=== PATIENT | female | born 1945 | race Caucasian/White ===

== ENCOUNTER → 2018-08-29 13:06 | Outpatient (CLI) | payer OTHER, SELFPAY ==
[2018-08-29 13:18] VITALS: BP 120/71; PULSE 105; RESP 16; TEMP 37; O2SAT 97; BMI 35.3
[2018-08-29 14:01] VITALS: BP 119/64; PULSE 100; RESP 16; TEMP 37.2; O2SAT 96
[2018-08-29 14:39] VITALS: BP 120/64; PULSE 97; RESP 16; TEMP 37.1; O2SAT 98
== END ==
PROVIDERS: Family Provider Family Medicine; PCP Family Medicine; Referring Provider Internal Medicine Hematology & Oncology; Visit Provider Internal Medicine Hematology & Oncology
DX: C92.00 Acute myeloblastic leukemia, not having achieved remission (principal)
CPT/HCPCS: 36430; 86900; 86965; J7040; P9035; A4216

== ENCOUNTER → 2018-09-02 08:45 | Outpatient (CLI) | payer OTHER, SELFPAY ==
[2018-09-02 08:55] VITALS: BP 137/69; PULSE 91; RESP 16; TEMP 36.7; O2SAT 98; BMI 35.3
[2018-09-02 09:47] VITALS: BP 118/65; PULSE 91; RESP 18; TEMP 36.4; O2SAT 98
[2018-09-02 10:21] VITALS: BP 115/65; PULSE 94; RESP 18; TEMP 36.8
[2018-09-02 10:50] VITALS: BP 124/61; PULSE 94; RESP 16; TEMP 37.1
[2018-09-02] MEDS: DiphenhydrAMINE 50 MG/ML Syringe IV (11:05)
--- NOTE | 2018-09-02 11:29 | NURSING ---
HIVES IMPROVED POST BENADRYL, PLATELETS RESTARTED, WILL MONITOR FOR FURTHER SYMPTOMS
[2018-09-02 12:02] VITALS: BP 124/71; PULSE 91; RESP 18; TEMP 36.6; O2SAT 100
== END ==
PROVIDERS: Family Provider Family Medicine; PCP Family Medicine; Referring Provider Internal Medicine Hematology & Oncology; Visit Provider Internal Medicine Hematology & Oncology
DX: C92.00 Acute myeloblastic leukemia, not having achieved remission (principal)
CPT/HCPCS: 36430; 86644; 86900; 86965; J7040; J7050; P9035; A4216

== ENCOUNTER → 2018-09-05 08:42 | Outpatient (CLI) | payer OTHER, SELFPAY ==
[2018-09-05] VITALS (9 sets, daily range): BP systolic 91–124; BP diastolic 50–70; PULSE 82–92; RESP 16–18; TEMP 36.8–37.2; O2SAT 95–99; BMI 35.0
[2018-09-05] MEDS: Acetaminophen 325 MG Tablet 650 MG PO (09:06)
[2018-09-05] MEDS: DiphenhydrAMINE 50 MG/ML Syringe IV (09:06)
--- OUTSIDE RECORDS SUMMARY | 2018-09-05 09:42 | XMS RPT_ITS ---
:1945 Author Organization OHIP Care Team Providers Name Role Phone Stephane Knapp Attending Unavailable Masci, Stephane Referring Unavailable Kornhaus, Yariel Primary Care Unavailable Masci, Stephane Attending Unavailable Masci, Stephane Referring Unavailable Kornhaus, Yariel Primary Care Unavailable Masci, Stephane Attending Unavailable Masci, Stephane Referring Unavailable Kornhaus, Yariel Primary Care Unavailable MASCI STEPHANE PIERRE Attending Unavailable JACKLYN MCCARTY, DR. VALDEZ Primary Care Unavailable DOROTHY SEPULVEDA JR Attending Unavailable NATALYACHRISTINA SAGEIPTMagnolia Admitting Unavailable MOE EDEN Attending Unavailable MASCI, STEPHANE Eubanks Attending Unavailable MOE EDEN Referring Unavailable MASCI, STEPHANE Eubanks Referring Unavailable MASCI, STEPHANE Eubanks Referring Unavailable MASCI, STEPHANE Eubanks Referring Unavailable MASCI, STEPHANE Eubanks Referring Unavailable MASCI, STEPHANE Eubanks Referring Unavailable MASCI, STEPHANE Eubanks Referring Unavailable MASCI, STEPHANE Eubanks Referring Unavailable MASCI, STEPHANE Eubanks Referring Unavailable MASCI, STEPHANE Eubanks Referring Unavailable MASCI, STEPHANE Eubanks Referring Unavailable MASCI, STEPHANE Eubanks Referring Unavailable DOROTHY SEPULVEDA Attending Unavailable IMCA Referring Unavailable IMCA Primary Care Unavailable SOWMYA PEREZ Admitting Unavailable NEMUNASOWMYA STEEL Attending Unavailable JOSÉ MIGUEL VILLASENOR MD Referring Unavailable NEMSHANA SOWMYA Primary Care Unavailable JOSÉ MIGUEL VILLASENOR MD Consulting Unavailable PROVIDER, UNKNOWN Consulting Unavailable PROVIDER, UNKNOWN Consulting Unavailable PROVIDER, UNKNOWN Consulting Unavailable JOSÉ MIGUEL VILLASENOR MD Admitting Unavailable JOSÉ MIGUEL VILLASENOR MD Attending Unavailable JOSÉ MIGUEL VILLASENOR MD Primary Care Unavailable JOSÉ MIGUEL VILLASENOR MD Consulting Unavailable PROVIDER, UNKNOWN Consulting Unavailable PROVIDER, UNKNOWN Consulting Unavailable PROVIDER, UNKNOWN Consulting Unavailable PROBLEMS PROBLEMS DATE TYPE CONDITION / CODE ATTENDING STATUS SOURCE 09/01/2018 Unknown 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, 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 / C92.00(ICD-10) 08/28/2018 Active Retention of BENNETT EDWARDS, Active [place] urine, unspecified [facility] Other / R33.9(ICD-10) [facility] Repository 08/28/2018 Admitting Unknown / DOROTHY SEPULVEDA Active [facility] diagnosis [facility]Unknown[facility] Repository 08/19/2018 Active Other pancytopenia SEKER, Active [place] / D61.818(ICD-10) [facility] Repository 08/18/2018 Active Other specified SEKERES, Active [place] diseases of anus [facility] and rectum / [facility] K62.89(ICD-10) Repository 08/16/2018 Active Immunodeficiency, SEKERES, Active [place] unspecified / [facility] D84.9(ICD-10) [facility] Repository 08/14/2018 Active Acute leukemia of [facility], Active [place] unspecified cell [facility] type not having [facility] achieved remission Repository / C95.00(ICD-10) PROCEDURES PROCEDURES No Procedure Records FoundRESULTS RESULTS [place] CBC Collected: 09/04/2018 Status: F Source: [place] 8:55 AM [facility] MAIN CAMPUS REPOSITORY TYPE CODE TESTS RESULT OUT OF REFERENCE UNITS RANGE LAB WWBC 3.70-11.00 k/uL [place] WBC 7.73 LAB WRBC Low 3.90-5.20 m/uL [place] RBC 2.50 LAB WHGB Low 11.5-15.5 g/dL [place] 8.0 Hemoglobin LAB WHCT Low 36.0-46.0 % [place] 24.3 Hematocrit LAB WMCV 80.0-100.0 fL [place] MCV 97.2 LAB WMCH 26.0-34.0 pg [place] MCH 32.0 LAB WMCHC 30.5-36.0 g/dL [place] MCHC 32.9 LAB WRDW High 11.5-15.0 % [place] RDW 18.5 LAB WPLT Low Alert 150-400 k/uL [place] 9 Platelet Cnt LAB WMPV Low 9.0-12.7 fL [place] MPV 8.7 Result Comment: Test performed at: [facility], [address] [place] [address]. LAB ABSNUC <0.01 k/uL Absolute Rechecked, nRBC called to and read back by: Result Comment: JOSHUA BY Lopez MARIA 0922 TYPE AND SCREEN Collected: 09/04/2018 Status: P Source: [place] 8:51 AM [facility] REPOSITORY Order Comment: PRETRANSFUSION HGB = 8.0 HCT = PERFORMED AT CCFWPRETRANSFUSION PLT = 9 PERFORMED AT CCFWCMV NEG?* NCMV NEG? NGive When? 09/05 @0900Irradiated? NLeukodepleted? YReason for Type AND Screen/Red Cells: ANEMIA TYPE CODE TESTS RESULT OUT OF RANGE REFERENCE UNITS LAB B10.0800 Normal BLOOD O TYPE GEL NEGATIVE LAB B100.4000 Normal Antibody NEGATIVE Screen Performed By: #### B101.7450 #### [facility] [address] [place], [address] [place] ABS GR + CBC Collected: 09/01/2018 Status: F Source: [place] 9:06 AM [facility] [place] REPOSITORY TYPE CODE TESTS RESULT OUT OF REFERENCE UNITS RANGE LAB WWBC 3.70-11.00 k/uL [place] 6.74 WBC Result Comment: No clot detected. LAB WRBC Low 3.90-5.20 m/uL [place] RBC 2.85 LAB WHGB Low 11.5-15.5 g/dL [place] 9.0 Hemoglobin LAB WHCT Low 36.0-46.0 % [place] Hematocrit 26.9 LAB WMCV 80.0-100.0 fL [place] MCV 94.9 LAB WMCH 26.0-34.0 pg [place] MCH 31.6 LAB WMCHC 30.5-36.0 g/dL [place] MCHC 33.5 LAB WRDW High 11.5-15.0 % [place] RDW 18.0 LAB WPLT Low 150-400 k/uL [place] 11 Platelet Cnt Result Comment: CALLED TO JOSHUA,LEONARDO,[id number],BYJOSE MIGUEL LAB WMPV 9.0-12.7 fL [place] MPV 11.6 Result Comment: Test performed at: [facility], [address] [place] [address] Rd[address] [place] [address]. LAB ABGRAN Low 1.45-7.50 k/uL Absol Gran Count 0.19 Performed By: #### WAGCBC #### [facility] [address], [place] [address] ABO RH BLOOD TYPE, Collected: 09/01/2018 Status: F Source: [place] PATIENT 8:57 AM [facility] REPOSITORY Order Comment: PRETRANSFUSION PLT = 11 PERFORMED AT [facility] NEG? NGive When? 09/02Irradiated? N TYPE CODE TESTS RESULT OUT OF RANGE REFERENCE UNITS LAB B10.0800 Normal O BLOOD TYPE NEGATIVE GEL Performed By: #### B10.0010 #### [facility] [address] [place], [place], [id number] PPHR Collected: 09/01/2018 Status: F Source: [place] 8:57 AM [facility] REPOSITORY TYPE CODE TESTS RESULT OUT OF REFERENCE UNITS RANGE LAB U100.0700 [id number] TRANSFUSED PRODUCT: Platelets Apheresis PPHR LR SD COUNT: 2 Performed By: #### U100.0700 #### Non-[facility] - refer to report for specific site [place] CBC Collected: 08/28/2018 Status: F Source: [place] 12:34 PM CLINIC MAIN CAMPUS REPOSITORY TYPE CODE TESTS RESULT OUT OF REFERENCE UNITS RANGE LAB WWBC 3.70-11.00 k/uL [place] 6.44 WBC Result Comment: Result rechecked. LAB WRBC Low 3.90-5.20 m/uL [place] RBC 3.11 LAB WHGB Low 11.5-15.5 g/dL [place] 9.8 Hemoglobin LAB WHCT Low 36.0-46.0 % [place] Hematocrit 29.7 LAB WMCV 80.0-100.0 fL [place] MCV 95.5 LAB WMCH 26.0-34.0 pg [place] MCH 31.5 LAB WMCHC 30.5-36.0 g/dL [place] MCHC 33.0 LAB WRDW High 11.5-15.0 % [place] RDW 17.9 LAB WPLT Low 150-400 k/uL [place] 14 Platelet Cnt Result Comment: Rechecked, called to and read back by: MADELAINE AUUGST,[id number],GUI LAB WMPV 9.0-12.7 fL [place] MPV 11.6 Result Comment: Test performed at: [facility], [address] [place] [address] Rd[address] [place] [address]. LAB ABSNUC <0.01 k/uL Absolute nRBC PRELIM WBC 6.57 Performed By: #### WCBC #### [facility] [address] [place], [place] [address] ABO RH BLOOD TYPE, Collected: 08/28/2018 Status: F Source: [place] PATIENT 12:30 PM [facility] REPOSITORY Order Comment: PRETRANSFUSION PLT = 14 PERFORMED AT [facility] NEG? NGive When? 08/29 1300Irradiated? N TYPE CODE TESTS RESULT OUT OF RANGE REFERENCE UNITS LAB B10.0800 Normal O BLOOD TYPE NEGATIVE GEL Performed By: #### B10.0010 #### [facility] [address] [place], [address] PPHR Collected: 08/28/2018 Status: F Source: [place] 12:30 PM [facility] REPOSITORY TYPE CODE TESTS RESULT OUT OF REFERENCE UNITS RANGE LAB U100.0700 [id number] TRANSFUSED PRODUCT: Platelets Apheresis PPHR LR SD COUNT: 1 Performed By: #### U100.0700 #### Non-[facility] - refer to report for specific site PROGRESS Observed: 08/28/2018 Status: COMPLETED Source: [place] 11:41 AM CLINIC OTHER CAMPUS REPOSITORY HNO ID: [id number]: Dorothy Sepulveda Jr.Service: (none)Author Type: PhysicianType: Progress NotesFiled: 08/28/2018 11:42 AMNote Text:NEW PATIENT HISTORY AND PHYSICAL EXAMPATIENT INFO: Tari Black 73 year oldREFERRING PROVIDER:Data UnavailablePCP: Yariel Villasenor MDLeandro Black is a 73 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 Undergoing treatment.Ended up in retention. Catheter placed. Had subsequently been cathingafter. Voiding well now. pvr 8cc today.Review of SystemsConstitutional: Negative.Respiratory: Negative.Cardiovascular: Negative.Gastrointestinal: Negative.Genitourinary: Negative.Skin: Negative.Neurological: Negative.Psychiatric/Behavioral: Negative.LAB:CreatinineDate Value Ref Range Gryoyr6008/19/2018 0.75 0.58 - 0.96 mg/dL Final No results found for: PSAGlucose, Urine (mg/dL)Date Value08/19/2018 Negative Bilirubin, Urine (no units)Date Value08/19/2018 Negative Ketones, Urine (no units)Date Value08/19/2018 Negative Specific [place], Ur (no units)Date Value08/19/2018 1.014 Hemoglobin/Blood,Ur ( )Date Value08/19/2018 1+ pH, Urine (no units)Date Value08/19/2018 7.0 Protein, Urine (mg/dL)Date Value08/19/2018 Negative Nitrites (no units)Date Value08/19/2018 Negative WBC, Urine (/HPF)Date Value08/19/2018 0-5 MEDICATIONS:ondansetron (ZOFRAN) 8 mg tablet Take 1 tablet by mouth every 8 hours asneeded for Nausea/Vomiting.acyclovir (ZOVIRAX) 400 mg tablet Take 1 tablet by mouth twice daily.tamsulosin ER (FLOMAX) 0.4 mg cap Take 1 capsule by mouth once daily.Catheter (SELF-CATHETER, FEMALE) 14 Fr misc Insert 1 Each into the urethraas needed (5x daily as needed for urinary retention).levoFLOXacin (LEVAQUIN) 500 mg tablet Take 1 tablet by mouth once daily.Take until directed to stop.HISTORIESPAST MEDICAL HISTORYDiagnosis Date- Arthritis- HypertensionFAMILY HISTORYProblem Relation Age of Onset- Diabetes Mother- Heart Father- Breast Cancer SisterSOCIAL HISTORYSocial HistorySubstance Use Topics- Smoking status: Never Smoker- Smokeless tobacco: Never Used- Alcohol use Not on filePHYSICAL EXAMINATIONHt 162.6 cm (5' 4) Wt 94.3 kg (208 lb) BMI 35.70 kg/m?General appearance: Well appearing, alert, in no acute distress andwell-hydrated, well nourishedSkin: Skin color, texture, turgor normal, no suspicious rashes or lesionsRespiratory:+ effortCardiovascular: Not examinedGI: Normal abdominal exam, Abdomen soft, non-tender. No masses,organomegalyMusculoskeletal: normal ROMNeuro: No gross neurologic defecitsGenitourinary: not examinedASSESSMENT:(R33.9) Urinary retention (primary encounter diagnosis)PLAN:Stop cathingStop flomaxFu prCipriano Sepulveda Jr, MD CNOV Observed: 08/28/2018 Status: COMPLETED Source: [place] 11:00 AM CLINIC OTHER CAMPUS REPOSITORY Office Visit (AKURFL) TARI BLACK ([id number]) 1945 [facility] Time Provider Pyzrwctsyh08/11/18 11:00 AM DOROTHY SEPULVEDA JR AKURFL During your visit today, we recorded the following information about you: Weight Height 94.3 kg 1.626 mMmariano Sepulveda Jr, MD 08/28/2018 11:42 AM SignedNEW PATIENT HISTORY AND PHYSICAL EXAMPATIENT INFO: Tari Black 73 year oldREFERRING PROVIDER:Data UnavailablePCP: Yariel Villasenor MDHPLeandro Black is a 73 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 Undergoing treatment.Ended up in retention. Catheter placed. Had subsequently been cathing after.Voiding well now. pvr 8cc today.Review of SystemsConstitutional: Negative.Respiratory: Negative.Cardiovascular: Negative.Gastrointestinal: Negative.Genitourinary: Negative.Skin: Negative.Neurological: Negative.Psychiatric/Behavioral: Negative.LAB:CreatinineDate Value Ref Range Dnfovb6208/19/2018 0.75 0.58 - 0.96 mg/dL Final No results found for: PSAGlucose, Urine (mg/dL)Date Value08/19/2018 Negative Bilirubin, Urine (no units)Date Value08/19/2018 Negative Ketones, Urine (no units)Date Value08/19/2018 Negative Specific [place], Ur (no units)Date Value08/19/2018 1.014 Hemoglobin/Blood,Ur ( )Date Value08/19/2018 1+ pH, Urine (no units)Date Value08/19/2018 7.0 Protein, Urine (mg/dL)Date Value08/19/2018 Negative Nitrites (no units)Date Value08/19/2018 Negative WBC, Urine (/HPF)Date Value08/19/2018 0-5 MEDICATIONS:ondansetron (ZOFRAN) 8 mg tablet Take 1 tablet by mouth every 8 hours as neededfor Nausea/Vomiting.acyclovir (ZOVIRAX) 400 mg tablet Take 1 tablet by mouth twice daily.tamsulosin ER (FLOMAX) 0.4 mg cap Take 1 capsule by mouth once daily.Catheter (SELF-CATHETER, FEMALE) 14 Fr misc Insert 1 Each into the urethra asneeded (5x daily as needed for urinary retention).levoFLOXacin (LEVAQUIN) 500 mg tablet Take 1 tablet by mouth once daily. Takeuntil directed to stop.HISTORIESPAST MEDICAL HISTORYDiagnosis Date- Arthritis- HypertensionFAMILY HISTORYProblem Relation Age of Onset- Diabetes Mother- Heart Father- Breast Cancer SisterSOCIAL HISTORYSocial HistorySubstance Use Topics- Smoking status: Never Smoker- Smokeless tobacco: Never Used- Alcohol use Not on filePHYSICAL EXAMINATIONHt 162.6 cm (5' 4) Wt 94.3 kg (208 lb) BMI 35.70 kg/m?General appearance: Well appearing, alert, in no acute distress andwell-hydrated, well nourishedSkin: Skin color, texture, turgor normal, no suspicious rashes or lesionsRespiratory:+ effortCardiovascular: Not examinedGI: Normal abdominal exam, Abdomen soft, non-tender. No masses, organomegalyMusculoskeletal: normal ROMNeuro: No gross neurologic defecitsGenitourinary: not examinedASSESSMENT:(R33.9) Urinary retention (primary encounter diagnosis)PLAN:Stop cathingStop flomaxFu prnMmariano Sepulveda Jr, MDReferring Provider: SELF [200]Allergies As of Date: 08/28/2018(No Known Allergies)Date Reviewed: 08/28/2018Reviewed by: Dorothy Sepulveda Jr. - Fully AssessedReason for Visit: New Patient [172] Urinary Retention [228]Primary Visit Diagnosis:Urinary retention [R33.9]Order(s):UA DIP, URINE (POC) [[id number]] Order #: [id number] #:[id number] as of 08/28/2018 Sig: ONDANSETRON HCL 8 MG TABLET Take 1 tablet by mouth every * ACYCLOVIR 400 MG TABLET Take 1 tablet by mouth twice * TAMSULOSIN 0.4 MG CAPSULE Take 1 capsule by mouth once * CATHETER 14 FR Insert 1 Each into the urethr* LEVOFLOXACIN 500 MG TABLET Take 1 tablet by mouth once d*Problem List As Of Date 08/28/2018 Noted Resolved Pancytopenia (HCC) [D61.818] INVALID FOR* Priority: B More... HTN (hypertension) [I10] INVALID FOR* Priority: F More... Immunodeficiency (HCC) [D84.9] INVALID FOR* Priority: D More... Hospital discharge follow-up [Z09] More... Headache [R51] 08/20/2018 Priority: B More... Nausea [R11.0] 08/20/2018 Priority: C More... Electrolyte imbalance risk [Z91.89] Priority: F More... More... More... Rectal pain [K62.89] Priority: E More... Urinary retention [R33.9] Priority: H More... Acute leukemia (HCC) [C95.00] INVALID FOR* Priority: A More... Constipation [K59.00] INVALID FOR*08/20/2018 Priority: I More...Disposition: Return if symptoms worsen or fail to improve.Follow-up and Disposition History RecordedEncounter Number: [id number] Status:Closed by DOROTHY SEPULVEDA MD on 08/28/18 [place] MANUAL DIFF Collected: 08/25/2018 Status: F Source: [facility] 1:16 PM [facility] [place] ORDERABLE. REPOSITORY TYPE CODE TESTS RESULT OUT OF REFERENCE UNITS RANGE LAB WLYM % [place] 23 Lymp% LAB WBLAST High 0 % [place] 77 Blast LAB WRBCM [place] RBC Morph Slight Result Comment: Polychromasia Anisocytosis 1+ Ovalocytes LAB WPLTE [place] Platelet estimate Platelet Est decreased Performed By: #### WMANDF, WAGCBC #### [facility] [address] [place] [id number] [place] ABS GR + CBC Collected: 08/25/2018 Status: F Source: [place] 1:16 PM [facility] REPOSITORY TYPE CODE TESTS RESULT OUT OF REFERENCE UNITS RANGE LAB WWBC 3.70-11.00 k/uL [place] WBC 10.58 LAB WRBC Low 3.90-5.20 m/uL [place] RBC 3.25 LAB WHGB Low 11.5-15.5 g/dL [place] 10.2 Hemoglobin LAB WHCT Low 36.0-46.0 % [place] 31.0 Hematocrit LAB WMCV 80.0-100.0 fL [place] MCV 95.4 LAB WMCH 26.0-34.0 pg [place] MCH 31.4 LAB WMCHC 30.5-36.0 g/dL [place] MCHC 32.9 LAB WRDW High 11.5-15.0 % [place] RDW 17.4 LAB WPLT Low 150-400 k/uL [place] 19 Platelet Cnt Result Comment: Called to and read back by: Joshua Knapp's Office 08/25/18 1350 Neto Correct time called 1450 LAB WMPV 9.0-12.7 fL [place] MPV 10.5 Result Comment: Test performed at: [facility] [place], [address] [place] [address]. LAB ABGRAN Low 1.45-7.50 k/uL Absol Gran 0.00 Count LAB ABSNUC <0.01 k/uL Absolute PRELIM nRBC WBC 10.99 Performed By: #### WMANDF, WAGCBC #### [facility] [address] [place], [place] [address] CNCO Observed: 08/25/2018 Status: COMPLETED Source: [place] 12:00 AM [facility] REPOSITORY Letter TextOctober 2017[address] [place] [address]Lrha Ms. Black,The nurses and staff of F019befgdwc unit at [facility] hope this letterfinds you feeling well and progressing in your recovery. It was an honor forus to provide your nursing care. We know that placing our Patients First andmaintaining a culture of continuous improvement, each and every day, areessential to the success of our organization.We want to hear from you. If you have any comments, questions or concernsabout your hospital stay, please feel free to contact me, Camilla [phone] or e-mail [email or web address].Additionally, you will receive a survey in the mail asking you to rate thecare you received while in the hospital. Please take the time to completeand send back the survey. I personally review all the results and wouldappreciate your feedback. Please consider completing this survey for eachindividual visit.Thank you in advance for your participation and thank you for [facility].Sincerely,Camilla Brady WqhyauiO068 Leukemia Unit CNPN Observed: 08/25/2018 Status: COMPLETED Source: [place] 12:00 AM [facility] REPOSITORY Telephone (FISH) TARI BLACK ([id number]) 1945 [facility] Time Provider Cdqyfalupc78/8/18 STEPHANE KNAPP During your visit today, we recorded the following information about you:Emma Campoverde LPN, PAINTER APPRENTICE 08/25/2018 2:53 PM SignedPatient?s identity has been confirmed by name and birthdate: YesCall received from April Richey at 2:50 PM to report an urgent value forPlatelets with a result of 19. Dr. Knapp was notified of the result at 3:00PM.Osmar Yan DO 08/25/2018 3:01 PM SignedNo transfusion indicated. We will be rechecking CBC for possible transfusion onThursday.Sofya Bray Psr 08/25/2018 5:01 PM SignedLeft detailed message on secured voicemail as indicated below.Allergies As of Date: 08/25/2018(No Known Allergies)Date Reviewed: 08/20/2018Reviewed by: Lesli Hook - Fully AssessedReason for Visit: urgent results [Other]Prescriptions as of 08/25/2018 Sig: PROMETHAZINE 25 MG TABLET Take 1 tablet by mouth every * ACYCLOVIR 400 MG TABLET Take 1 tablet by mouth twice * TAMSULOSIN 0.4 MG CAPSULE Take 1 capsule by mouth once * CATHETER 14 FR Insert 1 Each into the urethr* LEVOFLOXACIN 500 MG TABLET Take 1 tablet by mouth once d* ONDANSETRON HCL 4 MG TABLET Take 1 tablet by mouth every *Problem List As Of Date 08/25/2018 Noted Resolved Pancytopenia (HCC) [D61.818] INVALID FOR* Priority: B More... HTN (hypertension) [I10] INVALID FOR* Priority: F More... Immunodeficiency (HCC) [D84.9] INVALID FOR* Priority: D More... Hospital discharge follow-up [Z09] More... Headache [R51] 08/20/2018 Priority: B More... Nausea [R11.0] 08/20/2018 Priority: C More... Electrolyte imbalance risk [Z91.89] Priority: F More... More... More... Rectal pain [K62.89] Priority: E More... Urinary retention [R33.9] Priority: H More... Acute leukemia (HCC) [C95.00] INVALID FOR* Priority: A More... Constipation [K59.00] INVALID FOR*08/20/2018 Priority: I More... Status:Closed by EMMA CAMPOVERDE on 08/25/18 PROGRESS Observed: 08/22/2018 Status: COMPLETED Source: [place] 3:23 PM [facility] REPOSITORY HNO ID: [id number]: Samra (True) Guevara: (none)Author Type: Social WorkerType: Progress NotesFiled: 08/22/2018 3:24 PMNote Text:Social Work Problem Referral NoteINFORMATION/REFERRAL : Tari Black 73 year old female was referred byphysician - Dr. Knapp to [facility] Social Work for the followingreason(s): financial assistance - meals, parking, etc.PERSONS INTERVIEWED: family - Name: Darron and physician - Dr. SchaefferNTERVENTION: Phone Contact, Team Meeting and Information AND ReferralService Co-ordinationAffect/Mood: The patient is noted as patient not presentIDENTIFIED PROBLEMS/NEEDS: FinancialIntervention/Referral to be provided:Arrangements made for continuity ofcareIMPRESSION/PLAN: TRUE spoke with patient's family member Darron and obtainedhousehold income information. TRUE spoke with patient's doctor regardingfinancial needs for [employer]. TRUE provided completed application to pharmacyto submit to [email or web address] APPOINTMENT: YESENIA Choi Observed: 08/22/2018 Status: COMPLETED Source: [place] 12:00 AM [facility] REPOSITORY Social Work (FISH) TARI BLACK ([id number]) 1945 FDate Time Provider Xuoxkxqjmj26/5/18 SAMRA BERKOWITZ (TRUE) HEMAWS During your visit today, we recorded the following information about you:YESENIA Christopher 08/22/2018 3:24 PM SignedSocial Work Problem Referral NoteINFORMATION/REFERRAL : Tari Black 73 year old female [facility] the following reason(s):financial assistance - meals, parking, etc.PERSONS INTERVIEWED: family - Name: Darron and physician - Dr. SchaefferNTERVENTION: Phone Contact, Team Meeting and Information AND Referral ServiceCo-ordinationAffect/Mood: The patient is noted as patient not presentIDENTIFIED PROBLEMS/NEEDS: FinancialIntervention/Referral to be provided:Arrangements made for continuity of careIMPRESSION/PLAN: TRUE spoke with patient's family member Darron and obtainedhousehold income information. TRUE spoke with patient's doctor regardingfinancial needs for [employer]. TRUE provided completed application to pharmacy tosubmit to [email or web address] APPOINTMENT: Nora Choi As of Date: 08/22/2018(No Known Allergies)Date Reviewed: 08/20/2018Reviewed by: Lesli Hook - Fully AssessedReason for Visit: Social Work Services [507]Prescriptions as of 08/22/2018 Sig: PROMETHAZINE 25 MG TABLET Take 1 tablet by mouth every * ACYCLOVIR 400 MG TABLET Take 1 tablet by mouth twice * TAMSULOSIN 0.4 MG CAPSULE Take 1 capsule by mouth once * CATHETER 14 FR Insert 1 Each into the urethr* OXYCODONE 5 MG TABLET Take 1 tablet by mouth every * LEVOFLOXACIN 500 MG TABLET Take 1 tablet by mouth once d* ONDANSETRON HCL 4 MG TABLET Take 1 tablet by mouth every *Problem List As Of Date 08/22/2018 Noted Resolved Pancytopenia (HCC) [D61.818] INVALID FOR* Priority: B More... HTN (hypertension) [I10] INVALID FOR* Priority: F More... Immunodeficiency (HCC) [D84.9] INVALID FOR* Priority: D More... Hospital discharge follow-up [Z09] More... Headache [R51] 08/20/2018 Priority: B More... Nausea [R11.0] 08/20/2018 Priority: C More... Electrolyte imbalance risk [Z91.89] Priority: F More... More... More... Rectal pain [K62.89] Priority: E More... Urinary retention [R33.9] Priority: H More... Acute leukemia (HCC) [C95.00] INVALID FOR* Priority: A More... Constipation [K59.00] INVALID FOR*08/20/2018 Priority: I More... Status:Closed by SAMRA BERKOWITZ on 08/22/18 [place] CBC Collected: 08/20/2018 Status: F Source: [place] 4:20 PM [facility] REPOSITORY TYPE CODE TESTS RESULT OUT OF REFERENCE UNITS RANGE LAB WWBC 3.70-11.00 k/uL [place] WBC 9.47 LAB WRBC Low 3.90-5.20 m/uL [place] RBC 3.19 LAB WHGB Low 11.5-15.5 g/dL [place] 10.0 Hemoglobin LAB WHCT Low 36.0-46.0 % [place] 30.2 Hematocrit LAB WMCV 80.0-100.0 fL [place] MCV 94.7 LAB WMCH 26.0-34.0 pg [place] MCH 31.3 LAB WMCHC 30.5-36.0 g/dL [place] MCHC 33.1 LAB WRDW High 11.5-15.0 % [place] RDW 17.4 LAB WPLT Low 150-400 k/uL [place] 24 Platelet Cnt Result Comment: Result checked and verified LAB WMPV 9.0-12.7 fL [place] MPV 11.4 Result Comment: Test performed at: [facility], [address] [place] [address]. PROGRESS Observed: 08/20/2018 Status: COMPLETED Source: [place] 3:22 PM [facility] REPOSITORY HNO ID: [id number]: Stephane Zuleta: (none)Author Type: PhysicianType: Progress NotesFiled: 08/21/2018 1:04 PMNote Text:Patient referred following [facility] discharge for [facility] for [facility].HPI: Patient is a 73-year-old female with a past medical historysignificant for hypertension who was seen by her PCP for increasingfatigue and headache. CBC evidently revealed pancytopenia with 68% blastson peripheral smear. Patient was admitted directly to main campus.Per recent hospital discharge Principal Problem: Acute leukemia (HCC) Overview: Tari Black is a 73 year old female with PMH of HTN andarthritis being admitted due to concern for acute leukemia after going to her PCP for upset stomach, headaches, and fatigue (CBC showing pancytopenia). - 68% peripheral blasts on CBC, 08/16. - 08/15 peripheral flow: AML - CXR No acute findings, EKG NSR - mIVF, allopurinol, TLS labs daily - BMBx 08/15 -->path in process. - Discussion of treatment options, 08/17 --> Vidaza locally.Appointment scheduled for 08/[address] [place] [address] 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 - CT A/P: no e/o perianal abscess. - Start sitz baths PRN - Continue PRN Oxy IR - Continue topical Lidocaine PRN - Continue bowel regimen -->improving, 08/18.? HTN (hypertension) Overview: - Hold home Lisinopril w/ soft BPs, c/o intermittentdizziness? Electrolyte imbalance risk Overview: - Replete K, Mg per protocol - Reg diet? Urinary retention Overview: Urinary retention noted on 08/15, possibly r/t constipationvs rectal pain - Strict I AND O' s - Continue bowel regimen -Discontinue angel catheter 08/18 - Bladder Scan on 08/19 with >900 cc urine retained; Straight Cath;Urology consulted, appreciate assistance - Urine culture; UA ordered - Flomax started (daily) 08/19? Hospital discharge follow-up Overview: - Appointment scheduled in [place] with Dr. Knapp for 08/20. - Follow up with Urology requested; Patient will get phone call toverify date and time; F/u with PCP int med (Dr Avalos) at [facility] on Saturday at 3PM - Home care consult for straight cath (Supplies per CM)BONE MARROW ASPIRATE, TOUCH PREPARATION, CLOT SECTION, CORE BIOPSY ANDPERIPHERAL BLOOD (A-C):- ?ACUTE MYELOID LEUKEMIA, SEE COMMENT.COMMENT: Further subclassification requires correlation with clinicalpresentation and with pending molecular and cytogenetic studies. 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 She's had nofever. However she said she did feel rather poorly today. No shakingchills. Appetite is doing fair. Her hospitalization was complicated byurinary retention. This is been symptomatic for several weeks prior to herpresentation. She's had to straight catheter this morning. She is using afresh dural catheter each time she does. No dysuria or gross hematuria.She's not had any unusual bleeding but is bruising rather easily.PHYSICAL EXAM:Vitals: Blood pressure 136/77, pulse 88, temperature 37.2 ?C (98.9 ?F),temperature source Oral, height 165.1 cm (5' 5), weight 98.9 kg (218 lb).Fatigued-appearing and in no acute distress.EYES: Sclerae are anicteric bilaterally.NECK: Supple.LYMPHATIC: There is no palpable cervical, supraclavicular adenopathy.RESPIRATORY: Inspiratory breath sounds are of normal intensity in allfields. No rales, wheezes or rhonchi.CARDIOVASCULAR: Rhythm is regular. Normal intensity S1/S2. There is nogallop or murmur.ABDOMEN: The abdomen is nondistended. No organomegaly. No tenderness.Extremities: No swelling or edema.SKIN: No jaundice or rash. No petechiae. 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 She did not want to undergo induction chemotherapywhich I think was a very good decision on her part. We discussed the roleof Vidaza and management of AML especially in elderly patients and Ipointed out some of the trials guiding our decisions. She is a goodcandidate for treatment. She has good social support although she will becommuting quite a distance fairly often to undergo therapy andassess/received transfusional support. She understands that hertransfusion need will likely increase in frequency especially during thefirst several months of treatment. She also understands that the goal oftherapy is likely prolongation without cure. She also understands thetreatment would be indefinitely as long she is tolerating it well and itis leading to clinical benefit, i.e. reduction in transfusion requirementfor prevention of progression leukemia.-I discussed the rationale, logistics, potential risks (including ),benefits and alternatives, as well as the personnel involved in theadministration of azacitadine. I answered her questions in detail and sheverbalized understanding and agreed with the recommended therapy. Pleasesee the electronic consent document for details of doses and schedule.Plan:-CBC/possible transfusion twice weekly.-Begin Vidaza next week.-Bone marrow biopsy after 4-6 months of therapy.-Referral to gynecology for assessment urinary retention.Total muqa-hq-siwy time was >60 minutes with greater than 45 minutes spentdiscussing the issues outlined above and/or coordinating care.Stephane Knapp DO CNOVSP Observed: 08/20/2018 Status: COMPLETED Source: [place] 3:00 PM [facility] REPOSITORY Visit (SP) Office (FISH) TARI BLACK ([id number]) [address] [facility] Provider Fclytaqxnw78/3/18 3:00 PM STEPHANE KNAPP During your visit today, we recorded the following information about you: Temperature Pulse Blood pressure Weight 98.9 degrees 88/minute 136/77 98.9 kg Height 1.651 Roman Knapp DO 08/21/2018 1:04 PM SignedPatient referred following hospital discharge for [facility].HPI: Patient is a 73-year-old female with a past medical history significantfor hypertension who was seen by her PCP for increasing fatigue and headache.CBC evidently revealed pancytopenia with 68% blasts on peripheral smear.Patient was [facility].Per recent hospital discharge Principal Problem: Acute leukemia (HCC) Overview: Tari Black is a 73 year old female with PMH of HTN and arthritisbeing admitted due to concern for acute leukemia after going to her PCP for upset stomach, headaches, and fatigue (CBC showing pancytopenia). - 68% peripheral blasts on CBC, 08/16. - 08/15 peripheral flow: AML - CXR No acute findings, EKG NSR - mIVF, allopurinol, TLS labs daily - BMBx 08/15 -->path in process. - Discussion of treatment options, 08/17 --> Vidaza locally. Appointment scheduled for 08/[address] [place] [address] 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 - CT A/P: no e/o perianal abscess. - Start sitz baths PRN - Continue PRN Oxy IR - Continue topical Lidocaine PRN - Continue bowel regimen -->improving, 08/18.? HTN (hypertension) Overview: - Hold home Lisinopril w/ soft BPs, c/o intermittent dizziness? Electrolyte imbalance risk Overview: - Replete K, Mg per protocol - Reg diet? Urinary retention Overview: Urinary retention noted on 08/15, possibly r/t constipation vsrectal pain - Strict I AND O' s - Continue bowel regimen -Discontinue angel catheter 08/18 - Bladder Scan on 08/19 with >900 cc urine retained; Straight Cath; Urology consulted, appreciate assistance - Urine culture; UA ordered - Flomax started (daily) 08/19? Hospital discharge follow-up Overview: - Appointment scheduled in [place] with Dr. Knapp for 08/20. - Follow up with Urology requested; Patient will get phone call to verify date and time; F/u with PCP int med (Dr Avalos) at [facility] on Saturday at 3PM - Home care consult for straight cath (Supplies per CM)BONE MARROW ASPIRATE, TOUCH PREPARATION, CLOT SECTION, CORE BIOPSY ANDPERIPHERAL BLOOD (A-C):- ?ACUTE MYELOID LEUKEMIA, SEE COMMENT.COMMENT: Further subclassification requires correlation with clinicalpresentation and with pending molecular and cytogenetic studies. 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 She's had no fever.However she said she did feel rather poorly today. No shaking chills. Appetiteis doing fair. Her hospitalization was complicated by urinary retention. Thisis been symptomatic for several weeks prior to her presentation. She's had tostraight catheter this morning. She is using a fresh dural catheter each timeshe does. No dysuria or gross hematuria. She's not had any unusual bleeding butis bruising rather easily.PHYSICAL EXAM:Vitals: Blood pressure 136/77, pulse 88, temperature 37.2 ?C (98.9 ?F),temperature source Oral, height 165.1 cm (5' 5), weight 98.9 kg (218 lb).Fatigued-appearing and in no acute distress.EYES: Sclerae are anicteric bilaterally.NECK: Supple.LYMPHATIC: There is no palpable cervical, supraclavicular adenopathy.RESPIRATORY: Inspiratory breath sounds are of normal intensity in all delgado.No rales, wheezes or rhonchi.CARDIOVASCULAR: Rhythm is regular. Normal intensity S1/S2. There is no gallopor murmur.ABDOMEN: The abdomen is nondistended. No organomegaly. No tenderness.Extremities: No swelling or edema.SKIN: No jaundice or rash. No petechiae. 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 She did not want to undergo induction chemotherapy which Ithink was a very good decision on her part. We discussed the role of Vidaza andmanagement of AML especially in elderly patients and I pointed out some of thetrials guiding our decisions. She is a good candidate for treatment. She hasgood social support although she will be commuting quite a distance fairlyoften to undergo therapy and assess/received transfusional support. Sheunderstands that her transfusion need will likely increase in frequencyespecially during the first several months of treatment. She also understandsthat the goal of therapy is likely prolongation without cure. She alsounderstands the treatment would be indefinitely as long she is tolerating itwell and it is leading to clinical benefit, i.e. reduction in transfusionrequirement for prevention of progression leukemia.-I discussed the rationale, logistics, potential risks (including ),benefits and alternatives, as well as the personnel involved in theadministration of azacitadine. I answered her questions in detail and sheverbalized understanding and agreed with the recommended therapy. Please seethe electronic consent document for details of doses and schedule.Plan:-CBC/possible transfusion twice weekly.-Begin Vidaza next week.-Bone marrow biopsy after 4-6 months of therapy.- Referral to gynecology for assessment urinary retention.Total nzck-wj-pjen time was >60 minutes with greater than 45 minutes spentdiscussing the issues outlined above and/or coordinating care.[facility] Provider: MOE EDEN [[id number]]Allergies As of Date: 08/20/2018(No Known Allergies)Date Reviewed: 08/20/2018Reviewed by: Lesli Hook - Fully AssessedReason for Visit: New Patient Evaluation [154]Primary Visit Diagnosis: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 FOR NAUSEADisp: 30 tabletRfl: 5 [place] CBC [SQWCBC] Order #: [id number] FUTUREFollow-up and Disposition History RecordedPrescriptions as of 08/20/2018 Sig: ACYCLOVIR 400 MG TABLET Take 1 tablet by mouth twice * TAMSULOSIN 0.4 MG CAPSULE Take 1 capsule by mouth once * CATHETER 14 FR Insert 1 Each into the urethr* OXYCODONE 5 MG TABLET Take 1 tablet by mouth every * LEVOFLOXACIN 500 MG TABLET Take 1 tablet by mouth once d* ONDANSETRON HCL 4 MG TABLET Take 1 tablet by mouth every * PROMETHAZINE 25 MG TABLET Take 1 tablet by mouth every *Problem List As Of Date 08/20/2018 Noted Resolved Pancytopenia (HCC) [D61.818] INVALID FOR* Priority: B More... HTN (hypertension) [I10] INVALID FOR* Priority: F More... Immunodeficiency (HCC) [D84.9] INVALID FOR* Priority: D More... Hospital discharge follow-up [Z09] More... Headache [R51] 08/20/2018 Priority: B More... Nausea [R11.0] 08/20/2018 Priority: C More... Electrolyte imbalance risk [Z91.89] Priority: F More... More... More... Rectal pain [K62.89] Priority: E More... Urinary retention [R33.9] Priority: H More... Acute leukemia (HCC) [C95.00] INVALID FOR* Priority: A More... Constipation [K59.00] INVALID FOR*08/20/2018 Priority: I More...Encounter Status:Closed by STEPHANE KNAPP DO on 08/21/18 CNDS Observed: 08/19/2018 Status: COMPLETED Source: [place] 7:03 PM [facility] REPOSITORY HNO ID: [id number]: Moe Mcdanielervice: Hematology/OncologyAuthor Type: PhysicianType: Discharge SummariesFiled: 09/02/2018 11:12 AMNote Text: DISCHARGE SUMMARYPATIENT NAME: Tari Black ADMISSION DATE: 08/14/2018MRN: [id number] DISCHARGE DATE: 08/19/2018ATTENDING PHYSICIAN: Dr Eden Code Status: Not on fileHighest Readmission Risk Score: 20 The 30 day readmissions risk score is derived from an internallyvalidated risk model which evaluates patient level characteristics,utilization history, medication orders and lab results up until the day ofdischarge. Patients with a score of 40 or above are considered highestrisk for readmission. Specific patient level drivers will be listed at thebottom of the summary.REASON FOR HOSPITALIZATION: Acute LeukemiaDIAGNOSIS: AMLOPERATIONS DURING HOSPITALIZATION: NonePROCEDURES DURING HOSPITALIZATION:[id number] brainHOSPITAL COURSE:Principal Problem: Acute leukemia (HCC) Overview: Tari Black is a 73 year old female with PMH of HTN andarthritis being admitted due to concern for acute leukemia after going to her PCP for upset stomach, headaches, and fatigue (CBC showing pancytopenia). - 68% peripheral blasts on CBC, 08/16. - 08/15 peripheral flow: AML - CXR No acute findings, EKG NSR - mIVF, allopurinol, TLS labs daily - BMBx 08/15 -->path in process. - Discussion of treatment options, 08/17 --> Vidaza locally.Appointment scheduled for 08/[address] [place] [address] 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 - CT A/P: no e/o perianal abscess. - Start sitz baths PRN - Continue PRN Oxy IR - Continue topical Lidocaine PRN - Continue bowel regimen -->improving, 08/18. HTN (hypertension) Overview: - Hold home Lisinopril w/ soft BPs, c/o intermittentdizziness Electrolyte imbalance risk Overview: - Replete K, Mg per protocol - Reg diet Urinary retention Overview: Urinary retention noted on 08/15, possibly r/t constipationvs rectal pain - Strict I AND O' s - Continue bowel regimen -Discontinue angel catheter 08/18 - Bladder Scan on 08/19 with >900 cc urine retained; Straight Cath;Urology consulted, appreciate assistance - Urine culture; UA ordered - Flomax started (daily) 08/19 Hospital discharge follow-up Overview: - Appointment scheduled in [place] with Dr. Knapp for 08/20. - Follow up with Urology requested; Patient will get phone call toverify date and time; F/u with PCP int med (Dr Avalos) at [facility] on Saturday at 3PM - Home care consult for straight cath (Supplies per CM)Resolved Problems: Headache Overview: - Resolved. - CT brain 08/14- Negative for acute findings - PRN oxy Nausea Overview: ?secondary to acute leukemia - Zofran PRN available - resolved Constipation Overview: -likely exacerbated by opioid use -Senna BID, Colace BID, Miralax daily -continue Lactulose PRN -resolvedCONSULTING TEAMS DURING HOSPITALIZATION: ColorectalPATIENT CONDITION AT DISCHARGE: StableDISCHARGE DISPOSITION: Home with Home Health CareINFORMATION PROVIDED TO PATIENT: Discharge instructionsDIET: Resume pre-hospital dietACTIVITY: Resume pre-hospital activityWOUND/SURGICAL SITE CARE: NoneALLERGIESNo Known AllergiesDISCHARGE MEDICATION:Discharge Medication List as of 08/19/2018 5:31 PMSTART taking these medicationsacyclovir (ZOVIRAX) 400 mg tabletTake 1 tablet by mouth twice daily.Normal, Disp-60 tablet, R-0tamsulosin ER (FLOMAX) 0.4 mg capTake 1 capsule by mouth once daily.Normal, Disp-14 capsule, R-0, Long-termCatheter (SELF-CATHETER, FEMALE) 14 Fr miscInsert 1 Each into the urethra as needed (5x daily as needed for urinaryretention).Print RX, Disp-200 Each, R-0oxyCODONE IR (ROXICODONE) 5 mg immediate release tabletTake 1 tablet by mouth every 6 hours as needed for Pain for up to 5 days.Print RX, Disp-10 tablet, R-0Dx: 1. Rectal painCONTINUE these medications which have CHANGEDlevoFLOXacin (LEVAQUIN) 500 mg tabletTake 1 tablet by mouth once daily. Take until directed to stop.Normal, Disp-30 tablet, R-0ondansetron (ZOFRAN) 4 mg tabletTake 1 tablet by mouth every 6 hours as needed. FOR NAUSEANormal, Disp-30 tablet, R-0FUTURE APPOINTMENTS:See schedule for follow up appointmentsThe patient's risk for 30-day readmission is determined using thefollowing contributing factors:Pt variables contributing to increased readmission risk: 12 Most Recent BUN Result 10.4 First Resulted Calcium During Admission 1 Insurance - Self Pay 1 Discharge Disposition - Home 1 History of AnemiaSIGNATURE: Harini Cassidy APRN.CNP PAGER/CONTACT #: [phone]: August 20, 2018TIME: 8:32 AMpotential risks of hospital discharge and parameters to return reviewedwith patient in detail. URINALYSIS Collected: 08/19/2018 Status: F Source: [place] 6:35 PM [facility] REPOSITORY TYPE CODE TESTS RESULT OUT OF RANGE REFERENCE UNITS LAB UCOL Yellow Color Yellow LAB [facility] Abnormal Clear Clarity Cloudy Alert LAB UGLUC Negative mg/dL Glucose, Urine Negative LAB UBIL Negative Bilirubin, Urine Negative LAB UKET Negative Ketones, Urine Negative LAB USPG 1.005-1.030 Specific 1.014 [place], Ur LAB UHGB Abnormal Negative 1+ Alert Hemoglobin/Blood, Ur LAB UPH 4.5-8.0 pH 7.0 LAB UPROT Negative mg/dL Protein, Urine Negative LAB UUROB Abnormal Normal Urobilinogen Alert Elevated LAB UNITR Negative Nitrites Negative LAB ULKEST Negative Leukest Negative LAB UCOM Comments SEE COMMENT Result Comment: Microscopic Examination Performed LAB UWBC 0-5 /HPF WBC 0-5 LAB URBC 0-3 /HPF RBC 0-3 LAB UCAST Abnormal Alert 0 /LPF SEE Cast COMMENT Result Comment: 1-3 Hyaline Cast LAB UEPI /HPF Epithelial Cells SEE COMMENT Result Comment: Few Squamous Epithelial Cells LAB UMCOM Urine Bradford SEE COMMENT Comment Result Comment: Result rechecked. Performed By: #### UA #### [facility] [address] [place], [place] [id number] Observed: 08/19/2018 Status: F Source: [place] URINE CULTURE 6:35 PM [facility] REPOSITORY Sp. Request/Comment: - Specimen received in preservativeCulture Result - No growth (<1,000 CFU/ml) Performed By: #### URCUL ####[facility] [address] [place], [place] [id number] PLAN OF CARE Observed: 08/19/2018 Status: COMPLETED Source: [place] 3:47 PM [facility] REPOSITORY HNO ID: [id number]: Cristina Kurtz (Meat Process Worker)Service: (none)Author Type: (none)Type: Plan of CareFiled: 08/19/2018 3:51 PMNote Text:PHARMACY BEDSIDE DELIVERY SERVICEPatient Name: Tari BlackMRN: [id number] marked outpatient medications were Filled at: [facility] anddelivered to the patient's bedside to patientMedication ListSTART taking these medicationsacyclovir 400 mg tabletCommonly known as: ZOVIRAXTake 1 tablet by mouth twice daily.DeliveredCatheter 14 Fr MiscCommonly known as: SELF-CATHETER, FEMALEInsert 1 Each into the urethra as needed (5x daily as needed for urinaryretention).levoFLOXacin 500 mg tabletCommonly known as: LevaQUINTake 1 tablet by mouth once daily. Take until directed to stop.Didn't receive rx for this medicationondansetron 4 mg tabletCommonly known as: ZOFRANTake 1 tablet by mouth every 6 hours as needed. FOR NAUSEADidn't receive rx for this medicationoxyCODONE IR 5 mg immediate release tabletCommonly known as: ROXICODONETake 1 tablet by mouth every 6 hours as needed for Pain for up to 5 days.Deliveredtamsulosin ER 0.4 mg CapCommonly known as: FLOMAXTake 1 capsule by mouth once daily.DeliveredApril Garland (Meat Process Worker)PAGER: [phone] 2017 3:47 PM PLAN OF CARE Observed: 08/19/2018 Status: COMPLETED Source: [place] 3:23 PM [facility] REPOSIT[facility] HNO ID: [id number]: Jez (Iglesia) JoealService: UrologyAuthor Type: ResidentType: Plan of CareFiled: 08/19/2018 3:26 PMNote Text:Notified by primary team that they would like to discharge patient todayand have her be seen as outpatient for urinary retention. She wascounseled on ISC v indwelling angel by primary and patient desires toperform ISC.- will arrange o/p urology follow up (requested on [employer])- please have her call urology appt scheduling [phone], if she hasnot heard back about appointment request- send urine culture to r/o UTI as source of retention- minimize anticholinergics, narcotics- aggressive bowel regimen to treat constipationMartín Berumen, [id number] NURSING PROG Observed: 08/19/2018 Status: COMPLETED Source: [place] 2:28 PM [facility] [place] REPOSITORY HNO ID: [id number]: Aggie (Rn) LORNA Madridervice: (none)Author Type: Registered NurseType: Nursing Progress NoteFiled: 08/19/2018 7:12 PMNote Text: Nursing Progress NotePatient Name: Tari BlackMRN: [id number] Location: [place] [id number] Fzhyv Note:6731-3391: Pt resting in bed on assessment. Pt up to bathroom to urinate.Abdomen more distended today than yesterday. Pt voiding frequently butdoes not feel as though she is emptying bladder. Bladder scan completed,>914cc. YOUTH DEVELOPMENT PROFESSIONALHarini notified and orders for straight cath being placed.1030: Fluids D/C'd. Straight cath with 825cc output. Pt stated she feltmuch better and pressure was gone.1245: At bedside for atbx. Discussed with family learning how to straightcath pt, gave material for them to review.1400: Working with Tumbler Dyeing Machine Operator, Harini Wilburn NP for pt D/[id number]: Reviewed D/c papers with pt and family. Answered questions andreviewed medications. Bedside pharm delivered medications. Gave verbalinstructions while demonstrating to pt family how to straight cath pt forurine retention. Family asked questions and verbalized understanding. Homehealth appt scheduled for tomorrow. UA/UC collected and sent to [id number]: Pt discharge home.This note was completed by: Aggie Madrid RN SOCIAL WORK Observed: 08/19/2018 Status: COMPLETED Source: [place] 2:05 PM [facility] REPOSITORY HNO ID: [id number]: Ruba Daleervice: Social WorkAuthor Type: Social WorkerType: Social WorkFiled: 08/19/2018 2:09 PMNote Text:SOCIAL WORK FOLLOW UP NOTE:CANCER CENTERDate of service:08/19/2018Tari Black is being seen for a follow up social work visit.Today's visit includes: daughtersTOPICS ADDRESSED: Coping/support. SW met with patient daughters toprovide support and education regarding caregiver role at home. Daughtershad numerous questions. SW suggested they speak with rn and nursingassistants. SW to remain available as needed.PLAN: Continue follow up as needed and Provide emotional support topatient/familyF/U APPOINTMENT: YESENIA Long CASE MANAGEM Observed: 08/19/2018 Status: COMPLETED Source: [place] 1:59 PM [facility] REPOSITORY HNO ID: [id number]: Shavon (Rn) Jennifer, LORNAervice: Case ManagementAuthor Type: Registered NurseType: Care Mgt Progress NoteFiled: 08/19/2018 3:50 PMNote Text:CARE MANAGEMENT DISCHARGE NOTESERVICE DATE: 08/19/2018SERVICE TIME: 1:59 PM LOS: 5 daysFREEDOM OF CHOICE GIVEN:Yes CM spoke to Tari chen FOCFinancial Disclosure ProvidedThe patient and/or family has been given the Provider List: YesPreference: [facility], [facility] [place], [facility], [facility] CenterCase manager managed backup services met with patient at bedside. Explained role of RN CaseManager and discharge planning.Pt family at bedside. Pt was open to [facility] at discharge for more self-cathteaching, and clinical RN José Miguel to help do teaching prior to discharge. Ptwill discharge to home address, CM to start referral.CM contacted [facility] for self-cath supplies. CM faxed over script andH AND P and face sheet to Oriana Rdz at [facility] on phone, stated they can help with supplies, and CM told clinicalRN to send a few days supply home with pt, as takes a few days forHastings to send to patient home.ADDENDUM: 3:49pm HHC at discharge will be [facility] and [facility] CM to send discharge summary via [employer]. CM updatedCNP, clinical RN and gave pt information sheet for reference.Family to transport.SIGNATURE: Shavon Rodriguez RN PATIENT NAME: Tari Washington: August 19, 2018 : 1:59 PM PAGER/CONTACT #: [phone] PLAN OF CARE Observed: 08/19/2018 Status: COMPLETED Source: [place] 1:54 PM [facility] REPOSITORY HNO ID: [id number]: Cristina Kurtz ([employer])Service: (none)Author Type: (none)Type: Plan of CareFiled: 08/19/2018 1:54 PMNote Text:Pharmacy Discharge Medication Service:This patient has elected to [facility] their discharge prescriptions [facility]oughthe [facility]. Theprescriptions are currently being processed. A follow-up note will beentered once the prescriptions have been filled and delivered to thepatient. Please contact me with any questions or updates to the patient'sdischarge medications.Cristina Kurtz ([employer])DCT Contact Info: [phone] PLAN OF CARE Observed: 08/19/2018 Status: COMPLETED Source: [place] 1:53 PM [facility] REPOSITORY HNO ID: [id number]: Cristina Kurtz ([employer])Service: (none)Author Type: (none)Type: Plan of CareFiled: 08/19/2018 1:53 PMNote Text:SQUEEGEE OPERATOR BEDSIDE DELIVERY SURVEY1. Patient to use [facility] Bedside Delivery - YES2. If fax, patient would like us to fax prescriptions to Pharmacy ofchoice a. Pharmacy: b. Location: c. Phone:3. Insurance card on file - N/A4. Credit card for payment - N/A PROGRESS Observed: 08/19/2018 Status: COMPLETED Source: [place] 7:26 AM [facility] REPOSITORY HNO ID: [id number]: Harini Navarrete) AscencioniService: Hematology/OncologyAuthor Type: Nurse PractitionerType: Progress NotesFiled: 08/19/2018 1:52 PMNote Text:ONCOLOGY LEUKEMIA PROGRESS NOTESERVICE DATE: 08/19/2018SERVICE TIME: 0830SubjectiveINTERIM HISTORY- Afebrile; VSS- Persistent urinary retention- Urology consulted- Nurse teaching straight Cath; Will f/u with urology outpatient- Anticipating discharge todayREVIEW OF SYSTEMSGENERAL: No fever or chills.HEENT: No headache, nose bleed, mouth pain or sore throat.RESPIRATORY: No cough or shortness of breath.CARDIOVASCULAR: No chest pain, palpitations or leg swelling.GI: Eating, drinking and taking pills adequately; no difficulty swallowingGU: + urinary retentionMUSCULOSKELTAL: No pain.SKIN: No rash or itching.VENOUS ACCESS: Peripheral. No concerns.ObjectivePHYSICAL EXAMVITALS: Temp (24hrs), Av.8 ?C (98.2 ?F), Min:36.5 ?C (97.7 ?F),Max:36.9 ?C (98.4 ?F) BP 126/59 Pulse 83 Temp 36.9 ?C (98.5 ?F) (Oral) Resp 18 Ht167.5 cm (5' 5.95) Wt 101.5 kg (223 lb 11.2 oz) SpO2 97% BMI36.17 kg/m?INTAKE AND OUTPUTIntake/Output Summary (Last 24 hours) at 08/19/18 1352Last data filed at 08/19/18 1300 Gross per 24 hourIntake 1690 mlOutput 3277 mlNet -1587 mlGeneral: Alert, NADHEENT: Anicteric sclera. No oral lesions or erythema.Heart/CV: RRR, No murmurs/rubs/gallops.Lungs/Resp/Chest: ?Lungs CTAB, no wheezing, rhonchi, or crackles.Abd: ?Soft, non tender, non distended. Bowel sounds present.Extremities: no LE edema, no cyanosis.Skin: No rashes appreciated.Neuro/Psych: ?Follows commands appropriately. Affect appropriate forsetting and situation.Line Site: PIV site without erythema, tenderness or drainage.MEDICATIONSCurrent hospital medications:tamsulosin ER 0.4 mg cap(s) (FLOMAX) 0.4 mg ORAL DAILYbacitracin-polymyxin B 500-10,000 unit/gram (POLYSPORIN) TOPICAL TIDpolyethylene glycol 3350 17 g packet (MIRALAX, GLYCOLAX) 17 g ORAL DAILYPRNmelatonin 3 mg tab(s) 3 mg ORAL AT BEDTIMElidocaine 2 % (XYLOCAINE) MUCOUS MEMBRANE TID PRNdocusate sodium 100 mg cap(s) (COLACE) 100 mg ORAL BIDsenna 8.6 mg tab(s) (SENOKOT) 8.6 mg ORAL BIDpiperacillin-tazobactam 3.375 g in dextrose (iso-osmotic) 50 mL (ZOSYN)3.375 g INTRAVENOUS q 6 HoxyCODONE IR 5-10 mg tab(s) (ROXICODONE) 5-10 mg ORAL q 4 H PRNiv contrast (radiology procedure) INTRAVENOUS DIRECTED PRNallopurinol 300 mg tab(s) (ZYLOPRIM) 300 mg ORAL DAILYacyclovir 400 mg tab(s) (ZOVIRAX) 400 mg ORAL BIDpotassium chloride iv piggyback 20 mEq/100 mL 20 mEq INTRAVENOUS PRNpotassium chloride ER 40-60 mEq tab(s) (K-DUR, KLOR-CON) 40-60 mEq ORALDAILY PRNmagnesium sulfate in sterile water 4 g iv piggyback 4 g INTRAVENOUS PRNsalt and soda 10 mL oral liquid 10 mL ORAL QIDnystatin 5 mL CUP (MYCOSTATIN) 5 mL ORAL UONlhrlkyfljcWOSDW-bdsvre-ofslekrnd 10 mL oral liquid (BMX 1:1:1) 10 mL ORALq 4 H PRN0.9% NaCl 3-5 mL 3-5 mL INTRAVENOUS q 12 Hacetaminophen 650 mg tab(s) (TYLENOL) 650 mg ORAL q 4 H PRNdiphenhydrAMINE 25 mg (BENADRYL) 25 mg ORAL q 6 H PRNondansetron (PF) 8 mg injection (ZOFRAN) 8 mg INTRAVENOUS q 8 H PRNlactulose 20 g CUP (DUPHALAC, CONSTULOSE) 20 g ORAL BIDLABORATORY DATARecent Labs 08/18/1802WBC 7.23 7.25 8.47RBC 2.95* 2.51* 2.62*HB 9.2* 7.9* 8.4*HCT 26.7* 23.0* 24.2*PLT 23* 22* 23*MCV 90.5 91.6 92.4MCH 31.2 31.5 32.1MCHC 34.5 34.3 34.7RDWCV 17.6* 17.4* 17.5*MPV 10.2 11.2 11.6NEUTP 2.0 1.8 3.5ABSNEUT 0.14* 0.13* 0.30*ABLAST 59.0* 71.4* 63.2*LYMPHP 35.0 26.8 33.3MONOP 4.0 0.0 0.0EODINP 0.0 0.0 0.0BASOP 0.0 0.0 0.0ABSMONO 0.29 0.00 0.00ABSEOSIN 0.00 0.00 0.00ABSBASO 0.00 0.00 0.00Recent Labs 08/18/1802NA 140 134* 134*K 4.1 4.1 4.4CHLOR 103 101 99CO2 26 24 24CREAT 0.75 0.74 0.81BUN 12 10 15GLUC 134* 162* 132*P 3.0 2.4* 3.0TPROT 6.4 6.1* 6.3ALB 3.5* 3.2* 3.4*CA 10.0 9.5 9.6ALKPHOS 67 63 62TBILI 1.0 1.1 1.5*AST 19 20 22ALT 20 18 15URICACID 1.8* 1.8* 2.6PTSEC 10.9 10.9 11.2INR 1.0 1.0 1.1APTT 24.7 26.2 25.9DATA:Diagnostic tests reviewed for today's visit:Most recent labs and imaging results.Assessment/PlanActive Hospital Problems Diagnosis Date Noted- 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 Appointmentscheduled for 08/[address] [place] [address] 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- No visible signs of hemorrhoids, fissure or abnormality- CORS consulted, appreciate assistance.- CT A/P: no e/o perianal abscess.- Start sitz baths PRN- Continue PRN Oxy IR- Continue topical Lidocaine PRN- Continue bowel regimen-->improving, 08/18.- HTN (hypertension) 08/14/2018 Priority: F Overview Note: - Hold home Lisinopril w/ soft BPs, c/o intermittent dizziness- Electrolyte imbalance risk Priority: F Overview Note: - Replete K, Mg per protocol- Reg diet- Urinary retention Priority: H Overview Note: Urinary retention noted on 08/15, possibly r/t constipation vs rectalpain- Strict I AND O' s- Continue bowel regimen-Discontinue angel catheter 08/18- Bladder Scan on 08/19 with >900 cc urine retained; Straight Cath; Urologyconsulted, appreciate assistance- Urine culture; UA ordered- Flomax started (daily) 08/19- Constipation 08/17/2018 Priority: I Overview Note: -likely exacerbated by opioid use-Senna BID, Colace BID, Miralax daily-continue Lactulose PRN-resolved- Hospital discharge follow-up Overview Note: - Appointment scheduled in [place] with Dr. Knapp for 08/20.- Follow up with Urology requested; Patient will get phone call to verifydate and time; F/u with PCP int med (Dr Avalos) at [facility] on Saturday at 3PM- Home care consult for straight cath (Supplies per CM)Medication and Non-Pharmacologic VTE Prophylaxis/Wiewyjozsuuqdp14/27/18 1515 vte pharmacologic prophylaxis contraindicated (fl,oh)08/14/18 1515 vte non-pharmacologic prophylaxis contraindicated (fl,oh)08/14/18 1515 activity - mobilize patient (mi,oh)SIGNATURE: Harini Cassidy APRN.CNP PATIENT NAME: Tari BlackDATE: August 19, 2018 : 7:26 AM PAGER/CONTACT #: [phone]/MEDICAL ONCOLOGY STAFF:TEACHING PHYSICIAN NOTE OF PERSONAL INVOLVEMENT IN CAREI have reviewed the progress note obtained and documented by the MARISSA and Ipersonally participated in the murphy components. I have discussed the caseand management of the patient's care with the MARISSA. The following commentsrevise or confirm relevant murphy components of the MARISSA.IMPRESSION/PLAN:Counts fairly stable.ADAME, consult urologyNo txf needs.Patient [place] decided [place]igned: Moe Marieager Number: [id number] and Time of Service: [phone] by responsible provider. FIBRINOGEN Collected: 08/19/2018 Status: F Source: [place] 5:32 AM [facility] REPOSITORY TYPE CODE TESTS RESULT OUT OF REFERENCE UNITS RANGE LAB FIBCT High 200-400 mg/dL Fibrinogen 424 Performed By: #### FIBCT, PT, PTT, LD6, CMP, PHOS, URIC, CBCDIF #### [facility] [address] [place], [place] [address] PROTIME Collected: 08/19/2018 Status: F Source: [place] 5:32 AM [facility] REPOSITORY TYPE CODE TESTS RESULT OUT OF RANGE REFERENCE UNITS LAB PSEC 9.7-13.0 sec PT 10.9 Sec LAB INR 0.9-1.3 PT 1.0 INR Result Comment: Vitamin K Antagonist (VKA) Therapeutic Range: INR 2 to 3 (Target INR of 2.5) Note: For patients treated with VKA drugs, such as warfarin, the [place] [employer] 2012 Guideline recommends a therapeutic INR range of 2 to 3 (target INR of 2.5). This recommendation includes high-risk patients with antiphospholipid syndrome with previous arterial or venous thromboembolism, current-generation mechanical or bioprosthetic aortic heart valve replacement. Note: Patients with mechanical aortic valve replacement and additional risk factors for thromboembolic events (atrial fibrillation, previous thromboembolism, LV dysfunction, hypercoagulable conditions) or an older generation mechanical AVR (i.e., ball in-Cage) or any mechanical MVR should have a INR therapeutic range of 2.5 to 3.5 (target INR of 3). Jhon GH, et al. Chest 2012, 141:7S-47S Diallo PAZ, et al. [facility] 2017, 70: 252-289 Performed By: #### FIBCT, PT, PTT, LD6, CMP, PHOS, URIC, CBCDIF #### [facility] [address] [place] [id number] APTT Collected: 08/19/2018 Status: F Source: [place] 5:32 AM [facility] REPOSITORY TYPE CODE TESTS RESULT OUT OF RANGE REFERENCE UNITS LAB APTT 23.0-32.4 sec APTT 24.7 Result Comment: Unfractionated Heparin Therapeutic Ranges: Standard Heparin Nomogram: 53 to 78 seconds (anti-Xa level of 0.3 to 0.7 U/ml) Low Dose/ACS Nomogram: 49 to 67 seconds (anti-Xa level of 0.2 to 0.5 U/ml) Stroke Treatment Nomogram: 49 to 67 seconds (anti-Xa level of 0.2 to 0.5 U/ml) Note: The APTT therapeutic range has been determined for the current lot of laboratory APTT reagent in use throughout the [facility]. Performed By: #### FIBCT, PT, PTT, LD6, CMP, PHOS, URIC, CBCDIF #### [facility] [address] [place], [place] [address] LD Collected: 08/19/2018 Status: F Source: [facility] 5:32 AM [facility] REPOSITORY TYPE CODE TESTS RESULT OUT OF RANGE REFERENCE UNITS LAB LD High 135-214 U/L LD 282 Performed By: #### FIBCT, PT, PTT, LD6, CMP, PHOS, URIC, CBCDIF #### [facility] [address] [place], [place] [address] COMP METABOLIC PANEL Collected: 08/19/2018 Status: F Source: [place] 5:32 AM [facility] REPOSITORY TYPE CODE TESTS RESULT OUT OF REFERENCE UNITS RANGE LAB TP 6.3-8.0 g/dL Protein, Total 6.4 LAB ALB Low 3.9-4.9 g/dL Albumin 3.5 LAB CA 8.5-10.2 mg/dL Calcium, Total 10.0 LAB TBIL 0.2-1.3 mg/dL Bilirubin, 1.0 Total LAB ALKP 34-123 U/L Alkaline 67 Phosphatase LAB AST 13-35 U/L AST 19 LAB GLU High 74-99 mg/dL Glucose 134 Result Comment: The [place] Diabetes Association (ADA) provides guidance for cutoff values for fasting glucose and r andom glucose. The ADA defines fasting as no caloric intake for at least 8 hours. Fasting plasma glucose results between 100 to 125 mg/dL indicate increased risk for diabetes (prediabetes). Fasting plasma glucose results greater than or equal to 126 mg/dL meet the criteria for diagnosis of diabetes. In the absence of unequivocal hyperglycemia, results should be confirmed by repeat testing. In a patient with classic symptoms of hyperglycemia or hyperglycemic crisis, random plasma glucose results greater than or equal to 200 mg/dL meet the criteria for diagnosis of diabetes. Reference: Standards of Medical Care in Diabetes 2016, [place] [employer] Association. Diabetes Care. 2016.39(Suppl 1). LAB BUN 7-21 mg/dL BUN 12 LAB CRET 0.58-0.96 mg/dL Creatinine 0.75 LAB NA 136-144 mmol/L Sodium 140 LAB K 3.7-5.1 mmol/L Potassium 4.1 LAB CL 97-105 mmol/L Chloride 103 LAB CO2 22-30 mmol/L CO2 26 LAB AGAP 9-18 mmol/L Anion Gap 11 LAB ALT 7-38 U/L ALT 20 LAB GFRAA eGFR- >60 Amer. LAB GFRNAA . eGFR-All Other >60 Races Result Comment: eGFR (Estimated GFR) Units of measure: mL/min/1.73 meters squared eGFR is derived from the reexpressed MDRD Study equation using the following parameters: serum creatinine, age, gender and race. The creatinine assay has been calibrated to be traceable to IDMS. An eGFR <60 mL/min/1.73m2 for >3 months is consistent with chronic kidney disease. Refer to KDOQI guidelines for clinical interpretation. In patients with unstable renal function, e.g. those with acute kidney injury, the eGFR may not accurately reflect actual GFR. Performed By: #### FIBCT, PT, PTT, LD6, CMP, PHOS, URIC, CBCDIF #### [facility] [address] [place] [address] PHOSPHORUS Collected: 08/19/2018 Status: F Source: [place] 5:32 AM [facility] REPOSITORY TYPE CODE TESTS RESULT OUT OF REFERENCE UNITS RANGE LAB PHOS 2.7-4.8 mg/dL Phosphorus 3.0 Performed By: #### FIBCT, PT, PTT, LD6, CMP, PHOS, URIC, CBCDIF #### [facility] [address] [place], [place] [id number] URIC ACID Collected: 08/19/2018 Status: F Source: [place] 5:32 AM [facility] REPOSITORY TYPE CODE TESTS RESULT OUT OF RANGE REFERENCE UNITS LAB URIC Low 2.5-6.6 mg/dL Uric 1.8 Acid Performed By: #### FIBCT, PT, PTT, LD6, CMP, PHOS, URIC, CBCDIF #### [facility] [address] [place] [address] CBC AND DIFFERENTIAL Collected: 08/19/2018 Status: F Source: [place] 5:[address] [place] [address] REPOSITORY TYPE CODE TESTS RESULT OUT OF REFERENCE UNITS RANGE LAB WBC 3.70-11.00 k/uL WBC 7.23 LAB RBC Low 3.90-5.20 m/uL RBC 2.95 LAB HGB Low 11.5-15.5 g/dL Hemoglobin 9.2 LAB HCT Low 36.0-46.0 % Hematocrit 26.7 LAB MCV 80.0-100.0 fL MCV 90.5 LAB MCH 26.0-34.0 pG MCH 31.2 LAB MCHC 30.5-36.0 g/dL MCHC 34.5 LAB RDWCV High 11.5-15.0 % RDW-CV 17.6 LAB PLTCT Low 150-400 k/uL Platelet 23 Count Result Comment: Result checked and verified No clot detected. LAB MPV 9.0-12.7 fL MPV 10.2 LAB ANEUT % Neut% 2.0 LAB AANEUT Low 1.45-7.50 k/uL Abs Neut 0.14 LAB ALYMP % Lymph% 35.0 LAB AALYMP 1.00-4.00 k/uL Abs Lymph 2.53 LAB AMONO % [place]% 4.0 LAB AAMONO <0.87 k/uL Abs [place] 0.29 LAB AEOS % Eosin% 0.0 LAB AAEOS <0.46 k/uL Abs Eosin 0.00 LAB ABASO % Baso% 0.0 LAB AABASO <0.11 k/uL Abs Baso 0.00 LAB ABIMMG k/uL ANC(includeSEG+BAND 0.14 ) LAB ABLAST High 0 % Blast% 59.0 LAB ANIIMI Anisocytosis Present LAB OVAIMI Ovalocytes Few LAB POLIMI Polychromasia Slight LAB PLTEST Platelet Estimate Platelet estimate decreased LAB DTYP DTYPE Manual Diff Performed By: #### FIBCT, PT, PTT, LD6, CMP, PHOS, URIC, CBCDIF #### [facility] [address] [place] [address] NURSING PROG Observed: 08/18/2018 Status: COMPLETED Source: [place] 5:28 PM [facility] REPOSITORY HNO ID: [id number]: Aggie (Rn) Julius, RNService: (none)Author Type: Registered NurseType: Nursing Progress NoteFiled: 08/18/2018 5:32 PMNote Text: Nursing Progress NotePatient Name: Tari BlackMRN: [id number] Location: [place] [id number] Jsizo Note:0916: Pt resting in bed on assessment. VSS. Afebrile. Complaint of slightheadache, declined pain meds. Pt stated no rectal pain. Denied nausea,SOB, dizziness.1352: 1 unit of RBC's up and transfusing. VSS. Owhavxea3951: RBC's completed. VSS. Afebrile.1730: Angel removed, pt tolerated wellThis note was completed by: Aggie Madrid, RN NUTRITION Observed: 08/18/2018 Status: COMPLETED Source: [place] 4:46 PM [facility] REPOSITORY HNO ID: [id number]: Mechelle Ho) EscuroService: Nutrition TherapyAuthor Type: Registered DietitianType: NutritionFiled: 08/18/2018 4:49 PMNote Text:NUTRITION THERAPY PROGRESS NOTESERVICE DATE: 08/18/2018SERVICE TIME: 1100RECOMMENDED DIAGNOSIS: NO MALNUTRITION IDENTIFIED per Registered Dietitianon 08/15NUTRITION CARE PLANIntervention:Continue Regular dietContinue oral supplements : Boost Glucose Control and Ensure EnlivesupplementsMonitor oral intakesMonitor and Evaluation:Goal: Meet >75% of estimated needsMonitor fluid/electrolyte balanceMonitor labs, I/Os, vital signs, weightDischarge Nutrition Recommendations:Diet: RegularSupplements: patient's preferenceInterval History:possible d/c tomorrowNutritional Intake: Nutritional Intake Prior to Admission:>75% estimated energy needs over the past 4 day(s)Current Diet Order DIET REGULARPeripheral 08/17/18 0920 Assessment Left Forearm 22 Gauge (Active) Indwelling Urinary Catheter 08/15/18 1600 Angel 16 Fr (Active)Height: 167.5 cm (5' 5.95) (verified by Piper RN)Admission Weight: 97.1 kg (214 lb 1.1 oz) (verified by Piper RN)Current Weight: 101.7 kg (224 lb 4.8 oz)Body mass index is 36.26 kg/m?. class 2 obesityRecent Labs GLUC 162*BUN 10CREAT 0.74NA 134*K 4.1CHLOR 101CO2 24ALB 3.2*P 2.4*HB 7.9*HCT 23.0*WBC 7.25ALLERGIESNo Known AllergiesCurrent Facility-Administered Medications:bacitracin-polymyxin B 500-10,000 unit/gram (POLYSPORIN) TOPICAL TIDpolyethylene glycol 3350 17 g packet (MIRALAX, GLYCOLAX) 17 g ORAL DAILYPRNmelatonin 3 mg tab(s) 3 mg ORAL AT BEDTIMElidocaine 2 % (XYLOCAINE) MUCOUS MEMBRANE TID PRNdocusate sodium 100 mg cap(s) (COLACE) 100 mg ORAL BIDsenna 8.6 mg tab(s) (SENOKOT) 8.6 mg ORAL BIDpiperacillin-tazobactam 3.375 g in dextrose (iso-osmotic) 50 mL (ZOSYN)3.375 g INTRAVENOUS q 6 HoxyCODONE IR 5-10 mg tab(s) (ROXICODONE) 5-10 mg ORAL q 4 H PRNiv contrast (radiology procedure) INTRAVENOUS DIRECTED PRNallopurinol 300 mg tab(s) (ZYLOPRIM) 300 mg ORAL DAILYacyclovir 400 mg tab(s) (ZOVIRAX) 400 mg ORAL BIDpotassium chloride iv piggyback 20 mEq/100 mL 20 mEq INTRAVENOUS PRNOrpotassium chloride ER 40-60 mEq tab(s) (K-DUR, KLOR-CON) 40-60 mEq ORALDAILY PRNmagnesium sulfate in sterile water 4 g iv piggyback 4 g INTRAVENOUS PRNsalt and soda 10 mL oral liquid 10 mL ORAL QIDnystatin 5 mL CUP (MYCOSTATIN) 5 mL ORAL BQVgbhydjpxnsEPRMK-mznvbo-rsockkvwr 10 mL oral liquid (BMX 1:1:1) 10 mL ORALq 4 H PRN0.9% NaCl 3-5 mL 3-5 mL INTRAVENOUS q 12 Hacetaminophen 650 mg tab(s) (TYLENOL) 650 mg ORAL q 4 H PRNdiphenhydrAMINE 25 mg (BENADRYL) 25 mg ORAL q 6 H PRNNaCl 0.9% iv infusion 100 mL/hr INTRAVENOUS CONTINUOUSondansetron (PF) 8 mg injection (ZOFRAN) 8 mg INTRAVENOUS q 8 H PRNlactulose 20 g CUP (DUPHALAC, CONSTULOSE) 20 g ORAL BIDDate 08/17/18 1500 - 08/18/18 0659 08/18/18 0700 - 08/19/18 0659Shift 9649-1285 7646-0806 24 Hour Total 5233-2904 9759-8145 4389-9794 24Hour TotalINTAKE PO 480 1125 1125 PO 480 885 885 Supplements (mL) 240 240 IV 950 1040 2340 50 50 NS 0.9% 664 530 0077 Zosyn IV 50 50 150 50 50 Blood Products 301 301 PRBC Intake (mL) 300 300 Packed Red Blood Cells Number of Units 1 1 Shift Total 950 1040 2820 1476 1476OUTPUT Urine 800 1800 2950 2375 2375 Void (ml) 1150 1150 Tube Output ( Indwelling Urinary Catheter 08/15/18 1600 Angel 16Fr) 668 973 5351 2375 2375 # of BMs Number of BMs 1 x 1 x Shift Total 800 1800 2950 2375 2375Weight (kg) 100.7 100.7 100.7 101.7 101.7 101.7 101.7Vitamin and Mineral Labs in the past year:No results for input(s):CHROMIUM, COPPER, MANGANESE, SELENIUM, VITAMINA, VITB1, VITB2, VITB6, B12,METHYLMAL, VITD25, VITAMINE, VITAK, ZINC, TIBC, FE, KAL in the last 8784hours.MNT Billing Type: Re-assess/15 min 3 unitsSIGNATURE: Mechelle Paredes, MS RD LD [facility] PATIENT NAME: Tari BlackDATE: August 18, 2018 : 4:47 PM PAGER: [phone] SOCIAL WORK Observed: 08/18/2018 Status: COMPLETED Source: [place] 1:28 PM [facility] REPOSITORY HNO ID: [id number]: Ruba Daleervice: Social WorkAuthor Type: Social WorkerType: Social WorkFiled: 08/18/2018 1:30 PMNote Text:SOCIAL WORK FOLLOW UP NOTE:CANCER CENTERDate of service: 08/18/2018Tari Black is being seen for a follow up social work visit.Today's visit includes: patient and numerous family members.TOPICS ADDRESSED: Coping/support. SW completed follow up and patientindicated that she may discharge on following day and [facility] No other questions or concerns at this time.PLAN: Continue follow up as needed and Provide emotional support topatient/familyF/U APPOINTMENT: YESENIA Long PROGRESS Observed: 08/18/2018 Status: COMPLETED Source: [place] 8:21 AM [facility] REPOSITORY HNO ID: [id number]: Isabella Navarrete) MohrService: Hematology/OncologyAuthor Type: Nurse PractitionerType: Progress NotesFiled: 08/18/2018 4:32 PMNote Text:ONCOLOGY LEUKEMIA PROGRESS NOTESERVICE DATE: 08/18/2018SERVICE TIME: 8:21 AMSubjectiveINTERIM HISTORY- Feeling well, rectal pain improving- Tentatively planning for discharge tomorrow, leaning towards receivingtreatment in [place].REVIEW OF SYSTEMSGENERAL: No fever or chills.HEENT: No headache, nose bleed, mouth pain or sore throat.RESPIRATORY: No cough or shortness of breath.CARDIOVASCULAR: No chest pain, palpitations or leg swelling.GI: Eating, drinking and taking pills adequately; no difficultyswallowing, N/V/D/C.MUSCULOSKELTAL: No pain.SKIN: No rash or itching.VENOUS ACCESS: Peripheral. No concerns.ObjectivePHYSICAL EXAMVITALS: Temp (24hrs), Av.1 ?C (98.8 ?F), Min:36.5 ?C (97.7 ?F),Max:37.3 ?C (99.2 ?F) BP 130/65 Pulse 78 Temp 36.5 ?C (97.7 ?F) (Oral) Resp 18 Ht167.5 cm (5' 5.95) Wt 101.7 kg (224 lb 4.8 oz) SpO2 96% BMI36.26 kg/m?INTAKE AND OUTPUTIntake/Output Summary (Last 24 hours) at 08/18/18 0821Last data filed at 08/18/18 0810 Gross per 24 hourIntake 2820 mlOutput 3350 mlNet -530 mlGeneral: Alert, NADHEENT: Anicteric sclera. No oral lesions or erythema.Heart/CV: RRR, No murmurs/rubs/gallops.Lungs/Resp/Chest: ?Lungs CTAB, no wheezing, rhonchi, or crackles.Abd: ?Soft, non tender, non distended. Bowel sounds present.Extremities: no LE edema, no cyanosis.Skin: No rashes appreciated.Neuro/Psych: ?Follows commands appropriately. Affect appropriate forsetting and situation.Line Site: PIV site without erythema, tenderness or drainage.MEDICATIONSCurrent hospital medications:bacitracin-polymyxin B 500-10,000 unit/gram (POLYSPORIN) TOPICAL TIDpolyethylene glycol 3350 17 g packet (MIRALAX, GLYCOLAX) 17 g ORAL DAILYPRNmelatonin 3 mg tab(s) 3 mg ORAL AT BEDTIMElidocaine 2 % (XYLOCAINE) MUCOUS MEMBRANE TID PRNdocusate sodium 100 mg cap(s) (COLACE) 100 mg ORAL BIDsenna 8.6 mg tab(s) (SENOKOT) 8.6 mg ORAL BIDpiperacillin-tazobactam 3.375 g in dextrose (iso-osmotic) 50 mL (ZOSYN)3.375 g INTRAVENOUS q 6 HoxyCODONE IR 5-10 mg tab(s) (ROXICODONE) 5-10 mg ORAL q 4 H PRNiv contrast (radiology procedure) INTRAVENOUS DIRECTED PRNallopurinol 300 mg tab(s) (ZYLOPRIM) 300 mg ORAL DAILYacyclovir 400 mg tab(s) (ZOVIRAX) 400 mg ORAL BIDpotassium chloride iv piggyback 20 mEq/100 mL 20 mEq INTRAVENOUS PRNpotassium chloride ER 40-60 mEq tab(s) (K-DUR, KLOR-CON) 40-60 mEq ORALDAILY PRNmagnesium sulfate in sterile water 4 g iv piggyback 4 g INTRAVENOUS PRNsalt and soda 10 mL oral liquid 10 mL ORAL QIDnystatin 5 mL CUP (MYCOSTATIN) 5 mL ORAL BSGwadvvbapngVLUTO-vuebji-axhdfzqlz 10 mL oral liquid (BMX 1:1:1) 10 mL ORALq 4 H PRN0.9% NaCl 3-5 mL 3-5 mL INTRAVENOUS q 12 Hacetaminophen 650 mg tab(s) (TYLENOL) 650 mg ORAL q 4 H PRNdiphenhydrAMINE 25 mg (BENADRYL) 25 mg ORAL q 6 H PRNNaCl 0.9% iv infusion 100 mL/hr INTRAVENOUS CONTINUOUSondansetron (PF) 8 mg injection (ZOFRAN) 8 mg INTRAVENOUS q 8 H PRNlactulose 20 g CUP (DUPHALAC, CONSTULOSE) 20 g ORAL BIDLABORATORY DATARecent Labs 08/17/1805WBC 7.25 8.47 7.27RBC 2.51* 2.62* 2.53*HB 7.9* 8.4* 7.9*HCT 23.0* 24.2* 23.2*PLT 22* 23* 23*MCV 91.6 92.4 91.7MCH 31.5 32.1 31.2MCHC 34.3 34.7 34.1RDWCV 17.4* 17.5* 18.9*MPV 11.2 11.6 11.2NEUTP 1.8 3.5 7.0ABSNEUT 0.13* 0.30* 0.51*ABLAST 71.4* 63.2* 68.7*LYMPHP 26.8 33.3 24.3MONOP 0.0 0.0 0.0EODINP 0.0 0.0 0.0BASOP 0.0 0.0 0.0ABSMONO 0.00 0.00 0.00ABSEOSIN 0.00 0.00 0.00ABSBASO 0.00 0.00 0.00Recent Labs 08/17/1805NA 134* 134* 137K 4.1 4.4 4.2CHLOR 101 99 101CO2 24 24 25CREAT 0.74 0.81 0.73BUN 10 15 12GLUC 162* 132* 124*P 2.4* 3.0 2.7TPROT 6.1* 6.3 6.6ALB 3.2* 3.4* 3.6*CA 9.5 9.6 10.0ALKPHOS 63 62 64TBILI 1.1 1.5* 1.4*AST 20 22 14ALT 18 15 11URICACID 1.8* 2.6 3.4PTSEC 10.9 11.2 10.7INR 1.0 1.1 1.0APTT 26.2 25.9 25.4CULTURESIMAGINGPROCEDURESDATA:Diagnostic tests reviewed for today's visit:Most recent labs and imaging results.Assessment/PlanActive Hospital Problems Diagnosis Date Noted- 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/2018 Priority: A Overview Note: Tari Black is a 73 year old female with PMH of HTN and arthritis beingadmitted due to concern for acute leukemia after going to her PCP forupset stomach, headaches, and fatigue (CBC showing pancytopenia).- 68% peripheral blasts on CBC, 08/16.- 08/15 peripheral flow: AML- CXR No acute findings, EKG NSR- mIVF, allopurinol, TLS labs daily- BMBx 08/15 -->path in process.- Discussion of treatment options today, 08/17 --> Vidaza vs induction vstrial. Pt AND family contemplating, but leaning towards Vidaza locally.Appointment scheduled for 08/[address] [place] [address] 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- No visible signs of hemorrhoids, fissure or abnormality- CORS consulted, appreciate assistance.- CT A/P: no e/o perianal abscess.- Start sitz baths PRN- Continue PRN Oxy IR- Continue topical Lidocaine PRN- Continue bowel regimen-->improving, 08/18.- HTN (hypertension) 08/14/2018 Priority: F Overview Note: - Hold home Lisinopril w/ soft BPs, c/o intermittent dizziness- Electrolyte imbalance risk Priority: F Overview Note: - Replete K, Mg per protocol- Reg diet- continue mIVF NS @ 100cc/hr- Urinary retention Priority: H Overview Note: Urinary retention noted on 08/15, possibly r/t constipation vs rectalpain- Strict I AND O' s- Continue bowel regimen-Discontinue angel catheter.- Constipation 08/17/2018 Priority: I Overview Note: -likely exacerbated by opioid use-last BM 08/13-Senna BID, Colace BID, Miralax daily-continue Lactulose PRN- Hospital discharge follow-up Overview Note: - Pending diagnosis, treatment plan- Following Dr Hoang- PT/OT: eval AND treat- Appointment scheduled in [place] with Dr. Knapp for 08/20.Medication and Non-Pharmacologic VTE Prophylaxis/Ixfywuhjaqvoxq54/27/18 1515 vte pharmacologic prophylaxis contraindicated (fl,oh)08/14/18 1515 vte non-pharmacologic prophylaxis contraindicated (fl,oh)08/14/18 151 activity - mobilize patient (mi,oh)VTE Prophylaxis: Contraindicated due to thrombocytopenia.SIGNATURE: Isabella Govea APRN.CNP PATIENT NAME: Tari SanchezTE: August 18, 2018 : 8:21 AM PAGER/CONTACT #: [phone]/MEDICAL ONCOLOGY STAFF:TEACHING PHYSICIAN NOTE OF PERSONAL INVOLVEMENT IN CAREI have reviewed the progress note obtained and documented by the MARISSA and Ipersonally participated in the murphy components. I have discussed the caseand management of the patient's care with the MARISSA. The following commentsrevise or confirm relevant murphy components of the MARISSA.IMPRESSION/PLAN:Await BM Bx/asp results. Periphery with 70% blasts.Txf pRBC for anemia.Afebrile on zosyn.Signed: Moe Marieager Number: [id number] and Time of Service: Date: 14-52-76Xnksjdvmfybnq by responsible provider. APTT Collected: 08/18/2018 Status: F Source: [place] 2:14 AM [facility] REPOSITORY TYPE CODE TESTS RESULT OUT OF RANGE REFERENCE UNITS LAB APTT 23.0-32.4 sec APTT 26.2 Result Comment: Unfractionated Heparin Therapeutic Ranges: Standard Heparin Nomogram: 53 to 78 seconds (anti-Xa level of 0.3 to 0.7 U/ml) Low Dose/ACS Nomogram: 49 to 67 seconds (anti-Xa level of 0.2 to 0.5 U/ml) Stroke Treatment Nomogram: 49 to 67 seconds (anti-Xa level of 0.2 to 0.5 U/ml) Note: The APTT therapeutic range has been determined for the current lot of laboratory APTT reagent in use throughout the [facility]. Sample checked for a clot. Performed By: #### PTT, FIBCT, PT, LD6, CMP, PHOS, URIC, CBCDIF #### [facility] [address] [place], [place] [address] FIBRINOGEN Collected: 08/18/2018 Status: F Source: [place] 2:14 AM [facility] REPOSITORY TYPE CODE TESTS RESULT OUT OF REFERENCE UNITS RANGE LAB FIBCT High 200-400 mg/dL Fibrinogen 462 Result Comment: Result rechecked. Sample checked for a clot. Performed By: #### PTT, FIBCT, PT, LD6, CMP, PHOS, URIC, CBCDIF #### [facility] [employer] [facility] [address] [place], [place] [address] PROTIME Collected: 08/18/2018 Status: F Source: [place] 2:14 AM [facility] REPOSITORY TYPE CODE TESTS RESULT OUT OF RANGE REFERENCE UNITS LAB PSEC 9.7-13.0 sec PT 10.9 Sec Result Comment: Sample checked for a clot. LAB INR 0.9-1.3 PT INR 1.0 Result Comment: Vitamin K Antagonist (VKA) Therapeutic Range: INR 2 to 3 (Target INR of 2.5) Note: For patients treated with VKA drugs, such as warfarin, the [place] [employer] 2012 Guideline recommends a therapeutic INR range of 2 to 3 (target INR of 2.5). This recommendation includes high-risk patients with antiphospholipid syndrome with previous arterial or venous thromboembolism, current-generation mechanical or bioprosthetic aortic heart valve replacement. Note: Patients with mechanical aortic valve replacement and additional risk factors for thromboembolic events (atrial fibrillation, previous thromboembolism, LV dysfunction, hypercoagulable conditions) or an older generation mechanical AVR (i.e., ball in-Cage) or any mechanical MVR should have a INR therapeutic range of 2.5 to 3.5 (target INR of 3). Jhon GH, et al. Chest 2012, 141:7S-47S Diallo RA, et al. [facility] 2017, 70: 252-289 Sample checked for a clot. Performed By: #### PTT, FIBCT, PT, LD6, CMP, PHOS, URIC, CBCDIF #### [facility] [address] [place], [place] [address] LD Collected: 08/18/2018 Status: F Source: [facility] 2:14 AM [facility] REPOSITORY TYPE CODE TESTS RESULT OUT OF RANGE REFERENCE UNITS LAB LD High 135-214 U/L LD 303 Performed By: #### PTT, FIBCT, PT, LD6, CMP, PHOS, URIC, CBCDIF #### [facility] [address] [place], [place] [address] COMP METABOLIC PANEL Collected: 08/18/2018 Status: F Source: [place] 2:14 AM [facility] REPOSITORY TYPE CODE TESTS RESULT OUT OF REFERENCE UNITS RANGE LAB TP Low 6.3-8.0 g/dL Protein, Total 6.1 LAB ALB Low 3.9-4.9 g/dL Albumin 3.2 LAB CA 8.5-10.2 mg/dL Calcium, Total 9.5 LAB TBIL 0.2-1.3 mg/dL Bilirubin, 1.1 Total LAB ALKP 34-123 U/L Alkaline 63 Phosphatase LAB AST 13-35 U/L AST 20 LAB GLU High 74-99 mg/dL Glucose 162 Result Comment: The [place] [employer] (ADA) provides guidance for cutoff values for fasting glucose and r andom glucose. The ADA defines fasting as no caloric intake for at least 8 hours. Fasting plasma glucose results between 100 to 125 mg/dL indicate increased risk for diabetes (prediabetes). Fasting plasma glucose results greater than or equal to 126 mg/dL meet the criteria for diagnosis of diabetes. In the absence of unequivocal hyperglycemia, results should be confirmed by repeat testing. In a patient with classic symptoms of hyperglycemia or hyperglycemic crisis, random plasma glucose results greater than or equal to 200 mg/dL meet the criteria for diagnosis of diabetes. Reference: Standards of Medical Care in Diabetes 2016, [place] [employer] Association. Diabetes Care. 2016.39(Suppl 1). LAB BUN 7-21 mg/dL BUN 10 LAB CRET 0.58-0.96 mg/dL Creatinine 0.74 LAB NA Low 136-144 mmol/L Sodium 134 LAB K 3.7-5.1 mmol/L Potassium 4.1 LAB CL 97-105 mmol/L Chloride 101 LAB CO2 22-30 mmol/L CO2 24 LAB AGAP 9-18 mmol/L Anion Gap 9 LAB ALT 7-38 U/L ALT 18 LAB GFRAA eGFR- Amer. >60 LAB GFRNAA . eGFR-All Other Races >60 Result Comment: eGFR (Estimated GFR) Units of measure: mL/min/1.73 meters squared eGFR is derived from the reexpressed MDRD Study equation using the following parameters: serum creatinine, age, gender and race. The creatinine assay has been calibrated to be traceable to IDKY. An eGFR <60 mL/min/1.73m2 for >3 months is consistent with chronic kidney disease. Refer to KDOQI guidelines for clinical interpretation. In patients with unstable renal function, e.g. those with acute kidney injury, the eGFR may not accurately reflect actual GFR. Performed By: #### PTT, FIBCT, PT, LD6, CMP, PHOS, URIC, CBCDIF #### [facility] [address] [place] [address] PHOSPHORUS Collected: 08/18/2018 Status: F Source: [place] 2:14 AM [facility] REPOSITORY TYPE CODE TESTS RESULT OUT OF REFERENCE UNITS RANGE LAB PHOS Low 2.7-4.8 mg/dL Phosphorus 2.4 Performed By: #### PTT, FIBCT, PT, LD6, CMP, PHOS, URIC, CBCDIF #### [place] [address] URIC ACID Collected: 08/18/2018 Status: F Source: [place] 2:14 AM [facility] REPOSITORY TYPE CODE TESTS RESULT OUT OF RANGE REFERENCE UNITS LAB URIC Low 2.5-6.6 mg/dL Uric 1.8 Acid Performed By: #### PTT, FIBCT, PT, LD6, CMP, PHOS, URIC, CBCDIF #### [place] [address] CBC AND DIFFERENTIAL Collected: 08/18/2018 Status: F Source: [place] 2:14 AM [facility] REPOSITORY TYPE CODE TESTS RESULT OUT OF REFERENCE UNITS RANGE LAB WBC 3.70-11.00 k/uL WBC 7.25 LAB RBC Low 3.90-5.20 m/uL RBC 2.51 LAB HGB Low 11.5-15.5 g/dL Hemoglobin 7.9 LAB HCT Low 36.0-46.0 % Hematocrit 23.0 LAB MCV 80.0-100.0 fL MCV 91.6 LAB MCH 26.0-34.0 pG MCH 31.5 LAB MCHC 30.5-36.0 g/dL MCHC 34.3 LAB RDWCV High 11.5-15.0 % RDW-CV 17.4 LAB PLTCT Low 150-400 k/uL Platelet 22 Count Result Comment: Result checked and verified No clot detected. LAB MPV 9.0-12.7 fL MPV 11.2 LAB ANEUT % Neut% 1.8 LAB AANEUT Low 1.45-7.50 k/uL Abs Neut 0.13 LAB ALYMP % Lymph% 26.8 LAB AALYMP 1.00-4.00 k/uL Abs Lymph 1.94 LAB AMONO % [place]% 0.0 LAB AAMONO <0.87 k/uL Abs [place] 0.00 LAB AEOS % Eosin% 0.0 LAB AAEOS <0.46 k/uL Abs Eosin 0.00 LAB ABASO % Baso% 0.0 LAB AABASO <0.11 k/uL Abs Baso 0.00 LAB NRBC High 0 /100 WBC NRBCs 1 LAB ABLAST High 0 % Blast% 71.4 LAB ANIIMI Anisocytosis Present LAB POLIMI Polychromasia Slight LAB PLTEST Platelet Estimate Platelet estimate decreased LAB DTYP DTYPE Manual Diff Performed By: #### PTT, FIBCT, PT, LD6, CMP, PHOS, URIC, CBCDIF #### [facility] [address] [place] [address] TYPE AND SCREEN Collected: 08/18/2018 Status: F Source: [place] 2:13 AM [facility] REPOSITORY TYPE CODE TESTS RESULT OUT OF REFERENCE UNITS RANGE LAB %ABR ABO/RH(D) O NEGATIVE LAB % Antibody NEG Screen Performed By: #### TSCR #### [facility] [address] [place] [address] NURSING PROG Observed: 08/17/2018 Status: COMPLETED Source: [place] 11:07 AM [facility] REPOSITORY HNO ID: [id number]: Melanie (Rn) LORNA Zamarripaervice: (none)Author Type: Registered NurseType: Nursing Progress NoteFiled: 08/17/2018 2:54 PMNote Text: Nursing Progress NotePatient Name: Tari BlackMRN: [id number] Location: [place] [id number] [place] Note:0745: Pt off the floor to radiology for CXR.0822: Pt resting in bed at this time. Assessment completed per flowsheet -pt c/o 4/10 rectal pain, 10mg of oxycodone administered. Pt also c/odizziness - VSS, Jeannie Villatoro NP aware. Pt accidentally pulled IV out inradiology - will place new IV for IVF. Will continue to monitor. POCreviewed - pt verbalized understanding. Will continue to monitor.0920: New 22G placed in L FA - NS infusing per JAN.1100: Small blood clot noted in angel catheter tubing, no other s/s activebleeding noted. Jeannie Villatoro NP notified. No new orders at this time.1205: Pt assisted with sitz bath and states relief. Keisha care/cathetercare completed. Will continue to monitor.This note was completed by: Melanie Zamarripa RN XR CHEST 2V FRONTAL/LAT Observed: 08/17/2018 Status: F Source: [place] 8:01 AM [facility] REPOSITORY * * *Final Report* * *DATE OF EXAM: Aug 17 2018 8:01AM SARAH [id number] - XR CHEST 2V FRONTAL/LAT / REASON: Fever of unknown origin * * * * Physician Interpretation * * * * EXAMINATION: CHEST RADIOGRAPH (2 VIEW FRONTAL and LATERAL)CLINICAL HISTORY: Fever of unknown origin,MQ: [id number]_5Comparison: 08/14/2018RESULT:Lines, tubes, and devices: None.Lungs and pleura: Apical regions are incompletely included. Evaluation for tiny pneumothoraces would be difficult. There has been development of tiny pleural effusions. Minimal atelectatic changes have developed at the bases. Superimposed minimal inflammatory changes cannot be excluded.Cardiomediastinal silhouette: Heart normal. Thoracic aorta is mildly tortuous.Other: .IMPRESSION:As aboveTranscriptionist: YOSEF Transcribe Date/Time: Aug 17 2018 1:12PDictated by : DINORAH MANCIA MDThis examination was interpreted and the report reviewed and electronically signed by: DINORAH MANCIA MD on Aug 17 2018 1:13PM [id number] Observed: 08/17/2018 Status: COMPLETED Source: [place] 7:10 AM [facility] REPOSITORY HNO ID: [id number]: Horace DohertyAmberrvice: Hematology/OncologyAuthor Type: PhysicianType: Progress NotesFiled: 08/18/2018 5:47 AMNote Text:ONCOLOGY LEUKEMIA PROGRESS NOTESERVICE DATE: 08/17/2018SERVICE TIME: 7:11 AMSubjectiveINTERIM HISTORYFebrile, Tmax 38 @2218, other VSSBCs in process, started on ZosynAwaiting BMBx resultsDiscussion w/ pt, family re: treatment optionsConstipation persists, continue bowel regimenREVIEW OF SYSTEMSGENERAL: ?+ fever, no chills. Intermittent dizziness.HEENT: + intermittent?headaches; No?nose bleed, mouth pain or sore throat.RESPIRATORY: No cough or shortness of breath.CARDIOVASCULAR: No chest pain, palpitations or leg swelling.GI: Eating, drinking and taking pills adequately; no difficultyswallowing, abdominal discomfort, blood in stools, black stools ordiarrhea; + rectal pain -improving.: No discomfort with voiding or gross blood in urine.MUSCULOSKELTAL: No pain.SKIN: No rash or itching.VENOUS?ACCESS: Peripheral. No concerns.ObjectivePHYSICAL EXAMVITALS: Temp (24hrs), Av.2 ?C (99 ?F), Min:36.6 ?C (97.9 ?F), Max:38?C (100.4 ?F) BP 127/84 Pulse 94 Temp 37.2 ?C (99 ?F) (Oral) Resp 18 Ht167.5 cm (5' 5.95) Wt 100.7 kg (222 lb 0.1 oz) SpO2 96% BMI35.89 kg/m?INTAKE AND OUTPUTIntake/Output Summary (Last 24 hours) at 08/17/18 1602Last data filed at 08/17/18 1400 Gross per 24 hourIntake 3070 mlOutput 675 mlNet 2395 mlGENERAL: ?No acute distress; alert and oriented x 3.HEENT: No mucositis.LUNGS: Clear to auscultation; no wheezing, rhonchi or rales.HEART: Regular rhythm; normal rate; no murmur.ABDOMEN: Bowel sounds present; soft, non-tender and not distended. Noexternal hemorrhoids or obvious abscess.EXTREMITIES: No edema.SKIN: No rash.VENOUS ACCESS: No erythema, tenderness or drainage.MEDICATIONSCurrent hospital medications:bacitracin-polymyxin B 500-10,000 unit/gram (POLYSPORIN) TOPICAL TIDlidocaine 2 % (XYLOCAINE) MUCOUS MEMBRANE TID PRNdocusate sodium 100 mg cap(s) (COLACE) 100 mg ORAL BIDsenna 8.6 mg tab(s) (SENOKOT) 8.6 mg ORAL BIDpiperacillin-tazobactam 3.375 g in dextrose (iso-osmotic) 50 mL (ZOSYN)3.375 g INTRAVENOUS q 6 HoxyCODONE IR 5-10 mg tab(s) (ROXICODONE) 5-10 mg ORAL q 4 H PRNiv contrast (radiology procedure) INTRAVENOUS DIRECTED PRNallopurinol 300 mg tab(s) (ZYLOPRIM) 300 mg ORAL DAILYacyclovir 400 mg tab(s) (ZOVIRAX) 400 mg ORAL BIDpotassium chloride iv piggyback 20 mEq/100 mL 20 mEq INTRAVENOUS PRNpotassium chloride ER 40-60 mEq tab(s) (K-DUR, KLOR-CON) 40-60 mEq ORALDAILY PRNmagnesium sulfate in sterile water 4 g iv piggyback 4 g INTRAVENOUS PRNsalt and soda 10 mL oral liquid 10 mL ORAL QIDnystatin 5 mL CUP (MYCOSTATIN) 5 mL ORAL QVPsfzppqlejwBCXGS-kzvngb-crtzjiotl 10 mL oral liquid (BMX 1:1:1) 10 mL ORALq 4 H PRN0.9% NaCl 3-5 mL 3-5 mL INTRAVENOUS q 12 Hacetaminophen 650 mg tab(s) (TYLENOL) 650 mg ORAL q 4 H PRNdiphenhydrAMINE 25 mg (BENADRYL) 25 mg ORAL q 6 H PRNNaCl 0.9% iv infusion 100 mL/hr INTRAVENOUS CONTINUOUSondansetron (PF) 8 mg injection (ZOFRAN) 8 mg INTRAVENOUS q 8 H PRNlactulose 20 g CUP (DUPHALAC, CONSTULOSE) 20 g ORAL BIDLABORATORY DATARecent Labs 08/16/1805WBC 8.47 7.27 7.23RBC 2.62* 2.53* 2.40*HB 8.4* 7.9* 7.5*HCT 24.2* 23.2* 22.0*PLT 23* 23* 22*MCV 92.4 91.7 91.7MCH 32.1 31.2 31.3MCHC 34.7 34.1 34.1RDWCV 17.5* 18.9* 18.6*MPV 11.6 11.2 10.8NEUTP 3.5 7.0 1.8ABSNEUT 0.30* 0.51* 0.13*ABLAST 63.2* 68.7* 68.4*LYMPHP 33.3 24.3 29.8MONOP 0.0 0.0 0.0EODINP 0.0 0.0 0.0BASOP 0.0 0.0 0.0ABSMONO 0.00 0.00 0.00ABSEOSIN 0.00 0.00 0.00ABSBASO 0.00 0.00 0.00Recent Labs 08/16/1805NA 134* 137 136K 4.4 4.2 4.1CHLOR 99 101 102CO2 24 25 22CREAT 0.81 0.73 0.78BUN 15 12 13GLUC 132* 124* 130*P 3.0 2.7 2.5*TPROT 6.3 6.6 6.6ALB 3.4* 3.6* 3.5*CA 9.6 10.0 9.6ALKPHOS 62 64 62TBILI 1.5* 1.4* 1.4*AST 22 14 16ALT 15 11 12URICACID 2.6 3.4 3.4PTSEC 11.2 10.7 10.9INR 1.1 1.0 1.0APTT 25.9 25.4 24.0DATA:Diagnostic tests reviewed for today's visit:Most recent labs and imaging results.Assessment/PlanActive Hospital Problems Diagnosis Date Noted- 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/2018 Priority: A Overview Note: Tari Black is a 73 year old female with PMH of HTN and arthritis beingadmitted due to concern for acute leukemia after going to her PCP forupset stomach, headaches, and fatigue (CBC showing pancytopenia).- 68% peripheral blasts on CBC, 08/16.- 08/15 peripheral flow: AML- CXR No acute findings, EKG NSR- mIVF, allopurinol, TLS labs daily- BMBx 08/15 -->path in process.- Discussion of treatment options today, 08/17 --> Vidaza vs induction vstrial. Pt AND family contemplating.- Line placement, echo -->pending treatment decision.- Pancytopenia (HCC) 08/14/2018 Priority: B Overview Note: Secondary to acute leukemia- Transfuse LR + IR blood products for Hgb <8; Plt <10 or active bleeding- No transfusion needs today, 08/17.- Headache Priority: B Overview Note: - CT brain 08/14- Negative for acute findings- PRN oxy- Nausea Priority: C Overview Note: ?secondary to acute leukemia- Zofran PRN available- Immunodeficiency (HCC) 08/14/2018 Priority: D Overview Note: secondary to acute leukemia- ppx acyclovir- Rectal pain Priority: E Overview Note: Pt reports 3-day 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- No visible signs of hemorrhoids, fissure or abnormality- CORS consulted, appreciate assistance.- CT A/P: no e/o perianal abscess.- Start sitz baths PRN- Continue PRN Oxy IR- Continue topical Lidocaine PRN- Continue bowel regimen-->improving, 08/17.- HTN (hypertension) 08/14/2018 Priority: F Overview Note: - Hold home Lisinopril w/ soft BPs, c/o intermittent dizziness- Electrolyte imbalance risk Priority: F Overview Note: - Replete K, Mg per protocol- Reg diet- continue mIVF NS @ 100cc/hr- Urinary retention Priority: H Overview Note: Urinary retention noted on 08/15, possibly r/t constipation vs rectalpain- Continue angel xgd- Strict I AND O' s- Continue bowel regimen- Constipation 08/17/2018 Priority: I Overview Note: -likely exacerbated by opioid use-last BM 08/13-Senna BID, Colace BID, Miralax daily-continue Lactulose PRN- Hospital discharge follow-up Overview Note: - Pending diagnosis, treatment plan- Following Dr Hoang- PT/OT: eval AND treatMedication and Non-Pharmacologic VTE Prophylaxis/Ckoxiuriidslar62/27/181514 vte pharmacologic prophylaxis contraindicated (fl,oh)08/14/18 151 vte non-pharmacologic prophylaxis contraindicated (fl,oh)08/14/18 151 activity - mobilize patient (fl,oh)VTE Prophylaxis: Contraindicated severe thrombocytopeniaSIGNATURE: Sandy Villatoro APRN.MARINE SURVEYOR PATIENT NAME: Tari Washington: August 17, 2018 : 7:10 AM PAGER/CONTACT #: [phone]/MEDICAL ONCOLOGY STAFF:TEACHING PHYSICIAN NOTE OF PERSONAL INVOLVEMENT IN CARE?I have reviewed the progress note obtained and documented by the licensedindependent practitioner and I personally participated in the keycomponents. I have discussed the case and management of the patient's carewith the licensed independent practitioner. The following comments reviseor confirm relevant murphy components of the licensed independentpractitioner's note.?IMPRESSION/PLAN: AML by flow cytometry. Awaiting thre final results ofBMBx. The [facility] conducts standard qualityassurance validation for all diagnosed patients new to the cancerinstitute and this will also be performed during this admission.?Discussed therapeutic options including 7+3 (with or without HCT),hypomethylating agents versus clinical trial ([employer] study). For clinicaltrial eligibility, BMBx results required Rectal pain, CT negative, rectalsurgery following. She is immunocompromised and will need transfusionsupport.?Horace Hoang MD PhD MPHAssociate StaffHematologic Oncology and Blood DisordersPager [phone] of service: 08/17/2018 FIBRINOGEN Collected: 08/17/2018 Status: F Source: [place] 5:02 AM [facility] REPOSITORY TYPE CODE TESTS RESULT OUT OF REFERENCE UNITS RANGE LAB FIBCT High 200-400 mg/dL Fibrinogen 434 Performed By: #### FIBCT, PT, PTT, LD6, CMP, PHOS, URIC, CBCDIF #### [facility] [address] [place], [place] [address] PROTIME Collected: 08/17/2018 Status: F Source: [place] 5:02 AM [facility] REPOSITORY TYPE CODE TESTS RESULT OUT OF RANGE REFERENCE UNITS LAB PSEC 9.7-13.0 sec PT 11.2 Sec LAB INR 0.9-1.3 PT 1.1 INR Result Comment: Vitamin K Antagonist (VKA) Therapeutic Range: INR 2 to 3 (Target INR of 2.5) Note: For patients treated with VKA drugs, such as warfarin, the [place] [employer] 2012 Guideline recommends a therapeutic INR range of 2 to 3 (target INR of 2.5). This recommendation includes high-risk patients with antiphospholipid syndrome with previous arterial or venous thromboembolism, current-generation mechanical or bioprosthetic aortic heart valve replacement. Note: Patients with mechanical aortic valve replacement and additional risk factors for thromboembolic events (atrial fibrillation, previous thromboembolism, LV dysfunction, hypercoagulable conditions) or an older generation mechanical AVR (i.e., ball in-Cage) or any mechanical MVR should have a INR therapeutic range of 2.5 to 3.5 (target INR of 3). Magdalenott GH, et al. Chest 2012, 141:7S-47S Diallo RA, et al. [facility] 2017, 70: 252-289 Performed By: #### FIBCT, PT, PTT, LD6, CMP, PHOS, URIC, CBCDIF #### [facility] [address], [place] [address] APTT Collected: 08/17/2018 Status: F Source: [place] 5:02 [facility] REPOSITORY TYPE CODE TESTS RESULT OUT OF RANGE REFERENCE UNITS LAB APTT 23.0-32.4 sec APTT 25.9 Result Comment: Unfractionated Heparin Therapeutic Ranges: Standard Heparin Nomogram: 53 to 78 seconds (anti-Xa level of 0.3 to 0.7 U/ml) Low Dose/ACS Nomogram: 49 to 67 seconds (anti-Xa level of 0.2 to 0.5 U/ml) Stroke Treatment Nomogram: 49 to 67 seconds (anti-Xa level of 0.2 to 0.5 U/ml) Note: The APTT therapeutic range has been determined for the current lot of laboratory APTT reagent in use throughout the [facility]. Performed By: #### FIBCT, PT, PTT, LD6, CMP, PHOS, URIC, CBCDIF #### [facility] [address] [place], [place] [address] LD Collected: 08/17/2018 Status: F Source: [facility] 5:02 AM [facility] REPOSITORY TYPE CODE TESTS RESULT OUT OF RANGE REFERENCE UNITS LAB LD High 135-214 U/L LD 293 Performed By: #### FIBCT, PT, PTT, LD6, CMP, PHOS, URIC, CBCDIF #### [facility] [address] [place], [place] [address] COMP METABOLIC PANEL Collected: 08/17/2018 Status: F Source: [place] 5:02 AM [facility] REPOSITORY TYPE CODE TESTS RESULT OUT OF REFERENCE UNITS RANGE LAB TP 6.3-8.0 g/dL Protein, Total 6.3 LAB ALB Low 3.9-4.9 g/dL Albumin 3.4 LAB CA 8.5-10.2 mg/dL Calcium, Total 9.6 LAB TBIL High 0.2-1.3 mg/dL Bilirubin, 1.5 Total LAB ALKP 34-123 U/L Alkaline 62 Phosphatase LAB AST 13-35 U/L AST 22 LAB GLU High 74-99 mg/dL Glucose 132 Result Comment: The [place] Diabetes Association (ADA) provides guidance for cutoff values for fasting glucose and r andom glucose. The ADA defines fasting as no caloric intake for at least 8 hours. Fasting plasma glucose results between 100 to 125 mg/dL indicate increased risk for diabetes (prediabetes). Fasting plasma glucose results greater than or equal to 126 mg/dL meet the criteria for diagnosis of diabetes. In the absence of unequivocal hyperglycemia, results should be confirmed by repeat testing. In a patient with classic symptoms of hyperglycemia or hyperglycemic crisis, random plasma glucose results greater than or equal to 200 mg/dL meet the criteria for diagnosis of diabetes. Reference: Standards of Medical Care in Diabetes 2016, [place] [employer] Association. Diabetes Care. 2016.39(Suppl 1). LAB BUN 7-21 mg/dL BUN 15 LAB CRET 0.58-0.96 mg/dL Creatinine 0.81 LAB NA Low 136-144 mmol/L Sodium 134 LAB K 3.7-5.1 mmol/L Potassium 4.4 LAB CL 97-105 mmol/L Chloride 99 LAB CO2 22-30 mmol/L CO2 24 LAB AGAP 9-18 mmol/L Anion Gap 11 LAB ALT 7-38 U/L ALT 15 LAB GFRAA eGFR- Amer. >60 LAB GFRNAA . eGFR-All Other Races >60 Result Comment: eGFR (Estimated GFR) Units of measure: mL/min/1.73 meters squared eGFR is derived from the reexpressed MDRD Study equation using the following parameters: serum creatinine, age, gender and race. The creatinine assay has been calibrated to be traceable to IDMS. An eGFR <60 mL/min/1.73m2 for >3 months is consistent with chronic kidney disease. Refer to KDOQI guidelines for clinical interpretation. In patients with unstable renal function, e.g. those with acute kidney injury, the eGFR may not accurately reflect actual GFR. Performed By: #### FIBCT, PT, PTT, LD6, CMP, PHOS, URIC, CBCDIF #### [facility] [address] [place] [address] PHOSPHORUS Collected: 08/17/2018 Status: F Source: [place] 5:02 AM [facility] REPOSITORY TYPE CODE TESTS RESULT OUT OF REFERENCE UNITS RANGE LAB PHOS 2.7-4.8 mg/dL Phosphorus 3.0 Performed By: #### FIBCT, PT, PTT, LD6, CMP, PHOS, URIC, CBCDIF #### [facility] [address] [place] [address] URIC ACID Collected: 08/17/2018 Status: F Source: [place] 5:02 AM [facility] REPOSITORY TYPE CODE TESTS RESULT OUT OF RANGE REFERENCE UNITS LAB URIC 2.5-6.6 mg/dL Uric 2.6 Acid Performed By: #### FIBCT, PT, PTT, LD6, CMP, PHOS, URIC, CBCDIF #### [facility] [address] [place], [place] [address] CBC AND DIFFERENTIAL Collected: 08/17/2018 Status: F Source: [place] 5:02 AM [facility] REPOSITORY TYPE CODE TESTS RESULT OUT OF REFERENCE UNITS RANGE LAB WBC 3.70-11.00 k/uL WBC 8.47 LAB RBC Low 3.90-5.20 m/uL RBC 2.62 LAB HGB Low 11.5-15.5 g/dL Hemoglobin 8.4 LAB HCT Low 36.0-46.0 % Hematocrit 24.2 LAB MCV 80.0-100.0 fL MCV 92.4 LAB MCH 26.0-34.0 pG MCH 32.1 LAB MCHC 30.5-36.0 g/dL MCHC 34.7 LAB RDWCV High 11.5-15.0 % RDW-CV 17.5 LAB PLTCT Low 150-400 k/uL Platelet 23 Count Result Comment: Result checked and verified No clot detected. LAB MPV 9.0-12.7 fL MPV 11.6 LAB ANEUT % Neut% 3.5 LAB AANEUT Low 1.45-7.50 k/uL Abs Neut 0.30 LAB ALYMP % Lymph% 33.3 LAB AALYMP 1.00-4.00 k/uL Abs Lymph 2.82 LAB AMONO % [place]% 0.0 LAB AAMONO <0.87 k/uL Abs [place] 0.00 LAB AEOS % Eosin% 0.0 LAB AAEOS <0.46 k/uL Abs Eosin 0.00 LAB ABASO % Baso% 0.0 LAB AABASO <0.11 k/uL Abs Baso 0.00 LAB ABLAST High 0 % Blast% 63.2 LAB ANIIMI Anisocytosis Present LAB OVAIMI Ovalocytes Few LAB POLIMI Polychromasia Slight LAB PLTEST Platelet Estimate Platelet estimate decreased LAB DTYP DTYPE Manual Diff Performed By: #### FIBCT, PT, PTT, LD6, CMP, PHOS, URIC, CBCDIF #### [facility] [address] [place], [place] [address] UA W/CULT IF INDICATED Collected: 08/17/2018 Status: F Source: [place] 4:52 AM [facility] REPOSITORY TYPE CODE TESTS RESULT OUT OF RANGE REFERENCE UNITS LAB UCOL Yellow Color Yellow LAB UCLA Clear Clarity Clear LAB UGLUC Negative mg/dL Glucose, Urine Negative LAB UBIL Negative Bilirubin, Urine Negative LAB UKET Negative Ketones, Urine Negative LAB USPG 1.005-1.030 Specific 1.012 [place], Ur LAB UHGB Abnormal Negative 1+ Alert Hemoglobin/Blood, Ur LAB UPH 4.5-8.0 pH 6.0 LAB UPROT Negative mg/dL Protein, Urine Negative LAB UUROB Normal Urobilinogen Normal LAB UNITR Negative Nitrites Negative LAB ULKEST Negative Leukest Negative LAB UCOM Comments SEE COMMENT Result Comment: Microscopic Examination Performed LAB UMCOM Urine Bradford SEE COMMENT Comment Result Comment: N/A LAB UWBC 0-5 /HPF WBC 0-5 LAB URBC Abnormal Alert 0-3 /HPF RBC 3-5 Performed By: #### UACII #### [facility] [address] [place], [place] [id number] NURSING PROG Observed: 08/16/2018 Status: COMPLETED Source: [place] 11:13 PM [facility] REPOSITORY HNO ID: [id number]: Kristal (Rn) Mark, LORNAervice: (none)Author Type: Registered NurseType: Nursing Progress NoteFiled: 08/16/2018 11:14 PMNote Text: Nursing Progress NotePatient Name: Tari BlackMRN: [id number] Location: [place] [address]/Z809-12 Sjjum Note:2215: Pt febrile 100.4, all other VSS. Due for WINTERS, retail sales vitamin consultant notified.Tylenol given.2230: BC x2 drawn AND sent. Zosyn started. X-ray paged for chest x-ray.This note was completed by: Kristal Flores RN Observed: 08/16/2018 Status: F Source: [place] BLOOD CULTURE 10:43 PM [facility] REPOSITORY Culture Result - No growth 5 days Performed By: #### BLCUL ####[facility] [address] [place], [place] [phone] Observed: 08/16/2018 Status: F Source: [place] BLOOD CULTURE 10:43 PM [facility] REPOSITORY Culture Result - No growth 5 days Performed By: #### BLCUL ####[facility] [address] [place], [place] [phone] NURSING PROG Observed: 08/16/2018 Status: COMPLETED Source: [place] 12:27 PM [facility] REPOSITORY HNO ID: [id number]: Melanie Prieto) Marilou, RNService: (none)Author Type: Registered NurseType: Nursing Progress NoteFiled: 08/16/2018 12:32 PMNote Text: Nursing Progress NotePatient Name: Tari BlackMRN: [id number] Location: [place] [address]/J893-22 Nlfnt Note:0730: Pt resting in bed at this time. Assessment completed per flowsheet -pt c/o 8/10 rectal pain. 10mg of oxycodone administered per JAN. Pt deniesHA, SOB, dizziness, N/V, diarrhea. Pt states last BM was on Saturday -will admin scheduled lactulose. POC reviewed with pt - will transfuse 1uPRBCs today. Pt verbalized understanding. Will continue to monitor.0930: PRBC transfusion started. AM lisinopril held d/t c/o dizziness, BP104/52. Jeannie Villatoro NP notified.1205: 5mg of oxy administered for c/o 4/10 rectal pain.1217: PRBC transfusion complete. VSS, no s/s transfusion reaction.This note was completed by: Melanie Zamarripa, MADELAINE CONSULT PROG Observed: 08/16/2018 Status: COMPLETED Source: [place] 8:50 AM [facility] REPOSITORY HNO ID: [id number]: Cristian (Iglesia) BeckService: ColorectalAuthor Type: ResidentType: Consult Progress NoteFiled: 08/16/2018 9:09 AMNote Text:.GENERAL SURGERYPROGRESS NOTEService Date: August 16, 2018Patient Name: Tari BlackMRN: [id number] Day: 3OR DATE:* No surgery found No surgery found *Assessment and Plan: Tari Black is a 73 year old female, who was admittedon 08/14/2018 for Pancytopenia (HCC). CORS was consulted for rectal pain.NO CT evidence of perianal abscess or other acute process. Pt continues tohave rectal pain.Plan:- no surgical intervention at this point- will perform repeat rectal exam with staff today- management per primary teamWill discuss plan with Dr. Hilliard.Cristian Black MD, PhDGeneral Surgery, PGY-1Pager: [phone]; Date: 08/16/2018Time: 8:51 AMPatient Active Hospital Problem List: Pancytopenia (HCC) (08/14/2018) Headache () Nausea () Immunodeficiency (HCC) (08/14/2018) HTN (hypertension) (08/14/2018) Electrolyte imbalance risk () Anemia () Thrombocytopenia (HCC) () Rectal pain () Hospital discharge follow-up () Urinary retention ()Subjective:Interval Events: No acute events overnight. Pain: controlled. Continues tohave rectal pain.Physical Exam:BP 106/51 Pulse 90 Temp 37.3 ?C (99.1 ?F) (Oral) Resp 18 Ht167.5 cm (5' 5.95) Wt 96.9 kg (213 lb 9.6 oz) SpO2 93% BMI 34.53kg/m?GENERAL/NEURO: Awake, Alert, NADHEENT: Normocephalic, AtraumaticCHEST: Unlabored breathing on RA, hemodynamically stableABDOMEN: Soft, Non-tender, Non-DistendedEXTREMITIES: warm, well perfused, no jaundiceLabs:CBC, Coags, BMP, Mg, PhosRecent Labs 08/16/18005WBC 7.27 7.23 7.82HB 7.9* 7.5* 7.4*HCT 23.2* 22.0* 21.5*PLT 23* 22* 25*INR 1.0 1.0 1.0APTT 25.4 24.0 23.8NA 137 136 136K 4.2 4.1 4.3CHLOR 101 102 102CO2 25 22 24BUN 12 13 14CREAT 0.73 0.78 0.73GLUC 124* 130* 106*CA 10.0 9.6 9.6P 2.7 2.5* 2.3*Liver Function, Amylase, AND LipaseRecent Labs 508 08/15/18125TPROT 6.6 6.6 6.8ALB 3.6* 3.5* 3.9ALT 11 12 13AST 14 16 15ALKPHOS 64 62 67TBILI 1.4* 1.4* 1.2Intake and Output:Date 08/15/18 07 - 08/16/18 0659 08/16/18 07 - 08/17/18 0659Shift 8147-7196 8397-6091 7441-6265 24 Hour Total 8707-0950 0297-91596218-7261 24 Hour TotalINTAKE PO 320 320 PO 320 320 Supplements (mL) 0 0 IV 623 493 0444 NS 0.9% 941 639 5297 Blood Products 1 1 Packed Red Blood Cells Number of Units 1 1 Other Amount Wasted PRBC 0 mL 0 mL Shift Total 1311 990 2301OUTPUT Urine 900 1340 2425 4665 Void (ml) 200 200 Straight cath (ml) 700 700 Tube Output ( Indwelling Urinary Catheter 08/15/18 1600 Angel 16Fr) 1340 2425 3765 # of BMs Number of BMs 0 x 0 x 0 x Shift Total 900 1340 2425 4665Weight (kg) 96.5 96.5 96.5 96.5 96.9 96.9 96.9 96.9Current Medications:Current hospital medications:oxyCODONE IR 5-10 mg tab(s) (ROXICODONE) 5-10 mg ORAL q 4 H PRNiv contrast (radiology procedure) INTRAVENOUS DIRECTED PRNenteric contrast (radiology procedure) ORAL DIRECTED PRNlisinopril 20 mg tab(s) (ZESTRIL, PRINIVIL) 20 mg ORAL DAILYallopurinol 300 mg tab(s) (ZYLOPRIM) 300 mg ORAL DAILYacyclovir 400 mg tab(s) (ZOVIRAX) 400 mg ORAL BIDpotassium chloride iv piggyback 20 mEq/100 mL 20 mEq INTRAVENOUS PRNpotassium chloride ER 40-60 mEq tab(s) (K-DUR, KLOR-CON) 40-60 mEq ORALDAILY PRNmagnesium sulfate in sterile water 4 g iv piggyback 4 g INTRAVENOUS PRNsalt and soda 10 mL oral liquid 10 mL ORAL QIDnystatin 5 mL CUP (MYCOSTATIN) 5 mL ORAL ZLAoyeqhgudarMJRDK-jswkxe-saodjierk 10 mL oral liquid (BMX 1:1:1) 10 mL ORALq 4 H PRN0.9% NaCl 3-5 mL 3-5 mL INTRAVENOUS q 12 Hacetaminophen 650 mg tab(s) (TYLENOL) 650 mg ORAL q 4 H PRNdiphenhydrAMINE 25 mg (BENADRYL) 25 mg ORAL q 6 H PRNNaCl 0.9% iv infusion 100 mL/hr INTRAVENOUS CONTINUOUSondansetron (PF) 8 mg injection (ZOFRAN) 8 mg INTRAVENOUS q 8 H PRNlactulose 20 g CUP (DUPHALAC, CONSTULOSE) 20 g ORAL BIDPrior to Admission Medications:No prescriptions on file. PROGRESS Observed: 08/16/2018 Status: COMPLETED Source: [place] 7:59 AM [facility] REPOSITORY HNO ID: [id number]: Sandy ([facility]) ScullyService: Hematology/OncologyAuthor Type: Nurse PractitionerType: Progress NotesFiled: 08/16/2018 3:37 PMNote Text:ONCOLOGY LEUKEMIA PROGRESS NOTESERVICE DATE: 08/16/2018SERVICE TIME: 7:59 AMSubjectiveINTERIM HISTORYAfebrile, VSSPeripheral flow consistent w/ AMLAwaiting BMBx resultsRectal pain persistsCT A/P: no e/o perianal abscessContinue PRN Oxy, Lido, sitz bathsCORS followingREVIEW OF SYSTEMSGENERAL: No fever or chills. Intermittent dizziness.HEENT: + intermittent headaches; No nose bleed, mouth pain or sore throat.RESPIRATORY: No cough or shortness of breath.CARDIOVASCULAR: No chest pain, palpitations or leg swelling.GI: Eating, drinking and taking pills adequately; no difficultyswallowing, abdominal discomfort, blood in stools, black stools ordiarrhea; + rectal pain -persistent.: No discomfort with voiding or gross blood in urine.MUSCULOSKELTAL: No pain.SKIN: No rash or itching.VENOUS ACCESS: Peripheral. No concerns.ObjectivePHYSICAL EXAMVITALS: Temp (24hrs), Av ?C (98.6 ?F), Min:36.6 ?C (97.9 ?F), Max:37.5?C (99.5 ?F) BP 136/50 Pulse 95 Temp 37.6 ?C (99.6 ?F) (Oral) Resp 18 Ht167.5 cm (5' 5.95) Wt 96.9 kg (213 lb 9.6 oz) SpO2 96% BMI 34.53kg/m?INTAKE AND OUTPUTIntake/Output Summary (Last 24 hours) at 08/16/18 1537Last data filed at 08/16/18 1100 Gross per 24 hourIntake 1548 mlOutput 4240 mlNet -2692 mlGENERAL: No acute distress; alert and oriented x 3.HEENT: No mucositis.LUNGS: Clear to auscultation; no wheezing, rhonchi or rales.HEART: Regular rhythm; normal rate; no murmur.ABDOMEN: Bowel sounds present; soft, non-tender and not distended. Noexternal hemorrhoids or obvious abscess.EXTREMITIES: No edema.SKIN: No rash.VENOUS ACCESS: No erythema, tenderness or drainage.MEDICATIONSCurrent hospital medications:lidocaine 2 % (XYLOCAINE) MUCOUS MEMBRANE TID PRNoxyCODONE IR 5-10 mg tab(s) (ROXICODONE) 5-10 mg ORAL q 4 H PRNiv contrast (radiology procedure) INTRAVENOUS DIRECTED PRNenteric contrast (radiology procedure) ORAL DIRECTED PRNallopurinol 300 mg tab(s) (ZYLOPRIM) 300 mg ORAL DAILYacyclovir 400 mg tab(s) (ZOVIRAX) 400 mg ORAL BIDpotassium chloride iv piggyback 20 mEq/100 mL 20 mEq INTRAVENOUS PRNpotassium chloride ER 40-60 mEq tab(s) (K-DUR, KLOR-CON) 40-60 mEq ORALDAILY PRNmagnesium sulfate in sterile water 4 g iv piggyback 4 g INTRAVENOUS PRNsalt and soda 10 mL oral liquid 10 mL ORAL QIDnystatin 5 mL CUP (MYCOSTATIN) 5 mL ORAL ORFdobdqotcgtBMWXJ-dhjvdr-htrbvqznq 10 mL oral liquid (BMX 1:1:1) 10 mL ORALq 4 H PRN0.9% NaCl 3-5 mL 3-5 mL INTRAVENOUS q 12 Hacetaminophen 650 mg tab(s) (TYLENOL) 650 mg ORAL q 4 H PRNdiphenhydrAMINE 25 mg (BENADRYL) 25 mg ORAL q 6 H PRNNaCl 0.9% iv infusion 100 mL/hr INTRAVENOUS CONTINUOUSondansetron (PF) 8 mg injection (ZOFRAN) 8 mg INTRAVENOUS q 8 H PRNlactulose 20 g CUP (DUPHALAC, CONSTULOSE) 20 g ORAL BIDLABORATORY DATARecent Labs 08/16/1800WBC 7.27 7.23 7.82RBC 2.53* 2.40* 2.26*HB 7.9* 7.5* 7.4*HCT 23.2* 22.0* 21.5*PLT 23* 22* 25*MCV 91.7 91.7 95.1MCH 31.2 31.3 32.7MCHC 34.1 34.1 34.4RDWCV 18.9* 18.6* 17.9*MPV 11.2 10.8 10.8NEUTP 7.0 1.8 0.9ABSNEUT 0.51* 0.13* 0.07*ABLAST 68.7* 68.4* 69.8*LYMPHP 24.3 29.8 29.3MONOP 0.0 0.0 0.0EODINP 0.0 0.0 0.0BASOP 0.0 0.0 0.0ABSMONO 0.00 0.00 0.00ABSEOSIN 0.00 0.00 0.00ABSBASO 0.00 0.00 0.00Recent Labs 08/16/1800NA 137 136 136 138K 4.2 4.1 4.3 4.3CHLOR 101 102 102 102CO2 25 22 24 25CREAT 0.73 0.78 0.73 0.72BUN 12 13 14 14GLUC 124* 130* 106* 129*P 2.7 2.5* 2.3* 2.5*TPROT 6.6 6.6 6.8 6.9ALB 3.6* 3.5* 3.9 3.8*CA 10.0 9.6 9.6 10.0ALKPHOS 64 62 67 64TBILI 1.4* 1.4* 1.2 1.3AST 14 16 15 19ALT 11 12 13 14URICACID 3.4 3.4 -- 4.0PTSEC 10.7 10.9 10.8 --INR 1.0 1.0 1.0 --APTT 25.4 24.0 23.8 25.1DATA:Diagnostic tests reviewed for today's visit:Most recent labs and imaging results.Assessment/PlanActive Hospital Problems Diagnosis Date Noted- 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/2018 Priority: A Overview Note: Tari Black is a 73 year old female with PMH of HTN and arthritis beingadmitted due to concern for acute leukemia after going to her PCP forupset stomach, headaches, and fatigue (CBC showing pancytopenia).- 68% peripheral blasts on CBC, 08/16.- 08/15 peripheral flow: AML- CXR No acute findings, EKG NSR- mIVF, allopurinol, TLS labs daily- BMBx 08/15 -->path in process.-Treatment discussion, line placement, echo -->once Dx finalized.- Pancytopenia (HCC) 08/14/2018 Priority: B Overview Note: Secondary to acute leukemia- Transfuse LR + IR blood products for Hgb <8; Plt <10 or active bleeding- Transfuse RBCs today, 08/16.- Headache Priority: B Overview Note: - CT brain 08/14- Negative for acute findings- PRN oxy- Nausea Priority: C Overview Note: ?secondary to acute leukemia- Zofran PRN available- Immunodeficiency (HCC) 08/14/2018 Priority: D Overview Note: secondary to acute leukemia- ppx acyclovir- Rectal pain Priority: E Overview Note: Pt 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 3-day 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- No visible signs of hemorrhoids, fissure or abnormality- CORS consulted, appreciate assistance.- CT A/P: no e/o perianal abscess.- Start sitz baths PRN- Continue PRN Oxy IR- Start topical Lidocaine PRN- Continue bowel regimen- HTN (hypertension) 08/14/2018 Priority: F Overview Note: - Hold home Lisinopril w/ soft BPs, c/o intermittent dizziness- Electrolyte imbalance risk Priority: F Overview Note: - Replete K, Mg per protocol- Reg diet- continue mIVF NS @ 100cc/hr- Urinary retention Priority: H Overview Note: Urinary retention noted on 08/15, possibly r/t constipation vs rectalpain- Continue angel xgd- Strict I AND O' s- Continue bowel regimen- Hospital discharge follow-up Overview Note: - Pending diagnosis, treatment plan- Following Dr Hoang- PT/OT: eval AND treatMedication and Non-Pharmacologic VTE Prophylaxis/Ntpvigrafwohcj70/27/181514 vte pharmacologic prophylaxis contraindicated (fl,oh)08/14/181514 vte non-pharmacologic prophylaxis contraindicated (fl,oh)08/14/181514 activity - mobilize patient (fl,oh)VTE Prophylaxis: Contraindicated thrombocytopeniaSIGNATURE: Sandy Villatoro APRN.MARINE SURVEYOR PATIENT NAME: Tari SanchezTE: August 16, 2018 : 7:59 AM PAGER/CONTACT #: [id number]/MEDICAL ONCOLOGY STAFF:TEACHING PHYSICIAN NOTE OF PERSONAL INVOLVEMENT IN CARE?I have reviewed the progress note obtained and documented by the licensedindependent practitioner and I personally participated in the keycomponents. I have discussed the case and management of the patient's carewith the licensed independent practitioner. 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 Patient admitted for inductionchemotherapy.??The [facility] conducts standardquality assurance validation for all diagnosed patients new to the cancerinstitute and this will also be performed during this admission.Awaiting BM biopsy final result. Rectal pain, CT negative, rectal surgeryfollowing. She is immunocompromised and will need transfusion support.?Kathy England StaffPager:[phone] 2017 1:14 PM PROTIME Collected: 08/16/2018 Status: F Source: [place] 5:08 AM [facility] REPOSITORY TYPE CODE TESTS RESULT OUT OF RANGE REFERENCE UNITS LAB PSEC 9.7-13.0 sec PT 10.7 Sec LAB INR 0.9-1.3 PT 1.0 INR Result Comment: Vitamin K Antagonist (VKA) Therapeutic Range: INR 2 to 3 (Target INR of 2.5) Note: For patients treated with VKA drugs, such as warfarin, the [place] [employer] 2012 Guideline recommends a therapeutic INR range of 2 to 3 (target INR of 2.5). This recommendation includes high-risk patients with antiphospholipid syndrome with previous arterial or venous thromboembolism, current-generation mechanical or bioprosthetic aortic heart valve replacement. Note: Patients with mechanical aortic valve replacement and additional risk factors for thromboembolic events (atrial fibrillation, previous thromboembolism, LV dysfunction, hypercoagulable conditions) or an older generation mechanical AVR (i.e., ball in-Cage) or any mechanical MVR should have a INR therapeutic range of 2.5 to 3.5 (target INR of 3). Jhon GH, et al. Chest 2012, 141:7S-47S Diallo PAZ et al. [facility] 2017, 70: 252-289 Performed By: #### PT, PTT, CMP, PHOS, URIC, CBCDIF #### [facility] [address] [place], [place] [address] APTT Collected: 08/16/2018 Status: F Source: [place] 5:08 AM [facility] REPOSITORY TYPE CODE TESTS RESULT OUT OF RANGE REFERENCE UNITS LAB APTT 23.0-32.4 sec APTT 25.4 Result Comment: Unfractionated Heparin Therapeutic Ranges: Standard Heparin Nomogram: 53 to 78 seconds (anti-Xa level of 0.3 to 0.7 U/ml) Low Dose/ACS Nomogram: 49 to 67 seconds (anti-Xa level of 0.2 to 0.5 U/ml) Stroke Treatment Nomogram: 49 to 67 seconds (anti-Xa level of 0.2 to 0.5 U/ml) Note: The APTT therapeutic range has been determined for the current lot of laboratory APTT reagent in use throughout the [facility]. Performed By: #### PT, PTT, CMP, PHOS, URIC, CBCDIF #### [facility] [address] [place], [place] [address] COMP METABOLIC PANEL Collected: 08/16/2018 Status: F Source: [place] 5:08 [facility] REPOSITORY TYPE CODE TESTS RESULT OUT OF REFERENCE UNITS RANGE LAB TP 6.3-8.0 g/dL Protein, Total 6.6 LAB ALB Low 3.9-4.9 g/dL Albumin 3.6 LAB CA 8.5-10.2 mg/dL Calcium, Total 10.0 LAB TBIL High 0.2-1.3 mg/dL Bilirubin, 1.4 Total LAB ALKP 34-123 U/L Alkaline 64 Phosphatase LAB AST 13-35 U/L AST 14 LAB GLU High 74-99 mg/dL Glucose 124 Result Comment: The [place] Diabetes Association (ADA) provides guidance for cutoff values for fasting glucose and r andom glucose. The ADA defines fasting as no caloric intake for at least 8 hours. Fasting plasma glucose results between 100 to 125 mg/dL indicate increased risk for diabetes (prediabetes). Fasting plasma glucose results greater than or equal to 126 mg/dL meet the criteria for diagnosis of diabetes. In the absence of unequivocal hyperglycemia, results should be confirmed by repeat testing. In a patient with classic symptoms of hyperglycemia or hyperglycemic crisis, random plasma glucose results greater than or equal to 200 mg/dL meet the criteria for diagnosis of diabetes. Reference: Standards of Medical Care in Diabetes 2016, [place] Diabetes Association. Diabetes Care. 2016.39(Suppl 1). LAB BUN 7-21 mg/dL BUN 12 LAB CRET 0.58-0.96 mg/dL Creatinine 0.73 LAB NA 136-144 mmol/L Sodium 137 LAB K 3.7-5.1 mmol/L Potassium 4.2 LAB CL 97-105 mmol/L Chloride 101 LAB CO2 22-30 mmol/L CO2 25 LAB AGAP 9-18 mmol/L Anion Gap 11 LAB ALT 7-38 U/L ALT 11 LAB GFRAA eGFR- >60 Amer. LAB GFRNAA . eGFR-All Other >60 Races Result Comment: eGFR (Estimated GFR) Units of measure: mL/min/1.73 meters squared eGFR is derived from the reexpressed MDRD Study equation using the following parameters: serum creatinine, age, gender and race. The creatinine assay has been calibrated to be traceable to IDMS. An eGFR <60 mL/min/1.73m2 for >3 months is consistent with chronic kidney disease. Refer to KDOQI guidelines for clinical interpretation. In patients with unstable renal function, e.g. those with acute kidney injury, the eGFR may not accurately reflect actual GFR. Performed By: #### PT, PTT, CMP, PHOS, URIC, CBCDIF #### [facility] [address] [place], [place] [address] PHOSPHORUS Collected: 08/16/2018 Status: F Source: [place] 5:08 AM [facility] REPOSITORY TYPE CODE TESTS RESULT OUT OF REFERENCE UNITS RANGE LAB PHOS 2.7-4.8 mg/dL Phosphorus 2.7 Performed By: #### PT, PTT, CMP, PHOS, URIC, CBCDIF #### [facility] [address] [place], [place] [address] URIC ACID Collected: 08/16/2018 Status: F Source: [place] 5:08 AM [facility] REPOSITORY TYPE CODE TESTS RESULT OUT OF RANGE REFERENCE UNITS LAB URIC 2.5-6.6 mg/dL Uric 3.4 Acid Performed By: #### PT, PTT, CMP, PHOS, URIC, CBCDIF #### [place] [address] CBC AND DIFFERENTIAL Collected: 08/16/2018 Status: F Source: [place] 5:08 AM [facility] REPOSITORY TYPE CODE TESTS RESULT OUT OF REFERENCE UNITS RANGE LAB WBC 3.70-11.00 k/uL WBC 7.27 LAB RBC Low 3.90-5.20 m/uL RBC 2.53 LAB HGB Low 11.5-15.5 g/dL Hemoglobin 7.9 LAB HCT Low 36.0-46.0 % Hematocrit 23.2 LAB MCV 80.0-100.0 fL MCV 91.7 LAB MCH 26.0-34.0 pG MCH 31.2 LAB MCHC 30.5-36.0 g/dL MCHC 34.1 LAB RDWCV High 11.5-15.0 % RDW-CV 18.9 LAB PLTCT Low 150-400 k/uL Platelet 23 Count Result Comment: Result checked and verified No clot detected. LAB MPV 9.0-12.7 fL MPV 11.2 LAB ANEUT % Neut% 7.0 LAB AANEUT Low 1.45-7.50 k/uL Abs Neut 0.51 LAB ALYMP % Lymph% 24.3 LAB AALYMP 1.00-4.00 k/uL Abs Lymph 1.77 LAB AMONO % [place]% 0.0 LAB AAMONO <0.87 k/uL Abs [place] 0.00 LAB AEOS % Eosin% 0.0 LAB AAEOS <0.46 k/uL Abs Eosin 0.00 LAB ABASO % Baso% 0.0 LAB AABASO <0.11 k/uL Abs Baso 0.00 LAB ABLAST High 0 % Blast% 68.7 LAB ANIIMI Anisocytosis Present LAB OVAIMI Ovalocytes Few LAB PLTEST Platelet Estimate Platelet estimate decreased LAB DTYP DTYPE Manual Diff Performed By: #### PT, PTT, CMP, PHOS, URIC, CBCDIF #### [facility] [address], [place] [address] NURSING PROG Observed: 08/16/2018 Status: COMPLETED Source: [place] 2:52 AM [facility] REPOSITORY O ID: [id number]: Kristal (Rn) LORNA Floreservice: (none)Author Type: Registered NurseType: Nursing Progress NoteFiled: 08/16/2018 6:48 AMNote Text: Nursing Progress NotePatient Name: Tari BalckMRN: [id number] Location: [place] [id number] Feavt Note:0230: Lysis labs resulted Hgb 7.5 AND Phos 2.5. scallop cutter machine notified. No ordersreceived.This note was completed by: Kristal Flores RN FIBRINOGEN Collected: 08/16/2018 Status: F Source: [place] 12:20 AM [facility] REPOSITORY TYPE CODE TESTS RESULT OUT OF REFERENCE UNITS RANGE LAB FIBCT High 200-400 mg/dL Fibrinogen 424 Performed By: #### FIBCT, PT, PTT, LD6, CMP, PHOS, URIC, CBCDIF #### [facility] [address] [place], [place] [address] PROTIME Collected: 08/16/2018 Status: F Source: [place] 12:20 AM [facility] REPOSITORY TYPE CODE TESTS RESULT OUT OF RANGE REFERENCE UNITS LAB PSEC 9.7-13.0 sec PT 10.9 Sec LAB INR 0.9-1.3 PT 1.0 INR Result Comment: Vitamin K Antagonist (VKA) Therapeutic Range: INR 2 to 3 (Target INR of 2.5) Note: For patients treated with VKA drugs, such as warfarin, the [place] [employer] 2012 Guideline recommends a therapeutic INR range of 2 to 3 (target INR of 2.5). This recommendation includes high-risk patients with antiphospholipid syndrome with previous arterial or venous thromboembolism, current-generation mechanical or bioprosthetic aortic heart valve replacement. Note: Patients with mechanical aortic valve replacement and additional risk factors for thromboembolic events (atrial fibrillation, previous thromboembolism, LV dysfunction, hypercoagulable conditions) or an older generation mechanical AVR (i.e., ball in-Cage) or any mechanical MVR should have a INR therapeutic range of 2.5 to 3.5 (target INR of 3). Jhon GH, et al. Chest 2012, 141:7S-47S Diallo RA, et al. [facility] 2017, 70: 252-289 Performed By: #### FIBCT, PT, PTT, LD6, CMP, PHOS, URIC, CBCDIF #### [facility] [address] [place], [place] [address] APTT Collected: 08/16/2018 Status: F Source: [place] 12:20 AM [facility] REPOSITORY TYPE CODE TESTS RESULT OUT OF RANGE REFERENCE UNITS LAB APTT 23.0-32.4 sec APTT 24.0 Result Comment: Unfractionated Heparin Therapeutic Ranges: Standard Heparin Nomogram: 53 to 78 seconds (anti-Xa level of 0.3 to 0.7 U/ml) Low Dose/ACS Nomogram: 49 to 67 seconds (anti-Xa level of 0.2 to 0.5 U/ml) Stroke Treatment Nomogram: 49 to 67 seconds (anti-Xa level of 0.2 to 0.5 U/ml) Note: The APTT therapeutic range has been determined for the current lot of laboratory APTT reagent in use throughout the [facility]. Performed By: #### FIBCT, PT, PTT, LD6, CMP, PHOS, URIC, CBCDIF #### [facility] [address] [place], [place] [address] LD Collected: 08/16/2018 Status: F Source: [facility] 12:20 AM [facility] REPOSITORY TYPE CODE TESTS RESULT OUT OF RANGE REFERENCE UNITS LAB LD High 135-214 U/L LD 268 Performed By: #### FIBCT, PT, PTT, LD6, CMP, PHOS, URIC, CBCDIF #### [facility] [address] [place], [place] [address] COMP METABOLIC PANEL Collected: 08/16/2018 Status: F Source: [place] 12:20 AM [facility] REPOSITORY TYPE CODE TESTS RESULT OUT OF REFERENCE UNITS RANGE LAB TP 6.3-8.0 g/dL Protein, Total 6.6 LAB ALB Low 3.9-4.9 g/dL Albumin 3.5 LAB CA 8.5-10.2 mg/dL Calcium, Total 9.6 LAB TBIL High 0.2-1.3 mg/dL Bilirubin, 1.4 Total LAB ALKP 34-123 U/L Alkaline 62 Phosphatase LAB AST 13-35 U/L AST 16 LAB GLU High 74-99 mg/dL Glucose 130 Result Comment: The [place] Diabetes Association (ADA) provides guidance for cutoff values for fasting glucose and r andom glucose. The ADA defines fasting as no caloric intake for at least 8 hours. Fasting plasma glucose results between 100 to 125 mg/dL indicate increased risk for diabetes (prediabetes). Fasting plasma glucose results greater than or equal to 126 mg/dL meet the criteria for diagnosis of diabetes. In the absence of unequivocal hyperglycemia, results should be confirmed by repeat testing. In a patient with classic symptoms of hyperglycemia or hyperglycemic crisis, random plasma glucose results greater than or equal to 200 mg/dL meet the criteria for diagnosis of diabetes. Reference: Standards of Medical Care in Diabetes 2016, [place] [employer]. Diabetes Care. 2016.39(Suppl 1). LAB BUN 7-21 mg/dL BUN 13 LAB CRET 0.58-0.96 mg/dL Creatinine 0.78 LAB NA 136-144 mmol/L Sodium 136 LAB K 3.7-5.1 mmol/L Potassium 4.1 LAB CL 97-105 mmol/L Chloride 102 LAB CO2 22-30 mmol/L CO2 22 LAB AGAP 9-18 mmol/L Anion Gap 12 LAB ALT 7-38 U/L ALT 12 LAB GFRAA eGFR- >60 Amer. LAB GFRNAA . eGFR-All Other >60 Races Result Comment: eGFR (Estimated GFR) Units of measure: mL/min/1.73 meters squared eGFR is derived from the reexpressed MDRD Study equation using the following parameters: serum creatinine, age, gender and race. The creatinine assay has been calibrated to be traceable to IDMS. An eGFR <60 mL/min/1.73m2 for >3 months is consistent with chronic kidney disease. Refer to KDOQI guidelines for clinical interpretation. In patients with unstable renal function, e.g. those with acute kidney injury, the eGFR may not accurately reflect actual GFR. Performed By: #### FIBCT, PT, PTT, LD6, CMP, PHOS, URIC, CBCDIF #### [place] [address] PHOSPHORUS Collected: 08/16/2018 Status: F Source: [place] 12:20 AM [facility] REPOSITORY TYPE CODE TESTS RESULT OUT OF REFERENCE UNITS RANGE LAB PHOS Low 2.7-4.8 mg/dL Phosphorus 2.5 Performed By: #### FIBCT, PT, PTT, LD6, CMP, PHOS, URIC, CBCDIF #### [place] [address] URIC ACID Collected: 08/16/2018 Status: F Source: [place] 12:20 AM [facility] REPOSITORY TYPE CODE TESTS RESULT OUT OF RANGE REFERENCE UNITS LAB URIC 2.5-6.6 mg/dL Uric 3.4 Acid Performed By: #### FIBCT, PT, PTT, LD6, CMP, PHOS, URIC, CBCDIF #### [place] [address] CBC AND DIFFERENTIAL Collected: 08/16/2018 Status: F Source: [place] 12:20 AM [facility] REPOSITORY TYPE CODE TESTS RESULT OUT OF REFERENCE UNITS RANGE LAB WBC 3.70-11.00 k/uL WBC 7.23 LAB RBC Low 3.90-5.20 m/uL RBC 2.40 LAB HGB Low 11.5-15.5 g/dL Hemoglobin 7.5 LAB HCT Low 36.0-46.0 % Hematocrit 22.0 LAB MCV 80.0-100.0 fL MCV 91.7 LAB MCH 26.0-34.0 pG MCH 31.3 LAB MCHC 30.5-36.0 g/dL MCHC 34.1 LAB RDWCV High 11.5-15.0 % RDW-CV 18.6 LAB PLTCT Low 150-400 k/uL Platelet 22 Count Result Comment: Result checked and verified No clot detected. LAB MPV 9.0-12.7 fL MPV 10.8 LAB ANEUT % Neut% 1.8 LAB AANEUT Low 1.45-7.50 k/uL Abs Neut 0.13 LAB ALYMP % Lymph% 29.8 LAB AALYMP 1.00-4.00 k/uL Abs Lymph 2.15 LAB AMONO % [place]% 0.0 LAB AAMONO <0.87 k/uL Abs [place] 0.00 LAB AEOS % Eosin% 0.0 LAB AAEOS <0.46 k/uL Abs Eosin 0.00 LAB ABASO % Baso% 0.0 LAB AABASO <0.11 k/uL Abs Baso 0.00 LAB NRBC High 0 /100 WBC NRBCs 2 LAB ABLAST High 0 % Blast% 68.4 LAB ANIIMI Anisocytosis Present LAB AUEIMI Saroj Rods Present LAB OVAIMI Ovalocytes Few LAB PLTEST Platelet Estimate Platelet estimate decreased LAB DTYP DTYPE Manual Diff Performed By: #### FIBCT, PT, PTT, LD6, CMP, PHOS, URIC, CBCDIF #### [facility] [address] [place], [place] [address] PROGRESS Observed: 08/15/2018 Status: COMPLETED Source: [place] 9:21 PM [facility] REPOSITORY HNO ID: [id number]: Aggie Huertas CTS (Ct)ervice: RadiologyAuthor Type: Clinical TechnicianType: Progress NotesFiled: 08/15/2018 9:21 PMNote Text: Radiology Service Progress NotePATIENT NAME: Tari BlackN: [id number] OF SERVICE: August 15, 2018TIME: 9:21 PMPATIENT IDENTITY VERIFICATION COMPLETED USING TWO (2) METHODS: Patientconfirmed name verbally and ID band matches..PATIENT GENDER DATA: Female. status: : NoBreastfeeding status: NO.PATIENT RELEVANT IMPLANT DATA REVIEWED: Not ApplicableRADIOLOGY DEPARTMENT: CT; Exam(s) Completed: Abdomen/PelvisPERIPHERAL IV DATA: Inpatient: see [facility] documentationSIGNED BY: Aggie Huertas CTSept2017 9:[address] ABD/PEL W IVCON Observed: 08/15/2018 Status: F Source: [place] 9:20 PM [facility] REPOSITORY * * *Final Report* * *DATE OF EXAM: Aug 15 2018 9:20PM [facility] 0530 - CT ABD/PEL W IVCON / REASON: Infection, abdomen-pelvis * * * * Physician Interpretation * * * * EXAMINATION: CT ABDOMEN AND PELVIS WITH IV CONTRASTCLINICAL HISTORY: Patient presented with abdominal pain and headache, concern for acute leukemia due to pancytopenia. Patient complains of perianal pain, rule out perianal abscess.TECHNIQUE: CT of the abdomen and pelvis was performed using standard technique, scanning from just above the dome of the diaphragm to the symphysis pubis.MQ: CTAP_3Contrast:IV: 150 ml of Omnipaque 300Oral: 900 ml of 50ML Omnipaque 240 W 850ML WaterCT Radiation dose: Integrated Dose-length product (DLP) for this visit = 997 mGy*cm.CT Dose Reduction Employed: Automated exposure control (AEC)COMPARISON: None.RESULT:Liver: No mass. 1.3 cm hepatic dome and 0.9 cm segment VIII partly calcified hepatic lesions.Biliary: No bile duct dilation. Gallbladder is unremarkable.Spleen: No mass. No splenomegaly.Pancreas: No mass or duct dilation.Adrenals: No mass.Kidneys: Mild right renal atrophy with cortical thinning. Multiple hypoattenuating lesions in the left kidney, probable cysts, for example a 1.4 cm left inferior pole cyst (2:68) with punctate wall calcification.GI tract: No dilation or wall thickening. Diffuse colonic diverticulosis without signs of diverticulitis.Lymph nodes: No abdominal or pelvic lymphadenopathy.Mesentery/Peritoneum: No ascites or mass.Retroperitoneum: No mass.Vasculature: The celiac axis and SMA are patent. The portal vein and branches, splenic vein, SMV, and hepatic veins are patent. Arterial atherosclerotic disease without aneurysm.Pelvis: No mass, ascites or fluid collection. Angel catheter within partially decompressed bladder.. No CT evidence of perianal abscess.Bones/Soft Tissues: Large rectus diastases. Scoliosis with advanced degenerative changes.Lower thorax: Bibasilar atelectasis.IMPRESSION:NO CT EVIDENCE OF PERIANAL ABSCESS OR OTHER ACUTE PROCESS IN THE ABDOMEN AND PELVIS. Casting House Laborer: YOSEF Transcribe Date/Time: Aug 15 2018 9:50PDictated by : Ritchie TSE examination was interpreted and the report reviewed and electronically signed by: NIC SARAVIA MD on Aug 16 2018 8:26AM [id number] NURSING PROG Observed: 08/15/2018 Status: COMPLETED Source: [place] 4:36 PM [facility] REPOSITORY O ID: [id number]: Hillary (Madelaine) LORNA Solitarioervice: (none)Author Type: Registered NurseType: Nursing Progress NoteFiled: 08/15/2018 6:11 PMNote Text: Nursing Progress NotePatient Name: Tari BlackMRN: [id number] Location: [place] [id number] Measw Note:1545- pt. Complaining of feeling full. Pt. Has not been able to void sincestraight cath at 1030am. Bladder scan done- 712m. YOUTH DEVELOPMENT PROFESSIONAL Harini notified.Angel placed by MADELAINE Branch. 640 ml out. Vss. Afebrile. Denies pain. Nonausea. Assessment done per flowsheet. Supportive family at bedside.1700- oral contrast started. Verbal education provided to pt and familyregarding procedure.1810- Oral contrast finished. CT notified.This note was completed by: Hillary Solitario RN CONSULT PROG Observed: 08/15/2018 Status: COMPLETED Source: [place] 4:05 PM [facility] REPOSITORY HNO ID: [id number]: Brigitte Hernandez: ColorectalAuthor Type: PhysicianType: Consult Progress NoteFiled: 08/16/2018 3:09 PMNote Text:[facility] INITIAL CONSULTSERVICE DATE: 08/15/2018SERVICE TIME: 16:00REASON FOR CONSULT: Perianal pain in setting of ? Acute leukemiaREQUESTING PHYSICIAN: Dr Bettencourt CARE PHYSICIAN: Yariel Villasenor, BEAUubjectiveHISTORY OF PRESENT ILLNESS: Ms. Black is a 73 year old female who presentsfor abdominal discomfort, fatigue and easy bruising; CBC showedpancytopenia (Hb and platelet) ? Leukemic process. Now for hematologicalworkup.PMH Obesity; HTN (on Lisinopril), Arthritis; No previous abdo surgeyDenied any NANDV; however she had perianal pain for the last 3 days; nofever/chills/rigors; no discharge; passing flatus but no BM for 3 days; noPR bleeding; Never had a colonoscopyCurrently having difficulty urinating; feeling bloated; no abdo painFUNCTIONAL STATUS: Participate in moderate recreational activities, suchas golf, bowling, dancing, doubles tennis, or throwing a baseball orfootball (6.00 METs)No past medical history on file.No past surgical history on file.No family history on file.Social HistorySubstance Use Topics- Smoking status: Not on file- Smokeless tobacco: Not on file- Alcohol use Not on fileNo prescriptions prior to admission.Current hospital medications:oxyCODONE IR 5-10 mg tab(s) (ROXICODONE) 5-10 mg ORAL q 4 H PRNiv contrast (radiology procedure) INTRAVENOUS DIRECTED PRNenteric contrast (radiology procedure) ORAL DIRECTED PRNlisinopril 20 mg tab(s) (ZESTRIL, PRINIVIL) 20 mg ORAL DAILYallopurinol 300 mg tab(s) (ZYLOPRIM) 300 mg ORAL DAILYacyclovir 400 mg tab(s) (ZOVIRAX) 400 mg ORAL BIDpotassium chloride iv piggyback 20 mEq/100 mL 20 mEq INTRAVENOUS PRNpotassium chloride ER 40-60 mEq tab(s) (K-DUR, KLOR-CON) 40-60 mEq ORALDAILY PRNmagnesium sulfate in sterile water 4 g iv piggyback 4 g INTRAVENOUS PRNsalt and soda 10 mL oral liquid 10 mL ORAL QIDnystatin 5 mL CUP (MYCOSTATIN) 5 mL ORAL DJFcbgophcetuNLNDW-usikxk-ujjfbumom 10 mL oral liquid (BMX 1:1:1) 10 mL ORALq 4 H PRN0.9% NaCl 3-5 mL 3-5 mL INTRAVENOUS q 12 Hacetaminophen 650 mg tab(s) (TYLENOL) 650 mg ORAL q 4 H PRNdiphenhydrAMINE 25 mg (BENADRYL) 25 mg ORAL q 6 H PRNNaCl 0.9% iv infusion 125 mL/hr INTRAVENOUS CONTINUOUSondansetron (PF) 8 mg injection (ZOFRAN) 8 mg INTRAVENOUS q 8 H PRNlactulose 20 g CUP (DUPHALAC, CONSTULOSE) 20 g ORAL BIDALLERGIESNo Known AllergiesObjectivePHYSICAL EXAM:BP 123/53 Pulse 97 Temp (Src) 98.1 (Oral) Resp 16 Ht 5'5.945[verified by Piper RN[ (1.68m) Wt 212 lb 11.9 oz (96.5kg) SbT251% BMI 34.40 kg/(m2).Physical Exam PerformedAbdo: soft and non tenderDiscussed with YOUTH DEVELOPMENT PROFESSIONAL: not neutropenic, can perform DREPerianal exam with Talent Manager (nurse on duty): slight swelling posteriorlywith tenderness; no sign of fissure when effacing perianal skin; scarringin left posterior lateral position ? Previous external drainage site;tender posteriorly in distal rectum and anal canal posteriorly; no obviouscollection.DATA:Diagnostic tests reviewed for today's visit:Most recent labsImpression/Recommendations1. Hematological changes: ;low Hb and platelet- awaiting BMT result2. Perianal pain? Perianal abscess but not clinically evident- warrant CT for evaluation given abdo bloating and low Hb; ? Abscess ?Other underlying GI malignancyWill d/w staff (Dr Hilliard)SIGNATURE: JOURDAN FONSECA MD PATIENT NAME: Tari BlackDATE: August 15, 2018 : 4:05 PM PAGER/CONTACT #: [phone] Staff:I saw, interviewed and examined the patient.agree with the note above.Anal pain for 4 days [since Saturday] in context of hematological dz.No systemic features of infection nor local signs of infection or sepsis.CTscan negative for occult source of sepsisHowever tender to gentle pressure on posterior perianal area.Suspect anal fissure.Suggest/recommend:Warm sitz bathLidocaine gel every 4 hoursDiltiazem 2% cream [compound drug, made in pharmacy]: apply pea size onthe anal orifice Common AE: itchiness and headache.Discussed with pt and family at robbie side.No surgical intervention.Please call with any questions or concernsBrigitte Hilliard MD PROCEDURE Observed: 08/15/2018 Status: COMPLETED Source: [place] 1:44 PM [facility] REPOSITORY O ID: [id number]: Xuan Lomax (Fel)Service: Hematology/OncologyAuthor Type: FellowType: ProceduresFiled: 08/15/2018 1:47 PMNote Text:BEDSIDE PROCEDURE NOTEPROCEDURE DATE: August 15, 2018PROCEDURE START TIME: 10:30 [facility] PROCEDURALIST: INDRA PattonISTANT(S): 1INFORMED CONSENT: Informed Consent obtained and on the chartUNIVERSAL PROTOCOL / SAFETY CHECKLISTSign in Communication: CompletedTime Out: Team Confirms the Correct Patient, Correct Procedure, CorrectSite and Site Marking, Correct Position (if applicable), Prep and Dry Time(if applicable). Time: 10:30 amAffirmation of Time Out: YESSign Out Discussion: CompletedPROCEDURE: BONE MARROW BIOPSYAspiration Type: UnilateralSite: Left Posterior Superior Iliac CrestPatient Position: Right lateral decubitisSite Prep: Povidone iodine, allowed to dry for 30 secondsLocal Anesthesia: 0 mls of 2% Buffered Lidocaine and 10 mls of 1%LidocaineProcedure:P-Commerce biopsy system was used.,Using aseptic technique, bone marrowaspiration was performed.,A touch prep was taken.,Core biopsy wasobtained in 2 pieces of 2.0 cm and 0.5 cm.,The core biopsy wasconfirmed.,Pressure dressing applied to Bone Marrow site(s). Hemostasismaintained.,Post-procedure care was reviewed and explained to thepatient.,Patient instructed to call with any complaints of redness,swelling, increased or unresolved pain, bleeding, chills, bruising, and/orfever.,Patient verbalized understanding.Complications: NonePatient tolerated procedure well.Specimens:Routine analysisDifferentialCytogeneticsFlow cytometryFLT3 mutational statusFISH for BCR-ABL and MLLDNA extractionNGSEstimated Blood Loss: 10 mlSIGNATURE: Xuan Lomax MD PATIENT NAME: Tari BlackDATE: August 15, 2018 : 1:44 PM PAGER/CONTACT #: [phone] SOCIAL WORK Observed: 08/15/2018 Status: COMPLETED Source: [place] 1:36 PM [facility] REPOSITORY O ID: [id number]: Ruba Daleervice: Social WorkAuthor Type: Social WorkerType: Social WorkFiled: 08/15/2018 2:06 PMNote Text:PSYCHOSOCIAL ASSESSMENTDate of Service: August 15, 2018Tari Black is a 73 year old female being seen for initial social workassessment.Diagnosis: Acute Leukemia [facility] Oncologist: [facility]: Curative intentToday's visit includes: self/patientFamily History of Cancer: Not discussed*SUPPORT NETWORK:Marital status: ( in jail).Parent(s): deceasedChild/Children: Yes.family day care worker arrangements needed: NoMount [facility] Provider: Not discussedCommunity Services: NoFaith Identified: YesReligion/Spirituality: [facility] these practices or beliefs that may affect or influence treatment? No*EMPLOYMENT/FINANCIAL/HEALTH INSURANCE:Employment: RetiredIncome source: Supported financially by familyInsurance: [facility] PolicyPrescription coverage: NoCOBRAIs the patient appropriate for referral to [facility] COBRAAssistance program? NoFinancial Distress: Patient uncertain at this time.: No*LIVING ARRANGEMENTS:Type: House- independent ranchResides with: 2 adult daughters*FUNCTIONAL STATUS:Cognitive limitations: nonePhysical limitations: noneLanguage barrier: NoHearing Impaired: NoSpeech Impaired: NoVisual Impairments: NoLiteracy Issues: Yes, will need medical details explained.Special considerations/accommodations needed: NoMENTAL HEALTH HISTORY: NoHistory of combat/trauma: NoSubstance Use and Treatment History: deniedHistory of Abuse: NoIssues with:? Sleep:No? Eating:No? Exercising: No? Stress Management: No*ADVANCE DIRECTIVES/LEGAL DOCUMENTS:Living Will: No and declined at this timeHealth Care Durable Power of Soccer Player: No and declined at this timeScanned into EPIC: NoGuardianship: No Scanned into EPIC:No*COPING STATUS:Coping Strengths: supportive relationships with immediate family, withfriends, with extended family, with neighbors and with churchspiritualitysuccessful managing past criseshopefulnessself advocatestrong problem-solving skillsability to planable to follow direction consistently over timeable to communicate effectivelyCurrent affect/mood: anxiousHistory of Loss: Yes, in prisonAdjustment to diagnosis: responding appropriately*BARRIERS/CARE CHALLENGES:Geographically isolatedAre barriers/care challenges identified likely to have an impact on thepatient's quality of life during treatment? No*CLINICAL IMPRESSION:SW met with patient to complete assessment. Patient denied any history ofdepression or anxiety. Patient reported that she has 2 adult daughtersthat live with her. One daughter has use of a cell phone. Patient is oldorder Hinduism however one of the less strict categories. Patient reportedthat her is currently in jail however did not elaborateregarding circumstances. SW [facility] familymembers. Patient will need further education regarding diagnosis andtreatment plan. SW to remain available as needed. Patient revealedfeeling overwhelmed. SW provided active listening and support.INTERVENTIONS/REFERRALS TO BE PROVIDED:Communicate pertinent medical/psychosocial information to Cancer CenterteamProvide emotional support to patient/familyReferral to community resourceAssist with financial support applicationsResources and Referrals:? Internal: NA? External: N/APLAN: Follow up appointment with SW in: YESENIA Long CASE MGT INIT Observed: 08/15/2018 Status: COMPLETED Source: [place] 1:15 PM [facility] REPOSITORY HNO ID: [id number]: Shavon LewRn) LORNA Rodriguezervice: Case ManagementAuthor Type: Registered NurseType: Patricia Mgt Initial AssessmentFiled: 08/15/2018 1:18 PMNote Text:CARE MANAGEMENT: ASSESSMENT AND DISCHARGE PLANSERVICE DATE: 08/15/2018SERVICE TIME: 1:15 PMPRIH[facility] PHYSICIAN:Yariel Villasenor, [facility] SOUTHhone: [phone] STATUS: InpatientNeeds Prior to Discharge: To Be DeterminedMEDICAL:Patient/Generation Engineer Stated Goals:To return home to life as it wasHealth Insurance: [employer] POLICYSee aboveHealth Issues Impacting Discharge Plan: NoneLast Admission Date: noneIs this Within the Past 30 days? NoAdvance Directive:Current Advance Directive: Living WillIn Chart: NoCare Industrial Relations Representative Attempted to Assist with AD Completion: NoUnable to Assist Due To:: Other: See Comment (Pt has at home)Health Literacy:1. How often do you need to have someone help you when you readinstructions, pamphlets, or other written material from your doctor orpharmacy? Sometimes - 32. How confident are you filling out medical forms by yourself? Quite abit - 2If Patient scores > 3 on either question, the following interventions wereput into place:Sit with Patient and Gave Patient the opportunity to ask questionsFUNCTIONAL AND COGNITIVE/BEHAVIORALPRIOR TO ADMISSION:Baseline Mental Status: Alert, Person, Place , Time and SituationFunctional Status: IndependentDoes Patient Currently Receive Any Community Services or Home Care? NoneEquipment Prior to Admission: NoneHas the Patient Been in a Mcfp Facility in the Past 30 days? NoSOCIAL:Living Arrangement: HomeLives With: 2 daughters and a son in law and grandchildrenFinancial Resources: N/APrimary Contact: Extended Emergency Contact InformationPrimary Emergency Contact: Natalie Black Ibrpzmof: SonSecondary Emergency Contact: Ion Dinero Vtabhmht: SonSupportive: YesOther Important Patient Contacts: NoneCaregiver Assessment:Caregiver is ready, willing and able to meet the patient's needs asrecommended by the inter-professional team? No Caregiver NeededPatient's transition needs and plan for meeting these needs: Family willbe able to transportDoes the patient have an acute stroke diagnosis, or has the patient had astroke during this admission? NoMedication Adherence:I am convinced of the importance of my prescription medication: Agreecompletely - 0I worry that my prescription medication will do more harm than good to meDisagree completely - 0I feel financially burdened by my [id number] expenses for myprescription medication: Disagree completely - 0Patient is categorized as low risk < 2Are you interested in bedside delivery of your medications? NoFood Concerns:In the Last Month, Have You had Trouble Getting Food? No trouble gettingfoodDuring the Last Month, Have You Worried Whether Your Food Would Run OutBefore You Had Enough Money to Buy More? NoIs the Patient Psychosocially Complex? NoASSESSMENT AND PLAN:Medical Needs: TBDPsychosocial Needs: NoneFREEDOM OF CHOICE EXPLAINED:N/APOTENTIAL TRANSITION PLANSHomeTo Be DeterminedCase manager managed backup services met with patient at bedside. Explained role of RN CaseManager and discharge planning.Pt stated indep with ADL's/IADL's and able to communicate needs. Indepprior to admission, here for blood work being off, had a BMBX today,awaiting results.Care management team is following patient for skilled needs and dischargeplanning. 24 hours notice is required if any new needs are anticipated inorder to ensure a safe discharge.NO WEEKEND DISCHARGE ANTICIPATED. You may page weekend caseworker intake @[phone] any immediate discharge planning needs. Primary team to continue tomanage and evaluate patient?s care. Tumbler Dyeing Machine Operator will reassess on Saturdayfor ongoing coordination of discharge plan.SIGNATURE: Shavon Rodriguez RN PATIENT NAME: Tari SanchezTE: August 15, 2018 : 1:15 PM PAGER/CONTACT #: [phone] FIBRINOGEN Collected: 08/15/2018 Status: F Source: [place] 12:25 PM [facility] REPOSITORY TYPE CODE TESTS RESULT OUT OF REFERENCE UNITS RANGE LAB FIBCT High 200-400 mg/dL Fibrinogen 450 Performed By: #### FIBCT, PT, PTT, CMP, PHOS, CBCDIF #### [facility] [address] [place], [place] [address] PROTIME Collected: 08/15/2018 Status: F Source: [place] 12:25 PM [facility] REPOSITORY TYPE CODE TESTS RESULT OUT OF RANGE REFERENCE UNITS LAB PSEC 9.7-13.0 sec PT 10.8 Sec LAB INR 0.9-1.3 PT 1.0 INR Result Comment: Vitamin K Antagonist (VKA) Therapeutic Range: INR 2 to 3 (Target INR of 2.5) Note: For patients treated with VKA drugs, such as warfarin, the [place] [employer] 2012 Guideline recommends a therapeutic INR range of 2 to 3 (target INR of 2.5). This recommendation includes high-risk patients with antiphospholipid syndrome with previous arterial or venous thromboembolism, current-generation mechanical or bioprosthetic aortic heart valve replacement. Note: Patients with mechanical aortic valve replacement and additional risk factors for thromboembolic events (atrial fibrillation, previous thromboembolism, LV dysfunction, hypercoagulable conditions) or an older generation mechanical AVR (i.e., ball in-Cage) or any mechanical MVR should have a INR therapeutic range of 2.5 to 3.5 (target INR of 3). Jhon MICHEL, et al. Chest 2012, 141:7S-47S Diallo PAZ, et al. [facility] 2017, 70: 252-289 Performed By: #### FIBCT, PT, PTT, CMP, PHOS, CBCDIF #### [facility] [address], [place] [address] APTT Collected: 08/15/2018 Status: F Source: [place] 12:25 PM [facility] REPOSITORY TYPE CODE TESTS RESULT OUT OF RANGE REFERENCE UNITS LAB APTT 23.0-32.4 sec APTT 23.8 Result Comment: Unfractionated Heparin Therapeutic Ranges: Standard Heparin Nomogram: 53 to 78 seconds (anti-Xa level of 0.3 to 0.7 U/ml) Low Dose/ACS Nomogram: 49 to 67 seconds (anti-Xa level of 0.2 to 0.5 U/ml) Stroke Treatment Nomogram: 49 to 67 seconds (anti-Xa level of 0.2 to 0.5 U/ml) Note: The APTT therapeutic range has been determined for the current lot of laboratory APTT reagent in use throughout the [facility]. Performed By: #### FIBCT, PT, PTT, CMP, PHOS, CBCDIF #### [facility] [address] [place], [place] [address] COMP METABOLIC PANEL Collected: 08/15/2018 Status: F Source: [place] 12:25 PM [facility] REPOSITORY TYPE CODE TESTS RESULT OUT OF REFERENCE UNITS RANGE LAB TP 6.3-8.0 g/dL Protein, Total 6.8 LAB ALB 3.9-4.9 g/dL Albumin 3.9 LAB CA 8.5-10.2 mg/dL Calcium, Total 9.6 LAB TBIL 0.2-1.3 mg/dL Bilirubin, 1.2 Total LAB ALKP 34-123 U/L Alkaline 67 Phosphatase LAB AST 13-35 U/L AST 15 LAB GLU High 74-99 mg/dL Glucose 106 Result Comment: The [place] Diabetes Association (ADA) provides guidance for cutoff values for fasting glucose and r andom glucose. The ADA defines fasting as no caloric intake for at least 8 hours. Fasting plasma glucose results between 100 to 125 mg/dL indicate increased risk for diabetes (prediabetes). Fasting plasma glucose results greater than or equal to 126 mg/dL meet the criteria for diagnosis of diabetes. In the absence of unequivocal hyperglycemia, results should be confirmed by repeat testing. In a patient with classic symptoms of hyperglycemia or hyperglycemic crisis, random plasma glucose results greater than or equal to 200 mg/dL meet the criteria for diagnosis of diabetes. Reference: Standards of Medical Care in Diabetes 2016, [place] Diabetes Association. Diabetes Care. 2016.39(Suppl 1). LAB BUN 7-21 mg/dL BUN 14 LAB CRET 0.58-0.96 mg/dL Creatinine 0.73 LAB NA 136-144 mmol/L Sodium 136 LAB K 3.7-5.1 mmol/L Potassium 4.3 LAB CL 97-105 mmol/L Chloride 102 LAB CO2 22-30 mmol/L CO2 24 LAB AGAP 9-18 mmol/L Anion Gap 10 LAB ALT 7-38 U/L ALT 13 LAB GFRAA eGFR- >60 Amer. LAB GFRNAA . eGFR-All Other >60 Races Result Comment: eGFR (Estimated GFR) Units of measure: mL/min/1.73 meters squared eGFR is derived from the reexpressed MDRD Study equation using the following parameters: serum creatinine, age, gender and race. The creatinine assay has been calibrated to be traceable to IDMS. An eGFR <60 mL/min/1.73m2 for >3 months is consistent with chronic kidney disease. Refer to KDOQI guidelines for clinical interpretation. In patients with unstable renal function, e.g. those with acute kidney injury, the eGFR may not accurately reflect actual GFR. Performed By: #### FIBCT, PT, PTT, CMP, PHOS, CBCDIF #### [facility] [address] [place], [place] [address] PHOSPHORUS Collected: 08/15/2018 Status: F Source: [place] 12:25 PM [facility] REPOSITORY TYPE CODE TESTS RESULT OUT OF REFERENCE UNITS RANGE LAB PHOS Low 2.7-4.8 mg/dL Phosphorus 2.3 Performed By: #### FIBCT, PT, PTT, CMP, PHOS, CBCDIF #### [facility] [address] [place], [place] [address] CBC AND DIFFERENTIAL Collected: 08/15/2018 Status: F Source: [place] 12:25 PM [facility] REPOSITORY TYPE CODE TESTS RESULT OUT OF REFERENCE UNITS RANGE LAB WBC 3.70-11.00 k/uL WBC 7.82 LAB RBC Low 3.90-5.20 m/uL RBC 2.26 LAB HGB Low 11.5-15.5 g/dL Hemoglobin 7.4 LAB HCT Low 36.0-46.0 % Hematocrit 21.5 LAB MCV 80.0-100.0 fL MCV 95.1 LAB MCH 26.0-34.0 pG MCH 32.7 LAB MCHC 30.5-36.0 g/dL MCHC 34.4 LAB RDWCV High 11.5-15.0 % RDW-CV 17.9 LAB PLTCT Low 150-400 k/uL Platelet 25 Count Result Comment: Result checked and verified No clot detected. LAB MPV 9.0-12.7 fL MPV 10.8 LAB ANEUT % Neut% 0.9 LAB AANEUT Low 1.45-7.50 k/uL Abs Neut 0.07 LAB ALYMP % Lymph% 29.3 LAB AALYMP 1.00-4.00 k/uL Abs Lymph 2.29 LAB AMONO % [place]% 0.0 LAB AAMONO <0.87 k/uL Abs [place] 0.00 LAB AEOS % Eosin% 0.0 LAB AAEOS <0.46 k/uL Abs Eosin 0.00 LAB ABASO % Baso% 0.0 LAB AABASO <0.11 k/uL Abs Baso 0.00 LAB ABLAST High 0 % Blast% 69.8 LAB ANIIMI Anisocytosis Present LAB AUEIMI Saroj Rods Present LAB OVAIMI Ovalocytes Few LAB PLTEST Platelet Estimate Platelet estimate decreased LAB DTYP DTYPE Manual Diff Performed By: #### FIBCT, PT, PTT, CMP, PHOS, CBCDIF #### [facility] [address], [place] [address] FLT3 GENE MUTATIONS Collected: 08/15/2018 Status: F Source: [place] 11:05 [facility] REPOSITORY TYPE CODE TESTS RESULT OUT OF REFERENCE UNITS RANGE LAB FLTRES Duplicate Result request Result Comment: Account Credited SEE RESULT FOR HNMNGS. DMCKNIGHT 08 15 2018 Performed By: #### FLT3 #### [address] [place], [place] [address] FLOW CYTO HOLD Collected: 08/15/2018 Status: F Source: [place] SAMPLE 11:05 [facility] REPOSITORY TYPE CODE TESTS RESULT OUT OF REFERENCE UNITS RANGE LAB FLOBELAD A bone marrow sample was Flow Cyto received for potential Hold Sample flow cytometry studies. Following morphologic review of the bone marrow, flow cytometric studies will be ordered by the hematopathologist if testing is indicated. Please see the corresponding bone marrow surgical pathology report. Result Comment: [id number] Performed By: #### FLOHLD #### [address] [place], [place] [address] FISH FOR PML/ROBERT Collected: 08/15/2018 Status: F Source: [place] 11:05 [facility] REPOSITORY TYPE CODE TESTS RESULT OUT OF REFERENCE UNITS RANGE LAB APLRES APL Result (NOTE) Result Comment: FISH results will follow in [facility] surgical pathology case #[id number] when complete. Performed By: #### APLFSH #### [address] [place], [place] [address] FISH FOR BCR/ABL1 Collected: 08/15/2018 Status: F Source: [place] 11:05 [facility] REPOSITORY TYPE CODE TESTS RESULT OUT OF REFERENCE UNITS RANGE LAB BCRRES BCR Result (NOTE) Result Comment: FISH results will follow in [facility] surgical pathology case #[id number] when complete. Performed By: #### BCRFSH #### [facility] [address] [place], [place] [address] BCR-ABL QUALITATIVE Collected: 08/15/2018 Status: F Source: [place] 11:05 AM [facility] REPOSITORY TYPE CODE TESTS RESULT OUT OF REFERENCE UNITS RANGE LAB BCRQLR BCR-ABL Qualitative (NOTE) Result Comment: Please refer to [facility] Surgical Pathology report, Performed By: #### BCRQL, NUCBUF #### [facility] [address] [place], [place] [address] DNA EXTRACTION (BUFFY) Collected: 08/15/2018 Status: F Source: [place] 11:05 [facility] REPOSITORY TYPE CODE TESTS RESULT OUT OF REFERENCE UNITS RANGE LAB NUCBC DNA Extration BC (NOTE) Result Comment: This specimen was received and successfully processed for future DNA purification should molecular testing be needed. Specimens will be available for 3 years from the date of collection. To order testing on this specimen for [facility] patients, please place an [facility] order for DNA and RNA Extractions for Clinical Testing ([id number]). To order testing for patients outside of the [facility] system, please request DNA and RNA Extraction for Clinical Testing, order code [id number]. If additional paperwork is required for testing, please send completed forms via secure email to . Performed By: #### BCRQL, NUCBUF #### [facility] [address] [place], [place] [address] ALL B CELL MRD Collected: 08/15/2018 Status: F Source: [place] 11:05 [facility] REPOSITORY TYPE CODE TESTS RESULT OUT OF REFERENCE UNITS RANGE LAB BMRDR ALL View B Cell MRD results in Scanned Documents link when available. Performed By: #### BMRD #### [facility] [address] [place], [place] [address] SURGICAL PATHOLOGY Observed: 08/15/2018 Status: C Source: [place] 11:05 AM [facility] REPOSITORY ADDITIONAL PROCEDURES PRESENTSpecimen [facility]: [id number] Physician: HORACE HOANG MDFINHILARIA DIAGNOSISBONE MARROW ASPIRATE, TOUCH PREPARATION, CLOT SECTION, CORE BIOPSY ANDPERIPHERAL BLOOD (A-C):- ACUTE MYELOID LEUKEMIA, SEE COMMENT.COMMENT: Further subclassification requires correlation with clinicalpresentation and with pending molecular and cytogenetic studies. 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 Normocytic anemia with anisocytosis;thrombocytopenia and neutropenia.BONE MARROW ASPIRATE Normal % (0-2) 39 % Blasts (1-5) 3 % Promyelo (32-72) 25 % Myelos/Metas/Bands/Segs (1-6) 0 % Eosinophils (0-1) 0 % Basophils (0-4) 2 % Monocytes (13-37) 25 % Erythroid precursors (7-23) 5 % Lymphocytes (0-2) 0 % Plasma cells Myeloid/Erythro (1.5-4): 2.8 Cells counted: 500 Iron stain result: Storage iron present; no ring sideroblasts. Specimen Quality: Spicular, cellular, adequate for evaluation. Megakaryocytes: Dysmegakaryopoiesis, with occasional small forms andforms with multiple nuclei. Erythropoiesis: Maturation, with dyserythropoiesis. Granulopoiesis: Full maturation. Other: Blasts are increased, with morphology as described in peripheralblood, except that Saroj rods are not as well characterized.BONE MARROW BIOPSY:Adequacy: Adequate.Cellularity: Increased (greater than 95%).ME ratio: Increased.Hematopoiesis: Increased mononuclear cells compatible with blasts, withdiminished maturing trilineage hematopoiesis.Megakaryocytes: Present.Megakaryocyte morphology: Some small forms and forms with multipleseparated nuclei are present.Lymphoid infiltrate: None.Bone trabeculae: Normal.CLOT SECTION:Marrow particles: Many.Morphology: Similar to biopsy.Cytochemistry stains performed on the aspirate smear (myeloperoxidase,nonspecific esterase) show that a significant population of blasts ispositive for myeloperoxidase. Blasts are largely negative for non-specificesterase, and non-specific esterase positive cells represent less than 10%of cellularity..ANCILLARY TESTS:Flow cytometry: Performed on peripheral blood.Cytogenetics: Pending.FISH: PML/RARAMolecular: Buffy coat stored.DB/db 08/18/2018 Joseph James M.D.(Electronic Signature) SPECIMEN SUBMITTEDA: BONE MARROW, ASPIRATE LPIC B: BONE MARROW, BIOPSY LPIC C: BONE MARROW, CLOT LPIC ADDITIONAL PROCEDURE(S)CYTOGENETICS Date Ordered: 08/15/2018 Date Reported: PENDINGFISH for BCR/ABL1 Date Ordered: 08/15/2018 Date Reported: 08/18/2018 Procedure Results and InterpretationFISH for t(9;22) BCR/ABL1 RearrangementSample Type: Bone MarrowNumber of nuclei scored: 200 RESULT:Anomaly Result Reference Range BCR/ABL1 0% (0-2%)INTERPRETATION:A BCR/ABL1 rearrangement was not detected. Quantitative RT-PCR studies aresuggested for routine monitoring of minimal residual disease. Clinicalcorrelation is suggested.METHODOLOGY:The dual color, dual fusion BCR (22q11.2) and ABL1 (9q34) probe ([employer], [place], [place]) was used in this interphase FISH assay todetect the presence of the Ray chromosome. This test should not beused for the detection of minimal residual disease.Pathologist Interpretation: Dorothy Kraft M.D., PhD.ANALYTE SPECIFIC REAGENT (ASR) DISCLAIMERThis test was developed and its performance characteristics determined by[facility] Laboratory MedicineUniversity [facility] Centertitmore[facility] ([facility]). It has not been cleared or approved by the FDA.RT-PLMI is regulated under CLIA as qualified to perform high-complexitytesting. This test is used for clinical purposes. It should not be regardedas investigational or for research.MC/kg 08/18/2018Procedure Pathologist: Dorothy Kraft M.D., Ph.D.Electronic SignatureBCR-ABL QUALITATIVE MULTIPLEX RT-PCR Date Ordered: 08/15/2018 Date Reported: 08/23/2018 Procedure Results and InterpretationBCR/ABL1 RT-PCR, QUALITATIVESpecimen type: Bone marrowResult: BCR/ABL1 fusion transcripts are NOT DETECTEDInterpretation: RT-PCR studies are negative for BCR/ABL1 fusiontranscripts. For more sensitive residual disease detection in patientswith a history of BCR/ABL1 positive chronic myeloid leukemia or acutelymphoblastic leukemia, please order BCR/ABL1 p210 RT-PCR, Quantiative orBCR/ABL1 p190 RT-PCR, Quantitative. Methodology: RNA was purified from this sample, and cDNA prepared byreverse professor of philosophy. Multiplex RT-PCR studies were performed usingfluorescently labeled primers for BCR/ABL1 fusion transcripts [id number] (e13a2, e14a2, e13a3, e14a3), p190 (e1a2, e1a3), p230 (e19a2) and p3t3mhwtrbxp. As an amplification control, primers for wild-type BCR are alsoincluded. PCR products are analyzed by capillary electrophoresis. Thelimit of detection of this assay is approximately 1% BCR/ABL1 normalizedcopy numbers (BCRABL1/ABL1). This test was developed and its performance characteristics determined by[facility] Laboratory Medicine [place]([facility]). It has not been cleared or approved by the FDA. [facility] isregulated under CLIA as qualified to perform high-complexity testing. Thistest is used for clinical purposes. It should not be regarded asinvestigational or for research.As Reviewed by: Danny Stubbs 08/21/2018Procedure Pathologist: Dorothy De Oliveira M.D..Electronic SignatureHN FLT3 ITD Mutation Analysis Date Ordered: 08/15/2018 Date Reported: 08/18/2018 Procedure Results and InterpretationSample Type: Bone MarrowResultFLT3 internal tandem duplication (ITD) mutation: NOT DETECTEDComment: FLT3/ITD is found in ~20-30% of adult patients and in ~5-12% of infantsand children with acute myeloid leukemia (AML). FLT3/ITD are most oftenassociated with a normal karyotype, t(15;17), and t(6;9). FLT3/ITD isassociated with leukocytosis and a poor prognosis in both children andadults. In cytogenetically normal AML, FLT3/ITD has been associated with apoor prognosis. FLT3 mutation status has been reported to change betweendiagnosis and relapse; this may relate to the instability of [id number].Method:DNA is isolated from the specimen provided. Regions of the FLT3 tyrosinekinase receptor gene are subjected to the polymerase chain reaction (PCR)using fluorescently labeled forward PCR primers. PCR products are analyzedby capillary gel electrophoresis for in-frame length mutations (ITDmutations). This assay can detect ITD mutant alleles which represent~5-10 % of the total alleles. The ITD ratio is calculated as the areaunder the curve of the ITD signal to the area under the curve of the wildtype signal. Limitations: Due to the diversity of potential ITD mutations, standardizedcalibration material is not available and calculated ITD peak ratios maytherefore not be directly comparable across laboratories. As PCRefficiency varies with the size of the insertion mutation, calculated peakratios may not necessarily correlate with percentage of mutant alleles. ITDratio information should be interpreted with caution, in conjunction withother cytogenetic and molecular findings to assess prognosis within myeloidneoplasms. As Reviewed by: Danny [place] 08/18/2018References:1. Lolita MP, Sonido P, Juliocesar E, et al. Mutational landscape of AMLwith normal cytogenetics: biological and clinical implications. BloodRev.2013;27:13-22.2. Mistry AARON, G?wilder M, Devendra ME, et al. Prognostic relevance ofintegrated genetic profiling in acute myeloid leukemia. N Engl J Med. 2011Mar 22;366 (12):1079-89.3. Matheus Charles, Carl E, Radha Marroquin,. et al. Diagnosis and management of AMLin adults: 2017 ELN recommendations from an international expert panel. Blood 129, 966622 (2017).This test was developed and its performance characteristics determined by[facility] It has not been cleared or approved by the FDA.[facility] is regulated under CLIA as qualified to perform high-complexitytesting. This test is used for clinical purposes. It should not be regardedas investigational or for research.Procedure Pathologist: Dorothy De Oliveira M.D..Electronic SignatureFISH FOR PML/ROBERT Date Ordered: 08/15/2018 Date Reported: 08/18/2018 Procedure Results and InterpretationFISH for t(15;17) PML/Robert TranslocationSample Type: Bone MarrowNumber of nuclei scored: 200RESULT: Anomaly Result Reference Range (Bone marrow)PML/ROBERT 0% (0-3%)INTERPRETATION:Interphase fluorescence in situ hybridization studies are negative for aPML/ROBERT rearrangement. METHODOLOGY: The dual color dual fusion PML (15q22) and ROBERT (17q21) probes([employer], [place], [place]) were used in this interphase FISH assayto detect the presence of the t(15;17) chromosome translocation. Thisresult does not exclude and should not be used for detection of minimalresidual disease.Pathologist Interpretation: Dorothy Kraft M.D., PhD.ANALYTE SPECIFIC REAGENT (ASR) DISCLAIMERThis test was developed and its performance characteristics determined by[facility] MedicineIn[facility] ([facility]). It has not been cleared or approved by the FDA.[facility] is regulated under CLIA as qualified to perform high-complexitytesting. This test is used for clinical purposes. It should not be regardedas investigational or for research.MC/kg 08/18/2018Procedure Pathologist: Dorothy Kraft M.D., Ph.D.Electronic Signature CLINICAL DATAACUTE LEUKEMIAGROSS DESCRIPTIONA. Received are air-dried bone marrow aspirate smears. Submitted for lightmicroscopy.B. Received in zinc formalin are three segments of cylindrical tissueaggregating to 2.7 x 0.2 x 0.2 cm, delarosa-red and of a firm consistency.Totally submitted in formalin in one cassette after decalcification.C. Received in zinc formalin are multiple segments of red, hemorrhagicmaterial aggregating to 3.0 x 2.2 x 0.6 cm. Totally submitted in onecassette.Gross examination performed at [facility], [address] [place] [address] 08/16/2018 12:53:58 AMPatient ID #: [id number] of Report: 08/19/2018Date of Procedure: 08/15/2018Date of Receipt: 08/15/2018Submitted by: HORACE HOANG MDLocation: [id number] interpretation performed at [facility], [address] [place] [address]. CHROMOSOME BM Collected: 08/15/2018 Status: F Source: [place] 11:05 AM [facility] REPOSITORY TYPE CODE TESTS RESULT OUT OF REFERENCE UNITS RANGE LAB CRBM Chromosome Analysis (NOTE) Result Comment: Performing Pathologist: Dr. 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 No normal cells were found. 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 The presence of an abnormal clone is consistent with a neoplastic process. Deletions involving the long arm of chromosome 7 have been associated with myelodysplastic syndromes and acute myeloid leukemia. As the sole abnormality in myelodysplastic syndromes, a 7q deletion is associated with an intermediate prognostic subgroup with a cytogenetic score of 2 in the IPSS-R for myelodysplastic syndromes. In acute myeloid leukemia, a 7q deletion would qualify for classification as acute myeloid leukemia with myelodysplasia-related changes in the current WHO classification. Pathologist Interpretation: Shant Ledesma MD Performed by [facility], [address] [place] [address] Toll free: Performed By: #### CHRBMH #### [facility] [address] [place], [place] [address] HEM NEPL NGS PNL Collected: 08/15/2018 Status: F Source: [place] BM 11:05 AM [facility] REPOSITORY TYPE CODE TESTS RESULT OUT OF REFERENCE UNITS RANGE LAB HNMNG Hem (NOTE) Jonah NGS Pnl BM Result Comment: Please see linked document for full results. Performed By: #### HNMNGS #### [place] [address] [place], [place] [address] B-ALL FUS DET PANEL Collected: 08/15/2018 Status: F Source: [place] 11:05 AM [facility] REPOSITORY TYPE CODE TESTS RESULT OUT OF REFERENCE UNITS RANGE LAB ALLFUS Cancelled BALLFP, by clinician Interp Result Comment: Per performing lab. AR Account Credited Performed By: #### BALLFP #### [place] [id number] [place] [id number] NURSING PROG Observed: 08/15/2018 Status: COMPLETED Source: [place] 10:53 AM [facility] REPOSITORY HNO ID: [id number]: Sharon (Rn) LORNA Wardervice: (none)Author Type: Registered NurseType: Nursing Progress NoteFiled: 08/15/2018 10:54 AMNote Text: Nursing Progress NotePatient Name: Tari BlackMRN: [id number] Location: [place] [id number] Rysto Note:1030: pt c/o distention, urgency to void and discomfort. Prior to BMBx,this RN along with RN Sarina goodwined pt. Pt's output was 700cc. Willcontinue to monitor.This note was completed by: Sharon Ward RN NUTRITION Observed: 08/15/2018 Status: COMPLETED Source: [place] 9:25 AM [facility] [place] REPOSITORY HNO ID: [id number]: Mechelle Ho) EscuroService: Nutrition TherapyAuthor Type: Registered DietitianType: NutritionFiled: 08/15/2018 12:46 PMNote Text:NUTRITION THERAPY INITIAL ASSESSMENTSERVICE DATE: 08/15/2018SERVICE TIME: 929RECOMMENDED MALNUTRITION DIAGNOSIS: NO MALNUTRITION IDENTIFIEDNUTRITION CARE PLAN:Problem, Etiology and Signs/Symptoms:Suboptimal oral intake related to illness as evidenced by reports ofinsufficient oral intake over the past 3 weeks.Intervention:Continue Regular dietProvide Ensure Enlive x 1 daily .Check acceptance.Monitor oral intakesMonitor and Evaluation:Goal: Meet >75% of estimated needsMonitor fluid/electrolyte balanceMonitor labs, I/Os, vital signs, weightDischarge Nutrition Recommendations:Diet: RegularSupplements: patient's preferencePer HPI: Patient is a 73 year old female admitted with concern for acuteleukemia. PMH: HTNCurrent Diet Order DIET REGULARLines and Drains:Peripheral 08/14/18 1630 Right Antecubital 22 Gauge (Active)Nutritional Intake Prior to Admission:<75% estimated energy needs over the past 3 week(s). Seen at bedside andreports decline in appetite over the past 3 weeks, eating smallerportions. Intermittent nausea but no vomiting. Current oral intake isfair--receptive to trial Ensure Enlive x 1 daily.GI symptoms: nauseaNutrition Abdominal Exam: and not assessedANTHROPOMETRICSHeight: 167.5 cm (5' 5.95) (verified by Piper HERNANDEZ)Admission Weight: 97.1 kg (214 lb 1.1 oz) (verified by Piper HERNANDEZ)Current Weight: 96.5 kg (212 lb 11.9 oz)Body mass index is 34.4 kg/m?. class 2 obesityWeight has decreased by 3 kg over 3 weeks representing 3 % weight changepotentially clinically significant but does not meet criteria to support amalnutrition diagnosisLast Wt08/15/18 : 96.5 kg (212 lb 11.9 oz)Dosing Weight: 96.5 kgIdeal weight: 59 kgResting Metabolic Rate: 1480Estimated kilocalorie needs: 9876-7687 kilocalories determined by 15-20kcal/kg dosing wt/dEstimated protein needs: 90 grams determined by 1.5 g/kg Dosing weightEstimated fluid needs: 4867-4455 milliliters based on 1 mL per kcalNUTRITION FOCUSED PHYSICAL EXAM:Subcutaneous Fat LossOrbital No fat lossTriceps No fat lossMid-axillary at the iliac crest No fat lossMuscle Loss Locations:Temporalis No muscle lossPectoralis No muscle lossDeltoids No muscle lossInterosseous No muscle lossLatissimus dorsi, trapezius No muscle lossQuadriceps No muscle lossGastrocnemius No muscle lossPotential micronutrient deficiency revealed in: No deficiency identifiedEdema: Yes Lower extremities Mild 1+Ascites: NoAssessment of Functional Status: Functional capacity is unrelated tonutrition statusTemperature Max in 24 hours: Temp (24hrs), Av ?C (98.6 ?F), Min:36.8?C (98.2 ?F), Max:37.2 ?C (99 ?F) BP 124/56 Pulse 95 Temp 36.8 ?C (98.2 ?F) (Oral) Resp 16 Ht167.5 cm (5' 5.95) Wt 96.5 kg (212 lb 11.9 oz) SpO2 96% BMI34.40 kg/m?Recent Labs GLUC 129*BUN 14CREAT 0.72NA 138K 4.3CHLOR 102CO2 25ALB 3.8*P 2.5*HB 7.2*HCT 20.8*WBC 7.11Potential Signs of Inflammation: chronic conditionALLERGIESNo Known AllergiesCurrent Facility-Administered Medications:oxyCODONE IR 5-10 mg tab(s) (ROXICODONE) 5-10 mg ORAL q 4 H PRNlisinopril 20 mg tab(s) (ZESTRIL, PRINIVIL) 20 mg ORAL DAILYallopurinol 300 mg tab(s) (ZYLOPRIM) 300 mg ORAL DAILYacyclovir 400 mg tab(s) (ZOVIRAX) 400 mg ORAL BIDpotassium chloride iv piggyback 20 mEq/100 mL 20 mEq INTRAVENOUS PRNOrpotassium chloride ER 40-60 mEq tab(s) (K-DUR, KLOR-CON) 40-60 mEq ORALDAILY PRNmagnesium sulfate in sterile water 4 g iv piggyback 4 g INTRAVENOUS PRNsalt and soda 10 mL oral liquid 10 mL ORAL QIDnystatin 5 mL CUP (MYCOSTATIN) 5 mL ORAL AGAfhfyfytihjBYUWT-wwbhbw-kjsjgydta 10 mL oral liquid (BMX 1:1:1) 10 mL ORALq 4 H PRN0.9% NaCl 3-5 mL 3-5 mL INTRAVENOUS q 12 Hacetaminophen 650 mg tab(s) (TYLENOL) 650 mg ORAL q 4 H PRNdiphenhydrAMINE 25 mg (BENADRYL) 25 mg ORAL q 6 H PRNNaCl 0.9% iv infusion 125 mL/hr INTRAVENOUS CONTINUOUSondansetron (PF) 8 mg injection (ZOFRAN) 8 mg INTRAVENOUS q 8 H PRNlactulose 20 g CUP (DUPHALAC, CONSTULOSE) 20 g ORAL BIDDate 08/14/18 0700 - 08/15/18 0659 08/15/18 07 - 08/16/18 0659ift 1859-5426 4446-1767 8805-7940 24 Hour Total 4600-6557 4692-28440286-6179 24 Hour TotalINTAKE PO 120 120 PO 120 120 Supplements (mL) 0 0 IV 1000 1000 990 990 NS 0.9% 1000 1000 990 990 Blood Products 1 1 Packed Red Blood Cells Number of Units 1 1 Other Amount Wasted PRBC 0 mL 0 mL Shift Total 1000 1000 1111 1111OUTPUT Urine 975 975 900 900 Void (ml) 975 975 200 200 Straight cath (ml) 700 700 Emesis 0 0 Emesis (ml) 0 0 # of BMs Number of BMs 0 x 0 x 0 x 0 x Shift Total 975 975 900 900Weight (kg) 97.1 97.1 97.1 97.1 96.5 96.5 96.5 96.5Vitamin and Mineral Labs in the past year:No results for input(s):CHROMIUM, COPPER, MANGANESE, SELENIUM, VITAMINA, VITB1, VITB2, VITB6, B12,METHYLMAL, VITD25, VITAMINE, VITAK, ZINC, TIBC, FE, KAL in the last 8784hours.MNT Billing Type: Initial Assess/15 min 4 unitsSIGNATURE: Mechelle Paredes, MS RD LD CNSC FAND PATIENT NAME: Tari SacnhezTE: August 15, 2018 : 9:25 AM PAGER: [phone] PROGRESS Observed: 08/15/2018 Status: COMPLETED Source: [place] 7:44 AM [facility] [place] REPOSITORY HNO ID: [id number]: Horace Reinarvice: Hematology/OncologyAuthor Type: PhysicianType: Progress NotesFiled: 08/15/2018 2:08 PMNote Text:ONCOLOGY LEUKEMIA PROGRESS NOTESERVICE DATE: 08/15/2018SERVICE TIME: 1000SubjectiveINTERIM HISTORY- Afebrile; VSS- BMBX todayREVIEW OF SYSTEMSGENERAL: No fever or chills.HEENT: + intermittent headaches; No nose bleed, mouth pain or sore throat.RESPIRATORY: No cough or shortness of breath.CARDIOVASCULAR: No chest pain, palpitations or leg swelling.GI: Eating, drinking and taking pills adequately; no difficultyswallowing, abdominal discomfort, blood in stools, black stools ordiarrhea; + rectal painGU: No discomfort with voiding or gross blood in urine.MUSCULOSKELTAL: No pain.SKIN: No rash or itching.VENOUS ACCESS: Peripheral. No concerns.ObjectivePHYSICAL EXAMVITALS: Temp (24hrs), Av.1 ?C (98.7 ?F), Min:36.8 ?C (98.3 ?F),Max:37.2 ?C (99 ?F) BP 100/52 Pulse 91 Temp 37.3 ?C (99.2 ?F) (Oral) Resp 16 Ht167.5 cm (5' 5.95) Wt 96.5 kg (212 lb 11.9 oz) SpO2 97% BMI34.40 kg/m?INTAKE AND OUTPUTIntake/Output Summary (Last 24 hours) at 08/15/18 1329Last data filed at 08/15/18 1136 Gross per 24 hourIntake 2111 mlOutput 1875 mlNet 236 mlGENERAL: No acute distress; alert and oriented x 3.HEENT: No mucositis.LUNGS: Clear to auscultation; no wheezing, rhonchi or rales.HEART: Regular rhythm; normal rate; no murmur.ABDOMEN: Bowel sounds present; soft, non-tender and not distended.EXTREMITIES: No edema.SKIN: No rash.VENOUS ACCESS: No erythema, tenderness or drainage.MEDICATIONSCurrent hospital medications:oxyCODONE IR 5-10 mg tab(s) (ROXICODONE) 5-10 mg ORAL q 4 H PRNlisinopril 20 mg tab(s) (ZESTRIL, PRINIVIL) 20 mg ORAL DAILYallopurinol 300 mg tab(s) (ZYLOPRIM) 300 mg ORAL DAILYacyclovir 400 mg tab(s) (ZOVIRAX) 400 mg ORAL BIDpotassium chloride iv piggyback 20 mEq/100 mL 20 mEq INTRAVENOUS PRNpotassium chloride ER 40-60 mEq tab(s) (K-DUR, KLOR-CON) 40-60 mEq ORALDAILY PRNmagnesium sulfate in sterile water 4 g iv piggyback 4 g INTRAVENOUS PRNsalt and soda 10 mL oral liquid 10 mL ORAL QIDnystatin 5 mL CUP (MYCOSTATIN) 5 mL ORAL KZEaejgvfobywENLNF-gmgkdf-zdebibdoj 10 mL oral liquid (BMX 1:1:1) 10 mL ORALq 4 H PRN0.9% NaCl 3-5 mL 3-5 mL INTRAVENOUS q 12 Hacetaminophen 650 mg tab(s) (TYLENOL) 650 mg ORAL q 4 H PRNdiphenhydrAMINE 25 mg (BENADRYL) 25 mg ORAL q 6 H PRNNaCl 0.9% iv infusion 125 mL/hr INTRAVENOUS CONTINUOUSondansetron (PF) 8 mg injection (ZOFRAN) 8 mg INTRAVENOUS q 8 H PRNlactulose 20 g CUP (DUPHALAC, CONSTULOSE) 20 g ORAL BIDLABORATORY DATARecent Labs 08/14/1821WBC 7.11 7.04 7.62RBC 2.22* 2.28* 2.44*HB 7.2* 7.5* 7.7*HCT 20.8* 21.6* 22.9*PLT 22* 25* 25*MCV 93.7 94.7 93.9MCH 32.4 32.9 31.6MCHC 34.6 34.7 33.6RDWCV 17.9* 17.8* 18.0*MPV 11.1 10.7 11.5NEUTP 3.5 3.0 3.0ABSNEUT 0.25* 0.21* 0.23*ABLAST 67.3* 58.0* 67.0*LYMPHP 29.2 39.0 30.0MONOP 0.0 0.0 0.0EODINP 0.0 0.0 0.0BASOP 0.0 0.0 0.0ABSMONO 0.00 0.00 0.00ABSEOSIN 0.00 0.00 0.00ABSBASO 0.00 0.00 0.00Recent Labs 08/15/1804NA -- 138 134* 135*K -- 4.3 4.5 5.5*CHLOR -- 102 100 101CO2 -- 25 23 24CREAT -- 0.72 0.79 0.76BUN -- 14 16 16GLUC -- 129* 192* 120*P -- 2.5* 2.1* 2.8TPROT -- 6.9 6.8 7.2ALB -- 3.8* 3.9 4.2CA -- 10.0 9.8 10.4*ALKPHOS -- 64 65 61TBILI -- 1.3 1.3 1.5*AST -- 19 17 51*ALT -- 14 14 17URICACID -- 4.0 4.6 4.9PTSEC 10.8 -- -- 10.8INR 1.0 -- -- 1.0APTT 23.8 25.1 23.9 22.0*CULTURESIMAGINGPROCEDURESDATA:Diagnostic tests reviewed for today's visit:Most recent labs and imaging results.Assessment/PlanActive Hospital Problems Diagnosis Date Noted- Pancytopenia (HCC) 08/14/2018 Priority: A Overview Note: Tari Black is a 73 year old female with PMH of HTN and arthritis beingadmitted due to concern for acute leukemia after going to her PCP forupset stomach, headaches, and fatigue (CBC showing pancytopenia).- CXR No acute findings, EKG NSR- mIVF, allopurinol, TLS labs q 8 hours- Plan for bone marrow biopsy today 08/15 (10 AM)- Transfuse LR + IR blood products for Hgb <8; Plt <10- Transfuse RBCs today 08/15/2018- Headache Priority: B Overview Note: - CT brain 08/14- Negative for acute findings- PRN oxy- Nausea Priority: C Overview Note: - Zofran PRN- Immunodeficiency (HCC) 08/14/2018 Priority: D Overview Note: - ppx acyclovir- HTN (hypertension) 08/14/2018 Priority: E Overview Note: - Continue home lisinopril- Electrolyte imbalance risk Priority: F Overview Note: - Replete electrolytes per protocol- mIVF NS @ 100cc/hr- Anemia Priority: G Overview Note: Secondary to suspected acute leukemia- Transfuse LR + IR blood products for Hgb < 8- Transfuse RBCs today 08/15/2018- Thrombocytopenia (HCC) Priority: H Overview Note: Secondary to suspected acute leukemia- Transfuse LR + IR blood products for PLT <10- Rectal pain Priority: I Overview Note: Rectal pain x 3 days per patient- No visible signs of hemorrhoids or skin breakdown- Colorectal Surg consulted; Appreciate recs- PRN oxy- Hospital discharge follow-up Overview Note: - Following Dr DohertyeMedication and Non-Pharmacologic VTE Prophylaxis/Kuwdtoxqwobluq07/27/18 1515 vte pharmacologic prophylaxis contraindicated (fl,oh)08/14/18 1515 vte non-pharmacologic prophylaxis contraindicated (fl,oh)08/14/18 1515 activity - mobilize patient (fl,oh)SIGNATURE: Harini Cassidy APRN.CNP PATIENT NAME: Tari BlackDATE: August 15, 2018 : 7:44 AM PAGER/CONTACT #: [phone]/MEDICAL ONCOLOGY STAFF:TEACHING PHYSICIAN NOTE OF PERSONAL INVOLVEMENT IN CAREI have reviewed the progress note obtained and documented by the licensedindependent practitioner and I personally participated in the keycomponents. I have discussed the case and management of the patient's carewith the licensed independent practitioner. The following comments reviseor confirm relevant murphy components of the licensed independentpractitioner's note.IMPRESSION/PLAN: Suspected acute leukemia. Patient admitted for inductionchemotherapy. The [facility] conducts standardquality assurance validation for all diagnosed patients new to the cancerinstitute and this will also be performed during this admission. Had BMBxtoday. Flow cytometry results awaited. Supportive care and transfusionsupport.?Horace Hoang MD PhD MPHAssociate StaffHematologic Oncology and Blood DisordersPager [phone] of service: 08/15/2018 FIBRINOGEN Collected: 08/15/2018 Status: F Source: [place] 4:27 AM [facility] REPOSITORY TYPE CODE TESTS RESULT OUT OF REFERENCE UNITS RANGE LAB FIBCT High 200-400 mg/dL Fibrinogen 450 Performed By: #### FIBCT, PTT, LD6, CMP, PHOS, URIC, CBCDIF #### [facility] [address] [place], [place] [address] APTT Collected: 08/15/2018 Status: F Source: [place] 4:27 AM [facility] REPOSITORY TYPE CODE TESTS RESULT OUT OF RANGE REFERENCE UNITS LAB APTT 23.0-32.4 sec APTT 25.1 Result Comment: Unfractionated Heparin Therapeutic Ranges: Standard Heparin Nomogram: 53 to 78 seconds (anti-Xa level of 0.3 to 0.7 U/ml) Low Dose/ACS Nomogram: 49 to 67 seconds (anti-Xa level of 0.2 to 0.5 U/ml) Stroke Treatment Nomogram: 49 to 67 seconds (anti-Xa level of 0.2 to 0.5 U/ml) Note: The APTT therapeutic range has been determined for the current lot of laboratory APTT reagent in use throughout the [facility]. Performed By: #### FIBCT, PTT, LD6, CMP, PHOS, URIC, CBCDIF #### [facility] [address] [place], [place] [address] LD Collected: 08/15/2018 Status: F Source: [facility] 4:27 AM [facility] REPOSITORY TYPE CODE TESTS RESULT OUT OF RANGE REFERENCE UNITS LAB LD High 135-214 U/L LD 263 Performed By: #### FIBCT, PTT, LD6, CMP, PHOS, URIC, CBCDIF #### [facility] [address] [place], [place] [address] COMP METABOLIC PANEL Collected: 08/15/2018 Status: F Source: [place] 4:27 AM [facility] [place] REPOSITORY TYPE CODE TESTS RESULT OUT OF REFERENCE UNITS RANGE LAB TP 6.3-8.0 g/dL Protein, Total 6.9 LAB ALB Low 3.9-4.9 g/dL Albumin 3.8 LAB CA 8.5-10.2 mg/dL Calcium, Total 10.0 LAB TBIL 0.2-1.3 mg/dL Bilirubin, 1.3 Total LAB ALKP 34-123 U/L Alkaline 64 Phosphatase LAB AST 13-35 U/L AST 19 LAB GLU High 74-99 mg/dL Glucose 129 Result Comment: The [place] Diabetes Association (ADA) provides guidance for cutoff values for fasting glucose and r andom glucose. The ADA defines fasting as no caloric intake for at least 8 hours. Fasting plasma glucose results between 100 to 125 mg/dL indicate increased risk for diabetes (prediabetes). Fasting plasma glucose results greater than or equal to 126 mg/dL meet the criteria for diagnosis of diabetes. In the absence of unequivocal hyperglycemia, results should be confirmed by repeat testing. In a patient with classic symptoms of hyperglycemia or hyperglycemic crisis, random plasma glucose results greater than or equal to 200 mg/dL meet the criteria for diagnosis of diabetes. Reference: Standards of Medical Care in Diabetes 2016, [place] [employer] Association. Diabetes Care. 2016.39(Suppl 1). LAB BUN 7-21 mg/dL BUN 14 LAB CRET 0.58-0.96 mg/dL Creatinine 0.72 LAB NA 136-144 mmol/L Sodium 138 LAB K 3.7-5.1 mmol/L Potassium 4.3 LAB CL 97-105 mmol/L Chloride 102 LAB CO2 22-30 mmol/L CO2 25 LAB AGAP 9-18 mmol/L Anion Gap 11 LAB ALT 7-38 U/L ALT 14 LAB GFRAA eGFR- >60 Amer. LAB GFRNAA . eGFR-All Other >60 Races Result Comment: eGFR (Estimated GFR) Units of measure: mL/min/1.73 meters squared eGFR is derived from the reexpressed MDRD Study equation using the following parameters: serum creatinine, age, gender and race. The creatinine assay has been calibrated to be traceable to IDMS. An eGFR <60 mL/min/1.73m2 for >3 months is consistent with chronic kidney disease. Refer to KDOQI guidelines for clinical interpretation. In patients with unstable renal function, e.g. those with acute kidney injury, the eGFR may not accurately reflect actual GFR. Performed By: #### FIBCT, PTT, LD6, CMP, PHOS, URIC, CBCDIF #### [facility] [address] [place], [place] [address] PHOSPHORUS Collected: 08/15/2018 Status: F Source: [place] 4:27 AM [facility] REPOSITORY TYPE CODE TESTS RESULT OUT OF REFERENCE UNITS RANGE LAB PHOS Low 2.7-4.8 mg/dL Phosphorus 2.5 Performed By: #### FIBCT, PTT, LD6, CMP, PHOS, URIC, CBCDIF #### [facility] [address] [place], [place] [address] URIC ACID Collected: 08/15/2018 Status: F Source: [place] 4:27 [facility] REPOSITORY TYPE CODE TESTS RESULT OUT OF RANGE REFERENCE UNITS LAB URIC 2.5-6.6 mg/dL Uric 4.0 Acid Performed By: #### FIBCT, PTT, LD6, CMP, PHOS, URIC, CBCDIF #### [facility] [address] [place], [place] [address] CBC AND DIFFERENTIAL Collected: 08/15/2018 Status: F Source: [place] 4:27 AM [facility] REPOSITORY TYPE CODE TESTS RESULT OUT OF REFERENCE UNITS RANGE LAB WBC 3.70-11.00 k/uL WBC 7.11 LAB RBC Low 3.90-5.20 m/uL RBC 2.22 LAB HGB Low 11.5-15.5 g/dL Hemoglobin 7.2 LAB HCT Low 36.0-46.0 % Hematocrit 20.8 LAB MCV 80.0-100.0 fL MCV 93.7 LAB MCH 26.0-34.0 pG MCH 32.4 LAB MCHC 30.5-36.0 g/dL MCHC 34.6 LAB RDWCV High 11.5-15.0 % RDW-CV 17.9 LAB PLTCT Low 150-400 k/uL Platelet 22 Count Result Comment: Result checked and verified No clot detected. LAB MPV 9.0-12.7 fL MPV 11.1 LAB ANEUT % Neut% 3.5 LAB AANEUT Low 1.45-7.50 k/uL Abs Neut 0.25 LAB ALYMP % Lymph% 29.2 LAB AALYMP 1.00-4.00 k/uL Abs Lymph 2.08 LAB AMONO % [place]% 0.0 LAB AAMONO <0.87 k/uL Abs [place] 0.00 LAB AEOS % Eosin% 0.0 LAB AAEOS <0.46 k/uL Abs Eosin 0.00 LAB ABASO % Baso% 0.0 LAB AABASO <0.11 k/uL Abs Baso 0.00 LAB ABLAST High 0 % Blast% 67.3 LAB ANIIMI Anisocytosis Present LAB AUEIMI Saroj Rods Present LAB OVAIMI Ovalocytes Few LAB PLTEST Platelet Estimate Platelet estimate decreased LAB DTYP DTYPE Manual Diff Performed By: #### FIBCT, PTT, LD6, CMP, PHOS, URIC, CBCDIF #### [facility] [address] [place] [address] SURGICAL PATHOLOGY Observed: 08/15/2018 Status: F Source: [place] 12:00 AM [facility] [place] REPOSITORY PROCEDURE REPORTSpecimen originated from [facility]pecimen #: [id number] Physician: HARINI CASSIDY CNPSPECIMEN SUBMITTEDA: PERIPHERAL BLOOD PROCEDURE(S)FLOW CYTOMETRY - ACUTE LEUKEMIA IMMUNOPHENOTYPING Date Ordered: 08/15/2018 Date Reported: 08/15/2018 Procedure Results and InterpretationSpecimen type: Peripheral bloodCBC (08/14/2018): WBC = 7.62 k/uL; Hgb = 7.7 g/dL; Plt = 29 k/uLDifferential (%): Neutrophil: 3; Lymphocyte: 30; Monocyte: 0; Eosinophil:0; Basophil: 0; Blast: 67 Morphology comments: Normocytic anemia with anisocytosis and ovalocytes. Thrombocytopenia. Neutropenia with increased circulating blasts. Blastsare intermediate in size with round to irregular nuclear borders, finechromatin, scant to moderate cytoplasm, and identifiable nucleoli. Auerrods are identified. Results: % total eventsLymphocyte gate: 22Granulocytic gate: 3Monocytic gate: 0Blast gate: 73Viability: 100%Marker Normal Cell Result (Blast) Type CD2 T/NK cells NegativeCD3 T-cells NegativeCD4 T-cell subset NegativeCD5 T-cells NegativeCD7 T/NK-cells NegativeCD8 T-cell subset WnmoivcvKO72 B-cell subset TxdkradaYN73r Myeloid PuexkyxvEJ02 Myeloid CfnnflutNU78 Monocyte JwadfndfRF63 Myeloid DkbpswdzTL26 T/NK cell WpphdfeyXQ09 B-cell EtjbvxoiUU66 B-cell SidvqtxxQL96 B-cell DotwtsemEV10 Myeloid DukxceteFK22 Blast HaacmnweDT79 Activation KjbiligiHY15 Winters-leukocyte BydcfqixYB42 Myeloid Positive (dim)CD65 Myeloid SikilkgkMH401 Blast PositiveHLADR Class II MHC Positive (dim)Interpretation:Flow cytometric analysis of the peripheral blood reveals that 73% of totalevents have the CD45 and side-scatter properties of blasts. 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 Correlation with the clinical and marrow morphologic findings issuggested.ANALYTE SPECIFIC REAGENT (ASR) DISCLAIMERThis test was developed and its performance characteristics determined by[facility] ([facility]). It has not been cleared or approved by the FDA.RT-PLMI is regulated under CLIA as qualified to perform high-complexitytesting. This test is used for clinical purposes. It should not be regardedas investigational or for research.Procedure Pathologist: Joseph James M.D.Electronic SignatureCLINICAL DATANone provided. GROSS DESCRIPTIONRECEIVED A 2 ML EDTA TUBE OF PERIPHERAL BLOOD LABELED TARI BLACK. ENTIRELYSUBMITTED FOR FLOW CYTOMETRY. of Report: Date of Procedure: 08/15/2018Date of Receipt: 08/15/2018Submitted: HARINI CASSIDY, CNPDiagnostic interpretation performed at [facility], [address] [place], [place] [id number]. FIBRINOGEN Collected: 08/14/2018 Status: F Source: [place] 9:30 PM [facility] REPOSITORY TYPE CODE TESTS RESULT OUT OF REFERENCE UNITS RANGE LAB FIBCT High 200-400 mg/dL Fibrinogen 438 Performed By: #### FIBCT, PTT, CMP, PHOS, URIC, CBCDIF #### [place] [address] APTT Collected: 08/14/2018 Status: F Source: [place] 9:30 [facility] REPOSITORY TYPE CODE TESTS RESULT OUT OF RANGE REFERENCE UNITS LAB APTT 23.0-32.4 sec APTT 23.9 Result Comment: Unfractionated Heparin Therapeutic Ranges: Standard Heparin Nomogram: 53 to 78 seconds (anti-Xa level of 0.3 to 0.7 U/ml) Low Dose/ACS Nomogram: 49 to 67 seconds (anti-Xa level of 0.2 to 0.5 U/ml) Stroke Treatment Nomogram: 49 to 67 seconds (anti-Xa level of 0.2 to 0.5 U/ml) Note: The APTT therapeutic range has been determined for the current lot of laboratory APTT reagent in use throughout the [facility]. Performed By: #### FIBCT, PTT, CMP, PHOS, URIC, CBCDIF #### [place] [address] COMP METABOLIC PANEL Collected: 08/14/2018 Status: F Source: [place] 9:30 [facility] REPOSITORY TYPE CODE TESTS RESULT OUT OF REFERENCE UNITS RANGE LAB TP 6.3-8.0 g/dL Protein, Total 6.8 LAB ALB 3.9-4.9 g/dL Albumin 3.9 LAB CA 8.5-10.2 mg/dL Calcium, Total 9.8 LAB TBIL 0.2-1.3 mg/dL Bilirubin, 1.3 Total LAB ALKP 34-123 U/L Alkaline 65 Phosphatase LAB AST 13-35 U/L AST 17 LAB GLU High 74-99 mg/dL Glucose 192 Result Comment: The [place] Diabetes Association (ADA) provides guidance for cutoff values for fasting glucose and r andom glucose. The ADA defines fasting as no caloric intake for at least 8 hours. Fasting plasma glucose results between 100 to 125 mg/dL indicate increased risk for diabetes (prediabetes). Fasting plasma glucose results greater than or equal to 126 mg/dL meet the criteria for diagnosis of diabetes. In the absence of unequivocal hyperglycemia, results should be confirmed by repeat testing. In a patient with classic symptoms of hyperglycemia or hyperglycemic crisis, random plasma glucose results greater than or equal to 200 mg/dL meet the criteria for diagnosis of diabetes. Reference: Standards of Medical Care in Diabetes 2016, [place] Diabetes Association. Diabetes Care. 2016.39(Suppl 1). LAB BUN 7-21 mg/dL BUN 16 LAB CRET 0.58-0.96 mg/dL Creatinine 0.79 LAB NA Low 136-144 mmol/L Sodium 134 LAB K 3.7-5.1 mmol/L Potassium 4.5 LAB CL 97-105 mmol/L Chloride 100 LAB CO2 22-30 mmol/L CO2 23 LAB AGAP 9-18 mmol/L Anion Gap 11 LAB ALT 7-38 U/L ALT 14 LAB GFRAA eGFR- Amer. >60 LAB GFRNAA . eGFR-All Other Races >60 Result Comment: eGFR (Estimated GFR) Units of measure: mL/min/1.73 meters squared eGFR is derived from the reexpressed MDRD Study equation using the following parameters: serum creatinine, age, gender and race. The creatinine assay has been calibrated to be traceable to IDMS. An eGFR <60 mL/min/1.73m2 for >3 months is consistent with chronic kidney disease. Refer to KDOQI guidelines for clinical interpretation. In patients with unstable renal function, e.g. those with acute kidney injury, the eGFR may not accurately reflect actual GFR. Performed By: #### FIBCT, PTT, CMP, PHOS, URIC, CBCDIF #### [facility] [address] [place], [place] [id number] PHOSPHORUS Collected: 08/14/2018 Status: F Source: [place] 9:30 PM [facility] REPOSITORY TYPE CODE TESTS RESULT OUT OF REFERENCE UNITS RANGE LAB PHOS Low 2.7-4.8 mg/dL Phosphorus 2.1 Performed By: #### FIBCT, PTT, CMP, PHOS, URIC, CBCDIF #### [facility] [address] [place], [place] [address] URIC ACID Collected: 08/14/2018 Status: F Source: [place] 9:30 PM [facility] REPOSITORY TYPE CODE TESTS RESULT OUT OF RANGE REFERENCE UNITS LAB URIC 2.5-6.6 mg/dL Uric 4.6 Acid Performed By: #### FIBCT, PTT, CMP, PHOS, URIC, CBCDIF #### [address] [address] CBC AND DIFFERENTIAL Collected: 08/14/2018 Status: F Source: [place] 9:30 PM [facility] REPOSITORY TYPE CODE TESTS RESULT OUT OF REFERENCE UNITS RANGE LAB WBC 3.70-11.00 k/uL WBC 7.04 LAB RBC Low 3.90-5.20 m/uL RBC 2.28 LAB HGB Low 11.5-15.5 g/dL Hemoglobin 7.5 LAB HCT Low 36.0-46.0 % Hematocrit 21.6 LAB MCV 80.0-100.0 fL MCV 94.7 LAB MCH 26.0-34.0 pG MCH 32.9 LAB MCHC 30.5-36.0 g/dL MCHC 34.7 LAB RDWCV High 11.5-15.0 % RDW-CV 17.8 LAB PLTCT Low 150-400 k/uL Platelet 25 Count Result Comment: Result checked and verified Less than optimal volume of specimen received and tested. No clot detected. LAB MPV 9.0-12.7 fL MPV 10.7 LAB ANEUT % Neut% 3.0 LAB AANEUT Low 1.45-7.50 k/uL Abs Neut 0.21 LAB ALYMP % Lymph% 39.0 LAB AALYMP 1.00-4.00 k/uL Abs Lymph 2.75 LAB AMONO % [place]% 0.0 LAB AAMONO <0.87 k/uL Abs [place] 0.00 LAB AEOS % Eosin% 0.0 LAB AAEOS <0.46 k/uL Abs Eosin 0.00 LAB ABASO % Baso% 0.0 LAB AABASO <0.11 k/uL Abs Baso 0.00 LAB ABIMMG k/uL ANC(includeSEG+BA 0.21 ND) LAB ABLAST High 0 % Blast% 58.0 LAB ANIIMI Anisocytosis Present LAB OVAIMI Ovalocytes Few LAB PLTEST Platelet Estimate Platelet estimate decreased LAB DTYP DTYPE Manual Diff Performed By: #### FIBCT, PTT, CMP, PHOS, URIC, CBCDIF #### [facility] [address] [place], [place] [address] XR CHEST 2V FRONTAL/LAT Observed: 08/14/2018 Status: F Source: [place] 8:33 PM [facility] REPOSITORY * * *Final Report* * *DATE OF EXAM: Aug 14 2018 8:33PM [facility] 5291 - XR CHEST 2V FRONTAL/LAT / REASON: Leukemia * * * * Physician Interpretation * * * * EXAMINATION: CHEST RADIOGRAPH (2 VIEW FRONTAL and LATERAL)CLINICAL HISTORY: Leukemia,MQ: [id number]: NoneRESULT:Lines, tubes, and devices: None.Lungs and pleura: Lungs are hypoinflated with no consolidation or mass lesion. Prominence of the lung markings in the perihilar and basilar regions is likely secondary to crowded vessels, given the low lung volume. This could limit the evaluation for subtle interstitial or bronchial abnormalities, especially in the medial aspect of the bases. No pleural effusion or pneumothorax.Cardiomediastinal silhouette: Heart within normal. Thoracic aorta is mildly tortuous.Other: .IMPRESSION:As aboveTranscriptionist: PSCB Transcribe Date/Time: Aug 14 2018 10:28PDictated by : DINORAH MANCIA MDThifelix examination was interpreted and the report reviewed and electronically signed by: DINORAH MANCIA MD on Aug 14 2018 10:29PM [id number] CONFIRM BLOOD TYPE Collected: 08/14/2018 Status: F Source: [place] 6:00 PM [facility] REPOSITORY TYPE CODE TESTS RESULT OUT OF REFERENCE UNITS RANGE LAB %ABR O ABO/RH(D) NEGATIVE Performed By: #### CONABO #### [facility] [address] [place], [place] [address] NURSING PROG Observed: 08/14/2018 Status: COMPLETED Source: [place] 5:04 PM [facility] REPOSITORY HNO ID: [id number]: Piper (Rn) Jakob, RNService: (none)Author Type: Registered NurseType: Nursing Progress NoteFiled: 08/14/2018 6:53 PMNote Text: Nursing Progress NotePatient Name: Tari BlackMRN: [id number] Location: [place] [id number] [place] Note:1500: pt arrived on unit via wheelchair, stable condition, supportivefamily at bedside. Assessments complete per flow sheets.VSS, height andweight verified with GISELLE Spivey. Pt oriented to room and unit. Fallsrisk assessment and plan complete, pt compliant. Pt c/o 5/10 dullheadache behind the eyes. YOUTH DEVELOPMENT PROFESSIONAL Kyara cartagena at bedside.1630: 22g in R AC placed, labs drawn and sent, NS @ 100ml/hr initiated.1745: hgb resulted 7.7, on-call MD notified. Con ABO drawn and sent.This note was completed by: Piper Robert RN CT BRAIN WO IVCON Observed: 08/14/2018 Status: F Source: [place] 5:04 PM [facility] REPOSITORY * * *Final Report* * *DATE OF EXAM: Aug 14 2018 5:04PM [facility] 0504 - CT BRAIN WO IVCON / REASON: Headache, acute, normal neuro exam * * * * Physician Interpretation * * * * EXAMINATION: CT BRAIN WO IVCONCLINICAL HISTORY: Headache, acute, normal neuro examTECHNIQUE: Serial axial images without IV contrast were obtained from the vertex to the foramen magnum.MQ: [id number] Dose-Length Product (DLP): 706 mGy*cmCT Dose Reduction Employed: No dose reduction techniques were requiredCOMPARISON: None.RESULT:Post-operative change: None.Acute change: No evidence of an acute infarct or other acute parenchymal process.Hemorrhage: No evidence of acute intracranial hemorrhage.Mass Lesion / Mass Effect: As seen on axial image 18 of series 2, there is increased soft tissue signal involving periventricular white matter at the lateral, ventral margin of the left lateral ventricle. This process measures 1.5 x 0.7 cm in AP and transverse diameter. 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 Confirmation with MRI is recommended to exclude infiltrative process.Chronic change: Scattered patchy foci of low attenuation are present within supratentorial white matter which is a nonspecific finding but likely represents mild microvascular ischemia.Parenchyma: There is mild prominence of cerebellar folia. The brain parenchyma is otherwise within normal limits for age.Ventricles: The ventricles are within normal limits of size and configuration for age.Paranasal sinuses and skull base: The visualized paranasal sinuses are grossly clear. 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 However, nonurgent MRI confirmation is recommended to exclude infiltrative process.[employer] Laborer: YOSEF Transcribe Date/Time: Aug 14 2018 5:06PDictated by : ANT MURPHY MDThis examination was interpreted and the report reviewed and electronically signed by: ANT MURPHY MD on Aug 14 2018 5:10PM [id number] ECG COMPLETE W Observed: 08/14/2018 Status: F Source: [place] INTERPRETATION 4:38 PM [facility] REPOSITORY NAME : SERENA BLACKID : [id number] : 1945 Gender : FemaleRace : CaucasianORD : [id number] Procedure Date : Aug 14 2018 16:38:06Edit Date : Aug 15 2018 11:55:22 Diagnosis:NORMAL SINUS RHYTHMNORMAL ECGConfirmed by TAHMINA LOGAN M.D. ([id number]) on 08/15/2018 11:55:17 AM Ventricular Rate : 97 BPMAtrial Rate : 97 BPMP-R Interval : 184 msQRS Duration : 84 msQ-T Interval : 330 msQTC Calculation(Bezet) : 419 msP [place] : 25 degreesR [place] : 1 degreesT [place] : 6 degrees Test Reason : ALL Location : 17 : [id number] Overread By : DOREEN Mccloud,MOUINEdited By : DOREEN Mccloud,MOUINReferred By : ,Acquired by : MEGGAN KHAN PROGRESS Observed: 08/14/2018 Status: COMPLETED Source: [place] 4:37 PM [facility] REPOSITORY HNO ID: [id number]: Yoandy (Rt) FrenchyService: RadiologyAuthor Type: TechnicianType: Progress NotesFiled: 08/14/2018 4:58 PMNote Text: Radiology Service Progress NotePATIENT NAME: Tari BlackMRN: [id number] OF SERVICE: August 14, 2018TIME: 4:37 PMPATIENT IDENTITY VERIFICATION COMPLETED USING TWO (2) METHODS: Patientconfirmed name verbally and ID band matches..PATIENT GENDER DATA: Female. status: : NoBreastfeeding status: NO.PATIENT RELEVANT IMPLANT DATA REVIEWED: YesRADIOLOGY DEPARTMENT: CT; Exam(s) Completed: BrainPERIPHERAL IV DATA: Not applicableSIGNED BY: CRYSTAL Ordonez2017 4:37 PM LD Collected: 08/14/2018 Status: F Source: [facility] 4:30 PM [facility] REPOSITORY TYPE CODE TESTS RESULT OUT OF RANGE REFERENCE UNITS LAB LD High 135-214 U/L LD 674 Result Comment: Results may be falsely increased due to interference by hemolysis. Suggest reorder as clinically indicated. Performed By: #### LD6, PTT, FIBCT, CMP, PHOS, URIC, HIV12C, HREMOP, CBCDIF, STFREV #### [facility] [address] [place] [id number] APTT Collected: 08/14/2018 Status: F Source: [place] 4:30 PM [facility] REPOSITORY TYPE CODE TESTS RESULT OUT OF RANGE REFERENCE UNITS LAB APTT Low 23.0-32.4 sec APTT 22.0 Result Comment: Unfractionated Heparin Therapeutic Ranges: Standard Heparin Nomogram: 53 to 78 seconds (anti-Xa level of 0.3 to 0.7 U/ml) Low Dose/ACS Nomogram: 49 to 67 seconds (anti-Xa level of 0.2 to 0.5 U/ml) Stroke Treatment Nomogram: 49 to 67 seconds (anti-Xa level of 0.2 to 0.5 U/ml) Note: The APTT therapeutic range has been determined for the current lot of laboratory APTT reagent in use throughout the [facility]. Performed By: #### LD6, PTT, FIBCT, CMP, PHOS, URIC, HIV12C, HREMOP, CBCDIF, STFREV #### [facility] [employer] [facility] [address] [place], [place] [address] FIBRINOGEN Collected: 08/14/2018 Status: F Source: [place] 4:30 PM [facility] REPOSITORY TYPE CODE TESTS RESULT OUT OF REFERENCE UNITS RANGE LAB FIBCT High 200-400 mg/dL Fibrinogen 428 Performed By: #### LD6, PTT, FIBCT, CMP, PHOS, URIC, HIV12C, HREMOP, CBCDIF, STFREV #### [facility] [address] [place], [place] [address] COMP METABOLIC PANEL Collected: 08/14/2018 Status: F Source: [place] 4:30 PM [facility] REPOSITORY TYPE CODE TESTS RESULT OUT OF REFERENCE UNITS RANGE LAB TP 6.3-8.0 g/dL Protein, Total 7.2 LAB ALB 3.9-4.9 g/dL Albumin 4.2 LAB CA High 8.5-10.2 mg/dL Calcium, Total 10.4 LAB TBIL High 0.2-1.3 mg/dL Bilirubin, 1.5 Total LAB ALKP 34-123 U/L Alkaline 61 Phosphatase Result Comment: Results may be falsely decreased due to interference by hemolysis. Suggest reorder as clinically indicated. LAB AST High 13-35 U/L AST 51 Result Comment: Results may be falsely increased due to interference by hemolysis. Suggest reorder as clinically indicated. LAB GLU High 74-99 mg/dL Glucose 120 Result Comment: The [place] Diabetes Association (ADA) provides guidance for cutoff values for fasting glucose and r andom glucose. The ADA defines fasting as no caloric intake for at least 8 hours. Fasting plasma glucose results between 100 to 125 mg/dL indicate increased risk for diabetes (prediabetes). Fasting plasma glucose results greater than or equal to 126 mg/dL meet the criteria for diagnosis of diabetes. In the absence of unequivocal hyperglycemia, results should be confirmed by repeat testing. In a patient with classic symptoms of hyperglycemia or hyperglycemic crisis, random plasma glucose results greater than or equal to 200 mg/dL meet the criteria for diagnosis of diabetes. Reference: Standards of Medical Care in Diabetes 2016, [place] [employer] Association. Diabetes Care. 2016.39(Suppl 1). LAB BUN 7-21 mg/dL BUN 16 LAB CRET 0.58-0.96 mg/dL Creatinine 0.76 LAB NA Low 136-144 mmol/L Sodium 135 LAB K High 3.7-5.1 mmol/L Potassium 5.5 Result Comment: Results may be falsely increased due to interference by hemolysis. Suggest reorder as clinically indicated. LAB CL 97-105 mmol/L Chloride 101 LAB CO2 22-30 mmol/L CO2 24 LAB AGAP 9-18 mmol/L Anion Gap 10 LAB ALT 7-38 U/L ALT 17 Result Comment: Results may be falsely increased due to interference by hemolysis. Suggest reorder as clinically indicated. LAB GFRAA eGFR- Amer. >60 LAB GFRNAA . eGFR-All Other Races >60 Result Comment: eGFR (Estimated GFR) Units of measure: mL/min/1.73 meters squared eGFR is derived from the reexpressed MDRD Study equation using the following parameters: serum creatinine, age, gender and race. The creatinine assay has been calibrated to be traceable to IDMS. An eGFR <60 mL/min/1.73m2 for >3 months is consistent with chronic kidney disease. Refer to KDOQI guidelines for clinical interpretation. In patients with unstable renal function, e.g. those with acute kidney injury, the eGFR may not accurately reflect actual GFR. Performed By: #### LD6, PTT, FIBCT, CMP, PHOS, URIC, HIV12C, HREMOP, CBCDIF, STFREV #### [facility] [address] [place], [place] [address] PHOSPHORUS Collected: 08/14/2018 Status: F Source: [place] 4:30 PM [facility] REPOSITORY TYPE CODE TESTS RESULT OUT OF REFERENCE UNITS RANGE LAB PHOS 2.7-4.8 mg/dL Phosphorus 2.8 Result Comment: Results may be falsely increased due to interference by hemolysis. Suggest reorder as clinically indicated. Performed By: #### LD6, PTT, FIBCT, CMP, PHOS, URIC, HIV12C, HREMOP, CBCDIF, STFREV #### [place] [address] URIC ACID Collected: 08/14/2018 Status: F Source: [place] 4:30 PM [facility] REPOSITORY TYPE CODE TESTS RESULT OUT OF RANGE REFERENCE UNITS LAB URIC 2.5-6.6 mg/dL Uric 4.9 Acid Performed By: #### LD6, PTT, FIBCT, CMP, PHOS, URIC, HIV12C, HREMOP, CBCDIF, STFREV #### [place] [address] HIV 12 COMBO (AG/AB) Collected: 08/14/2018 Status: F Source: [place] 4:30 [facility] REPOSITORY TYPE CODE TESTS RESULT OUT OF REFERENCE UNITS RANGE LAB HVAGAB Non Reactive HIV Non 12 Ag/Ab Reactive Result Comment: (NOTE) HIV Information: [place] Rev. Code 3701.243(E): This information has been disclosed to you from confidential records protected from disclosure by state law. You shall make no further disclosure of this information without the specific, written, and informed release of the individual to whom it pertains, or as otherwise permitted by state law. A general authorization for the release of medical or other information is not sufficient for the purpose of the release of HIV test results or diagnoses. Performed By: #### LD6, PTT, FIBCT, CMP, PHOS, URIC, HIV12C, HREMOP, CBCDIF, STFREV #### [place] [address] HEPATITIS REMOTE PANEL Collected: 08/14/2018 Status: F Source: [place] 4:30 [facility] REPOSITORY TYPE CODE TESTS RESULT OUT OF REFERENCE UNITS RANGE LAB AHBCOT Negative Hep B Core Negative Ab,Total LAB AHCV Negative Hepatitis C Negative Ab IA LAB HBSAGR Negative HBsAg Negative LAB AHBSAG Negative HepB Negative Surface Ab,Qual Result Comment: NEGATIVE Performed By: #### LD6, PTT, FIBCT, CMP, PHOS, URIC, HIV12C, HREMOP, CBCDIF, STFREV #### [facility] [address] [place], [place] [address] CBC AND DIFFERENTIAL Collected: 08/14/2018 Status: F Source: [place] 4:30 PM [facility] REPOSITORY TYPE CODE TESTS RESULT OUT OF REFERENCE UNITS RANGE LAB WBC 3.70-11.00 k/uL WBC 7.62 LAB RBC Low 3.90-5.20 m/uL RBC 2.44 LAB HGB Low 11.5-15.5 g/dL Hemoglobin 7.7 LAB HCT Low 36.0-46.0 % Hematocrit 22.9 LAB MCV 80.0-100.0 fL MCV 93.9 LAB MCH 26.0-34.0 pG MCH 31.6 LAB MCHC 30.5-36.0 g/dL MCHC 33.6 LAB RDWCV High 11.5-15.0 % RDW-CV 18.0 LAB PLTCT Low 150-400 k/uL Platelet 25 Count Result Comment: Result checked and verified No clot detected. LAB MPV 9.0-12.7 fL MPV 11.5 LAB ANEUT % Neut% 3.0 Result Comment: See Staff Review LAB AANEUT Low 1.45-7.50 k/uL Abs Neut 0.23 LAB ALYMP % Lymph% 30.0 LAB AALYMP 1.00-4.00 k/uL Abs Lymph 2.29 LAB AMONO % [place]% 0.0 LAB AAMONO <0.87 k/uL Abs [place] 0.00 LAB AEOS % Eosin% 0.0 LAB AAEOS <0.46 k/uL Abs Eosin 0.00 LAB ABASO % Baso% 0.0 LAB AABASO <0.11 k/uL Abs Baso 0.00 LAB ABIMMG k/uL ANC(includeSEG+BA 0.23 ND) LAB ABLAST High 0 % Blast% 67.0 LAB ANIIMI Anisocytosis Present LAB OVAIMI Ovalocytes Few LAB PLTEST Platelet Estimate Platelet estimate decreased LAB DTYP DTYPE Manual Diff Performed By: #### LD6, PTT, FIBCT, CMP, PHOS, URIC, HIV12C, HREMOP, CBCDIF, STFREV #### [facility] [facility] [address] [place], [place] [address] STAFF REVIEW Collected: 08/14/2018 Status: F Source: [place] LAB USE ONLY 4:30 PM [facility] REPOSITORY TYPE CODE TESTS RESULT OUT OF REFERENCE UNITS RANGE LAB SREVW Staff SEE Review COMMENT Result Comment: Blasts with Saroj rods, consistent with acute myeloid leukemia LAB SRPATH Pathologist Reviewed by Joseph James M.D. ([id number]) Performed By: #### LD6, PTT, FIBCT, CMP, PHOS, URIC, HIV12C, HREMOP, CBCDIF, STFREV #### [facility] [address] [place], [place] [address] PROTIME Collected: 08/14/2018 Status: F Source: [place] 4:30 PM [facility] REPOSITORY TYPE CODE TESTS RESULT OUT OF RANGE REFERENCE UNITS LAB PSEC 9.7-13.0 sec PT 10.8 Sec LAB INR 0.9-1.3 PT 1.0 INR Result Comment: Vitamin K Antagonist (VKA) Therapeutic Range: INR 2 to 3 (Target INR of 2.5) Note: For patients treated with VKA drugs, such as warfarin, the [place] [employer] 2012 Guideline recommends a therapeutic INR range of 2 to 3 (target INR of 2.5). This recommendation includes high-risk patients with antiphospholipid syndrome with previous arterial or venous thromboembolism, current-generation mechanical or bioprosthetic aortic heart valve replacement. Note: Patients with mechanical aortic valve replacement and additional risk factors for thromboembolic events (atrial fibrillation, previous thromboembolism, LV dysfunction, hypercoagulable conditions) or an older generation mechanical AVR (i.e., ball in-Cage) or any mechanical MVR should have a INR therapeutic range of 2.5 to 3.5 (target INR of 3). Jhon GH, et al. Chest 2012, 141:7S-47S Diallo RA et al. [facility] 2017, 70: 252-289 Performed By: #### PT #### [facility] [address] [place], [place] [address] TYPE AND SCREEN Collected: 08/14/2018 Status: F Source: [place] 4:30 PM [facility] REPOSITORY TYPE CODE TESTS RESULT OUT OF REFERENCE UNITS RANGE LAB %ABR ABO/RH(D) O NEGATIVE LAB % Antibody NEG Screen Performed By: #### TSCR #### [facility] [address] [place], [place] [address] HISTORY PHYSICAL Observed: 08/14/2018 Status: COMPLETED Source: [place] 2:45 PM [facility] REPOSITORY HNO ID: [id number]: Horace DohertyAmberrvice: Hematology/OncologyAuthor Type: PhysicianType: HANDPFiled: 08/15/2018 2:04 PMNote Text:HISTORY AND PHYSICAL EXAMINATIONSERVICE DATE: 08/14/2018SERVICE TIME: 1446PRIMARY CARE PHYSICIAN: Srinivas Rodriguez COMPLAINT: PancytopeniaHPI: This is a 73 year old female who presents with PMH HTN (onLisinopril), Arthritis, takes a daily aspirin (held on admission), beingadmitted due to concern for acute leukemia. She presented to her PCP afterexperiencing persistent upset stomach, headaches, fatigue, and easybruising. Her CBC showed pancytopenia and [facility] furtherwork[facility].FUNCTIONAL STATUS: IndependentNo past medical history on file.No past surgical history on file.No family history on file.Social HistorySubstance Use Topics- Smoking status: Not on file- Smokeless tobacco: Not on file- Alcohol use Not on fileNo prescriptions prior to admission.ALLERGIESNo Known AllergiesCOMPLETE REVIEW OF SYSTEMS:GENERAL: No weight loss, fevers; + fatigueHEENT: + headaches, No changes in hearing or vision, no nose bleeds orother nasal problemsNECK: Negative for lumps, goiter, pain and significant neck swellingRESPIRATORY: Negative for cough, hemoptysis, wheezing, COPD, dyspnea orshortness of breathCARDIOVASCULAR: Negative for chest pain, leg swelling, hypertension, CHFor palpitationsGI:+ Nausea; No diarrheaGU: No history of dysuria, frequency or incontinenceMUSCULOSKELETAL: Negative for joint pain or swelling, back pain or musclepainSKIN: Negative for lesions, rash, and itchingObjectivePHYSICAL EXAM:Physical Exam Performed:GENERAL: Alert, no distress, cooperativeSKIN: Skin color, texture, turgor normal. No rashes or lesions.HEAD/SINUSES: No significant findingsEYES: PERRLA, EOMIEARS: External ears normal, canals clearNOSE: Nares normal. Septum midline.OROPHARYNX: Lips, mucosa, and tongue normal. Teeth and gums normal.Oropharynx normal.NECK: No jugulovenous distentionBACK: Back symmetric, Normal curvatureLUNGS: Lungs clear to auscultation, Good diaphragmatic excursionCARDIAC: Normal S1 and E1PUZWVUV: Abdomen soft, non-tender, BS normal, No masses or organomegalyEXTREMITIES: Extremities normal, no deformities, edema, clubbing or skindiscoloration. Good capillary refill., No ulcersNEURO: Gait normal. Reflexes normal and symmetric.PULSES: 2+ radial, 2+ carotidBP 148/78 Pulse 100 Temp (Src) 98.3 (Oral) Resp 16 Ht 5'5.945[verified by Piper HERNANDEZ[ (1.68m) Wt 214 lb 1.1 oz (97.1kg) VyI409% BMI 34.61 kg/(m2).DATA:Diagnostic tests reviewed for today's visit:Most recent labs and imaging results.Assessment/PlanActive Hospital Problems Diagnosis- Pancytopenia (HCC) Tari Black is a 73 year old female with PMH of HTN and arthritis beingadmitted due to concern for acute leukemia after going to her PCP forupset stomach, headaches, and fatigue (CBC showing pancytopenia).- CXR, EKG ordered- mIVF, allopurinol, TLS labs q 8 hours- Plan for bone marrow biopsy tomorrow 08/15- Transfuse LR + IR blood products for Hgb <8; Plt <10- CBC ordered on admission- Headache - CT brain 08/14- PRN ultram- Nausea - Zofran PRN- Immunodeficiency (HCC) - ppx acyclovir- HTN (hypertension) - Continue home lisinopril- Electrolyte imbalance risk - Replete electrolytes per protocol- mIVF NS @ 100cc/hr- Hospital discharge follow-up - Following Dr DohertyeMedication and Non-Pharmacologic VTE Prophylaxis/AnticoagulantsSIGNATURE: Harini Cassidy APRN.MARINE SURVEYOR PATIENT NAME: Tari BlackDATE: August 14, 2018 : 2:45 PM PAGER/CONTACT #: [phone]/MEDICAL ONCOLOGY STAFF:TEACHING PHYSICIAN NOTE OF PERSONAL INVOLVEMENT IN CAREI have reviewed the progress note obtained and documented by the licensedindependent practitioner and I personally participated in the keycomponents. I have discussed the case and management of the patient's carewith the licensed independent practitioner. The following comments reviseor confirm relevant murphy components of the licensed independentpractitioner's note.IMPRESSION/PLAN: Suspected acute leukemia. Patient admitted for inductionchemotherapy. The [facility] conducts standardquality assurance validation for all diagnosed patients new to the [facility] and this will also be performed during this admission. Schedulefor BMBx and send blood for flow cytometry. SUpportive care andtransfusion support.?Horace Hoang MD PhD MPHAssociate StaffHematologic Oncology and Blood DisordersPager [phone] of service: 08/14/2018? FE Collected: 08/12/2018 Status: F Source: [facility] 3:42 PM [facility] REPOSITORY TYPE CODE TESTS RESULT OUT OF RANGE REFERENCE UNITS LAB FE(LOINC) 37-170 mcg/dL Iron 58 Performed By: #### FE, TSH, CMP, GFR, LIPID, ESR, DIFF, MORPH, CBC, CRP, CBCPR #### [address] [address] TSH Collected: 08/12/2018 Status: F Source: [facility] 3:42 PM [facility] REPOSITORY TYPE CODE TESTS RESULT OUT OF RANGE REFERENCE UNITS LAB TSH(LOINC) 0.360-3.740 mcIU/mL TSH 1.050 Result Comment: Please note as of 06/01/17 new pediatric reference intervals were added for this test. Performed By: #### FE, TSH, CMP, GFR, LIPID, ESR, DIFF, MORPH, CBC, CRP, CBCPR #### [address] [address] CMP Collected: 08/12/2018 Status: F Source: [facility] 3:42 PM [facility] REPOSITORY TYPE CODE TESTS RESULT OUT OF REFERENCE UNITS RANGE LAB GLU(LOINC) 82-115 mg/dL Glucose Level 109 LAB NA(LOINC) 136-145 mEq/L Sodium Level 142 LAB K(LOINC) 3.5-5.0 mEq/L Potassium Level 4.4 LAB CL(LOINC) 98-110 mEq/L Chloride 107 LAB CO2(LOINC) 22-32 mEq/L CO2 27 LAB EBAL(LOINC 4.0-15.0 mEq/L ) Electrolyte 8.0 Balance LAB BUN(LOINC) High 8.0-22.0 mg/dL BUN 25.0 LAB CRE(LOINC) 0.50-1.20 mg/dL Creatinine Lvl 0.76 (s) LAB BC(LOINC) High 10.0-22.0 ratio BUN/Creatinine 32.9 Ratio LAB CA(LOINC) 8.4-10.1 mg/dL Calcium Lvl 10.1 LAB PROT(LOINC 6.0-8.5 G/dL ) Total Protein 6.9 LAB ALB(LOINC) 3.2-4.8 G/dL Albumin Level 3.6 LAB GLB(LOINC) 1.5-3.8 G/dL Globulin 3.3 LAB AG(LOINC) 0.9-1.6 ratio A/G Ratio 1.1 LAB BILT(LOINC 0.2-1.2 mg/dL ) Bili Total 1.2 LAB AP(LOINC) 38-126 U/L Alk Phos 75 LAB AST(LOINC) 8-34 U/L AST/SGOT 22 LAB ALT(LOINC) 10-49 U/L ALT/SGPT 27 Performed By: #### FE, TSH, CMP, GFR, LIPID, ESR, DIFF, MORPH, CBC, CRP, CBCPR #### [place] [address] .GFR Collected: 08/12/2018 Status: F Source: [facility] 3:42 PM [facility] REPOSITORY TYPE CODE TESTS RESULT OUT OF REFERENCE UNITS RANGE LAB GFRAA(LOINC ml/min/1.73 ) GFR >60 sqm Result Comment: GFR Population mean for , Non- Americans Ages 20-29 = 116 mL/min/1.73 sq.m. Ages 30-39 = 107 mL/min/1.73 sq.m. Ages 40-49 = 99 mL/min/1.73 sq.m. Ages 50-59 = 93 mL/min/1.73 sq.m. Ages 60-69 = 85 mL/min/1.73 sq.m. Ages 70+ = 75 mL/min/1.73 sq.m. Chronic Kidney Disease: Less than 60 mL/min/1.73 square meters End Stage Renal Disease: Less than 15 mL/min/1.73 square meters LAB GFRNO(LOINC) ml/min/1.73sqm GFR Non- >60 Result Comment: GFR Population mean for , Non- Americans Ages 20-29 = 116 mL/min/1.73 sq.m. Ages 30-39 = 107 mL/min/1.73 sq.m. Ages 40-49 = 99 mL/min/1.73 sq.m. Ages 50-59 = 93 mL/min/1.73 sq.m. Ages 60-69 = 85 mL/min/1.73 sq.m. Ages 70+ = 75 mL/min/1.73 sq.m. Chronic Kidney Disease: Less than 60 mL/min/1.73 square meters End Stage Renal Disease: Less than 15 mL/min/1.73 square meters Performed By: #### FE, TSH, CMP, GFR, LIPID, ESR, DIFF, MORPH, CBC, CRP, CBCPR #### [place] [address] LIPID Collected: 08/12/2018 Status: F Source: [facility] 3:42 PM [facility] REPOSITORY TYPE CODE TESTS RESULT OUT OF REFERENCE UNITS RANGE LAB CHOL(LOINC 50-199 mg/dL ) Cholesterol 196 Result Comment: Cholesterol Reference Interval: Less than 200 Desirable 200-239 Borderline high risk 240 and above High risk LAB TRIG(LOINC) High 3-149 mg/dL Triglycerides 296 Result Comment: Triglyceride Reference Interval: Less than 150 Normal 150-199 Borderline high risk 200-499 High risk 500 or higher Very high risk LAB HD(LOINC) Low 40-59 mg/dL HDL Cholesterol 33 Result Comment: HDL Reference Interval: Less than 40 Low - high risk 60 or above Optimal/lowers risk LAB LDL(LOINC) 0-129 mg/dL LDL Cholesterol 104 Result Comment: LDL is a calculated result and requires a 12-hr fast. LDL Reference Interval: Less than 100 Optimal 100-129 Near or above optimal 130-159 Borderline high risk 160-189 High risk 190 and above Very high risk Performed By: #### FE, TSH, CMP, GFR, LIPID, ESR, DIFF, MORPH, CBC, CRP, CBCPR #### [place] [address] ESR Collected: 08/12/2018 Status: F Source: [facility] 3:42 PM [facility] REPOSITORY TYPE CODE TESTS RESULT OUT OF REFERENCE UNITS RANGE LAB ESR(LOINC) High 0-30 mm/hr Erythrocyte Sed 89 Rate Performed By: #### FE, TSH, CMP, GFR, LIPID, ESR, DIFF, MORPH, CBC, CRP, CBCPR #### [address] [address] .MANUAL DIFF Collected: 08/12/2018 Status: C Source: [facility] 3:42 [facility] REPOSITORY TYPE CODE TESTS RESULT OUT OF RANGE REFERENCE UNITS LAB LIMIT(LOIN C) Cells Counted 100 LAB NEUM(LOINC Low 50.0-75.0 % ) Neutrophil %, 2.0 Manual LAB LYMM(LOINC 20.0-40.0 % ) Lymphocyte %, 22.0 Manual LAB MONM(LOINC Low 2.0-13.0 % ) Monocyte %, 0.0 Manual LAB EOM(LOINC) 0.0-6.0 % Eosinophil %, 0.0 Manual LAB BASM(LOINC 0.0-2.5 % ) Basophil %, 0.0 Manual LAB OCT(LOINC) % Other Cell 0.0 Types LAB ANEUM(LOIN Abnormal 2.25-8.10 10 3/mcL C) Neutrophil, 0.13 Alert Abs Manual LAB ABLYMM(BARRIE 0.90-4.32 10 3/mcL NC) Lymphocyte, 1.52 Abs Manual LAB AMONM(LOIN Low 0.09-1.40 10 3/mcL C) Monocyte, Abs 0.00 Manual LAB AEOSM(LOIN 0.00-0.65 10 3/mcL C) Eosinophil, 0.00 Abs Manual LAB ABASM(LOIN 0.00-0.27 10 3/mcL C) Basophil, Abs 0.00 Manual LAB BLAST(LOIN Abnormal % C) Blast 76.0 Alert Performed By: #### FE, TSH, CMP, GFR, LIPID, ESR, DIFF, MORPH, CBC, CRP, CBCPR #### [address] [address] .MORPH Collected: 08/12/2018 Status: C Source: [facility] 3:42 PM [facility] REPOSITORY TYPE CODE TESTS RESULT OUT OF REFERENCE UNITS RANGE LAB PLTE(LOINC ) Platelet Grt Estimate Decreased LAB DCOMM(LOIN C) Differential See Below Comment Result Comment: Pathologist to review smear. other cells to be identified by pathologist LAB ANIS(LOINC) Anisocytosis Slight LAB POIK(LOINC) Poik Slight LAB SCHIS(LOINC) Schistocyte Few LAB SPHR(LOINC) Spherocyte Few Performed By: #### FE, TSH, CMP, GFR, LIPID, ESR, DIFF, MORPH, CBC, CRP, CBCPR #### [place] [address] CBC Collected: 08/12/2018 Status: F Source: [facility] 3:42 [facility] REPOSITORY TYPE CODE TESTS RESULT OUT OF REFERENCE UNITS RANGE LAB WBC(LOINC) 4.50-10.80 10 3/mcL WBC 6.90 LAB RBCCT(LOINC Low 4.10-5.30 10 6/mcL ) RBC 2.50 LAB HGB(LOINC) Low 12.0-16.0 G/dL Hgb 8.1 LAB HCT(LOINC) Low 34.0-46.0 % Hct 23.1 LAB MCV(LOINC) 80.0-99.0 fL MCV 92.6 LAB MCH(LOINC) 27.0-33.0 pg MCH 32.4 LAB MCHC(LOINC) 32.0-36.0 G/dL MCHC 35.0 LAB RDW(LOINC) High 11.5-15.5 % RDW 17.3 LAB PLT(LOINC) Low 150-450 10 3/mcL Platelet 29 LAB MPV(LOINC) 6.6-10.5 fL MPV 8.6 Performed By: #### FE, TSH, CMP, GFR, LIPID, ESR, DIFF, MORPH, CBC, CRP, CBCPR #### [address] [id number] CRP Collected: 08/12/2018 Status: F Source: [facility] 3:42 PM [facility] REPOSITORY TYPE CODE TESTS RESULT OUT OF REFERENCE UNITS RANGE LAB CRP(LOINC) High <=0.80 mg/dL 2.18 C-Reactive Protein Performed By: #### FE, TSH, CMP, GFR, LIPID, ESR, DIFF, MORPH, CBC, CRP, CBCPR #### [place] [id number] [place] [id number] .CBC PATH REVIEW Collected: 08/12/2018 Status: F Source: [facility] 3:42 PM [facility] REPOSITORY TYPE CODE TESTS RESULT OUT OF REFERENCE UNITS RANGE LAB CBCPR(LOIN C) CBC ACUTE Path Review LEUKEMIA WITH 75% BLASTS. RECOMMEND HEMATOLOGY CONSULT WITH BONE MARROW EVALUATION. Result Comment: Electronically signed by: RACHEL BLAKE MD 08.13.2018 10:05 EDT Performed By: #### FE, TSH, CMP, GFR, LIPID, ESR, DIFF, MORPH, CBC, CRP, CBCPR #### [address] [address] EMERGENCY REPORT Observed: 10/29/2017 Status: F Source: [facility] 9:02 AM [facility] EMERGENCY ROOM REPORT NAME NUMBER SEX AGE ADMIT DISC TYPE MED.RECORD# WAYNE EL A [id number] F 72 10/28/17 10/28/17 E.R. [id number] ROOM:ER-C DATE OF :1945 PHYSICIAN NO.:[id number] PHYSICIAN NAME:E-Sign: Sowmya Perez D.O. PHYSICIAN:JACKLYN Farrell [facility] PHYSICIAN: JACKLYN Farrell CHIEF COMPLAINT: Abdominal pain. HISTORY OF PRESENT ILLNESS: The patient states that she has had pain to her abdomen which started last week. It seems to have gotten worse since Saturday. It is fairly constant, though, with some intermittent severity. It seems to be worse when she urinates, and a little worse when she is up and ambulatory. No documented fever. Minimal nausea, but no vomiting. No problems with bowel movements. Ibuprofen does seem to help with the pain. He has not had any recent injury or trauma. She states that she has not had anything like this previously other than a urinary tract infection which seems somewhat similar. PAST MEDICAL HISTORY: Significant for hypertension. No other chronic medical problems. PAST SURGICAL HISTORY: None. MEDICATIONS: Per med rec list. ALLERGIES: No known drug allergies. SOCIAL HISTORY: She is Hinduism. She lives at home. She does not smoke or drink alcohol. She is accompanied here with family members. REVIEW OF SYSTEMS: No chest pain. No heart or lung disease. No pain or swelling to the extremities. No rashes. No underlying bowel disease or bleeding disorder. PHYSICAL EXAMINATION: This is a 72-year-old, pleasant, white female who is mildly obese. Patient does not appear toxic. Skin is pink, warm and dry. HEENT: All within normal limits. NECK: Supple without adenopathy. LUNGS: Clear. No crackles or wheezes. CARDIAC: Regular rhythm without ectopy or murmur. ABDOMEN: Mildly obese, but soft. She seems to have some low abdomen/suprapubic tenderness. It seems to be diffuse to the pelvic area, no focal areas, perhaps a little more so on the right. No masses. Bowel sounds are present but diminished. No back or flank tenderness. EXTREMITIES: She moves extremities appropriately without any focal weakness. Good peripheral pulses and capillary refill. No clubbing cyanosis or edema. NEUROLOGIC: Normal and nonfocal. VITAL SIGNS: Blood pressure 185/98, pulse 108, respirations 18, temperature 99.3. O2 saturation 97%. DIAGNOSTIC DATA: A number of lab studies were obtained, and we proceeded to get abdominal and pelvis CT. Labs return showing a CBC with a normal white count of 5600, mild left shift, 81% neutrophils, normal H&H. Lipase was normal. CRP was elevated at 5.6. CMP: Glucose 141, otherwise, all within normal limits. Urinalysis showed positive nitrite, 26-50 WBCs and positive bacteria. Abdomen and pelvis CT read by the radiologist showed thickening of the bladder wall without any other acute abnormalities. EMERGENCY ROOM REPORT WAYNE Eubanks [address] [place] [address] EMERGENCY ROOM REPORT NAME NUMBER SEX AGE ADMIT DISC TYPE MED.RECORD# WAYNE Eubanks [id number] F 72 10/28/17 10/28/17 E.R. [id number] ROOM:ER-C DATE OF :1945 PHYSICIAN NO.:[id number] PHYSICIAN NAME:E-Sign: Sowmya Perez D.O. PHYSICIAN:JACKLYN Farrell FAMILY PHYSICIAN: JACKLYN Farrell EMERGENCY DEPARTMENT COURSE AND TREATMENT/PLAN/DISPOSITION: IV normal saline was placed. She was initially given 200 mL bolus and 15 mg of Toradol which actually helped markedly with her pain. The patient was given a dose of Rocephin IV. We did get a culture of her urine. She will be discharged with a prescription for Bactrim for the next week. I did give a small number of oral Toradol for pain at home if needed. She is to follow up with her family physician in 2-3 days if no better. Return if symptoms worsen. DIAGNOSIS: Acute urinary tract infection. D: Jabier Palafox MD TD: 09:50 JOB #: [id number] Electronically signed by: Not Currently Signed Transcribed by: tonny 10/29/2017 07:59 EMERGENCY ROOM REPORT WAYNE Eubanks 2 CT ABDOMEN/PELVIS W Observed: 10/28/2017 Status: F Source: [facility] 9:15 AM [place] [address] Patient: TARI BLACK. Phone#: : 1945 Age: 72 Gender: F Pt. Type: ER Account: [id number] Location: 052 Ordering: JABIER PALAFOX Exam Date: 10/28/2017/8:57 Family Phys: JOSÉ MIGUEL VILLASENOR Charge Code: [id number] Physician: [place] Order #: [id number] DLP Dose#: PROCEDURE: CT ABDOMEN/PELVIS WITH CONTRAST COMPARISON: None. INDICATIONS: Abdominal pain TECHNIQUE: After obtaining the patient's consent, CT images were created with non-ionic intravenous contrast material. All CT scans at this facility use dose modulation, iterative reconstruction, and/or weight based dosing when appropriate to reduce radiation dose to as low as reasonably achievable. IV CONTRAST: Omnipaque 350,80ml TOTAL DOSE: 34.20 CTDIvol(mGy) FINDINGS: LIVER: Normal. No enlargement, atrophy, abnormal density, or significant focal lesion. BILIARY: Normal. No visible dilatation or calcification. PANCREAS: Normal. No lesion, fluid collection, ductal dilatation, or atrophy. SPLEEN: Normal. No enlargement or focal lesion. KIDNEYS: Normal. No mass, obstruction, or calcification. ADRENALS: Normal. No mass or enlargement. AORTA/VASCULAR: Normal. No aneurysm or dissection. RETROPERITONEUM: Normal. No mass or adenopathy. BOWEL/MESENTERY: Normal. No visible mass, obstruction, or bowel wall thickening. ABDOMINAL WALL: Normal. No mass or hernia. Continued Report - Page 2 of 2 Patient: TARI BLACK Phone#: : 1945 Age: 72 Gender: F Pt. Type: ER Account: [id number] Location: [facility] Ordering: JABIER PALAFOX Exam Date: 10/28/2017/8:57 Family Phys: JOSÉ MIGUEL VILLASENOR Charge Code: [id number] Physician: [place] Order #: [id number] DLP Dose#: URINARY BLADDER: Normal. No visible focal wall thickening, lesion, or calculus. PELVIC NODES: Normal. No adenopathy. PELVIC ORGANS: Normal. No visible mass. Pelvic organs appropriate for patient age. BONES: Degenerative changes of the lower thoracic spine are present. LUNG BASES: Normal. No visible pulmonary or pleural disease. OTHER: Negative. CONCLUSION: 1. Mild thickening of the bladder wall. 2. No acute abdominal or pelvic abnormality is identified. Dictated by: Mary Albert MD on 10/28/2017 at 9:34 Approved by: Mary Albert MD on 10/28/2017 at 9:34 CMP WITH EGFR Collected: 10/28/2017 Status: F Source: [facility] 8:15 AM [facility] REPOSITORY TYPE CODE TESTS RESULT OUT OF RANGE REFERENCE UNITS LAB CMP with eGFR(LOINC) CMP with eGFR Result Comment: COMPREHENSIVE METABOLIC PANEL LAB SODIUM(LOINC) 136 - 145 mmol/l SODIUM 140 LAB POTASSIUM(LOINC) 3.5 - 5.1 mmol/L POTASSIUM 4.0 LAB CHLORIDE(LOINC) 98 - 107 mmol/L CHLORIDE 105 LAB CO2(LOINC) 21.0 - mmol/L CO2 31.0 27.7 LAB GLUCOSE(LOINC) High 74 - 106 mg/dl GLUCOSE 141 LAB BUN(LOINC) 6 - 20 mg/dl BUN 11 LAB CREATININE(LOINC) 0.6 - 1.2 mg/dl CREATININE 0.7 LAB AST/SGOT(LOINC) 13 - 39 U/L AST/SGOT 19 LAB ALK PHOS(LOINC) 38 - 126 U/L ALK PHOS 77 LAB CALCIUM(LOINC) 8.6 - mg/dl CALCIUM 10.2 10.2 LAB TOTAL 6.4 - 8.3 g/dl PROTEIN(LOINC) TOTAL PROTEIN 6.5 LAB ALBUMIN(LOINC) 3.4 - 4.8 g/dL ALBUMIN 3.9 LAB GLOBULIN(LOINC) 1.5 - 3.8 G/DL GLOBULIN 2.6 LAB A/G RATIO(LOINC) 0.9 - 1.6 A/G RATIO 1.5 LAB TOTAL BILI(LOINC) 0.0 - 1.5 mg/dl TOTAL BILI 1.4 LAB B/C RATIO(LOINC) 0 - 30 ratio B/C RATIO 16 LAB ALT/SGPT(LOINC) 8 - 35 U/L ALT/SGPT 24 LAB ANION GAP(LOINC) 10 - 20 mmol/L ANION GAP 11 LAB AGE(LOINC) years AGE 72 LAB eGFR(LOINC) 60 - 999 ML/MINUTE eGFR >60 LAB eGFR(AA)(LOINC) 60 - 999 ML/MINUTE eGFR(AA) >60 Result Comment: ACCORDING TO THE NATIONAL KIDNEY DISEASE EDUCATION PROGRAM(NKDE), A NORMAL eGFR IS A VALUE GREATER THAN OR EQUAL TO 60 ML/MIN/1.73 SQ METERS. CHRONIC KIDNEY DISEASE: <60mL/MIN/1.73 SQ METERS KIDNEY FAILURE: <15mL/MIN/1.73 SQ METERS THIS TEST SHOULD ONLY BE USED FOR PATIENTS 18 YEARS OF AGE AND OLDER. Performed By: #### [id number] #### [place] [address] C-REACTIVE PROTEIN Collected: 10/28/2017 Status: F Source: [facility] 8:15 [facility] REPOSITORY TYPE CODE TESTS RESULT OUT OF RANGE REFERENCE UNITS LAB CRP(LOINC) High 0.00 - 1.00 mg/dl CRP 5.60 Performed By: #### [id number] #### [place] [address] LIPASE Collected: 10/28/2017 Status: F Source: [facility] 8:15 [facility] REPOSITORY TYPE CODE TESTS RESULT OUT OF REFERENCE UNITS RANGE LAB LIPASE(LOIN Low 18.0 - 51.0 U/L C) LIPASE 12.0 Performed By: #### [id number] #### [place] [address] URINALYSIS Collected: 10/28/2017 Status: F Source: [facility] 7:50 [facility] REPOSITORY TYPE CODE TESTS RESULT OUT OF REFERENCE UNITS RANGE LAB URINALYSIS (LOINC) URINALYSIS Result Comment: URINALYSIS LAB Specimen Type(LOINC) Specimen Type UNSPECIFIED LAB Color(LOINC) NORMAL: Color p.yel YELLOW LAB Clarity(LOINC) NORMAL: Clarity sl.cloud CLEAR LAB ph(LOINC) NORMAL: ph 8 5.0-8.0 LAB Protein(LOINC) Abnormal NORMAL: Protein 30 NEGATIVE LAB Glucose(LOINC) NORMAL: Glucose NORM NORMAL LAB Ketone(LOINC) NORMAL: Ketone NEG NEGATIVE LAB Bilirubin(LOINC) NORMAL: Bilirubin NEG NEGATIVE LAB Blood(LOINC) Abnormal NORMAL: Blood 50 NEGATIVE LAB Urobilinog(LOINC NORMAL: ) Urobilinog NORM NORMAL LAB Sp NORMAL: [place](LOINC) Sp [place] 1.010 1.010-1.030 LAB Nitrite(LOINC) NORMAL: Nitrite POS NEGATIVE LAB Leukocytes(LOINC Abnormal NORMAL: ) Leukocytes 500 NEGATIVE LAB Microscopic(LOIN C) Microscopic SEE BELOW Result Comment: MICROSCOPIC LAB Wbc(LOINC) 0-5/hpf Wbc 26-50 LAB Rbc(LOINC) Abnormal 0-3/hpf Rbc 0-5 LAB Casts(LOINC) Casts NONE LAB Crystals(LOINC) Crystals NONE LAB Amorphous(LOINC) Amorphous NONE LAB Bacteria(LOINC) Bacteria 1+ LAB Epi Cells(LOINC) Epi Cells NONE LAB Mucous(LOINC) Mucous NONE LAB Yeast(LOINC) Yeast NONE Performed By: #### [id number] #### [facility],[address] [place] [address] CBC Collected: 10/28/2017 Status: F Source: [facility] 7:50 [facility] REPOSITORY TYPE CODE TESTS RESULT OUT OF RANGE REFERENCE UNITS LAB CBC(LOINC) CBC Result Comment: CBC-COMPLETE BLOOD COUNT LAB WBC(LOINC) 4.5 - 10.8 x 10EE3/UL WBC 5.6 LAB RBC(LOINC) 4.10 - x 10EE6/UL RBC 5.30 4.54 LAB HEMOGLOBIN(LOINC) 12.0 - g/dl HEMOGLOBIN 16.0 12.3 LAB HEMATOCRIT(LOINC) 34.0 - % HEMATOCRIT 46.0 36.7 LAB MCV(LOINC) 80 - 99 fl MCV 81 LAB MCH(LOINC) 27 - 33 pg MCH 27 LAB MCHC(LOINC) 32 - 36 X10 3 MCHC 34 LAB RDW/CV(LOINC) 12.0 - % RDW/CV 15.6 15.5 LAB PLATELET(LOINC) Low 150 - 450 x10EE3/UL PLATELET 128 LAB MPV(LOINC) 6.6 - 10.5 fl MPV 8.9 Result Comment: AUTOMATED DIFFERENTIAL LAB NEUT %(LOINC) High 46.0 - 76.0 % NEUT % 81.4 LAB LYMPH %(LOINC) Low 20.0 - 45.0 % LYMPH % 10.5 LAB MONOS %(LOINC) 0.0 - 10.0 % MONOS % 7.8 LAB EO %(LOINC) 0.0 - 7.0 % EO % 0.1 LAB BASO %(LOINC) 0.0 - 2.0 % BASO % 0.2 LAB Lymph #(LOINC) Low 0.80 - 2.80 x10EE3/U Lymph # L 0.60 LAB Neut #(LOINC) 1.50 - 7.10 x10EE3/U Neut # L 4.50 LAB [place] #(LOINC) 0.20 - 1.00 x10EE3/U [place] # L 0.40 LAB EO #(LOINC) 0.00 - 0.50 x10EE3/U EO # L 0.00 LAB Baso #(LOINC) 0.00 - 0.10 x10EE3/U Baso # L 0.00 LAB MANUAL DIFF(LOINC) MANUAL DIFF N/A LAB MORPHOLOGY(LOINC ) MORPHOLOGY N/A Result Comment: {CD] Performed By: #### [id number] #### [facility],[address] [place] [address] Observed: 10/28/2017 Status: F Source: [facility] CULTURE URINE 7:50 AM [facility] REPOSITORY CULTURE URINE _URINE CULTURE_ M I C R O B I O L O G Y R E P O R T FINAL Antimicrobial Susceptibility and Organism Identification Report Specimen Number : [id number] Requested : 10/28/17 Specimen Source : URINE Collected : 10/28/17 07:50 [place] of Isolation : Emergency Room Received : 10/28/17 07:50 Requesting Physician : IBRAHIMA VERNON Patient/Specimen Tests and Comments Specimen Comments FINAL REPORT: URINE COLONY COUNT: > THAN 100,000 CFU/CC GRAM NEGATIVE RODS Organisms Identified --------* 01 Escherichia coli 10/30/17 Comments >100,000 cfu Tech : Source : URINE ID # : [id number] FINAL Report Date : / / : Collected : 10/28/17 07:50 Continued on Next Page M I C R O B I O L O G Y R E P O R T FINAL Antimicrobial Susceptibility and Organism Identification Report Isolate 01 Escherichia coli Escherichia coliDRUG BRADFORD Sys. Urine --- ----- -----Ampicillin <=8 S SAztreonam <=8 S SCeftriaxone <=8 S SCeftazidime <=1 S SCephalothin <=8 SCiprofloxacin <=1 S SCefuroxime <=4 S SErtapenem <=1 S SNitrofurantoin <=32 SGentamicin <=4 S SImipenem <=1 S SLevofloxacin <=2 S SMeropenem <=1 S SPip/Tazo <=16 S SPiperacillin <=16 S STrimeth/Sulfa <=2/38 S STetracycline <=4 S STobramycin <=4 S S+, ++, +++, or S = Susceptible N/R = Not Reported Abel = Beta Lactamase Positive I = Intermediate CC = Cost Code TFG = Thymidine-dependent Strain R = Resistant BRADFORD = mcg/ml (mg/L) Blank = Data not available, or drug not advisable or testedFor Blood and CSF Isolates, a Beta-Lactamase test is recommended for Enterococus species.IB appears in place of S, I (S), +, ++, or +++ with species known to possess inducible B-lactamases; potentially they may becomeresistant to all B-lactam drugs. Monitoring of patients during/after therapy is recommended. Avoid other/combined B-lactam drugs.(a) Use maximum doses of drug with an aminoglycoside for P. aeruginosa in patients with granulocytopenia or serious infections.(b) Breakpoints based on parenteral dose. For cefuroxime Axetil (PO) use <8=S, 8-16=I, >16=R.(c) For non- enterococcal streptococci, Micrococcus species, and Listeria species, refer to the Ampicillin interpretation. * Interpretations based on approx. adult attainable systemic/urine levels, except drugs with <3 dilutions, which print NCCLS. Doses are guidelines; consider weight and renal/hepatic function. Urine interpretation for lower UTI only. Interpretations based on NCCLS M7-A2. Ticar/K Clav'ate for gram positives based on company marker's breakpoints. Tech : Source : URINE ID # : [id number] FINAL Report Date : / / : Collected : 10/28/17 07:50 10/30/17.KERRIEO. 10/29/17.KERRIEO. 10/30/17.TOBIN.COMPLETE Performed By: #### [id number] ####[facility],[address] [place] [address] ALLERGIES ALLERGIES DATE TYPE / CODE NAME / CODE REACTION SEVERITY SOURCE 08/29/2018 Drug No Known Unknown [place] Allergy/723483020(S Allergies/F[address] [facility] [place] [facility]) [address](RXNORM) Hospital Repository Drug NO KNOWN [place] Class/051606850(SNO ALLERGIES Clinic Other MED CT) [facility] Repository NG/241928512(SNOMED NO KNOWN [facility]) ALLERGIES [facility] Repository Miscellaneous No Known Drug Moderate [facility] All[facility]/213175145(S Allergies ([facility]) Modifier) Hospital (Qualifier Repository Value) ENCOUNTERS ENCOUNTERS ADMIT/DISCHARGE ACCOUNT NUMBER ADMITTING ENCOUNTER LOCATION SOURCE CLASS 09/05/2018 [id number] [facility] ding:MEDOUTP Repository 09/04/2018/09/04/20 [id number] Ambulatory [address] [facility] Repository 09/02/2018 [id number] [facility] ding:MEDOUTP Repository 09/01/2018/09/01/20 [id number] Ambulatory [address] [facility] Repository 08/29/2018/09/01/20 [id number] Ambulatory [address] [facility] Repository 08/29/2018 [id number] [facility] ding:MEDOUTP Repository 08/28/2018/08/29/20 [id number] Ambulatory [address] [facility] Repository 08/28/2018/08/28/20 [id number] Ambulatory [address] [facility] Repository 08/28/2018/08/28/20 [id number] Ambulatory [place] [address] Clinic Other [facility] Repository 08/28/2018/08/28/20 [id number] Ambulatory [place] [address] System MEDICAL Repository CENTERBuildi ng:AKUF 08/27/2018/08/28/20 [id number] Ambulatory [address] [facility] Repository 08/26/2018/08/27/20 [id number] Ambulatory [address] [facility] Repository 08/25/2018 [id number] JACKLYN, Ambulatory [facility] Repository 08/25/2018/08/27/20 [id number] Ambulatory [address] Repository 08/25/2018/08/25/20 [id number] Ambulatory [address] Repository 08/25/2018/08/25/20 [id number] Ambulatory [address] Repository 08/20/2018/08/22/20 [id number] Ambulatory [address] Repository 08/20/2018/08/22/20 [id number] Ambulatory [address] Repository 08/20/2018/08/28/20 [id number] Ambulatory RBuilding:WH Janet [facility] Repository 08/14/2018/08/19/20 [id number] NATALYA, Inpatient [place] [address] SUDIPTO Encounter [facility] Repository 10/28/2017/10/28/20 [id number] NEMUNAITIS, Emergency [address] [place] [address] Room: ERBed: [facility] PAYERS PAYERS ENCOUNTER GUARANTOR PAYER SUBSCRIBER SOURCE 09/05/2018 TARI Raimundo [id number] Primary TARI A YODERDOB: [place] TR Insurance:[facility] [id number] [address] [address]Xwq: GROUPPolicy Number: Repository [id number] (HP) Date: TWP [address] [address]YO: 09/05/2018 Secondary NOT GIVENUNK [place] Insurance:SELF PAY [facility] Number: Effective Repository Date:2018-09-04 09/02/2018 TARI A [id number] Primary TARI A YODERDOB: [place] TR Insurance:[facility] [id number] [address] [address]Ump: GROUPPolicy Number: Repository [id number] (HP) Date: TWP [address] [address]RL: 09/02/2018 Secondary NOT GIVENUNK [place] Insurance:SELF PAY [facility] Number: Effective Repository Date:2018-09-01 08/29/2018 TARI A [id number] Primary TARI A YODERDOB: [place] TR Insurance:[facility] [id number] [place] [address]Gsl: GROUPPolicy Number: Repository .Effective (HP) Date: [address] [place] [address]YW: 08/29/2018 Secondary NOT GIVENUNK [place] Insurance:SELF PAY [facility] Number: Effective Repository Date:2018-08-28 08/28/2018 TARI YODERDOB: Primary TARI YODERDOB: [facility] Insurance:[facility] [id number] [address] [place] [address] POLICYPolicy Number: [id number]: [address]Effective Date: (HP) 08/25/2018 TARI A YODERDOB: Primary TARI A YODERDOB: Mike Schumacher Insurance:[employer] [id number] [facility] PACKAGEPolicy Number: [address], Effective Date: [address] [place] [id number]: [place] [phone] (HP) 08/20/2018 TARI YODERDOB: Primary TARI YODERDOB: [facility] Insurance:SELF [id number] [facility] PAYPolicy Number: [address] [place] [address], Effective [address] [place] [address] [place] [address]Bii: Date:2018-08-19 - [place] [address]Qgg: [id number] Name: (HP)Tel: (000) (HP) (WP) [phone] (WP) 10/28/2017 TARI A YODERDOB: Primary KUNAL ND YODERDOB: Mike Aliceemma [id number] Insurance:[facility] [id number] [facility] [address], Number: [address] [place] [address], [place]ository [place] [phone]: Date: [place] [phone] ()
== END ==
PROVIDERS: Family Provider Family Medicine; PCP Family Medicine; Referring Provider Internal Medicine Hematology & Oncology; Visit Provider Internal Medicine Hematology & Oncology
DX: C92.00 Acute myeloblastic leukemia, not having achieved remission (principal)
CPT/HCPCS: 36430; 86644; 86850; 86900; 86920; 86922; 86965; J7040; P9016; P9035; A4216

== ENCOUNTER → 2018-09-09 08:26 | Outpatient (CLI) | payer OTHER, SELFPAY ==
[2018-09-09 08:39] VITALS: BP 127/71; PULSE 87; RESP 16; TEMP 36.6; O2SAT 99; BMI 34.9
[2018-09-09] MEDS: Acetaminophen 325 MG Tablet 650 MG PO (08:44)
[2018-09-09] MEDS: DiphenhydrAMINE 50 MG/ML Syringe IV (08:44)
[2018-09-09 09:34] VITALS: BP 111/63; PULSE 85; RESP 18; TEMP 36.8; O2SAT 99
--- OUTSIDE RECORDS SUMMARY | 2018-09-09 10:09 | XMS RPT_ITS ---
:1945 Author Organization OHIP Care Team Providers Name Role Phone Stephane Knapp Attending Unavailable Stephane Knapp Referring Unavailable KornhausYariel Primary Care Unavailable Stephane Knapp Attending Unavailable MascStephane khan Referring Unavailable KornhYariel thompson Primary Care Unavailable Stephane Knapp Attending Unavailable Stephane Knapp Referring Unavailable KorYariel monteiro Primary Care Unavailable Stephane Knapp Attending Unavailable Mascerin, Stephane Referring Unavailable KornhausYariel Primary Care Unavailable STEPHANE KNAPP DO Attending Unavailable JACKLYN MCCARTY, DR. VALDEZ Primary Care Unavailable SOWMYA PEREZ Admitting Unavailable SOWMYA PEREZ Attending Unavailable JOSÉ MIGUEL VILLASENOR MD Referring Unavailable SOWMYA PEREZ Primary Care Unavailable JOSÉ MIGUEL VILLASENOR MD Consulting Unavailable PROVIDER, UNKNOWN Consulting Unavailable PROVIDER, UNKNOWN Consulting Unavailable PROVIDER, UNKNOWN Consulting Unavailable JOSÉ MIGUEL VILLASENOR MD Admitting Unavailable JOSÉ MIGUEL VILLASENOR MD Attending Unavailable JOSÉ MIGUEL VILLASENOR MD Primary Care Unavailable JOSÉ MIGUEL VILLASENOR MD Consulting Unavailable PROVIDER, UNKNOWN Consulting Unavailable PROVIDER, UNKNOWN Consulting Unavailable PROVIDER, UNKNOWN Consulting Unavailable HORACE HOANG Admitting Unavailable MOE EDEN Attending Unavailable MASCI, STEPHANE Eubanks Attending Unavailable MOE EDEN Referring Unavailable MASCI, STEPHANE A Referring Unavailable MASCI, STEPHANE A Referring Unavailable MASCI, STEPHANE A Referring Unavailable MASCI, STEPHANE A Referring Unavailable MASCI, STEPHANE A Referring Unavailable MASCI, STEPHANE A Referring Unavailable MASCI, STEPHANE A Referring Unavailable MASCI, TSEPHANE A Referring Unavailable MASCI, STEPHANE A Referring Unavailable MASCI, STEPHANE A Referring Unavailable MASCI, STEPHANE A Referring Unavailable MASCI, STEPHANE A Referring Unavailable GANGELDOROTHY Attending Unavailable IMCA Referring Unavailable IMCA Primary Care Unavailable BENNETT , DOROTHY GENE Attending Unavailable PROBLEMS PROBLEMS DATE TYPE CONDITION / CODE ATTENDING STATUS SOURCE 09/01/2018 Unknown 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, 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89(ICD-10) Repository 08/16/2018 Active Immunodeficiency, [place], Active [place] unspecified / [facility] D84.9(ICD-10) [place] Repository 08/14/2018 Active Acute leukemia of [facility], Active [place]son unspecified cell [facility] type not having [place] achieved remission Repository / C95.00(ICD-10) PROCEDURES PROCEDURES No Procedure Records FoundRESULTS RESULTS PROGRESS Observed: 09/08/2018 Status: COMPLETED Source: [place] 4:08 PM [facility] REPOSITORY HNO ID: [id number]: Samra (True) Guevara: (none)Author Type: Social WorkerType: Progress NotesFiled: 09/08/2018 4:09 PMNote Text:Social Work Problem Referral NoteINFORMATION/REFERRAL : Tari Black 73 year old female was referred byfamily - Name: [facility] for thefollowing reason(s): FMLAPERSONS INTERVIEWED: family - Name: AmmonaINTERVENTION: Information AND Referral Service Co-ordinationAffect/Mood: The patient is noted as patient not presentIDENTIFIED PROBLEMS/NEEDS: FMLA for daughter to care for patientIntervention/Referral to be provided:No further intervention requiredIMPRESSION/PLAN: SW met with patient's daughter to complete FMLA for herto help care for patient. SW completed and provided to doctor darwin/sign. SW then faxed to number provided by daughter and sent copy toscanning.F/U APPOINTMENT: YESENIA Choi ABO RH BLOOD TYPE, Collected: 09/08/2018 Status: P Source: [place] PATIENT 8:30 AM [facility] REPOSITORY Order Comment: PRETRANSFUSION HGB = 9.8 HCT = PERFORMED AT CCFWPRETRANSFUSION PLT = 2 PERFORMED AT CCWCMV NEG? NGive When? 09/09/18 08:30AMIrradiated? NComments: 09/09/18 TYPE CODE TESTS RESULT OUT OF RANGE REFERENCE UNITS LAB B10.0800 Normal O BLOOD TYPE NEGATIVE GEL Performed By: #### B10.0010 #### [facility] [address] [place], [place], [address] PPHR Collected: 09/08/2018 Status: F Source: [place] 8:30 AM [facility] REPOSITORY TYPE CODE TESTS RESULT OUT OF REFERENCE UNITS RANGE LAB U100.0700 [id number] TRANSFUSED PRODUCT: Platelets Apheresis PPHR LR SD COUNT: 1 Performed By: #### U100.0700 #### [facility] - refer to report for specific site [place] ABS GR + CBC Collected: 09/08/2018 Status: F Source: [place] 8:30 AM [facility] REPOSITORY TYPE CODE TESTS RESULT OUT OF REFERENCE UNITS RANGE LAB WWBC High 3.70-11.00 k/uL [place] 11.78 WBC Result Comment: Result rechecked. Sample checked for a clot. LAB WRBC Low 3.90-5.20 m/uL [place] RBC 3.02 LAB WHGB Low 11.5-15.5 g/dL [place] Hemoglobin 9.8 LAB WHCT Low 36.0-46.0 % [place] Hematocrit 29.5 LAB WMCV 80.0-100.0 fL [place] MCV 97.7 LAB WMCH 26.0-34.0 pg [place] MCH 32.5 LAB WMCHC 30.5-36.0 g/dL [place] MCHC 33.2 LAB WRDW High 11.5-15.0 % [place] RDW 19.0 LAB WPLT Low Alert 150-400 k/uL [place] Platelet Cnt <2 Result Comment: Rechecked, called to and read back by: LEONARDO TREVIZO,[id number],BYJOSE MIGUEL LAB WMPV 9.0-12.7 fL [place] Unable to assay. MPV Analytical difficulty. Result Comment: Test performed at: [facility], [address] [place] [address] Rd[address] [place] [address]. LAB ABGRAN Low 1.45-7.50 k/uL Absol Gran 0.00 Count LAB ABSNUC <0.01 k/uL Absolute PRELIM nRBC WBC 12.25 Performed By: #### JAMES, WMRAINEF #### [facility] [address] [place], [place] [address] [place] MANUAL DIFF Collected: 09/08/2018 Status: F Source: [facility] 8:30 AM [facility] ORDERABLE. REPOSITORY TYPE CODE TESTS RESULT OUT OF REFERENCE UNITS RANGE LAB WLYM % [place] 10 [place]ymp% LAB WMON % [place] 1 [place]% LAB WBLAST High 0 % [place] 89 Blast LAB WNRBC High 0 /100 WBC [place] 1 nRBC LAB WRBCM [place] 1+ RBC Morph Result Comment: Ovalocytes Anisocytosis Slight Polychromasia LAB WPLTE [place] Platelet estimate Platelet Est decreased Performed By: #### JAMES, WMANDF #### [facility] [address] [place], [place] [address] CNSW Observed: 09/08/2018 Status: COMPLETED Source: [place] 12:00 AM [facility] REPOSITORY Social Work (HEMAWS) TARI BLACK ([id number]) 1945 FDate Time Provider Qlkpyqrycz66/22/18 SAMRA BERKOWITZ (TRUE) NANNETTEBROWN During your visit today, we recorded the following information about you:YESENIA Christopher 09/08/2018 4:09 PM SignedSocial Work Problem Referral NoteINFORMATION/REFERRAL : Tari Black 73 year old female was referred by family -Name: Sharon, daughter to [facility] Social Work for the following reason(s): FMLAPERSONS INTERVIEWED: family - Name: AlmaINTERVENTION: Information AND Referral Service Co-ordinationAffect/Mood: The patient is noted as patient not presentIDENTIFIED PROBLEMS/NEEDS: FMLA for daughter to care for patientIntervention/Referral to be provided:No further intervention requiredIMPRESSION/PLAN: TRUE met with patient's daughter to complete FMLA for her tohelp care for patient. TRUE completed and provided to doctor to review/sign. TRUEthen faxed to number provided by daughter and sent copy to scanning.F/U APPOINTMENT: Nora Choi As of Date: 09/08/2018(No Known Allergies)Date Reviewed: 08/28/2018Reviewed by: Rox Helton - Fully AssessedReason for Visit: Social Work Services [507] Cmt: FMLAPrescriptions as of 09/08/2018 Sig: ONDANSETRON HCL 8 MG TABLET Take 1 tablet by mouth every * ACYCLOVIR 400 MG TABLET Take 1 tablet by mouth twice * TAMSULOSIN 0.4 MG CAPSULE Take 1 capsule by mouth once * CATHETER 14 FR Insert 1 Each into the urethr* LEVOFLOXACIN 500 MG TABLET Take 1 tablet by mouth once d*Problem List As Of Date 09/08/2018 Noted Resolved Pancytopenia (HCC) [D61.818] INVALID FOR* [...] Constipation [K59.00] INVALID FOR*08/20/2018 Priority: I More... Hx of transfusion [Z92.89] INVALID FOR* More... Status:Closed by SAMRA BERKOWITZ on 09/08/18 [place] CBC Collected: 09/04/2018 Status: F Source: [place] 8:55 AM [facility] REPOSITORY TYPE CODE TESTS RESULT OUT OF REFERENCE UNITS RANGE LAB WWBC 3.70-11.00 k/uL [place] WBC 7.73 LAB WRBC Low 3.90-5.20 m/uL [place] RBC 2.50 LAB WHGB Low 11.5-15.5 g/dL [place] 8.0 Hemoglobin LAB WHCT Low 36.0-46.0 % [place] 24.3 Hematocrit LAB WMCV 80.0-100.0 fL [place] MCV 97.2 LAB WMCH 26.0-34.0 pg [place] MCH 32.0 LAB WMCHC 30.5-36.0 g/dL [place] MCHC 32.9 LAB WRDW High 11.5-15.0 % [place] RDW 18.5 LAB WPLT Low Alert 150-400 k/uL [place] 9 Platelet Cnt LAB WMPV Low 9.0-12.7 fL [place] MPV 8.7 Result Comment: Test performed at: [facility] [place], [address] [place] [address]. LAB ABSNUC <0.01 k/uL Absolute Rechecked, nRBC called to and read back by: Result Comment: JOSHUA BY Lopez MRAIA 0922 TYPE AND SCREEN Collected: 09/04/2018 Status: F Source: [place] 8:51 AM [facility] REPOSITORY Order Comment: PRETRANSFUSION HGB = 8.0 HCT = PERFORMED AT CCFWPRETRANSFUSION PLT = 9 [facility] NEG?* NCMV NEG? NGive When? 09/05 @0900Irradiated? NLeukodepleted? YReason for Type AND Screen/Red Cells: ANEMIA TYPE CODE TESTS RESULT OUT OF RANGE REFERENCE UNITS LAB B10.0800 Normal BLOOD O TYPE GEL NEGATIVE LAB B100.4000 Normal Antibody NEGATIVE Screen Performed By: #### B101.7450 #### [facility] [address] [place], [address] PPHR Collected: 09/04/2018 Status: F Source: [place] 8:51 AM [facility] REPOSITORY TYPE CODE TESTS RESULT OUT OF REFERENCE UNITS RANGE LAB U100.0700 [id number] TRANSFUSED PRODUCT: Platelets Apheresis PPHR LR SD COUNT: 1 Performed By: #### U100.0700 #### [facility] - refer to report for specific site RC Collected: 09/04/2018 Status: F Source: [place] 8:51 AM [facility] REPOSITORY TYPE CODE TESTS RESULT OUT OF REFERENCE UNITS RANGE LAB U100.0000 [id number] TRANSFUSED PRODUCT: T AND S with Crossmatch, Red Cells COUNT: 2 Performed By: #### U100.0000 #### [facility] - refer to report for specific site [place] ABS GR + CBC Collected: 09/01/2018 Status: F Source: [place] 9:06 AM [facility] REPOSITORY TYPE CODE TESTS RESULT OUT OF REFERENCE UNITS RANGE LAB WWBC 3.70-11.00 k/uL [place] 6.74 WBC Result Comment: No clot detected. LAB WRBC Low 3.90-5.20 m/uL [place] RBC 2.85 LAB WHGB Low 11.5-15.5 g/dL [place] 9.0 Hemoglobin LAB WHCT Low 36.0-46.0 % [place] Hematocrit 26.9 LAB WMCV 80.0-100.0 fL [place] MCV 94.9 LAB WMCH 26.0-34.0 pg [place] MCH 31.6 LAB WMCHC 30.5-36.0 g/dL [place] MCHC 33.5 LAB WRDW High 11.5-15.0 % [place] RDW 18.0 LAB WPLT Low 150-400 k/uL [place] 11 Platelet Cnt Result Comment: CALLED TO JOSHUA,LEONARDO,[id number],BYJOSE MIGUEL LAB WMPV 9.0-12.7 fL [place] MPV 11.6 Result Comment: Test performed at: [facility], [address] [place] [address]. LAB ABGRAN Low 1.45-7.50 k/uL Absol Gran Count 0.19 Performed By: #### WAGCBC #### [facility] [address], [place] [address] ABO RH BLOOD TYPE, Collected: 09/01/2018 Status: F Source: [place] PATIENT 8:57 AM [facility] REPOSITORY Order Comment: PRETRANSFUSION PLT = 11 PERFORMED AT [facility] NEG? NGive When? 10Irradiated? N TYPE CODE TESTS RESULT OUT OF RANGE REFERENCE UNITS LAB B10.0800 Normal O BLOOD TYPE NEGATIVE GEL Performed By: #### B10.0010 #### [facility] [address] [place], [address] PPHR Collected: 09/01/2018 Status: F Source: [place] 8:57 AM [facility] REPOSITORY TYPE CODE TESTS RESULT OUT OF REFERENCE UNITS RANGE LAB U100.0700 [id number] TRANSFUSED PRODUCT: Platelets Apheresis PPHR LR SD COUNT: 2 Performed By: #### U100.0700 #### [facility] - refer to report for specific site [place] CBC Collected: 08/28/2018 Status: F Source: [place] 12:34 PM [facility] REPOSITORY TYPE CODE TESTS RESULT OUT OF REFERENCE UNITS RANGE LAB WWBC 3.70-11.00 k/uL [place] 6.44 WBC Result Comment: Result rechecked. LAB WRBC Low 3.90-5.20 m/uL [place] RBC 3.11 LAB WHGB Low 11.5-15.5 g/dL [place] 9.8 Hemoglobin LAB WHCT Low 36.0-46.0 % [place] Hematocrit 29.7 LAB WMCV 80.0-100.0 fL [place] MCV 95.5 LAB WMCH 26.0-34.0 pg [place] MCH 31.5 LAB WMCHC 30.5-36.0 g/dL [place] MCHC 33.0 LAB WRDW High 11.5-15.0 % [place] RDW 17.9 LAB WPLT Low 150-400 k/uL [place] 14 Platelet Cnt Result Comment: Rechecked, called to and read back by: MADELAINE AUGUST,[id number],GUI LAB WMPV 9.0-12.7 fL [place] MPV 11.6 Result Comment: Test performed at: [facility], [address] [place] [address] Rd[address] [place] [address]. LAB ABSNUC <0.01 k/uL Absolute nRBC PRELIM WBC 6.57 Performed By: #### WCBC #### [facility] [address] [place], [place] [id number] ABO RH BLOOD TYPE, Collected: 08/28/2018 Status: F Source: [place] PATIENT 12:30 PM [facility] REPOSITORY Order Comment: PRETRANSFUSION PLT = 14 PERFORMED AT [facility] NEG? NGive When? 08/29 1300Irradiated? N TYPE CODE TESTS RESULT OUT OF RANGE REFERENCE UNITS LAB B10.0800 Normal O BLOOD TYPE NEGATIVE GEL Performed By: #### B10.0010 #### [facility] [address] [place], [address] PPHR Collected: 08/28/2018 Status: F Source: [place] 12:30 PM [facility] REPOSITORY TYPE CODE TESTS RESULT OUT OF REFERENCE UNITS RANGE LAB U100.0700 [id number] TRANSFUSED PRODUCT: Platelets Apheresis PPHR LR SD COUNT: 1 Performed By: #### U100.0700 #### [facility] - refer to report for specific site PROGRESS Observed: 08/28/2018 Status: COMPLETED Source: [place] 11:41 AM CLINIC OTHER CAMPUS REPOSITORY HNO ID: [id number]: Dorothy Sepulveda Jr.Service: (none)Author Type: PhysicianType: Progress [...] Negative.Skin: Negative.Neurological: Negative.Psychiatric/Behavioral: Negative.LAB:CreatinineDate Value Ref Range Nfvhfe1908/19/2018 0.75 0.58 - 0.96 mg/dL Final No results found for: PSAGlucose, Urine (mg/dL)Date Value08/19/2018 Negative Bilirubin, Urine (no units)Date Value08/19/2018 Negative Ketones, Urine (no units)Date Value08/19/2018 Negative Specific [place], Ur (no units)Date Value08/19/2018 1.014 Hemoglobin/Blood,Ur ( [...] encounter diagnosis)PLAN:Stop cathingStop flomaxFu prnMmariano Sepulveda Jr, MD CNOV Observed: 08/28/2018 Status: COMPLETED Source: [place] 11:00 AM [facility]IN[facility] OTHER CAMPUS REPOSITORY Office Visit (AKURFL) TARI BLACK ([id number]) 1945 [facility] Time Provider Cjsfuxhlxv25/11/18 11:00 AM DOROTHY SEPULVEDA JR AKURFL During [...] Negative.Skin: Negative.Neurological: Negative.Psychiatric/Behavioral: Negative.LAB:CreatinineDate Value Ref Range Dvimhw1108/19/2018 0.75 0.58 - 0.96 mg/dL Final No results found for: PSAGlucose, Urine (mg/dL)Date Value08/19/2018 Negative Bilirubin, Urine (no units)Date Value08/19/2018 Negative Ketones, Urine (no units)Date Value08/19/2018 Negative Specific [place], Ur (no units)Date Value08/19/2018 1.014 Hemoglobin/Blood,Ur ( [...] Visit Diagnosis:Urinary retention [R33.9]Order(s):UA DIP, URINE (POC) [[id number]] Order #: [id number] #:[id number] as of 08/28/2018 Sig: ONDANSETRON HCL 8 [...] to improve.Follow-up and Disposition History RecordedEncounter Number: [id number] Status:Closed by DOROTHY SEPULVEDA MD on 08/28/18 [place] MANUAL DIFF Collected: 08/25/2018 Status: F Source: [facility] 1:16 PM [facility] [place] ORDERABLE. REPOSITORY TYPE CODE TESTS RESULT OUT OF REFERENCE UNITS RANGE LAB WLYM % [place] 23 Lymp% LAB WBLAST High 0 % [place] 77 Blast LAB WRBCM [place] RBC Morph Slight Result Comment: Polychromasia Anisocytosis 1+ Ovalocytes LAB WPLTE [place] Platelet estimate Platelet Est decreased Performed By: #### WMANDF, WAGCBC #### [facility] [address] [place] [id number] [place] ABS GR + CBC Collected: 08/25/2018 Status: F Source: [place] 1:16 PM [facility] REPOSITORY TYPE CODE TESTS RESULT OUT OF REFERENCE UNITS RANGE LAB WWBC 3.70-11.00 k/uL [place] WBC 10.58 LAB WRBC Low 3.90-5.20 m/uL [place] RBC 3.25 LAB WHGB Low 11.5-15.5 g/dL [place] 10.2 Hemoglobin LAB WHCT Low 36.0-46.0 % [place] 31.0 Hematocrit LAB WMCV 80.0-100.0 fL [place] MCV 95.4 LAB WMCH 26.0-34.0 pg [place] MCH 31.4 LAB WMCHC 30.5-36.0 g/dL [place] MCHC 32.9 LAB WRDW High 11.5-15.0 % [place] RDW 17.4 LAB WPLT Low 150-400 k/uL [place] 19 Platelet Cnt Result Comment: Called to and read back by: Joshua Knapp's Office 08/25/18 Lis Duque Correct time called 1450 LAB WMPV 9.0-12.7 fL [place] MPV 10.5 Result Comment: Test performed at: [facility] [place], [address] [place] [address]. LAB ABGRAN Low 1.45-7.50 k/uL Absol Gran 0.00 Count LAB ABSNUC <0.01 k/uL Absolute PRELIM nRBC WBC 10.99 Performed By: #### WMANDF, WAGCBC #### [facility] [address] [place], [place] [address] CNCO Observed: 08/25/2018 Status: COMPLETED Source: [place] 12:00 AM [facility] REPOSITORY Letter TextOctober 2017[address] [place] [id number] Ms. [place],The nurses and staff of R518yapeowf unit at [facility] hope this letterfinds you feeling well [...] please feel free to contact me, Camilla [phone] or e-mail [email or web address].Additionally, you will receive a survey in the mail asking you to rate thecare you received while in the hospital. Please take the time to completeand send back the survey. I personally review all the results and wouldappreciate your feedback. Please consider completing this survey for eachindividual visit.Thank you in advance for your participation and thank you for [facility].Sincerely,Camilla Brady [id number] Leukemia Unit CNPN Observed: 08/25/2018 Status: COMPLETED Source: [place] 12:00 AM [facility] REPOSITORY Telephone (FISH) TARI BLACK ([id number]) 1945 FDate Time Provider Hwrticganr23/8/18 STEPHANE KNAPP During your visit today, we recorded the following information about you:Emma Campoverde LPN, DECONTAMINATION TECHNICIAN 08/25/2018 2:53 PM SignedPatient?s identity has been confirmed by name and birthdate: YesCall received from April Rcihey at 2:50 PM to report an urgent [...] 08/25/18 PROGRESS Observed: 08/22/2018 Status: COMPLETED Source: [place] 3:23 PM [facility] REPOSITORY HNO ID: [id number]: Samra (True) Guevara: (none)Author Type: Social WorkerType: Progress NotesFiled: 08/22/2018 3:24 PMNote Text:Social Work Problem Referral NoteINFORMATION/REFERRAL : Tari Black 73 year old female was referred byphysician - Dr. Knapp to [facility] Social Work for the followingreason(s): financial [...] provided completed application to pharmacyto submit to [employer] ([employer]).F/U APPOINTMENT: YESENIA Choi CNSW Observed: 08/22/2018 Status: COMPLETED Source: [place] 12:00 AM [facility] REPOSITORY Social Work (FISH) TARI BLACK ([id number]) 1945 FDate Time Provider Ghfmhtelrn65/5/18 SAMRA BERKOWITZ (TRUE) HEMAWS During your visit [...] provided completed application to pharmacy tosubmit to [employer] ([employer]).F/U APPOINTMENT: Nora Choi As of Date: 08/22/2018(No [...] [place] CBC Collected: 08/20/2018 Status: F Source: [place] 4:20 PM [facility] REPOSITORY TYPE CODE TESTS RESULT OUT OF REFERENCE UNITS RANGE LAB WWBC 3.70-11.00 k/uL [place] WBC 9.47 LAB WRBC Low 3.90-5.20 m/uL [place] RBC 3.19 LAB WHGB Low 11.5-15.5 g/dL [place] 10.0 Hemoglobin LAB WHCT Low 36.0-46.0 % [place] 30.2 Hematocrit LAB WMCV 80.0-100.0 fL [place] MCV 94.7 LAB WMCH 26.0-34.0 pg [place] MCH 31.3 LAB WMCHC 30.5-36.0 g/dL [place] MCHC 33.1 LAB WRDW High 11.5-15.0 % [place] RDW 17.4 LAB WPLT Low 150-400 k/uL [place] 24 Platelet Cnt Result Comment: Result checked and verified LAB WMPV 9.0-12.7 fL [place] MPV 11.4 Result Comment: Test performed at: [facility], [address] [place] [address]. PROGRESS Observed: 08/20/2018 Status: COMPLETED Source: [place] 3:22 PM [facility] REPOSITORY HNO ID: [id number]: Stephane Zuleta: (none)Author Type: PhysicianType: Progress NotesFiled: 08/21/2018 1:04 PMNote Text:Patient referred [facility].HPI: Patient is a 73-year-old female [...] --> [place] locally.Appointment scheduled for 08/[address] [place] [address] 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 Knapp for 08/20. - Follow up with Urology requested; Patient will get phone call toverify date and time; F/u with PCP int med (Dr Avalos) at [facility] on Saturday at 3PM - [...] Few ecchymoses from recentvenipuncture on the forearms.NEUROLOGIC: final finisher forging dies II-XII are grossly intact.ASSESSMENT/PLAN:(C95.00) Acute leukemia not [...] therapy.-Referral to gynecology for assessment urinary retention.Total nzkq-ch-zqzw time was >60 minutes with greater than 45 minutes spentdiscussing the issues outlined above and/or coordinating care.Stephane Kn[place] DO CNOVSP Observed: 08/20/2018 Status: COMPLETED Source: [place] 3:00 PM [facility] REPOSITORY Visit (SP) Office (FISH) [facility] BL[facility] ([id number]) 1945 [facility] Rqyxugwjrw92/3/18 3:00 PM STEPHANE KNAPP During your visit today, we recorded the following information about you: Temperature Pulse Blood pressure Weight 98.9 degrees 88/minute 136/77 98.9 kg Height 1.651 Roman Knapp DO 08/21/2018 1:04 PM SignedPatient referred following hospital discharge for [facility].HPI: Patient is a 73-year-old female with a past medical history significantfor hypertension who was seen by her PCP for increasing fatigue and headache.CBC evidently revealed pancytopenia with 68% blasts on peripheral smear.Patient was [facility].Per recent hospital discharge Principal Problem: Acute leukemia [...] [place] locally. Appointment scheduled for 08/[address] [place] [address] 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 Knapp for 08/20. - Follow up with Urology requested; Patient will get phone call to verify date and time; F/u with PCP int med (Dr Avalos) at [facility] on Saturday at 3PM - [...] Few ecchymoses from recentvenipuncture on the forearms.NEUROLOGIC: final finisher forging dies II-XII are grossly intact.ASSESSMENT/PLAN:(C95.00) Acute leukemia not [...] Referral to gynecology for assessment urinary retention.Total hvde-xn-rscm time was >60 minutes with greater than 45 minutes spentdiscussing the issues outlined above and/or coordinating care.[facility] Provider: MOE DEEN [[id number]]Allergies As of Date: 08/20/2018(No Known Allergies)Date Reviewed: 08/20/2018Reviewed by: Lesli Hook - Fully AssessedReason for Visit: New Patient Evaluation [154]Primary Visit Diagnosis: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 FOR NAUSEADisp: 30 tabletRfl: 5 [place] CBC [SQWCBC] Order #: [id number] FUTUREFollow-up and Disposition History RecordedPrescriptions as of [...] 08/21/18 CNDS Observed: 08/19/2018 Status: COMPLETED Source: [place] 7:03 PM [facility] REPOSITORY HNO ID: [id number]: Moe Mcdanielervice: Hematology/OncologyAuthor Type: PhysicianType: Discharge SummariesFiled: 09/02/2018 11:12 AMNote Text: DISCHARGE SUMMARYPATIENT NAME: Tari Black ADMISSION DATE: 08/14/2018MRN: [id number] DISCHARGE DATE: 08/19/2018ATTENDING PHYSICIAN: Dr Eden Code [...] --> [place] locally.Appointment scheduled for 08/[address] [place] [address] 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 Knapp for 08/20. - Follow up with Urology requested; Patient will get phone call toverify date and time; F/u with PCP int med (Dr Avalos) at [facility] on Saturday at 3PM - [...] of AnemiaSIGNATURE: Harini Cassidy APRN.CNP PAGER/CONTACT #: [phone]: August 20, 2018TIME: 8:32 AMpotential risks of hospital discharge and parameters to return reviewedwith patient in detail. URINALYSIS Collected: 08/19/2018 Status: F Source: [place] 6:35 PM [facility] REPOSITORY TYPE CODE TESTS RESULT OUT OF RANGE REFERENCE UNITS LAB UCOL Yellow Color Yellow LAB [facility] Abnormal Clear Clarity Cloudy Alert LAB UGLUC Negative mg/dL Glucose, Urine Negative LAB UBIL Negative Bilirubin, Urine Negative LAB UKET Negative Ketones, Urine Negative LAB USPG 1.005-1.030 Specific 1.014 [place], Ur LAB UHGB Abnormal Negative 1+ Alert [...] Result rechecked. Performed By: #### UA #### [facility] [address] [place], [place] [id number] Observed: 08/19/2018 Status: F Source: [place] URINE CULTURE 6:35 PM [facility] REPOSITORY Sp. Request/Comment: - Specimen received in preservativeCulture Result - No growth (<1,000 CFU/ml) Performed By: #### URCUL ####[facility] [address] [place], [place] [phone] PLAN OF CARE Observed: 08/19/2018 Status: COMPLETED Source: [place] 3:47 PM [facility] REPOSITORY HNO ID: [id number]: Cristina Kurtz (Business Law Instructor)Service: (none)Author Type: (none)Type: Plan of CareFiled: 08/19/2018 3:51 PMNote Text:PHARMACY BEDSIDE DELIVERY SERVICEPatient Name: Tari BlackN: [id number] marked outpatient medications were Filled at: [facility] anddelivered to the patient's bedside to [...] FLOMAXTake 1 capsule by mouth once daily.DeliveredApril Lacona (Business Law Instructor)PAGER: [phone] 2017 3:47 PM PLAN OF CARE Observed: 08/19/2018 Status: COMPLETED Source: [place] 3:23 PM [facility] [place] REPOSITORY HNO ID: [id number]: Jez (Iglesia) HemalService: UrologyAuthor Type: ResidentType: Plan of CareFiled: 08/19/2018 3:26 PMNote Text:Notified by primary team that they would like to discharge patient todayand have her be seen as outpatient for urinary retention. She wascounseled on ISC v indwelling angel by primary and patient desires toperform ISC.- will arrange o/p urology follow up (requested on [facility])- please have her call urology appt scheduling [phone], if she hasnot heard back about appointment request- send urine culture to r/o UTI as source of retention- minimize anticholinergics, narcotics- aggressive bowel regimen to treat constipationMartín Berumen [id number] NURSING PROG Observed: 08/19/2018 Status: COMPLETED Source: [place] 2:28 PM [facility] REPOSITORY HNO ID: [id number]: Aggie (Rn) LORNA Madridervice: (none)Author Type: Registered NurseType: Nursing Progress NoteFiled: 08/19/2018 7:12 PMNote Text: Nursing Progress NotePatient Name: Tari BlackMRN: [id number] Location: [place] [address]/[id number] Noelw Note:5924-4586: Pt resting in bed on assessment. Pt up to bathroom to urinate.Abdomen more distended today than yesterday. Pt voiding frequently butdoes not feel as though she is emptying bladder. Bladder scan completed,>914cc. FARMWORKER, Harini notified and orders for straight cath being placed.1030: Fluids D/C'd. Straight cath with 825cc output. Pt stated she feltmuch better and pressure was gone.1245: At bedside for atbx. Discussed with family learning how to straightcath pt, gave material for them to review.1400: Working with [employer], Harini Wilburn NP for pt D/T9901-3403: Reviewed D/c papers with pt and family. Answered questions andreviewed medications. Bedside pharm delivered medications. Gave verbalinstructions while demonstrating to pt family how to straight cath pt forurine retention. Family asked questions and verbalized understanding. Homehealth appt scheduled for tomorrow. UA/UC collected and sent to [id number]: Pt discharge home.This note was completed by: Aggie Madrid RN SOCIAL WORK Observed: 08/19/2018 Status: COMPLETED Source: [place] 2:05 PM [facility] REPOSITORY HNO ID: [id number]: Ruba CovarrubiasxService: Social WorkAuthor Type: Social WorkerType: Social WorkFiled: 08/19/2018 2:09 PMNote Text:SOCIAL WORK FOLLOW UP NOTE:CANCER CENTERDate of service:10/2/Avni Black is being seen for a follow [...] CASE MANAGEM Observed: 08/19/2018 Status: COMPLETED Source: [place] 1:59 PM [facility] REPOSITORY HNO ID: [id number]: Shavon (Rn) LORNA Rodriguezervice: Case ManagementAuthor Type: Registered NurseType: Care Mgt Progress NoteFiled: 08/19/2018 3:50 PMNote Text:CARE MANAGEMENT DISCHARGE NOTESERVICE DATE: 08/19/2018SERVICE TIME: 1:59 PM LOS: 5 daysFREEDOM OF CHOICE GIVEN:Yes CM spoke to Tari chen FOCFinancial Disclosure ProvidedThe patient and/or family has been given the Provider List: YesPreference: [facility], [facility], [facility]Case farm operations manager met with patient at bedside. Explained role of RN CaseManager and discharge planning.Pt family at bedside. Pt was open to [facility] at discharge for more self-cathteaching, and clinical RN José Miguel to help do teaching prior to discharge. Ptwill discharge to home address, CM to start referral.CM contacted [facility] for self-cath supplies. CM faxed over script andH AND P and face sheet [facility], stated they can help with supplies, and CM told clinicalRN to send a few days supply home with pt, as takes a few days forHastings to send to patient home.ADDENDUM: 3:49pm HHC at discharge will be [facility] and [facility] 08/20. CM to send discharge summary via allWater Science Technologiesrifundfindr. CM updatedCNP, clinical RN and gave pt information sheet for reference.Family to transport.SIGNATURE: Shavon Rodriguez RN PATIENT NAME: Tari [place]: August 19, 2018 : 1:59 PM PAGER/CONTACT #: [phone] PLAN OF CARE Observed: 08/19/2018 Status: COMPLETED Source: [place] 1:54 PM [facility] REPOSITORY HNO ID: [id number]: Cristina Kurtz (The Highway Girl)Service: (none)Author Type: (none)Type: Plan of CareFiled: 08/19/2018 1:54 PMNote Text:Pharmacy Discharge Medication Service:This patient has elected to [facility] their discharge prescriptions throughthe [facility]. Theprescriptions are currently being processed. A follow-up note will beentered once the prescriptions have been filled and delivered to thepatient. Please contact me with any questions or updates to the patient'sdischarge medications.Cristina Kurtz (The Highway Girl)DCT Contact Info: [phone] PLAN OF CARE Observed: 08/19/2018 Status: COMPLETED Source: [place] 1:53 PM [facility] REPOSITORY HNO ID: [id number]: Cristina Kurtz (The Highway Girl)Service: (none)Author Type: (none)Type: Plan of CareFiled: 08/19/2018 1:53 PMNote Text:HOUSING LIAISON BEDSIDE DELIVERY SURVEY1. Patient to use [facility] Bedside Delivery - YES2. If fax, patient would like us to fax prescriptions to Pharmacy ofchoice a. Pharmacy: b. Location: c. Phone:3. Insurance card on file - N/A4. Credit card for payment - N/A PROGRESS Observed: 08/19/2018 Status: COMPLETED Source: [place] 7:26 AM [facility] REPOSITORY HNO ID: [id number]: Harini (Track Repairer) Sheronvice: Hematology/OncologyAuthor Type: Nurse PractitionerType: Progress NotesFiled: 08/19/2018 [...] 5 mL CUP (MYCOSTATIN) 5 mL ORAL BPUnhlunmrculBRHAK-vqhncx-lzwgpwunn 10 mL oral liquid (BMX 1:1:1) 10 [...] --> [place] locally. Appointmentscheduled for 08/[address] [place] [address] 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 Knapp for 08/20.- Follow up with Urology requested; Patient will get phone call to verifydate and time; F/u with PCP int med (Dr Avalos) at [facility] on Saturday at 3PM- Home care consult for straight cath (Supplies per CM)Medication and Non-Pharmacologic VTE Prophylaxis/Zwdslbqwrrvmjg76/27/18 1515 vte pharmacologic prophylaxis contraindicated (fl,oh)08/14/18 1515 vte non-pharmacologic prophylaxis contraindicated (ms,oh)08/14/18 1515 activity - mobilize patient (ms,ia)SIGNATURE: Harini Cassidy APRN.CNP PATIENT NAME: Tari SanchezTE: August 19, 2018 : 7:26 AM PAGER/CONTACT #: [phone]/MEDICAL ONCOLOGY STAFF:TEACHING PHYSICIAN NOTE OF PERSONAL INVOLVEMENT [...] [place]A in [place]Signed: Moe Marieager Number: [id number] and Time of Service: 08-19-1336Vuuhsjtulgztf by responsible provider. FIBRINOGEN Collected: 08/19/2018 Status: F Source: [place] 5:32 AM [facility] REPOSITORY TYPE CODE TESTS RESULT OUT OF REFERENCE UNITS RANGE LAB FIBCT High 200-400 mg/dL Fibrinogen 424 Performed By: #### FIBCT, PT, PTT, LD6, CMP, PHOS, URIC, CBCDIF #### [facility] [address] [place], [place] [address] PROTIME Collected: 08/19/2018 Status: F Source: [place] 5:32 AM [facility] REPOSITORY TYPE CODE TESTS RESULT OUT OF RANGE REFERENCE UNITS LAB PSEC 9.7-13.0 sec PT 10.9 Sec LAB INR 0.9-1.3 PT 1.0 INR Result Comment: Vitamin K Antagonist (VKA) Therapeutic Range: INR 2 to 3 (Target INR of 2.5) Note: For patients treated with VKA drugs, such as warfarin, the [place] [employer]icians 2012 Guideline recommends [...] Chest 2012, 141:7S-47S Diallo PAZ et al. [facility] 2017, 70: 252-289 Performed By: #### FIBCT, PT, PTT, LD6, CMP, PHOS, URIC, CBCDIF #### [facility] [address] [place] [id number] APTT Collected: 08/19/2018 Status: F Source: [place] 5:32 AM [facility] REPOSITORY TYPE CODE TESTS RESULT [...] laboratory APTT reagent in use throughout the [facility]. Performed By: #### FIBCT, PT, PTT, LD6, CMP, PHOS, URIC, CBCDIF #### [facility] [address], [place] [address] LD Collected: 08/19/2018 Status: F Source: [facility] 5:32 AM [facility] REPOSITORY TYPE CODE TESTS RESULT OUT OF RANGE REFERENCE UNITS LAB LD High 135-214 U/L LD 282 Performed By: #### FIBCT, PT, PTT, LD6, CMP, PHOS, URIC, CBCDIF #### [facility] [address] [place], [place] [address] COMP METABOLIC PANEL Collected: 08/19/2018 Status: F Source: [place] 5:32 AM [facility] [place] REPOSITORY TYPE CODE TESTS RESULT OUT OF REFERENCE UNITS RANGE LAB TP 6.3-8.0 g/dL Protein, Total 6.4 LAB ALB Low 3.9-4.9 g/dL Albumin 3.5 LAB CA 8.5-10.2 mg/dL Calcium, Total 10.0 LAB TBIL 0.2-1.3 mg/dL Bilirubin, 1.0 Total LAB ALKP 34-123 U/L Alkaline 67 Phosphatase LAB AST 13-35 U/L AST 19 LAB GLU High 74-99 mg/dL Glucose 134 Result Comment: The [place] Diabetes Association (ADA) provides guidance for cutoff [...] Standards of Medical Care in Diabetes 2016, [place] [employer]. Diabetes Care. 2016.39(Suppl 1). LAB [...] has been calibrated to be traceable to [employer] An eGFR <60 mL/min/1.73m2 for >3 months is consistent with chronic kidney disease. Refer to KDOQI guidelines for clinical interpretation. In patients with unstable renal function, e.g. those with acute kidney injury, the eGFR may not accurately reflect actual GFR. Performed By: #### FIBCT, PT, PTT, LD6, CMP, PHOS, URIC, CBCDIF #### [facility] [address] [place] [address] PHOSPHORUS Collected: 08/19/2018 Status: F Source: [place] 5:32 AM [facility] REPOSITORY TYPE CODE TESTS RESULT OUT OF REFERENCE UNITS RANGE LAB PHOS 2.7-4.8 mg/dL Phosphorus 3.0 Performed By: #### FIBCT, PT, PTT, LD6, CMP, PHOS, URIC, CBCDIF #### [place] [address] URIC ACID Collected: 08/19/2018 Status: F Source: [place] 5:32 AM [facility] REPOSITORY TYPE CODE TESTS RESULT OUT OF RANGE REFERENCE UNITS LAB URIC Low 2.5-6.6 mg/dL Uric 1.8 Acid Performed By: #### FIBCT, PT, PTT, LD6, CMP, PHOS, URIC, CBCDIF #### [place] [address] CBC AND DIFFERENTIAL Collected: 08/19/2018 Status: F Source: [place] 5:[address] [place] [address] REPOSITORY TYPE CODE TESTS RESULT OUT OF [...] k/uL Abs Lymph 2.53 LAB AMONO % [place]% 4.0 LAB AAMONO <0.87 k/uL Abs [place] 0.29 LAB AEOS % Eosin% 0.0 LAB [...] PTT, LD6, CMP, PHOS, URIC, CBCDIF #### [facility] [address] [place] [address] NURSING PROG Observed: 08/18/2018 Status: COMPLETED Source: [place] 5:28 PM [facility] REPOSITORY HNO ID: [id number]: Aggie (Rn) Julius, LORNAervice: (none)Author Type: Registered NurseType: Nursing Progress NoteFiled: 08/18/2018 5:32 PMNote Text: Nursing Progress NotePatient Name: Tari BlackMRN: [id number] Location: [place] [id number] Yhszo Note:0916: Pt resting in bed on assessment. VSS. Afebrile. Complaint of slightheadache, declined pain meds. Pt stated no rectal pain. Denied nausea,SOB, dizziness.1352: 1 unit of RBC's up and transfusing. VSS. Bxnrlxmy8211: RBC's completed. VSS. Afebrile.1730: Angel removed, pt tolerated wellThis note was completed by: Aggie Madrid RN NUTRITION Observed: 08/18/2018 Status: COMPLETED Source: [place] 4:46 PM [facility] REPOSITORY HNO ID: [id number]: Mechelle Ho) EscuroService: Nutrition TherapyAuthor Type: Registered [...] is 36.26 kg/m?. class 2 obesityRecent Labs 4GLUC 162*BUN 10CREAT 0.74NA 134*K 4.1CHLOR 101CO2 24ALB [...] 5 mL CUP (MYCOSTATIN) 5 mL ORAL ENFgeepufurzfRXHSB-nbodgh-tuyaaqdjh 10 mL oral liquid (BMX 1:1:1) 10 [...] 08/18/18 0659 08/18/18 0700 - 08/19/18 0659Shift 4541-7837 8965-1979 24 Hour Total 2845-8817 3193-1816 4911-0062 24Hour TotalINTAKE PO 480 1125 1125 PO 480 885 885 Supplements (mL) 240 240 IV 950 1040 2340 50 50 NS 0.9% 543 385 5312 Zosyn IV 50 50 150 50 50 Blood Products 301 301 PRBC Intake (mL) 300 300 Packed Red Blood Cells Number of Units 1 1 Shift Total 950 1040 2820 1476 1476OUTPUT Urine 800 1800 2950 2375 2375 Void (ml) 1150 1150 Tube Output ( Indwelling Urinary Catheter 08/15/18 1600 Angel 16Fr) 933 181 8320 2375 2375 # of BMs Number of [...] 3 unitsSIGNATURE: Mechelle Paredes, MS RD LD [facility] PATIENT NAME: Tari BlackDATE: August 18, 2018 : 4:47 PM PAGER: [phone] SOCIAL WORK Observed: 08/18/2018 Status: COMPLETED Source: [place] 1:28 PM [facility] REPOSITORY HNO ID: [id number]: Ruba CovarrubiasxService: Social WorkAuthor Type: Social WorkerType: Social WorkFiled: 08/18/2018 1:30 PMNote Text:SOCIAL WORK FOLLOW UP NOTE:CANCER CENTERDate of service: 08/18/2018Tari Black is being seen for a follow up social work visit.Today's visit includes: patient and numerous family members.TOPICS ADDRESSED: Coping/support. SW completed follow up and patientindicated that she may discharge on following day and [facility]. No other questions or concerns at this time.PLAN: Continue follow up as needed and Provide emotional support topatient/familyF/U APPOINTMENT: YESENIA Long PROGRESS Observed: 08/18/2018 Status: COMPLETED Source: [place] 8:21 AM [facility] REPOSITORY HNO ID: [id number]: Isabella Navarrete) MohrService: Hematology/OncologyAuthor Type: Nurse PractitionerType: Progress NotesFiled: 08/18/2018 4:32 PMNote Text:ONCOLOGY LEUKEMIA PROGRESS NOTESERVICE DATE: 08/18/2018SERVICE TIME: 8:21 AMSubjectiveINTERIM HISTORY- Feeling well, rectal pain improving- Tentatively planning for discharge tomorrow, leaning towards receivingtreatment in [place].REVIEW OF SYSTEMSGENERAL: No fever or chills.HEENT: No [...] 5 mL CUP (MYCOSTATIN) 5 mL ORAL KDBgdknglgcagHZWTZ-snfntt-thelugbme 10 mL oral liquid (BMX 1:1:1) 10 [...] towards [place] locally.Appointment scheduled for 08/[address] [place] [address] 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 Knapp for 08/20.Medication and Non-Pharmacologic VTE Prophylaxis/Kdjgvuhhhzzqry51/27/18 1515 vte pharmacologic prophylaxis contraindicated (fl,oh)08/14/18 1515 vte non-pharmacologic prophylaxis contraindicated (fl,oh)08/14/18 151 activity - mobilize patient (fl,oh)VTE Prophylaxis: Contraindicated due to thrombocytopenia.SIGNATURE: Isabella Govea APRN.CNP PATIENT NAME: Tari BlackDATE: August 18, 2018 : 8:21 AM PAGER/CONTACT #: [phone]/MEDICAL ONCOLOGY STAFF:TEACHING PHYSICIAN NOTE OF PERSONAL INVOLVEMENT [...] for anemia.Afebrile on zosyn.Signed: Moe Marieager Number: [phone] and Time of Service: Date: 15-81-73Topynkmwokywc by responsible provider. APTT Collected: 08/18/2018 Status: F Source: [place] 2:14 AM [facility] REPOSITORY TYPE CODE TESTS RESULT [...] laboratory APTT reagent in use throughout the [facility]. Sample checked for a clot. Performed By: #### PTT, FIBCT, PT, LD6, CMP, PHOS, URIC, CBCDIF #### [facility] [address] [place] [id number] FIBRINOGEN Collected: 08/18/2018 Status: F Source: [place] 2:14 AM [facility] [place] REPOSITORY TYPE CODE TESTS RESULT OUT OF REFERENCE UNITS RANGE LAB FIBCT High 200-400 mg/dL Fibrinogen 462 Result Comment: Result rechecked. Sample checked for a clot. Performed By: #### PTT, FIBCT, PT, LD6, CMP, PHOS, URIC, CBCDIF #### [facility] [address], [place] [address] PROTIME Collected: 08/18/2018 Status: F Source: [place] 2:14 AM [facility] REPOSITORY TYPE CODE TESTS RESULT OUT OF RANGE REFERENCE UNITS LAB PSEC 9.7-13.0 sec PT 10.9 Sec Result Comment: Sample checked for a clot. LAB INR 0.9-1.3 PT INR 1.0 Result Comment: Vitamin K Antagonist (VKA) Therapeutic Range: INR 2 to 3 (Target INR of 2.5) Note: For patients treated with VKA drugs, such as warfarin, the [place] [employer] Physicians 2012 Guideline recommends [...] Chest 2012, 141:7S-47S Diallo RA, et al. [facility] 2017, 70: 252-289 Sample checked for a clot. Performed By: #### PTT, FIBCT, PT, LD6, CMP, PHOS, URIC, CBCDIF #### [facility] [address], [place] [address] LD Collected: 08/18/2018 Status: F Source: [facility] 2:14 AM [facility] REPOSITORY TYPE CODE TESTS RESULT OUT OF RANGE REFERENCE UNITS LAB LD High 135-214 U/L LD 303 Performed By: #### PTT, FIBCT, PT, LD6, CMP, PHOS, URIC, CBCDIF #### [facility] [address] [place], [place] [address] COMP METABOLIC PANEL Collected: 08/18/2018 Status: F Source: [place] 2:14 AM [facility] REPOSITORY TYPE CODE TESTS [...] 74-99 mg/dL Glucose 162 Result Comment: The [place] Diabetes Association (ADA) provides guidance for cutoff [...] Standards of Medical Care in Diabetes 2016, [place] [employer]. Diabetes Care. 2016.39(Suppl 1). LAB [...] PT, LD6, CMP, PHOS, URIC, CBCDIF #### [facility] [address] [place] [address] PHOSPHORUS Collected: 08/18/2018 Status: F Source: [place] 2:14 AM [facility] REPOSITORY TYPE CODE TESTS RESULT OUT OF REFERENCE UNITS RANGE LAB PHOS Low 2.7-4.8 mg/dL Phosphorus 2.4 Performed By: #### PTT, FIBCT, PT, LD6, CMP, PHOS, URIC, CBCDIF #### [place] [address] URIC ACID Collected: 08/18/2018 Status: F Source: [place] 2:14 AM [facility] REPOSITORY TYPE CODE TESTS RESULT OUT OF RANGE REFERENCE UNITS LAB URIC Low 2.5-6.6 mg/dL Uric 1.8 Acid Performed By: #### PTT, FIBCT, PT, LD6, CMP, PHOS, URIC, CBCDIF #### [place] [address] CBC AND DIFFERENTIAL Collected: 08/18/2018 Status: F Source: [place] 2:14 AM [facility] REPOSITORY TYPE CODE TESTS RESULT [...] k/uL Abs Lymph 1.94 LAB AMONO % [place]% 0.0 LAB AAMONO <0.87 k/uL Abs [place] 0.00 LAB AEOS % Eosin% 0.0 LAB [...] PT, LD6, CMP, PHOS, URIC, CBCDIF #### [place] [address] [place] [address] TYPE AND SCREEN Collected: 08/18/2018 Status: F Source: [place] 2:13 AM [facility] REPOSITORY TYPE CODE TESTS RESULT OUT OF REFERENCE UNITS RANGE LAB %ABR ABO/RH(D) O NEGATIVE LAB % Antibody NEG Screen Performed By: #### TSCR #### [facility] [address] [place] [address] NURSING PROG Observed: 08/17/2018 Status: COMPLETED Source: [place] 11:07 AM [facility] REPOSITORY HNO ID: [id number]: Melanie (Rn) LORNA Zamarripaervice: (none)Author Type: Registered NurseType: Nursing Progress NoteFiled: 08/17/2018 2:54 PMNote Text: Nursing Progress NotePatient Name: Tari BlackMRN: [id number] Location: [place] [id number] Poiep Note:0745: Pt off the floor to radiology [...] 2V FRONTAL/LAT Observed: 08/17/2018 Status: F Source: [place] 8:01 AM [facility] REPOSITORY * * *Final Report* [...] Thoracic aorta is mildly tortuous.Other: .IMPRESSION:As aboveTranscriptionist: SILVIAB Transcribe Date/Time: Aug 17 2018 1:12PDictated by : DINORAH LABABEDE, MDThis examination was interpreted and the report reviewed and electronically signed by: DINORAH MANCIA MD on Aug 17 2018 1:13PM [id number] PROGRESS Observed: 08/17/2018 Status: COMPLETED Source: [place] 7:10 AM [facility] REPOSITORY HNO ID: [id number]: Horace DohertyeService: Hematology/OncologyAuthor Type: PhysicianType: Progress NotesFiled: 08/18/2018 5:47 [...] 5 mL CUP (MYCOSTATIN) 5 mL ORAL DKIbqbbvaxfukXMMTI-bxtvlt-vkcetckfa 10 mL oral liquid (BMX 1:1:1) 10 [...] Pt reports 3-day course of rectal pain NEUROPHYSIOLOGICAL TECHNICIAN- No visible signs of hemorrhoids, fissure or [...] PT/OT: eval AND treatMedication and Non-Pharmacologic VTE Prophylaxis/Uuncmjsozxogle70/27/18 151 vte pharmacologic prophylaxis contraindicated (ms,oh)08/14/18 151 vte non-pharmacologic prophylaxis contraindicated (fl,oh)08/14/181514 activity - mobilize patient (ms,oh)VTE Prophylaxis: Contraindicated severe thrombocytopeniaSIGNATURE: Sandy Villatoro APRN.REGIONAL SALES LEADER PATIENT NAME: Tari Washington: August 17, 2018 : 7:10 AM PAGER/CONTACT #: [phone]/MEDICAL ONCOLOGY STAFF:TEACHING PHYSICIAN NOTE OF PERSONAL INVOLVEMENT [...] cytometry. Awaiting thre final results ofBMBx. The [facility] conducts standard qualityassurance validation for all diagnosed patients new to the cancerinstitute and this will also be performed during this admission.?Discussed therapeutic options including 7+3 (with or without HCT),hypomethylating agents versus clinical trial ([facility] study). For clinicaltrial eligibility, BMBx results required Rectal pain, CT negative, rectalsurgery following. She is immunocompromised and will need transfusionsupport.?Horace Hoang MD PhD MPHAssociate StaffHematologic Oncology and Blood DisordersPager [phone] of service: 08/17/2018 FIBRINOGEN Collected: 08/17/2018 Status: F Source: [place] 5:02 AM [facility] REPOSITORY TYPE CODE TESTS RESULT OUT OF REFERENCE UNITS RANGE LAB FIBCT High 200-400 mg/dL Fibrinogen 434 Performed By: #### FIBCT, PT, PTT, LD6, CMP, PHOS, URIC, CBCDIF #### [facility] [address], [place] [address] PROTIME Collected: 08/17/2018 Status: F Source: [place] 5:02 AM [facility] REPOSITORY TYPE CODE TESTS RESULT OUT OF RANGE REFERENCE UNITS LAB PSEC 9.7-13.0 sec PT 11.2 Sec LAB INR 0.9-1.3 PT 1.1 INR Result Comment: Vitamin K Antagonist (VKA) Therapeutic Range: INR 2 to 3 (Target INR of 2.5) Note: For patients treated with VKA drugs, such as warfarin, the [place] [employer] 2012 Guideline recommends [...] Chest 2012, 141:7S-47S Diallo RA, et al. [facility] 2017, 70: 252-289 Performed By: #### FIBCT, PT, PTT, LD6, CMP, PHOS, URIC, CBCDIF #### [facility] [address] [place], [place] [address] APTT Collected: 08/17/2018 Status: F Source: [place] 5:02 [facility] REPOSITORY TYPE CODE TESTS RESULT OUT OF [...] laboratory APTT reagent in use throughout the [facility]. Performed By: #### FIBCT, PT, PTT, LD6, CMP, PHOS, URIC, CBCDIF #### [facility] [address] [address] [place], [place] [address] LD Collected: 08/17/2018 Status: F Source: [facility] 5:02 AM [facility] REPOSITORY TYPE CODE TESTS RESULT OUT OF RANGE REFERENCE UNITS LAB LD High 135-214 U/L LD 293 Performed By: #### FIBCT, PT, PTT, LD6, CMP, PHOS, URIC, CBCDIF #### [facility] [address] [place], [place] [address] COMP METABOLIC PANEL Collected: 08/17/2018 Status: F Source: [place] 5:02 AM [facility] REPOSITORY TYPE CODE TESTS RESULT [...] 74-99 mg/dL Glucose 132 Result Comment: The [place] Diabetes Association (ADA) provides guidance for cutoff [...] Standards of Medical Care in Diabetes 2016, [place] [employer]. Diabetes Care. 2016.39(Suppl 1). LAB [...] PTT, LD6, CMP, PHOS, URIC, CBCDIF #### [facility] [place] [address] [place] [address] PHOSPHORUS Collected: 08/17/2018 Status: F Source: [place] 5:02 AM [facility] REPOSITORY TYPE CODE TESTS RESULT OUT OF REFERENCE UNITS RANGE LAB PHOS 2.7-4.8 mg/dL Phosphorus 3.0 Performed By: #### FIBCT, PT, PTT, LD6, CMP, PHOS, URIC, CBCDIF #### [facility] [address] [address] [place] [address] URIC ACID Collected: 08/17/2018 Status: F Source: [place] 5:02 AM [facility] REPOSITORY TYPE CODE TESTS RESULT OUT OF RANGE REFERENCE UNITS LAB URIC 2.5-6.6 mg/dL Uric 2.6 Acid Performed By: #### FIBCT, PT, PTT, LD6, CMP, PHOS, URIC, CBCDIF #### [facility] [place] [address] [place] [address] CBC AND DIFFERENTIAL Collected: 08/17/2018 Status: F Source: [place] 5:02 AM [facility] REPOSITORY TYPE CODE TESTS RESULT [...] k/uL Abs Lymph 2.82 LAB AMONO % [place]% 0.0 LAB AAMONO <0.87 k/uL Abs [place] 0.00 LAB AEOS % Eosin% 0.0 LAB [...] PTT, LD6, CMP, PHOS, URIC, CBCDIF #### [facility] [address] [place], [place] [address] UA W/CULT IF INDICATED Collected: 08/17/2018 Status: F Source: [place] 4:52 AM [facility] REPOSITORY TYPE CODE TESTS RESULT OUT OF RANGE REFERENCE UNITS LAB UCOL Yellow Color Yellow LAB [facility] Clear Clarity Clear LAB UGLUC Negative mg/dL Glucose, Urine Negative LAB UBIL Negative Bilirubin, Urine Negative LAB UKET Negative Ketones, Urine Negative LAB USPG 1.005-1.030 Specific 1.012 [place], Ur LAB UHGB Abnormal Negative 1+ Alert [...] RBC 3-5 Performed By: #### UACII #### [facility] [address], [place] [id number] NURSING PROG Observed: 08/16/2018 Status: COMPLETED Source: [place] 11:13 PM [facility] REPOSITORY HNO ID: [id number]: Kristal (Rn) Mark, LORNAervice: (none)Author Type: Registered NurseType: Nursing Progress NoteFiled: 08/16/2018 11:14 PMNote Text: Nursing Progress NotePatient Name: Tari BlackMRN: [id number] [place] [facility]I493-04 Onkxx Note:2215: Pt febrile 100.4, all other VSS. Due for WINTERS, quality control assessor notified.Tylenol given.2230: BC x2 drawn AND sent. Zosyn started. X-ray paged for chest x-ray.This note was completed by: Kristal Flores RN Observed: 08/16/2018 Status: F Source: [place] BLOOD CULTURE 10:43 PM [facility] REPOSITORY Culture Result - No growth 5 days Performed By: #### BLCUL ####[facility] [address] [place], [place] [phone] Observed: 08/16/2018 Status: F Source: [place] BLOOD CULTURE 10:43 PM [facility] REPOSITORY Culture Result - No growth 5 days Performed By: #### BLCUL ####[facility] [address] [place], [place] [phone] NURSING PROG Observed: 08/16/2018 Status: COMPLETED Source: [place] 12:27 PM [facility] REPOSITORY HNO ID: [id number]: Melanie (Rn) Marilou, RNService: (none)Author Type: Registered NurseType: Nursing Progress NoteFiled: 08/16/2018 12:32 PMNote Text: Nursing Progress NotePatient Name: Tari BlackMRN: [id number] Location: [place] [address]/[id number] Ogtdi Note:0730: Pt resting in bed at this time. Assessment completed per flowsheet -pt c/o 8/10 rectal pain. 10mg of oxycodone administered per MAR. Pt deniesHA, SOB, dizziness, N/V, diarrhea. Pt states last BM was on Saturday -will admin scheduled lactulose. POC reviewed with pt - will transfuse 1uPRBCs today. Pt verbalized understanding. Will continue to monitor.0930: PRBC transfusion started. AM lisinopril held d/t c/o dizziness, BP104/52. MAlexandr Villatoro NP notified.1205: 5mg of oxy administered for c/o 4/10 rectal pain.1217: PRBC transfusion complete. VSS, no s/s transfusion reaction.This note was completed by: Melanie Zamarripa, MADELAINE CONSULT PROG Observed: 08/16/2018 Status: COMPLETED Source: [place] 8:50 AM [facility] REPOSITORY HNO ID: [id number]: Cristian (Igleisa) BeckService: ColorectalAuthor Type: ResidentType: Consult Progress NoteFiled: 08/16/2018 9:09 AMNote Text:.GENERAL SURGERYPROGRESS NOTEService Date: August 16, 2018Patient Name: Tari BlackMRN: [id number] Day: 3OR DATE:* No surgery found No [...] Dr. Hilliard.Cristian Black MD, PhDGeneral Surgery, PGY-1Pager: [phone]; Date: 08/16/2018Time: 8:51 AMPatient Active Hospital Problem [...] 2.5* 2.3*Liver Function, Amylase, AND LipaseRecent Labs 08/16/1800TPROT 6.6 6.6 6.8ALB 3.6* 3.5* 3.9ALT 11 12 13AST 14 16 15ALKPHOS 64 62 67TBILI 1.4* 1.4* 1.2Intake and Output:Date 08/15/18 07 - 08/16/18 0659 08/16/18 07 - 08/17/18 0659Shift 7464-7087 6059-7983 3114-8593 24 Hour Total 3707-5333 5955-94102789-8468 24 Hour TotalINTAKE PO 320 320 PO 320 320 Supplements (mL) 0 0 IV 131 476 7001 NS 0.9% 569 700 2647 Blood Products 1 1 Packed Red Blood [...] 5 mL CUP (MYCOSTATIN) 5 mL ORAL JCQzwjyyqtcojEHRQG-uorswf-paphgeylj 10 mL oral liquid (BMX 1:1:1) 10 [...] file. PROGRESS Observed: 08/16/2018 Status: COMPLETED Source: [place] 7:59 AM [facility] REPOSITORY HNO ID: [id number]: Sandy ([facility]) ScullyService: Hematology/OncologyAuthor Type: Nurse PractitionerType: Progress NotesFiled: [...] 5 mL CUP (MYCOSTATIN) 5 mL ORAL XVPdzyykjrhiaPJKCF-xdnaka-rphygchox 10 mL oral liquid (BMX 1:1:1) 10 [...] Pt reports 3-day course of rectal pain NEUROPHYSIOLOGICAL TECHNICIAN- No visible signs of hemorrhoids, fissure or [...] PT/OT: eval AND treatMedication and Non-Pharmacologic VTE Prophylaxis/Hgzocvyddncxew31/27/181514 vte pharmacologic prophylaxis contraindicated (fl,oh)08/14/181514 vte non-pharmacologic prophylaxis contraindicated (fl,oh)08/14/181514 activity - mobilize patient (fl,oh)VTE Prophylaxis: Contraindicated thrombocytopeniaSIGNATURE: Sandy Villatoro APRN.REGIONAL SALES LEADER PATIENT NAME: Tari SanchezTE: August 16, 2018 : 7:59 AM PAGER/CONTACT #: [phone]/MEDICAL ONCOLOGY STAFF:TEACHING PHYSICIAN NOTE OF PERSONAL INVOLVEMENT IN CARE?I have reviewed the progress note obtained and documented by the licensedindependent practitioner and I personally participated in the keycomponents. I have discussed the case and management of the patient's carewith the licensed independent practitioner. 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 Patient admitted for inductionchemotherapy.??The [facility] conducts standardquality assurance validation for all diagnosed patients new to the cancerinstitute and this will also be performed during this admission.Awaiting BM biopsy final result. Rectal pain, CT negative, rectal surgeryfollowing. She is immunocompromised and will need transfusion support.?Kathy England StaffPager:[phone] 2017 1:14 PM PROTIME Collected: 08/16/2018 Status: F Source: [place] 5:08 AM [facility] REPOSITORY TYPE CODE TESTS RESULT OUT OF RANGE REFERENCE UNITS LAB PSEC 9.7-13.0 sec PT 10.7 Sec LAB INR 0.9-1.3 PT 1.0 INR Result Comment: Vitamin K Antagonist (VKA) Therapeutic Range: INR 2 to 3 (Target INR of 2.5) Note: For patients treated with VKA drugs, such as warfarin, the [place] [employer]icians 2012 Guideline recommends [...] Chest 2012, 141:7S-47S Diallo PAZ et al. [facility] 2017, 70: 252-289 Performed By: #### PT, PTT, CMP, PHOS, URIC, CBCDIF #### [facility] [place] [address] [place], [place] [address] APTT Collected: 08/16/2018 Status: F Source: [place] 5:08 AM [facility] REPOSITORY TYPE CODE TESTS RESULT [...] laboratory APTT reagent in use throughout the [facility]. Performed By: #### PT, PTT, CMP, PHOS, URIC, CBCDIF #### [facility] [place] [address] [place], [place] [address] COMP METABOLIC PANEL Collected: 08/16/2018 Status: F Source: [place] 5:08 AM [facility] REPOSITORY TYPE CODE [...] 74-99 mg/dL Glucose 124 Result Comment: The [place] [employer] (ADA) provides guidance for cutoff [...] Standards of Medical Care in Diabetes 2016, [place] [employer]. Diabetes Care. 2016.39(Suppl 1). LAB [...] PT, PTT, CMP, PHOS, URIC, CBCDIF #### [facility] [address] [place] [id number] PHOSPHORUS Collected: 08/16/2018 Status: F Source: [place] 5:08 AM [facility] REPOSITORY TYPE CODE TESTS RESULT OUT OF REFERENCE UNITS RANGE LAB PHOS 2.7-4.8 mg/dL Phosphorus 2.7 Performed By: #### PT, PTT, CMP, PHOS, URIC, CBCDIF #### [facility] [address] [place] [address] URIC ACID Collected: 08/16/2018 Status: F Source: [place] 5:08 AM [facility] REPOSITORY TYPE CODE TESTS RESULT OUT OF RANGE REFERENCE UNITS LAB URIC 2.5-6.6 mg/dL Uric 3.4 Acid Performed By: #### PT, PTT, CMP, PHOS, URIC, CBCDIF #### [place] [address] CBC AND DIFFERENTIAL Collected: 08/16/2018 Status: F Source: [place] 5:08 AM [facility] REPOSITORY TYPE CODE TESTS RESULT [...] k/uL Abs Lymph 1.77 LAB AMONO % [place]% 0.0 LAB AAMONO <0.87 k/uL Abs [place] 0.00 LAB AEOS % Eosin% 0.0 LAB AAEOS <0.46 k/uL Abs Eosin 0.00 LAB ABASO % Baso% 0.0 LAB AABASO <0.11 k/uL Abs Baso 0.00 LAB ABLAST High 0 % Blast% 68.7 LAB ANIIMI Anisocytosis Present LAB OVAIMI Ovalocytes Few LAB PLTEST Platelet Estimate Platelet estimate decreased LAB DTYP DTYPE Manual Diff Performed By: #### PT, PTT, CMP, PHOS, URIC, CBCDIF #### [facility] [address] [address], [place] [address] NURSING PROG Observed: 08/16/2018 Status: COMPLETED Source: [place] 2:52 AM [facility] REPOSITORY HNO ID: [id number]: Kristal (Rn) Mark, LORNAervice: (none)Author Type: Registered NurseType: Nursing Progress NoteFiled: 08/16/2018 6:48 AMNote Text: Nursing Progress NotePatient Name: Tari BlackMRN: [id number] Location: [place] [id number] Fhpwv Note:0230: Lysis labs resulted Hgb 7.5 AND Phos 2.5. square dance caller notified. No ordersreceived.This note was completed by: Kristal Flores RN FIBRINOGEN Collected: 08/16/2018 Status: F Source: [place] 12:20 AM [facility] REPOSITORY TYPE CODE TESTS RESULT OUT OF REFERENCE UNITS RANGE LAB FIBCT High 200-400 mg/dL Fibrinogen 424 Performed By: #### FIBCT, PT, PTT, LD6, CMP, PHOS, URIC, CBCDIF #### [facility] [address] [place], [place] [address] PROTIME Collected: 08/16/2018 Status: F Source: [place] 12:20 AM [facility] REPOSITORY TYPE CODE TESTS RESULT OUT OF RANGE REFERENCE UNITS LAB PSEC 9.7-13.0 sec PT 10.9 Sec LAB INR 0.9-1.3 PT 1.0 INR Result Comment: Vitamin K Antagonist (VKA) Therapeutic Range: INR 2 to 3 (Target INR of 2.5) Note: For patients treated with VKA drugs, such as warfarin, the [place] [employer]icians 2012 Guideline recommends [...] Chest 2012, 141:7S-47S Diallo RA, et al. [facility] 2017, 70: 252-289 Performed By: #### FIBCT, PT, PTT, LD6, CMP, PHOS, URIC, CBCDIF #### [facility] [address] [place], [place] [address] APTT Collected: 08/16/2018 Status: F Source: [place] 12:20 AM [facility] REPOSITORY TYPE CODE TESTS RESULT [...] laboratory APTT reagent in use throughout the [facility]. Performed By: #### FIBCT, PT, PTT, LD6, CMP, PHOS, URIC, CBCDIF #### [facility] [address], [place] [address] LD Collected: 08/16/2018 Status: F Source: [facility] 12:20 AM [facility] REPOSITORY TYPE CODE TESTS RESULT OUT OF RANGE REFERENCE UNITS LAB LD High 135-214 U/L LD 268 Performed By: #### FIBCT, PT, PTT, LD6, CMP, PHOS, URIC, CBCDIF #### [facility] [address] [place], [place] [address] COMP METABOLIC PANEL Collected: 08/16/2018 Status: F Source: [place] 12:20 AM [facility] REPOSITORY TYPE CODE TESTS RESULT [...] 74-99 mg/dL Glucose 130 Result Comment: The [place] Diabetes Association (ADA) provides guidance for cutoff [...] Standards of Medical Care in Diabetes 2016, [place] [employer]. Diabetes Care. 2016.39(Suppl 1). LAB [...] PTT, LD6, CMP, PHOS, URIC, CBCDIF #### [place] [address] PHOSPHORUS Collected: 08/16/2018 Status: F Source: [place] 12:20 AM [facility] REPOSITORY TYPE CODE TESTS RESULT OUT OF REFERENCE UNITS RANGE LAB PHOS Low 2.7-4.8 mg/dL Phosphorus 2.5 Performed By: #### FIBCT, PT, PTT, LD6, CMP, PHOS, URIC, CBCDIF #### [facility] [address] [place] [address] URIC ACID Collected: 08/16/2018 Status: F Source: [place] 12:20 AM [facility] REPOSITORY TYPE CODE TESTS RESULT OUT OF RANGE REFERENCE UNITS LAB URIC 2.5-6.6 mg/dL Uric 3.4 Acid Performed By: #### FIBCT, PT, PTT, LD6, CMP, PHOS, URIC, CBCDIF #### [place] [address] CBC AND DIFFERENTIAL Collected: 08/16/2018 Status: F Source: [place] 12:20 AM [facility] REPOSITORY TYPE CODE TESTS RESULT [...] k/uL Abs Lymph 2.15 LAB AMONO % [place]% 0.0 LAB AAMONO <0.87 k/uL Abs [place] 0.00 LAB AEOS % Eosin% 0.0 LAB [...] PTT, LD6, CMP, PHOS, URIC, CBCDIF #### [facility] [address] [place], [place] [address] PROGRESS Observed: 08/15/2018 Status: COMPLETED Source: [place] 9:21 PM [facility] REPOSITORY HNO ID: [id number]: Aggie Huertas CTS (Ct)ervice: RadiologyAuthor Type: Clinical TechnicianType: Progress NotesFiled: 08/15/2018 9:21 PMNote Text: Radiology Service Progress NotePATIENT NAME: Tari BlackN: [id number] OF SERVICE: August 15, 2018TIME: 9:21 PMPATIENT IDENTITY VERIFICATION COMPLETED USING TWO (2) METHODS: Patientconfirmed name verbally and ID band matches..PATIENT GENDER DATA: Female. status: : NoBreastfeeding status: NO.PATIENT RELEVANT IMPLANT DATA REVIEWED: Not ApplicableRADIOLOGY DEPARTMENT: CT; Exam(s) Completed: Abdomen/PelvisPERIPHERAL IV DATA: Inpatient: [facility] documentationSIGNED BY: Aggie Huertas, CTSept2017 9:[address] ABD/PEL W IVCON Observed: 08/15/2018 Status: F Source: [place] 9:20 PM [facility] REPOSITORY * * *Final Report* * *DATE OF EXAM: Aug 15 2018 9:20PM [facility] 0530 - CT ABD/PEL W IVCON / [...] ACUTE PROCESS IN THE ABDOMEN AND PELVIS. Cut Off Tender Glass: YOSEF Transcribe Date/Time: Aug 15 2018 9:50PDictated by : Ritchie TSE examination was interpreted and the report reviewed and electronically signed by: NIC SARAVIA MD on Aug 16 2018 8:26AM [id number] NURSING PROG Observed: 08/15/2018 Status: COMPLETED Source: [place] 4:36 PM [facility] REPOSITORY HNO ID: [id number]: Hillary (Madelaine) LORNA Solitarioervice: (none)Author Type: Registered NurseType: Nursing Progress NoteFiled: 08/15/2018 6:11 PMNote Text: Nursing Progress NotePatient Name: Tari BlackMRN: [id number] Location: [place] [id number] Bipuw Note:1545- pt. Complaining of feeling full. Pt. Has not been able to void sincestraight cath at 1030am. Bladder scan done- 712m. FARMWORKER Harini notified.Angel placed by MADELAINE Branch. 640 ml out. Vss. Afebrile. Denies pain. Nonausea. Assessment done per flowsheet. Supportive family at bedside.1700- oral contrast started. Verbal education provided to pt and familyregarding procedure.1810- Oral contrast finished. CT notified.This note was completed by: Hillary Solitario RN CONSULT PROG Observed: 08/15/2018 Status: COMPLETED Source: [place] 4:05 PM [facility] REPOSITORY HNO ID: [id number]: Brigitte Hernandez: ColorectalAuthor Type: PhysicianType: Consult Progress [...] 5 mL CUP (MYCOSTATIN) 5 mL ORAL HMNezjavmghyqJSTPS-vnbymb-danenapod 10 mL oral liquid (BMX 1:1:1) 10 [...] Ht 5'5.945[verified by Piper HERNANDEZ[ (1.68m) Wt 212 lb 11.9 oz (96.5kg) EnQ663% BMI 34.40 kg/(m2).Physical Exam PerformedAbdo: soft and non tenderDiscussed with FARMWORKER: not neutropenic, can perform DREPerianal exam with Top Polisher (nurse on duty): slight swelling posteriorlywith tenderness; [...] 15, 2018 : 4:05 PM PAGER/CONTACT #: [phone] Staff:I saw, interviewed and examined the patient.agree [...] MD PROCEDURE Observed: 08/15/2018 Status: COMPLETED Source: [place] 1:44 PM [facility] REPOSITORY HNO ID: [id number]: Xuan Lomax (Fel)Service: Hematology/OncologyAuthor Type: FellowType: ProceduresFiled: 08/15/2018 1:47 PMNote Text:BEDSIDE PROCEDURE NOTEPROCEDURE DATE: August 15, 2018PROCEDURE START TIME: 10:30 [facility] PROCEDURALIST: INDRA PattonISTANT(S): 1INFORMED CONSENT: Informed Consent [...] 2% Buffered Lidocaine and 10 mls of 1%LidocaineProcedure:Grows Up biopsy system was used.,Using aseptic technique, bone [...] 15, 2018 : 1:44 PM PAGER/CONTACT #: [phone] SOCIAL WORK Observed: 08/15/2018 Status: COMPLETED Source: [place] 1:36 PM [facility] REPOSITORY HNO ID: [id number]: Ruba CovarrubiasxService: Social WorkAuthor Type: Social WorkerType: Social WorkFiled: 08/15/2018 2:06 PMNote Text:PSYCHOSOCIAL ASSESSMENTDate of Service: August 15, 2018Tari Black is a 73 year old female being seen for initial social workassessment.Diagnosis: Acute Leukemia [facility] Oncologist: Dr. [facility] Oncologist: Du of Care: Curative intentToday's visit includes: self/patientFamily History of Cancer: Not discussed*SUPPORT NETWORK:Marital status: ( in [place]).Parent(s): deceasedChild/Children: Yes.certified caregiver arrangements needed: NoMetropolitan State Hospitale [facility] Provider: Not discussedCommunity Services: NoFaith Identified: YesReligion/Spirituality: [facility] these practices or beliefs that may affect or influence treatment? No*EMPLOYMENT/FINANCIAL/HEALTH INSURANCE:Employment: RetiredIncome source: Supported financially by familyInsurance: [facility] PolicyPrescription coverage: NoCOBRAIs the patient appropriate for referral to [facility] COBRAAssistance program? NoFinancial Distress: Patient uncertain at this time.State Line: No*LIVING ARRANGEMENTS:Type: House- independent ranchResides with: 2 [...] at this timeHealth Care Durable Power of Medical Billing Coordinator: No and declined at this timeScanned into [...] of a cell phone. Patient is oldorder Gnosticist however one of the less strict categories. Patient reportedthat her [place] however did not elaborateregarding circumstances. SW made [facility] familymembers. 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 NoAdvance Directive:Current Advance Directive: Living WillIn Chart: NoCare Manager Food Beverage Attempted to Assist with AD Completion: NoUnable [...] Admission: NoneHas the Patient Been in a Residential Facility in the Past 30 days? NoSOCIAL:Living Arrangement: HomeLives With: 2 daughters and a son in law and grandchildrenFinancial Resources: N/APrimary Contact: Extended Emergency Contact InformationPrimary Emergency Contact: Natalie Black Wispjafb: SonSecondary Emergency Contact: Ion Dinero Pciifcgt: SonSupportive: YesOther Important Patient Contacts: NoneCaregiver Assessment:Caregiver [...] - 0I feel financially burdened by my ees-gs-xdpadz expenses for myprescription medication: Disagree completely - [...] OF CHOICE EXPLAINED:N/APOTENTIAL TRANSITION PLANSHomeTo Be DeterminedCase farm operations manager met with patient at bedside. Explained role [...] WEEKEND DISCHARGE ANTICIPATED. You may page weekend sample case porter [phone] any immediate discharge planning needs. Primary team to continue tomanage and evaluate patient?s care. Fifth Hand will reassess on Saturdayfor ongoing coordination of discharge plan.SIGNATURE: Shavon Rodriguez RN PATIENT NAME: Tari SanchezTE: August 15, 2018 : 1:15 PM PAGER/CONTACT #: [phone] FIBRINOGEN Collected: 08/15/2018 Status: F Source: [place] 12:25 PM [facility] REPOSITORY TYPE CODE TESTS RESULT OUT OF REFERENCE UNITS RANGE LAB FIBCT High 200-400 mg/dL Fibrinogen 450 Performed By: #### FIBCT, PT, PTT, CMP, PHOS, CBCDIF #### [facility] [address] [place], [place] [address] PROTIME Collected: 08/15/2018 Status: F Source: [place] 12:25 PM [facility] REPOSITORY TYPE CODE TESTS RESULT OUT OF RANGE REFERENCE UNITS LAB PSEC 9.7-13.0 sec PT 10.8 Sec LAB INR 0.9-1.3 PT 1.0 INR Result Comment: Vitamin K Antagonist (VKA) Therapeutic Range: INR 2 to 3 (Target INR of 2.5) Note: For patients treated with VKA drugs, such as warfarin, the [place] [employer] 2012 Guideline recommends [...] MICHEL, et al. Chest 2012, 141:7S-47S Diallo PAZ et al. [facility] 2017, 70: 252-289 Performed By: #### FIBCT, PT, PTT, CMP, PHOS, CBCDIF #### [facility] [address], [place] [address] APTT Collected: 08/15/2018 Status: F Source: [place] 12:25 PM [facility] REPOSITORY TYPE CODE TESTS RESULT OUT OF [...] laboratory APTT reagent in use throughout the [facility]. Performed By: #### FIBCT, PT, PTT, CMP, PHOS, CBCDIF #### [facility] [address] [place], [place] [address] COMP METABOLIC PANEL Collected: 08/15/2018 Status: F Source: [place] 12:25 PM [facility] REPOSITORY TYPE CODE TESTS RESULT OUT OF REFERENCE UNITS RANGE LAB TP 6.3-8.0 g/dL Protein, Total 6.8 LAB ALB 3.9-4.9 g/dL Albumin 3.9 LAB CA 8.5-10.2 mg/dL Calcium, Total 9.6 LAB TBIL 0.2-1.3 mg/dL Bilirubin, 1.2 Total LAB ALKP 34-123 U/L Alkaline 67 Phosphatase LAB AST 13-35 U/L AST 15 LAB GLU High 74-99 mg/dL Glucose 106 Result Comment: The [place] [employer] Association (ADA) provides guidance for cutoff [...] Standards of Medical Care in Diabetes 2016, [place] [employer]. Diabetes Care. 2016.39(Suppl 1). LAB [...] FIBCT, PT, PTT, CMP, PHOS, CBCDIF #### [facility] [address] [place], [place] [address] PHOSPHORUS Collected: 08/15/2018 Status: F Source: [place] 12:25 PM [facility] REPOSITORY TYPE CODE TESTS RESULT OUT OF REFERENCE UNITS RANGE LAB PHOS Low 2.7-4.8 mg/dL Phosphorus 2.3 Performed By: #### FIBCT, PT, PTT, CMP, PHOS, CBCDIF #### [facility] [address] [place], [place] [address] CBC AND DIFFERENTIAL Collected: 08/15/2018 Status: F Source: [place] 12:25 PM [facility] REPOSITORY TYPE CODE TESTS RESULT [...] k/uL Abs Lymph 2.29 LAB AMONO % [place]% 0.0 LAB AAMONO <0.87 k/uL Abs [place] 0.00 LAB AEOS % Eosin% 0.0 LAB [...] FIBCT, PT, PTT, CMP, PHOS, CBCDIF #### [facility] [address], [place] [address] FLT3 GENE MUTATIONS Collected: 08/15/2018 Status: F Source: [place] 11:05 [facility] REPOSITORY TYPE CODE TESTS RESULT OUT OF REFERENCE UNITS RANGE LAB FLTRES Duplicate Result request Result Comment: Account Credited SEE RESULT FOR HNMNGS. DMCKNIGHT 08 15 2018 Performed By: #### FLT3 #### [facility] [address] [place], [place] [address] FLOW CYTO HOLD Collected: 08/15/2018 Status: F Source: [place] SAMPLE 11:05 [facility] REPOSITORY TYPE CODE TESTS RESULT OUT OF REFERENCE UNITS RANGE LAB FLOHLD A bone marrow sample was Flow Cyto received for potential Hold Sample flow cytometry studies. Following morphologic review of the bone marrow, flow cytometric studies will be ordered by the hematopathologist if testing is indicated. Please see the corresponding bone marrow surgical pathology report. Result Comment: [id number] Performed By: #### FLOHLD #### [facility] [address] [place], [place] [address] FISH FOR PML/ROBERT Collected: 08/15/2018 Status: F Source: [place] 11:05 [facility] REPOSITORY TYPE CODE TESTS RESULT OUT OF REFERENCE UNITS RANGE LAB APLRES APL Result (NOTE) Result Comment: FISH results will follow in [facility] surgical pathology case #[id number] when complete. Performed By: #### APLFSH #### [place] [address] [place], [place] [address] FISH FOR BCR/ABL1 Collected: 08/15/2018 Status: F Source: [place] 11:05 [facility] REPOSITORY TYPE CODE TESTS RESULT OUT OF REFERENCE UNITS RANGE LAB BCRRES BCR Result (NOTE) Result Comment: FISH results will follow in [facility] surgical pathology case #[id number] when complete. Performed By: #### BCRFSH #### [facility] [address] [place], [place] [address] BCR-ABL QUALITATIVE Collected: 08/15/2018 Status: F Source: [place] 11:05 [facility] REPOSITORY TYPE CODE TESTS RESULT OUT OF REFERENCE UNITS RANGE LAB BCRQLR BCR-ABL Qualitative (NOTE) Result Comment: Please refer to [facility] Surgical Pathology report, Performed By: #### BCRQL, NUCBUF #### [facility] [address] [place], [place] [address] DNA EXTRACTION (BUFFY) Collected: 08/15/2018 Status: F Source: [place] 11:05 [facility] REPOSITORY TYPE CODE TESTS RESULT OUT OF REFERENCE UNITS RANGE LAB NUCBC DNA Extration BC (NOTE) Result Comment: This specimen was received and successfully processed for future DNA purification should molecular testing be needed. Specimens will be available for 3 years from the date of collection. To order testing on this specimen for [facility] patients, please place an [facility] order for DNA and RNA Extractions for Clinical Testing (SQNUCADD). To order testing for patients outside of the [facility] system, please request DNA and RNA Extraction for Clinical Testing, order code [id number]. If additional paperwork is required for testing, please send completed forms via secure email to . Performed By: #### BCRQL, NUCBUF #### [facility] [address] [place], [place] [address] ALL B CELL MRD Collected: 08/15/2018 Status: F Source: [place] 11:05 [facility] REPOSITORY TYPE CODE TESTS RESULT OUT OF REFERENCE UNITS RANGE LAB BMRDR ALL View B Cell MRD results in Scanned Documents link when available. Performed By: #### BMRD #### [facility] [address] [place], [place] [address] SURGICAL PATHOLOGY Observed: 08/15/2018 Status: C Source: [place] 11:05 [facility] REPOSITORY ADDITIONAL PROCEDURES PRESENTSpecimen originated from [facility] #: [id number] Physician: HORACE HOANG MDFINHILARIA DIAGNOSISBONE MARROW ASPIRATE, [...] fusion BCR (22q11.2) and ABL1 (9q34) probe ([employer], [place], [place]) was used in this interphase FISH assay todetect the presence of the Totz chromosome. This test should not beused for the detection of minimal residual disease.Pathologist Interpretation: Dorothy Kraft M.D., PhD.ANALYTE SPECIFIC REAGENT (ASR) DISCLAIMERThis test was developed and its performance characteristics determined by[facility] Pathology and Laboratory MedicineMedstar Good Samaritan Hospitaltitfort worth ([facility]). It has not been cleared or approved by the FDA.-[facility] is regulated under CLIA as qualified to [...] from this sample, and cDNA prepared byreverse food service clerk. Multiplex RT-PCR studies were performed usingfluorescently labeled primers for BCR/ABL1 fusion transcripts ribfbolzrh274 (e13a2, e14a2, e13a3, e14a3), p190 (e1a2, e1a3), p230 (e19a2) and m9h8zvzduhuv. As an amplification control, primers for wild-type BCR are alsoincluded. PCR products are analyzed by capillary electrophoresis. Thelimit of detection of this assay is approximately 1% BCR/ABL1 normalizedcopy numbers (BCRABL1/ABL1). This test was developed and its performance characteristics determined by[facility] Path[facility] and Laboratory Medicine [place]([facility]). It has not been cleared or approved by the FDA. [facility] isregulated under CLIA as qualified to perform [...] this may relate to the instability of EES6cfxzdrvzc.Method:DNA is isolated from the specimen provided. Regions [...] normal cytogenetics: biological and clinical implications. BloodRev.2013;27:13-22.2. Fede WALKER, G?wilder M, Devendra ME, et al. Prognostic relevance ofintegrated genetic profiling in acute myeloid leukemia. N Engl J Med. 2011Mar 22;366 (12):1079-89.3. Melvin H, Carl E, Radha Marroquin,. et al. Diagnosis and management of AMLin adults: 2017 ELN recommendations from an international expert panel. Blood 129, 723458 (2017).This test was developed and its performance characteristics determined by[facility] Pathology and Laboratory MedicineInstitfort worth (-[facility]). It has not been cleared or approved [...] PML (15q22) and ROBERT (17q21) probes([employer], [place], [place]) were used in this interphase FISH assayto detect the presence of the t(15;17) chromosome translocation. Thisresult does not exclude and should not be used for detection of minimalresidual disease.Pathologist Interpretation: Dorothy Kraft M.D., PhD.ANALYTE SPECIFIC REAGENT (ASR) DISCLAIMERThis test was developed and its performance characteristics determined by[facility] Pathology and Laboratory MedicineInstitfort worth (-[facility]). It has not been cleared or approved by the FDA.RT-[facility]MI is regulated under CLIA as qualified to perform high-complexitytesting. This test is used for clinical purposes. It should not be regardedas investigational or for research.NANCY/maninder 08/18/2018Procedure Pathologist: Dorothy Cruise, M.D., Ph.D.Electronic Signature CLINICAL DATAACUTE LEUKEMIAGROSS DESCRIPTIONA. [...] Totally submitted in onecassette.Gross examination performed at [facility], [address] [place] [address] 08/16/2018 12:53:58 AMPatient ID #: [id number] of Report: 08/19/2018Date of Procedure: 08/15/2018Date of Receipt: 08/15/2018Submitted by: HORACE HOANG MDLocation: [id number] interpretation performed at [place] [address]. CHROMOSOME BM Collected: 08/15/2018 Status: F Source: [place] 11:05 AM [facility] REPOSITORY TYPE CODE TESTS RESULT OUT OF REFERENCE UNITS RANGE LAB CRBM Chromosome Analysis (NOTE) Result Comment: Performing Pathologist: Dr. Shant Ledesma MD Interpretation: Lab Analysis No: [id number] Doctor/Pathologist: Natalya/Erika Surgical Pathology No: [id number] Clinical diagnosis: Pancytopenia Specimen Type: Bone Marrow [...] Pathologist Interpretation: Shant Ledesma MD Performed by [facility]ology and Laboratory Medicine [place] [facility], [address] [place] [address] Toll free: Performed By: #### CHRBMH #### [place] [address] [place] [id number] HEM NEPL NGS PNL Collected: 08/15/2018 Status: F Source: [place] BM 11:05 AM [facility] REPOSITORY TYPE CODE TESTS RESULT OUT OF REFERENCE UNITS RANGE LAB HNMNG Hem (NOTE) Jonah NGS Pnl BM Result Comment: Please see linked document for full results. Performed By: #### HNMNGS #### [place] [address] [place] [id number] B-ALL FUS DET PANEL Collected: 08/15/2018 Status: F Source: [place] 11:05 AM [facility] REPOSITORY TYPE CODE TESTS RESULT OUT OF REFERENCE UNITS RANGE LAB ALLFUS Cancelled BALLFP, by clinician Interp Result Comment: Per performing lab. AR Account Credited Performed By: #### BALLFP #### [place] [address] [place] [id number] NURSING PROG Observed: 08/15/2018 Status: COMPLETED Source: [place] 10:53 AM [facility] REPOSITORY HNO ID: [id number]: Sharon (Rn) LORNA Wardervice: (none)Author Type: Registered NurseType: Nursing Progress NoteFiled: 08/15/2018 10:54 AMNote Text: Nursing Progress NotePatient Name: Tari BlackMRN: [id number] Location: [place] [id number] Mrazm Note:1030: pt c/o distention, urgency to void and discomfort. Prior to BMBx,this RN along with RN Sarina abad cathed pt. Pt's output was 700cc. Willcontinue to monitor.This note was completed by: Sharon Ward RN NUTRITION Observed: 08/15/2018 Status: COMPLETED Source: [place] 9:25 AM [facility] REPOSITORY HNO ID: [id number]: Mechelle Ho) EscuroService: Nutrition TherapyAuthor Type: Registered DietitianType: NutritionFiled: 08/15/2018 12:46 PMNote Text:NUTRITION THERAPY INITIAL ASSESSMENTSERVICE DATE: 08/15/2018SERVICE TIME: 09RECOMMENDED MALNUTRITION DIAGNOSIS: NO MALNUTRITION IDENTIFIEDNUTRITION CARE PLAN:Problem, [...] 59 kgResting Metabolic Rate: 1480Estimated kilocalorie needs: 6989-7926 kilocalories determined by 15-20kcal/kg dosing wt/dEstimated protein needs: 90 grams determined by 1.5 g/kg Dosing weightEstimated fluid needs: 9385-5603 milliliters based on 1 mL per kcalNUTRITION [...] 5 mL CUP (MYCOSTATIN) 5 mL ORAL OXEahruyyydpiGXDQA-hnezdm-tbfzdjjni 10 mL oral liquid (BMX 1:1:1) 10 [...] BIDDate 08/14/18 0700 - 08/15/18 0659 08/15/18 0700 - 08/16/18 0[address] [phone] 3531-9106 0108-5674 24 Hour Total 0020-2273 [id number] 24 Hour TotalINTAKE PO 120 120 PO [...] RD LD CNSC FAND PATIENT NAME: Tari BlackDATE: August 15, 2018 : 9:25 AM PAGER: [phone] PROGRESS Observed: 08/15/2018 Status: COMPLETED Source: [place] 7:44 AM [facility] REPOSITORY HNO ID: [id number]: Horace Reinarvice: Hematology/OncologyAuthor Type: PhysicianType: Progress NotesFiled: [...] 5 mL CUP (MYCOSTATIN) 5 mL ORAL SUKnukhgwtmkaOVSYC-bhuajs-qbphiqonx 10 mL oral liquid (BMX 1:1:1) 10 [...] - Following Dr DohertyeMedication and Non-Pharmacologic VTE Prophylaxis/Eomzijvdgpftin61/27/18 1515 vte pharmacologic prophylaxis contraindicated (fl,oh)08/14/18 1515 vte non-pharmacologic prophylaxis contraindicated (fl,oh)08/14/18 1515 activity - mobilize patient (fl,oh)SIGNATURE: Harini Cassidy APRN.CNP PATIENT NAME: Tari BlackDATE: August 15, 2018 : 7:44 AM PAGER/CONTACT #: [phone]/MEDICAL ONCOLOGY STAFF:TEACHING PHYSICIAN NOTE OF PERSONAL INVOLVEMENT [...] acute leukemia. Patient admitted for inductionchemotherapy. The [facility] [place] conducts standardquality assurance validation for all diagnosed patients new to the cancerinstitute and this will also be performed during this admission. Had BMBxtoday. Flow cytometry results awaited. Supportive care and transfusionsupport.?Horace Hoang MD PhD MPHAssociate StaffHematologic Oncology and Blood DisordersPager [phone] of service: 08/15/2018 FIBRINOGEN Collected: 08/15/2018 Status: F Source: [place] 4:27 AM [facility] REPOSITORY TYPE CODE TESTS RESULT OUT OF REFERENCE UNITS RANGE LAB FIBCT High 200-400 mg/dL Fibrinogen 450 Performed By: #### FIBCT, PTT, LD6, CMP, PHOS, URIC, CBCDIF #### [facility] [address] [place], [place] [address] APTT Collected: 08/15/2018 Status: F Source: [place] 4:27 AM [facility] REPOSITORY TYPE CODE TESTS RESULT [...] laboratory APTT reagent in use throughout the [facility]. Performed By: #### FIBCT, PTT, LD6, CMP, PHOS, URIC, CBCDIF #### [facility] [address] [place], [place] [address] LD Collected: 08/15/2018 Status: F Source: [facility] 4:27 AM [facility] REPOSITORY TYPE CODE TESTS RESULT OUT OF RANGE REFERENCE UNITS LAB LD High 135-214 U/L LD 263 Performed By: #### FIBCT, PTT, LD6, CMP, PHOS, URIC, CBCDIF #### [facility] [address] [place], [place] [address] COMP METABOLIC PANEL Collected: 08/15/2018 Status: F Source: [place] 4:27 AM [facility] REPOSITORY TYPE CODE TESTS [...] 74-99 mg/dL Glucose 129 Result Comment: The [place] Diabetes Association (ADA) provides guidance for cutoff [...] Standards of Medical Care in Diabetes 2016, [place] [employer]. Diabetes Care. 2016.39(Suppl 1). LAB [...] PTT, LD6, CMP, PHOS, URIC, CBCDIF #### [facility] [address] [place], [place] [address] PHOSPHORUS Collected: 08/15/2018 Status: F Source: [place] 4:27 AM [facility] REPOSITORY TYPE CODE TESTS RESULT OUT OF REFERENCE UNITS RANGE LAB PHOS Low 2.7-4.8 mg/dL Phosphorus 2.5 Performed By: #### FIBCT, PTT, LD6, CMP, PHOS, URIC, CBCDIF #### [facility] [address] [place], [place] [address] URIC ACID Collected: 08/15/2018 Status: F Source: [place] 4:27 AM [facility] REPOSITORY TYPE CODE TESTS RESULT OUT OF RANGE REFERENCE UNITS LAB URIC 2.5-6.6 mg/dL Uric 4.0 Acid Performed By: #### FIBCT, PTT, LD6, CMP, PHOS, URIC, CBCDIF #### [facility] [address] [place], [place] [address] CBC AND DIFFERENTIAL Collected: 08/15/2018 Status: F Source: [place] 4:27 AM [facility] REPOSITORY TYPE CODE TESTS RESULT [...] k/uL Abs Lymph 2.08 LAB AMONO % [place]% 0.0 LAB AAMONO <0.87 k/uL Abs [place] 0.00 LAB AEOS % Eosin% 0.0 LAB [...] PTT, LD6, CMP, PHOS, URIC, CBCDIF #### [facility] [address] [place] [id number] SURGICAL PATHOLOGY Observed: 08/15/2018 Status: F Source: [place] 12:00 AM [facility] REPOSITORY PROCEDURE REPORTSpecimen originated from [facility] #: [id number] Physician: HARINI CASSIDY, DECLANSPECIMEN SUBMITTEDA: PERIPHERAL BLOOD PROCEDURE(S)FLOW CYTOMETRY - ACUTE [...] NegativeCD5 T-cells NegativeCD7 T/NK-cells NegativeCD8 T-cell subset YtdhbbvoLO84 B-cell subset GzfuerdeKI86o Myeloid RfzkobtlLF19 Myeloid CrszmabfNT95 Monocyte IkvhpmjfAO85 Myeloid JgnsrbieKK12 T/NK cell CcmtmjpsGD75 B-cell FoqdfggcRL52 B-cell JaqroauaDO72 B-cell EwgeomxvQK64 Myeloid UooxkwgtIH88 Blast RkmlblyfAD78 Activation ZfxizkbbMG35 Winters-leukocyte ShbbtudjOY65 Myeloid Positive (dim)CD65 Myeloid YkmmlkskLY057 Blast PositiveHLADR Class II MHC Positive (dim)Interpretation:Flow [...] was developed and its performance characteristics determined by[facility] MedicineInstitute ([facility]). It has not been cleared or [...] 08/15/2018Submitted: HARINI CASSIDY, CNPDiagnostic interpretation performed at [facility], [address] [place], [place] [address]. FIBRINOGEN Collected: 08/14/2018 Status: F Source: [place] 9:30 PM [facility] REPOSITORY TYPE CODE TESTS RESULT OUT OF REFERENCE UNITS RANGE LAB FIBCT High 200-400 mg/dL Fibrinogen 438 Performed By: #### FIBCT, PTT, CMP, PHOS, URIC, CBCDIF #### [place] [address] APTT Collected: 08/14/2018 Status: F Source: [place] 9:30 [facility] REPOSITORY TYPE CODE TESTS RESULT OUT [...] laboratory APTT reagent in use throughout the [facility]. Performed By: #### FIBCT, PTT, CMP, PHOS, URIC, CBCDIF #### [place] [address] COMP METABOLIC PANEL Collected: 08/14/2018 Status: F Source: [place] 9:30 [facility] REPOSITORY TYPE CODE TESTS RESULT OUT OF REFERENCE UNITS RANGE LAB TP 6.3-8.0 g/dL Protein, Total 6.8 LAB ALB 3.9-4.9 g/dL Albumin 3.9 LAB CA 8.5-10.2 mg/dL Calcium, Total 9.8 LAB TBIL 0.2-1.3 mg/dL Bilirubin, 1.3 Total LAB ALKP 34-123 U/L Alkaline 65 Phosphatase LAB AST 13-35 U/L AST 17 LAB GLU High 74-99 mg/dL Glucose 192 Result Comment: The [place] Diabetes Association (ADA) provides guidance for cutoff [...] Standards of Medical Care in Diabetes 2016, [place] [employer]. Diabetes Care. 2016.39(Suppl 1). LAB [...] FIBCT, PTT, CMP, PHOS, URIC, CBCDIF #### [facility] [address] [place], [place] [id number] PHOSPHORUS Collected: 08/14/2018 Status: F Source: [place] 9:30 PM [facility] REPOSITORY TYPE CODE TESTS RESULT OUT OF REFERENCE UNITS RANGE LAB PHOS Low 2.7-4.8 mg/dL Phosphorus 2.1 Performed By: #### FIBCT, PTT, CMP, PHOS, URIC, CBCDIF #### [facility] [address] [place], [place] [address] URIC ACID Collected: 08/14/2018 Status: F Source: [place] 9:30 PM [facility] REPOSITORY TYPE CODE TESTS RESULT OUT OF RANGE REFERENCE UNITS LAB URIC 2.5-6.6 mg/dL Uric 4.6 Acid Performed By: #### FIBCT, PTT, CMP, PHOS, URIC, CBCDIF #### [address] [address] CBC AND DIFFERENTIAL Collected: 08/14/2018 Status: F Source: [place] 9:30 PM [facility] REPOSITORY TYPE CODE TESTS RESULT [...] k/uL Abs Lymph 2.75 LAB AMONO % [place]% 0.0 LAB AAMONO <0.87 k/uL Abs [place] 0.00 LAB AEOS % Eosin% 0.0 LAB [...] FIBCT, PTT, CMP, PHOS, URIC, CBCDIF #### [facility] [address] [place], [place] [address] XR CHEST 2V FRONTAL/LAT Observed: 08/14/2018 Status: F Source: [place] 8:33 PM [facility] REPOSITORY * * *Final [...] MANCIA MD on Aug 14 2018 10:29PM [id number] CONFIRM BLOOD TYPE Collected: 08/14/2018 Status: F Source: [place] 6:00 PM [facility] REPOSITORY TYPE CODE TESTS RESULT OUT OF REFERENCE UNITS RANGE LAB %ABR O ABO/RH(D) NEGATIVE Performed By: #### CONABO #### [facility] [address] [place], [place] [address] NURSING PROG Observed: 08/14/2018 Status: COMPLETED Source: [place] 5:04 PM [facility] REPOSITORY HNO ID: [id number]: Piper (Rn) LORNA Robertervice: (none)Author Type: Registered NurseType: Nursing Progress NoteFiled: 08/14/2018 6:53 PMNote Text: Nursing Progress NotePatient Name: Tari BlackMRN: [id number] Location: [place] [id number] Kwfdx Note:1500: pt arrived on unit via wheelchair, stable condition, supportivefamily at bedside. Assessments complete per flow sheets.VSS, height andweight verified with GISELLE Spivey. Pt oriented to room and unit. Fallsrisk assessment and plan complete, pt compliant. Pt c/o 5/10 dullheadache behind the eyes. FARMWORKER Kyara cartagena at bedside.1630: 22g in R AC placed, labs drawn and sent, NS @ 100ml/hr initiated.1745: hgb resulted 7.7, on-call MD notified. Con ABO drawn and sent.This note was completed by: Piper Robert RN CT BRAIN WO IVCON Observed: 08/14/2018 Status: F Source: [place] 5:04 PM [facility] REPOSITORY * * *Final Report* * *DATE OF EXAM: Aug 14 2018 5:04PM [facility] 0504 - CT BRAIN WO IVCON / [...] MRI confirmation is recommended to exclude infiltrative process.Cut Off Tender Glass: YOSEF Transcribe Date/Time: Aug 14 2018 5:06PDictated by : ANT MURPHY MDThis examination was interpreted and the report reviewed and electronically signed by: ANT MURPHY MD on Aug 14 2018 5:10PM [id number] ECG COMPLETE W Observed: 08/14/2018 Status: F Source: [place] INTERPRETATION 4:38 PM [facility] REPOSITORY NAME : SERENA BLACKID : [id number] : 1945 Gender : FemaleRace : CaucasianORD : [id number] Procedure Date : Aug 14 2018 16:38:06Edit Date : Aug 15 2018 11:55:22 Diagnosis:NORMAL SINUS RHYTHMNORMAL ECGConfirmed by TAHMINA LOGAN M.D. ([id number]) on 08/15/2018 11:55:17 AM Ventricular Rate : 97 BPMAtrial Rate : 97 BPMP-R Interval : 184 msQRS Duration : 84 msQ-T Interval : 330 msQTC Calculation(Bezet) : 419 msP [place] : 25 degreesR [place] : 1 degreesT [place] : 6 degrees Test Reason : ALL Location : 17 : [id number] Overread By : DOREEN Mccloud,MOUINEdited By : DOREEN Mccloud,MOUINReferred By : ,Acquired by : MEGGAN KHAN PROGRESS Observed: 08/14/2018 Status: COMPLETED Source: [place] 4:37 PM [facility] REPOSITORY HNO ID: [id number]: Yoandy () FrenchyService: RadiologyAuthor Type: TechnicianType: Progress NotesFiled: 08/14/2018 4:58 PMNote Text: Radiology Service Progress NotePATIENT NAME: Tari BlackMRN: [id number] OF SERVICE: August 14, 2018TIME: 4:37 PMPATIENT IDENTITY VERIFICATION COMPLETED USING TWO (2) METHODS: Patientconfirmed name verbally and ID band matches..PATIENT GENDER DATA: Female. status: : NoBreastfeeding status: NO.PATIENT RELEVANT IMPLANT DATA REVIEWED: YesRADIOLOGY DEPARTMENT: CT; Exam(s) Completed: BrainPERIPHERAL IV DATA: Not applicableSIGNED BY: CRYSTAL Ordonez2017 4:37 PM LD Collected: 08/14/2018 Status: F Source: [facility] 4:30 PM [facility] REPOSITORY TYPE CODE TESTS RESULT OUT OF RANGE REFERENCE UNITS LAB LD High 135-214 U/L LD 674 Result Comment: Results may be falsely increased due to interference by hemolysis. Suggest reorder as clinically indicated. Performed By: #### LD6, PTT, FIBCT, CMP, PHOS, URIC, HIV12C, HREMOP, CBCDIF, STFREV #### [facility] [address] [id number] APTT Collected: 08/14/2018 Status: F Source: [place] 4:30 PM [facility] REPOSITORY TYPE CODE TESTS RESULT [...] laboratory APTT reagent in use throughout the [facility]. Performed By: #### LD6, PTT, FIBCT, CMP, PHOS, URIC, HIV12C, HREMOP, CBCDIF, STFREV #### [facility] [address] [place], [place] [address] FIBRINOGEN Collected: 08/14/2018 Status: F Source: [place] 4:30 PM [facility] REPOSITORY TYPE CODE TESTS RESULT OUT OF REFERENCE UNITS RANGE LAB FIBCT High 200-400 mg/dL Fibrinogen 428 Performed By: #### LD6, PTT, FIBCT, CMP, PHOS, URIC, HIV12C, HREMOP, CBCDIF, STFREV #### [facility] [address] [place], [place] [address] COMP METABOLIC PANEL Collected: 08/14/2018 Status: F Source: [place] 4:30 PM [facility] REPOSITORY TYPE CODE TESTS RESULT [...] 74-99 mg/dL Glucose 120 Result Comment: The [place] Diabetes Association (ADA) provides guidance for cutoff [...] Standards of Medical Care in Diabetes 2016, [place] [employer] Association. Diabetes Care. 2016.39(Suppl 1). LAB [...] PHOS, URIC, HIV12C, HREMOP, CBCDIF, STFREV #### [facility] [address] [place], [place] [address] PHOSPHORUS Collected: 08/14/2018 Status: F Source: [place] 4:30 PM [facility] REPOSITORY TYPE CODE TESTS RESULT OUT OF REFERENCE UNITS RANGE LAB PHOS 2.7-4.8 mg/dL Phosphorus 2.8 Result Comment: Results may be falsely increased due to interference by hemolysis. Suggest reorder as clinically indicated. Performed By: #### LD6, PTT, FIBCT, CMP, PHOS, URIC, HIV12C, HREMOP, CBCDIF, STFREV #### [place] [address] URIC ACID Collected: 08/14/2018 Status: F Source: [place] 4:30 [facility] REPOSITORY TYPE CODE TESTS RESULT OUT OF RANGE REFERENCE UNITS LAB URIC 2.5-6.6 mg/dL Uric 4.9 Acid Performed By: #### LD6, PTT, FIBCT, CMP, PHOS, URIC, HIV12C, HREMOP, CBCDIF, STFREV #### [place] [address] HIV 12 COMBO (AG/AB) Collected: 08/14/2018 Status: F Source: [place] 4:[address] [place] [address] REPOSITORY TYPE CODE TESTS RESULT OUT OF REFERENCE UNITS RANGE LAB HVAGAB Non Reactive HIV Non 12 Ag/Ab Reactive Result Comment: (NOTE) HIV Information: [place] Rev. Code 3701.243(E): This information has been [...] PHOS, URIC, HIV12C, HREMOP, CBCDIF, STFREV #### [place] [address] HEPATITIS REMOTE PANEL Collected: 08/14/2018 Status: F Source: [place] 4:30 [facility] REPOSITORY TYPE CODE TESTS RESULT OUT OF REFERENCE UNITS RANGE LAB AHBCOT Negative Hep B Core Negative Ab,Total LAB AHCV Negative Hepatitis C Negative Ab IA LAB HBSAGR Negative HBsAg Negative LAB AHBSAG Negative HepB Negative Surface Ab,Qual Result Comment: NEGATIVE Performed By: #### LD6, PTT, FIBCT, CMP, PHOS, URIC, HIV12C, HREMOP, CBCDIF, STFREV #### [facility] [address] [place], [place] [address] CBC AND DIFFERENTIAL Collected: 08/14/2018 Status: F Source: [place] 4:30 PM [facility] REPOSITORY TYPE CODE TESTS [...] k/uL Abs Lymph 2.29 LAB AMONO % [place]% 0.0 LAB AAMONO <0.87 k/uL Abs [place] 0.00 LAB AEOS % Eosin% 0.0 LAB [...] PHOS, URIC, HIV12C, HREMOP, CBCDIF, STFREV #### [facility] [address] [place], [place] [address] STAFF REVIEW Collected: 08/14/2018 Status: F Source: [place] LAB USE ONLY 4:30 PM [facility] REPOSITORY TYPE CODE TESTS RESULT OUT OF REFERENCE UNITS RANGE LAB SREVW Staff SEE Review COMMENT Result Comment: Blasts with Saroj rods, consistent with acute myeloid leukemia LAB SRPATH Pathologist Reviewed by Joseph James M.D. ([id number]) Performed By: #### LD6, PTT, FIBCT, CMP, PHOS, URIC, HIV12C, HREMOP, CBCDIF, STFREV #### [facility] [address] [place], [place] [address] PROTIME Collected: 08/14/2018 Status: F Source: [place] 4:30 PM [facility] REPOSITORY TYPE CODE TESTS RESULT OUT OF RANGE REFERENCE UNITS LAB PSEC 9.7-13.0 sec PT 10.8 Sec LAB INR 0.9-1.3 PT 1.0 INR Result Comment: Vitamin K Antagonist (VKA) Therapeutic Range: INR 2 to 3 (Target INR of 2.5) Note: For patients treated with VKA drugs, such as warfarin, the [place] [employer] Physicians 2012 Guideline recommends [...] Chest 2012, 141:7S-47S Diallo RA, et al. [facility] 2017, 70: 252-289 Performed By: #### PT #### [facility] [address], [place] [address] TYPE AND SCREEN Collected: 08/14/2018 Status: F Source: [place] 4:30 PM [facility] REPOSITORY TYPE CODE TESTS RESULT OUT OF REFERENCE UNITS RANGE LAB %ABR ABO/RH(D) O NEGATIVE LAB % Antibody NEG Screen Performed By: #### TSCR #### [facility] [address] [place], [place] [address] HISTORY PHYSICAL Observed: 08/14/2018 Status: COMPLETED Source: [place] 2:45 PM [facility] REPOSITORY HNO ID: [id number]: Horace DohertyAmberrvice: Hematology/OncologyAuthor Type: PhysicianType: HANDPFiled: 08/15/2018 2:04 PMNote Text:HISTORY AND PHYSICAL EXAMINATIONSERVICE DATE: 08/14/2018SERVICE TIME: 1446PRIMA CARE PHYSICIAN: Srinivas Rodriguez COMPLAINT: PancytopeniaHPI: This [...] auscultation, Good diaphragmatic excursionCARDIAC: Normal S1 and R8JPDRYGA: Abdomen soft, non-tender, BS normal, No masses or organomegalyEXTREMITIES: Extremities normal, no deformities, edema, clubbing or skindiscoloration. Good capillary refill., No ulcersNEURO: Gait normal. Reflexes normal and symmetric.PULSES: 2+ radial, 2+ carotidBP 148/78 Pulse 100 Temp (Src) 98.3 (Oral) Resp 16 Ht 5'5.945[verified by Piper HERNANDEZ[ (1.68m) Wt 214 lb 1.1 oz (97.1kg) SzV493% BMI 34.61 kg/(m2).DATA:Diagnostic tests reviewed for today's [...] DohertyeMedication and Non-Pharmacologic VTE Prophylaxis/AnticoagulantsSIGNATURE: Harini Cassidy APRN.REGIONAL SALES LEADER PATIENT NAME: Tari BlackDATE: August 14, 2018 : 2:45 PM PAGER/CONTACT #: [phone]/MEDICAL ONCOLOGY STAFF:TEACHING PHYSICIAN NOTE OF PERSONAL INVOLVEMENT [...] acute leukemia. Patient admitted for inductionchemotherapy. The [facility] conducts standardquality assurance validation for all diagnosed patients new to the [facility] and this will also be performed during this admission. Schedulefor BMBx and send blood for flow cytometry. SUpportive care andtransfusion support.?Horace Hoang MD PhD MPHAssociate StaffHematologic Oncology and Blood DisordersPager [phone] of service: 08/14/2018? FE Collected: 08/12/2018 Status: F Source: [facility] 3:42 PM [facility] REPOSITORY TYPE CODE TESTS RESULT OUT OF RANGE REFERENCE UNITS LAB FE(LOINC) 37-170 mcg/dL Iron 58 Performed By: #### FE, TSH, CMP, GFR, LIPID, ESR, DIFF, MORPH, CBC, CRP, CBCPR #### [place] [address] TSH Collected: 08/12/2018 Status: F Source: [facility] 3:42 PM [facility] REPOSITORY TYPE CODE TESTS RESULT OUT OF RANGE REFERENCE UNITS LAB TSH(LOINC) 0.360-3.740 mcIU/mL TSH 1.050 Result Comment: Please note as of 06/01/17 new pediatric reference intervals were added for this test. Performed By: #### FE, TSH, CMP, GFR, LIPID, ESR, DIFF, MORPH, CBC, CRP, CBCPR #### [address] [address] CMP Collected: 08/12/2018 Status: F Source: [facility] 3:42 PM [facility] REPOSITORY TYPE CODE TESTS RESULT OUT OF [...] ESR, DIFF, MORPH, CBC, CRP, CBCPR #### [place] [address] .GFR Collected: 08/12/2018 Status: F Source: [facility] 3:42 PM [facility] REPOSITORY TYPE CODE TESTS [...] ESR, DIFF, MORPH, CBC, CRP, CBCPR #### [place] [address] LIPID Collected: 08/12/2018 Status: F Source: [facility] 3:42 PM [facility] REPOSITORY TYPE CODE TESTS [...] ESR, DIFF, MORPH, CBC, CRP, CBCPR #### [address] [address] ESR Collected: 08/12/2018 Status: F Source: [facility] 3:42 PM [facility] REPOSITORY TYPE CODE TESTS RESULT OUT OF REFERENCE UNITS RANGE LAB ESR(LOINC) High 0-30 mm/hr Erythrocyte Sed 89 Rate Performed By: #### FE, TSH, CMP, GFR, LIPID, ESR, DIFF, MORPH, CBC, CRP, CBCPR #### [address] [address] .MANUAL DIFF Collected: 08/12/2018 Status: C Source: [facility] 3:42 PM [facility] REPOSITORY TYPE CODE TESTS RESULT OUT OF [...] ESR, DIFF, MORPH, CBC, CRP, CBCPR #### [address] [address] .MORPH Collected: 08/12/2018 Status: C Source: [facility] 3:42 PM [facility] REPOSITORY TYPE CODE TESTS RESULT OUT OF [...] ESR, DIFF, MORPH, CBC, CRP, CBCPR #### [place] [address] CBC Collected: 08/12/2018 Status: F Source: [facility] 3:42 [facility] REPOSITORY TYPE CODE TESTS RESULT OUT OF [...] ESR, DIFF, MORPH, CBC, CRP, CBCPR #### [place] [address] CRP Collected: 08/12/2018 Status: F Source: [facility] 3:42 PM [facility] REPOSITORY TYPE CODE TESTS RESULT OUT OF REFERENCE UNITS RANGE LAB CRP(LOINC) High <=0.80 mg/dL 2.18 C-Reactive Protein Performed By: #### FE, TSH, CMP, GFR, LIPID, ESR, DIFF, MORPH, CBC, CRP, CBCPR #### [address] [address] .CBC PATH REVIEW Collected: 08/12/2018 Status: F Source: [facility] 3:42 PM [facility] REPOSITORY TYPE CODE TESTS RESULT OUT OF REFERENCE UNITS RANGE LAB CBCPR(LOIN C) CBC ACUTE Path Review LEUKEMIA WITH 75% BLASTS. RECOMMEND HEMATOLOGY CONSULT WITH BONE MARROW EVALUATION. Result Comment: Electronically signed by: RACHEL BLAKE MD 08.13.2018 10:05 EDT Performed By: #### FE, TSH, CMP, GFR, LIPID, ESR, DIFF, MORPH, CBC, CRP, CBCPR #### [address] [address] EMERGENCY REPORT Observed: 10/29/2017 Status: F Source: [facility] 9:02 AM [facility] EMERGENCY ROOM REPORT NAME NUMBER SEX AGE ADMIT DISC TYPE MED.RECORD# WAYNE LE A [id number] F 72 10/28/17 10/28/17 E.R. [id number] ROOM:ER-C DATE OF :1945 PHYSICIAN NO.:[id number] PHYSICIAN NAME:E-Sign: Sowmya Perez D.O. PHYSICIAN:JACKLYN Farrell FAMILY PHYSICIAN: JACKLYN Farrell CHIEF COMPLAINT: Abdominal pain. [...] known drug allergies. SOCIAL HISTORY: She is Gnosticist. She lives at home. She does not [...] acute abnormalities. EMERGENCY ROOM REPORT WAYNE Eubanks [address] [place] [address] EMERGENCY ROOM REPORT NAME NUMBER SEX AGE ADMIT DISC TYPE MED.RECORD# WAYNE Eubanks [id number] F 72 10/28/17 10/28/17 E.R. [id number] ROOM:ER-C DATE OF :1945 PHYSICIAN NO.:[id number] PHYSICIAN NAME:E-Sign: Sowmya Perez D.O. PHYSICIAN:JACKLYN Farrell [...] Jabier Palafox MD TD: 09:50 JOB #: [id number] Electronically signed by: Not Currently Signed Transcribed by: tonny 10/29/2017 07:59 EMERGENCY ROOM REPORT WAYNE Eubanks 2 CT ABDOMEN/PELVIS W Observed: 10/28/2017 Status: F Source: [facility] 9:15 AM [place] [address] Patient: TARI BLACK Phone#: : 1945 Age: 72 Gender: F Pt. Type: ER Account: [id number] Location: 2 Ordering: JABIER PALAFOX Exam Date: 10/28/2017/8:57 Family Phys: JOSÉ MIGUEL VILLASENOR Charge Code: 897691 Physician: [facility] Order #: [id number] DLP Dose#: PROCEDURE: CT ABDOMEN/PELVIS WITH CONTRAST [...] 72 Gender: F Pt. Type: ER Account: [id number] Location: 05 Ordering: JABIER PALAFOX Exam Date: 10/28/2017/8:57 Family Phys: JOSÉ MIGUEL VILLASENOR Charge Code: 003115 Physician: [facility] Order #: [id number] DLP Dose#: URINARY BLADDER: Normal. No visible [...] Status: F Source: [facility] 8:15 AM [facility] REPOSITORY TYPE CODE TESTS RESULT OUT [...] OF AGE AND OLDER. Performed By: #### [id number] #### [place] [address] C-REACTIVE PROTEIN Collected: 10/28/2017 Status: F Source: [facility] 8:15 [facility] REPOSITORY TYPE CODE TESTS RESULT OUT OF RANGE REFERENCE UNITS LAB CRP(LOINC) High 0.00 - 1.00 mg/dl CRP 5.60 Performed By: #### [id number] #### [place] [address] LIPASE Collected: 10/28/2017 Status: F Source: [facility] 8:15 [facility] REPOSITORY TYPE CODE TESTS RESULT OUT OF REFERENCE UNITS RANGE LAB LIPASE(LOIN Low 18.0 - 51.0 U/L C) LIPASE 12.0 Performed By: #### [id number] #### [place] [address] URINALYSIS Collected: 10/28/2017 Status: F Source: [facility] 7:50 [facility] REPOSITORY TYPE CODE TESTS RESULT OUT [...] ) Urobilinog NORM NORMAL LAB Sp NORMAL: [place](LOINC) Sp [place] 1.010 1.010-1.030 LAB Nitrite(LOINC) NORMAL: Nitrite POS [...] LAB Yeast(LOINC) Yeast NONE Performed By: #### [id number] #### [facility],[address] [place] [address] CBC Collected: 10/28/2017 Status: F Source: [facility] 7:50 [facility] REPOSITORY TYPE CODE TESTS RESULT OUT [...] 7.10 x10EE3/U Neut # L 4.50 LAB [place] #(LOINC) 0.20 - 1.00 x10EE3/U [place] # L 0.40 LAB EO #(LOINC) 0.00 - 0.50 x10EE3/U EO # L 0.00 LAB Baso #(LOINC) 0.00 - 0.10 x10EE3/U Baso # L 0.00 LAB MANUAL DIFF(LOINC) MANUAL DIFF N/A LAB MORPHOLOGY(LOINC ) MORPHOLOGY N/A Result Comment: {CD] Performed By: #### [id number] #### [facility],[address] [place] [address] Observed: 10/28/2017 Status: F Source: [facility] CULTURE URINE 7:50 AM [facility] REPOSITORY CULTURE URINE _URINE CULTURE_ M I C R O B I O L O G Y R E P O R T FINAL Antimicrobial Susceptibility and Organism Identification Report Specimen Number : [id number] Requested : 10/28/17 Specimen Source : URINE Collected : 10/28/17 07:50 [place] of Isolation : Emergency Room Received : 10/28/17 07:50 Requesting Physician : IBRAHIMA VERNON Patient/Specimen Tests and Comments Specimen Comments FINAL REPORT: URINE COLONY COUNT: > THAN 100,000 CFU/CC GRAM NEGATIVE RODS Organisms Identified --------* 01 Escherichia coli 12/13/17 Comments >100,000 cfu Tech : Source : URINE ID # : [id number] FINAL Report Date : / / : [...] Ticar/K Clav'ate for gram positives based on paper reclaiming machine operator's breakpoints. Tech : Source : URINE ID # : [id number] FINAL Report Date : / / : Collected : 10/28/17 07:50 10/30/17.KERRIEO. 10/29/17.KERRIEO. 10/30/17.TOBIN.COMPLETE Performed By: #### [id number] ####[facility],[address] [address] ALLERGIES ALLERGIES DATE TYPE / CODE NAME / CODE REACTION SEVERITY SOURCE 08/29/2018 Drug No Known Unknown [place] Allergy/261953669(S Allergies/F[address] [facility]) [address](RXNORM) Hospital Repository NG/281328789(SNOMED NO KNOWN [facility] CT) ALLERGIES Health [facility] Repository Drug NO KNOWN [place] Class/140089759(SNO ALLERGIES Clinic Main MED CT) [place] Repository Miscellaneous No Known Drug Moderate [facility] Allergy/349115696(S Allergies (Severity [facility]) Modifier) Hospital (Qualifier Repository Value) ENCOUNTERS ENCOUNTERS ADMIT/DISCHARGE ACCOUNT NUMBER ADMITTING ENCOUNTER LOCATION SOURCE CLASS 09/09/2018 [id number] [facility] ding:MEDOUTP Repository 09/08/2018/09/08/20 [id number] Ambulatory [address] Main [place] Repository 09/05/2018 [id number] [facility] ding:MEDOUTP Repository 09/04/2018/09/04/20 [id number] Ambulatory [address] Main [place] Repository 09/02/2018 [id number] [facility] ding:MEDOUTP Repository 09/01/2018/09/01/20 [id number] Ambulatory [address] Main [place] Repository 08/29/2018/09/01/20 [id number] Ambulatory [address] Main [place] Repository 08/29/2018 [id number] [facility] ding:MEDOUTP Repository 08/28/2018/08/29/20 [id number] Ambulatory [address] Main [place] Repository 08/28/2018/08/28/20 [id number] Ambulatory [address] Main [place] Repository 08/28/2018/08/28/20 [id number] Ambulatory [address] Other [place] Repository 08/28/2018/08/28/20 [id number] Ambulatory [place] [facility] MEDICAL Repository CENTERBuildi ng:AKUF 08/27/2018/08/28/20 [id number] Ambulatory [place] Main [place] Repository 08/26/2018/08/27/20 [id number] Ambulatory [place] 18 [facility] Main [place] Repository 08/25/2018 [id number] ESTHERAUS, Ambulatory Mike VALDEZ MD [facility] Repository 08/25/2018/08/27/20 [id number] Ambulatory [address] Main [place] Repository 08/25/2018/08/25/20 [id number] Ambulatory [address] Main [place] Repository 08/25/2018/08/25/20 [id number] Ambulatory [address] Main [place] Repository 08/20/2018/08/22/20 [id number] Ambulatory [address] Main [place] Repository 08/20/2018/08/22/20 [id number] Ambulatory [address] Main [place] Repository 08/20/2018/08/28/20 [id number] Ambulatory RBuilding: Janet 18 [facility] Repository 08/14/2018/08/19/20 [id number] NATALYA, Inpatient [place] [address] SUDIPTO Encounter [facility] Main [place] Repository 10/28/2017/10/28/20 [id number] NEMUNAITIS, Emergency Buildin Mike Schumacher [address] [place] [address] Room: ERBed: [facility] Repository PAYERS PAYERS ENCOUNTER GUARANTOR PAYER SUBSCRIBER SOURCE 09/09/2018 TARI [id number] Primary TARI A YODERDOB: [place] TR Insurance:[facility] [id number] [address]Jwf: GROUPPolicy Number: Repository [id number] (HP) Date: [address] [address]OQ: 09/09/2018 Secondary NOT GIVENUNK [place] Insurance:SELF PAY [facility] Number: Effective Repository Date:2018-09-08 09/05/2018 TARI Raimundo [id number] Primary TARI A YODERDOB: [place] TR Insurance:[facility] [id number] [address]Gaq: GROUPPolicy Number: Repository [id number] (HP) Date: [address] [place] [address]EZ: 09/05/2018 Secondary NOT GIVENUNK [place] Insurance:SELF PAY [facility] Number: Effective Repository Date:2018-09-04 09/02/2018 TARI [id number] Primary TARI A YODERDOB: [place] TR Insurance:[facility] [id number] [address]Dcv: GROUPPolicy Number: Repository [id number] (HP) Date: [address] [address]NY: 09/02/2018 Secondary NOT GIVENUNK [place] Insurance:SELF PAY [facility] Number: Effective Repository Date:2018-09-01 08/29/2018 TARI A [id number] Primary TARI A YODERDOB: [place] TR Insurance:[facility] [id number] [place] [address]Nwf: GROUPPolicy Number: Repository .Effective (HP) Date: [address] [address]RW: 08/29/2018 Secondary NOT GIVENUNK [place] Insurance:SELF PAY [facility] Number: Effective Repository Date:2018-08-28 08/28/2018 TARI YODERDOB: Primary TARI YODERDOB: [facility] [id number] Insurance:[facility] [id number] Repository [address] [place], [place] [address]Polic Number: [id number]: [id number] Date: (HP) 08/25/2018 TARI A YODERDOB: Primary TARI A YODERDOB: Mike Schumacher [id number] Insurance:[facility] [id number] [place] [address] PACKAGEPolicy Number: 9 [facility] [address] [place] [address], Effective Date: [address] [place] [address] [phone]: [place] [phone] () 08/20/2018 TARI FALCONB: Primary TARI YODERDOB: [facility] Insurance:SELF [id number] [facility] PAYPolicy Number: 9 TR Repository [address] [place] [address], Effective [address] [place] [address]Lln: Date:2018-08-19 [place] [address]Baj: [id number] Name: (HP)Tel: (000) (HP) () [phone] () 10/28/2017 TARI SEGURA: Primary KUNAL RODGERS YODERDOB: Mike Aliceemma [id number] Insurance:[facility] [id number] [facility] ONEPolicy [address], Number: [address] [place] [address], Repository [place] [phone]: Date: [place] [phone] ()
[2018-09-09 10:39] VITALS: BP 107/57; PULSE 77; RESP 16; TEMP 36.5
[2018-09-09 10:59] VITALS: BP 109/62; PULSE 87; RESP 16; TEMP 37.1; O2SAT 99
[2018-09-09 11:20] VITALS: BP 110/57; PULSE 77; RESP 18; TEMP 36.6; O2SAT 94
== END ==
PROVIDERS: Family Provider Family Medicine; PCP Family Medicine; Referring Provider Internal Medicine Hematology & Oncology; Visit Provider Internal Medicine Hematology & Oncology
DX: C92.00 Acute myeloblastic leukemia, not having achieved remission (principal)
CPT/HCPCS: 36430; 86900; 86965; J7040; P9035; A4216

== ENCOUNTER → 2018-09-12 08:27 | Outpatient (CLI) | payer OTHER, SELFPAY ==
[2018-09-12] MEDS: DiphenhydrAMINE 50 MG/ML Syringe IV (09:01)
[2018-09-12] MEDS: Acetaminophen 325 MG Tablet 650 MG PO (09:01)
[2018-09-12 09:07] VITALS: BP 123/59; PULSE 90; RESP 26; TEMP 36.4; O2SAT 99; BMI 52.7
[2018-09-12 09:29] VITALS: BP 117/72; PULSE 87; RESP 14; TEMP 36.4; O2SAT 100
[2018-09-12 10:10] VITALS: BP 125/62; PULSE 83; RESP 16; TEMP 36.4; O2SAT 100
[2018-09-12 10:56] VITALS: BP 114/66; PULSE 82; RESP 16; TEMP 36.5
[2018-09-12 11:03] VITALS: BP 114/66; PULSE 82; RESP 16; TEMP 36.5
== END ==
PROVIDERS: Family Provider Family Medicine; PCP Family Medicine; Referring Provider Internal Medicine Hematology & Oncology; Visit Provider Internal Medicine Hematology & Oncology
DX: C92.00 Acute myeloblastic leukemia, not having achieved remission (principal)
CPT/HCPCS: 36430; 86900; 86965; J7040; P9035; A4216

== ENCOUNTER → 2018-09-16 08:27 | Outpatient (CLI) | payer OTHER, SELFPAY ==
[2018-09-16] MEDS: DiphenhydrAMINE 50 MG/ML Syringe IV (08:53)
[2018-09-16] MEDS: Acetaminophen 325 MG Tablet 650 MG PO (08:54)
[2018-09-16 09:02] VITALS: BP 154/75; PULSE 95; RESP 16; TEMP 36.6; O2SAT 98; BMI 37.8
[2018-09-16 09:41] VITALS: BP 124/68; PULSE 89; RESP 16; TEMP 36.6
[2018-09-16 10:09] VITALS: BP 115/55; PULSE 88; RESP 16; TEMP 36.6
[2018-09-16 10:37] VITALS: BP 107/67; PULSE 90; RESP 16; TEMP 36.5; O2SAT 98
[2018-09-16 11:04] VITALS: BP 114/68; PULSE 90; RESP 16; TEMP 36.7
== END ==
PROVIDERS: Family Provider Family Medicine; PCP Family Medicine; Referring Provider Internal Medicine Hematology & Oncology; Visit Provider Internal Medicine Hematology & Oncology
DX: C95.00 Acute leukemia of unspecified cell type not having achieved remission (principal)
CPT/HCPCS: 36430; 86644; 86900; 86965; J7040; P9035; A4216

== ENCOUNTER → 2018-09-19 11:49 | Outpatient (CLI) | payer OTHER, SELFPAY ==
[2018-09-19 12:24] VITALS: BP 116/67; PULSE 95; RESP 16; TEMP 36.6; O2SAT 97; BMI 35.3
[2018-09-19] MEDS: Acetaminophen 325 MG Tablet 650 MG PO (12:52)
[2018-09-19] MEDS: DiphenhydrAMINE 50 MG/ML Syringe IV (12:53)
[2018-09-19 13:08] VITALS: BP 110/67; PULSE 93; RESP 15; TEMP 36.5; O2SAT 98
[2018-09-19 14:04] VITALS: BP 111/63; PULSE 86; RESP 16; TEMP 36.1
[2018-09-19 14:39] VITALS: BP 121/68; PULSE 89; RESP 16; TEMP 36.4
[2018-09-19 14:40] VITALS: BP 106/66; PULSE 87; RESP 16; TEMP 36.2
== END ==
PROVIDERS: Family Provider Family Medicine; PCP Family Medicine; Referring Provider Internal Medicine Hematology & Oncology; Visit Provider Internal Medicine Hematology & Oncology
DX: C95.00 Acute leukemia of unspecified cell type not having achieved remission (principal)
CPT/HCPCS: 36430; 86644; 86900; 86965; J7040; P9035; A4216

== ENCOUNTER → 2018-09-23 08:27 | Outpatient (CLI) | payer OTHER, SELFPAY ==
[2018-09-23] VITALS (8 sets, daily range): BP systolic 104–135; BP diastolic 56–74; PULSE 89–95; RESP 15–18; TEMP 36.2–36.8; O2SAT 96–100; BMI 35.3
[2018-09-23] MEDS: Acetaminophen 325 MG Tablet 650 MG PO (09:02)
[2018-09-23] MEDS: DiphenhydrAMINE 50 MG/ML Syringe IV (09:02)
== END ==
PROVIDERS: Family Provider Family Medicine; PCP Family Medicine; Referring Provider Internal Medicine Hematology & Oncology; Visit Provider Internal Medicine Hematology & Oncology
DX: C92.00 Acute myeloblastic leukemia, not having achieved remission (principal)
CPT/HCPCS: 36430; 86644; 86850; 86900; 86920; 86922; 86965; J7040; P9016; P9035; A4216

== ENCOUNTER → 2018-09-26 10:59 | Outpatient (CLI) | payer OTHER, SELFPAY ==
[2018-09-26 11:10] VITALS: BP 145/71; PULSE 85; RESP 16; TEMP 36.5; O2SAT 99; BMI 35.2
[2018-09-26] MEDS: Acetaminophen 325 MG Tablet 650 MG PO (11:19)
[2018-09-26] MEDS: DiphenhydrAMINE 50 MG/ML Syringe IV (11:19)
[2018-09-26 12:34] VITALS: BP 111/58; PULSE 87; RESP 18; TEMP 36.4; O2SAT 100
[2018-09-26 12:49] VITALS: BP 115/70; PULSE 87; RESP 18; TEMP 36.3; O2SAT 99
[2018-09-26 13:06] VITALS: BP 113/54; PULSE 91; TEMP 36.6
[2018-09-26 13:23] VITALS: BP 111/52; PULSE 87; RESP 18; TEMP 36.4; O2SAT 100
== END ==
PROVIDERS: Family Provider Family Medicine; PCP Family Medicine; Referring Provider Internal Medicine Hematology & Oncology; Visit Provider Internal Medicine Hematology & Oncology
DX: D61.818 Other pancytopenia (principal)
CPT/HCPCS: 36430; 86644; 86900; 86965; J7040; P9035; A4216

== ENCOUNTER → 2018-09-30 10:34 | Outpatient (CLI) | payer OTHER, SELFPAY ==
[2018-09-30 10:35] VITALS: BP 141/70; PULSE 103; RESP 16; TEMP 37.2; O2SAT 100; BMI 44.6
[2018-09-30] MEDS: DiphenhydrAMINE 50 MG/ML Syringe IV (10:58)
[2018-09-30] MEDS: Acetaminophen 325 MG Tablet 650 MG PO (10:58)
[2018-09-30 11:13] VITALS: BP 141/70; PULSE 103; RESP 16; TEMP 37.1; O2SAT 100
[2018-09-30 11:28] VITALS: BP 127/66; PULSE 96; RESP 16; TEMP 37.2
[2018-09-30 11:47] VITALS: BP 117/65; PULSE 98; TEMP 37.2
[2018-09-30 12:20] VITALS: BP 105/53; PULSE 100; TEMP 36.9
[2018-09-30 12:59] VITALS: BP 109/54; PULSE 98; RESP 16; TEMP 36.7
== END ==
PROVIDERS: Family Provider Family Medicine; PCP Family Medicine; Referring Provider Internal Medicine Hematology & Oncology; Visit Provider Internal Medicine Hematology & Oncology
DX: C92.00 Acute myeloblastic leukemia, not having achieved remission (principal)
CPT/HCPCS: 36430; 86644; 86900; 86965; J7040; P9035; A4216

== ENCOUNTER → 2018-10-03 08:52 | Outpatient (CLI) | payer OTHER, SELFPAY ==
[2018-10-03] VITALS (11 sets, daily range): BP systolic 107–133; BP diastolic 54–73; PULSE 92–124; RESP 16–20; TEMP 36.6–38.2; O2SAT 91–99; BMI 35.3
[2018-10-03] MEDS: Acetaminophen 325 MG Tablet 650 MG PO (09:22)
[2018-10-03] MEDS: DiphenhydrAMINE 50 MG/ML Syringe IV (09:22)
[2018-10-03] MEDS: Hydrocortisone Sod Succinate 100 MG/2 ML Vial IV (11:34)
[2018-10-03] MEDS: DiphenhydrAMINE 50 MG/ML Syringe 25 MG IV (11:35)
--- NOTE | 2018-10-03 11:53 | NURSING ---
2 unit of platelets, finished at 1140. Rn responded to pt call to light, pt stated she felt feverish and couldn't stop shaking. Pt vitals were bp 133/56, p 123, T 99.9 (temporal), resp 18, O2 [address] Knapp was notified regarding pt condition and gave VORB 25mg Benadryl IV x1 and 100mg Solu-cortef IV x1 wait 15min and proceed with blood products as ordered.
== END ==
PROVIDERS: Family Provider Family Medicine; PCP Family Medicine; Referring Provider Internal Medicine Hematology & Oncology; Visit Provider Internal Medicine Hematology & Oncology
DX: C95.00 Acute leukemia of unspecified cell type not having achieved remission (principal)
CPT/HCPCS: 36430; 86850; 86900; 86920; 86922; 86965; J7040; P9016; P9035; A4216; J1940

== ENCOUNTER → 2018-10-06 10:11 | Outpatient (CLI) | payer OTHER, SELFPAY ==
[2018-10-03 09:02] VITALS: BMI 35.3
[2018-10-06 10:37] LABS: Basophil# 0.01 X10^3/uL; Eosinophil# 0.02 X10^3/uL; Hemoglobin 9.3 g/dl (12.0-15.0); Lymphocyte # 8.64 X10^3/ul (4.0); Mean Corp Hgb Conc 32.1 g/gl (32-36); Mean Corpuscular Hgb 30.3 pg (27.0-32.0); Mean Corpuscular Volume 94.5 fL (81-99); Monocyte# 0.58 X10^3/uL; Neutrophil # 0.44 X10^3/uL (2.7-7.7); Platelet Count 6 K/mm3 (150-450); RBC Distribution Width CV 19.1 % (11.6-14.6); RBC Distribution Width SD 61.3 fl (35.1-43.9); Red Blood Count 3.07 M/mm3 (4.2-5.4)
[2018-10-06 10:38] LABS: Differential Indicated SCAN CRITERIA MET; POSITIVE COUNT YES; POSITIVE DIFFERENTIAL YES; POSITIVE MORPHOLOGY YES
[2018-10-06 11:13] LABS: Scan Smear per Review Criteria MANUAL DIFF
[2018-10-06 11:20] LABS: Blast 45 % (0-0); Eosinophil 1 % (0-5); Lymphocyte 43 % (19-41); Monocyte 11 % (0-10); Total Cells Counted 100 (MANUAL DIFF)
[2018-10-06 11:21] LABS: Platelet Estimate MKD DEC (ADEQ)
[2018-10-06 11:22] LABS: Hypochromasia 1+
[2018-10-06 11:24] LABS: Absolute Nucleated RBC Count 0.09 10^3/uL (0-5); Corrected WBC 9.7 K/mm3 (4.4-11.0); NRBC Flagged by Analyzer 0.9 % (0-5)
[2018-10-06 11:26] LABS: Absolute Lymphocyte Count 4.17 X10^3/ul (0.83-4.51)
[2018-10-07 10:17] LABS: Pathologist Review Reviewed
== END ==
PROVIDERS: Referring Provider Internal Medicine Hematology & Oncology; Visit Provider Internal Medicine Hematology & Oncology
DX: C95.00 Acute leukemia of unspecified cell type not having achieved remission (principal)
CPT/HCPCS: 85025

== ENCOUNTER → 2018-10-07 12:50 | Outpatient (CLI) | payer OTHER, SELFPAY ==
[2018-10-03 09:02] VITALS: BMI 35.3
[2018-10-07 13:00] VITALS: BP 133/72; PULSE 99; RESP 16; TEMP 36.2; O2SAT 99; BMI 35.6
[2018-10-07] MEDS: DiphenhydrAMINE 50 MG/ML Syringe IV (13:12)
[2018-10-07] MEDS: Acetaminophen 325 MG Tablet 650 MG PO (13:12)
[2018-10-07 13:51] VITALS: BP 129/70; PULSE 95; RESP 16; TEMP 36.5; O2SAT 98
[2018-10-07 14:15] VITALS: BP 125/74; PULSE 93; RESP 16; TEMP 36.3; O2SAT 98
[2018-10-07 14:43] VITALS: BP 132/69; PULSE 94; RESP 16; TEMP 36.6
[2018-10-07 15:11] VITALS: BP 120/64; PULSE 90; RESP 16; TEMP 37.1
== END ==
PROVIDERS: Family Provider Family Medicine; PCP Family Medicine; Referring Provider Internal Medicine Hematology & Oncology; Visit Provider Internal Medicine Hematology & Oncology
DX: C92.00 Acute myeloblastic leukemia, not having achieved remission (principal)
CPT/HCPCS: 36430; 86900; 86965; J7040; P9035; A4216

== ENCOUNTER 2018-10-11 18:09 | Inpatient (IN) | payer OTHER, SELFPAY ==
[2018-10-11 18:10] VITALS: BP 141/70; PULSE 108; RESP 16; TEMP 37.7; O2SAT 93; BMI 35.6
--- NOTE | 2018-10-11 18:37 | EKG12_ITS ---
Test Reason : FEVER Blood Pressure : / mmHG Vent. Rate : 105 BPM Atrial Rate : 105 BPM P-R Int : 156 ms QRS Dur : 084 ms QT Int : 322 ms P-R-T Axes : 004 000 -04 degrees QTc Int : 425 ms Sinus tachycardia Otherwise normal ECG Confirmed by CANDACE BURK, SETH ([id number]), order editor LISSETTE NEVAREZ ([id number]) on 10/13/2018 2:18:57 PM Referred By: SARAI Confirmed By:SETH MARIA MD
--- NOTE | 2018-10-11 18:38 | CT_ITS ---
STUDY: CT ABDOMEN AND PELVIS WITHOUT CONTRAST REASON FOR EXAM: Female, 73 years old. Fever. History of leukemia. RADIATION DOSAGE (If Supplied By Facility): CTDIvol = ( 19.08 ) mGy, DLP = ( 934.49 ) mGycm TECHNIQUE: Transaxial images were obtained from the dome of the diaphragm to the symphysis pubis without oral contrast, and without intravenous contrast. Sagittal and coronal images were reconstructed. Individualized dose optimization techniques were used for this CT. COMPARISON: PA and lateral chest October 11, 2018 FINDINGS: Partially rounded groundglass and dense consolidation of the left lower lobe negative for pleural effusion. Small multifocal roundish infiltrate of the posterior right lower lobe. The visualized portions of the heart are within normal limits. Benign globular calcification and the superficial layer of the right liver dome. Elongated right liver lobe, probably Hai's lobe. Normal gallbladder and extrahepatic biliary system. Splenomegaly with a coronal length of 14 cm. Normal pancreas. Normal bilateral adrenal glands. Normal right kidney. Nonobstructing cortical calcification, 1 mm, in the lower pole of the left kidney subcentimeter exophytic cyst in the lower pole of the left kidney. Otherwise unremarkable left kidney without hydronephrosis or stones. Nondistended stomach. Nondistended small bowel. Nondistended colon. Minimal diverticulosis without evidence of acute diverticulitis. The appendix is visualized and appears normal. There is diffuse atherosclerotic calcification of the abdominal aorta, without a demonstrated aneurysm. Normal inferior vena cava. Normal retroperitoneum. Normal urinary bladder. Negative for pelvic mass or free fluid of the pelvis. Subcutaneous stranding of the abdominal wall on both sides consistent with injection sites. Patient has extreme thinning of the rectus muscles bilaterally with a general dysraphism and protrusion of the abdominal cavity without herniation. There are diffuse degenerative changes of the visualized lumbar spine with demineralized osseous structures. CT/Abdomen/Pelvis without Cont IMPRESSION: Large consolidation of the left lower lobe. Smaller infiltrate of the medial right lower lobe. Negative for pleural effusion. No acute abdominal findings. Elongated right liver lobe typical of a Hai's lobe. Mild splenomegaly. Normal gallbladder and pancreas. Normal size of the kidneys bilaterally without hydronephrosis or ureteral stones. One nonobstructing cortical calcification of the left kidney. Renal cysts. Negative for evidence of bowel obstruction, perforation or inflammatory bowel changes. Diverticulosis without evidence of acute diverticulitis. Negative for pelvic mass or free fluid of the pelvis. Electronically Signed: Beena Skaggs MD at 20:48 EST , Service support ,
--- NOTE | 2018-10-11 18:38 | ED.VISSUMM ---
- ER Visit Summary Date of Service: 10/11/18 Chief Complaint: Fever in a neutropenic patient History of Present Illness: The patient is a 73 F who presents for 1 day of fever. Patient is currently receiving chemotherapy for acute leukemia and is neutropenic. Patient developed a fever this morning and has felt unwell since. She feels generally fatigued and weak, with a headache and abdominal pain. She vomited yesterday but no vomiting or nausea today. She has been having difficulty urinating today, which is a chronic issue for her sometimes requiring self-catheterization. She last voided spontaneously 2 hours ago. Patient denies cough, congestion, chest pain, sore throat, shortness of breath, rash, dysuria. She denies any other medical problems. Physical Examination: Vital signs: Temperature of 100, hemodynamically stable, no hypoxia on room air General: well nourished, well developed, in no distress Skin: warm, dry, no rash, no pallor HEENT: normocephalic and atraumatic; PERRL, EOMI, moist mucous membranes, no oropharyngeal lesions appreciated, neck is supple and nontender, no lymphadenopathy Cardiovascular: Tachycardic rate and rhythm without murmurs, no peripheral edema, 2+ pulses all distal extremities Respiratory: No increased work of breathing, lungs are clear to auscultation bilaterally, no rales, rhonchi or wheezing Abdominal: Abdomen is soft, mildly distended, tender in the epigastrium with normoactive bowel sounds, no guarding or rebound, diffuse contusions in various states of healing from subcutaneous injections MSK: Moves all extremities, no deformities, normal strength Neuro: Awake and alert, oriented ?4. No facial droop, sensation and motor function intact and symmetric Test Results: Abnormal Lab Results 10/11/18 10/11/18 10/11/18 18:50 18:50 18:50 WBC Not Reportable Corrected WBC 10.6 RBC 2.51 L Hgb 7.6 L Hct 23.3 L MCV 92.8 MCH 30.3 MCHC 32.6 RDW 19.3 H RDW Differential 61.3 H Plt Count 7 L* MPV TNP Neut % (Auto) Not Reportable Absolute Neuts (auto) 0.1 L Absolute Lymphs (auto) 3.18 Total Counted 100 Neutrophils % (Manual) 1 L Lymphocytes % (Manual) 30 Blast Cells % 69 H* Nucleated RBC % 1.1 Diff Path Review May foll Platelet Estimate MKD DEC Polychromasia RARE Basophilic Stippling RARE Anisocytosis 2+ Absolute Retic 0.11 PT 15.4 H INR 1.2 APTT 48.0 H Sodium 134 L Potassium 3.9 Chloride 102 Carbon Dioxide 28.0 Anion Gap 4 L BUN 9 Creatinine 0.73 Estim Creat Clear Calc 41.97 Est GFR (MDRD) Af Amer 100 Est GFR (MDRD) Non-Af 83 BUN/Creatinine Ratio 12.3 Glucose 119 H Lactic Acid Calcium 9.5 Total Bilirubin 1.60 H AST 32 ALT 22 Alkaline Phosphatase 126 H Total Protein 6.8 Albumin 2.8 L Globulin 4.0 Albumin/Globulin Ratio 0.7 L Urine Color Urine Clarity Urine pH Ur Specific [place] Urine Protein Urine Glucose (UA) Urine Ketones Urine Occult Blood Urine Nitrite Urine Bilirubin Urine Urobilinogen Ur Leukocyte Esterase Urine RBC Urine WBC Ur Squamous Epith Cells Amorphous Sediment Urine Bacteria Urine Mucus 10/11/18 10/11/18 18:50 19:30 WBC Corrected WBC RBC Hgb Hct MCV MCH MCHC RDW RDW Differential Plt Count MPV Neut % (Auto) Absolute Neuts (auto) Absolute Lymphs (auto) Total Counted Neutrophils % (Manual) Lymphocytes % (Manual) Blast Cells % Nucleated RBC % Diff Path Review Platelet Estimate Polychromasia Basophilic Stippling Anisocytosis Absolute Retic PT INR APTT Sodium Potassium Chloride Carbon Dioxide Anion Gap BUN Creatinine Estim Creat Clear Calc Est GFR (MDRD) Af Amer Est GFR (MDRD) Non-Af BUN/Creatinine Ratio Glucose Lactic Acid 0.8 Calcium Total Bilirubin AST ALT Alkaline Phosphatase Total Protein Albumin Globulin Albumin/Globulin Ratio Urine Color Yellow Urine Clarity Sl. Cloudy Urine pH 8.0 Ur Specific [place] 1.010 Urine Protein 30 H Urine Glucose (UA) Normal Urine Ketones Negative Urine Occult Blood Negative Urine Nitrite Negative Urine Bilirubin Negative Urine Urobilinogen 1 H Ur Leukocyte Esterase Negative Urine RBC 0 SEEN Urine WBC 0 SEEN Ur Squamous Epith Cells 0-5 SEEN Amorphous Sediment 1+ PHOS Urine Bacteria 0 SEEN Urine Mucus 0 SEEN Clinical Impression(s) from Imaging Studies Abdomen/Pelvis CT 10/11/18 18:38 IMPRESSION: Large consolidation of the left lower lobe. Smaller infiltrate of the medial right lower lobe. Negative for pleural effusion. No acute abdominal findings. Elongated right liver lobe typical of a Hai's lobe. Mild splenomegaly. Normal gallbladder and pancreas. Normal size of the kidneys bilaterally without hydronephrosis or ureteral stones. One nonobstructing cortical calcification of the left kidney. Renal cysts. Negative for evidence of bowel obstruction, perforation or inflammatory bowel changes. Diverticulosis without evidence of acute diverticulitis. Negative for pelvic mass or free fluid of the pelvis. Electronically Signed: Beena Skaggs MD at 20:48 EST , Service support , Chest X-Ray 10/11/18 19:45 IMPRESSION: Focal density in the posterior left base primarily on the lateral view. This is consistent with atelectasis infiltrate or mass. CT of the chest with contrast is recommended. Electronically Signed: Ramos Mccoy MD at 21:03 EST , Service support , Medications Given Discontinued Medications Acetaminophen (Tylenol) 650 mg PO X1 ONE Stop: 10/11/18 21:48 Last Admin: 10/11/18 22:03 Dose: 650 mg Sodium Chloride () 500 mls @ 999 mls/hr IV .Q31M JOHANNY Stop: 10/11/18 19:15 Last Admin: 10/11/18 19:26 Dose: 999 mls/hr Meropenem 1 gm/ Sodium (Chloride) 120 mls @ 200 mls/hr IV X1 ONE Stop: 10/11/18 19:11 Last Admin: 10/11/18 19:26 Dose: 200 mls/hr Vancomycin HCl 1,500 mg/ (Sodium Chloride) 530 mls @ 250 mls/hr IV X1 ONE Stop: 10/11/18 21:07 Last Admin: 10/11/18 20:29 Dose: 250 mls/hr Emergency Department Course and Treatment: Neutropenic fever workup was performed. Patient was started empirically on vancomycin and meropenem. Labs showed leukopenia with blast predominance, platelets of 7 and hemoglobin of 7.6. Lactate was within normal limits. EKG showed a sinus tachycardia without ischemic changes. Chest x-ray was concerning for a left basilar infiltrate. CT the abdomen and pelvis was performed because of patient's complaint of abdominal pain. It also showed the left lower lobe infiltrate. Patient was given Tylenol for a headache. Her headache is mild and does not seem meningitic. Patient was discussed with Dr. Knapp regarding the low platelet count, and he states that patient receives platelet transfusions regularly because of chronic thrombocytopenia. She does not need an emergent platelet transfusion in the emergency department, but but can receive 1 on the floor either tonight or after he evaluates her tomorrow. Patient was discussed with Dr. Leggett and admitted for neutropenic fever with concern for a left lower lobe pneumonia. Treatment Plan: [] Disposition: [] Impression: Neutropenic fever, left lower lobe pneumonia, thrombocytopenia, neutropenia, anemia This note was generated with [email or web address] dictation software. It may contain incorrect words, spelling, and punctuation that were not noted in review of the chart prior to signing ED Disposition - Plan for ED Patient: Disposition: Acute Care [facility] Chief Complaint: Fever
[2018-10-11 19:15] LABS: International Normalized Ratio 1.2; Prothrombin Time (Protime)PT. 15.4 SECONDS (11.7-14.9)
[2018-10-11 19:26] LABS: Corrected WBC 10.6 K/mm3 (4.4-11.0); Hematocrit 23.3 % (37-47); Hemoglobin 7.6 g/dl (12.0-15.0); Mean Corp Hgb Conc 32.6 g/gl (32-36); Mean Corpuscular Hgb 30.3 pg (27.0-32.0); Mean Corpuscular Volume 92.8 fL (81-99); POSITIVE COUNT YES; POSITIVE DIFFERENTIAL YES; POSITIVE MORPHOLOGY YES; RBC Distribution Width CV 19.3 % (11.6-14.6); RBC Distribution Width SD 61.3 fl (35.1-43.9); Red Blood Count 2.51 M/mm3 (4.2-5.4)
[2018-10-11 19:29] LABS: Platelet Count 7 K/mm3 (150-450)
--- NOTE | 2018-10-11 19:33 | ED.RN ---
DR. MOON AWARE PT PLATELET COUNT IS 7.
[2018-10-11 19:40] LABS: ALB/GLOB Ratio 0.7 RATIO (0.9-2.4); AST(SGOT) 32 U/L (15-37); Alanine Aminotransfer ALT/SGPT 22 U/L (13-56); Albumin, Serum 2.8 g/dL (3.2-5.0); Alkaline Phosphatase 126 U/L (45-117); Anion Gap 4 (5-15); BUN 9 mg/dL (7-18); BUN/Creat Ratio 12.3 RATIO (10-20); Calcium,Total 9.5 mg/dL (8.5-10.1); Chloride 102 mmol/L (98-107); Creatinine, Serum 0.73 mg/dL (0.55-1.02); EST Glomerular Filtration Rate 83 mL/min (>60); Est Glom Filt Rate - Afr Amer 100 mL/min (>60); Estimated Creatinine Clearance 41.97 ml/min; Glucose 119 mg/dL (74-106); Potassium 3.9 mmol/L (3.5-5.1); Protein, Total 6.8 g/dL (6.4-8.2); Sodium Level 134 mmol/L (136-145)
[2018-10-11 19:44] LABS: Bacteria 0 SEEN /hpf (None Seen); Mucous, Urine 0 SEEN /hpf (<or=2+); Red Blood Cells-Urine 0 SEEN /hpf (0-5); White Blood Cells 0 SEEN /hpf (0-5)
--- NOTE | 2018-10-11 19:45 | RAD_ITS ---
STUDY: X-RAY CHEST REASON FOR EXAM: Female, 73 years old. Fever TECHNIQUE: Frontal and lateral views of the chest. COMPARISON: None. FINDINGS: Hyperexpansion of the lungs. Lateral view shows prominent opacification in the posterior left lung base also seen on CT of the abdomen and pelvis and consistent with focal infiltrate or mass. CT of the chest with contrast is recommended. No gross effusions. Normal size heart. Normal mediastinum and william. Normal visualized pulmonary arteries. Normal visualized aortic arch and descending thoracic aorta. There are diffuse degenerative changes of the visualized thoracic spine. There is exaggerated kyphosis. Normal visualized ribs, clavicles, and shoulders. There is no demonstrated abnormality of the visualized soft tissue structures of the upper abdomen. RAD/Chest PA and Lateral IMPRESSION: Focal density in the posterior left base primarily on the lateral view. This is consistent with atelectasis infiltrate or mass. CT of the chest with contrast is recommended. Electronically Signed: Ramos Mccoy MD at 21:03 EST , Service support ,
[2018-10-11 19:46] LABS: Color, Urine Yellow (Yellow); Glucose, Dipstick Normal (Normal); Ketone-Dipstick Negative (Negative); Leukocyte Esterase-Dipstick Negative /ul (Negative); Nitrite-Dipstick Negative (Negative); Occult Blood-Urine Negative /ul (Negative); Protein-Dipstick 30 mg/dl (Negative); Urine Bilirubin Dipstick Negative (Negative); Urine Clarity Sl. Cloudy (Clear); Urine Urobilinogen 1 mg/dl (Normal)
[2018-10-11 19:47] LABS: Differential Indicated MANUAL DIFF; Lactic Acid 0.8 mmol/L (0.4-2.0)
[2018-10-11 19:52] LABS: Squamous Epithelial Cells - UA 0-5 SEEN /hpf (5-10)
[2018-10-11 19:53] LABS: Amorphous Sediment 1+ PHOS
[2018-10-11 20:05] LABS: Lymphocyte 30 % (19-41); Neutrophil-Segmented 1 % (47-70)
[2018-10-11 20:06] LABS: Absolute Nucleated RBC Count 0.11 10^3/uL (0-5); Anisocytosis 2+; Basophilic Stippling RARE; NRBC Flagged by Analyzer 1.1 % (0-5); Platelet Estimate MKD DEC (ADEQ); Polychromasia RARE
[2018-10-11 20:08] LABS: Absolute Lymphocyte Count 3.18 X10^3/ul (0.83-4.51); Absolute Neutrophil Count 0.1 X10^3/uL (2.0-7.7); Lymphocyte # 3.18 X10^3/ul (4.0); Neutrophil # 0.11 X10^3/uL (2.7-7.7)
[2018-10-11 20:11] LABS: Blast 69 % (0-0); Total Cells Counted 100 (MANUAL DIFF)
--- NOTE | 2018-10-11 20:11 | ED.RN ---
lab called with critical lab results. Blast cell count 69%. Dr. Diane made aware. no new orders at this time
[2018-10-11 20:36] VITALS: RESP 18; TEMP 37.5
--- NOTE | 2018-10-11 21:43 | PCM.HP.STD ---
Problem List (1) Neutropenic fever Status: Acute (2) Sepsis Status: Acute Qualifiers: Sepsis type: sepsis due to unspecified organism Qualified Code(s): A41.9 - Sepsis, unspecified organism (3) Pancytopenia Status: Acute (4) AML (acute myeloblastic leukemia) Status: Chronic Qualifiers: Leukemia Active/Remission status: without remission Qualified Code(s): C92.00 - Acute myeloblastic leukemia, not having achieved remission (5) HTN (hypertension) Status: Chronic Qualifiers: Hypertension type: essential hypertension Qualified Code(s): I10 - Essential (primary) hypertension (6) Obesity Status: Chronic Qualifiers: Obesity type: due to excess calories Obesity classification: adult class 2 (BMI 35 - 39.9) Serious obesity comorbidity presence: with serious comorbidity Body mass index: BMI 35.0-35.9 Qualified Code(s): E66.01 - Morbid (severe) obesity due to excess calories; Z68.35 - Body mass index (BMI) 35.0-35.9, adult History of Present Illness Date of Admission: 10/11/18 Chief Complaint: Malaise, N/V, upper abd discomfort, fever The patient is a 73 y/o F w/ PMHx: HTN off regimen since initiation of chemotherapy secondary to hypotension, Obesity, Urinary Retention with intermittent self-catheterization need, recent Dx AML on chemotherapy (Vidaza) currently completed her 2nd round the week prior to current presentation with planned continued cycles with expected response in ~ 4-6 months to assist with blast reduction, Chronic Pancytopenia requiring plts transfusions often 2-3x/week who presents to the [facility] ED on 10/11/18 with history of generalize malaise, fatigue, poor oral intake, generalized abdominal discomfort primarily BL UQ, L>R in addition to headache without light or sound sensitivity since last chemotherapy (Saturday past) in addition to onset fever on day of ED presentation. She also noted nausea and emesis over the last 24 hours. She denied any recent cough or dyspnea even with exertion. Patient recommended to present to the [facility] ED for evaluation per Dr. Knapp. In the ED work-up included included T 100, heart rate 108, BP 141/70, respiratory rate 16, 93% room air, CBC with non-reportable WBC, hemoglobin 7.6, platelets 7, blast 69%, coags PT 15.4, INR 1.2, PTT 48, CMP with sodium 134, glucose 119, lactic acid 0.8, total bilirubin 1.6, AST/ALT 32/22, alk phos 126, urinalysis with no obvious infection, chest x-ray with focal density in the posterior left base primarily on the lateral view consistent with atelectasis infiltrate or mass, CT A/P with large consolidation of the left lower lobe, smaller infiltrate of the right middle lobe, no pleural effusion, no acute abdominal findings, elongated right liver lobe typical of Hai's lobe, mild spinal megaly, normal gallbladder and pancreas, normal size of the kidneys bilaterally without hydronephrosis or ureteral stones, one nonobstructing cortical calcification of the left kidney, renal cyst, diverticulosis without evidence of diverticulitis, no evidence of pelvic mass or free fluid, urine culture and blood culture x2 obtained per ED. In the ED patient administered vancomycin, meropenem, normal saline, Tylenol p.o. x1. 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 Paternal History Items: - - Father with history of RI at age 43. Sibling History Items: - - Sister with a history of lung cancer. Review of Systems Constitutional: Reports: Anorexia, Fever, Malaise, Weakness, Fatigue. Denies: Chills, Weight Change HEENT: Reports: Head Aches. Denies: Sinus Congestion, Sinus Drainage Cardiovascular: Denies: Chest Pain, Palpitations Respiratory: Denies: Cough, Shortness of breath at rest, Sputum production Gastrointestinal: Reports: Abdominal Pain, Nausea, Vomiting Genitourinary: Reports: Retention. Denies: Dysuria Musculoskeletal: Reports: Back Pain, Joint Pain. Denies: Joint Tenderness Skin: Denies: Rash, Wounds Neurological: Denies: Numbness, Tingling, Focal weakness Psychiatric: Denies: Anxiety, Depression, Homicidal Ideations, Suicidal Ideations Hematologic/ Lymphatic: Reports: Anemia, Easy Bruising, Easy Bleeding VTE Information - Inpt Only VTE Present on Admission: No VTE Mechan Device Prophylaxis: SCD's VTE Pharm Prophylaxis ordered?: No Reason prophylaxis not ordered:: Medical Contraindication Patient Problems: Active and Suspected Problems Neutropenic fever (Acute) Sepsis (Acute) Pancytopenia (Acute) Subjective: Seated upright in the ED bed, fatigued appearance. Objective: Physical Examination: General: awake, alert, oriented x 3 and cooperative, seated upright in the ED bed in no apparent distress. Skin: normal color, turgor, no icterus, cyanosis. HEENT: AT/NC, EOMI, PERRLA, dry MM, no carotid bruits or JVD noted. Lungs: Diminished BS BL bases, L>R, moderate effort, no rales, ronchi or wheezing. Heart: Tachycardic with regular rhythm; no gallop, rub audible. Abdomen: soft, obese, NTTP, ND, normal BS, no HSM; however difficult to assess w/ her habitus. Extremities: no cyanosis, clubbing, mild BL ankle nonpitting edema. Neurological: patient awake, alert, oriented x 3; cognitive function intact; pupils equally reactive to light and accomodation; cranial nerves II-XII grossly normal, moving all 4 extremities, no focal deficits, strength moderately globally decreased. Psychiatric: affect appears mildly flat, fatigued, no acute evidence of depressive or anxiety feelings. - Physical Exam Vital Signs Temp Pulse Resp BP Pulse Ox 99.5 F H 108 H 18 141/70 H 93 10/11/18 20:36 10/11/18 18:10 10/11/18 20:36 10/11/18 18:10 10/11/18 18:10 Oxygen Delivery Method Room Air Weight: 208 lb Body Mass Index (BMI) 35.6 Laboratory Tests Past 24 Hrs 10/11/18 10/11/18 10/11/18 18:50 18:50 18:50 WBC Not Reportable Corrected WBC 10.6 RBC 2.51 L Hgb 7.6 L Hct 23.3 L MCV 92.8 MCH 30.3 MCHC 32.6 RDW 19.3 H RDW Differential 61.3 H Plt Count 7 L* MPV TNP Neut % (Auto) Not Reportable Absolute Neuts (auto) 0.1 L Absolute Lymphs (auto) 3.18 Total Counted 100 Neutrophils % (Manual) 1 L Lymphocytes % (Manual) 30 Blast Cells % 69 H* Nucleated RBC % 1.1 Diff Path Review May foll Platelet Estimate MKD DEC Polychromasia RARE Basophilic Stippling RARE Anisocytosis 2+ Absolute Retic 0.11 PT 15.4 H INR 1.2 APTT 48.0 H Sodium 134 L Potassium 3.9 Chloride 102 Carbon Dioxide 28.0 Anion Gap 4 L BUN 9 Creatinine 0.73 Estim Creat Clear Calc 41.97 Est GFR (MDRD) Af Amer 100 Est GFR (MDRD) Non-Af 83 BUN/Creatinine Ratio 12.3 Glucose 119 H Lactic Acid Calcium 9.5 Total Bilirubin 1.60 H AST 32 ALT 22 Alkaline Phosphatase 126 H Total Protein 6.8 Albumin 2.8 L Globulin 4.0 Albumin/Globulin Ratio 0.7 L Urine Color Urine Clarity Urine pH Ur Specific [place] Urine Protein Urine Glucose (UA) Urine Ketones Urine Occult Blood Urine Nitrite Urine Bilirubin Urine Urobilinogen Ur Leukocyte Esterase Urine RBC Urine WBC Ur Squamous Epith Cells Amorphous Sediment Urine Bacteria Urine Mucus 10/11/18 10/11/18 18:50 19:30 WBC Corrected WBC RBC Hgb Hct MCV MCH MCHC RDW RDW Differential Plt Count MPV Neut % (Auto) Absolute Neuts (auto) Absolute Lymphs (auto) Total Counted Neutrophils % (Manual) Lymphocytes % (Manual) Blast Cells % Nucleated RBC % Diff Path Review Platelet Estimate Polychromasia Basophilic Stippling Anisocytosis Absolute Retic PT INR APTT Sodium Potassium Chloride Carbon Dioxide Anion Gap BUN Creatinine Estim Creat Clear Calc Est GFR (MDRD) Af Amer Est GFR (MDRD) Non-Af BUN/Creatinine Ratio Glucose Lactic Acid 0.8 Calcium Total Bilirubin AST ALT Alkaline Phosphatase Total Protein Albumin Globulin Albumin/Globulin Ratio Urine Color Yellow Urine Clarity Sl. Cloudy Urine pH 8.0 Ur Specific [place] 1.010 Urine Protein 30 H Urine Glucose (UA) Normal Urine Ketones Negative Urine Occult Blood Negative Urine Nitrite Negative Urine Bilirubin Negative Urine Urobilinogen 1 H Ur Leukocyte Esterase Negative Urine RBC 0 SEEN Urine WBC 0 SEEN Ur Squamous Epith Cells 0-5 SEEN Amorphous Sediment 1+ PHOS Urine Bacteria 0 SEEN Urine Mucus 0 SEEN Assessment/Plan All Active Problems Neutropenic fever (Acute) Sepsis (Acute) Pancytopenia (Acute) The patient is a 73 y/o F w/ PMHx: HTN off regimen since initiation of chemotherapy secondary to hypotension, Obesity, Urinary Retention with intermittent self-catheterization need, recent Dx AML on chemotherapy (Vidaza) currently completed her 2nd round the week prior to current presentation with planned continued cycles with expected response in ~ 4-6 months to assist with blast reduction, Chronic Pancytopenia requiring plts transfusions often 2-3x/week who presents to the [facility] ED on 10/11/18 with history of generalize malaise, fatigue, poor oral intake, generalized abdominal discomfort primarily BL UQ, L>R in addition to headache without light or sound sensitivity since last chemotherapy (Saturday past) in addition to onset fever on day of ED presentation. (1) Acute Sepsis secondary to Neutropenic fever secondary to HCAP LLL, RML: Febrile, tachycardic, pancytopenic as noted w/ source. LA normal. ED work-up included included T 100, heart rate 108, BP 141/70, respiratory rate 16, 93% room air, CBC with non-reportable WBC, hemoglobin 7.6, platelets 7, blast 69%, coags PT 15.4, INR 1.2, PTT 48, CMP with sodium 134, glucose 119, lactic acid 0.8, total bilirubin 1.6, AST/ALT 32/22, alk phos 126, urinalysis with no obvious infection, chest x-ray with focal density in the posterior left base primarily on the lateral view consistent with atelectasis infiltrate or mass, CT A/P with large consolidation of the left lower lobe, smaller infiltrate of the right middle lobe, no pleural effusion, no acute abdominal findings, elongated right liver lobe typical of Hai's lobe, mild spinal megaly, normal gallbladder and pancreas, normal size of the kidneys bilaterally without hydronephrosis or ureteral stones, one nonobstructing cortical calcification of the left kidney, renal cyst, diverticulosis without evidence of diverticulitis, no evidence of pelvic mass or free fluid, urine culture and blood culture x2 obtained per ED. Oncology aware, consult pending. Will admit to [facility], maintain on Neutropenic precautions, obtain mag and phos level given recent chemotherapy treatments, maintain I&Os, treat with IV meropenem and vancomycin pending cultures, obtain sputum cx although suspect will not be able to give, obtain urine antigens, maintain on ATC duoneb and PRN albuterol, encourage IS, HOB. PRN tylenol, anti-emetics, pain regimen. (2) Acute on chronic pancytopenia: Admission CBC with non-reportable WBC, hemoglobin 7.6, platelets 7, blast 69%, baseline Plts 5-10, requires transfusion 2-3x per week, baseline Hgb 9, discussion with Dr. Knapp with plan to administer 1 u PRBC and 1 pack Plts, noting no need to irradiate products but will need IV Benadryl prior second to pruritus. (3) AML: Patient following w/ Dr. nKapp/Dr. Jimenez, patient on chemotherapy (Vidaza) currently completed her 2nd round the week prior to current presentation with planned continued cycles with expected response in ~ 4-6 months to assist with blast reduction. Mag and Phos pending as noted. Treatment neutropenia as noted #1 and pancytopenia as noted #2. Oncology consulted, aware, pending. Given patient poor oral intake with recent chemotherapy as discussed with patient and family will request nutrition consultation. (4) Urinary Retention, Intermittent: Noted history of urinary retention with intermittent self-catheterization needs, will perform bladder scans and continue home PRN regimen catheterization. UA not marked appearing. (5) Hypertension: No longer on regimen as noted improvement when diagnosed w/ AML, PRN hydralazine. (6) Obesity: Weight loss and lifestyle changes encouraged. (7) DVT Prophylaxis: SCDs, defer chemoprophylaxis given acute on chronic pancytopenia. (8) CODE status: Discussed CODE status at length including difference between FULL code, DNR-CCA and DNR-CC status. Following discussions about the differences in these status, requested DNR-CCA, no intubation status. Daughter x 2 and Son-in-law present she notes are her health care decision makers in the event she is unable. Advanced Care Planning Face to Face Time: 17 minutes. Code Visit Inpatient E&M: 77785 Init Hosp L3 Procedures: 51986 Advncd Care Plan 30 Min
[2018-10-11] MEDS: Acetaminophen 325 MG Tablet 650 MG PO (22:03)
[2018-10-11 22:04] VITALS: BP 123/64; PULSE 100; PULSE 99; RESP 18; O2SAT 89
--- NOTE | 2018-10-11 22:28 | HP.PCM_ITS ---
Problem List (1) Neutropenic fever Status: Acute (2) Sepsis Status: Acute Qualifiers: Sepsis type: sepsis due to unspecified organism Qualified Code(s): A41.9 - Sepsis, unspecified organism (3) Pancytopenia Status: Acute (4) AML (acute myeloblastic leukemia) Status: Chronic Qualifiers: Leukemia Active/Remission status: without remission Qualified Code(s): C92.00 - Acute myeloblastic leukemia, not having achieved remission (5) HTN (hypertension) Status: Chronic Qualifiers: Hypertension type: essential hypertension Qualified Code(s): I10 - Essential (primary) hypertension (6) Obesity Status: Chronic Qualifiers: Obesity type: due to excess calories Obesity classification: adult class 2 (BMI 35 - 39.9) Serious obesity comorbidity presence: with serious comorbidity Body mass index: BMI 35.0-35.9 Qualified Code(s): E66.01 - Morbid (severe) obesity due to excess calories; Z68.35 - Body mass index (BMI) 35.0-35.9, adult History of Present Illness Date of Admission: 10/11/18 Chief Complaint: Malaise, N/V, upper abd discomfort, fever The patient is a 73 y/o F w/ PMHx: HTN off regimen since initiation of chemotherapy secondary to hypotension, Obesity, Urinary Retention with intermittent self-catheterization need, recent Dx AML on chemotherapy (Vidaza) currently completed her 2nd round the week prior to current presentation with planned continued cycles with expected response in ~ 4-6 months to assist with blast reduction, Chronic Pancytopenia requiring plts transfusions often 2- 3x/week who presents to the [facility] ED on 10/11/18 with history of generalize malaise, fatigue, poor oral intake, generalized abdominal discomfort primarily BL UQ, L>R in addition to headache without light or sound sensitivity since last chemotherapy (Saturday past) in addition to onset fever on day of ED presentation. She also noted nausea and emesis over the last 24 hours. She denied any recent cough or dyspnea even with exertion. Patient recommended to present to the [facility] ED for evaluation per Dr. Knapp. In the ED work-up included included T 100, heart rate 108, BP 141/70, respiratory rate 16, 93% room air, CBC with non- reportable WBC, hemoglobin 7.6, platelets 7, blast 69%, coags PT 15.4, INR 1.2, PTT 48, CMP with sodium 134, glucose 119, lactic acid 0.8, total bilirubin 1.6, AST/ALT 32/22, alk phos 126, urinalysis with no obvious infection, chest x-ray with focal density in the posterior left base primarily on the lateral view consistent with atelectasis infiltrate or mass, CT A/P with large consolidation of the left lower lobe, smaller infiltrate of the right middle lobe, no pleural effusion, no acute abdominal findings, elongated right liver lobe typical of Hai's lobe, mild spinal megaly, normal gallbladder and pancreas, normal size of the kidneys bilaterally without hydronephrosis or ureteral stones, one nonobstructing cortical calcification of the left kidney, renal cyst, diverticulosis without evidence of diverticulitis, no evidence of pelvic mass or free fluid, urine culture and blood culture x2 obtained per ED. In the ED patient administered vancomycin, meropenem, normal saline, Tylenol p.o. x1. 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 Paternal History Items: - - Father with history of KS at age 43. Sibling History Items: - - Sister with a history of lung cancer. Review of Systems Constitutional: Reports: Anorexia, Fever, Malaise, Weakness, Fatigue. Denies: Chills, Weight Change HEENT: Reports: Head Aches. Denies: Sinus Congestion, Sinus Drainage Cardiovascular: Denies: Chest Pain, Palpitations Respiratory: Denies: Cough, Shortness of breath at rest, Sputum production Gastrointestinal: Reports: Abdominal Pain, Nausea, Vomiting Genitourinary: Reports: Retention. Denies: Dysuria Musculoskeletal: Reports: Back Pain, Joint Pain. Denies: Joint Tenderness Skin: Denies: Rash, Wounds Neurological: Denies: Numbness, Tingling, Focal weakness Psychiatric: Denies: Anxiety, Depression, Homicidal Ideations, Suicidal Ideations Hematologic/ Lymphatic: Reports: Anemia, Easy Bruising, Easy Bleeding VTE Information - Inpt Only VTE Present on Admission: No VTE Mechan Device Prophylaxis: SCD's VTE Pharm Prophylaxis ordered?: No Reason prophylaxis not ordered:: Medical Contraindication Patient Problems: Active and Suspected Problems Neutropenic fever (Acute) Sepsis (Acute) Pancytopenia (Acute) Subjective: Seated upright in the ED bed, fatigued appearance. Objective: Physical Examination: General: awake, alert, oriented x 3 and cooperative, seated upright in the ED bed in no apparent distress. Skin: normal color, turgor, no icterus, cyanosis. HEENT: AT/NC, EOMI, PERRLA, dry MM, no carotid bruits or JVD noted. Lungs: Diminished BS BL bases, L>R, moderate effort, no rales, ronchi or wheezing. Heart: Tachycardic with regular rhythm; no gallop, rub audible. Abdomen: soft, obese, NTTP, ND, normal BS, no HSM; however difficult to assess w/ her habitus. Extremities: no cyanosis, clubbing, mild BL ankle nonpitting edema. Neurological: patient awake, alert, oriented x 3; cognitive function intact; pupils equally reactive to light and accomodation; cranial nerves II-XII grossly normal, moving all 4 extremities, no focal deficits, strength moderately globally decreased. Psychiatric: affect appears mildly flat, fatigued, no acute evidence of depressive or anxiety feelings. - Physical Exam Vital Signs Temp Pulse Resp BP Pulse Ox 99.5 F H 108 H 18 141/70 H 93 10/11/18 20:36 10/11/18 18:10 10/11/18 20:36 10/11/18 18:10 10/11/18 18:10 Oxygen Delivery Method Room Air Weight: 208 lb Body Mass Index (BMI) 35.6 Laboratory Tests Past 24 Hrs 10/11/18 10/11/18 10/11/18 18:50 18:50 18:50 WBC Not Reportable Corrected WBC 10.6 RBC 2.51 L Hgb 7.6 L Hct 23.3 L MCV 92.8 MCH 30.3 MCHC 32.6 RDW 19.3 H RDW Differential 61.3 H Plt Count 7 L* MPV TNP Neut % (Auto) Not Reportable Absolute Neuts (auto) 0.1 L Absolute Lymphs (auto) 3.18 Total Counted 100 Neutrophils % (Manual) 1 L Lymphocytes % (Manual) 30 Blast Cells % 69 H* Nucleated RBC % 1.1 Diff Path Review May foll Platelet Estimate MKD DEC Polychromasia RARE Basophilic Stippling RARE Anisocytosis 2+ Absolute Retic 0.11 PT 15.4 H INR 1.2 APTT 48.0 H Sodium 134 L Potassium 3.9 Chloride 102 Carbon Dioxide 28.0 Anion Gap 4 L BUN 9 Creatinine 0.73 Estim Creat Clear Calc 41.97 Est GFR (MDRD) Af Amer 100 Est GFR (MDRD) Non-Af 83 BUN/Creatinine Ratio 12.3 Glucose 119 H Lactic Acid Calcium 9.5 Total Bilirubin 1.60 H AST 32 ALT 22 Alkaline Phosphatase 126 H Total Protein 6.8 Albumin 2.8 L Globulin 4.0 Albumin/Globulin Ratio 0.7 L Urine Color Urine Clarity Urine pH Ur Specific [place] Urine Protein Urine Glucose (UA) Urine Ketones Urine Occult Blood Urine Nitrite Urine Bilirubin Urine Urobilinogen Ur Leukocyte Esterase Urine RBC Urine WBC Ur Squamous Epith Cells Amorphous Sediment Urine Bacteria Urine Mucus 10/11/18 10/11/18 18:50 19:30 WBC Corrected WBC RBC Hgb Hct MCV MCH MCHC RDW RDW Differential Plt Count MPV Neut % (Auto) Absolute Neuts (auto) Absolute Lymphs (auto) Total Counted Neutrophils % (Manual) Lymphocytes % (Manual) Blast Cells % Nucleated RBC % Diff Path Review Platelet Estimate Polychromasia Basophilic Stippling Anisocytosis Absolute Retic PT INR APTT Sodium Potassium Chloride Carbon Dioxide Anion Gap BUN Creatinine Estim Creat Clear Calc Est GFR (MDRD) Af Amer Est GFR (MDRD) Non-Af BUN/Creatinine Ratio Glucose Lactic Acid 0.8 Calcium Total Bilirubin AST ALT Alkaline Phosphatase Total Protein Albumin Globulin Albumin/Globulin Ratio Urine Color Yellow Urine Clarity Sl. Cloudy Urine pH 8.0 Ur Specific [place] 1.010 Urine Protein 30 H Urine Glucose (UA) Normal Urine Ketones Negative Urine Occult Blood Negative Urine Nitrite Negative Urine Bilirubin Negative Urine Urobilinogen 1 H Ur Leukocyte Esterase Negative Urine RBC 0 SEEN Urine WBC 0 SEEN Ur Squamous Epith Cells 0-5 SEEN Amorphous Sediment 1+ PHOS Urine Bacteria 0 SEEN Urine Mucus 0 SEEN Assessment/Plan All Active Problems Neutropenic fever (Acute) Sepsis (Acute) Pancytopenia (Acute) The patient is a 73 y/o F w/ PMHx: HTN off regimen since initiation of chemotherapy secondary to hypotension, Obesity, Urinary Retention with intermittent self-catheterization need, recent Dx AML on chemotherapy (Vidaza) currently completed her 2nd round the week prior to current presentation with planned continued cycles with expected response in ~ 4-6 months to assist with blast reduction, Chronic Pancytopenia requiring plts transfusions often 2- 3x/week who presents to the [facility] ED on 10/11/18 with history of generalize malaise, fatigue, poor oral intake, generalized abdominal discomfort primarily BL UQ, L>R in addition to headache without light or sound sensitivity since last chemotherapy (Saturday past) in addition to onset fever on day of ED presentation. (1) Acute Sepsis secondary to Neutropenic fever secondary to HCAP LLL, RML: Febrile, tachycardic, pancytopenic as noted w/ source. LA normal. ED work-up included included T 100, heart rate 108, BP 141/70, respiratory rate 16, 93% room air, CBC with non-reportable WBC, hemoglobin 7.6, platelets 7, blast 69%, coags PT 15.4, INR 1.2, PTT 48, CMP with sodium 134, glucose 119, lactic acid 0.8, total bilirubin 1.6, AST/ALT 32/22, alk phos 126, urinalysis with no obvious infection, chest x-ray with focal density in the posterior left base primarily on the lateral view consistent with atelectasis infiltrate or mass, CT A/P with large consolidation of the left lower lobe, smaller infiltrate of the right middle lobe, no pleural effusion, no acute abdominal findings, elongated right liver lobe typical of Hai's lobe, mild spinal megaly, normal gallbladder and pancreas, normal size of the kidneys bilaterally without hydronephrosis or ureteral stones, one nonobstructing cortical calcification of the left kidney, renal cyst, diverticulosis without evidence of diverticulitis, no evidence of pelvic mass or free fluid, urine culture and blood culture x2 obtained per ED. Oncology aware, consult pending. Will admit to [facility], maintain on Neutropenic precautions, obtain mag and phos level given recent chemotherapy treatments, maintain I&Os, treat with IV meropenem and vancomycin pending cultures, obtain sputum cx although suspect will not be able to give, obtain urine antigens, maintain on ATC duoneb and PRN albuterol, encourage IS, HOB. PRN tylenol, anti-emetics, pain regimen. (2) Acute on chronic pancytopenia: Admission CBC with non-reportable WBC, hemoglobin 7.6, platelets 7, blast 69%, baseline Plts 5-10, requires transfusion 2-3x per week, baseline Hgb 9, discussion with Dr. Knapp with plan to administer 1 u PRBC and 1 pack Plts, noting no need to irradiate products but will need IV Benadryl prior second to pruritus. (3) AML: Patient following w/ Dr. Knapp/Dr. Jimenez, patient on chemotherapy (Vidaza) currently completed her 2nd round the week prior to current presentation with planned continued cycles with expected response in ~ 4-6 months to assist with blast reduction. Mag and Phos pending as noted. Treatment neutropenia as noted #1 and pancytopenia as noted #2. Oncology consulted, aware, pending. Given patient poor oral intake with recent chemotherapy as discussed with patient and family will request nutrition consultation. (4) Urinary Retention, Intermittent: Noted history of urinary retention with intermittent self-catheterization needs, will perform bladder scans and continue home PRN regimen catheterization. UA not marked appearing. (5) Hypertension: No longer on regimen as noted improvement when diagnosed w/ AML, PRN hydralazine. (6) Obesity: Weight loss and lifestyle changes encouraged. (7) DVT Prophylaxis: SCDs, defer chemoprophylaxis given acute on chronic pancytopenia. (8) CODE status: Discussed CODE status at length including difference between FULL code, DNR-CCA and DNR-CC status. Following discussions about the differences in these status, requested DNR-CCA, no intubation status. Daughter x 2 and Son-in-law present she notes are her health care decision makers in the event she is unable. Advanced Care Planning Face to Face Time: 17 minutes. Code Visit Inpatient E&M: 22321 Init Hosp L3 Procedures: 39375 Advncd Care Plan 30 Min
[2018-10-11 22:37] VITALS: BP 127/73; PULSE 91; RESP 16; TEMP 37.3; O2SAT 99
[2018-10-11 22:38] VITALS: BMI 36.1
[2018-10-11 22:42] VITALS: BMI 36.1
--- NOTE | 2018-10-11 23:21 | NURSING ---
Blood bank calling for clarification about whether platelets and blood need to be CMV neg. and irradiated. Dr. Leggett paged for clarification and order clarified for both platelets and blood to be CMV neg, but not irradiated. Clarification given to Laya in blood bank.
[2018-10-11] MEDS: 0.9% Normal Saline 1,000 ML 125 ML IV (23:28)
[2018-10-11 23:30] LABS: Magnesium 1.9 mg/dL (1.6-2.6)
--- NOTE | 2018-10-11 23:50 | PCM.RX.CS ---
Consult Pharmacy has been consulted to manage selected antiobiotic: Vancomycin Type of Consult: New start Suspected Infection: Sepsis Prior Doses of Antibiotics Received/Current Regimen: Medications Meropenem 500 mg/ Sodium (Chloride) 60 mls @ 100 mls/hr IV Q6 [facility] Labs: Sodium 134 mmol/L (136-145) L 10/11/18 18:50 Potassium 3.9 mmol/L (3.5-5.1) 10/11/18 18:50 Chloride 102 mmol/L (98-107) 10/11/18 18:50 Carbon Dioxide 28.0 mmol/L (21.0-32.0) 10/11/18 18:50 Anion Gap 4 (5-15) L 10/11/18 18:50 BUN 9 mg/dL (7-18) 10/11/18 18:50 Creatinine 0.73 mg/dL (0.55-1.02) 10/11/18 18:50 Est GFR (MDRD) Af Amer 100 mL/min (>60) 10/11/18 18:50 Est GFR (MDRD) Non-Af 83 mL/min (>60) 10/11/18 18:50 BUN/Creatinine Ratio 12.3 RATIO (10-20) 10/11/18 18:50 Glucose 119 mg/dL (74-106) H 10/11/18 18:50 Weight used for dosin.5 kg Estimated Creatinine Clearance: 41.97 Goal Trough: 10-15 mcg/mL Pharmacy Plan for Drug Dosing: Pharmacy Service will continue to monitor and adjust dosing as required. Medications Vancomycin HCl 1,250 mg/ (Sodium Chloride) 275 mls @ 167 mls/hr IV Q24H JOHANNY Discontinued Medications Vancomycin HCl 1,500 mg/ (Sodium Chloride) 530 mls @ 250 mls/hr IV X1 ONE Stop: 10/11/18 21:07 Last Admin: 10/11/18 20:29 Dose: 250 mls/hr Follow-Up Labs: Trough Vancomycin Labs to be done on [date and time ordered]: 10/13 @ 4669
[2018-10-12] VITALS (13 sets, daily range): BP systolic 118–133; BP diastolic 65–70; PULSE 83–96; RESP 16–20; TEMP 36.7–38.1; O2SAT 92–98
[2018-10-12 06:29] LABS: Anion Gap 8 (5-15); BUN 9 mg/dL (7-18); BUN/Creat Ratio 13.1 RATIO (10-20); Calcium,Total 9.6 mg/dL (8.5-10.1); Chloride 107 mmol/L (98-107); Creatinine, Serum 0.69 mg/dL (0.55-1.02); EST Glomerular Filtration Rate 88 mL/min (>60); Est Glom Filt Rate - Afr Amer 107 mL/min (>60); Estimated Creatinine Clearance 41.97 ml/min; Glucose 99 mg/dL (74-106); Potassium 3.7 mmol/L (3.5-5.1); Sodium Level 141 mmol/L (136-145)
[2018-10-12 06:32] LABS: Absolute Neutrophil Count 0.7 X10^3/uL (2.0-7.7); Basophil# 0.02 X10^3/uL; Basophil% 0.2 % (0-1); Eosinophil# 0.02 X10^3/uL; Eosinophils% 0.2 % (0-5); Hematocrit 24.5 % (37-47); Hemoglobin 7.9 g/dl (12.0-15.0); Lymphocyte % 76.6 % (19-41); Mean Corp Hgb Conc 32.2 g/gl (32-36); Mean Corpuscular Hgb 29.7 pg (27.0-32.0); Mean Corpuscular Volume 92.1 fL (81-99); Monocyte# 1.53 X10^3/uL; Monocyte% 15.8 % (0-10); Neutrophil # 0.69 X10^3/uL (2.7-7.7); Neutrophil % 7.2 % (47-70); RBC Distribution Width CV 18.9 % (11.6-14.6); RBC Distribution Width SD 58.3 fl (35.1-43.9); Red Blood Count 2.66 M/mm3 (4.2-5.4); White Blood Count 9.7 K/mm3 (4.4-11.0)
[2018-10-12 06:37] LABS: Differential Indicated SCAN CRITERIA MET; POSITIVE COUNT YES; POSITIVE DIFFERENTIAL YES; POSITIVE MORPHOLOGY YES; Platelet Count 6 K/mm3 (150-450)
[2018-10-12 06:38] LABS: Absolute Nucleated RBC Count 0.07 10^3/uL (0-5); NRBC Flagged by Analyzer 0.7 % (0-5)
[2018-10-12 07:07] LABS: Anisocytosis 1+; Differential Comment SCAN; Hypochromasia 2+; Microcytosis 1+; Platelet Estimate MKD DEC (ADEQ); Polychromasia 1+
--- NOTE | 2018-10-12 07:07 | PCM.CONS.B ---
Problem List (1) Neutropenic fever Status: Acute (2) AML (acute myeloblastic leukemia) Status: Chronic Qualifiers: Leukemia Active/Remission status: without remission Qualified Code(s): C92.00 - Acute myeloblastic leukemia, not having achieved remission - Consult Date of Consult: 10/12/18 - Reason for Consult HPI: The patient is a 73-year-old female with a past medical history significant for hypertension who was seen by her PCP in July 2018 for increasing fatigue and headache. CBC evidently revealed pancytopenia with 68% blasts on peripheral smear. Patient was admitted directly to [facility]. BONE MARROW ASPIRATE, TOUCH PREPARATION, CLOT SECTION, CORE BIOPSY AND PERIPHERAL BLOOD (A-C): - ?ACUTE MYELOID LEUKEMIA, SEE COMMENT. COMMENT: Further subclassification requires correlation with clinical presentation and with pending molecular and cytogenetic studies. 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 Patient opted for 'low dose' therapy with Vidaza. Had completed two cycles as of last week. Has chronic thrombocytopenia with highest plt count since diagnosis ~15K. Neutropenic from time of diagnosis and was on oral prophylactic Levaquin. Developed fever to 101 last pm. Presented to ED and CBC confirmed neutropenia. CT A/P was done due to complaint of abdominal pain. Incidental LLL infiltrate. Patient has occasional cough chronically with sputum production, but his is chronic. Cannot expectorate sputum. Not short of breath at rest or with walking. No chest pain or wheezing. Had not had rigors in last few days. Bowels had not moved for about 6 days. Moved yesterday. Abdominal pain improved. She says she is feeling better overall this am. Appetite is normal. Fever resolving. Allergies No Known Allergies Allergy (Verified 10/11/18 22:58) Current Medications Acetaminophen (Tylenol) 650 mg PO Q4H PRN PRN PRN Reason: FEVER Hydrocodone Bitart/Acetaminophen ([place] 5mg-325mg) 1 - 2 tablet PO Q6H PRN PRN PRN Reason: Moderate-severe pain Acyclovir (Zovirax) 400 mg PO BID JOHANNY Al Hydroxide/Mg Hydroxide (Mylanta Ii) 30 ml PO Q6H PRN PRN PRN Reason: Gastric burning Albuterol Sulfate (Ventolin Aerosols) 2.5 mg INHALATION Q2H PRN PRN PRN Reason: SHORTNESS OF BREATH Diphenhydramine HCl (Benadryl) 25 mg IV X1 PRN Famotidine (Pepcid) 20 mg PO BID JOHANNY Hydralazine HCl (Apresoline Iv) 10 mg IV Q4H PRN PRN PRN Reason: SBP > 160 Sodium Chloride () 1,000 mls @ 125 mls/hr IV .Q8H JOHANNY Last Admin: 10/11/18 23:28 Dose: 125 mls/hr Meropenem 500 mg/ Sodium (Chloride) 60 mls @ 100 mls/hr IV Q6 JOHANNY Last Admin: 10/12/18 05:28 Dose: 100 mls/hr Vancomycin IV Pharmacy to Dose (1 ea/ Sodium Chloride) 500 mls @ 250 mls/hr IV X1 PRN; Protocol PRN Reason: Rx to Dose Sodium Chloride () 250 mls @ 15 mls/hr IV .[id number] PRN PRN Reason: SALINE FLUSH Vancomycin HCl 1,250 mg/ (Sodium Chloride) 275 mls @ 167 mls/hr IV Q24H [facility] Magnesium Hydroxide (Milk Of Magnesia) 30 ml PO DAILY PRN PRN PRN Reason: Constipation Morphine Sulfate () 1 - 2 mg IV Q4H PRN PRN PRN Reason: PAIN Nutritional Formula (Lactose Free) (Ensure Clear) 120 ml PO 4X/DAY [facility] Ondansetron HCl (Zofran) 4 mg IV Q8H PRN PRN PRN Reason: NAUSEA Promethazine HCl (Phenergan) 12.5 mg IV Q6H PRN PRN PRN Reason: NAUSEA/VOMITING Sodium Chloride () 5 - 30 ml IV UD PRN PRN Reason: SALINE FLUSH SOC: Non-smoker. No EtOH use. Lives with and family in [place], [place]. ROS: Constitutional: No recent changes in weight. Neuro: Denies recent changes in vision, hearing and balance. Denies symptoms of neuropathy. +PARRA. HEENT: Denies sinus pain or pressure. Denies nasal discharge. Denies recent sore throat. Resp: See above. CVS: Denies exertional chest pain, PND, orthopnea. GI: Denies reflux, n/v, and melena or hematochezia. : Denies dysuria, frequency and gross hematuria. Endo: Denies hot flashes. Heat and cold intolerance. Musculoskeletal: Denies bone, back, joint and muscular pain. Heme: Denies episodes of unusual bleeding and unexplained bruising. Psych: Mood has been normal. PHYSICAL EXAM: Vitals: Vital Signs Temp 98.1 F 10/12/18 05:18 Pulse 83 10/12/18 05:18 Resp 18 10/12/18 05:18 BP 129/67 H 10/12/18 05:18 Pulse Ox 98 10/12/18 05:18 Intake & Output 10/10/18 10/11/18 10/12/18 23:59 23:59 23:59 Intake Total 683 / 683 943 / 943 Output Total 150 / 150 Balance 683 / 683 793 / 793 Weight: 95.5 kg Intake: Oral 250 / 250 IV fluid/meds 683 / 683 400 / 400 Blood Product 293 / 293 Leuko-Reduced Red Blood Cells 293 / 293 Unit [id number] Output: #2 Urine 150 / 150 Other: Number of Bowel Movements 1 GENERAL: Looks well and is in no acute distress. EYES: Sclerae are anicteric bilaterally. ENT: Oral mucosa is unremarkable. No sign of thrush or mucositis. No evidence of gingival or mucosal bleeding. NECK: Supple. LYMPHATIC: No palpable peripheral adenopathy. RESPIRATORY: Inspiratory breath sounds are of normal intensity in all delgado except left base. There is decreased air entry and faint crackles there. No wheeze or coarse rhonchi. CARDIOVASCULAR: Rhythm is regular. Normal intensity S1/S2. ABDOMEN: The abdomen is nondistended. Bowel sounds are present. Mild tenderness upper abdomen. SKIN: No jaundice or rash. NEUROLOGIC: AAO x3; No focal motor weakness. ASSESSMENT/PLAN: 1) Neutropenic fever. Assessment: -Patient developed fever while on Levaquin with no other symptoms--cough is infrequent, chronic and unchanged. -Subjectively feeling better on broader spectrum antibiotics. Plan: -Continue meropenem and vancomycin for now. 2) LLL infiltrate. Assessment: -CT images reviewed. Rather dense and large infiltrate LLL. -May be evolving fungal pneumonia, but I would expect her symptoms to be much more pronounced. -She appears to be responding to broader spec antibiotics as noted above. Plan: -Follow up CT chest with IV contrast in several days if continues to remain afebrile and blood cultures do not indicate more urgent need for CT. 3) Pancytopenia. Assessment: -Secondary to AML. -No bleeding issues. -Does not need irradiated blood products. Plan: -Transfuse 1 unit platelets for plt count <10K. -No growth factors. -Transfuse RBCs for Hgb <7-7.5 g/dL pending symptoms. 4) AML. Assessment: -Blast count remains significantly high following 2 cycles of Vidaza. Plan: -Further therapy will depend on outcome of problems above.
--- NOTE | 2018-10-12 07:11 | CON.PCM_ITS ---
Problem List (1) Neutropenic fever Status: Acute (2) AML (acute myeloblastic leukemia) Status: Chronic Qualifiers: Leukemia Active/Remission status: without remission Qualified Code(s): C92.00 - Acute myeloblastic leukemia, not having achieved remission - Consult Date of Consult: 10/12/18 - Reason for Consult HPI: The patient is a 73-year-old female with a past medical history significant for hypertension who was seen by her PCP in July 2018 for increasing fatigue and headache. CBC evidently revealed pancytopenia with 68% blasts on p eripheral smear. Patient was admitted directly to [facility]. BONE MARROW ASPIRATE, TOUCH PREPARATION, CLOT SECTION, CORE BIOPSY AND PERIPHERAL BLOOD (A-C): - ?ACUTE MYELOID LEUKEMIA, SEE COMMENT. COMMENT: Further subclassification requires correlation with clinical presentation and with pending molecular and cytogenetic studies. 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 Patient opted for 'low dose' therapy with Vidaza. Had completed two cycles as of last week. Has chronic thrombocytopenia with highest plt count since diagnosis ~15K. Neutropenic from time of diagnosis and was on oral prophylactic Levaquin. Developed fever to 101 last pm. Presented to ED and CBC confirmed neutropenia. CT A/P was done due to complaint of abdominal pain. Incidental LLL infiltrate. Patient has occasional cough chronically with sputum production, but his is chronic. Cannot expectorate sputum. Not short of breath at rest or with walking. No chest pain or wheezing. Had not had rigors in last few days. Bowels had not moved for about 6 days. Moved yesterday. Abdominal pain improved. She says she is feeling better overall this am. Appetite is normal. Fever resolving. Allergies No Known Allergies Allergy (Verified 10/11/18 22:58) Current Medications Acetaminophen (Tylenol) 650 mg PO Q4H PRN PRN PRN Reason: FEVER Hydrocodone Bitart/Acetaminophen ([place] 5mg-325mg) 1 - 2 tablet PO Q6H PRN PRN PRN Reason: Moderate-severe pain Acyclovir (Zovirax) 400 mg PO BID JOHANNY Al Hydroxide/Mg Hydroxide (Mylanta Ii) 30 ml PO Q6H PRN PRN PRN Reason: Gastric burning Albuterol Sulfate (Ventolin Aerosols) 2.5 mg INHALATION Q2H PRN PRN PRN Reason: SHORTNESS OF BREATH Diphenhydramine HCl (Benadryl) 25 mg IV X1 PRN Famotidine (Pepcid) 20 mg PO BID [facility] Hydralazine HCl (Apresoline Iv) 10 mg IV Q4H PRN PRN PRN Reason: SBP > 160 Sodium Chloride () 1,000 mls @ 125 mls/hr IV .Q8H [facility] Last Admin: 10/11/18 23:28 Dose: 125 mls/hr Meropenem 500 mg/ Sodium (Chloride) 60 mls @ 100 mls/hr IV Q6 JOHANNY Last Admin: 10/12/18 05:28 Dose: 100 mls/hr Vancomycin IV Pharmacy to Dose (1 ea/ Sodium Chloride) 500 mls @ 250 mls/hr IV X1 PRN; Protocol PRN Reason: Rx to Dose Sodium Chloride () 250 mls @ 15 mls/hr IV .[id number] PRN PRN Reason: SALINE FLUSH Vancomycin HCl 1,250 mg/ (Sodium Chloride) 275 mls @ 167 mls/hr IV Q24H [facility] Magnesium Hydroxide (Milk Of Magnesia) 30 ml PO DAILY PRN PRN PRN Reason: Constipation Morphine Sulfate () 1 - 2 mg IV Q4H PRN PRN PRN Reason: PAIN Nutritional Formula (Lactose Free) (Ensure Clear) 120 ml PO 4X/DAY [facility] Ondansetron HCl (Zofran) 4 mg IV Q8H PRN PRN PRN Reason: NAUSEA Promethazine HCl (Phenergan) 12.5 mg IV Q6H PRN PRN PRN Reason: NAUSEA/VOMITING Sodium Chloride () 5 - 30 ml IV UD PRN PRN Reason: SALINE FLUSH SOC: Non-smoker. No EtOH use. Lives with and family in [place], [place]. ROS: Constitutional: No recent changes in weight. Neuro: Denies recent changes in vision, hearing and balance. Denies symptoms of neuropathy. +PARRA. HEENT: Denies sinus pain or pressure. Denies nasal discharge. Denies recent sore throat. Resp: See above. CVS: Denies exertional chest pain, PND, orthopnea. GI: Denies reflux, n/v, and melena or hematochezia. : Denies dysuria, frequency and gross hematuria. Endo: Denies hot flashes. Heat and cold intolerance. Musculoskeletal: Denies bone, back, joint and muscular pain. Heme: Denies episodes of unusual bleeding and unexplained bruising. Psych: Mood has been normal. PHYSICAL EXAM: Vitals: Vital Signs Temp 98.1 F 10/12/18 05:18 Pulse 83 10/12/18 05:18 Resp 18 10/12/18 05:18 BP 129/67 H 10/12/18 05:18 Pulse Ox 98 10/12/18 05:18 Intake & Output 10/10/18 10/11/18 10/12/18 23:59 23:59 23:59 Intake Total 683 / 683 943 / 943 Output Total 150 / 150 Balance 683 / 683 793 / 793 Weight: 95.5 kg Intake: Oral 250 / 250 IV fluid/meds 683 / 683 400 / 400 Blood Product 293 / 293 Leuko-Reduced Red Blood Cells 293 / 293 Unit [id number] Output: #2 Urine 150 / 150 Other: Number of Bowel Movements 1 GENERAL: Looks well and is in no acute distress. EYES: Sclerae are anicteric bilaterally. ENT: Oral mucosa is unremarkable. No sign of thrush or mucositis. No evidence of gingival or mucosal bleeding. NECK: Supple. LYMPHATIC: No palpable peripheral adenopathy. RESPIRATORY: Inspiratory breath sounds are of normal intensity in all delgado except left base. There is decreased air entry and faint crackles there. No wheeze or coarse rhonchi. CARDIOVASCULAR: Rhythm is regular. Normal intensity S1/S2. ABDOMEN: The abdomen is nondistended. Bowel sounds are present. Mild tenderness upper abdomen. SKIN: No jaundice or rash. NEUROLOGIC: AAO x3; No focal motor weakness. ASSESSMENT/PLAN: 1) Neutropenic fever. Assessment: -Patient developed fever while on Levaquin with no other symptoms--cough is infrequent, chronic and unchanged. -Subjectively feeling better on broader spectrum antibiotics. Plan: -Continue meropenem and vancomycin for now. 2) LLL infiltrate. Assessment: -CT images reviewed. Rather dense and large infiltrate LLL. -May be evolving fungal pneumonia, but I would expect her symptoms to be much more pronounced. -She appears to be responding to broader spec antibiotics as noted above. Plan: -Follow up CT chest with IV contrast in several days if continues to remain afebrile and blood cultures do not indicate more urgent need for CT. 3) Pancytopenia. Assessment: -Secondary to AML. -No bleeding issues. -Does not need irradiated blood products. Plan: -Transfuse 1 unit platelets for plt count <10K. -No growth factors. -Transfuse RBCs for Hgb <7-7.5 g/dL pending symptoms. 4) AML. Assessment: -Blast count remains significantly high following 2 cycles of Vidaza. Plan: -Further therapy will depend on outcome of problems above.
[2018-10-12] MEDS: 0.9% Normal Saline 1,000 ML 125 ML IV ×2 (09:35→21:16)
[2018-10-12] MEDS: Acyclovir 200 MG Capsule 400 MG PO ×2 (10:01→21:08)
[2018-10-12] MEDS: Famotidine 20 MG Tablet PO ×2 (10:01→21:08)
--- NOTE | 2018-10-12 10:40 | PCM.PROGNOTE ---
Patient Problems: Active and Suspected Problems Neutropenic fever (Acute) Sepsis (Acute) Pancytopenia (Acute) Subjective: Mrs. Scott is a 73-year-old female with a past medical history of hypertension, obesity, urine retention with intermittent self-catheterization as needed and recently diagnosed AML being treated with chemotherapy by Dr. Knapp. She presented to the emergency department at [facility] on 10/11/2018 complaining of generalized weakness, fatigue, poor appetite, nausea/vomiting and abdominal discomfort since her chemotherapy 10/10/2018. Temperature was elevated in the emergency room to 100 ?F (despite OP Levaquin)and the heart rate was increased to 108 bpm. She was 93% saturated on room air. Hemoglobin was low at 7.6 and platelets were 7000. White blood cell count was unrecordable. Lactic acid was 0.8. Urinalysis had no significant pyuria however the patient has severe leukopenia. Chest x-ray showed a focal increased area of density in the posterior left base suspected to be secondary to possible infiltrate. CT of the abdomen and pelvis revealed a large consolidation in the left lower lobe with a smaller infiltrate in the right middle lobe. There were no acute abdominal findings. Gallbladder and pancreas appeared normal. She received vancomycin and meropenem in the emergency room and admitted to the hospital with a diagnosis of sepsis secondary to HCAP in a patient who is neutropenic on chemotherapy. Meropenem and vancomycin were continued at admission. Patient was given 1 unit of apheresed platelets and 1 unit of packed red blood cells. Patient has been seen by Dr. Knapp in consult. Dr. Knapp did not recommend growth factors. Day #2 meropenem and vancomycin T-max 100 ?F and current temp is 98.8 Blood pressure and heart rate are stable and she is not requiring pressors. She is 96% saturated on room air today. White blood cell count today is 9.7. She had 69% blast cells at admission. Hemoglobin is 7.9 following transfusion and platelets are still low at 6000 but she has not received any PLT's yet Electrolytes are within normal limits and the BUN is 9 with a creatinine of 0.69. Phosphorus and magnesium were normal at admission. She has an occasional cough and was able to produce a small amount of sputum which is yellow tinged. She denies any hemoptysis. She denies chest pain and also denies shortness of breath. She states that she feels somewhat better since she received the packed red blood cells. Denies nausea, vomiting, diarrhea, abdominal pain. No hematochezia or melena. - Physical Exam General: Alert, Oriented x3, Cooperative, No apparent distress HEENT: Atraumatic, PERRLA, EOMI, Normocephalic Oral: Moist Mucosa, No Gingival or Mucosal Lesions/ Ulcerations - but she is c/o a bad taste in her mouth and the tongue is coated Neck: Supple, Negative Carotid Bruits, No Nuchal Rigidity, Trachea Midline Lungs: Clear to auscultation Cardiovascular: Regular rate, Regular Rhythm, Normal S1, Normal S2, No murmurs, No rub noted, No Gallop Abdomen: Bowel Sounds Present, Soft, Non Tender, Non-Distended, No Hepato-splenomegaly Extremities: No clubbing, No cyanosis, No edema, Peripheral Pulses Normal Neurological: Cranial nerves II-XII grossly intact, Neuro grossly intact Psych/Mental Status: Appropriate Vital Signs Temp Pulse Resp BP Pulse Ox 98.8 F 94 16 127/66 H 96 10/12/18 09:51 10/12/18 09:51 10/12/18 09:51 10/12/18 09:51 10/12/18 09:51 Oxygen Flow Rate (L/min) 1 Oxygen Delivery Method Room Air Weight: 210 lb 8.663 oz Body Mass Index (BMI) 36.1 Intake and Output for Last 24 Hours 10/10/18 10/11/18 10/12/18 23:59 23:59 23:59 Intake Total 683 / 683 943 / 943 Output Total 150 / 150 Balance 683 / 683 793 / 793 Microbiology Past 72 Hours 10/11/18 19:30 Legionella Antigen - Final Urine, Clean Catch 10/11/18 19:30 Streptococcus pneumoniae Antigen (M - Final Urine, Clean Catch Laboratory Tests Past 24 Hrs 10/11/18 10/11/18 10/11/18 18:50 18:50 18:50 WBC Not Reportable Corrected WBC 10.6 RBC 2.51 L Hgb 7.6 L Hct 23.3 L MCV 92.8 MCH 30.3 MCHC 32.6 RDW 19.3 H RDW Differential 61.3 H Plt Count 7 L* MPV TNP Immature Gran % (Auto) Neut % (Auto) Not Reportable Lymph % (Auto) [place] % (Auto) Eos % (Auto) Baso % (Auto) Absolute Neuts (auto) 0.1 L Absolute Lymphs (auto) 3.18 Total Counted 100 Neutrophils % (Manual) 1 L Lymphocytes % (Manual) 30 Blast Cells % 69 H* Nucleated RBC % 1.1 Differential Comment Diff Path Review May foll Platelet Estimate MKD DEC Polychromasia RARE Hypochromasia Basophilic Stippling RARE Anisocytosis 2+ Microcytosis Absolute Retic 0.11 PT 15.4 H INR 1.2 APTT 48.0 H Sodium 134 L Potassium 3.9 Chloride 102 Carbon Dioxide 28.0 Anion Gap 4 L BUN 9 Creatinine 0.73 Estim Creat Clear Calc 41.97 Est GFR (MDRD) Af Amer 100 Est GFR (MDRD) Non-Af 83 BUN/Creatinine Ratio 12.3 Glucose 119 H Lactic Acid Calcium 9.5 Phosphorus Magnesium Total Bilirubin 1.60 H AST 32 ALT 22 Alkaline Phosphatase 126 H Total Protein 6.8 Albumin 2.8 L Globulin 4.0 Albumin/Globulin Ratio 0.7 L Urine Color Urine Clarity Urine pH Ur Specific [place] Urine Protein Urine Glucose (UA) Urine Ketones Urine Occult Blood Urine Nitrite Urine Bilirubin Urine Urobilinogen Ur Leukocyte Esterase Urine RBC Urine WBC Ur Squamous Epith Cells Amorphous Sediment Urine Bacteria Urine Mucus Blood Type A1 Antigen Typing Rho(D) Type Antibody Screen Crossmatch 10/11/18 10/11/18 10/11/18 18:50 19:30 23:00 WBC Corrected WBC RBC Hgb Hct MCV MCH MCHC RDW RDW Differential Plt Count MPV Immature Gran % (Auto) Neut % (Auto) Lymph % (Auto) [place] % (Auto) Eos % (Auto) Baso % (Auto) Absolute Neuts (auto) Absolute Lymphs (auto) Total Counted Neutrophils % (Manual) Lymphocytes % (Manual) Blast Cells % Nucleated RBC % Differential Comment Diff Path Review Platelet Estimate Polychromasia Hypochromasia Basophilic Stippling Anisocytosis Microcytosis Absolute Retic PT INR APTT Sodium Potassium Chloride Carbon Dioxide Anion Gap BUN Creatinine Estim Creat Clear Calc Est GFR (MDRD) Af Amer Est GFR (MDRD) Non-Af BUN/Creatinine Ratio Glucose Lactic Acid 0.8 Calcium Phosphorus Magnesium 1.9 Total Bilirubin AST ALT Alkaline Phosphatase Total Protein Albumin Globulin Albumin/Globulin Ratio Urine Color Yellow Urine Clarity Sl. Cloudy Urine pH 8.0 Ur Specific [place] 1.010 Urine Protein 30 H Urine Glucose (UA) Normal Urine Ketones Negative Urine Occult Blood Negative Urine Nitrite Negative Urine Bilirubin Negative Urine Urobilinogen 1 H Ur Leukocyte Esterase Negative Urine RBC 0 SEEN Urine WBC 0 SEEN Ur Squamous Epith Cells 0-5 SEEN Amorphous Sediment 1+ PHOS Urine Bacteria 0 SEEN Urine Mucus 0 SEEN Blood Type A1 Antigen Typing Rho(D) Type Antibody Screen Crossmatch 10/11/18 10/11/18 10/11/18 23:00 23:00 23:00 WBC Corrected WBC RBC Hgb Hct MCV MCH MCHC RDW RDW Differential Plt Count MPV Immature Gran % (Auto) Neut % (Auto) Lymph % (Auto) [place] % (Auto) Eos % (Auto) Baso % (Auto) Absolute Neuts (auto) Absolute Lymphs (auto) Total Counted Neutrophils % (Manual) Lymphocytes % (Manual) Blast Cells % Nucleated RBC % Differential Comment Diff Path Review Platelet Estimate Polychromasia Hypochromasia Basophilic Stippling Anisocytosis Microcytosis Absolute Retic PT INR APTT Sodium Potassium Chloride Carbon Dioxide Anion Gap BUN Creatinine Estim Creat Clear Calc Est GFR (MDRD) Af Amer Est GFR (MDRD) Non-Af BUN/Creatinine Ratio Glucose Lactic Acid Calcium Phosphorus 3.0 Magnesium Total Bilirubin AST ALT Alkaline Phosphatase Total Protein Albumin Globulin Albumin/Globulin Ratio Urine Color Urine Clarity Urine pH Ur Specific [place] Urine Protein Urine Glucose (UA) Urine Ketones Urine Occult Blood Urine Nitrite Urine Bilirubin Urine Urobilinogen Ur Leukocyte Esterase Urine RBC Urine WBC Ur Squamous Epith Cells Amorphous Sediment Urine Bacteria Urine Mucus Blood Type Cancelled O NEGATIVE A1 Antigen Typing Cancelled Rho(D) Type Cancelled Antibody Screen NEGATIVE Crossmatch See Detail 10/12/18 10/12/18 05:56 05:56 WBC 9.7 Corrected WBC RBC 2.66 L Hgb 7.9 L Hct 24.5 L MCV 92.1 MCH 29.7 MCHC 32.2 RDW 18.9 H RDW Differential 58.3 H Plt Count 6 L* MPV Immature Gran % (Auto) 0.000 Neut % (Auto) 7.2 L Lymph % (Auto) 76.6 H [place] % (Auto) 15.8 H Eos % (Auto) 0.2 Baso % (Auto) 0.2 Absolute Neuts (auto) 0.7 L Absolute Lymphs (auto) 7.40 H Total Counted Not Reportable Neutrophils % (Manual) Lymphocytes % (Manual) Blast Cells % Nucleated RBC % 0.7 Differential Comment SCAN Diff Path Review May foll Platelet Estimate MKD DEC Polychromasia 1+ Hypochromasia 2+ Basophilic Stippling Anisocytosis 1+ Microcytosis 1+ Absolute Retic 0.07 PT INR APTT Sodium 141 Potassium 3.7 Chloride 107 Carbon Dioxide 26.0 Anion Gap 8 BUN 9 Creatinine 0.69 Estim Creat Clear Calc 41.97 Est GFR (MDRD) Af Amer 107 Est GFR (MDRD) Non-Af 88 BUN/Creatinine Ratio 13.1 Glucose 99 Lactic Acid Calcium 9.6 Phosphorus Magnesium Total Bilirubin AST ALT Alkaline Phosphatase Total Protein Albumin Globulin Albumin/Globulin Ratio Urine Color Urine Clarity Urine pH Ur Specific [place] Urine Protein Urine Glucose (UA) Urine Ketones Urine Occult Blood Urine Nitrite Urine Bilirubin Urine Urobilinogen Ur Leukocyte Esterase Urine RBC Urine WBC Ur Squamous Epith Cells Amorphous Sediment Urine Bacteria Urine Mucus Blood Type A1 Antigen Typing Rho(D) Type Antibody Screen Crossmatch Medical Necessity - Tobacco Use Smoking Status: Never smoker Tobacco Use: Non-smoker Assessment/Plan All Active Problems Neutropenic fever (Acute) Sepsis (Acute) Pancytopenia (Acute) Impressions 1. Sepsis/neutropenic fever secondary to PNA in an immunocompromised pt with AML who was on Levaquin as an OP 2. HCAP 3. AML - treated by Dr. Knapp 4. Severe thrombocytopenia 5. Anemia secondary to AML and chemotherapy 6. Hyponatremia-resolved 7. Suspected thrush 8. Hypertension 9. Obesity Continue meropenem and vancomycin Continue respiratory isolation Start Mycelex for suspected thrush Sputum and blood cultures ordered. Legionella and streptococcal antigens in the urine are negative. Obtain respiratory panel Recheck a CBC 2 hours after platelets have been transfused Recheck lab in the a.m. Regular diet per Dr. Knapp Transfuse platelets if less than 10,000 or active bleeding Transfuse packed red blood cells for hemoglobin less than 7.5 No Growth factors
[2018-10-12] MEDS: Clotrimazole 10 MG Troche MUCOUS MEM ×3 (14:07→21:08)
[2018-10-12] MEDS: DiphenhydrAMINE 50 MG/ML Syringe 25 MG IV (15:52)
[2018-10-12] MEDS: Acetaminophen 325 MG Tablet 650 MG PO (16:02)
[2018-10-12 19:24] LABS: Hematocrit 23.7 % (37-47); Hemoglobin 7.6 g/dl (12.0-15.0); Mean Corp Hgb Conc 32.1 g/gl (32-36); Mean Corpuscular Hgb 29.5 pg (27.0-32.0); Mean Corpuscular Volume 91.9 fL (81-99); RBC Distribution Width CV 19.1 % (11.6-14.6); RBC Distribution Width SD 59.3 fl (35.1-43.9); Red Blood Count 2.58 M/mm3 (4.2-5.4); White Blood Count 7.9 K/mm3 (4.4-11.0)
[2018-10-12 19:49] LABS: Platelet Count 7 K/mm3 (150-450)
[2018-10-12 19:50] LABS: Scan Indicated on CBC? Y/N YES- FLAGS NOTED
[2018-10-13] VITALS (10 sets, daily range): BP systolic 123–158; BP diastolic 61–88; PULSE 89–100; RESP 18–26; TEMP 36.4–37.5; O2SAT 94–96
[2018-10-13] MEDS: Clotrimazole 10 MG Troche MUCOUS MEM ×5 (06:32→21:51)
[2018-10-13 06:49] LABS: ALB/GLOB Ratio 0.7 RATIO (0.9-2.4); AST(SGOT) 20 U/L (15-37); Alanine Aminotransfer ALT/SGPT 18 U/L (13-56); Albumin, Serum 2.5 g/dL (3.2-5.0); Alkaline Phosphatase 107 U/L (45-117); Anion Gap 7 (5-15); BUN 7 mg/dL (7-18); BUN/Creat Ratio 11.1 RATIO (10-20); Calcium,Total 9.3 mg/dL (8.5-10.1); Chloride 107 mmol/L (98-107); Creatinine, Serum 0.63 mg/dL (0.55-1.02); EST Glomerular Filtration Rate 97 mL/min (>60); Est Glom Filt Rate - Afr Amer 118 mL/min (>60); Estimated Creatinine Clearance 41.97 ml/min; Globulin 3.8 g/dL (2.2-4.2); Glucose 105 mg/dL (74-106); Phosphorus 2.6 mg/dL (2.5-4.9); Potassium 3.6 mmol/L (3.5-5.1); Protein, Total 6.3 g/dL (6.4-8.2); Sodium Level 141 mmol/L (136-145)
[2018-10-13 07:49] LABS: Hematocrit 23.7 % (37-47); Hemoglobin 7.7 g/dl (12.0-15.0); Mean Corp Hgb Conc 32.5 g/gl (32-36); Mean Corpuscular Hgb 29.6 pg (27.0-32.0); Mean Corpuscular Volume 91.2 fL (81-99); RBC Distribution Width CV 18.9 % (11.6-14.6); RBC Distribution Width SD 58.4 fl (35.1-43.9); White Blood Count 9.6 K/mm3 (4.4-11.0)
[2018-10-13 07:50] LABS: Differential Indicated MANUAL DIFF; POSITIVE COUNT YES; POSITIVE DIFFERENTIAL NO; POSITIVE MORPHOLOGY YES
--- NOTE | 2018-10-13 07:50 | PN_ITS ---
Patient Problems: Active and Suspected Problems Neutropenic fever (Acute) Sepsis (Acute) Pancytopenia (Acute) Subjective: She has no complaint today. On broad-spectrum antibiotics without symptom or fever. She was transfused with 1 unit of blood and 1 unit platelet yesterday. She has no cough or shortness of breath. - Physical Exam General: Alert, Oriented x3 HEENT: Atraumatic, PERRLA, EOMI Oral: Moist Mucosa, No Gingival or Mucosal Lesions/ Ulcerations Neck: Supple, No JVD Lungs: Clear to auscultation Cardiovascular: Regular rate, Regular Rhythm, Normal S1, Normal S2, No murmurs Abdomen: Bowel Sounds Present, Soft, Non Tender, Non-Distended, No Hepato- splenomegaly Extremities: No clubbing, No cyanosis, No edema Skin: No rashes, No breakdown Lymphatic: No Cervical, Supraclavicular, or Inguinal Adenopathy Neurological: Neuro grossly intact Psych/Mental Status: Normal Affect Vital Signs Temp Pulse Resp BP Pulse Ox 98.4 F 99 18 155/77 H 94 10/13/18 03:05 10/13/18 03:05 10/13/18 03:05 10/13/18 03:05 10/13/18 03:05 Oxygen Flow Rate (L/min) 1 Oxygen Delivery Method Room Air Weight: 210 lb 8.663 oz Body Mass Index (BMI) 36.1 Intake and Output for Last 24 Hours 10/11/18 10/12/18 10/13/18 23:59 23:59 23:59 Intake Total 683 / 683 3111 / 3111 1950 / 1950 Output Total 150 / 150 2350 / 2350 Balance 683 / 683 2961 / 2961 -399 / -399 Microbiology Past 72 Hours 10/12/18 21:20 Gram Stain - Preliminary Sputum, Expectorated/Coughed 10/11/18 19:30 Legionella Antigen - Final Urine, Clean Catch 10/11/18 19:30 Streptococcus pneumoniae Antigen (M - Final Urine, Clean Catch Laboratory Tests Past 24 Hrs 10/12/18 10/13/18 10/13/18 18:48 06:00 06:00 WBC 7.9 Pending RBC 2.58 L Pending Hgb 7.6 L Pending Hct 23.7 L Pending MCV 91.9 Pending MCH 29.5 Pending MCHC 32.1 Pending RDW 19.1 H Pending RDW Differential 59.3 H Pending Plt Count 7 L* Pending MPV TNP Neut % (Auto) Pending Absolute Neuts (auto) Pending Total Counted Pending Sodium 141 Potassium 3.6 Chloride 107 Carbon Dioxide 27.0 Anion Gap 7 BUN 7 Creatinine 0.63 Estim Creat Clear Calc 41.97 Est GFR (MDRD) Af Amer 118 Est GFR (MDRD) Non-Af 97 BUN/Creatinine Ratio 11.1 Glucose 105 Calcium 9.3 Phosphorus 2.6 Magnesium 2.0 Total Bilirubin 1.10 H AST 20 ALT 18 Alkaline Phosphatase 107 Total Protein 6.3 L Albumin 2.5 L Globulin 3.8 Albumin/Globulin Ratio 0.7 L Medical Necessity - Tobacco Use Smoking Status: Never smoker Tobacco Use: Non-smoker Assessment/Plan All Active Problems Neutropenic fever (Acute) Sepsis (Acute) Pancytopenia (Acute) ASSESSMENT/PLAN: 1) Neutropenic fever. Assessment: -Patient developed fever while on Levaquin with no other symptoms--cough is infrequent, chronic and unchanged. -Subjectively feeling better on broader spectrum antibiotics & remain afebrile Plan: -Continue meropenem and vancomycin for now - pending blood culture 2) LLL infiltrate. Assessment: -CT images reviewed. Rather dense and large infiltrate LLL. -May be evolving fungal pneumonia, but I would expect her symptoms to be much more pronounced. -She appears to be responding to broader spec antibiotics as noted above. Plan: -Follow up CT chest with IV contrast in several days if continues to remain afebrile and blood cultures do not indicate more urgent need for CT. -Possible fungal infection? 3) Pancytopenia. Assessment: -Secondary to AML. -No bleeding issues. -Does not need irradiated blood products. Plan: -Transfuse 1 unit platelets for plt count <10K. -Transfuse RBCs for Hgb <7-7.5 g/dL pending symptoms. 4) AML. Assessment: -Blast count remains significantly high following 2 cycles of Vidaza. Plan: -Further therapy will depend on outcome of problems above. Additional CC's: Shannan Leggett; Stephane Knapp
[2018-10-13 07:51] LABS: Platelet Count 8 K/mm3 (150-450)
[2018-10-13 07:52] LABS: Absolute Nucleated RBC Count 0.08 10^3/uL (0-5); NRBC Flagged by Analyzer 0.8 % (0-5)
[2018-10-13 09:07] LABS: Blast 13 % (0-0); Lymphocyte 82 % (19-41); Monocyte 3 % (0-10); Myelocyte 1 (0-0); Neutrophil-Segmented 1 % (47-70); Platelet Estimate MKD DEC (ADEQ); Red Cell Morphology NORM C+C NORMAL (NORM C&C); Total Cells Counted 100 (MANUAL DIFF)
[2018-10-13 09:08] LABS: Absolute Neutrophil Count 0.1 X10^3/uL (2.0-7.7)
[2018-10-13 09:09] LABS: Absolute Lymphocyte Count 7.87 X10^3/ul (0.83-4.51); Lymphocyte # 7.87 X10^3/ul (4.0)
[2018-10-13] MEDS: 0.9% Normal Saline 1,000 ML 125 ML IV ×2 (10:19→21:45)
[2018-10-13] MEDS: Famotidine 20 MG Tablet PO ×2 (10:20→21:51)
[2018-10-13] MEDS: Acyclovir 200 MG Capsule 400 MG PO ×2 (10:20→21:51)
--- NOTE | 2018-10-13 10:35 | CASEMGMT ---
RN JADA Face to Face with patient for initial transition planning/care coordination assessment. RN CM introduced self and role at [facility]. Patient sitting in chair, alert and oriented. Patient willing to participate in assessment and is able to answer all questions appropriately. Care providers, pharmacy, and demographics verified. Patient wishes to discharge home, denies need for home health at this time. Patient states she has no further needs or concerns at this time. CM to follow for discharge planning needs that may arise. PCP: Ra Specialists: None Preferred Pharmacy: [facility] Insurance: [employer] Prescription Benefit: [employer] Living Will/HPOA: None LNOK: Daughter and Son in law Living Arrangements: Patient lives in 3 story home with daughter and son in law. 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 DME/HHC: Denies need for DME Disposition Plan: Patient to discharge home with famliy support and follow-up plans in place. Maggy HARRIS, RN, CM
[2018-10-13 11:53] LABS: Pathologist Review Reviewed
[2018-10-13 11:56] LABS: Pathologist Review Reviewed
[2018-10-13 11:57] LABS: Pathologist Review Reviewed
--- NOTE | 2018-10-13 15:43 | PCM.PN.HOSP ---
Patient Problems: Active and Suspected Problems Neutropenic fever (Acute) Sepsis (Acute) Pancytopenia (Acute) Subjective: Patient seen and examined. Feels well has no complaints. Daughter was by bedside. She denies any fever chills, cough or chest pain, shortness of breath, abdominal pain, diarrhea vomiting. Review of systems otherwise negative. Labs and vitals reviewed. Temperature settled today she is been afebrile. She has been tachypneic though with respiratory rate peaking at 26. Platelets only 8 today and she is receiving platelet transfusion. Vitals/I&O's: Vital Signs Temp Pulse Resp BP Pulse Ox 98.3 F 97 26 H 141/68 H 96 10/13/18 14:45 10/13/18 14:45 10/13/18 14:45 10/13/18 14:45 10/13/18 14:45 Oxygen Flow Rate (L/min) 1 Oxygen Delivery Method Room Air Weight: 210 lb 8.663 oz Body Mass Index (BMI) 36.1 Intake and Output for Last 24 Hours 10/11/18 10/12/18 10/13/18 23:59 23:59 23:59 Intake Total 683 / 683 3111 / 3111 2451 / 2451 Output Total 150 / 150 3250 / 3250 Balance 683 / 683 2961 / 2961 -799 / -799 General: Alert, Oriented x3, Cooperative, No apparent distress HEENT: Atraumatic, PERRLA, EOMI, Normocephalic Oral: Moist Mucosa Neck: Supple, No JVD, Negative Carotid Bruits Lungs: Clear to auscultation, Normal air movement, No rhonchi, No wheeze, No rales, Tachypneic Cardiovascular: Regular rate, Regular Rhythm, Normal S1, Normal S2, No murmurs Abdomen: Bowel Sounds Present, Soft, Non Tender Extremities: No clubbing, No cyanosis, No edema, Capillary Refill Less than 3 Seconds Skin: No rashes, No breakdown Musculoskeletal: No Tenderness to Palpation of Joints or Extremities Lymphatic: No Cervical, Supraclavicular, or Inguinal Adenopathy Neurological: Cranial nerves II-XII grossly intact, Neuro grossly intact, Motor Exam 5/5 strength throughout Psych/Mental Status: Normal Affect, Appropriate, Alert and oriented to time, place, person, mood and affect Microbiology Past 72 Hours 10/12/18 21:20 Sputum, Expectorated/Coughed Gram Stain - Final 10/11/18 19:30 Urine, Clean Catch Urine Culture - Preliminary Mixed Gram Positive Organisms 10/11/18 19:30 Urine, Clean Catch Urine Culture - Preliminary Mixed Gram Positive Organisms 10/11/18 19:30 Urine, Clean Catch Legionella Antigen - Final 10/11/18 19:30 Urine, Clean Catch Streptococcus pneumoniae Antigen (M - Final Laboratory Results 10/11/18 18:50: Diff Path Review Reviewed 10/12/18 05:56: Diff Path Review Reviewed 10/12/18 18:48: WBC 7.9, RBC 2.58 L, Hgb 7.6 L, Hct 23.7 L, MCV 91.9, MCH 29.5, MCHC 32.1, RDW 19.1 H, RDW Differential 59.3 H, Plt Count 7 L*, MPV TNP 10/13/18 06:00: WBC 9.6, RBC 2.60 L, Hgb 7.7 L, Hct 23.7 L, MCV 91.2, MCH 29.6, MCHC 32.5, RDW 18.9 H, RDW Differential 58.4 H, Plt Count 8 L*, Neut % (Auto) Not Reportable, Absolute Neuts (auto) 0.1 L, Absolute Lymphs (auto) 7.87 H, Total Counted 100, Neutrophils % (Manual) 1 L, Lymphocytes % (Manual) 82 H*, Monocytes % (Manual) 3, Myelocytes % 1 H, Blast Cells % 13 H*, Nucleated RBC % 0.8, Diff Path Review Reviewed, Platelet Estimate MKD DEC, RBC Morphology NORM C+C, Absolute Retic 0.08 10/13/18 06:00: Sodium 141, Potassium 3.6, Chloride 107, Carbon Dioxide 27.0, Anion Gap 7, BUN 7, Creatinine 0.63, Estim Creat Clear Calc 41.97, Est GFR (MDRD) Af Amer 118, Est GFR (MDRD) Non-Af 97, BUN/Creatinine Ratio 11.1, Glucose 105, Calcium 9.3, Phosphorus 2.6, Magnesium 2.0, Total Bilirubin 1.10 H, AST 20, ALT 18, Alkaline Phosphatase 107, Total Protein 6.3 L, Albumin 2.5 L, Globulin 3.8, Albumin/Globulin Ratio 0.7 L Diagnostic Data Abdomen/Pelvis CT 10/11/18 18:38 IMPRESSION: Large consolidation of the left lower lobe. Smaller infiltrate of the medial right lower lobe. Negative for pleural effusion. No acute abdominal findings. Elongated right liver lobe typical of a Hai's lobe. Mild splenomegaly. Normal gallbladder and pancreas. Normal size of the kidneys bilaterally without hydronephrosis or ureteral stones. One nonobstructing cortical calcification of the left kidney. Renal cysts. Negative for evidence of bowel obstruction, perforation or inflammatory bowel changes. Diverticulosis without evidence of acute diverticulitis. Negative for pelvic mass or free fluid of the pelvis. Electronically Signed: Beena Skaggs MD at 20:48 EST , Service support , Chest X-Ray 10/11/18 19:45 IMPRESSION: Focal density in the posterior left base primarily on the lateral view. This is consistent with atelectasis infiltrate or mass. CT of the chest with contrast is recommended. Electronically Signed: Ramos Mccoy MD at 21:03 EST , Service support , Current Medications Acetaminophen (Tylenol) 650 mg PO Q4H PRN PRN PRN Reason: FEVER Last Admin: 10/12/18 16:02 Dose: 650 mg Hydrocodone Bitart/Acetaminophen ([place] 5mg-325mg) 1 - 2 tablet PO Q6H PRN PRN PRN Reason: Moderate-severe pain Acyclovir (Zovirax) 400 mg PO BID [facility] Last Admin: 10/13/18 10:20 Dose: 400 mg Al Hydroxide/Mg Hydroxide (Mylanta Ii) 30 ml PO Q6H PRN PRN PRN Reason: Gastric burning Albuterol Sulfate (Ventolin Aerosols) 2.5 mg INHALATION Q2H PRN PRN PRN Reason: SHORTNESS OF BREATH Clotrimazole (Mycelex) 10 mg MUCOUS MEM 5X/DAY [facility] Last Admin: 10/13/18 14:47 Dose: 10 mg Diphenhydramine HCl (Benadryl) 25 mg IV X1 PRN Last Admin: 10/12/18 15:52 Dose: 25 mg Famotidine (Pepcid) 20 mg PO BID [facility] Last Admin: 10/13/18 10:20 Dose: 20 mg Hydralazine HCl (Apresoline Iv) 10 mg IV Q4H PRN PRN PRN Reason: SBP > 160 Sodium Chloride () 1,000 mls @ 125 mls/hr IV .Q8H [facility] Last Admin: 10/13/18 10:19 Dose: 125 mls/hr Meropenem 500 mg/ Sodium (Chloride) 60 mls @ 100 mls/hr IV Q6 [facility] Last Admin: 10/13/18 14:46 Dose: 100 mls/hr Vancomycin IV Pharmacy to Dose (1 ea/ Sodium Chloride) 500 mls @ 250 mls/hr IV X1 PRN; Protocol PRN Reason: Rx to Dose Sodium Chloride () 250 mls @ 15 mls/hr IV .[id number] PRN PRN Reason: SALINE FLUSH Vancomycin HCl 1,250 mg/ (Sodium Chloride) 275 mls @ 167 mls/hr IV Q24H [facility] Last Admin: 10/12/18 20:48 Dose: 167 mls/hr Magnesium Hydroxide (Milk Of Magnesia) 30 ml PO DAILY PRN PRN PRN Reason: Constipation Morphine Sulfate () 1 - 2 mg IV Q4H PRN PRN PRN Reason: PAIN Nutritional Formula (Lactose Free) (Ensure Clear) 120 ml PO 4X/DAY [facility] Last Admin: 10/13/18 14:46 Dose: Not Given Ondansetron HCl (Zofran) 4 mg IV Q8H PRN PRN PRN Reason: NAUSEA Promethazine HCl (Phenergan) 12.5 mg IV Q6H PRN PRN PRN Reason: NAUSEA/VOMITING Sodium Chloride () 5 - 30 ml IV UD PRN PRN Reason: SALINE FLUSH Medical Necessity - Tobacco Use Smoking Status: Never smoker Tobacco Use: Non-smoker Assessment/Plan All Active Problems Neutropenic fever (Acute) Sepsis (Acute) Pancytopenia (Acute) 1. 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 However she remains tachypneic. Legionella and streptococcal pneumonia antigens in the urine were negative. Chest CT scan showed large large left lower lobe infiltrate. On IV meropenem and vancomycin neutropenic precautions urine cultured mixed, positive organisms. Blood cultures are pending. Sputum Gram stain showed 3+ gram-positive cocci, 4+ gram-positive rods and 1+ white blood cell count. Respiratory cultures pending. 2. Health associated pneumonia: as under 1. on breathing treatments 3. 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 Receiving platelet transfusion check CBC 2 hours after platelet transfusion transfuse PRBC if Hb is <7.5; doesnt need irradiated blood, per oncology oncology on board 4. Hyponatremia: resolved. Na is now 141 DVT prophylaxis: SCDs GI prophylaxis: famotidine. Code Visit Inpatient E&M: 27655 Subs Hosp L3
--- NOTE | 2018-10-13 15:51 | PN_ITS ---
Patient Problems: Active and Suspected Problems Neutropenic fever (Acute) Sepsis (Acute) Pancytopenia (Acute) Subjective: Patient seen and examined. Feels well has no complaints. Daughter was by bedside. She denies any fever chills, cough or chest pain, shortness of breath, abdominal pain, diarrhea vomiting. Review of systems otherwise negative. Labs and vitals reviewed. Temperature settled today she is been afebrile. She has been tachypneic though with respiratory rate peaking at 26. Platelets only 8 today and she is receiving platelet transfusion. Vitals/I&O's: Vital Signs Temp Pulse Resp BP Pulse Ox 98.3 F 97 26 H 141/68 H 96 10/13/18 14:45 10/13/18 14:45 10/13/18 14:45 10/13/18 14:45 10/13/18 14:45 Oxygen Flow Rate (L/min) 1 Oxygen Delivery Method Room Air Weight: 210 lb 8.663 oz Body Mass Index (BMI) 36.1 Intake and Output for Last 24 Hours 10/11/18 10/12/18 10/13/18 23:59 23:59 23:59 Intake Total 683 / 683 3111 / 3111 2451 / 2451 Output Total 150 / 150 3250 / 3250 Balance 683 / 683 2961 / 2961 -799 / -799 General: Alert, Oriented x3, Cooperative, No apparent distress HEENT: Atraumatic, PERRLA, EOMI, Normocephalic Oral: Moist Mucosa Neck: Supple, No JVD, Negative Carotid Bruits Lungs: Clear to auscultation, Normal air movement, No rhonchi, No wheeze, No rales, Tachypneic Cardiovascular: Regular rate, Regular Rhythm, Normal S1, Normal S2, No murmurs Abdomen: Bowel Sounds Present, Soft, Non Tender Extremities: No clubbing, No cyanosis, No edema, Capillary Refill Less than 3 Seconds Skin: No rashes, No breakdown Musculoskeletal: No Tenderness to Palpation of Joints or Extremities Lymphatic: No Cervical, Supraclavicular, or Inguinal Adenopathy Neurological: Cranial nerves II-XII grossly intact, Neuro grossly intact, Motor Exam 5/5 strength throughout Psych/Mental Status: Normal Affect, Appropriate, Alert and oriented to time, place, person, mood and affect Microbiology Past 72 Hours 10/12/18 21:20 Sputum, Expectorated/Coughed Gram Stain - Final 10/11/18 19:30 Urine, Clean Catch Urine Culture - Preliminary Mixed Gram Positive Organisms 10/11/18 19:30 Urine, Clean Catch Urine Culture - Preliminary Mixed Gram Positive Organisms 10/11/18 19:30 Urine, Clean Catch Legionella Antigen - Final 10/11/18 19:30 Urine, Clean Catch Streptococcus pneumoniae Antigen (M - Final Laboratory Results 10/11/18 18:50: Diff Path Review Reviewed 10/12/18 05:56: Diff Path Review Reviewed 10/12/18 18:48: WBC 7.9, RBC 2.58 L, Hgb 7.6 L, Hct 23.7 L, MCV 91.9, MCH 29.5, MCHC 32.1, RDW 19.1 H, RDW Differential 59.3 H, Plt Count 7 L*, MPV TNP 10/13/18 06:00: WBC 9.6, RBC 2.60 L, Hgb 7.7 L, Hct 23.7 L, MCV 91.2, MCH 29.6, MCHC 32.5, RDW 18.9 H, RDW Differential 58.4 H, Plt Count 8 L*, Neut % (Auto) Not Reportable, Absolute Neuts (auto) 0.1 L, Absolute Lymphs (auto) 7.87 H, Total Counted 100, Neutrophils % (Manual) 1 L, Lymphocytes % (Manual) 82 H*, Monocytes % (Manual) 3, Myelocytes % 1 H, Blast Cells % 13 H*, Nucleated RBC % 0.8, Diff Path Review Reviewed, Platelet Estimate MKD DEC, RBC Morphology NORM C+C, Absolute Retic 0.08 10/13/18 06:00: Sodium 141, Potassium 3.6, Chloride 107, Carbon Dioxide 27.0, Anion Gap 7, BUN 7, Creatinine 0.63, Estim Creat Clear Calc 41.97, Est GFR (MDRD) Af Amer 118, Est GFR (MDRD) Non-Af 97, BUN/Creatinine Ratio 11.1, Glucose 105, Calcium 9.3, Phosphorus 2.6, Magnesium 2.0, Total Bilirubin 1.10 H, AST 20, ALT 18, Alkaline Phosphatase 107, Total Protein 6.3 L, Albumin 2.5 L, Globulin 3.8, Albumin/Globulin Ratio 0.7 L Diagnostic Data Abdomen/Pelvis CT 10/11/18 18:38 IMPRESSION: Large consolidation of the left lower lobe. Smaller infiltrate of the medial right lower lobe. Negative for pleural effusion. No acute abdominal findings. Elongated right liver lobe typical of a Hai's lobe. Mild splenomegaly. Normal gallbladder and pancreas. Normal size of the kidneys bilaterally without hydronephrosis or ureteral stones. One nonobstructing cortical calcification of the left kidney. Renal cysts. Negative for evidence of bowel obstruction, perforation or inflammatory bowel changes. Diverticulosis without evidence of acute diverticulitis. Negative for pelvic mass or free fluid of the pelvis. Electronically Signed: Beena Skaggs MD at 20:48 EST , Service support , Chest X-Ray 10/11/18 19:45 IMPRESSION: Focal density in the posterior left base primarily on the lateral view. This is consistent with atelectasis infiltrate or mass. CT of the chest with contrast is recommended. Electronically Signed: Ramos Mccoy MD at 21:03 EST , Service support , Current Medications Acetaminophen (Tylenol) 650 mg PO Q4H PRN PRN PRN Reason: FEVER Last Admin: 10/12/18 16:02 Dose: 650 mg Hydrocodone Bitart/Acetaminophen ([place] 5mg-325mg) 1 - 2 tablet PO Q6H PRN PRN PRN Reason: Moderate-severe pain Acyclovir (Zovirax) 400 mg PO BID [facility] Last Admin: 10/13/18 10:20 Dose: 400 mg Al Hydroxide/Mg Hydroxide (Mylanta Ii) 30 ml PO Q6H PRN PRN PRN Reason: Gastric burning Albuterol Sulfate (Ventolin Aerosols) 2.5 mg INHALATION Q2H PRN PRN PRN Reason: SHORTNESS OF BREATH Clotrimazole (Mycelex) 10 mg MUCOUS MEM 5X/DAY [facility] Last Admin: 10/13/18 14:47 Dose: 10 mg Diphenhydramine HCl (Benadryl) 25 mg IV X1 PRN Last Admin: 10/12/18 15:52 Dose: 25 mg Famotidine (Pepcid) 20 mg PO BID [facility] Last Admin: 10/13/18 10:20 Dose: 20 mg Hydralazine HCl (Apresoline Iv) 10 mg IV Q4H PRN PRN PRN Reason: SBP > 160 Sodium Chloride () 1,000 mls @ 125 mls/hr IV .Q8H [facility] Last Admin: 10/13/18 10:19 Dose: 125 mls/hr Meropenem 500 mg/ Sodium (Chloride) 60 mls @ 100 mls/hr IV Q6 [facility] Last Admin: 10/13/18 14:46 Dose: 100 mls/hr Vancomycin IV Pharmacy to Dose (1 ea/ Sodium Chloride) 500 mls @ 250 mls/hr IV X1 PRN; Protocol PRN Reason: Rx to Dose Sodium Chloride () 250 mls @ 15 mls/hr IV .[id number] PRN PRN Reason: SALINE FLUSH Vancomycin HCl 1,250 mg/ (Sodium Chloride) 275 mls @ 167 mls/hr IV Q24H [facility] Last Admin: 10/12/18 20:48 Dose: 167 mls/hr Magnesium Hydroxide (Milk Of Magnesia) 30 ml PO DAILY PRN PRN PRN Reason: Constipation Morphine Sulfate () 1 - 2 mg IV Q4H PRN PRN PRN Reason: PAIN Nutritional Formula (Lactose Free) (Ensure Clear) 120 ml PO 4X/DAY [facility] Last Admin: 10/13/18 14:46 Dose: Not Given Ondansetron HCl (Zofran) 4 mg IV Q8H PRN PRN PRN Reason: NAUSEA Promethazine HCl (Phenergan) 12.5 mg IV Q6H PRN PRN PRN Reason: NAUSEA/VOMITING Sodium Chloride () 5 - 30 ml IV UD PRN PRN Reason: SALINE FLUSH Medical Necessity - Tobacco Use Smoking Status: Never smoker Tobacco Use: Non-smoker Assessment/Plan All Active Problems Neutropenic fever (Acute) Sepsis (Acute) Pancytopenia (Acute) 1. 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 However she remains tachypneic. * Legionella and streptococcal pneumonia antigens in the urine were negative. * Chest CT scan showed large large left lower lobe infiltrate. * On IV meropenem and vancomycin * neutropenic precautions * urine cultured mixed, positive organisms. Blood cultures are pending. * Sputum Gram stain showed 3+ gram-positive cocci, 4+ gram-positive rods and 1+ white blood cell count. Respiratory cultures pending. 2. Health associated pneumonia: as under 1. on breathing treatments 3. Pancytopenia: * due to AML * platelets asre 8 today. Receiving platelet transfusion * check CBC 2 hours after platelet transfusion * transfuse PRBC if Hb is <7.5; doesnt need irradiated blood, per oncology * oncology on board * 4. Hyponatremia: resolved. Na is now 141 DVT prophylaxis: SCDs GI prophylaxis: famotidine. Code Visit Inpatient E&M: [id number] Subs Hosp L3
[2018-10-13 21:09] LABS: Vancomycin, Trough Level 4.3 ug/mL (5.0-15.0)
[2018-10-14] VITALS (7 sets, daily range): BP systolic 136–178; BP diastolic 70–93; PULSE 93–102; RESP 16–20; TEMP 36.6–37.6; O2SAT 93–97
--- NOTE | 2018-10-14 03:26 | PCM.RX.CS ---
Consult Pharmacy has been consulted to manage selected antiobiotic: Vancomycin Type of Consult: Follow-up Suspected Infection: Sepsis Labs: Sodium 141 mmol/L (136-145) 10/13/18 06:00 Potassium 3.6 mmol/L (3.5-5.1) 10/13/18 06:00 Chloride 107 mmol/L (98-107) 10/13/18 06:00 Carbon Dioxide 27.0 mmol/L (21.0-32.0) 10/13/18 06:00 Anion Gap 7 (5-15) 10/13/18 06:00 BUN 7 mg/dL (7-18) 10/13/18 06:00 Creatinine 0.63 mg/dL (0.55-1.02) 10/13/18 06:00 Est GFR (MDRD) Af Amer 118 mL/min (>60) 10/13/18 06:00 Est GFR (MDRD) Non-Af 97 mL/min (>60) 10/13/18 06:00 BUN/Creatinine Ratio 11.1 RATIO (10-20) 10/13/18 06:00 Glucose 105 mg/dL (74-106) 10/13/18 06:00 Vancomycin Trough 4.3 ug/mL (5.0-15.0) L 10/13/18 20:16 Microbiology: Microbiology 10/12/18 21:20 Sputum, Expectorated/Coughed Gram Stain - Final 10/11/18 19:30 Urine, Clean Catch Urine Culture - Preliminary Mixed Gram Positive Organisms 10/11/18 19:30 Urine, Clean Catch Urine Culture - Preliminary Mixed Gram Positive Organisms 10/11/18 19:30 Urine, Clean Catch Legionella Antigen - Final 10/11/18 19:30 Urine, Clean Catch Streptococcus pneumoniae Antigen (M - Final Estimated Creatinine Clearance: 41.97 Goal Trough: 10-15 mcg/mL Pharmacy Plan for Drug Dosing: Pharmacy Service will continue to monitor and adjust dosing as required. Medications Vancomycin HCl 1,500 mg/ (Sodium Chloride) 530 mls @ 250 mls/hr IV Q12H JOHANNY TROUGH 4.3 DOSE ADJUSTED TO 1500 Q12H REPEAT TROUGH 10/15 Follow-Up Labs: Trough Vancomycin Labs to be done on [date and time ordered]: 10/15
[2018-10-14] MEDS: Clotrimazole 10 MG Troche MUCOUS MEM ×5 (05:48→20:21)
[2018-10-14 07:40] LABS: Anion Gap 6 (5-15); BUN 9 mg/dL (7-18); BUN/Creat Ratio 13.5 RATIO (10-20); Calcium,Total 9.7 mg/dL (8.5-10.1); Chloride 107 mmol/L (98-107); Creatinine, Serum 0.66 mg/dL (0.55-1.02); EST Glomerular Filtration Rate 92 mL/min (>60); Est Glom Filt Rate - Afr Amer 111 mL/min (>60); Estimated Creatinine Clearance 41.97 ml/min; Glucose 109 mg/dL (74-106); Potassium 3.6 mmol/L (3.5-5.1); Sodium Level 140 mmol/L (136-145)
[2018-10-14] MEDS: 0.9% Normal Saline 1,000 ML 125 ML IV (08:35)
[2018-10-14] MEDS: Acyclovir 200 MG Capsule 400 MG PO ×2 (08:37→20:21)
[2018-10-14] MEDS: Famotidine 20 MG Tablet PO ×2 (08:37→20:21)
[2018-10-14 08:55] LABS: Hematocrit 26.8 % (37-47); Hemoglobin 8.6 g/dl (12.0-15.0); Mean Corp Hgb Conc 32.1 g/gl (32-36); Mean Corpuscular Hgb 30.5 pg (27.0-32.0); RBC Distribution Width SD 58.9 fl (35.1-43.9); Red Blood Count 2.82 M/mm3 (4.2-5.4); White Blood Count 8.5 K/mm3 (4.4-11.0)
[2018-10-14 08:56] LABS: POSITIVE COUNT YES; POSITIVE DIFFERENTIAL NO; POSITIVE MORPHOLOGY YES
[2018-10-14 08:58] LABS: Platelet Count 8 K/mm3 (150-450)
--- NOTE | 2018-10-14 09:02 | RAD_ITS ---
STUDY: X-RAY CHEST REASON FOR EXAM: Female, 73 years old. Cough. TECHNIQUE: PA and lateral views of the chest. COMPARISON: Comparison is made with prior study dated the 2017. FINDINGS: Stable left lower lobe infiltration with some blunting of left costophrenic angle. Blunting of the right cuspid angle. Normal size heart. Normal mediastinum and william. Normal visualized pulmonary arteries. Normal visualized aortic arch and descending thoracic aorta. There are diffuse degenerative changes of the visualized thoracic spine. Increased kyphosis. There is degenerative osteoarthritis of the bilateral shoulders. There is no demonstrated abnormality of the visualized soft tissue structures of the upper abdomen. RAD/Chest PA and Lateral IMPRESSION: Stable infiltrate in the left lower lobe with small left pleural effusion. Blunting of the right costophrenic angle. Electronically Signed: Bobby Birmingham MD at 15:04 EST Tel [phone], Service support ,
--- NOTE | 2018-10-14 09:13 | PN_ITS ---
Patient Problems: Active and Suspected Problems Neutropenic fever (Acute) Sepsis (Acute) Pancytopenia (Acute) Subjective: She is feeling much better today. Productive cough but no shortness of breath. Denied bleeding or hemoptysis. She had a platelet transfusion yesterday morning. She has been afebrile since admission on broad-spectrum antibiotic. - Physical Exam General: Alert, Oriented x3, No apparent distress HEENT: Atraumatic, PERRLA, EOMI Oral: Moist Mucosa, No Gingival or Mucosal Lesions/ Ulcerations Neck: Supple, No JVD Lungs: Clear to auscultation, Normal air movement, No rhonchi, No wheeze Cardiovascular: Regular rate, Regular Rhythm, Normal S1, Normal S2 Abdomen: Bowel Sounds Present, Soft, Non Tender, No Hepato-splenomegaly Extremities: No clubbing, No cyanosis, No edema Skin: No rashes, No breakdown Lymphatic: No Cervical, Supraclavicular, or Inguinal Adenopathy Neurological: Neuro grossly intact Psych/Mental Status: Normal Affect Vital Signs Temp Pulse Resp BP Pulse Ox 99 F 93 16 147/75 H 93 10/14/18 08:18 10/14/18 08:18 10/14/18 08:18 10/14/18 08:18 10/14/18 08:18 Oxygen Flow Rate (L/min) 1 Oxygen Delivery Method Room Air Weight: 210 lb 8.663 oz Body Mass Index (BMI) 36.1 Intake and Output for Last 24 Hours 10/12/18 10/13/18 10/14/18 23:59 23:59 23:59 Intake Total 3111 / 3111 3891 / 3891 1920 / 1920 Output Total 150 / 150 4050 / 4050 3000 / 3000 Balance 2961 / 2961 -159 / -159 -1080 / -1080 Microbiology Past 72 Hours 10/11/18 19:30 Urine Culture - Preliminary Urine, Clean Catch Gram positive organism 10/12/18 21:20 Gram Stain - Final Sputum, Expectorated/Coughed 10/11/18 19:30 Urine Culture - Preliminary Urine, Clean Catch Mixed Gram Positive Organisms 10/11/18 19:30 Legionella Antigen - Final Urine, Clean Catch 10/11/18 19:30 Streptococcus pneumoniae Antigen (M - Final Urine, Clean Catch Laboratory Tests Past 24 Hrs 10/11/18 10/12/18 10/13/18 18:50 05:56 06:00 WBC RBC Hgb Hct MCV MCH MCHC RDW RDW Differential Plt Count Immature Gran % (Auto) Neut % (Auto) Lymph % (Auto) [place] % (Auto) Eos % (Auto) Baso % (Auto) Absolute Neuts (auto) 0.1 L Absolute Lymphs (auto) 7.87 H Total Counted 100 Neutrophils % (Manual) 1 L Lymphocytes % (Manual) 82 H* Monocytes % (Manual) 3 Myelocytes % 1 H Blast Cells % 13 H* Diff Path Review Reviewed Reviewed Reviewed Platelet Estimate MKD DEC RBC Morphology NORM C+C Sodium Potassium Chloride Carbon Dioxide Anion Gap BUN Creatinine Estim Creat Clear Calc Est GFR (MDRD) Af Amer Est GFR (MDRD) Non-Af BUN/Creatinine Ratio Glucose Calcium Vancomycin Trough 10/13/18 10/14/18 10/14/18 20:16 07:00 07:00 WBC 8.5 RBC 2.82 L Hgb 8.6 L Hct 26.8 L MCV 95.0 MCH 30.5 MCHC 32.1 RDW 19.0 H RDW Differential 58.9 H Plt Count 8 L* Immature Gran % (Auto) 0.000 Neut % (Auto) 5.5 L Lymph % (Auto) 77.8 H [place] % (Auto) 16.1 H Eos % (Auto) 0.4 Baso % (Auto) 0.2 Absolute Neuts (auto) 0.5 L Absolute Lymphs (auto) 6.63 H Total Counted Pending Neutrophils % (Manual) Lymphocytes % (Manual) Monocytes % (Manual) Myelocytes % Blast Cells % Diff Path Review Platelet Estimate RBC Morphology Sodium 140 Potassium 3.6 Chloride 107 Carbon Dioxide 27.0 Anion Gap 6 BUN 9 Creatinine 0.66 Estim Creat Clear Calc 41.97 Est GFR (MDRD) Af Amer 111 Est GFR (MDRD) Non-Af 92 BUN/Creatinine Ratio 13.5 Glucose 109 H Calcium 9.7 Vancomycin Trough 4.3 L Medical Necessity - Tobacco Use Smoking Status: Never smoker Tobacco Use: Non-smoker Assessment/Plan All Active Problems Neutropenic fever (Acute) Sepsis (Acute) Pancytopenia (Acute) ASSESSMENT/PLAN: 1) Neutropenic fever. Assessment: -Patient developed fever while on Levaquin with no other symptoms--cough is infrequent, chronic and unchanged. -Subjectively feeling better on broader spectrum antibiotics & remain afebrile Plan: -Continue meropenem and vancomycin & stop antibiotics if blood cultures are negative. 2) LLL infiltrate. Assessment: -CT images reviewed. Rather dense and large infiltrate LLL. -May be evolving fungal pneumonia, but I would expect her symptoms to be much more pronounced. -She appears to be responding to broader spec antibiotics as noted above. Plan: -Chest x-ray today; if improving or stable then -Discharge home on Levaquin, and 7 days course of Augmentin 875mg BID for treatment of LLL pneumonia 3) Pancytopenia. Assessment: -Secondary to AML. -No bleeding issues. -Does not need irradiated blood products. Plan: -Transfuse 1 unit phoresis platelets for plt count <10K (tomorrow before discharge home) -Transfuse RBCs for Hgb <7-7.5 g/dL pending symptoms. 4) AML. Assessment: -Blast count remains significantly elevated following 2 cycles of Vidaza. Plan: -Further therapy will depend on outcome of problems above. -Follow-up with Dr. Knapp next week in office. Additional CC's: Shannan Leggett; Stephane Knapp
[2018-10-14 10:02] LABS: Differential Indicated MANUAL DIFF
[2018-10-14 10:09] LABS: Blast 63 % (0-0); Lymphocyte 36 % (19-41); Neutrophil-Segmented 1 % (47-70); Platelet Estimate MKD DEC (ADEQ); Total Cells Counted 100 (MANUAL DIFF)
[2018-10-14 10:10] LABS: Red Cell Morphology NORM C+C NORMAL (NORM C&C)
[2018-10-14 10:12] LABS: Absolute Neutrophil Count 0.1 X10^3/uL (2.0-7.7)
[2018-10-14 10:13] LABS: Absolute Lymphocyte Count 3.06 X10^3/ul (0.83-4.51)
[2018-10-14 12:12] LABS: Pathologist Review Reviewed
[2018-10-14] MEDS: 0.9% NaCl Peripheral Flush Adult/Peds IV ×2 (12:51→18:06)
[2018-10-14] MEDS: Amox/Clavulanate 875 MG Tablet PO (18:05)
[2018-10-14] MEDS: levoFLOXacin 500 MG Tablet PO (18:05)
--- NOTE | 2018-10-14 19:08 | PCM.PROGNOTE ---
Patient Problems: Active and Suspected Problems Neutropenic fever (Acute) Sepsis (Acute) Pancytopenia (Acute) Subjective: Patient was seen and examined today, her blood cultures so far have been negative, her platelet count today was 8000, I talked briefly with oncology today and they recommended another platelet infusion. Oncology recommended that the patient be transitioned to oral antibiotics today and if she remained afebrile tomorrow, she could be discharged home. - Physical Exam General: Alert, Oriented x3, Cooperative, No apparent distress, Well developed HEENT: Atraumatic, PERRLA, EOMI, Normocephalic Oral: Moist Mucosa Neck: Supple, No Nuchal Rigidity, Trachea Midline, Thyroid Normal Size and Texture Lungs: Clear to auscultation, Normal air movement, No rhonchi, No wheeze, No rales Cardiovascular: Regular rate, Regular Rhythm, Normal S1, Normal S2, No murmurs, No Ectopic Activity, PMI Normal, No rub noted, No Gallop Abdomen: Bowel Sounds Present, Soft, Non Tender, Non-Distended Extremities: No edema, Capillary Refill Less than 3 Seconds Skin: No rashes, No breakdown Neurological: Cranial nerves II-XII grossly intact, Neuro grossly intact, Sensory exam intact to light touch and pain, Coordination normal Psych/Mental Status: Normal Affect, Appropriate, Alert and oriented to time, place, person, mood and affect Vital Signs Temp Pulse Resp BP Pulse Ox 98.5 F 97 18 141/70 H 94 10/14/18 15:46 10/14/18 15:46 10/14/18 15:46 10/14/18 15:46 10/14/18 15:46 Oxygen Flow Rate (L/min) 1 Oxygen Delivery Method Room Air Weight: 95.5 kg Body Mass Index (BMI) 36.1 Intake and Output for Last 24 Hours 10/12/18 10/13/18 10/14/18 23:59 23:59 23:59 Intake Total 3111 / 3111 3891 / 3891 4285 / 4285 Output Total 150 / 150 4050 / 4050 3000 / 3000 Balance 2961 / 2961 -159 / -159 1285 / 1285 Microbiology Past 72 Hours 10/11/18 19:30 Urine Culture - Final Urine, Clean Catch Mixed Gram Positive Organisms 10/11/18 19:25 Blood Culture - Preliminary Blood Culture (Wb) - Anticubital Right No growth in 48 hours. 10/11/18 18:50 Blood Culture - Preliminary Blood Culture (Wb) #2 - Anticubital Left No growth in 48 hours. 10/12/18 21:20 Gram Stain - Final Sputum, Expectorated/Coughed Respiratory Culture - Preliminary Gram positive joao 10/11/18 19:30 Urine Culture - Preliminary Urine, Clean Catch Gram positive organism 10/11/18 19:30 Legionella Antigen - Final Urine, Clean Catch 10/11/18 19:30 Streptococcus pneumoniae Antigen (M - Final Urine, Clean Catch Laboratory Tests Past 24 Hrs 10/13/18 10/14/18 10/14/18 20:16 07:00 07:00 WBC 8.5 RBC 2.82 L Hgb 8.6 L Hct 26.8 L MCV 95.0 MCH 30.5 MCHC 32.1 RDW 19.0 H RDW Differential 58.9 H Plt Count 8 L* Immature Gran % (Auto) STAFFING AND SCHEDULING COORDINATOR Neut % (Auto) STAFFING AND SCHEDULING COORDINATOR Lymph % (Auto) STAFFING AND SCHEDULING COORDINATOR [place] % (Auto) STAFFING AND SCHEDULING COORDINATOR Eos % (Auto) STAFFING AND SCHEDULING COORDINATOR Baso % (Auto) STAFFING AND SCHEDULING COORDINATOR Absolute Neuts (auto) 0.1 L Absolute Lymphs (auto) 3.06 Total Counted 100 Neutrophils % (Manual) 1 L Lymphocytes % (Manual) 36 Blast Cells % 63 H* Diff Path Review Reviewed Platelet Estimate MKD DEC RBC Morphology NORM C+C Sodium 140 Potassium 3.6 Chloride 107 Carbon Dioxide 27.0 Anion Gap 6 BUN 9 Creatinine 0.66 Estim Creat Clear Calc 41.97 Est GFR (MDRD) Af Amer 111 Est GFR (MDRD) Non-Af 92 BUN/Creatinine Ratio 13.5 Glucose 109 H Calcium 9.7 Vancomycin Trough 4.3 L Medical Necessity - Tobacco Use Smoking Status: Never smoker Tobacco Use: Non-smoker Assessment/Plan All Active Problems Neutropenic fever (Acute) Sepsis (Acute) Pancytopenia (Acute) #1 healthcare associated pneumonia-exact organism unclear at this point, gram-negative bacteria is suspected, patient was placed on Augmentin today along with Levaquin, her meropenem was stopped. 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
--- NOTE | 2018-10-14 19:12 | PN_ITS ---
Patient Problems: Active and Suspected Problems Neutropenic fever (Acute) Sepsis (Acute) Pancytopenia (Acute) Subjective: Patient was seen and examined today, her blood cultures so far have been negative, her platelet count today was 8000, I talked briefly with oncology today and they recommended another platelet infusion. Oncology recommended that the patient be transitioned to oral antibiotics today and if she remained afebrile tomorrow, she could be discharged home. - Physical Exam General: Alert, Oriented x3, Cooperative, No apparent distress, Well developed HEENT: Atraumatic, PERRLA, EOMI, Normocephalic Oral: Moist Mucosa Neck: Supple, No Nuchal Rigidity, Trachea Midline, Thyroid Normal Size and Texture Lungs: Clear to auscultation, Normal air movement, No rhonchi, No wheeze, No rales Cardiovascular: Regular rate, Regular Rhythm, Normal S1, Normal S2, No murmurs, No Ectopic Activity, PMI Normal, No rub noted, No Gallop Abdomen: Bowel Sounds Present, Soft, Non Tender, Non-Distended Extremities: No edema, Capillary Refill Less than 3 Seconds Skin: No rashes, No breakdown Neurological: Cranial nerves II-XII grossly intact, Neuro grossly intact, Sensory exam intact to light touch and pain, Coordination normal Psych/Mental Status: Normal Affect, Appropriate, Alert and oriented to time, place, person, mood and affect Vital Signs Temp Pulse Resp BP Pulse Ox 98.5 F 97 18 141/70 H 94 10/14/18 15:46 10/14/18 15:46 10/14/18 15:46 10/14/18 15:46 10/14/18 15:46 Oxygen Flow Rate (L/min) 1 Oxygen Delivery Method Room Air Weight: 95.5 kg Body Mass Index (BMI) 36.1 Intake and Output for Last 24 Hours 10/12/18 10/13/18 10/14/18 23:59 23:59 23:59 Intake Total 3111 / 3111 3891 / 3891 4285 / 4285 Output Total 150 / 150 4050 / 4050 3000 / 3000 Balance 2961 / 2961 -159 / -159 1285 / 1285 Microbiology Past 72 Hours 10/11/18 19:30 Urine Culture - Final Urine, Clean Catch Mixed Gram Positive Organisms 10/11/18 19:25 Blood Culture - Preliminary Blood Culture (Wb) - Anticubital Right No growth in 48 hours. 10/11/18 18:50 Blood Culture - Preliminary Blood Culture (Wb) #2 - Anticubital Left No growth in 48 hours. 10/12/18 21:20 Gram Stain - Final Sputum, Expectorated/Coughed Respiratory Culture - Preliminary Gram positive joao 10/11/18 19:30 Urine Culture - Preliminary Urine, Clean Catch Gram positive organism 10/11/18 19:30 Legionella Antigen - Final Urine, Clean Catch 10/11/18 19:30 Streptococcus pneumoniae Antigen (M - Final Urine, Clean Catch Laboratory Tests Past 24 Hrs 10/13/18 10/14/18 10/14/18 20:16 07:00 07:00 WBC 8.5 RBC 2.82 L Hgb 8.6 L Hct 26.8 L MCV 95.0 MCH 30.5 MCHC 32.1 RDW 19.0 H RDW Differential 58.9 H Plt Count 8 L* Immature Gran % (Auto) JUICE MIXER Neut % (Auto) JUICE MIXER Lymph % (Auto) JUICE MIXER [place] % (Auto) JUICE MIXER Eos % (Auto) JUICE MIXER Baso % (Auto) JUICE MIXER Absolute Neuts (auto) 0.1 L Absolute Lymphs (auto) 3.06 Total Counted 100 Neutrophils % (Manual) 1 L Lymphocytes % (Manual) 36 Blast Cells % 63 H* Diff Path Review Reviewed Platelet Estimate MKD DEC RBC Morphology NORM C+C Sodium 140 Potassium 3.6 Chloride 107 Carbon Dioxide 27.0 Anion Gap 6 BUN 9 Creatinine 0.66 Estim Creat Clear Calc 41.97 Est GFR (MDRD) Af Amer 111 Est GFR (MDRD) Non-Af 92 BUN/Creatinine Ratio 13.5 Glucose 109 H Calcium 9.7 Vancomycin Trough 4.3 L Medical Necessity - Tobacco Use Smoking Status: Never smoker Tobacco Use: Non-smoker Assessment/Plan All Active Problems Neutropenic fever (Acute) Sepsis (Acute) Pancytopenia (Acute) #1 healthcare associated pneumonia-exact organism unclear at this point, gram- negative bacteria is suspected, patient was placed on Augmentin today along with Levaquin, her meropenem was stopped. 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
[2018-10-15] MEDS: 0.9% Normal Saline 1,000 ML 125 ML IV (01:33)
[2018-10-15 03:00] VITALS: BP 173/88; PULSE 104; RESP 18; TEMP 36.6; O2SAT 95
[2018-10-15] MEDS: levoFLOXacin 500 MG Tablet PO (05:54)
[2018-10-15] MEDS: Clotrimazole 10 MG Troche MUCOUS MEM ×3 (05:54→15:03)
--- NOTE | 2018-10-15 08:00 | PCM.PROGNOTE ---
Patient Problems: Active and Suspected Problems Neutropenic fever (Acute) Sepsis (Acute) Pancytopenia (Acute) Subjective: She has no complaint. Cough is improving denies shortness of breath or chest pain. No bleeding or hemoptysis. Blood cultures negative, sputum showed gram-positive rods Chest x-ray show left lower lobe infiltrate unchanged. She will remain afebrile on Augmentin yesterday. - Physical Exam General: Alert, Oriented x3, Cooperative, No apparent distress HEENT: Atraumatic, PERRLA, EOMI Oral: Moist Mucosa, No Gingival or Mucosal Lesions/ Ulcerations Neck: Supple, No JVD Lungs: Clear to auscultation, Normal air movement, No rhonchi, No wheeze Cardiovascular: Regular rate, Regular Rhythm, Normal S1, Normal S2, No murmurs Abdomen: Bowel Sounds Present, Soft, Non Tender, Non-Distended, No Hepato-splenomegaly Extremities: No clubbing, No cyanosis, No edema, - - No Petechiae Skin: No rashes, No breakdown Lymphatic: No Cervical, Supraclavicular, or Inguinal Adenopathy Neurological: Neuro grossly intact Psych/Mental Status: Normal Affect Vital Signs Temp Pulse Resp BP Pulse Ox 97.8 F 104 H 18 173/88 H 95 10/15/18 03:00 10/15/18 03:00 10/15/18 03:00 10/15/18 03:00 10/15/18 03:00 Oxygen Flow Rate (L/min) 1 Oxygen Delivery Method Room Air Weight: 210 lb 8.663 oz Body Mass Index (BMI) 36.1 Intake and Output for Last 24 Hours 10/13/18 10/14/18 10/15/18 23:59 23:59 23:59 Intake Total 3891 / 3891 4285 / 4285 2258 / 2258 Output Total 4050 / 4050 3000 / 3000 Balance -159 / -159 1285 / 1285 2258 / 2258 Microbiology Past 72 Hours 10/12/18 21:20 Gram Stain - Final Sputum, Expectorated/Coughed Respiratory Culture - Final Gram positive joao 10/11/18 19:30 Urine Culture - Final Urine, Clean Catch Staphylococcus epidermidis 10/11/18 19:30 Urine Culture - Final Urine, Clean Catch Mixed Gram Positive Organisms 10/11/18 19:25 Blood Culture - Preliminary Blood Culture (Wb) - Anticubital Right No growth in 48 hours. 10/11/18 18:50 Blood Culture - Preliminary Blood Culture (Wb) #2 - Anticubital Left No growth in 48 hours. Laboratory Tests Past 24 Hrs 10/14/18 07:00 WBC 8.5 RBC 2.82 L Hgb 8.6 L Hct 26.8 L MCV 95.0 MCH 30.5 MCHC 32.1 RDW 19.0 H RDW Differential 58.9 H Plt Count 8 L* Immature Gran % (Auto) GUEST RELATIONS COORDINATOR Neut % (Auto) GUEST RELATIONS COORDINATOR Lymph % (Auto) GUEST RELATIONS COORDINATOR [place] % (Auto) GUEST RELATIONS COORDINATOR Eos % (Auto) GUEST RELATIONS COORDINATOR Baso % (Auto) GUEST RELATIONS COORDINATOR Absolute Neuts (auto) 0.1 L Absolute Lymphs (auto) 3.06 Total Counted 100 Neutrophils % (Manual) 1 L Lymphocytes % (Manual) 36 Blast Cells % 63 H* Diff Path Review Reviewed Platelet Estimate MKD DEC RBC Morphology NORM C+C Medical Necessity - Tobacco Use Smoking Status: Never smoker Tobacco Use: Non-smoker Assessment/Plan All Active Problems Neutropenic fever (Acute) Sepsis (Acute) Pancytopenia (Acute) ASSESSMENT/PLAN: 1) Neutropenic fever. Assessment: -Patient developed fever while on Levaquin with no other symptoms--cough is infrequent, chronic and unchanged. -Subjectively feeling better on broader spectrum antibiotics & remain afebrile Plan: -Continue Levaquin and acyclovir prophylaxis 2) LLL infiltrate. Assessment: -CT images reviewed. Rather dense and large infiltrate LLL. -May be evolving fungal pneumonia, but I would expect her symptoms to be much more pronounced. -She appears to be responding to broader spec antibiotics as noted above. Plan: -Discharge home today on Levaquin and 7 days of Augmentin 875mg BID for treatment of LLL pneumonia 3) Pancytopenia. Assessment: -Secondary to AML. -No bleeding issues. -Does not need irradiated blood products. Plan: -Repeat CBC Saturday in our office for possible transfusion. 4) AML. Assessment: -Blast count remains significantly elevated following 2 cycles of Vidaza, with minor improvement after each cycle of treatment Plan: -Follow-up with Dr. Knapp next week in office. 5) essential hypertension Assessment: -Continue monitor at home for possible adjustment of her blood pressure medications. Additional CC's: Nathaniel Sterling; Stephane Knapp
--- NOTE | 2018-10-15 08:06 | PN_ITS ---
Patient Problems: Active and Suspected Problems Neutropenic fever (Acute) Sepsis (Acute) Pancytopenia (Acute) Subjective: She has no complaint. Cough is improving denies shortness of breath or chest pain. No bleeding or hemoptysis. Blood cultures negative, sputum showed gram-positive rods Chest x-ray show left lower lobe infiltrate unchanged. She will remain afebrile on Augmentin yesterday. - Physical Exam General: Alert, Oriented x3, Cooperative, No apparent distress HEENT: Atraumatic, PERRLA, EOMI Oral: Moist Mucosa, No Gingival or Mucosal Lesions/ Ulcerations Neck: Supple, No JVD Lungs: Clear to auscultation, Normal air movement, No rhonchi, No wheeze Cardiovascular: Regular rate, Regular Rhythm, Normal S1, Normal S2, No murmurs Abdomen: Bowel Sounds Present, Soft, Non Tender, Non-Distended, No Hepato- splenomegaly Extremities: No clubbing, No cyanosis, No edema, - - No Petechiae Skin: No rashes, No breakdown Lymphatic: No Cervical, Supraclavicular, or Inguinal Adenopathy Neurological: Neuro grossly intact Psych/Mental Status: Normal Affect Vital Signs Temp Pulse Resp BP Pulse Ox 97.8 F 104 H 18 173/88 H 95 10/15/18 03:00 10/15/18 03:00 10/15/18 03:00 10/15/18 03:00 10/15/18 03:00 Oxygen Flow Rate (L/min) 1 Oxygen Delivery Method Room Air Weight: 210 lb 8.663 oz Body Mass Index (BMI) 36.1 Intake and Output for Last 24 Hours 10/13/18 10/14/18 10/15/18 23:59 23:59 23:59 Intake Total 3891 / 3891 4285 / 4285 2258 / 2258 Output Total 4050 / 4050 3000 / 3000 Balance -159 / -159 1285 / 1285 2258 / 2258 Microbiology Past 72 Hours 10/12/18 21:20 Gram Stain - Final Sputum, Expectorated/Coughed Respiratory Culture - Final Gram positive joao 10/11/18 19:30 Urine Culture - Final Urine, Clean Catch Staphylococcus epidermidis 10/11/18 19:30 Urine Culture - Final Urine, Clean Catch Mixed Gram Positive Organisms 10/11/18 19:25 Blood Culture - Preliminary Blood Culture (Wb) - Anticubital Right No growth in 48 hours. 10/11/18 18:50 Blood Culture - Preliminary Blood Culture (Wb) #2 - Anticubital Left No growth in 48 hours. Laboratory Tests Past 24 Hrs 10/14/18 07:00 WBC 8.5 RBC 2.82 L Hgb 8.6 L Hct 26.8 L MCV 95.0 MCH 30.5 MCHC 32.1 RDW 19.0 H RDW Differential 58.9 H Plt Count 8 L* Immature Gran % (Auto) CATHODE [employer]AY [employer] SALVAGE PROCESSOR Neut % (Auto) CATHODE RAY TUBE SALVAGE PROCESSOR Lymph % (Auto) CATHODE R[employer] T[employer] SALVAGE PROCESSOR [place] % (Auto) CATHODE RAY TUBE SALVAGE PROCESSOR Eos % (Auto) CATHODE R[employer] T[employer] SALVAGE PROCESSOR Baso % (Auto) CATHODE RAY TUBE SALVAGE PROCESSOR Absolute Neuts (auto) 0.1 L Absolute Lymphs (auto) 3.06 Total Counted 100 Neutrophils % (Manual) 1 L Lymphocytes % (Manual) 36 Blast Cells % 63 H* Diff Path Review Reviewed Platelet Estimate MKD DEC RBC Morphology NORM C+C Medical Necessity - Tobacco Use Smoking Status: Never smoker Tobacco Use: Non-smoker Assessment/Plan All Active Problems Neutropenic fever (Acute) Sepsis (Acute) Pancytopenia (Acute) ASSESSMENT/PLAN: 1) Neutropenic fever. Assessment: -Patient developed fever while on Levaquin with no other symptoms--cough is infrequent, chronic and unchanged. -Subjectively feeling better on broader spectrum antibiotics & remain afebrile Plan: -Continue Levaquin and acyclovir prophylaxis 2) LLL infiltrate. Assessment: -CT images reviewed. Rather dense and large infiltrate LLL. -May be evolving fungal pneumonia, but I would expect her symptoms to be much more pronounced. -She appears to be responding to broader spec antibiotics as noted above. Plan: -Discharge home today on Levaquin and 7 days of Augmentin 875mg BID for treatment of LLL pneumonia 3) Pancytopenia. Assessment: -Secondary to AML. -No bleeding issues. -Does not need irradiated blood products. Plan: -Repeat CBC Saturday in our office for possible transfusion. 4) AML. Assessment: -Blast count remains significantly elevated following 2 cycles of Vidaza, with minor improvement after each cycle of treatment Plan: -Follow-up with Dr. Knapp next week in office. 5) essential hypertension Assessment: -Continue monitor at home for possible adjustment of her blood pressure medications. Additional CC's: Nathaniel Sterling; Stephane Knapp
[2018-10-15 08:43] VITALS: BP 144/75; PULSE 96; RESP 20; TEMP 37.1; O2SAT 96
[2018-10-15] MEDS: Amox/Clavulanate 875 MG Tablet PO ×2 (09:07→17:00)
[2018-10-15] MEDS: Acyclovir 200 MG Capsule 400 MG PO (09:08)
[2018-10-15] MEDS: Famotidine 20 MG Tablet PO (09:08)
[2018-10-15] MEDS: Acetaminophen 325 MG Tablet 650 MG PO (11:21)
--- NOTE | 2018-10-15 11:48 | PCM.DC ---
- Discharge Diagnoses Current Active Problems: Current Active and Chronic Problems Neutropenic fever (Acute) Sepsis (Acute) Pancytopenia (Acute) AML (acute myeloblastic leukemia) (Chronic) HTN (hypertension) (Chronic) Obesity (Chronic) You will use the following diet at home:: Cardiac Your food should be the consistency of: Regular Your liquids should be the consistency of: Regular/Thin Discharge Activity: Return to Normal Activity Weight Bearing Status: Weight bearing as tolerated Call your doctor if you observe: Fever of 101 or Higher Instructions: Neutropenia, What Is Pneumonia?, Pneumonia Treatment Additional Instructions: platelets to be followed up with repeat CBC in oncologist's office on Saturday10/17/18 Allergies/Adverse Reactions: Allergies No Known Allergies Allergy (Verified 10/11/18 22:58) Medications to take at Discharge Acyclovir 400 mg PO BID 10/11/18 Ondansetron [Zofran] 8 mg PO Q8H PRN PRN 10/11/18 levoFLOXacin tablet [Levaquin tablet] 500 mg PO DAILY 10/11/18 Amox/Clavulanate Tablet [Augmentin Tablet] 875 mg PO BIDCM #14 tablet 10/15/18 The following prescriptions were given: Amox/Clavulanate Tablet [Augmentin Tablet] 875 mg PO BIDCM #14 tablet Primary Care Physician: Stephane Knapp DO [Primary Care Provider] - Please follow up with your Primary Care Physician in: 1 week Test Results: Test results from this visit will be discussed in further detail at your follow-up appointment, if applicable. Proposed Discharge Date: 10/15/18
--- NOTE | 2018-10-15 11:51 | DCINST_ITS ---
- Discharge Diagnoses Current Active Problems: Current Active and Chronic Problems Neutropenic fever (Acute) Sepsis (Acute) Pancytopenia (Acute) AML (acute myeloblastic leukemia) (Chronic) HTN (hypertension) (Chronic) Obesity (Chronic) You will use the following diet at home:: Cardiac Your food should be the consistency of: Regular Your liquids should be the consistency of: Regular/Thin Discharge Activity: Return to Normal Activity Weight Bearing Status: Weight bearing as tolerated Call your doctor if you observe: Fever of 101 or Higher Instructions: Neutropenia, What Is Pneumonia?, Pneumonia Treatment Additional Instructions: platelets to be followed up with repeat CBC in oncologist's office on Saturday10/17/18 Allergies/Adverse Reactions: Allergies No Known Allergies Allergy (Verified 10/11/18 22:58) Medications to take at Discharge Acyclovir 400 mg PO BID 10/11/18 Ondansetron [Zofran] 8 mg PO Q8H PRN PRN 10/11/18 levoFLOXacin tablet [Levaquin tablet] 500 mg PO DAILY 10/11/18 Amox/Clavulanate Tablet [Augmentin Tablet] 875 mg PO BIDCM #14 tablet 10/15/18 The following prescriptions were given: Amox/Clavulanate Tablet [Augmentin Tablet] 875 mg PO BIDCM #14 tablet Primary Care Physician: Stephane Knapp DO [Primary Care Provider] - Please follow up with your Primary Care Physician in: 1 week Test Results: Test results from this visit will be discussed in further detail at your follow- up appointment, if applicable. Proposed Discharge Date: 10/15/18
--- NOTE | 2018-10-15 11:51 | PCM.DC.SUM ---
Discharge Date and Diagnosis - Problem List Patient Problems: Active and Suspected Problems Neutropenic fever (Acute) Sepsis (Acute) Pancytopenia (Acute) Date of Admission: 10/11/18 Date of Discharge: 10/15/18 - Primary Discharge Diagnosis Active and Suspected Problems Neutropenic fever (Acute) Sepsis (Acute) Pancytopenia (Acute) - Secondary Discharge Diagnosis Chronic Problems AML (acute myeloblastic leukemia) (Chronic) HTN (hypertension) (Chronic) Obesity (Chronic) Hospital Course and Treatment Imaging Results: Diagnostic Data Abdomen/Pelvis CT 10/11/18 18:38 IMPRESSION: Large consolidation of the left lower lobe. Smaller infiltrate of the medial right lower lobe. Negative for pleural effusion. No acute abdominal findings. Elongated right liver lobe typical of a Hai's lobe. Mild splenomegaly. Normal gallbladder and pancreas. Normal size of the kidneys bilaterally without hydronephrosis or ureteral stones. One nonobstructing cortical calcification of the left kidney. Renal cysts. Negative for evidence of bowel obstruction, perforation or inflammatory bowel changes. Diverticulosis without evidence of acute diverticulitis. Negative for pelvic mass or free fluid of the pelvis. Electronically Signed: Beena Skaggs MD at 20:48 EST , Service support , Chest X-Ray 10/14/18 09:02 IMPRESSION: Stable infiltrate in the left lower lobe with small left pleural effusion. Blunting of the right costophrenic angle. Electronically Signed: Bobby Birmingham MD at 15:04 EST Tel [phone], Service support , oncology- Dr Jimenez Operations: None Procedures: None Summary of Care Provided: [] Mrs. Scott is a 73-year-old female with a past medical history of hypertension, obesity, urine retention with intermittent self-catheterization as needed and recently diagnosed AML being treated with chemotherapy by Dr. Knapp. She presented to the emergency department at [facility] on 10/11/2018 complaining of generalized weakness, fatigue, poor appetite, nausea/vomiting and abdominal discomfort since her chemotherapy 10/10/2018. Temperature was elevated in the emergency room to 100 ?F (despite OP Levaquin)and the heart rate was increased to 108 bpm. She was 93% saturated on room air. Hemoglobin was low at 7.6 and platelets were 7000. White blood cell count was unrecordable. Lactic acid was 0.8. Urinalysis had no significant pyuria however the patient has severe leukopenia. Chest x-ray showed a focal increased area of density in the posterior left base secondary to possible infiltrate. CT of the abdomen and pelvis revealed a large consolidation in the left lower lobe with a smaller infiltrate in the right middle lobe. There were no acute abdominal findings. Gallbladder and pancreas appeared normal. She received vancomycin and meropenem in the emergency room and admitted to the hospital with a diagnosis of sepsis secondary to HCAP in a patient who is neutropenic on chemotherapy. Meropenem and vancomycin were continued at admission. Patient was given 1 unit of apheresed platelets and 1 unit of packed red blood cells. Patient has been seen by oncology- Dr. Knapp. Oncology did not recommend growth factors. She was transfused a total of 3 units of leucoreduced apheresed platelets. However, platelets remained refractory to transfusion and was still 8 at time of discharge. Urine culture grew Staph epidermidis, and mixed gram positive organisms; sputum and blood cultures were negative. SHe remained stable, and became afebrile. She was discharged home on 10/15/18; she is to follow up with her PCP and oncologist. Platelets to be checked by oncologist at her next visit in 3 days time, and to get transfusion as needed. She was discharged with a script for PO augmentin 875mg bic x 7 days. Patient seen and examined prior to discharge. She had no complaints and felt well. She denied any fever, chills, coughm, chest pain, SOB, abdominal pain, diarrhea or vomiting. Review of systems is otherwise negative. o/e: Vital Signs Height 5 ft 4 in Weight: 210 lb 8.663 oz Weight in Pounds 210.5 lbs Pulse Ox 96 Temperature 97.8 F Pulse Rate 91 Respiratory Rate 18 Blood Pressure 141/78 Blood Pressure Position Semi-Fowlers General: Alert, Oriented x3, Cooperative, No apparent distress, Well developed HEENT: Atraumatic, PERRLA, EOMI, Normocephalic Oral: Moist Mucosa Neck: Supple, No Nuchal Rigidity, Lungs: Clear to auscultation, Normal air movement, No rhonchi, No wheeze, No rales Cardiovascular: Regular rate, Regular Rhythm, Normal S1, Normal S2, No murmurs, Abdomen: Bowel Sounds Present, Soft, Non Tender, Non-Distended Extremities: No edema, Capillary Refill Less than 3 Seconds Skin: No rashes, No breakdown Neurological: Cranial nerves II-XII grossly intact, Neuro grossly intact, Psych/Mental Status: Normal Affect, Appropriate, Alert and oriented to time, place, person, mood and affect Plan as described above. Patient Problems: Active and Suspected Problems Neutropenic fever (Acute) Sepsis (Acute) Pancytopenia (Acute) - Physical Exam Vital Signs Temp Pulse Resp BP Pulse Ox 98.7 F 96 20 H 144/75 H 96 10/15/18 08:43 10/15/18 08:43 10/15/18 08:43 10/15/18 08:43 10/15/18 08:43 Oxygen Flow Rate (L/min) 1 Oxygen Delivery Method Room Air Weight: 210 lb 8.663 oz Body Mass Index (BMI) 36.1 Intake and Output for Last 24 Hours 10/13/18 10/14/18 10/15/18 23:59 23:59 23:59 Intake Total 3891 / 3891 4285 / 4285 3796 / 3796 Output Total 4050 / 4050 3000 / 3000 Balance -159 / -159 1285 / 1285 3796 / 3796 Microbiology Past 72 Hours 10/12/18 21:20 Gram Stain - Final Sputum, Expectorated/Coughed Respiratory Culture - Final Gram positive joao 10/11/18 19:30 Urine Culture - Final Urine, Clean Catch Staphylococcus epidermidis 10/11/18 19:30 Urine Culture - Final Urine, Clean Catch Mixed Gram Positive Organisms 10/11/18 19:25 Blood Culture - Preliminary Blood Culture (Wb) - Anticubital Right No growth in 48 hours. 10/11/18 18:50 Blood Culture - Preliminary Blood Culture (Wb) #2 - Anticubital Left No growth in 48 hours. Laboratory Tests Past 24 Hrs 10/14/18 07:00 Diff Path Review Reviewed Discharge Activity: Return to Normal Activity Weight Bearing Status: Weight bearing as tolerated Call your doctor if you observe: Fever of 101 or Higher Home Medications: Medications to take at Discharge Acyclovir 400 mg PO BID 10/11/18 Ondansetron [Zofran] 8 mg PO Q8H PRN PRN 10/11/18 levoFLOXacin tablet [Levaquin tablet] 500 mg PO DAILY 10/11/18 Amox/Clavulanate Tablet [Augmentin Tablet] 875 mg PO BIDCM #14 tablet 10/15/18 Following Prescrptions Were Given to Patient: Amox/Clavulanate Tablet [Augmentin Tablet] 875 mg PO BIDCM #14 tablet Primary Care Physician: Stephane Knapp DO [Primary Care Provider] - Please follow up with your Primary Care Physician in: 1 week Patient Instructions: Neutropenia, What Is Pneumonia?, Pneumonia Treatment Disposition: Home Minutes spent on discharge:: 45 Patient Condition:: Stable Medical Necessity - Tobacco Use Smoking Status: Never smoker Tobacco Use: Non-smoker Meaningful Use Info Meaningful Use Diagnoses (Choose all that apply): None applicable Code Visit Inpatient E&M: 85179 Disch Hosp
[2018-10-15 14:45] VITALS: BP 141/78; PULSE 91; RESP 18; TEMP 36.6; O2SAT 96
== END 2018-10-15 17:05 | disposition home or self-care (01) | DRG 871 ==
LOC: ED 19:42 → MS3 22:02
PROVIDERS: Internal Medicine; Admitting Provider Family Medicine; Emergency Provider Emergency Medicine; Family Provider Internal Medicine Hematology & Oncology; PCP Internal Medicine Hematology & Oncology; Visit Provider Student in an Organized Health Care Education/Training Program
DX: A41.9 Sepsis, unspecified organism (principal); J18.9 Pneumonia, unspecified organism; C92.00 Acute myeloblastic leukemia, not having achieved remission; E87.1 Hypo-osmolality and hyponatremia; D61.818 Other pancytopenia; Z66 Do not resuscitate; R33.9 Retention of urine, unspecified; I10 Essential (primary) hypertension; R50.81 Fever presenting with conditions classified elsewhere; Z68.36 Body mass index [BMI] 36.0-36.9, adult; Y95 Nosocomial condition; D70.9 Neutropenia, unspecified
CPT/HCPCS: 36415; 71046; 74176; 80048; 80053; 80202; 81001; 83605; 83735; 84100; 85025; 85027; 85610; 85730; 86644; 86850; 86900; 86920; 86965; 87040; 87070; 87077; 87086; 87088; 87186; 87205; 87449; 93005; 94667; 94668; 97161; 97165; 97802; 99282; J2185; J7030; J7040; J7050; P9016; P9035; A4216

== ENCOUNTER 2018-10-17 10:44 | Inpatient (IN) | payer OTHER, SELFPAY ==
[2018-10-17] VITALS (11 sets, daily range): BP systolic 107–156; BP diastolic 48–81; PULSE 94–110; RESP 16–18; TEMP 36.7–37.8; O2SAT 93–97; BMI 34.7
--- NOTE | 2018-10-17 11:12 | RAD_ITS ---
STUDY: X-RAY CHEST REASON FOR EXAM: Female, 73 years old. Left-sided chest pain. Fever. TECHNIQUE: PA and lateral views of the chest. COMPARISON: Comparison is made with prior examination dated October 14, 2018. FINDINGS: EKG electrodes are seen. Persistent left lower lobe infiltrate. There is been a mild degree of improved aeration at the left lung base. There is no demonstrated pleural abnormality. Normal size heart. Normal mediastinum and william. Normal visualized pulmonary arteries. Normal visualized aortic arch and descending thoracic aorta. There are diffuse degenerative changes of the visualized thoracic spine. Increased kyphosis. Normal visualized ribs, clavicles, and shoulders. There is no demonstrated abnormality of the visualized soft tissue structures of the upper abdomen. RAD/Chest PA and Lateral IMPRESSION: Persistent left lower lobe infiltrate with blunting of the left costophrenic angle. There has been improvement as compared to prior study. Electronically Signed: Bobby Birmingham MD at 12:19 EST Tel [phone], Service support ,
--- NOTE | 2018-10-17 11:18 | ED.DCSUM_ITS ---
- ER Visit Summary Date of Service: 10/17/18 Chief Complaint: Fever History of Present Illness: The patient is a 73 F history of leukemia currently on chemotherapy. Last chemotherapy treatment was 2 weeks ago. She was admitted to the hospital and just discharged 2 days ago for recent pneumonia.. Patient also has known anemia and thrombocyte she states last night she had fever as high as 102.6. She denies nausea, vomiting, diarrhea or dysuria. She has had a mild cough with mild shortness of breath. She denies currently any chest pain. There is no hemoptysis. No leg swelling or calf pain. Physical Examination: Well-appearing older female. Vital signs are stable and afebrile. Currently her temperature is 92. She did take Tylenol 2 hours prior to arrival. She is in no distress. HEENT exam unremarkable. Moist mucous membranes. Neck nontender. No meningismus. No lymphadenopathy. Lungs clear to auscultation bilaterally. Heart regular rhythm no murmur. Abdomen soft and nontender. Normal bowel sounds no peritoneal signs. Extremities patient is moving all 4. Calves are nontender without edema or cords. Neurologically patient is awake and alert with no focal motor deficits. Is normal. Sensation is normal. Back nontender. Skin no rashes. Test Results: Chest x-ray shows a left lower lobe infiltrate that is improved according the radiologist compared to the recent study. White count 8. Hemoglobin 8.2. Hematocrit 25. Platelet count of 7000 which is her baseline. Chemistries unremarkable gap is 7 creatinine 0.7. Liver enzymes unremarkable UA normal. Lactic 0.9. Blood cultures pending. CT of the chest with IV contrast as requested by her oncologist she has a dense left lower lobe infiltrate and a nodular density in the right upper lobe. Emergency Department Course and Treatment: Patient will undergo an ED neutropenic workup. Treatment Plan: I did speak to Dr. Knapp the patient's oncologist from [facility]. His concern is with the patient's immunosuppressed state, recent antibiotics, fever and chemotherapy that she may be developing a aspergillosis infection of her lungs. Our plan was to readmit her have her also evaluated by pulmonology for possible bronchoscopy in the next several days. And consider restarting her antibiotics. I discussed this with the hospitalist Dr. Luis mata and he wanted me to hold off on starting any antibiotics at this time and he will discuss with the oncologist a plan. Disposition: Admit Impression: Fever Status post chemotherapy for leukemia limited use Recent pneumonia Immunocompromised with anemia and thrombocytopenia secondary to chemotherapy. This note was generated with [employer] dictation software. It may contain incorrect words, spelling, and punctuation that were not noted in review of the chart prior to signing ED Disposition - Plan for ED Patient: Chief Complaint: Fever Referrals: Stephane Knapp DO [Primary Care Provider] -
[2018-10-17] MEDS: 0.9% Normal Saline 1,000 ML 999 ML IV (11:26)
[2018-10-17 11:55] LABS: ALB/GLOB Ratio 0.7 RATIO (0.9-2.4); AST(SGOT) 20 U/L (15-37); Alanine Aminotransfer ALT/SGPT 19 U/L (13-56); Albumin, Serum 2.9 g/dL (3.2-5.0); Alkaline Phosphatase 89 U/L (45-117); Anion Gap 7 (5-15); BUN 17 mg/dL (7-18); BUN/Creat Ratio 23.3 RATIO (10-20); Calcium,Total 9.9 mg/dL (8.5-10.1); Chloride 102 mmol/L (98-107); Creatinine, Serum 0.73 mg/dL (0.55-1.02); EST Glomerular Filtration Rate 82 mL/min (>60); Est Glom Filt Rate - Afr Amer 100 mL/min (>60); Estimated Creatinine Clearance 41.97 ml/min; Globulin 4.4 g/dL (2.2-4.2); Glucose 118 mg/dL (74-106); Potassium 3.8 mmol/L (3.5-5.1); Protein, Total 7.3 g/dL (6.4-8.2); Sodium Level 136 mmol/L (136-145)
[2018-10-17 12:00] LABS: Lactic Acid 0.9 mmol/L (0.4-2.0)
[2018-10-17 12:21] LABS: Hemoglobin 8.2 g/dl (12.0-15.0); Mean Corp Hgb Conc 32.8 g/gl (32-36); Mean Corpuscular Hgb 29.8 pg (27.0-32.0); Mean Corpuscular Volume 90.9 fL (81-99); Platelet Count 7 K/mm3 (150-450); RBC Distribution Width SD 58.8 fl (35.1-43.9); Red Blood Count 2.75 M/mm3 (4.2-5.4)
[2018-10-17 12:22] LABS: Differential Indicated MANUAL DIFF; POSITIVE COUNT YES; POSITIVE DIFFERENTIAL YES; POSITIVE MORPHOLOGY YES
[2018-10-17 12:34] LABS: Neutrophil-Segmented 2 % (47-70); Total Cells Counted 100 (MANUAL DIFF)
[2018-10-17 12:35] LABS: Anisocytosis 1+; Blast 84 % (0-0); Lymphocyte 10 % (19-41); Metamyelocyte 1 % (0-1); Monocyte 2 % (0-10); Myelocyte 1 (0-0); Platelet Estimate MKD DEC (ADEQ); Red Cell Morphology N CHROM NORMAL (NORM C&C)
[2018-10-17 12:36] LABS: White Blood Count 8.2 K/mm3 (4.4-11.0)
[2018-10-17 12:38] LABS: Absolute Lymphocyte Count 0.82 X10^3/ul (0.83-4.51); Absolute Neutrophil Count 0.2 X10^3/uL (2.0-7.7); Lymphocyte # 0.82 X10^3/ul (4.0); Neutrophil # 0.16 X10^3/uL (2.7-7.7)
--- NOTE | 2018-10-17 12:38 | ED.RN ---
notified Dr. Wagner of plts 7
[2018-10-17 13:01] LABS: Mucous, Urine 0 SEEN /hpf (<or=2+)
[2018-10-17 13:05] LABS: Color, Urine Yellow (Yellow); Glucose, Dipstick Normal (Normal); Ketone-Dipstick 5 mg/dl (Negative); Leukocyte Esterase-Dipstick 25 /ul (Negative); Nitrite-Dipstick Negative (Negative); Occult Blood-Urine 10 /ul (Negative); Protein-Dipstick 30 mg/dl (Negative); Specific Gravity, Urine 1.025 (1.002-1.030); Urine Bilirubin Dipstick Negative (Negative); Urine Clarity Clear (Clear); Urine Urobilinogen 1 mg/dl (Normal)
[2018-10-17 13:27] LABS: Bacteria 1+ /hpf (None Seen); Red Blood Cells-Urine 0-5 SEEN /hpf (0-5); Squamous Epithelial Cells - UA 0-5 SEEN /hpf (5-10); White Blood Cells 0-5 SEEN /hpf (0-5)
[2018-10-17 13:28] LABS: Calcium Oxalate Crystals Ur 1+ /hpf (<or=2+)
--- NOTE | 2018-10-17 13:55 | CT_ITS ---
STUDY: CT CHEST WITH CONTRAST REASON FOR EXAM: Female, 73 years old. History of pulmonary yeast infection. RADIATION DOSAGE (If Supplied By Facility): CTDIvol = ( 10.89 ) mGy, DLP = ( 453.48 ) mGycm TECHNIQUE: Transaxial imaging was performed following intravenous administration of 100 ml of Isovue 370 contrast material. Multiplanar coronal and sagittal images were reformatted. Individualized dose optimization techniques were used for this CT. COMPARISON: None. FINDINGS: There is a 1.8 cm x 1.9 cm irregular nodular density in the right upper lobe. There is evidence of dense infiltration in the left lower lobe with a small left pleural effusion. Minimal atelectasis and/or scarring at the right lung base. There is no demonstrated pleural abnormality. There are calcifications of the coronary arteries. Minimal posterior pericardial thickening. Normal mediastinum. Normal hilar regions. Normal enhanced pulmonary arteries. There is atherosclerotic calcification of the aortic arch with tortuosity and elongation of the aortic arch and descending thoracic aorta. There are multi-level degenerative changes of the thoracic spine. Osteopenia. Increased kyphosis. Calcified granuloma in the right lobe of the liver. Small hiatal hernia. CT/Chest WITH Contrast IMPRESSION: Dense infiltration in the left lower lobe with a small left pleural effusion. Minimal atelectasis and/or scarring at the right lung base. 1.8 cm x 1.9 cm irregular nodular density in the right upper lobe. Follow-up is recommended. Electronically Signed: Bobby Birmingham MD at 14:58 EST Tel [phone], Service support ,
[2018-10-17 15:58] LABS: Pathologist Review Reviewed
--- NOTE | 2018-10-17 16:26 | PCM.HP.STD ---
<Charan Garnica - Last Filed: 10/17/18 16:26> Problem List (1) Neutropenic fever Status: Acute (2) HCAP (healthcare-associated pneumonia) Status: Acute (3) Sepsis Status: Acute (4) AML (acute myeloblastic leukemia) Status: Chronic (5) Obesity Status: Chronic History of Present Illness Date of Admission: 10/17/18 Chief Complaint: fever The patient is a 73 year old F recently admitted to the hospital with neutropenic fever, treated with vanc and tacos, transitioned oral levaquin and augmentin, diascharged 2 days prior, who presents to the ER with recurrent fever. She has a hx of AML for which she is treated by Dr. Knapp with chemotherapy, last round 2 weeks prior, with more planned in October. Yesterday and today she had fevers as high as 102.6 last night 101.8 this AM. She has taken tylenol, currently not febrile in the ER. She c/o nonproductive cough, no hemoptysis, with some left lower rib pain on coughing, and is SOB with exertion. She was somewhat dizzy this AM. She has no chills or night sweats. She has some diarrhea and nausea, no abdominal pain. No dysuria. On last admission she had gram positive rods in her sputum and staph epi in her urine. She appears to have left lower lobe pna on CXR and CT here, and on CT a RUL nodular density. [] Past Medical History Past Medical History (Chronic Problems): Chronic Problems AML (acute myeloblastic leukemia) (Chronic) HTN (hypertension) (Chronic) Obesity (Chronic) Allergies No Known Allergies Allergy (Verified 10/11/18 22:58) Home Medications: Ambulatory Orders Medication Instructions Recorded Acyclovir 400 mg PO BID 10/11/18 Ondansetron [Zofran] 8 mg PO Q8H PRN PRN 10/11/18 Amox/Clavulanate Tablet [Augmentin 875 mg PO BIDCM #14 tablet 10/15/18 Tablet] levoFLOXacin tablet [Levaquin 500 mg PO DAILY 10/17/18 tablet] Surgical History: no surgical history Psychiatric History: No pertinent psych hx 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 Paternal History Items: - - Father with history of UT at age 43. Sibling History Items: - - Sister with a history of lung cancer. Review of Systems Constitutional: Reports: Fever, Weakness. Denies: Chills, Weight Change HEENT: Denies: Head Aches, Sinus Congestion, Sinus Drainage Cardiovascular: Denies: Chest Pain, Palpitations Respiratory: Reports: Cough, Pleuritic Pain, Shortness of breath upon exertion. Denies: Shortness of breath at rest, Sputum production Gastrointestinal: Denies: Abdominal Pain, Nausea, Vomiting Genitourinary: Denies: Dysuria Musculoskeletal: Denies: Joint Pain, Joint Tenderness Skin: Denies: Rash, Wounds Neurological: Denies: Numbness, Tingling, Focal weakness Psychiatric: Denies: Anxiety, Depression, Homicidal Ideations, Suicidal Ideations Hematologic/ Lymphatic: Denies: Easy Bruising, Easy Bleeding VTE Information - Inpt Only VTE Present on Admission: No VTE Mechan Device Prophylaxis: SCD's VTE Pharm Prophylaxis ordered?: No Patient Problems: Active and Suspected Problems HCAP (healthcare-associated pneumonia) (Acute) - Physical Exam General: Alert, Oriented x3, Cooperative HEENT: Atraumatic, PERRLA, EOMI, Normocephalic Neck: Supple, No JVD, Negative Carotid Bruits Lungs: Diminished, Rales - faint LLL Cardiovascular: Regular rate, No murmurs Abdomen: Bowel Sounds Present, Soft, Non Tender Extremities: No edema, Capillary Refill Less than 3 Seconds Skin: No rashes, No breakdown Musculoskeletal: No Tenderness to Palpation of Joints or Extremities Neurological: Cranial nerves II-XII grossly intact Psych/Mental Status: Normal Affect, Appropriate, Alert and oriented to time, place, person, mood and affect Vital Signs Temp Pulse Resp BP Pulse Ox 98.0 F 94 16 107/56 L 94 10/17/18 10:45 10/17/18 15:57 10/17/18 15:57 10/17/18 13:30 10/17/18 15:57 Oxygen Delivery Method Room Air Weight: 202 lb Body Mass Index (BMI) 34.7 Laboratory Tests Past 24 Hrs 10/17/18 10/17/18 10/17/18 11:30 11:30 11:30 WBC 8.2 RBC 2.75 L Hgb 8.2 L Hct 25.0 L MCV 90.9 MCH 29.8 MCHC 32.8 RDW 19.0 H RDW Differential 58.8 H Plt Count 7 L* Neut % (Auto) Not Reportable Absolute Neuts (auto) 0.2 L Absolute Lymphs (auto) 0.82 L Total Counted 100 Neutrophils % (Manual) 2 L Lymphocytes % (Manual) 10 L Monocytes % (Manual) 2 Metamyelocytes % 1 Myelocytes % 1 H Blast Cells % 84 H* Diff Path Review Reviewed Platelet Estimate MKD DEC RBC Morphology N CHROM Anisocytosis 1+ Sodium 136 Potassium 3.8 Chloride 102 Carbon Dioxide 27.0 Anion Gap 7 BUN 17 Creatinine 0.73 Estim Creat Clear Calc 41.97 Est GFR (MDRD) Af Amer 100 Est GFR (MDRD) Non-Af 82 BUN/Creatinine Ratio 23.3 H Glucose 118 H Lactic Acid 0.9 Calcium 9.9 Total Bilirubin 1.30 H AST 20 ALT 19 Alkaline Phosphatase 89 Total Protein 7.3 Albumin 2.9 L Globulin 4.4 H Albumin/Globulin Ratio 0.7 L Urine Color Urine Clarity Urine pH Ur Specific Gates Urine Protein Urine Glucose (UA) Urine Ketones Urine Occult Blood Urine Nitrite Urine Bilirubin Urine Urobilinogen Ur Leukocyte Esterase Urine RBC Urine WBC Ur Squamous Epith Cells Calcium Oxalate Crystal Urine Bacteria Urine Mucus 10/17/18 13:00 WBC RBC Hgb Hct MCV MCH MCHC RDW RDW Differential Plt Count Neut % (Auto) Absolute Neuts (auto) Absolute Lymphs (auto) Total Counted Neutrophils % (Manual) Lymphocytes % (Manual) Monocytes % (Manual) Metamyelocytes % Myelocytes % Blast Cells % Diff Path Review Platelet Estimate RBC Morphology Anisocytosis Sodium Potassium Chloride Carbon Dioxide Anion Gap BUN Creatinine Estim Creat Clear Calc Est GFR (MDRD) Af Amer Est GFR (MDRD) Non-Af BUN/Creatinine Ratio Glucose Lactic Acid Calcium Total Bilirubin AST ALT Alkaline Phosphatase Total Protein Albumin Globulin Albumin/Globulin Ratio Urine Color Yellow Urine Clarity Clear Urine pH 5.0 Ur Specific Gates 1.025 Urine Protein 30 H Urine Glucose (UA) Normal Urine Ketones 5 H Urine Occult Blood 10 H Urine Nitrite Negative Urine Bilirubin Negative Urine Urobilinogen 1 H Ur Leukocyte Esterase 25 H Urine RBC 0-5 SEEN Urine WBC 0-5 SEEN Ur Squamous Epith Cells 0-5 SEEN Calcium Oxalate Crystal 1+ Urine Bacteria 1+ Urine Mucus 0 SEEN Assessment/Plan All Active Problems Neutropenic fever (Acute) Sepsis (Acute) Pancytopenia (Acute) HCAP (healthcare-associated pneumonia) (Acute) 1. Sepsis 2/2 Neutropenic fever 2/2 HCAP - Vanc/Tacos. Pulm consult. Bronch saturday. Lactate neg. Reculture blood/sputum, obtain urine antigens. UA borderline. Previous resp culture with gram positive cocci and rods, urine with staph epi. She is not hypoxic at rest. Sepsis criteria met with pna present, decreased WBCs and tachycardia. CXR with LLL Pna CT chest with LLL pna, RUL nodular density 2. Pancytopenia 2/2 cancer/chemo, AML - consult Dr. Knapp. Platelets are of particular concern, but this is about what they were last admission. No bleeding/hemoptysis noted. Last chemo 2 weeks prior, next round Oct 27. DVT ppx: SCDs, severely thrombocytopenic. This patient was seen by Charan Garnica PA-C under the supervision of Dr. Frankel. <Luis Frankel - Last Filed: 10/17/18 17:24> Problem List (1) Neutropenic fever Status: Acute History of Present Illness The patient is a 73 year old F just discharged from the the with pneumonia. Presents with 1 day history of fever. Patient has a temperature of 101.8 on the as well as today. Patient advised to go to the emergency room by her. Patient had a CAT scan that showed a left lower lobe infiltrate essentially unchanged from previous. As recommendation by oncology the patient be admitted started on vancomycin and meropenem and have pulmonary see her for a bronchoscopy. [] Past Medical History Allergies No Known Allergies Allergy (Verified 10/11/18 22:58) Smoking Status: Never smoker Tobacco Use: Non-smoker Alcohol: None Drugs: None - *Family History Maternal History Items: - Paternal History Items: - Sibling History Items: - Review of Systems Constitutional: Reports: Fever, Weakness. Denies: Chills, Weight Change HEENT: Denies: Head Aches, Sinus Congestion, Sinus Drainage Cardiovascular: Denies: Chest Pain, Palpitations Respiratory: Reports: Cough, Pleuritic Pain, Shortness of breath upon exertion. Denies: Shortness of breath at rest, Sputum production Gastrointestinal: Denies: Abdominal Pain, Nausea, Vomiting Genitourinary: Denies: Dysuria Musculoskeletal: Denies: Joint Pain, Joint Tenderness Skin: Denies: Rash, Wounds Neurological: Denies: Focal weakness, Numbness, Tingling Psychiatric: Denies: Anxiety, Depression, Homicidal Ideations, Suicidal Ideations Hematologic/ Lymphatic: Denies: Easy Bruising, Easy Bleeding Comment: A 10 point review of systems were negative except as mentioned in the history of present illness and the other review of systems. VTE Information - Inpt Only VTE Present on Admission: No VTE Mechan Device Prophylaxis: None - Due to severe from a cytopenia VTE Pharm Prophylaxis ordered?: No Reason prophylaxis not ordered:: Medical Contraindication - Physical Exam General: Alert, Oriented x3, Cooperative, No apparent distress HEENT: Atraumatic, Normocephalic Oral: Moist Mucosa, No Gingival or Mucosal Lesions/ Ulcerations Neck: No Nodes, Thyroid Normal Size and Texture Lungs: Diminished, - - Crackles left lower lobe Cardiovascular: Regular rate, Regular Rhythm, Normal S1, Normal S2, No murmurs Abdomen: Bowel Sounds Present, Soft, Non Tender, Non-Distended Extremities: No edema, No Calf Tenderness Skin: - - Few petechiae on left upper extremity Musculoskeletal: No Tenderness to Palpation of Joints or Extremities, No Muscle Wasting Psych/Mental Status: Normal Affect, Appropriate Vital Signs Temp Pulse Resp BP Pulse Ox 36.7 C 98 16 137/66 H 97 10/17/18 10:45 10/17/18 17:14 10/17/18 17:14 10/17/18 17:14 10/17/18 17:14 Oxygen Delivery Method Room Air Weight: 91.626 kg Body Mass Index (BMI) 34.7 Laboratory Tests Past 24 Hrs 10/17/18 10/17/18 10/17/18 11:30 11:30 11:30 WBC 8.2 RBC 2.75 L Hgb 8.2 L Hct 25.0 L MCV 90.9 MCH 29.8 MCHC 32.8 RDW 19.0 H RDW Differential 58.8 H Plt Count 7 L* Neut % (Auto) Not Reportable Absolute Neuts (auto) 0.2 L Absolute Lymphs (auto) 0.82 L Total Counted 100 Neutrophils % (Manual) 2 L Lymphocytes % (Manual) 10 L Monocytes % (Manual) 2 Metamyelocytes % 1 Myelocytes % 1 H Blast Cells % 84 H* Diff Path Review Reviewed Platelet Estimate MKD DEC RBC Morphology N CHROM Anisocytosis 1+ Sodium 136 Potassium 3.8 Chloride 102 Carbon Dioxide 27.0 Anion Gap 7 BUN 17 Creatinine 0.73 Estim Creat Clear Calc 41.97 Est GFR (MDRD) Af Amer 100 Est GFR (MDRD) Non-Af 82 BUN/Creatinine Ratio 23.3 H Glucose 118 H Lactic Acid 0.9 Calcium 9.9 Total Bilirubin 1.30 H AST 20 ALT 19 Alkaline Phosphatase 89 Total Protein 7.3 Albumin 2.9 L Globulin 4.4 H Albumin/Globulin Ratio 0.7 L Urine Color Urine Clarity Urine pH Ur Specific Gates Urine Protein Urine Glucose (UA) Urine Ketones Urine Occult Blood Urine Nitrite Urine Bilirubin Urine Urobilinogen Ur Leukocyte Esterase Urine RBC Urine WBC Ur Squamous Epith Cells Calcium Oxalate Crystal Urine Bacteria Urine Mucus 10/17/18 13:00 WBC RBC Hgb Hct MCV MCH MCHC RDW RDW Differential Plt Count Neut % (Auto) Absolute Neuts (auto) Absolute Lymphs (auto) Total Counted Neutrophils % (Manual) Lymphocytes % (Manual) Monocytes % (Manual) Metamyelocytes % Myelocytes % Blast Cells % Diff Path Review Platelet Estimate RBC Morphology Anisocytosis Sodium Potassium Chloride Carbon Dioxide Anion Gap BUN Creatinine Estim Creat Clear Calc Est GFR (MDRD) Af Amer Est GFR (MDRD) Non-Af BUN/Creatinine Ratio Glucose Lactic Acid Calcium Total Bilirubin AST ALT Alkaline Phosphatase Total Protein Albumin Globulin Albumin/Globulin Ratio Urine Color Yellow Urine Clarity Clear Urine pH 5.0 Ur Specific Gates 1.025 Urine Protein 30 H Urine Glucose (UA) Normal Urine Ketones 5 H Urine Occult Blood 10 H Urine Nitrite Negative Urine Bilirubin Negative Urine Urobilinogen 1 H Ur Leukocyte Esterase 25 H Urine RBC 0-5 SEEN Urine WBC 0-5 SEEN Ur Squamous Epith Cells 0-5 SEEN Calcium Oxalate Crystal 1+ Urine Bacteria 1+ Urine Mucus 0 SEEN Assessment/Plan Patient seen and examined independently. Data reviewed. I agree with the above note by the physician fitness assistant. 1. Sepsis Present on arrival Secondary to neutropenic fever and pneumonia 2. Neutropenic fever Patient will be on meropenem and vancomycin Follow-up cultures Oncology consult 3. Left lower lobe pneumonia unclear type check Cx and Ag pulm toilet 4. thrombocytopenia less than 10k, will transfuse 5. DVT proph: mechanical andchemical contraindicated given thrombocytopenia. Code Visit Inpatient E&M: 52542 Init Hosp L3
--- NOTE | 2018-10-17 16:30 | HP.PCM_ITS ---
<Charan Garnica - Last Filed: 10/17/18 16:26> Problem List (1) Neutropenic fever Status: Acute (2) HCAP (healthcare-associated pneumonia) Status: Acute (3) Sepsis Status: Acute (4) AML (acute myeloblastic leukemia) Status: Chronic (5) Obesity Status: Chronic History of Present Illness Date of Admission: 10/17/18 Chief Complaint: fever The patient is a 73 year old F recently admitted to the hospital with neutropenic fever, treated with vanc and tacos, transitioned oral levaquin and augmentin, diascharged 2 days prior, who presents to the ER with recurrent fever. She has a hx of AML for which she is treated by Dr. Knapp with chemotherapy, last round 2 weeks prior, with more planned in October. Yesterday and today she had fevers as high as 102.6 last night 101.8 this AM. She has taken tylenol, currently not febrile in the ER. She c/o nonproductive cough, no hemoptysis, with some left lower rib pain on coughing, and is SOB with exertion. She was somewhat dizzy this AM. She has no chills or night sweats. She has some diarrhea and nausea, no abdominal pain. No dysuria. On last admission she had gram positive rods in her sputum and staph epi in her urine. She appears to have left lower lobe pna on CXR and CT here, and on CT a RUL nodular density. [] Past Medical History Past Medical History (Chronic Problems): Chronic Problems AML (acute myeloblastic leukemia) (Chronic) HTN (hypertension) (Chronic) Obesity (Chronic) Allergies No Known Allergies Allergy (Verified 10/11/18 22:58) Home Medications: Ambulatory Orders Medication Instructions Recorded Acyclovir 400 mg PO BID 10/11/18 Ondansetron [Zofran] 8 mg PO Q8H PRN PRN 10/11/18 Amox/Clavulanate Tablet [Augmentin 875 mg PO BIDCM #14 tablet 10/15/18 Tablet] levoFLOXacin tablet [Levaquin 500 mg PO DAILY 10/17/18 tablet] Surgical History: no surgical history Psychiatric History: No pertinent psych hx 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 Paternal History Items: - - Father with history of MO at age 43. Sibling History Items: - - Sister with a history of lung cancer. Review of Systems Constitutional: Reports: Fever, Weakness. Denies: Chills, Weight Change HEENT: Denies: Head Aches, Sinus Congestion, Sinus Drainage Cardiovascular: Denies: Chest Pain, Palpitations Respiratory: Reports: Cough, Pleuritic Pain, Shortness of breath upon exertion. Denies: Shortness of breath at rest, Sputum production Gastrointestinal: Denies: Abdominal Pain, Nausea, Vomiting Genitourinary: Denies: Dysuria Musculoskeletal: Denies: Joint Pain, Joint Tenderness Skin: Denies: Rash, Wounds Neurological: Denies: Numbness, Tingling, Focal weakness Psychiatric: Denies: Anxiety, Depression, Homicidal Ideations, Suicidal Ideations Hematologic/ Lymphatic: Denies: Easy Bruising, Easy Bleeding VTE Information - Inpt Only VTE Present on Admission: No VTE Mechan Device Prophylaxis: SCD's VTE Pharm Prophylaxis ordered?: No Patient Problems: Active and Suspected Problems HCAP (healthcare-associated pneumonia) (Acute) - Physical Exam General: Alert, Oriented x3, Cooperative HEENT: Atraumatic, PERRLA, EOMI, Normocephalic Neck: Supple, No JVD, Negative Carotid Bruits Lungs: Diminished, Rales - faint LLL Cardiovascular: Regular rate, No murmurs Abdomen: Bowel Sounds Present, Soft, Non Tender Extremities: No edema, Capillary Refill Less than 3 Seconds Skin: No rashes, No breakdown Musculoskeletal: No Tenderness to Palpation of Joints or Extremities Neurological: Cranial nerves II-XII grossly intact Psych/Mental Status: Normal Affect, Appropriate, Alert and oriented to time, place, person, mood and affect Vital Signs Temp Pulse Resp BP Pulse Ox 98.0 F 94 16 107/56 L 94 10/17/18 10:45 10/17/18 15:57 10/17/18 15:57 10/17/18 13:30 10/17/18 15:57 Oxygen Delivery Method Room Air Weight: 202 lb Body Mass Index (BMI) 34.7 Laboratory Tests Past 24 Hrs 10/17/18 10/17/18 10/17/18 11:30 11:30 11:30 WBC 8.2 RBC 2.75 L Hgb 8.2 L Hct 25.0 L MCV 90.9 MCH 29.8 MCHC 32.8 RDW 19.0 H RDW Differential 58.8 H Plt Count 7 L* Neut % (Auto) Not Reportable Absolute Neuts (auto) 0.2 L Absolute Lymphs (auto) 0.82 L Total Counted 100 Neutrophils % (Manual) 2 L Lymphocytes % (Manual) 10 L Monocytes % (Manual) 2 Metamyelocytes % 1 Myelocytes % 1 H Blast Cells % 84 H* Diff Path Review Reviewed Platelet Estimate MKD DEC RBC Morphology N CHROM Anisocytosis 1+ Sodium 136 Potassium 3.8 Chloride 102 Carbon Dioxide 27.0 Anion Gap 7 BUN 17 Creatinine 0.73 Estim Creat Clear Calc 41.97 Est GFR (MDRD) Af Amer 100 Est GFR (MDRD) Non-Af 82 BUN/Creatinine Ratio 23.3 H Glucose 118 H Lactic Acid 0.9 Calcium 9.9 Total Bilirubin 1.30 H AST 20 ALT 19 Alkaline Phosphatase 89 Total Protein 7.3 Albumin 2.9 L Globulin 4.4 H Albumin/Globulin Ratio 0.7 L Urine Color Urine Clarity Urine pH Ur Specific [place] Urine Protein Urine Glucose (UA) Urine Ketones Urine Occult Blood Urine Nitrite Urine Bilirubin Urine Urobilinogen Ur Leukocyte Esterase Urine RBC Urine WBC Ur Squamous Epith Cells Calcium Oxalate Crystal Urine Bacteria Urine Mucus 10/17/18 13:00 WBC RBC Hgb Hct MCV MCH MCHC RDW RDW Differential Plt Count Neut % (Auto) Absolute Neuts (auto) Absolute Lymphs (auto) Total Counted Neutrophils % (Manual) Lymphocytes % (Manual) Monocytes % (Manual) Metamyelocytes % Myelocytes % Blast Cells % Diff Path Review Platelet Estimate RBC Morphology Anisocytosis Sodium Potassium Chloride Carbon Dioxide Anion Gap BUN Creatinine Estim Creat Clear Calc Est GFR (MDRD) Af Amer Est GFR (MDRD) Non-Af BUN/Creatinine Ratio Glucose Lactic Acid Calcium Total Bilirubin AST ALT Alkaline Phosphatase Total Protein Albumin Globulin Albumin/Globulin Ratio Urine Color Yellow Urine Clarity Clear Urine pH 5.0 Ur Specific [place] 1.025 Urine Protein 30 H Urine Glucose (UA) Normal Urine Ketones 5 H Urine Occult Blood 10 H Urine Nitrite Negative Urine Bilirubin Negative Urine Urobilinogen 1 H Ur Leukocyte Esterase 25 H Urine RBC 0-5 SEEN Urine WBC 0-5 SEEN Ur Squamous Epith Cells 0-5 SEEN Calcium Oxalate Crystal 1+ Urine Bacteria 1+ Urine Mucus 0 SEEN Assessment/Plan All Active Problems Neutropenic fever (Acute) Sepsis (Acute) Pancytopenia (Acute) HCAP (healthcare-associated pneumonia) (Acute) 1. Sepsis 2/2 Neutropenic fever 2/2 HCAP - Vanc/Tacos. Pulm consult. Bronch saturday. Lactate neg. Reculture blood/sputum, obtain urine antigens. UA borderline. Previous resp culture with gram positive cocci and rods, urine with staph epi. She is not hypoxic at rest. Sepsis criteria met with pna present, decreased WBCs and tachycardia. CXR with LLL Pna CT chest with LLL pna, RUL nodular density 2. Pancytopenia 2/2 cancer/chemo, AML - consult Dr. Knapp. Platelets are of particular concern, but this is about what they were last admission. No bleeding/hemoptysis noted. Last chemo 2 weeks prior, next round Oct 27. DVT ppx: SCDs, severely thrombocytopenic. This patient was seen by Charan Garnica PA-C under the supervision of Dr. Frankel. <Luis Frankel - Last Filed: 10/17/18 17:24> Problem List (1) Neutropenic fever Status: Acute History of Present Illness The patient is a 73 year old F just discharged from the the with pneumonia. Presents with 1 day history of fever. Patient has a temperature of 101.8 on the as well as today. Patient advised to go to the emergency room by her. Patient had a CAT scan that showed a left lower lobe infiltrate essentially unchanged from previous. As recommendation by oncology the patient be admitted started on vancomycin and meropenem and have pulmonary see her for a bronchoscopy. [] Past Medical History Allergies No Known Allergies Allergy (Verified 10/11/18 22:58) Smoking Status: Never smoker Tobacco Use: Non-smoker Alcohol: None Drugs: None - *Family History Maternal History Items: - Paternal History Items: - Sibling History Items: - Review of Systems Constitutional: Reports: Fever, Weakness. Denies: Chills, Weight Change HEENT: Denies: Head Aches, Sinus Congestion, Sinus Drainage Cardiovascular: Denies: Chest Pain, Palpitations Respiratory: Reports: Cough, Pleuritic Pain, Shortness of breath upon exertion. Denies: Shortness of breath at rest, Sputum production Gastrointestinal: Denies: Abdominal Pain, Nausea, Vomiting Genitourinary: Denies: Dysuria Musculoskeletal: Denies: Joint Pain, Joint Tenderness Skin: Denies: Rash, Wounds Neurological: Denies: Focal weakness, Numbness, Tingling Psychiatric: Denies: Anxiety, Depression, Homicidal Ideations, Suicidal Ideations Hematologic/ Lymphatic: Denies: Easy Bruising, Easy Bleeding Comment: A 10 point review of systems were negative except as mentioned in the history of present illness and the other review of systems. VTE Information - Inpt Only VTE Present on Admission: No VTE Mechan Device Prophylaxis: None - Due to severe from a cytopenia VTE Pharm Prophylaxis ordered?: No Reason prophylaxis not ordered:: Medical Contraindication - Physical Exam General: Alert, Oriented x3, Cooperative, No apparent distress HEENT: Atraumatic, Normocephalic Oral: Moist Mucosa, No Gingival or Mucosal Lesions/ Ulcerations Neck: No Nodes, Thyroid Normal Size and Texture Lungs: Diminished, - - Crackles left lower lobe Cardiovascular: Regular rate, Regular Rhythm, Normal S1, Normal S2, No murmurs Abdomen: Bowel Sounds Present, Soft, Non Tender, Non-Distended Extremities: No edema, No Calf Tenderness Skin: - - Few petechiae on left upper extremity Musculoskeletal: No Tenderness to Palpation of Joints or Extremities, No Muscle Wasting Psych/Mental Status: Normal Affect, Appropriate Vital Signs Temp Pulse Resp BP Pulse Ox 36.7 C 98 16 137/66 H 97 10/17/18 10:45 10/17/18 17:14 10/17/18 17:14 10/17/18 17:14 10/17/18 17:14 Oxygen Delivery Method Room Air Weight: 91.626 kg Body Mass Index (BMI) 34.7 Laboratory Tests Past 24 Hrs 10/17/18 10/17/18 10/17/18 11:30 11:30 11:30 WBC 8.2 RBC 2.75 L Hgb 8.2 L Hct 25.0 L MCV 90.9 MCH 29.8 MCHC 32.8 RDW 19.0 H RDW Differential 58.8 H Plt Count 7 L* Neut % (Auto) Not Reportable Absolute Neuts (auto) 0.2 L Absolute Lymphs (auto) 0.82 L Total Counted 100 Neutrophils % (Manual) 2 L Lymphocytes % (Manual) 10 L Monocytes % (Manual) 2 Metamyelocytes % 1 Myelocytes % 1 H Blast Cells % 84 H* Diff Path Review Reviewed Platelet Estimate MKD DEC RBC Morphology N CHROM Anisocytosis 1+ Sodium 136 Potassium 3.8 Chloride 102 Carbon Dioxide 27.0 Anion Gap 7 BUN 17 Creatinine 0.73 Estim Creat Clear Calc 41.97 Est GFR (MDRD) Af Amer 100 Est GFR (MDRD) Non-Af 82 BUN/Creatinine Ratio 23.3 H Glucose 118 H Lactic Acid 0.9 Calcium 9.9 Total Bilirubin 1.30 H AST 20 ALT 19 Alkaline Phosphatase 89 Total Protein 7.3 Albumin 2.9 L Globulin 4.4 H Albumin/Globulin Ratio 0.7 L Urine Color Urine Clarity Urine pH Ur Specific [place] Urine Protein Urine Glucose (UA) Urine Ketones Urine Occult Blood Urine Nitrite Urine Bilirubin Urine Urobilinogen Ur Leukocyte Esterase Urine RBC Urine WBC Ur Squamous Epith Cells Calcium Oxalate Crystal Urine Bacteria Urine Mucus 10/17/18 13:00 WBC RBC Hgb Hct MCV MCH MCHC RDW RDW Differential Plt Count Neut % (Auto) Absolute Neuts (auto) Absolute Lymphs (auto) Total Counted Neutrophils % (Manual) Lymphocytes % (Manual) Monocytes % (Manual) Metamyelocytes % Myelocytes % Blast Cells % Diff Path Review Platelet Estimate RBC Morphology Anisocytosis Sodium Potassium Chloride Carbon Dioxide Anion Gap BUN Creatinine Estim Creat Clear Calc Est GFR (MDRD) Af Amer Est GFR (MDRD) Non-Af BUN/Creatinine Ratio Glucose Lactic Acid Calcium Total Bilirubin AST ALT Alkaline Phosphatase Total Protein Albumin Globulin Albumin/Globulin Ratio Urine Color Yellow Urine Clarity Clear Urine pH 5.0 Ur Specific [place] 1.025 Urine Protein 30 H Urine Glucose (UA) Normal Urine Ketones 5 H Urine Occult Blood 10 H Urine Nitrite Negative Urine Bilirubin Negative Urine Urobilinogen 1 H Ur Leukocyte Esterase 25 H Urine RBC 0-5 SEEN Urine WBC 0-5 SEEN Ur Squamous Epith Cells 0-5 SEEN Calcium Oxalate Crystal 1+ Urine Bacteria 1+ Urine Mucus 0 SEEN Assessment/Plan Patient seen and examined independently. Data reviewed. I agree with the above note by the physician golf player assistant. 1. Sepsis * Present on arrival * Secondary to neutropenic fever and pneumonia 2. Neutropenic fever * Patient will be on meropenem and vancomycin * Follow-up cultures * Oncology consult 3. Left lower lobe pneumonia * unclear type * check Cx and Ag * pulm toilet 4. thrombocytopenia * less than 10k, will transfuse 5. DVT proph: mechanical andchemical contraindicated given thrombocytopenia. Code Visit Inpatient E&M: 62203 Init Hosp L3
--- NOTE | 2018-10-17 17:29 | NURSING ---
306 NEUTROPENIC FEVER JEROMY
--- NOTE | 2018-10-17 17:31 | CM.ED ---
Social Work Note Call back from VIVIAN Wynn, stating that he is aware that the pt cannot return to the retirement. Inform that we intend to have him evaluated by crisis for potential psychiatric placement, but inquire if he has an alternative plan if they clear him. Kingsley states that he was hoping he would be admitted. Discuss that it appears he is not at his baseline and this brief writer would like for him to be admitted to, but this will be determined by crisis. Kingsley states that he needs to go to a homeless fdc if he is not admitted to a psychiatric hospital. Discussed with RN. Crisis to be called. Pt does not have an ID with him. [facility] in [place] will not accept people after 1930. Pt would need to go to [facility] - [address] [place] [address]. [phone]. RN to contact retirement requesting a med list as well as a copy of a photo ID. If pt is cleared by crisis would plan for discharge to [facility] via taxi or is available to transport. RN to notify [facility] and pt's sister of disposition at discharge. PLAN: Crisis to evaluate for psychiatric hospitalization. Felisa Roldan, BOYD, YESENIA
[2018-10-17] MEDS: 0.9% Normal Saline 1,000 ML 100 ML IV (19:09)
--- NOTE | 2018-10-17 19:46 | PHA.PHARE_ITS ---
Addendum entered and electronically signed by Kelsy Rangel 10/17/18 19:47: CORRECTION: VANCOMYCIN TROUGH SCHEDULED FOR 10/19/18 @0700, 30 MINUTES PRIOR TO DOSE DUE 10/19/18 @0730 Original Note: Consult Pharmacy has been consulted to manage selected antiobiotic: Vancomycin Type of Consult: New start Suspected Infection: Other - NEUTROPENIC FEVER / PNEUMONIA Prior Doses of Antibiotics Received/Current Regimen: NONE Labs: Sodium 136 mmol/L (136-145) 10/17/18 11:30 Potassium 3.8 mmol/L (3.5-5.1) 10/17/18 11:30 Chloride 102 mmol/L (98-107) 10/17/18 11:30 Carbon Dioxide 27.0 mmol/L (21.0-32.0) 10/17/18 11:30 Anion Gap 7 (5-15) 10/17/18 11:30 BUN 17 mg/dL (7-18) 10/17/18 11:30 Creatinine 0.73 mg/dL (0.55-1.02) 10/17/18 11:30 Est GFR (MDRD) Af Amer 100 mL/min (>60) 10/17/18 11:30 Est GFR (MDRD) Non-Af 82 mL/min (>60) 10/17/18 11:30 BUN/Creatinine Ratio 23.3 RATIO (10-20) H 10/17/18 11:30 Glucose 118 mg/dL (74-106) H 10/17/18 11:30 Weight used for dosin.6 kg Estimated Creatinine Clearance: 42ML/MIN Goal Trough: 15-20 mcg/mL Pharmacy Plan for Drug Dosing: PLAN/RECOMMENDATIONS 1. Vancomycin initial dose 1500mg IV x1 10/17/18 @1930 2. Vancomycin 750mg IV Q12hrs to start 10/18/18 @0730 3. Trough scheduled 10/19/18 @0600 prior to 4th total dose of vancomycin per protocol 4. Pharmacy Service will continue to monitor and adjust dosing as required.
[2018-10-17] MEDS: Ipratropium/Albuterol Sulfate 3 ML AMPUL.NEB INHALATION (20:00)
[2018-10-17] MEDS: 0.9% NaCl Peripheral Flush Adult/Peds IV (22:04)
[2018-10-17] MEDS: Acyclovir 200 MG Capsule 400 MG PO (22:04)
[2018-10-17] MEDS: Acetaminophen 325 MG Tablet 650 MG PO (23:21)
[2018-10-18] VITALS (11 sets, daily range): BP systolic 120–149; BP diastolic 60–78; PULSE 80–110; RESP 16–18; TEMP 36.8–37.5; O2SAT 92–95
[2018-10-18 07:56] LABS: Hematocrit 23.1 % (37-47); Hemoglobin 7.5 g/dl (12.0-15.0); Mean Corp Hgb Conc 32.5 g/gl (32-36); Mean Corpuscular Hgb 29.6 pg (27.0-32.0); Mean Corpuscular Volume 91.3 fL (81-99); Platelet Count 3 K/mm3 (150-450); RBC Distribution Width SD 59.5 fl (35.1-43.9); Red Blood Count 2.53 M/mm3 (4.2-5.4); White Blood Count 7.7 K/mm3 (4.4-11.0)
[2018-10-18 08:12] LABS: Anion Gap 8 (5-15); BUN 11 mg/dL (7-18); Calcium,Total 9.6 mg/dL (8.5-10.1); Chloride 105 mmol/L (98-107); Creatinine, Serum 0.65 mg/dL (0.55-1.02); EST Glomerular Filtration Rate 95 mL/min (>60); Est Glom Filt Rate - Afr Amer 115 mL/min (>60); Estimated Creatinine Clearance 41.97 ml/min; Glucose 110 mg/dL (74-106); Potassium 3.8 mmol/L (3.5-5.1); Sodium Level 140 mmol/L (136-145)
[2018-10-18 08:31] LABS: Differential Indicated MANUAL DIFF; POSITIVE COUNT YES; POSITIVE DIFFERENTIAL NO; POSITIVE MORPHOLOGY YES
[2018-10-18 08:34] LABS: Anisocytosis 2+; Blast 95 % (0-0); Hypochromasia 1+; Lymphocyte 5 % (19-41); Platelet Estimate MKD DEC (ADEQ); Total Cells Counted 100 (MANUAL DIFF)
[2018-10-18] MEDS: Acyclovir 200 MG Capsule 400 MG PO ×2 (09:20→21:07)
[2018-10-18] MEDS: Acetaminophen 325 MG Tablet 650 MG PO ×2 (09:24→16:40)
--- NOTE | 2018-10-18 11:00 | PCM.CONS.GEN ---
Problem List (1) Neutropenic fever Status: Acute (2) Pancytopenia Status: Acute (3) AML (acute myeloblastic leukemia) Status: Chronic Qualifiers: (4) HTN (hypertension) Status: Chronic Qualifiers: (5) Obesity Status: Chronic Qualifiers: Reason for Consult Date of Consultation: 10/18/18 Reason for Consultation: Possible bronchoscopy History of Present Illness: The patient is a 73 year old F with past medical history listed below, who presented to [facility] on 10/17/2018 secondary to fever. Patient had just been discharged 2 days prior when she was treated for neutropenic fever secondary to reported pneumonia. Patient also has a history of anemia and thrombocytosis. Patient denied any nausea, vomiting, diarrhea or dysuria on presentation. Patient did have a mild cough and reported some mild shortness of breath, but admittedly was not moving around that much. Patient denied any chest pain. Patient reported that she had developed some mild hemoptysis that she attributes to trying to get stuff up. On presentation to the emergency room, patient was noted to have a platelet count of 7000, lactate of 0.[address] of the chest showing a dense left lower lobe infiltrate and nodular density in the right upper lobe. Dr. Knapp was consulted and there was some concern for possible aspergillosis, so patient was admitted to the floor, placed on empiric antibiotics and pulmonary was consulted for a possible bronchoscopy. Patient reports she is relatively unchanged compared to admission. Patient does not believe that her previous hospitalization led to much improvement in her overall status. Patient does report some mild hemoptysis this morning, but no chest pain. Patient denies any exposure to asbestos or TB in the past. Patient does not have a significant travel history. 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 Patient denies any other environmental exposures. Patient's last chemotherapy was approximately 2 weeks ago. Review of systems otherwise negative x10 systems. Past Medical History Past Medical History (Chronic Problems): Chronic Problems AML (acute myeloblastic leukemia) (Chronic) HTN (hypertension) (Chronic) Obesity (Chronic) Allergies No Known Allergies Allergy (Verified 10/11/18 22:58) Home Medications: Ambulatory Orders Medication Instructions Recorded Acyclovir 400 mg PO BID 10/11/18 Ondansetron [Zofran] 8 mg PO Q8H PRN PRN 10/11/18 Amox/Clavulanate Tablet [Augmentin 875 mg PO BIDCM #14 tablet 10/15/18 Tablet] levoFLOXacin tablet [Levaquin 500 mg PO DAILY 10/17/18 tablet] Surgical History: no surgical history Psychiatric History: No pertinent psych hx 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 Left lower lobe infiltrate right upper lobe nodular density was appreciated. No significant emphysematous changes noted. - Physical Exam General: Alert, Oriented x3, Cooperative, No apparent distress, - - Obese. Speaking in full sentences. HEENT: Atraumatic, PERRLA, EOMI, Normocephalic, - - No scleral icterus or injection noted. Pale conjunctivae. Oral: Moist Mucosa, No Gingival or Mucosal Lesions/ Ulcerations Neck: Supple, No JVD, No Nodes, Trachea Midline Lungs: No rhonchi, No wheeze, No rales, Diminished, - - Symmetric expansion. Fair effort. Cardiovascular: Regular rate, Regular Rhythm, Normal S1, Normal S2, No murmurs, No rub noted, No Gallop Abdomen: Bowel Sounds Present, Soft, Non Tender, Non-Distended, Obese Extremities: No clubbing, No cyanosis, Edema - Trace lower extremity Skin: No rashes, No breakdown Musculoskeletal: No Tenderness to Palpation of Joints or Extremities Lymphatic: No Cervical, Supraclavicular, or Inguinal Adenopathy Neurological: Cranial nerves II-XII grossly intact, Neuro grossly intact, Motor Exam 5/5 strength throughout Psych/Mental Status: Alert and oriented to time, place, person, mood and affect Vital Signs Temp Pulse Resp BP Pulse Ox 36.8 C 99 16 135/68 H 92 10/18/18 06:11 10/18/18 06:11 10/18/18 06:11 10/18/18 06:11 10/18/18 07:10 Oxygen Delivery Method Room Air Weight: 91.626 kg Body Mass Index (BMI) 34.7 Intake and Output for Last 24 Hours 10/16/18 10/17/18 10/18/18 23:59 23:59 23:59 Intake Total 1336 / 1336 636 / 636 Output Total 700 / 700 1000 / 1000 Balance 636 / 636 -364 / -364 Microbiology Past 72 Hours 10/17/18 13:00 Urine Culture - Preliminary Urine, Clean Catch Culture exhibits no growth. 10/17/18 19:05 Streptococcus pneumoniae Antigen (M - Final Urine, Clean Catch 10/17/18 19:05 Legionella Antigen - Final Urine, Clean Catch Laboratory Tests Past 24 Hrs 10/16/18 10/16/18 10/17/18 08:25 08:25 11:30 WBC 8.2 RBC 2.75 L Hgb 8.2 L Hct 25.0 L MCV 90.9 MCH 29.8 MCHC 32.8 RDW 19.0 H RDW Differential 58.8 H Plt Count 7 L* Neut % (Auto) Not Reportable Absolute Neuts (auto) 0.2 L Absolute Lymphs (auto) 0.82 L Total Counted 100 Neutrophils % (Manual) 2 L Lymphocytes % (Manual) 10 L Monocytes % (Manual) 2 Metamyelocytes % 1 Myelocytes % 1 H Blast Cells % 84 H* Diff Path Review Reviewed Platelet Estimate MKD DEC RBC Morphology N CHROM Hypochromasia Anisocytosis 1+ Sodium Potassium Chloride Carbon Dioxide Anion Gap BUN Creatinine Estim Creat Clear Calc Est GFR (MDRD) Af Amer Est GFR (MDRD) Non-Af BUN/Creatinine Ratio Glucose Lactic Acid Calcium Total Bilirubin AST ALT Alkaline Phosphatase Total Protein Albumin Globulin Albumin/Globulin Ratio Urine Color Urine Clarity Urine pH Ur Specific [place] Urine Protein Urine Glucose (UA) Urine Ketones Urine Occult Blood Urine Nitrite Urine Bilirubin Urine Urobilinogen Ur Leukocyte Esterase Urine RBC Urine WBC Ur Squamous Epith Cells Calcium Oxalate Crystal Urine Bacteria Urine Mucus Blood Type Cancelled O NEGATIVE 10/17/18 10/17/18 10/17/18 11:30 11:30 13:00 WBC RBC Hgb Hct MCV MCH MCHC RDW RDW Differential Plt Count Neut % (Auto) Absolute Neuts (auto) Absolute Lymphs (auto) Total Counted Neutrophils % (Manual) Lymphocytes % (Manual) Monocytes % (Manual) Metamyelocytes % Myelocytes % Blast Cells % Diff Path Review Platelet Estimate RBC Morphology Hypochromasia Anisocytosis Sodium 136 Potassium 3.8 Chloride 102 Carbon Dioxide 27.0 Anion Gap 7 BUN 17 Creatinine 0.73 Estim Creat Clear Calc 41.97 Est GFR (MDRD) Af Amer 100 Est GFR (MDRD) Non-Af 82 BUN/Creatinine Ratio 23.3 H Glucose 118 H Lactic Acid 0.9 Calcium 9.9 Total Bilirubin 1.30 H AST 20 ALT 19 Alkaline Phosphatase 89 Total Protein 7.3 Albumin 2.9 L Globulin 4.4 H Albumin/Globulin Ratio 0.7 L Urine Color Yellow Urine Clarity Clear Urine pH 5.0 Ur Specific [place] 1.025 Urine Protein 30 H Urine Glucose (UA) Normal Urine Ketones 5 H Urine Occult Blood 10 H Urine Nitrite Negative Urine Bilirubin Negative Urine Urobilinogen 1 H Ur Leukocyte Esterase 25 H Urine RBC 0-5 SEEN Urine WBC 0-5 SEEN Ur Squamous Epith Cells 0-5 SEEN Calcium Oxalate Crystal 1+ Urine Bacteria 1+ Urine Mucus 0 SEEN Blood Type 10/18/18 10/18/18 06:15 06:15 WBC 7.7 RBC 2.53 L Hgb 7.5 L Hct 23.1 L MCV 91.3 MCH 29.6 MCHC 32.5 RDW 19.0 H RDW Differential 59.5 H Plt Count 3 L* Neut % (Auto) Not Reportable Absolute Neuts (auto) 0.0 L Absolute Lymphs (auto) 0.40 L Total Counted 100 Neutrophils % (Manual) Lymphocytes % (Manual) 5 L Monocytes % (Manual) Metamyelocytes % Myelocytes % Blast Cells % 95 H* Diff Path Review May foll Platelet Estimate MKD DEC RBC Morphology Hypochromasia 1+ Anisocytosis 2+ Sodium 140 Potassium 3.8 Chloride 105 Carbon Dioxide 27.0 Anion Gap 8 BUN 11 Creatinine 0.65 Estim Creat Clear Calc 41.97 Est GFR (MDRD) Af Amer 115 Est GFR (MDRD) Non-Af 95 BUN/Creatinine Ratio 17.0 Glucose 110 H Lactic Acid Calcium 9.6 Total Bilirubin AST ALT Alkaline Phosphatase Total Protein Albumin Globulin Albumin/Globulin Ratio Urine Color Urine Clarity Urine pH Ur Specific [place] Urine Protein Urine Glucose (UA) Urine Ketones Urine Occult Blood Urine Nitrite Urine Bilirubin Urine Urobilinogen Ur Leukocyte Esterase Urine RBC Urine WBC Ur Squamous Epith Cells Calcium Oxalate Crystal Urine Bacteria Urine Mucus Blood Type Clinical Impression(s) from Imaging Studies Chest X-Ray 10/17/18 11:12 IMPRESSION: Persistent left lower lobe infiltrate with blunting of the left costophrenic angle. There has been improvement as compared to prior study. Electronically Signed: Bobby Birmingham MD at 12:19 EST Tel [phone], Service support , Chest CT 10/17/18 13:55 IMPRESSION: Dense infiltration in the left lower lobe with a small left pleural effusion. Minimal atelectasis and/or scarring at the right lung base. 1.8 cm x 1.9 cm irregular nodular density in the right upper lobe. Follow-up is recommended. Electronically Signed: Bobby Birmingham MD at 14:58 EST Tel [phone], Service support , Assessment/Plan All Active Problems Neutropenic fever (Acute) Sepsis (Acute) Pancytopenia (Acute) HCAP (healthcare-associated pneumonia) (Acute) RECOMMENDATIONS: 1. Continue IV antibiotics 2. Await faith cultures 3. Possible bronchoscopy on Saturday 4. Attempt to platelet count of 30,000 5. Await oncology recommendations IMPRESSIONS: 1. Neutropenic fever with lung infiltrates Some concern for aspergillosis leading to neutropenic fever. Patient does have significant pancytopenia with blasts. Doubt pleural effusion is large enough for thoracentesis, even diagnostic. Bronchoscopy would be an option, but typically platelet counts should be higher than 30,000 to limit bleeding complications. This can be limited by using an oral approach. Risks and benefits were reviewed with the patient and she is agreeable to moving forward with bronchoscopy if necessary. Continue IV antibiotics for now. Await oncology recommendations. 2. AML/advanced age/pancytopenia/recent chemotherapy Complicates care, management, recovery and prognosis. Transfusions per oncology. Given the amount of platelets that would be required to get 30,000, Lasix may be necessary. Code Visit Inpatient E&M: 60651 Init Hosp L3
--- NOTE | 2018-10-18 11:14 | CON.PCM_ITS ---
Problem List (1) Neutropenic fever Status: Acute (2) Pancytopenia Status: Acute (3) AML (acute myeloblastic leukemia) Status: Chronic Qualifiers: (4) HTN (hypertension) Status: Chronic Qualifiers: (5) Obesity Status: Chronic Qualifiers: Reason for Consult Date of Consultation: 10/18/18 Reason for Consultation: Possible bronchoscopy History of Present Illness: The patient is a 73 year old F with past medical history listed below, who presented to [facility] on 10/17/2018 secondary to fever. Patient had just been discharged 2 days prior when she was treated for neutropenic fever secondary to reported pneumonia. Patient also has a history of anemia and thrombocytosis. Patient denied any nausea, vomiting, diarrhea or dysuria on presentation. Patient did have a mild cough and reported some mild shortness of breath, but admittedly was not moving around that much. Patient denied any chest pain. Patient reported that she had developed some mild hemoptysis that she attributes to trying to get stuff up. On presentation to the emergency room, patient was noted to have a platelet count of 7000, lactate of 0.[address] of the chest showing a dense left lower lobe infiltrate and nodular density in the right upper lobe. Dr. Knapp was consulted and there was some concern for possible aspergillosis, so patient was admitted to the floor, placed on empiric antibiotics and pulmonary was consulted for a possible bronchoscopy. Patient reports she is relatively unchanged compared to admission. Patient does not believe that her previous hospitalization led to much improvement in her overall status. Patient does report some mild hemoptysis this morning, but no chest pain. Patient denies any exposure to asbestos or TB in the past. Patient does not have a significant travel history. 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 Patient denies any other environmental exposures. Patient's last c hemotherapy was approximately 2 weeks ago. Review of systems otherwise negative x10 systems. 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 Left lower lobe infiltrate right upper lobe nodular density was appreciated. No significant emphysematous changes noted. - Physical Exam General: Alert, Oriented x3, Cooperative, No apparent distress, - - Obese. Speaking in full sentences. HEENT: Atraumatic, PERRLA, EOMI, Normocephalic, - - No scleral icterus or injection noted. Pale conjunctivae. Oral: Moist Mucosa, No Gingival or Mucosal Lesions/ Ulcerations Neck: Supple, No JVD, No Nodes, Trachea Midline Lungs: No rhonchi, No wheeze, No rales, Diminished, - - Symmetric expansion. Fair effort. Cardiovascular: Regular rate, Regular Rhythm, Normal S1, Normal S2, No murmurs, No rub noted, No Gallop Abdomen: Bowel Sounds Present, Soft, Non Tender, Non-Distended, Obese Extremities: No clubbing, No cyanosis, Edema - Trace lower extremity Skin: No rashes, No breakdown Musculoskeletal: No Tenderness to Palpation of Joints or Extremities Lymphatic: No Cervical, Supraclavicular, or Inguinal Adenopathy Neurological: Cranial nerves II-XII grossly intact, Neuro grossly intact, Motor Exam 5/5 strength throughout Psych/Mental Status: Alert and oriented to time, place, person, mood and affect Vital Signs Temp Pulse Resp BP Pulse Ox 36.8 C 99 16 135/68 H 92 10/18/18 06:11 10/18/18 06:11 10/18/18 06:11 10/18/18 06:11 10/18/18 07:10 Oxygen Delivery Method Room Air Weight: 91.626 kg Body Mass Index (BMI) 34.7 Intake and Output for Last 24 Hours 10/16/18 10/17/18 10/18/18 23:59 23:59 23:59 Intake Total 1336 / 1336 636 / 636 Output Total 700 / 700 1000 / 1000 Balance 636 / 636 -364 / -364 Microbiology Past 72 Hours 10/17/18 13:00 Urine Culture - Preliminary Urine, Clean Catch Culture exhibits no growth. 10/17/18 19:05 Streptococcus pneumoniae Antigen (M - Final Urine, Clean Catch 10/17/18 19:05 Legionella Antigen - Final Urine, Clean Catch Laboratory Tests Past 24 Hrs 10/16/18 10/16/18 10/17/18 08:25 08:25 11:30 WBC 8.2 RBC 2.75 L Hgb 8.2 L Hct 25.0 L MCV 90.9 MCH 29.8 MCHC 32.8 RDW 19.0 H RDW Differential 58.8 H Plt Count 7 L* Neut % (Auto) Not Reportable Absolute Neuts (auto) 0.2 L Absolute Lymphs (auto) 0.82 L Total Counted 100 Neutrophils % (Manual) 2 L Lymphocytes % (Manual) 10 L Monocytes % (Manual) 2 Metamyelocytes % 1 Myelocytes % 1 H Blast Cells % 84 H* Diff Path Review Reviewed Platelet Estimate MKD DEC RBC Morphology N CHROM Hypochromasia Anisocytosis 1+ Sodium Potassium Chloride Carbon Dioxide Anion Gap BUN Creatinine Estim Creat Clear Calc Est GFR (MDRD) Af Amer Est GFR (MDRD) Non-Af BUN/Creatinine Ratio Glucose Lactic Acid Calcium Total Bilirubin AST ALT Alkaline Phosphatase Total Protein Albumin Globulin Albumin/Globulin Ratio Urine Color Urine Clarity Urine pH Ur Specific [place] Urine Protein Urine Glucose (UA) Urine Ketones Urine Occult Blood Urine Nitrite Urine Bilirubin Urine Urobilinogen Ur Leukocyte Esterase Urine RBC Urine WBC Ur Squamous Epith Cells Calcium Oxalate Crystal Urine Bacteria Urine Mucus Blood Type Cancelled O NEGATIVE 10/17/18 10/17/18 10/17/18 11:30 11:30 13:00 WBC RBC Hgb Hct MCV MCH MCHC RDW RDW Differential Plt Count Neut % (Auto) Absolute Neuts (auto) Absolute Lymphs (auto) Total Counted Neutrophils % (Manual) Lymphocytes % (Manual) Monocytes % (Manual) Metamyelocytes % Myelocytes % Blast Cells % Diff Path Review Platelet Estimate RBC Morphology Hypochromasia Anisocytosis Sodium 136 Potassium 3.8 Chloride 102 Carbon Dioxide 27.0 Anion Gap 7 BUN 17 Creatinine 0.73 Estim Creat Clear Calc 41.97 Est GFR (MDRD) Af Amer 100 Est GFR (MDRD) Non-Af 82 BUN/Creatinine Ratio 23.3 H Glucose 118 H Lactic Acid 0.9 Calcium 9.9 Total Bilirubin 1.30 H AST 20 ALT 19 Alkaline Phosphatase 89 Total Protein 7.3 Albumin 2.9 L Globulin 4.4 H Albumin/Globulin Ratio 0.7 L Urine Color Yellow Urine Clarity Clear Urine pH 5.0 Ur Specific [place] 1.025 Urine Protein 30 H Urine Glucose (UA) Normal Urine Ketones 5 H Urine Occult Blood 10 H Urine Nitrite Negative Urine Bilirubin Negative Urine Urobilinogen 1 H Ur Leukocyte Esterase 25 H Urine RBC 0-5 SEEN Urine WBC 0-5 SEEN Ur Squamous Epith Cells 0-5 SEEN Calcium Oxalate Crystal 1+ Urine Bacteria 1+ Urine Mucus 0 SEEN Blood Type 10/18/18 10/18/18 06:15 06:15 WBC 7.7 RBC 2.53 L Hgb 7.5 L Hct 23.1 L MCV 91.3 MCH 29.6 MCHC 32.5 RDW 19.0 H RDW Differential 59.5 H Plt Count 3 L* Neut % (Auto) Not Reportable Absolute Neuts (auto) 0.0 L Absolute Lymphs (auto) 0.40 L Total Counted 100 Neutrophils % (Manual) Lymphocytes % (Manual) 5 L Monocytes % (Manual) Metamyelocytes % Myelocytes % Blast Cells % 95 H* Diff Path Review May foll Platelet Estimate MKD DEC RBC Morphology Hypochromasia 1+ Anisocytosis 2+ Sodium 140 Potassium 3.8 Chloride 105 Carbon Dioxide 27.0 Anion Gap 8 BUN 11 Creatinine 0.65 Estim Creat Clear Calc 41.97 Est GFR (MDRD) Af Amer 115 Est GFR (MDRD) Non-Af 95 BUN/Creatinine Ratio 17.0 Glucose 110 H Lactic Acid Calcium 9.6 Total Bilirubin AST ALT Alkaline Phosphatase Total Protein Albumin Globulin Albumin/Globulin Ratio Urine Color Urine Clarity Urine pH Ur Specific [place] Urine Protein Urine Glucose (UA) Urine Ketones Urine Occult Blood Urine Nitrite Urine Bilirubin Urine Urobilinogen Ur Leukocyte Esterase Urine RBC Urine WBC Ur Squamous Epith Cells Calcium Oxalate Crystal Urine Bacteria Urine Mucus Blood Type Clinical Impression(s) from Imaging Studies Chest X-Ray 10/17/18 11:12 IMPRESSION: Persistent left lower lobe infiltrate with blunting of the left costophrenic angle. There has been improvement as compared to prior study. Electronically Signed: Bobby Birmingham MD at 12:19 EST Tel [phone], Service support , Chest CT 10/17/18 13:55 IMPRESSION: Dense infiltration in the left lower lobe with a small left pleural effusion. Minimal atelectasis and/or scarring at the right lung base. 1.8 cm x 1.9 cm irregular nodular density in the right upper lobe. Follow-up is recommended. Electronically Signed: Bobby Birmingham MD at 14:58 EST Tel [phone], Service support , Assessment/Plan All Active Problems Neutropenic fever (Acute) Sepsis (Acute) Pancytopenia (Acute) HCAP (healthcare-associated pneumonia) (Acute) RECOMMENDATIONS: 1. Continue IV antibiotics 2. Await faith cultures 3. Possible bronchoscopy on Saturday 4. Attempt to platelet count of 30,000 5. Await oncology recommendations IMPRESSIONS: 1. Neutropenic fever with lung infiltrates Some concern for aspergillosis leading to neutropenic fever. Patient does have significant pancytopenia with blasts. Doubt pleural effusion is large enough for thoracentesis, even diagnostic. Bronchoscopy would be an option, but typically platelet counts should be higher than 30,000 to limit bleeding complications. This can be limited by using an oral approach. Risks and benefits were reviewed with the patient and she is agreeable to moving forward with bronchoscopy if necessary. Continue IV antibiotics for now. Await oncology recommendations. 2. AML/advanced age/pancytopenia/recent chemotherapy Complicates care, management, recovery and prognosis. Transfusions per oncology. Given the amount of platelets that would be required to get 30,000, Lasix may be necessary. Code Visit Inpatient E&M: 84501 Init Hosp L3
--- NOTE | 2018-10-18 13:35 | PN_ITS ---
<Charan Garnica - Last Filed: 10/18/18 13:30> Patient Problems: Active and Suspected Problems HCAP (healthcare-associated pneumonia) (Acute) Subjective: Some hemoptysis this am. Last fever 100.1 last night. Mildly tachy. Pt feels tired. + Exertional dyspnea. - Physical Exam General: Alert, Oriented x3, Cooperative HEENT: Atraumatic, PERRLA, EOMI, Normocephalic Neck: Supple, No JVD, Negative Carotid Bruits Lungs: Diminished Cardiovascular: Regular rate, No murmurs Abdomen: Bowel Sounds Present, Soft, Non Tender Extremities: No edema, Capillary Refill Less than 3 Seconds Skin: No rashes, No breakdown Musculoskeletal: No Tenderness to Palpation of Joints or Extremities Neurological: Cranial nerves II-XII grossly intact Psych/Mental Status: Normal Affect, Appropriate, Alert and oriented to time, place, person, mood and affect Vital Signs Temp Pulse Resp BP Pulse Ox 98.8 F 100 18 134/60 H 93 10/18/18 12:11 10/18/18 12:11 10/18/18 12:11 10/18/18 12:11 10/18/18 12:11 Oxygen Delivery Method Room Air Weight: 202 lb Body Mass Index (BMI) 34.7 Intake and Output for Last 24 Hours 10/16/18 10/17/18 10/18/18 23:59 23:59 23:59 Intake Total 1336 / 1336 636 / 636 Output Total 700 / 700 1000 / 1000 Balance 636 / 636 -364 / -364 Microbiology Past 72 Hours 10/17/18 13:00 Urine Culture - Preliminary Urine, Clean Catch Culture exhibits no growth. 10/17/18 19:05 Streptococcus pneumoniae Antigen (M - Final Urine, Clean Catch 10/17/18 19:05 Legionella Antigen - Final Urine, Clean Catch Laboratory Tests Past 24 Hrs 10/16/18 10/16/18 10/17/18 08:25 08:25 11:30 WBC RBC Hgb Hct MCV MCH MCHC RDW RDW Differential Plt Count Neut % (Auto) Absolute Neuts (auto) Absolute Lymphs (auto) Total Counted Lymphocytes % (Manual) Blast Cells % Diff Path Review Reviewed Platelet Estimate Hypochromasia Anisocytosis Sodium Potassium Chloride Carbon Dioxide Anion Gap BUN Creatinine Estim Creat Clear Calc Est GFR (MDRD) Af Amer Est GFR (MDRD) Non-Af BUN/Creatinine Ratio Glucose Calcium Blood Type Cancelled O NEGATIVE 10/18/18 10/18/18 06:15 06:15 WBC 7.7 RBC 2.53 L Hgb 7.5 L Hct 23.1 L MCV 91.3 MCH 29.6 MCHC 32.5 RDW 19.0 H RDW Differential 59.5 H Plt Count 3 L* Neut % (Auto) Not Reportable Absolute Neuts (auto) 0.0 L Absolute Lymphs (auto) 0.40 L Total Counted 100 Lymphocytes % (Manual) 5 L Blast Cells % 95 H* Diff Path Review May foll Platelet Estimate MKD DEC Hypochromasia 1+ Anisocytosis 2+ Sodium 140 Potassium 3.8 Chloride 105 Carbon Dioxide 27.0 Anion Gap 8 BUN 11 Creatinine 0.65 Estim Creat Clear Calc 41.97 Est GFR (MDRD) Af Amer 115 Est GFR (MDRD) Non-Af 95 BUN/Creatinine Ratio 17.0 Glucose 110 H Calcium 9.6 Blood Type Medical Necessity - Tobacco Use Smoking Status: Never smoker Tobacco Use: Non-smoker Assessment/Plan All Active Problems Neutropenic fever (Acute) Sepsis (Acute) HCAP (healthcare-associated pneumonia) (Acute) 1. Sepsis 2/2 Neutropenic fever 2/2 HCAP - Vanc/Alexia. Pulm consult. Bronch saturday. Lactate neg. Reculture blood/sputum, obtain urine antigens. UA borderline. Previous resp culture with gram positive cocci and rods, urine with staph epi. She is not hypoxic at rest. Sepsis criteria met with pna present, decreased WBCs and tachycardia. CXR with LLL Pna CT chest with LLL pna, RUL nodular density 2. Pancytopenia 2/2 cancer/chemo, AML - consult Dr. Knapp. Platelets are of particular concern, but this is about what they were last admission. Last chemo 2 weeks prior, next round Oct 27. Blasts severely elevated. ANC 0.0. Received blood and platelets last night. Hgb and platelets have declined regardless. Will receive 1 more unit PRBC today. Pt will need at least 3 packs of platelets prior to bronchoscopy on Saturday with goal of >30k platelets. DVT ppx: SCDs, severely thrombocytopenic. This patient was seen by Charan Garnica PA-C under the supervision of Dr. Haley. <Fatmata Haley E - Last Filed: 10/18/18 14:23> - Physical Exam Vital Signs Temp Pulse Resp BP Pulse Ox 98.8 F 100 18 134/60 H 93 10/18/18 12:11 10/18/18 12:11 10/18/18 12:11 10/18/18 12:11 10/18/18 12:11 Oxygen Delivery Method Room Air Weight: 202 lb Body Mass Index (BMI) 34.7 Intake and Output for Last 24 Hours 10/16/18 10/17/18 10/18/18 23:59 23:59 23:59 Intake Total 1336 / 1336 636 / 636 Output Total 700 / 700 1000 / 1000 Balance 636 / 636 -364 / -364 Microbiology Past 72 Hours 10/17/18 13:00 Urine Culture - Preliminary Urine, Clean Catch Culture exhibits no growth. 10/17/18 19:05 Streptococcus pneumoniae Antigen (M - Final Urine, Clean Catch 10/17/18 19:05 Legionella Antigen - Final Urine, Clean Catch Laboratory Tests Past 24 Hrs 10/16/18 10/16/18 10/17/18 08:25 08:25 11:30 WBC RBC Hgb Hct MCV MCH MCHC RDW RDW Differential Plt Count Neut % (Auto) Absolute Neuts (auto) Absolute Lymphs (auto) Total Counted Lymphocytes % (Manual) Blast Cells % Diff Path Review Reviewed Platelet Estimate Hypochromasia Anisocytosis Sodium Potassium Chloride Carbon Dioxide Anion Gap BUN Creatinine Estim Creat Clear Calc Est GFR (MDRD) Af Amer Est GFR (MDRD) Non-Af BUN/Creatinine Ratio Glucose Calcium Blood Type Cancelled O NEGATIVE Antibody Screen Crossmatch 10/18/18 10/18/18 10/18/18 06:15 06:15 13:47 WBC 7.7 RBC 2.53 L Hgb 7.5 L Hct 23.1 L MCV 91.3 MCH 29.6 MCHC 32.5 RDW 19.0 H RDW Differential 59.5 H Plt Count 3 L* Neut % (Auto) Not Reportable Absolute Neuts (auto) 0.0 L Absolute Lymphs (auto) 0.40 L Total Counted 100 Lymphocytes % (Manual) 5 L Blast Cells % 95 H* Diff Path Review May foll Platelet Estimate MKD DEC Hypochromasia 1+ Anisocytosis 2+ Sodium 140 Potassium 3.8 Chloride 105 Carbon Dioxide 27.0 Anion Gap 8 BUN 11 Creatinine 0.65 Estim Creat Clear Calc 41.97 Est GFR (MDRD) Af Amer 115 Est GFR (MDRD) Non-Af 95 BUN/Creatinine Ratio 17.0 Glucose 110 H Calcium 9.6 Blood Type Pending Antibody Screen Pending Crossmatch See Detail Assessment/Plan Hospitalist note: I am seeing this patient in conjunction with Charan Garnica. I independently seen and examined the patient. Progress note above, laboratory data and imaging studies reviewed and I agree with above treatment and workup plan. Patient seen and examined. She complains of dry cough, no sputum production. She complains of exertional shortness of breath. Denies abdominal pain, nausea vomiting. She is still having spikes of low-grade fever. - Physical Exam General: Alert, Oriented x3, Cooperative, No apparent distress. HEENT: Atraumatic, PERRLA, EOMI. Neck: Supple, No JVD, Negative Carotid Bruits, Trachea Midline, Thyroid Normal. Lungs: Decreased breath sounds on the left base, impaired percussion note, rhonchi. No wheezing or rails. Cardiovascular: Regular rate, Regular Rhythm, Normal S1, Normal S2, PMI Normal. Abdomen: Bowel Sounds Present, Soft, Non Tender, Non-Distended, No Hepato- splenomegaly. Extremities: No clubbing, No cyanosis, No edema Skin: No rashes, No breakdown Neurological: Neuro grossly intact Assessment and plan: #1 febrile neutropenia: Probably secondary to healthcare associate pneumonia. Her absolute neutrophil count is 0. She is on IV antibiotics. Cultures are pending. CBC revealed 95% of blast cells. Plan to continue same treatment, blood and platelet transfusion, awaiting oncology recommendations. #2 anemia/thrombocytopenia: Secondary to chemotherapy. Hemoglobin is 7.5, normocytic anemia. No evidence of active bleeding. Plan to transfuse 1 unit of packed RBCs, repeat CBC tomorrow morning. Platelet count is 3000. No evidence of active bleeding. Plan to transfuse platelet, repeat CBC tomorrow morning. #3 healthcare associated pneumonia/sepsis: CT scan chest reviewed. Patient is on IV meropenem and vancomycin. Pneumococcal and Legionella antigen were negative. Urine culture showed no growth. Culture is pending. Plan to continue same treatment. #4 right upper lobe irregular nodule: Metastatic cancer is a possibility. Pulmonology consulted, plan for possible bronchoscopy on Saturday. #5 AML: On chemotherapy, oncology consulted. This note was generated with [employer] dictation software. It may contain incorrect words, spelling, and punctuation that were not noted in checking the note before signing. Code Visit Inpatient E&M: 95827 Subs Hosp L3
[2018-10-18] MEDS: DiphenhydrAMINE 25 MG Capsule PO ×2 (16:40→23:28)
[2018-10-19] VITALS (8 sets, daily range): BP systolic 121–161; BP diastolic 65–86; PULSE 90–120; RESP 16–20; TEMP 36.9–39.4; O2SAT 94–99
[2018-10-19] MEDS: Acetaminophen 325 MG Tablet 650 MG PO ×3 (04:33→21:21)
--- NOTE | 2018-10-19 04:48 | NURSING ---
CHECKED PT'S OXYGEN @ 91% ON RA, PLACED ON 2L O2 WITH SPO2 @ 94%.
[2018-10-19 07:13] LABS: Hematocrit 24.2 % (37-47); Hemoglobin 7.9 g/dl (12.0-15.0); Mean Corp Hgb Conc 32.6 g/gl (32-36); Mean Corpuscular Hgb 29.7 pg (27.0-32.0); RBC Distribution Width CV 18.7 % (11.6-14.6); RBC Distribution Width SD 58.1 fl (35.1-43.9); Red Blood Count 2.66 M/mm3 (4.2-5.4); White Blood Count 9.2 K/mm3 (4.4-11.0)
[2018-10-19 07:15] LABS: Differential Indicated MANUAL DIFF; POSITIVE COUNT YES; POSITIVE DIFFERENTIAL NO; POSITIVE MORPHOLOGY YES; Platelet Count 7 K/mm3 (150-450)
--- NOTE | 2018-10-19 07:33 | PCM.PROGNOTE ---
Patient Problems: Active and Suspected Problems HCAP (healthcare-associated pneumonia) (Acute) Subjective: The patient was seen and examined at the bedside this morning. Events from the last 24 hours have been reviewed. The patient remains febrile with a T-max of 39.4 ?C this morning. She remains hemodynamically stable, nonetheless. The patient remains anemic and thrombocytopenic, with a platelet count of 7000 this morning. The patient was transfused 1 unit of packed red blood cells and 2 units of platelets yesterday. The patient remains asymptomatic this morning and is resting comfortably in bed with her family at the bedside. Objective: The patient's most recent lab work, culture data and imaging studies have all been personally reviewed. Strep and urine Legionella antigens were both negative. Blood, urine and sputum cultures are pending. - Physical Exam General: Alert, Cooperative, No apparent distress HEENT: Atraumatic, PERRLA, Normocephalic Oral: No Gingival or Mucosal Lesions/ Ulcerations Neck: Supple, No Nodes, Trachea Midline Lungs: No rhonchi, No wheeze, No rales, Diminished Cardiovascular: Regular rate, Regular Rhythm, Normal S1, Normal S2, No murmurs Abdomen: Bowel Sounds Present, Soft, Non Tender Extremities: No clubbing, No cyanosis, Edema Skin: No rashes, No breakdown Musculoskeletal: No Tenderness to Palpation of Joints or Extremities Lymphatic: No Cervical, Supraclavicular, or Inguinal Adenopathy Neurological: Cranial nerves II-XII grossly intact, Neuro grossly intact Psych/Mental Status: Normal Affect, Appropriate Vital Signs Temp Pulse Resp BP Pulse Ox 38.4 C H 105 H 20 H 124/67 H 97 10/19/18 05:35 10/19/18 05:35 10/19/18 05:35 10/19/18 05:35 10/19/18 05:35 Oxygen Flow Rate (L/min) 2 Oxygen Delivery Method Nasal Cannula Weight: 202 lb Body Mass Index (BMI) 34.7 Intake and Output for Last 24 Hours 10/17/18 10/18/18 10/19/18 23:59 23:59 23:59 Intake Total 1336 / 1336 2177 / 2177 1549 / 1549 Output Total 700 / 700 1900 / 1900 1800 / 1800 Balance 636 / 636 277 / 277 -251 / -251 Microbiology Past 72 Hours 10/17/18 13:00 Urine Culture - Preliminary Urine, Clean Catch Culture exhibits no growth. 10/17/18 19:05 Streptococcus pneumoniae Antigen (M - Final Urine, Clean Catch 10/17/18 19:05 Legionella Antigen - Final Urine, Clean Catch Laboratory Tests Past 24 Hrs 10/18/18 10/18/18 10/18/18 06:15 06:15 13:47 WBC 7.7 RBC 2.53 L Hgb 7.5 L Hct 23.1 L MCV 91.3 MCH 29.6 MCHC 32.5 RDW 19.0 H RDW Differential 59.5 H Plt Count 3 L* Neut % (Auto) Not Reportable Absolute Neuts (auto) 0.0 L Absolute Lymphs (auto) 0.40 L Total Counted 100 Lymphocytes % (Manual) 5 L Blast Cells % 95 H* Diff Path Review May foll Platelet Estimate MKD DEC Hypochromasia 1+ Anisocytosis 2+ Sodium 140 Potassium 3.8 Chloride 105 Carbon Dioxide 27.0 Anion Gap 8 BUN 11 Creatinine 0.65 Estim Creat Clear Calc 41.97 Est GFR (MDRD) Af Amer 115 Est GFR (MDRD) Non-Af 95 BUN/Creatinine Ratio 17.0 Glucose 110 H Calcium 9.6 Blood Type O NEGATIVE Antibody Screen NEGATIVE Crossmatch See Detail 10/19/18 05:45 WBC 9.2 RBC 2.66 L Hgb 7.9 L Hct 24.2 L MCV 91.0 MCH 29.7 MCHC 32.6 RDW 18.7 H RDW Differential 58.1 H Plt Count 7 L* Neut % (Auto) Not Reportable Absolute Neuts (auto) Not Reportable Absolute Lymphs (auto) Total Counted Pending Lymphocytes % (Manual) Blast Cells % Diff Path Review Platelet Estimate Hypochromasia Anisocytosis Sodium Potassium Chloride Carbon Dioxide Anion Gap BUN Creatinine Estim Creat Clear Calc Est GFR (MDRD) Af Amer Est GFR (MDRD) Non-Af BUN/Creatinine Ratio Glucose Calcium Blood Type Antibody Screen Crossmatch Clinical Impression(s) from Imaging Studies Chest X-Ray 10/17/18 11:12 IMPRESSION: Persistent left lower lobe infiltrate with blunting of the left costophrenic angle. There has been improvement as compared to prior study. Electronically Signed: Bobby Birmingham MD at 12:19 EST Tel [phone], Service support , Chest CT 10/17/18 13:55 IMPRESSION: Dense infiltration in the left lower lobe with a small left pleural effusion. Minimal atelectasis and/or scarring at the right lung base. 1.8 cm x 1.9 cm irregular nodular density in the right upper lobe. Follow-up is recommended. Electronically Signed: Bobby Birmingham MD at 14:58 EST Tel [phone], Service support , Medical Necessity - Tobacco Use Smoking Status: Never smoker Tobacco Use: Non-smoker Assessment/Plan All Active Problems Neutropenic fever (Acute) Sepsis (Acute) HCAP (healthcare-associated pneumonia) (Acute) RECOMMENDATIONS: 1. Continue current supportive measures and antibiotics. 2. Bronchoscopy will not be feasible until the patient's platelet count increases. 3. Oncology evaluation is pending. 4. Transfuse platelets in an attempt to achieve a platelet count of 30,000. 5. Consider infectious diseases consultation. IMPRESSIONS: 1. Neutropenic fever with abnormal chest imaging/infiltrates Initial concern for potential aspergillosis. At this time, however, the patient's platelet count is too low and would preclude options for proceeding with bronchoscopy/BAL. Awaiting input from oncology accordingly. Can consider transfusion of platelets and attempt to achieve a count of 30,000. If this is achieved, bronchoscopy with BAL can be performed. Otherwise, we will plan to continue broad-spectrum antibiotics at this time. Consider infectious diseases consultation. 2. AML/advanced age/anemia/thrombocytopenia Complicates care, management, recovery and prognosis. Appreciate oncology input. This note was generated with [email or web address] software. It may contain incorrect words, spelling, and punctuation that were not noted in checking the note before signing. Code Visit Inpatient E&M: 44479 Subs Hosp L2
--- NOTE | 2018-10-19 07:37 | PN_ITS ---
Patient Problems: Active and Suspected Problems HCAP (healthcare-associated pneumonia) (Acute) Subjective: The patient was seen and examined at the bedside this morning. Events from the last 24 hours have been reviewed. The patient remains febrile with a T-max of 39.4 ?C this morning. She remains hemodynamically stable, nonetheless. The patient remains anemic and thrombocytopenic, with a platelet count of 7000 this morning. The patient was transfused 1 unit of packed red blood cells and 2 units of platelets yesterday. The patient remains asymptomatic this morning and is resting comfortably in bed with her family at the bedside. Objective: The patient's most recent lab work, culture data and imaging studies have all been personally reviewed. Strep and urine Legionella antigens were both negative. Blood, urine and sputum cultures are pending. - Physical Exam General: Alert, Cooperative, No apparent distress HEENT: Atraumatic, PERRLA, Normocephalic Oral: No Gingival or Mucosal Lesions/ Ulcerations Neck: Supple, No Nodes, Trachea Midline Lungs: No rhonchi, No wheeze, No rales, Diminished Cardiovascular: Regular rate, Regular Rhythm, Normal S1, Normal S2, No murmurs Abdomen: Bowel Sounds Present, Soft, Non Tender Extremities: No clubbing, No cyanosis, Edema Skin: No rashes, No breakdown Musculoskeletal: No Tenderness to Palpation of Joints or Extremities Lymphatic: No Cervical, Supraclavicular, or Inguinal Adenopathy Neurological: Cranial nerves II-XII grossly intact, Neuro grossly intact Psych/Mental Status: Normal Affect, Appropriate Vital Signs Temp Pulse Resp BP Pulse Ox 38.4 C H 105 H 20 H 124/67 H 97 10/19/18 05:35 10/19/18 05:35 10/19/18 05:35 10/19/18 05:35 10/19/18 05:35 Oxygen Flow Rate (L/min) 2 Oxygen Delivery Method Nasal Cannula Weight: 202 lb Body Mass Index (BMI) 34.7 Intake and Output for Last 24 Hours 10/17/18 10/18/18 10/19/18 23:59 23:59 23:59 Intake Total 1336 / 1336 2177 / 2177 1549 / 1549 Output Total 700 / 700 1900 / 1900 1800 / 1800 Balance 636 / 636 277 / 277 -251 / -251 Microbiology Past 72 Hours 10/17/18 13:00 Urine Culture - Preliminary Urine, Clean Catch Culture exhibits no growth. 10/17/18 19:05 Streptococcus pneumoniae Antigen (M - Final Urine, Clean Catch 10/17/18 19:05 Legionella Antigen - Final Urine, Clean Catch Laboratory Tests Past 24 Hrs 10/18/18 10/18/18 10/18/18 06:15 06:15 13:47 WBC 7.7 RBC 2.53 L Hgb 7.5 L Hct 23.1 L MCV 91.3 MCH 29.6 MCHC 32.5 RDW 19.0 H RDW Differential 59.5 H Plt Count 3 L* Neut % (Auto) Not Reportable Absolute Neuts (auto) 0.0 L Absolute Lymphs (auto) 0.40 L Total Counted 100 Lymphocytes % (Manual) 5 L Blast Cells % 95 H* Diff Path Review May foll Platelet Estimate MKD DEC Hypochromasia 1+ Anisocytosis 2+ Sodium 140 Potassium 3.8 Chloride 105 Carbon Dioxide 27.0 Anion Gap 8 BUN 11 Creatinine 0.65 Estim Creat Clear Calc 41.97 Est GFR (MDRD) Af Amer 115 Est GFR (MDRD) Non-Af 95 BUN/Creatinine Ratio 17.0 Glucose 110 H Calcium 9.6 Blood Type O NEGATIVE Antibody Screen NEGATIVE Crossmatch See Detail 10/19/18 05:45 WBC 9.2 RBC 2.66 L Hgb 7.9 L Hct 24.2 L MCV 91.0 MCH 29.7 MCHC 32.6 RDW 18.7 H RDW Differential 58.1 H Plt Count 7 L* Neut % (Auto) Not Reportable Absolute Neuts (auto) Not Reportable Absolute Lymphs (auto) Total Counted Pending Lymphocytes % (Manual) Blast Cells % Diff Path Review Platelet Estimate Hypochromasia Anisocytosis Sodium Potassium Chloride Carbon Dioxide Anion Gap BUN Creatinine Estim Creat Clear Calc Est GFR (MDRD) Af Amer Est GFR (MDRD) Non-Af BUN/Creatinine Ratio Glucose Calcium Blood Type Antibody Screen Crossmatch Clinical Impression(s) from Imaging Studies Chest X-Ray 10/17/18 11:12 IMPRESSION: Persistent left lower lobe infiltrate with blunting of the left costophrenic angle. There has been improvement as compared to prior study. Electronically Signed: Bobby Birmingham MD at 12:19 EST Tel [phone], Service support , Chest CT 10/17/18 13:55 IMPRESSION: Dense infiltration in the left lower lobe with a small left pleural effusion. Minimal atelectasis and/or scarring at the right lung base. 1.8 cm x 1.9 cm irregular nodular density in the right upper lobe. Follow-up is recommended. Electronically Signed: Bobby Birmingham MD at 14:58 EST Tel [phone], Service support , Medical Necessity - Tobacco Use Smoking Status: Never smoker Tobacco Use: Non-smoker Assessment/Plan All Active Problems Neutropenic fever (Acute) Sepsis (Acute) HCAP (healthcare-associated pneumonia) (Acute) RECOMMENDATIONS: 1. Continue current supportive measures and antibiotics. 2. Bronchoscopy will not be feasible until the patient's platelet count increases. 3. Oncology evaluation is pending. 4. Transfuse platelets in an attempt to achieve a platelet count of 30,000. 5. Consider infectious diseases consultation. IMPRESSIONS: 1. Neutropenic fever with abnormal chest imaging/infiltrates Initial concern for potential aspergillosis. At this time, however, the patient's platelet count is too low and would preclude options for proceeding with bronchoscopy/BAL. Awaiting input from oncology accordingly. Can consider transfusion of platelets and attempt to achieve a count of 30,000. If this is achieved, bronchoscopy with BAL can be performed. Otherwise, we will plan to continue broad-spectrum antibiotics at this time. Consider infectious diseases consultation. 2. AML/advanced age/anemia/thrombocytopenia Complicates care, management, recovery and prognosis. Appreciate oncology input. This note was generated with [employer] software. It may contain incorrect words, spelling, and punctuation that were not noted in checking the note before signing. Code Visit Inpatient E&M: 73461 Subs Hosp L2
[2018-10-19 07:56] LABS: Blast 59 % (0-0); Eosinophil 1 % (0-5); Lymphocyte 39 % (19-41); Neutrophil-Segmented 1 % (47-70); Nucleated Red Bld Cells,Manual 1 % (0-5); Total Cells Counted 100 (MANUAL DIFF)
[2018-10-19 07:57] LABS: Anisocytosis 1+; Platelet Estimate MKD DEC (ADEQ); Red Cell Morphology N CHROM NORMAL (NORM C&C)
[2018-10-19 09:10] LABS: Vancomycin, Trough Level 7.7 ug/mL (5.0-15.0)
[2018-10-19] MEDS: Acyclovir 200 MG Capsule 400 MG PO ×2 (09:34→21:05)
--- NOTE | 2018-10-19 09:40 | NURSING ---
vancomycin not here at this time for pt administration
--- NOTE | 2018-10-19 12:59 | PCM.PROGNOTE ---
Patient Problems: Active and Suspected Problems HCAP (healthcare-associated pneumonia) (Acute) Subjective: discussed patient's case by phone with family at their request. she remains febrile, and despite 2 cycles vidaza remains profoundly neutropenic and thrombocytopenic. blast percentage remains 80% or so. given the profound neutropenia, the apparent pneumonia, and the extremely low likelihood of a meaningful improvement in her counts in the reasonably near future makes her prognosis quite poor. all questions answered. we plan to continue supportive care for now. Jamar Mckeon MD for Dr Knapp. - Physical Exam Vital Signs Temp Pulse Resp BP Pulse Ox 98.5 F 90 18 121/65 H 98 10/19/18 09:56 10/19/18 09:56 10/19/18 09:56 10/19/18 09:56 10/19/18 09:56 Oxygen Flow Rate (L/min) 2 Oxygen Delivery Method Room Air Weight: 91.626 kg Body Mass Index (BMI) 34.7 Intake and Output for Last 24 Hours 10/17/18 10/18/18 10/19/18 23:59 23:59 23:59 Intake Total 1336 / 1336 2177 / 2177 1549 / 1549 Output Total 700 / 700 1900 / 1900 1800 / 1800 Balance 636 / 636 277 / 277 -251 / -251 Microbiology Past 72 Hours 10/18/18 23:07 Gram Stain - Final Sputum, Expectorated/Coughed 10/17/18 11:35 Blood Culture - Preliminary Blood Culture (Wb) - No Site/Description Given No growth in 48 hours. 10/17/18 11:30 Blood Culture - Preliminary Blood Culture (Wb) #2 - Anticubital Left No growth in 48 hours. 10/17/18 13:00 Urine Culture - Final Urine, Clean Catch Culture exhibits no growth. 10/17/18 19:05 Streptococcus pneumoniae Antigen (M - Final Urine, Clean Catch 10/17/18 19:05 Legionella Antigen - Final Urine, Clean Catch Laboratory Tests Past 24 Hrs 10/18/18 10/19/18 10/19/18 13:47 05:45 08:24 WBC 9.2 RBC 2.66 L Hgb 7.9 L Hct 24.2 L MCV 91.0 MCH 29.7 MCHC 32.6 RDW 18.7 H RDW Differential 58.1 H Plt Count 7 L* Neut % (Auto) Not Reportable Absolute Neuts (auto) Not Reportable Total Counted 100 Neutrophils % (Manual) 1 L Lymphocytes % (Manual) 39 Eosinophils % (Manual) 1 Blast Cells % 59 H* Nucleated RBCs/100 WBC 1 Diff Path Review May foll Platelet Estimate MKD DEC RBC Morphology N CHROM Anisocytosis 1+ Vancomycin Trough 7.7 Aspergillus flavus Ab Aspergill fumigatus Ab Aspergillus niger Ab Blood Type O NEGATIVE Antibody Screen NEGATIVE Crossmatch See Detail 10/19/18 08:24 WBC RBC Hgb Hct MCV MCH MCHC RDW RDW Differential Plt Count Neut % (Auto) Absolute Neuts (auto) Total Counted Neutrophils % (Manual) Lymphocytes % (Manual) Eosinophils % (Manual) Blast Cells % Nucleated RBCs/100 WBC Diff Path Review Platelet Estimate RBC Morphology Anisocytosis Vancomycin Trough Aspergillus flavus Ab Pending Aspergill fumigatus Ab Pending Aspergillus niger Ab Pending Blood Type Antibody Screen Crossmatch Medical Necessity - Tobacco Use Smoking Status: Never smoker Tobacco Use: Non-smoker Assessment/Plan All Active Problems Neutropenic fever (Acute) Sepsis (Acute) HCAP (healthcare-associated pneumonia) (Acute)
--- NOTE | 2018-10-19 13:32 | PN_ITS ---
<Charan Garnica - Last Filed: 10/19/18 13:22> Patient Problems: Active and Suspected Problems HCAP (healthcare-associated pneumonia) (Acute) Subjective: Pt denies SOB. She had rust colored sputum this AM - no bright red. Fevers continue. - Physical Exam General: Alert, Oriented x3, Cooperative HEENT: Atraumatic, PERRLA, EOMI, Normocephalic Neck: Supple, No JVD, Negative Carotid Bruits Lungs: Clear to auscultation, Normal air movement Cardiovascular: Regular rate, No murmurs Abdomen: Bowel Sounds Present, Soft, Non Tender Extremities: No edema, Capillary Refill Less than 3 Seconds Skin: No rashes, No breakdown Musculoskeletal: No Tenderness to Palpation of Joints or Extremities Neurological: Cranial nerves II-XII grossly intact Psych/Mental Status: Normal Affect, Appropriate, Alert and oriented to time, place, person, mood and affect Vital Signs Temp Pulse Resp BP Pulse Ox 98.5 F 90 18 121/65 H 98 10/19/18 09:56 10/19/18 09:56 10/19/18 09:56 10/19/18 09:56 10/19/18 09:56 Oxygen Flow Rate (L/min) 2 Oxygen Delivery Method Room Air Weight: 202 lb Body Mass Index (BMI) 34.7 Intake and Output for Last 24 Hours 10/17/18 10/18/18 10/19/18 23:59 23:59 23:59 Intake Total 1336 / 1336 2177 / 2177 1549 / 1549 Output Total 700 / 700 1900 / 1900 1800 / 1800 Balance 636 / 636 277 / 277 -251 / -251 Microbiology Past 72 Hours 10/18/18 23:07 Gram Stain - Final Sputum, Expectorated/Coughed 10/17/18 11:35 Blood Culture - Preliminary Blood Culture (Wb) - No Site/Description Given No growth in 48 hours. 10/17/18 11:30 Blood Culture - Preliminary Blood Culture (Wb) #2 - Anticubital Left No growth in 48 hours. 10/17/18 13:00 Urine Culture - Final Urine, Clean Catch Culture exhibits no growth. 10/17/18 19:05 Streptococcus pneumoniae Antigen (M - Final Urine, Clean Catch 10/17/18 19:05 Legionella Antigen - Final Urine, Clean Catch Laboratory Tests Past 24 Hrs 10/18/18 10/19/18 10/19/18 13:47 05:45 08:24 WBC 9.2 RBC 2.66 L Hgb 7.9 L Hct 24.2 L MCV 91.0 MCH 29.7 MCHC 32.6 RDW 18.7 H RDW Differential 58.1 H Plt Count 7 L* Neut % (Auto) Not Reportable Absolute Neuts (auto) Not Reportable Total Counted 100 Neutrophils % (Manual) 1 L Lymphocytes % (Manual) 39 Eosinophils % (Manual) 1 Blast Cells % 59 H* Nucleated RBCs/100 WBC 1 Diff Path Review May foll Platelet Estimate MKD DEC RBC Morphology N CHROM Anisocytosis 1+ Vancomycin Trough 7.7 Aspergillus flavus Ab Aspergill fumigatus Ab Aspergillus niger Ab Blood Type O NEGATIVE Antibody Screen NEGATIVE Crossmatch See Detail 10/19/18 08:24 WBC RBC Hgb Hct MCV MCH MCHC RDW RDW Differential Plt Count Neut % (Auto) Absolute Neuts (auto) Total Counted Neutrophils % (Manual) Lymphocytes % (Manual) Eosinophils % (Manual) Blast Cells % Nucleated RBCs/100 WBC Diff Path Review Platelet Estimate RBC Morphology Anisocytosis Vancomycin Trough Aspergillus flavus Ab Pending Aspergill fumigatus Ab Pending Aspergillus niger Ab Pending Blood Type Antibody Screen Crossmatch Medical Necessity - Tobacco Use Smoking Status: Never smoker Tobacco Use: Non-smoker Assessment/Plan All Active Problems Neutropenic fever (Acute) Sepsis (Acute) HCAP (healthcare-associated pneumonia) (Acute) 1. Sepsis 2/2 Neutropenic fever 2/2 HCAP - Vanc/Alexia. Pulm following. Will not be able to have bronch due to persistently low platelets. Sputum pending. Urine antigens neg, resp panel neg. Blood cultures negative so far. CXR with LLL Pna CT chest with LLL pna, RUL nodular density 2. Pancytopenia 2/2 cancer/chemo, AML - consult Dr. Knapp. Platelets are of particular concern, but this is about what they were last admission. Last chemo 2 weeks prior, next round Oct 27. Blasts severely elevated. ANC 0.0. - Received one additional unit blood yesterday, 2 more packs of platelets. Little improvement. DVT ppx: SCDs, severely thrombocytopenic. DC planning: Prognosis is poor, will wait for Dr. Knapp to evaluate patient mumtaz orrow, palliative / hospice appropriate. This patient was seen by Charan Garnica PA-C under the supervision of Dr. Haley. <TeraFatmata E - Last Filed: 10/19/18 14:13> - Physical Exam Vital Signs Temp Pulse Resp BP Pulse Ox 98.5 F 90 18 121/65 H 98 10/19/18 09:56 10/19/18 09:56 10/19/18 09:56 10/19/18 09:56 10/19/18 09:56 Oxygen Flow Rate (L/min) 2 Oxygen Delivery Method Room Air Weight: 202 lb Body Mass Index (BMI) 34.7 Intake and Output for Last 24 Hours 10/17/18 10/18/18 10/19/18 23:59 23:59 23:59 Intake Total 1336 / 1336 2177 / 2177 1549 / 1549 Output Total 700 / 700 1900 / 1900 1800 / 1800 Balance 636 / 636 277 / 277 -251 / -251 Microbiology Past 72 Hours 10/18/18 23:07 Gram Stain - Final Sputum, Expectorated/Coughed 10/17/18 11:35 Blood Culture - Preliminary Blood Culture (Wb) - No Site/Description Given No growth in 48 hours. 10/17/18 11:30 Blood Culture - Preliminary Blood Culture (Wb) #2 - Anticubital Left No growth in 48 hours. 10/17/18 13:00 Urine Culture - Final Urine, Clean Catch Culture exhibits no growth. 10/17/18 19:05 Streptococcus pneumoniae Antigen (M - Final Urine, Clean Catch 10/17/18 19:05 Legionella Antigen - Final Urine, Clean Catch Laboratory Tests Past 24 Hrs 10/18/18 10/19/18 10/19/18 13:47 05:45 08:24 WBC 9.2 RBC 2.66 L Hgb 7.9 L Hct 24.2 L MCV 91.0 MCH 29.7 MCHC 32.6 RDW 18.7 H RDW Differential 58.1 H Plt Count 7 L* Neut % (Auto) Not Reportable Absolute Neuts (auto) Not Reportable Total Counted 100 Neutrophils % (Manual) 1 L Lymphocytes % (Manual) 39 Eosinophils % (Manual) 1 Blast Cells % 59 H* Nucleated RBCs/100 WBC 1 Diff Path Review May foll Platelet Estimate MKD DEC RBC Morphology N CHROM Anisocytosis 1+ Vancomycin Trough 7.7 Aspergillus flavus Ab Aspergill fumigatus Ab Aspergillus niger Ab Blood Type O NEGATIVE Antibody Screen NEGATIVE Crossmatch See Detail 10/19/18 08:24 WBC RBC Hgb Hct MCV MCH MCHC RDW RDW Differential Plt Count Neut % (Auto) Absolute Neuts (auto) Total Counted Neutrophils % (Manual) Lymphocytes % (Manual) Eosinophils % (Manual) Blast Cells % Nucleated RBCs/100 WBC Diff Path Review Platelet Estimate RBC Morphology Anisocytosis Vancomycin Trough Aspergillus flavus Ab Pending Aspergill fumigatus Ab Pending Aspergillus niger Ab Pending Blood Type Antibody Screen Crossmatch Assessment/Plan Hospitalist note: I am seeing this patient in conjunction with Charan Garnica. I independently seen and examined the patient. Progress note above and laboratory data and I agree with above treatment and workup plan. She still having spikes of fever. Complaint of productive cough with colored sputum, no blood. Denied worsening shortness of breath. Apart from fever, other vital signs are stable. - Physical Exam General: Alert, Oriented x3, Cooperative, No apparent distress. HEENT: Atraumatic, PERRLA, EOMI. Neck: Supple, No JVD, Negative Carotid Bruits, Trachea Midline, Thyroid Normal. Lungs: Decreased breath sounds on the left base, impaired percussion note, rhonchi. No wheezing or rails. Cardiovascular: Regular rate, Regular Rhythm, Normal S1, Normal S2, PMI Normal. Abdomen: Bowel Sounds Present, Soft, Non Tender, Non-Distended, No Hepato- splenomegaly. Extremities: No clubbing, No cyanosis, No edema Skin: No rashes, No breakdown Neurological: Neuro grossly intact Assessment and plan: #1 febrile neutropenia: Probably secondary to healthcare associate pneumonia. Again today, her ANC is not reportable. Remains on IV vancomycin and meropenem. She is still having spikes of fever. Blood culture showed no growth in 48 hours. Urine culture showed no growth. Plan to continue same treatment, awaiting oncology recommendations. #2 anemia/thrombocytopenia: Secondary to chemotherapy. She received 1 unit of packed RBCs and 2 units of platelet pheresis. Her platelets still low at 7000, hemoglobin 7.9 g/dL. Plan for supportive treatment for now, awaiting oncology recommendations. #3 healthcare associated pneumonia/sepsis: CT scan chest reviewed. Patient is on IV meropenem and vancomycin. Pneumococcal and Legionella antigen were negative. Urine culture showed no growth. Cultures are negative as above. Plan to continue same treatment. #4 right upper lobe irregular nodule: Metastatic cancer is a possibility. Initial plan was for bronchoscopy tomorrow morning but because of her very low platelet count, she is at high risk for any procedure. Pulmonology on the case, awaiting oncology recommendations as above. #5 AML: On chemotherapy, oncology consulted. This note was generated with [employer] dictation software. It may contain incorrect words, spelling, and punctuation that were not noted in checking the note before signing. Code Visit Inpatient E&M: 97283 Subs Hosp L2
--- NOTE | 2018-10-19 14:26 | NURSING ---
SPOKE WITH ROM IN [facility] RE:MISSING 1400 DOSE OF MERREM, HE SAID HE WILL LOOK INTO
--- NOTE | 2018-10-19 18:49 | PCM.RX.CS ---
Consult Pharmacy has been consulted to manage selected antiobiotic: Vancomycin Type of Consult: Follow-up Suspected Infection: Other Prior Doses of Antibiotics Received/Current Regimen: On 750mg iv q12h. Labs: Sodium 140 mmol/L (136-145) 10/18/18 06:15 Potassium 3.8 mmol/L (3.5-5.1) 10/18/18 06:15 Chloride 105 mmol/L (98-107) 10/18/18 06:15 Carbon Dioxide 27.0 mmol/L (21.0-32.0) 10/18/18 06:15 Anion Gap 8 (5-15) 10/18/18 06:15 BUN 11 mg/dL (7-18) 10/18/18 06:15 Creatinine 0.65 mg/dL (0.55-1.02) 10/18/18 06:15 Est GFR (MDRD) Af Amer 115 mL/min (>60) 10/18/18 06:15 Est GFR (MDRD) Non-Af 95 mL/min (>60) 10/18/18 06:15 BUN/Creatinine Ratio 17.0 RATIO (10-20) 10/18/18 06:15 Glucose 110 mg/dL (74-106) H 10/18/18 06:15 Vancomycin Trough 7.7 ug/mL (5.0-15.0) 10/19/18 08:24 Microbiology: Microbiology 10/18/18 23:07 Sputum, Expectorated/Coughed Gram Stain - Final 10/17/18 11:35 Blood Culture (Wb) - No Site/Description Given Blood Culture - Preliminary No growth in 48 hours. 10/17/18 11:30 Blood Culture (Wb) #2 - Anticubital Left Blood Culture - Preliminary No growth in 48 hours. 10/17/18 13:00 Urine, Clean Catch Urine Culture - Final Culture exhibits no growth. 10/17/18 19:05 Urine, Clean Catch Streptococcus pneumoniae Antigen (M - Final 10/17/18 19:05 Urine, Clean Catch Legionella Antigen - Final Weight used for dosin.6 kg Estimated Creatinine Clearance: ~42 ml/min Goal Trough: 15-20 mcg/mL Pharmacy Plan for Drug Dosing: Trough level of 12.2.18 @0824 was 7.7 (goal range 15-20). Will increase dose to 1250mg iv q12h starting @2200 .18 and get repeat trough level before 4th dose of new regimen. Pharmacy Service will continue to monitor and adjust dosing as required. Follow-Up Labs: Trough Vancomycin - .03.05 @0930 before 1000 dose
[2018-10-20 03:15] VITALS: BP 135/62; PULSE 95; RESP 16; TEMP 37.2; O2SAT 95
[2018-10-20 06:32] LABS: Hematocrit 26.5 % (37-47); Hemoglobin 8.5 g/dl (12.0-15.0); Mean Corp Hgb Conc 32.1 g/gl (32-36); Mean Corpuscular Hgb 29.7 pg (27.0-32.0); Mean Corpuscular Volume 92.7 fL (81-99); RBC Distribution Width CV 18.7 % (11.6-14.6); RBC Distribution Width SD 60.4 fl (35.1-43.9); Red Blood Count 2.86 M/mm3 (4.2-5.4); White Blood Count 9.7 K/mm3 (4.4-11.0)
[2018-10-20 07:21] LABS: Blast 73 % (0-0); Eosinophil 1 % (0-5); Lymphocyte 22 % (19-41); Metamyelocyte 2 % (0-1); Myelocyte 1 (0-0); Neutrophil-Band 1 % (0-5); Total Cells Counted 100 (MANUAL DIFF)
[2018-10-20 07:24] LABS: Anisocytosis 1+; Polychromasia RARE
[2018-10-20 07:25] LABS: Platelet Estimate MKD DEC (ADEQ)
[2018-10-20 07:29] LABS: Platelet Count 5 K/mm3 (150-450)
[2018-10-20 07:31] LABS: Differential Indicated MANUAL DIFF; POSITIVE COUNT YES; POSITIVE DIFFERENTIAL NO; POSITIVE MORPHOLOGY YES
[2018-10-20 07:39] LABS: Absolute Lymphocyte Count 2.13 X10^3/ul (0.83-4.51); Absolute Neutrophil Count 0.4 X10^3/uL (2.0-7.7)
--- NOTE | 2018-10-20 07:43 | PN_ITS ---
Patient Problems: Active and Suspected Problems HCAP (healthcare-associated pneumonia) (Acute) Subjective: Has developed cough over the last several days. Occasionally productive of saumya colored sputum. She does not feel short of breath at rest but she says oxygen definitely helps her breathing. Other events noted. Remains th rombocytopenic. - Physical Exam Vital Signs Temp Pulse Resp BP Pulse Ox 98.9 F 95 16 135/62 H 95 10/20/18 03:15 10/20/18 03:15 10/20/18 03:15 10/20/18 03:15 10/20/18 03:15 Oxygen Flow Rate (L/min) 2 Oxygen Delivery Method Nasal Cannula Weight: 91.626 kg Body Mass Index (BMI) 34.7 Intake and Output for Last 24 Hours 10/18/18 10/19/18 10/20/18 23:59 23:59 23:59 Intake Total 2177 / 2177 2557 / 2557 1918.1 / 1918.1 Output Total 1900 / 1900 3000 / 3000 1250 / 1250 Balance 277 / 277 -443 / -443 668.1 / 668.1 Microbiology Past 72 Hours 10/18/18 23:07 Gram Stain - Final Sputum, Expectorated/Coughed 10/17/18 11:35 Blood Culture - Preliminary Blood Culture (Wb) - No Site/Description Given No growth in 48 hours. 10/17/18 11:30 Blood Culture - Preliminary Blood Culture (Wb) #2 - Anticubital Left No growth in 48 hours. 10/17/18 13:00 Urine Culture - Final Urine, Clean Catch Culture exhibits no growth. 10/17/18 19:05 Streptococcus pneumoniae Antigen (M - Final Urine, Clean Catch 10/17/18 19:05 Legionella Antigen - Final Urine, Clean Catch Laboratory Tests Past 24 Hrs 10/19/18 10/19/18 10/19/18 05:45 08:24 08:24 WBC RBC Hgb Hct MCV MCH MCHC RDW RDW Differential Plt Count MPV Neut % (Auto) Absolute Neuts (auto) Absolute Lymphs (auto) Total Counted 100 Neutrophils % (Manual) 1 L Band Neutrophils % Lymphocytes % (Manual) 39 Eosinophils % (Manual) 1 Metamyelocytes % Myelocytes % Blast Cells % 59 H* Nucleated RBCs/100 WBC 1 Diff Path Review May foll Platelet Estimate MKD DEC RBC Morphology N CHROM Polychromasia Anisocytosis 1+ Vancomycin Trough 7.7 Aspergillus flavus Ab Pending Aspergill fumigatus Ab Pending Aspergillus niger Ab Pending 10/20/18 05:44 WBC 9.7 RBC 2.86 L Hgb 8.5 L Hct 26.5 L MCV 92.7 MCH 29.7 MCHC 32.1 RDW 18.7 H RDW Differential 60.4 H Plt Count 5 L* MPV TNP Neut % (Auto) Not Reportable Absolute Neuts (auto) 0.4 L Absolute Lymphs (auto) 2.13 Total Counted 100 Neutrophils % (Manual) Band Neutrophils % 1 Lymphocytes % (Manual) 22 Eosinophils % (Manual) 1 Metamyelocytes % 2 H Myelocytes % 1 H Blast Cells % 73 H* Nucleated RBCs/100 WBC Diff Path Review May foll Platelet Estimate MKD DEC RBC Morphology Polychromasia RARE Anisocytosis 1+ Vancomycin Trough Aspergillus flavus Ab Aspergill fumigatus Ab Aspergillus niger Ab Medical Necessity - Tobacco Use Smoking Status: Never smoker Tobacco Use: Non-smoker Assessment/Plan All Active Problems Neutropenic fever (Acute) Sepsis (Acute) HCAP (healthcare-associated pneumonia) (Acute) 1) Pneumonia in the setting of prolonged neutropenia. Assessment: -No organism yet identified. -Not a candidate for bronchoscopy due to severe thrombocytopenia. -Continues to have low-grade fever with productive cough. -Blast count remains high. -Discussed with patient and many family members today overall prognosis. Unfortunately there has been no improvement in the leukemia and her platelets have remained refractory to transfusion. Her overall prognosis is poor and even if radiologic microorganism for pneumonia discovered, without full immune system and progressive leukemia prognosis for improvement is grim. I therefore recommended hospice care. The patient and her family are in agreement but would like to have a little more insight as to the cost of care at home. Plan: -Consult hospice. -Potential d/c home today.
--- NOTE | 2018-10-20 08:26 | PCM.PN.HOSP ---
Patient Problems: Active and Suspected Problems HCAP (healthcare-associated pneumonia) (Acute) Subjective: Patient with no acute events overnight per self and per nursing staff. Patient very fatigued but states that she is feeling improved since day prior. Patient this morning with a lengthy conversation with Dr. Knapp regarding patient prognosis which is poor. Patient following these discussions and recurrent discussions amenable to hospice transition. Family and patient requesting hospice at home. Patient denies chills, nausea, emesis, abdominal pain, chest pain or recurrent or worsened dyspnea. Patient did have low-grade temperatures up to 100.1. Objective: Physical Examination: General: awake, alert, oriented x 3 and cooperative, seated upright in the bed in no apparent distress. Skin: normal color, turgor, no icterus, cyanosis. HEENT: AT/NC, EOMI, PERRLA, mildly dry MM. Lungs: Diminished BS BL bases, L>R, moderate effort, no rales, ronchi or wheezing. Heart: Regular rate and regular rhythm; no gallop, rub audible. Abdomen: soft, obese, NTTP, ND, normal BS. Extremities: no cyanosis, clubbing, mild BL ankle nonpitting edema. Neurological: patient awake, alert, oriented x 3; cognitive function intact; pupils equally reactive to light and accomodation; cranial nerves II-XII grossly normal, moving all 4 extremities, no focal deficits, strength moderately to severely globally decreased. Psychiatric: affect appears fatigued, no acute evidence of depressive or anxiety feelings. Vitals/I&O's: Vital Signs Temp Pulse Resp BP Pulse Ox 98.9 F 95 16 135/62 H 95 10/20/18 03:15 10/20/18 03:15 10/20/18 03:15 10/20/18 03:15 10/20/18 03:15 Oxygen Flow Rate (L/min) 2 Oxygen Delivery Method Nasal Cannula Weight: 202 lb Body Mass Index (BMI) 34.7 Intake and Output for Last 24 Hours 10/18/18 10/19/18 10/20/18 23:59 23:59 23:59 Intake Total 2177 / 2177 2557 / 2557 1918.1 / 1918.1 Output Total 1900 / 1900 3000 / 3000 1250 / 1250 Balance 277 / 277 -443 / -443 668.1 / 668.1 Microbiology Past 72 Hours 10/18/18 23:07 Sputum, Expectorated/Coughed Gram Stain - Final 10/17/18 11:35 Blood Culture (Wb) - No Site/Description Given Blood Culture - Preliminary No growth in 48 hours. 10/17/18 11:30 Blood Culture (Wb) #2 - Anticubital Left Blood Culture - Preliminary No growth in 48 hours. 10/17/18 13:00 Urine, Clean Catch Urine Culture - Final Culture exhibits no growth. 10/17/18 19:05 Urine, Clean Catch Streptococcus pneumoniae Antigen (M - Final 10/17/18 19:05 Urine, Clean Catch Legionella Antigen - Final Laboratory Results 10/19/18 08:24: Vancomycin Trough 7.7 10/19/18 08:24: Aspergillus flavus Ab Pending, Aspergill fumigatus Ab Pending, Aspergillus niger Ab Pending 10/20/18 05:44: WBC 9.7, RBC 2.86 L, Hgb 8.5 L, Hct 26.5 L, MCV 92.7, MCH 29.7, MCHC 32.1, RDW 18.7 H, RDW Differential 60.4 H, Plt Count 5 L*, MPV TNP, Neut % (Auto) Not Reportable, Absolute Neuts (auto) 0.4 L, Absolute Lymphs (auto) 2.13, Total Counted 100, Band Neutrophils % 1, Lymphocytes % (Manual) 22, Eosinophils % (Manual) 1, Metamyelocytes % 2 H, Myelocytes % 1 H, Blast Cells % 73 H*, Diff Path Review May , Platelet Estimate MKD DEC, Polychromasia RARE, Anisocytosis 1+ Current Medications Acetaminophen (Tylenol) 650 mg PO Q6H PRN PRN PRN Reason: Pain/Headache Last Admin: 10/19/18 21:21 Dose: 650 mg Acyclovir (Zovirax) 400 mg PO BID JOHANNY Last Admin: 10/19/18 21:05 Dose: 400 mg Albuterol Sulfate (Ventolin Aerosols) 2.5 mg INHALATION Q2H PRN PRN Reason: short of breath Meropenem 1 gm/ Sodium (Chloride) 120 mls @ 33 mls/hr IV Q8 JOHANNY Last Admin: 10/20/18 05:49 Dose: 33 mls/hr Vancomycin IV Pharmacy to Dose (1 ea/ Sodium Chloride) 500 mls @ 250 mls/hr IV PRN PRN; Protocol PRN Reason: Rx to Dose Vancomycin HCl 1,250 mg/ (Sodium Chloride) 275 mls @ 167 mls/hr IV Q12H [facility] Last Admin: 10/19/18 21:10 Dose: 167 mls/hr Magnesium Hydroxide (Milk Of Magnesia) 30 ml PO DAILY PRN PRN PRN Reason: Constipation Nutritional Formula (Lactose Free) (Ensure Enlive) 120 ml PO 4X/DAY [facility] Last Admin: 10/19/18 21:05 Dose: Not Given Ondansetron HCl (Zofran Odt) 8 mg PO Q8H PRN PRN Ondansetron HCl (Zofran) 4 mg IV Q8H PRN PRN PRN Reason: Nausea Sodium Chloride () 5 - 15 ml IV UD PRN PRN Reason: SALINE FLUSH Last Admin: 10/17/18 22:04 Dose: 10 ml Medical Necessity - Tobacco Use Smoking Status: Never smoker Tobacco Use: Non-smoker Assessment/Plan All Active Problems Neutropenic fever (Acute) Sepsis (Acute) HCAP (healthcare-associated pneumonia) (Acute) The patient is a 73 y/o F w/ PMHx: HTN off regimen since initiation of chemotherapy secondary to hypotension, Obesity, Urinary Retention with intermittent self-catheterization need, recent Dx AML on chemotherapy (Vidaza), Chronic Pancytopenia requiring plts transfusions often 2-3x/week, recent admission 10/11/18 secondary to acute sepsis, neutropenic fever w/ pneumonia who now re-presents to the [facility] ED on 10/17/18 with recurrent fever. (1) Acute Sepsis secondary to Neutropenic fever secondary to HCAP LLL, RML: Returns with ongoing fever, recently treated w/ IV vanc and meropenem, transitioned to oral augmentin and levaquin, now restarted on vanc and meropenem, intermittent fevers ongoing, BCx NGTD, UCx without growth, Oncology consulted and evaluation this AM with gulshan discussions with family and decision for transition to Hospice/DNR-CC status. Hospice consulted, planed transition to home hospice. Oxygen set-up per hospice for discharge. (2) Acute on chronic pancytopenia: Admission CBC w/ WBC 9.2, Hgb 7.9, Plts 3 with blasts 95%, remained similar, 10/20/18 CBC w/ WBC 9.7, Hgb 8.5, Plts 5, defer plt transfusion given planned hospice comfort transition. Chronically baseline Plts 5-10, requires transfusion 2-3x per week. (3) AML: Patient following w/ Dr. Knapp/Dr. Jimenez, patient on chemotherapy (Vidaza). Treatment neutropenia as noted #1 and pancytopenia as noted #2. Oncology consulted, aware, given ongoing presentations, recommendation for Hospice transition and patient/family amenable. (4) Urinary Retention, Intermittent: Noted history of urinary retention with intermittent self-catheterization needs, bladder scans and continue home PRN regimen catheterization. (5) Hypertension: No longer on regimen as noted improvement when diagnosed w/ AML. (6) Obesity: Weight loss and lifestyle changes encouraged. (7) DVT Prophylaxis: SCDs, defer chemoprophylaxis given acute on chronic pancytopenia. (8) CODE status: Discussed CODE status at length including difference between FULL code, DNR-CCA and DNR-CC status. Following discussions about the differences in these status, requested DNR-CC status. DNR-CC form signed and placed on the chart. Hospice consulted and planned discharge to home hospice. Family has notable family support. Advanced Care Planning Face to Face Time: 25 minutes. Code Visit Procedures: 03458 Advncd Care Plan 30 Min
--- NOTE | 2018-10-20 08:29 | PCM.PROGNOTE ---
Patient Problems: Active and Suspected Problems HCAP (healthcare-associated pneumonia) (Acute) Subjective: The patient was seen and examined at the bedside this morning. Events from the last 24 hours have been reviewed. The patient is currently afebrile, hemodynamically stable and maintaining appropriate oxygen saturations on 2 L/min. The patient does have a mild productive cough. She was evaluated by her oncologist, Dr. Knapp this morning. Due to her underlying leukemia and transfusion refractory thrombocytopenia, the recommendation was made for hospice care. Objective: The patient's most recent lab work, culture data and imaging studies have all been personally reviewed. - Physical Exam General: Alert, Cooperative, No apparent distress HEENT: Atraumatic, PERRLA, Normocephalic Oral: No Gingival or Mucosal Lesions/ Ulcerations Neck: Supple, No Nodes, Trachea Midline Lungs: No rhonchi, No wheeze, No rales, Diminished Cardiovascular: Regular rate, Regular Rhythm, Normal S1, Normal S2, No murmurs Abdomen: Bowel Sounds Present, Soft, Non Tender Extremities: No clubbing, No cyanosis, No edema Skin: No breakdown Musculoskeletal: No Tenderness to Palpation of Joints or Extremities Neurological: Cranial nerves II-XII grossly intact, Neuro grossly intact Psych/Mental Status: Normal Affect, Appropriate Vital Signs Temp Pulse Resp BP Pulse Ox 37.2 C 95 16 135/62 H 95 10/20/18 03:15 10/20/18 03:15 10/20/18 03:15 10/20/18 03:15 10/20/18 03:15 Oxygen Flow Rate (L/min) 2 Oxygen Delivery Method Nasal Cannula Weight: 202 lb Body Mass Index (BMI) 34.7 Intake and Output for Last 24 Hours 10/18/18 10/19/18 10/20/18 23:59 23:59 23:59 Intake Total 2177 / 2177 2557 / 2557 1918.1 / 1918.1 Output Total 1900 / 1900 3000 / 3000 1250 / 1250 Balance 277 / 277 -443 / -443 668.1 / 668.1 Microbiology Past 72 Hours 10/18/18 23:07 Gram Stain - Final Sputum, Expectorated/Coughed 10/17/18 11:35 Blood Culture - Preliminary Blood Culture (Wb) - No Site/Description Given No growth in 48 hours. 10/17/18 11:30 Blood Culture - Preliminary Blood Culture (Wb) #2 - Anticubital Left No growth in 48 hours. 10/17/18 13:00 Urine Culture - Final Urine, Clean Catch Culture exhibits no growth. 10/17/18 19:05 Streptococcus pneumoniae Antigen (M - Final Urine, Clean Catch 10/17/18 19:05 Legionella Antigen - Final Urine, Clean Catch Laboratory Tests Past 24 Hrs 10/19/18 10/19/18 10/20/18 08:24 08:24 05:44 WBC 9.7 RBC 2.86 L Hgb 8.5 L Hct 26.5 L MCV 92.7 MCH 29.7 MCHC 32.1 RDW 18.7 H RDW Differential 60.4 H Plt Count 5 L* MPV TNP Neut % (Auto) Not Reportable Absolute Neuts (auto) 0.4 L Absolute Lymphs (auto) 2.13 Total Counted 100 Band Neutrophils % 1 Lymphocytes % (Manual) 22 Eosinophils % (Manual) 1 Metamyelocytes % 2 H Myelocytes % 1 H Blast Cells % 73 H* Diff Path Review May foll Platelet Estimate MKD DEC Polychromasia RARE Anisocytosis 1+ Vancomycin Trough 7.7 Aspergillus flavus Ab Pending Aspergill fumigatus Ab Pending Aspergillus niger Ab Pending Clinical Impression(s) from Imaging Studies Chest X-Ray 10/17/18 11:12 IMPRESSION: Persistent left lower lobe infiltrate with blunting of the left costophrenic angle. There has been improvement as compared to prior study. Electronically Signed: Bobby Birmingham MD at 12:19 EST Tel [phone], Service support , Chest CT 10/17/18 13:55 IMPRESSION: Dense infiltration in the left lower lobe with a small left pleural effusion. Minimal atelectasis and/or scarring at the right lung base. 1.8 cm x 1.9 cm irregular nodular density in the right upper lobe. Follow-up is recommended. Electronically Signed: Bobby Birmingham MD at 14:58 EST Tel [phone], Service support , Medical Necessity - Tobacco Use Smoking Status: Never smoker Tobacco Use: Non-smoker Assessment/Plan All Active Problems Neutropenic fever (Acute) Sepsis (Acute) HCAP (healthcare-associated pneumonia) (Acute) RECOMMENDATIONS: 1. Following a discussion with oncology, the patient is being transitioned to comfort care measures only. 2. No indication for bronchoscopy at this time. IMPRESSIONS: 1. Neutropenic fever with abnormal chest imaging/infiltrates Initial concern for potential aspergillosis. At this time, however, the patient's platelet count is too low and would preclude options for proceeding with bronchoscopy/BAL. Following a discussion with oncology this morning, the patient has elected to pursue comfort care measures only. CODE STATUS has been updated accordingly. Hospice referral is pending. 2. AML/advanced age/anemia/thrombocytopenia Complicates care, management, recovery and prognosis. Appreciate oncology input. This note was generated with [employer] dictation software. It may contain incorrect words, spelling, and punctuation that were not noted in checking the note before signing. Given the patient's recent transition in code status, will sign off. Please call with any additional questions. Code Visit Inpatient E&M: 54342 Subs Hosp L2
[2018-10-20 09:09] VITALS: BP 147/81; PULSE 110; RESP 18; TEMP 37.4; O2SAT 95
[2018-10-20] MEDS: Acyclovir 200 MG Capsule 400 MG PO (09:12)
--- NOTE | 2018-10-20 09:44 | PCM.DC ---
- Discharge Diagnoses Current Active Problems: Current Active and Chronic Problems (1) Acute Sepsis secondary to Neutropenic fever secondary to HCAP (2) Acute on chronic pancytopenia (3) AML (4) Urinary Retention, Intermittent (5) Hypertension (6) Obesity (7) CODE status: DNR-CC status, planned discharge to home hospice. You will use the following diet at home:: No restrictions Your food should be the consistency of: Regular Your liquids should be the consistency of: Regular/Thin Discharge Activity: No Restrictions Weight Bearing Status: Weight bearing as tolerated Call your doctor if you observe: Shortness of breath, Uncontrolled pain Instructions: What Is Hospice?, Starting Hospice, Hospice: The Importance of Managing Pain, Hospice: Understanding and Caring for Dyspnea Allergies/Adverse Reactions: Allergies No Known Allergies Allergy (Verified 10/11/18 22:58) Medications to take at Discharge Acyclovir 400 mg PO BID 10/11/18 Ondansetron [Zofran] 8 mg PO Q8H PRN PRN 10/11/18 Albuterol Aerosols [Ventolin Aerosols] 2.5 mg INHALATION Q2H PRN vial.neb. 10/20/18 Magnesium Hydroxide [Milk Of Magnesia] 30 ml PO DAILY PRN PRN udc 10/20/18 Primary Care Physician: Stephane Knapp DO [Primary Care Provider] - Please follow up with your Primary Care Physician in: Transition to hospice, hospice team to assume all care. Test Results: Test results from this visit will be discussed in further detail at your follow-up appointment, if applicable. Please Follow Up With: [facility] When: Please contact Hospice with any concerns or questions. Proposed Discharge Date: 10/20/18
[2018-10-20 14:04] VITALS: BP 149/82; PULSE 110; RESP 18; TEMP 37.4; O2SAT 96
--- NOTE | 2018-10-20 14:18 | CHAPLAIN ---
Type of Pastoral Visit _x__ Initial Visit ___ Follow-up Visit ___ On-call Visit ___ General Patient Visit ___ Spiritual Assessment ___ Family Conference ___ Bereavement ___ Rapid Response ___ Code Blue ___ Other (describe below) Pastoral Care Referral From _x__ Patient ___ Family ___ Nurse ___ Physician ___ Linen Checker ___ Data Warehouse Consultant ___ Other (describe below) Sacrament/Intervention ___ Active listening ___ Anointing ___ Jewish ___ Bereavement ___ Communion ___ Johanna exploration ___ ___ Life review ___ Prayer ___ Reconciliation ___ Sacrament of Sick _x__ Supportive presence ___ Wedding ___ Other (describe below) Pastoral Comments family members were gathered in the room; patient was on the telephone; offered support to family and they said that pt would be discharged soon and they did not need anything at this time
[2018-10-20 15:00] VITALS: O2SAT 91
--- NOTE | 2018-10-20 15:17 | PCM.DC.SUM ---
Discharge Date and Diagnosis - Problem List Patient Problems: Active and Suspected Problems HCAP (healthcare-associated pneumonia) (Acute) Date of Admission: 10/17/18 Date of Discharge: 10/20/18 - Primary Discharge Diagnosis Active and Suspected Problems (1) Acute Sepsis secondary to Neutropenic fever secondary to HCAP (2) Acute on chronic pancytopenia (3) AML (4) Urinary Retention, Intermittent (5) Hypertension (6) Obesity (7) CODE status: DNR-CC status, planned discharge to home hospice. - Secondary Discharge Diagnosis Chronic Problems AML (acute myeloblastic leukemia) (Chronic) HTN (hypertension) (Chronic) Obesity (Chronic) Hospital Course and Treatment Dr. [place] Pulmonary Dr. Knapp Oncology Dr. Sharp Hospice Operations: None Procedures: Blood transfusion, EKG Summary of Care Provided: The patient is a 73 y/o F w/ PMHx: HTN off regimen since initiation of chemotherapy secondary to hypotension, Obesity, Urinary Retention with intermittent self-catheterization need, recent Dx AML on chemotherapy (Vidaza), Chronic Pancytopenia requiring plts transfusions often 2-3x/week, recent admission 10/11/18 secondary to acute sepsis, neutropenic fever w/ pneumonia who now re-presented to the [facility] ED on 10/17/18 with recurrent fever. Patient as noted returned with ongoing fever, recently treated w/ IV vanc and meropenem, transitioned to oral augmentin and levaquin, now restarted on vanc and meropenem upon presentation with intermittent fevers ongoing, BCx NGTD, UCx without growth, Oncology consulted and evaluation 10/20/18 AM with gulshan discussions with family and decision for transition to Hospice/DNR-CC status. Hospice consulted, transition to home hospice with discontinuation of antibiotic therapies. Oxygen set-up per hospice for discharge. Additionally, during admission, admit CBC w/ WBC 9.2, Hgb 7.9, Plts 3 with blasts 95%, remained similar, 10/20/18 CBC w/ WBC 9.7, Hgb 8.5, Plts 5 following administration PRBC 1 unit and plts x 2 pack during admission w/ further deferred plt transfusion given hospice comfort transition. Following hospice evaluation and home hospice set-up and discharged to home with set-up per Hospice. Patient Problems: Active and Suspected Problems HCAP (healthcare-associated pneumonia) (Acute) - Physical Exam Vital Signs Temp Pulse Resp BP Pulse Ox 99.3 F H 110 H 18 149/82 H 96 10/20/18 14:04 10/20/18 14:04 10/20/18 14:04 10/20/18 14:04 10/20/18 14:04 Oxygen Flow Rate (L/min) 2 Oxygen Delivery Method Nasal Cannula Weight: 202 lb Body Mass Index (BMI) 34.7 Intake and Output for Last 24 Hours 10/18/18 10/19/18 10/20/18 23:59 23:59 23:59 Intake Total 2177 / 2177 2557 / 2557 2360.1 / 2360.1 Output Total 1900 / 1900 3000 / 3000 1250 / 1250 Balance 277 / 277 -443 / -443 1110.1 / 1110.1 Microbiology Past 72 Hours 10/18/18 23:07 Gram Stain - Final Sputum, Expectorated/Coughed Respiratory Culture - Preliminary Appears to be normal respiratory tawnya. Further studies to follow. 10/17/18 11:35 Blood Culture - Preliminary Blood Culture (Wb) - No Site/Description Given No growth in 48 hours. 10/17/18 11:30 Blood Culture - Preliminary Blood Culture (Wb) #2 - Anticubital Left No growth in 48 hours. 10/17/18 13:00 Urine Culture - Final Urine, Clean Catch Culture exhibits no growth. 10/17/18 19:05 Streptococcus pneumoniae Antigen (M - Final Urine, Clean Catch 10/17/18 19:05 Legionella Antigen - Final Urine, Clean Catch Laboratory Tests Past 24 Hrs 10/20/18 05:44 WBC 9.7 RBC 2.86 L Hgb 8.5 L Hct 26.5 L MCV 92.7 MCH 29.7 MCHC 32.1 RDW 18.7 H RDW Differential 60.4 H Plt Count 5 L* MPV TNP Neut % (Auto) Not Reportable Absolute Neuts (auto) 0.4 L Absolute Lymphs (auto) 2.13 Total Counted 100 Band Neutrophils % 1 Lymphocytes % (Manual) 22 Eosinophils % (Manual) 1 Metamyelocytes % 2 H Myelocytes % 1 H Blast Cells % 73 H* Diff Path Review May foll Platelet Estimate MKD DEC Polychromasia RARE Anisocytosis 1+ Discharge Activity: No Restrictions Weight Bearing Status: Weight bearing as tolerated Call your doctor if you observe: Shortness of breath, Uncontrolled pain Home Medications: Medications to take at Discharge Acyclovir 400 mg PO BID 10/11/18 Ondansetron [Zofran] 8 mg PO Q8H PRN PRN 10/11/18 Albuterol Aerosols [Ventolin Aerosols] 2.5 mg INHALATION Q2H PRN vial.neb. 10/20/18 Magnesium Hydroxide [Milk Of Magnesia] 30 ml PO DAILY PRN PRN udc 10/20/18 Primary Care Physician: Stephane Knapp DO [Primary Care Provider] - Please follow up with your Primary Care Physician in: Transition to hospice, hospice team to assume all care. Please Follow Up With: [facility] When: Please contact Hospice with any concerns or questions. Patient Instructions: What Is Hospice?, Starting Hospice, Hospice: The Importance of Managing Pain, Hospice: Understanding and Caring for Dyspnea Disposition: Home with Hospice Minutes spent on discharge:: 35 Patient Condition:: Guarded Medical Necessity - Tobacco Use Smoking Status: Never smoker Tobacco Use: Non-smoker Meaningful Use Info Meaningful Use Diagnoses (Choose all that apply): None applicable Code Visit Inpatient E&M: 30547 Disch Hosp
--- NOTE | 2018-10-20 16:33 | CPS ---
Patient getting ready for discharge home.
--- NOTE | 2018-10-20 16:34 | CPS ---
Patient was on O2 earlier.
[2018-10-21 14:42] LABS: Pathologist Review Reviewed
[2018-10-21 14:48] LABS: Pathologist Review Reviewed
[2018-10-21 15:02] LABS: Pathologist Review Reviewed
[2018-10-23 20:06] LABS: Aspirgillus flavus Negative (Neg:<1:1); Aspirgillus fumigatus Negative (Neg:<1:1)
[2018-10-24 11:44] LABS: Aspirgillus niger Negative (Neg:<1:1)
--- OUTSIDE RECORDS SUMMARY | 2018-12-12 09:35 | XMS RPT_ITS ---
:1945 Author Organization [place] Support Name Relationship Address Phone DARRON DINERO Unavailable [address] + [place] [address] R Unavailable Unavailable Unavailable BLACK, SHARON Unavailable [address] + [place] [address] ROSETTE DARRON Unavailable [address] + [place] [address] R Unavailable Unavailable Unavailable BLACK, SHARON Unavailable [address] + [place] [address] ROSETTE DARRON Unavailable [address] + [place] [address] R Unavailable Unavailable Unavailable BLACK, SHARON Unavailable [address] + [place] [address] ROSETTE DARRON Unavailable [address] + [place] [address] R Unavailable Unavailable Unavailable BLACK, SHARON Unavailable [address] + [place] [address] ROSETTE DARRON Unavailable [address] + [place] [address] R Unavailable Unavailable Unavailable BLACK, SHARON Unavailable [address] + [place] [address] DINERO DARRON Unavailable [address] + [place] [address] R Unavailable Unavailable Unavailable BLACK, SHARON Unavailable [address] + [place] [address] ROSETTE DARRON Unavailable [address] + [place] [address] R Unavailable Unavailable Unavailable BLACK, SHARON Unavailable [address] + [place] [address] ROSETTE DARRON Unavailable [address] + [place] [address] R Unavailable Unavailable Unavailable BLACK, SHARON Unavailable [address] + [place] [address] DINERO, DARRON Unavailable Unavailable + R Unavailable Unavailable Unavailable DINERO, DARRON Unavailable [address] + [place] [address] R Unavailable Unavailable Unavailable BLACK, SHARON Unavailable [address] + [place] [address] DINERO, DARRON Unavailable [address] + [place] [address] R Unavailable Unavailable Unavailable BLACK, SHARON Unavailable [address] + [place] [address] DINERO, DARRON Unavailable [address] + [place] [address] R Unavailable Unavailable Unavailable BLACK, SHARON Unavailable [address] + [place] [address] DINERO, DARRON Unavailable [address] + [place] [address] R Unavailable Unavailable Unavailable BLACK, SHARON Unavailable [address] + [place] [address] DINERO, DARRON Unavailable [address] + [place] [address] R Unavailable Unavailable Unavailable BLACK, SHARON Unavailable [address] + [place] [address] DINERO, DARRON Unavailable [address] + [place] [address] R Unavailable Unavailable Unavailable BLACK, SHARON Unavailable [address] + [place] [address] DINERO, DARRON Unavailable Unavailable + R Unavailable Unavailable Unavailable DINERO, DARRON Unavailable Unavailable + R Unavailable Unavailable Unavailable DINERO, DARRON Unavailable Unavailable + R Unavailable Unavailable Unavailable DINERO, DARRON Unavailable Unavailable + R Unavailable Unavailable Unavailable DINERO, DARRON Unavailable Unavailable + R Unavailable Unavailable Unavailable DINERO, DARRON Unavailable Unavailable + R Unavailable Unavailable Unavailable DINERO, DARRON Unavailable Unavailable + R Unavailable Unavailable Unavailable DINERO, DARRON Unavailable Unavailable + R Unavailable Unavailable Unavailable DINERO, DARRON Unavailable Unavailable + R Unavailable Unavailable Unavailable DINERO, DARRON Unavailable Unavailable + R Unavailable Unavailable Unavailable DINERO, DARRON Unavailable Unavailable + R Unavailable Unavailable Unavailable DINERO, DARRON Unavailable Unavailable + R Unavailable Unavailable Unavailable DINERO, DARRON Unavailable Unavailable + R Unavailable Unavailable Unavailable DINERO, DARRON Unavailable [address] + [place] [address] KUNAL BLACK Unavailable [address] Unavailable [place], [place] [id number] Care Team Providers Name Role Phone Ra Stephane Attending Unavailable Masci, Stephane Referring Unavailable Kornhaus, Yariel Primary Care Unavailable White, Shannan Admitting Unavailable Tereletsky, Nathaniel Attending Unavailable Masci, Stephane Primary Care Unavailable Masci, Stephane Consulting Unavailable Tereletsky, Nathaniel Consulting Unavailable Masci, Stephane Primary Care Unavailable Jopperi, Luis Admitting Unavailable Rolf, Rashaun Consulting Unavailable White, Shannan Attending Unavailable Masci, Stephane Consulting Unavailable Aron, Joseph Consulting Unavailable Masci, Stephane Primary Care Unavailable Jopperi, Luis Attending Unavailable Jopperi, Luis Admitting Unavailable Masci, Stephane Primary Care Unavailable Rolf, Rashaun Consulting Unavailable Ashelfah, Ghasem Attending Unavailable Masci, Stephane Consulting Unavailable Ashelfah, Ghasem Consulting Unavailable Jopperi, Luis Admitting Unavailable Timmy Cleveland D.O. Attending Unavailable Masci, Stephane Primary Care Unavailable Rolf, Rashaun Consulting Unavailable Masci, Stephane Consulting Unavailable White, Shannan Consulting Unavailable Masci, Stephane Attending Unavailable Masci, Stephane Referring Unavailable Kornhaus, Yariel Primary Care Unavailable White, Shannan Admitting Unavailable Koram, Vianey Melly Attending Unavailable Masci, Stephane Primary Care Unavailable Masci, Stephane Consulting Unavailable Koram, Vianey Melly Consulting Unavailable White, Shannan Admitting Unavailable Koram, Vianey Melly Attending Unavailable Masci, Stephane Primary Care Unavailable Masci, Stephane Consulting Unavailable Koram, Vianey Melly Consulting Unavailable White, Shannan Admitting Unavailable Sementi, Coty Attending Unavailable Masci, Stephane Primary Care Unavailable Masci, Stephane Consulting Unavailable Sementi, Coty Consulting Unavailable White, Shannan Admitting Unavailable White, Shannan Attending Unavailable Masci, Stephane Primary Care Unavailable White, Shannan Consulting Unavailable Masci, Stephane Primary Care Unavailable White, Shannan Admitting Unavailable Masci, Stephane Consulting Unavailable GladysamVianey Attending Unavailable Masci, Stephane Attending Unavailable Masci, Stephane Referring Unavailable Kornhaus, Yariel Primary Care Unavailable Masci, Stephane Attending Unavailable Masci, Stephane Referring Unavailable Masci, Stephane Attending Unavailable Masci, Stephane Referring Unavailable Kornhaus, Yariel Primary Care Unavailable Nirali Jimenez Attending Unavailable Tony, Nirali Referring Unavailable Kornhaus, Yariel Primary Care Unavailable Masci, Stephane Attending Unavailable Masci, Stephane Referring Unavailable Kornhaus, Yariel Primary Care Unavailable Masci, Stephane Attending Unavailable Kornhaus, Yariel Primary Care Unavailable Masci, Stephane Referring Unavailable Masci, Stephane Attending Unavailable Masci, Stephane Referring Unavailable Kornhaus, Yariel Primary Care Unavailable Masci, Stephane Attending Unavailable Masci, Stephane Referring Unavailable Kornhaus, Yariel Primary Care Unavailable Mascerin, Stephane Attending Unavailable Masci, Stephane Referring Unavailable Kornhaus, Yariel Primary Care Unavailable Mascerin, Stephane Attending Unavailable Masci, Stephane Referring Unavailable Kornhaus, Yariel Primary Care Unavailable Masci, Stephane Attending Unavailable Masci, Stephane Referring Unavailable Kornhaus, Yariel Primary Care Unavailable Mascerin, Stephane Attending Unavailable Masci, Stephane Referring Unavailable Kornhaus, Yariel Primary Care Unavailable Marlys, Luis Admitting Unavailable WhiteShannan Attending Unavailable Masci, Stephane Primary Care Unavailable RolfRashaun zamora Consulting Unavailable Masci, Stephane Consulting Unavailable Aron, Joseph Consulting Unavailable White, Shannan Consulting Unavailable Marlys, Luis Admitting Unavailable Timmy Cleveland D.O. Attending Unavailable Ra Stephane Primary Care Unavailable RolfRashaun zamora Consulting Unavailable Mascerin, Stephane Consulting Unavailable Aron, Joseph Consulting Unavailable White, Shannan Consulting Unavailable Jopperi, Luis Admitting Unavailable Masci, Stephane Primary Care Unavailable RolfRashaun zamora Consulting Unavailable Ashelfah, Ghasem Attending Unavailable Mascerin, Stephane Consulting Unavailable Ashelfah, Ghasem Consulting Unavailable Marlys, Luis Admitting Unavailable RolfRashaun zamora Attending Unavailable Masci, Stephane Primary Care Unavailable Rolf, Rashaun Consulting Unavailable Mascerin, Stephane Consulting Unavailable Ashelfah, Ghasem Consulting Unavailable STEPHANE KNAPP DO Attending Unavailable JACKLYN MCCARTY, DR. VALDEZ Primary Care Unavailable DOROTHY SEPULVEDA JR Attending Unavailable NATALYA, SUDIPTO Admitting Unavailable SEKERMOE YOUNG Attending Unavailable MASCI, STEPHANE Eubanks Attending Unavailable SEKERMOE YOUNG Referring Unavailable MASCI, STEPHANE A Referring Unavailable [...] MASCI, STEPHANE A Referring Unavailable MASCI, STEPHANE Eubanks Attending Unavailable MASCI, STEPHANE A Referring Unavailable MASCI, STEPHANE A Referring Unavailable MASCI, STEPHANE A Referring Unavailable MASCI, STEPHANE A Referring Unavailable MASCI, STEPHANE A Referring Unavailable MASCI, STEPHANE A Referring Unavailable MASCI, STEPHANE A Referring Unavailable MASCI, STEPHANE A Referring Unavailable MASCI, STEPHANE A Referring Unavailable MASCI, STEPHANE A Referring Unavailable MASCI, STEPHANE A Referring Unavailable MASCI, STEPHANE A Referring Unavailable GANGEL, DOROTHY Attending Unavailable IMCA Referring Unavailable IMCA Primary Care Unavailable JOSÉ MIGUEL VILLASENOR MD Admitting Unavailable JOSÉ MIGUEL VILLASENOR MD Attending Unavailable JOSÉ MIGUEL VILLASENOR MD Primary Care Unavailable JACKLYN, JOSÉ MIGUEL BURK Consulting Unavailable PROVIDER, UNKNOWN Consulting Unavailable PROVIDER, UNKNOWN Consulting Unavailable PROVIDER, UNKNOWN Consulting Unavailable PROBLEMS PROBLEMS DATE TYPE CONDITION / CODE ATTENDING STATUS SOURCE 10/23/2018 Unknown A41.9 - Sepsis, White, Shannan Active [facility] organism [facility] Hospital A41.9(ICD-10) Repository 10/13/2018 Unknown C95.00 - Acute Masci, Stephane Active [place] [facility] unspecified cell Hospital type not having Repository achieved remission / C95.00(ICD-10) 09/15/2018 Unknown C92.00 - Acute Masci, Stephane Active [facility] myeloblastic [facility] leukemia, 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 / C92.00(ICD-10) 08/28/2018 Active Retention of BENNETT EDWARDS, Active [place] urine, unspecified DOROTHY MUJICA [facility] Other / R33.9(ICD-10) [place] Repository 08/28/2018 Admitting Unknown / DOROTHY SEPULVEDA Active [facility] UNK(Unknown) Health System Repository 08/19/2018 Active Other pancytopenia SEKERHECTOR, Active [facility] / D61.818(ICD-10) [facility] [place] Repository 08/18/2018 Active Other specified SEKERES, Active [place] diseases of anus [facility] and rectum / [place] K62.89(ICD-10) Repository 08/16/2018 Active Immunodeficiency, JAYLA, Active [place] unspecified / [facility] D84.9(ICD-10) [facility] Repository 08/14/2018 Active Acute leukemia of JAYLA, Active [place] unspecified cell [facility] type not having [place] achieved remission Repository / C95.00(ICD-10) PROCEDURES PROCEDURES No Procedure Records FoundRESULTS RESULTS DISCHARGE SUMMARY Observed: 10/20/2018 Status: F Source: [place] 3:21 PM [facility] REPOSITORY [facility] Medical Records Department [address] [place] [address] Discharge Summary 10/20/18 1517 MR#: [id number] Acct: [id number] Name: TARI BLACK Rep #: [id number] : 1945 73 From: hSannan Leggett PCP: Stephane Knapp DO Status: ADM IN Y Location: [place] [address] Discharge Date and Diagnosis - Problem List Patient Problems: Active and Suspected Problems HCAP (healthcare-associated pneumonia) (Acute) Date of Admission: 10/17/18 Date of Discharge: 10/20/18 - Primary Discharge Diagnosis Active and Suspected Problems (1) Acute Sepsis secondary to Neutropenic fever secondary to HCAP (2) Acute on chronic pancytopenia (3) AML (4) Urinary Retention, Intermittent (5) Hypertension (6) Obesity (7) CODE status: DNR-CC status, planned discharge to home hospice. - Secondary Discharge Diagnosis Chronic Problems AML (acute myeloblastic leukemia) (Chronic) HTN (hypertension) (Chronic) Obesity (Chronic) Hospital Course and Treatment Dr. Cleveland Pulmonary Dr. Knapp Oncology Dr. Sharp Hospice Operations: None Procedures: Blood transfusion, EKG Summary of Care Provided: The patient is a 73 y/o F w/ PMHx: HTN off regimen since initiation of chemotherapy secondary to hypotension, Obesity, Urinary Retention with intermittent self-catheterization need, recent Dx AML on chemotherapy (Vidaza), Chronic Pancytopenia requiring plts transfusions often 2-3x/week, recent admission 10/11/18 secondary to acute sepsis, neutropenic fever w/ pneumonia who now re-presented to the [facility] ED on 10/17/18 with recurrent fever. Patient as noted returned with ongoing fever, recently treated w/ IV vanc and meropenem, transitioned to oral augmentin and levaquin, now restarted on vanc and meropenem upon presentation with intermittent fevers ongoing, BCx NGTD, UCx without growth, Oncology consulted and evaluation 10/20/18 AM with gulshan discussions with family and decision for transition to Hospice/DNR- CC status. Hospice consulted, transition to home hospice with discontinuation of antibiotic therapies. Oxygen set-up per hospice for discharge. Additionally, during admission, admit CBC w/ WBC 9.2, Hgb 7.9, Plts 3 with blasts 95%, remained similar, 10/20/18 CBC w/ WBC 9.7, Hgb 8.5, Plts 5 following administration PRBC 1 unit and plts x 2 pack during admission w/ further deferred plt transfusion given hospice comfort transition. Following hospice evaluation and home hospice set-up and discharged to home with set-up per Hospice. Patient Problems: Active and Suspected Problems HCAP (healthcare-associated pneumonia) (Acute) - Physical Exam Vital Signs Temp Pulse Resp BP Pulse Ox 99.3 F H 110 H 18 149/82 H 96 10/20/18 14:04 10/20/18 14:04 10/20/18 14:04 10/20/18 14:04 10/20/18 14:04 Oxygen Flow Rate (L/min) 2 Oxygen Delivery Method Nasal Cannula Weight: 202 lb Body Mass Index (BMI) 34.7 Intake and Output for Last 24 Hours Microbiology Past 72 Hours 10/18/18 23:07 Gram Stain - Final Sputum, Expectorated/Coughed Respiratory Culture - Preliminary Laboratory Tests Past 24 Hrs WBC 9.7 RBC 2.86 L Hgb 8.5 L Hct 26.5 L MCV 92.7 MCH 29.7 MCHC 32.1 RDW 18.7 H RDW Differential 60.4 H Discharge Activity: No Restrictions Weight Bearing Status: Weight bearing as tolerated Call your doctor if you observe: Shortness of breath, Uncontrolled pain Home Medications: Medications to take at Discharge Acyclovir 400 mg PO BID 10/11/18 Ondansetron [Zofran] 8 mg PO Q8H PRN PRN 10/11/18 Albuterol Aerosols [Ventolin Aerosols] 2.5 mg INHALATION Q2H PRN vial.neb. 10/20/18 Magnesium Hydroxide [Milk Of Magnesia] 30 ml PO DAILY PRN PRN udc 10/20/18 Primary Care Physician: Stephane Knapp DO [Primary Care Provider] - Please follow up with your Primary Care Physician in: Transition to hospice, hospice team to assume all care. Please Follow Up With: [facility]ice When: Please contact Hospice with any concerns or questions. Patient Instructions: What Is Hospice?, Starting Hospice, Hospice: The Importance of Managing Pain, Hospice: Understanding and Caring for Dyspnea Disposition: Home with Hospice Minutes spent on discharge:: 35 Patient Condition:: Guarded Medical Necessity - Tobacco Use Smoking Status: Never smoker Tobacco Use: Non-smoker Meaningful Use Info Meaningful Use Diagnoses (Choose all that apply): None applicable Code Visit Inpatient E AND M: 24386 Disch Hosp 10/20/18 1521 <Electronically signed by Shannan Leggett > Date Shannan Leggett Cosigner Signature (if applicable): Date CC: Shannan Leggett; Stephane Knapp DO Signed DISCHARGE INSTRUCTION Observed: 10/20/2018 Status: F Source: [place] 3:17 PM [facility] REPOSITORY [facility] Medical Records Department [address] [place] [address] Instructions for Home/Discharge Instructions 10/20/18 0944 MR#: [id number] Acct: [id number] Name: TARI BLACK Rep #: [id number] : 1945 73 From: Shannan Leggett PCP: Stephane Knapp DO Status: ADM IN - Discharge Diagnoses Current Active Problems: Current Active and Chronic Problems (1) Acute Sepsis secondary to Neutropenic fever secondary to HCAP (2) Acute on chronic pancytopenia (3) AML (4) Urinary Retention, Intermittent (5) Hypertension (6) Obesity (7) CODE status: DNR-CC status, planned discharge to home hospice. You will use the following diet at home:: No restrictions Your food should be the consistency of: Regular Your liquids should be the consistency of: Regular/Thin Discharge Activity: No Restrictions Weight Bearing Status: Weight bearing as tolerated Call your doctor if you observe: Shortness of breath, Uncontrolled pain Instructions: What Is Hospice?, Starting Hospice, Hospice: The Importance of Managing Pain, Hospice: Understanding and Caring for Dyspnea Allergies/Adverse Reactions: Allergies No Known Allergies Allergy (Verified 10/11/18 22:58) Medications to take at Discharge Acyclovir 400 mg PO BID 10/11/18 Ondansetron [Zofran] 8 mg PO Q8H PRN PRN 10/11/18 Albuterol Aerosols [Ventolin Aerosols] 2.5 mg INHALATION Q2H PRN vial.neb. 10/20/18 Magnesium Hydroxide [Milk Of Magnesia] 30 ml PO DAILY PRN PRN udc 10/20/18 Primary Care Physician: Stephane Knapp DO [Primary Care Provider] - Please follow up with your Primary Care Physician in: Transition to hospice, hospice team to assume all care. Test Results: Test results from this visit will be discussed in further detail at your follow-up appointment, if applicable. Please Follow Up With: [facility] When: Please contact Hospice with any concerns or questions. Proposed Discharge Date: 10/20/18 10/20/18 1517 <Electronically signed by Shannan Leggett > Date Shannan Leggett CC: Rashaun Bansal MD; Joseph Sharp DO; Stephane Knapp DO CBC W/DIFF, AUTOMATED Collected: 10/20/2018 Status: C Source: [place] 5:44 AM [facility] REPOSITORY TYPE CODE TESTS RESULT OUT OF RANGE REFERENCE UNITS LAB L100.1000 4.4-11.0 K/mm3 Normal WBC 9.7 LAB L100.1200 4.2-5.4 M/mm3 Low RBC 2.86 LAB L100.1300 12.0-15.0 g/dl Low HGB 8.5 LAB L100.1400 37-47 % Low HCT 26.5 LAB L100.1500 81-99 fL Normal MCV 92.7 LAB L100.1600 27.0-32.0 pg Normal MCH 29.7 LAB L100.1700 32-36 g/gl Normal MCHC 32.1 LAB L100.1810 11.6-14.6 % High RDW CV 18.7 LAB L100.1820 35.1-43.9 fl High RDW SD 60.4 LAB L100.1900 150-450 K/mm3 Low alert PLT 5 Result Comment: CRITICAL VALUE VERIFIED. CALLED TO LEWIS HERNANDEZ IN [facility]3 10/20/18 0729 Yesenia Ndiaye. RESULTS READ BACK BY SAME . LAB L100.2000 6.2-12.0 fl MPV Normal Test not performed LAB L100.3100 MANUAL DIFF CELLS COUNTED Normal 100 LAB L100.3300 0-5 % BAND 1 Normal LAB L100.3400 0-1 % META 2 High LAB L100.3500 0-0 MYELO 1 High LAB L100.3700 0-0 % BLAST 73 High alert LAB L100.3800 19-41 % LYMPH 22 Normal LAB L100.4000 0-5 % EOS 1 Normal LAB L100.5500 ADEQ PLT EST Normal MKD DEC LAB L100.7300 ANISO 1+ Normal LAB L100.7500 POLYCHROMASIA Normal RARE LAB L100.2620 2.0-7.7 X10 Low 3/uL Absolute Neut 0.4 LAB L100.2720 0.83-4.51 X10 3/ul Absolute Lymph Normal 2.13 LAB L100.9900 PATH REV Normal Reviewed Result Comment: Numerous immature cells consistent with blasts are noted. Normocytic anemia. Thrombocytopenia. As per patient's EMR, the patient has known history of AML. Clinical correlation necessary. Ronan Anglin M.D. 10/21/18 AMENDED REPORT 10/21/18 1501 PATH REV previously reported as: March kaleb Performed By: #### L100.0100 #### [facility] [address] [place], [address] VANCOMYCIN, TROUGH Collected: 10/19/2018 Status: F Source: [place] LEVEL 8:24 AM [facility] REPOSITORY Order Comment: Comments: Draw 30 min prior to vanco dose due @0900 Time Medication is to be Given? 0900 TYPE CODE TESTS RESULT OUT OF RANGE REFERENCE UNITS LAB L501.8820 5.0-15.0 ug/mL Normal VANCO, TROUGH 7.7 Result Comment: VANCOMYCIN STANDARED DRUG THERAPY TROUGH LEVEL: 5.0 - 15.0 mg/L VANCOMYCIN HIGH INTENSITY THERAPY TROUGH LEVEL: 15.0 - 20.0 mg/L High Intensity therapy recommended for serious life threatening infections include: - Meningitis -Endocarditis -Pneumonia (Ventilator/Healtcare Associated) -Sepsis PLEASE CONTACT PHARMACY SERVICES (#[id number]) FOR INTERPRETATION OF RESULTS. Performed By: #### L501.8820 #### [facility] [address] [place], [place], [address] ASPERGILLUS ANTIBODIES Collected: 10/19/2018 Status: F Source: [place] 8:24 AM [facility] REPOSITORY TYPE CODE TESTS RESULT OUT OF RANGE REFERENCE UNITS LAB L3500.3700 Neg:<1:1 Asp. Normal fumigatus Negative LAB L3500.3800 Neg:<1:1 Asp. Normal flavus Negative LAB L3500.3900 Neg:<1:1 Asp. Normal niger Negative Result Comment: Performed at: [address] [id number] Eligibility Clerk: Farhad Warner MD, Phone: [phone] Performed By: #### L3500.3600 #### [facility]refer to [facility] for specific site[facility] refer to report for address and phone number CBC W/DIFF, AUTOMATED Collected: 10/19/2018 Status: C Source: [place] 5:45 AM [facility] REPOSITORY TYPE CODE TESTS RESULT OUT OF RANGE REFERENCE UNITS LAB L100.1000 4.4-11.0 K/mm3 Normal WBC 9.2 LAB L100.1200 4.2-5.4 M/mm3 Low RBC 2.66 LAB L100.1300 12.0-15.0 g/dl Low HGB 7.9 LAB L100.1400 37-47 % Low HCT 24.2 LAB L100.1500 81-99 fL Normal MCV 91.0 LAB L100.1600 27.0-32.0 pg Normal MCH 29.7 LAB L100.1700 32-36 g/gl Normal MCHC 32.6 LAB L100.1810 11.6-14.6 % High RDW CV 18.7 LAB L100.1820 35.1-43.9 fl High RDW SD 58.1 LAB L100.1900 150-450 K/mm3 Low alert PLT 7 Result Comment: RESULTS CALLED TO [facility] 10/19/18 0714 French Aguirre. REPORT READ BACK BY SAME. LAB L100.3100 MANUAL DIFF Normal CELLS COUNTED 100 LAB L100.3200 47-70 % Low 1 SEGS LAB L100.3700 0-0 % High 59 alert BLAST LAB L100.3800 19-41 % 39 Normal LYMPH LAB L100.4000 0-5 % 1 Normal EOS LAB L100.4400 0-5 % 1 Normal NRBC,MANUAL CT LAB L100.5500 ADEQ Normal PLT EST MKD DEC LAB L100.7000 NORM C AND NORMAL C N Normal RED CELL CHROM MORPH LAB L100.7300 1+ Normal ANISO LAB L100.9900 Normal PATH REV Reviewed Result Comment: Numerous immature cells consistent with blasts are noted. As per patient's EMR, the patient has known history of AML. Normocytic anemia. Thrombocytopenia. Clinical correlation necessary. Ronan Anglin M.D. 10/21/18 AMENDED REPORT 10/21/18 1448 PATH REV previously reported as: March kaleb Performed By: #### L100.0100 #### [facility] [address] [place], [place], [address] Observed: 10/18/2018 Status: F Source: [place] CULTURE, [place] 11:07 PM [facility] REPOSITORY Gram Stain Acceptable Specimen? Yes (<25 Epithelial cells per/lpf) Gram Stain Rare White Blood Cells No organisms seen Resp. Culture Mixed normal respiratory tawnya. No Haemophilus, Streptococcus pneumoniae, beta-hemolytic Streptococcus or Staphylococcus aureus isolated. Performed By: #### M100.0800 #### [facility] [address] [place], [address] TYPE AND SCREEN Collected: 10/18/2018 Status: F Source: [place] 1:47 PM [facility] REPOSITORY Order Comment: CMV NEG? N Number of units to transfuse: 1 Reason for Ordering Blood: Chronic Is there symptomatic anemia? Y Are the blood/blood products to be transfused? Y Is the patient having/had surgery? N PPHR: Number of units to be transfused: 1 CMV NEG?* N CMV NEG? N Give When? When Ready Irradiated? N Leukodepleted? Y Comments: Number of units to be transfused: 1 Reason for Type AND Screen/Red Cells: ANEMIA TYPE CODE TESTS RESULT OUT OF RANGE REFERENCE UNITS LAB B10.0800 O Normal BLOOD TYPE GEL NEGATIVE LAB B100.4000 Normal Antibody NEGATIVE Screen Performed By: #### B101.7450 #### [facility] [address] [place], [address] Collected: 10/18/2018 Status: F Source: [place] 1:47 PM [facility] REPOSITORY TYPE CODE TESTS RESULT OUT OF REFERENCE UNITS RANGE LAB U100.0000 [id number] TRANSFUSED PRODUCT: T AND S with Crossmatch, Red Cells COUNT: 1 Performed By: #### U100.0000 #### Non-[facility] - refer to report for specific site PPHR Collected: 10/18/2018 Status: F Source: [place] 1:47 PM [facility] REPOSITORY TYPE CODE TESTS RESULT OUT OF REFERENCE UNITS RANGE LAB U100.0700 [id number] TRANSFUSED PRODUCT: Platelets Apheresis PPHR LR SD COUNT: 1 Performed By: #### U100.0700 #### [facility] - refer to report for specific site CONSULTATION Observed: 10/18/2018 Status: F Source: [place] 11:59 AM [facility] REPOSITORY [facility] Medical Records Department [address] [facility] [place] [address] Consultation 10/18/18 1100 MR#: [id number] Acct: [id number] Name: TARI BLACK Rep #: [id number] : 1945 73 From: Rashaun Bansal MD PCP: Stephane Knapp DO Status: ADM IN [facility] Problem List (1) Neutropenic fever Status: Acute (2) Pancytopenia Status: Acute (3) AML (acute myeloblastic leukemia) Status: Chronic Qualifiers: (4) HTN (hypertension) Status: Chronic Qualifiers: (5) Obesity Status: Chronic Qualifiers: Reason for Consult Date of Consultation: 10/18/18 Reason for Consultation: Possible bronchoscopy History of Present Illness: The patient is a 73 year old F with past medical history listed below, who presented to [facility] on 10/17/2018 secondary to fever. Patient had just been discharged 2 days prior when she was treated for neutropenic fever secondary to reported pneumonia. Patient also has a history of anemia and thrombocytosis. Patient denied any nausea, vomiting, diarrhea or dysuria on presentation. Patient did have a mild cough and reported some mild shortness of breath, but admittedly was not moving around that much. Patient denied any chest pain. Patient reported that she had developed some mild hemoptysis that she attributes to trying to get stuff up. On presentation to the emergency room, patient was noted to have a platelet count of 7000, lactate of 0.[address] of the chest showing a dense left lower lobe infiltrate and nodular density in the right upper lobe. Dr. Knapp was consulted and there was some concern for possible aspergillosis, so patient was admitted to the floor, placed on empiric antibiotics and pulmonary was consulted for a possible bronchoscopy. Patient reports she is relatively unchanged compared to admission. Patient does not believe that her previous hospitalization led to much improvement in her overall status. Patient does report some mild hemoptysis this morning, but no chest pain. Patient denies any exposure to asbestos or TB in the past. Patient does not have a significant travel history. 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 Patient denies any other environmental exposures. Patient's last chemotherapy was approximately 2 weeks ago. Review of systems otherwise negative x10 systems. 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 Left lower lobe infiltrate right upper lobe nodular density was appreciated. No significant emphysematous changes noted. - Physical Exam General: Alert, Oriented x3, Cooperative, No apparent distress, - - Obese. Speaking in full sentences. HEENT: Atraumatic, PERRLA, EOMI, Normocephalic, - - No scleral icterus or injection noted. Pale conjunctivae. Oral: Moist Mucosa, No Gingival or Mucosal Lesions/ Ulcerations Neck: Supple, No JVD, No Nodes, Trachea Midline Lungs: No rhonchi, No wheeze, No rales, Diminished, - - Symmetric expansion. Fair effort. Cardiovascular: Regular rate, Regular Rhythm, Normal S1, Normal S2, No murmurs, No rub noted, No Gallop Abdomen: Bowel Sounds Present, Soft, Non Tender, Non-Distended, Obese Extremities: No clubbing, No cyanosis, Edema - Trace lower extremity Skin: No rashes, No breakdown Musculoskeletal: No Tenderness to Palpation of Joints or Extremities Lymphatic: No Cervical, Supraclavicular, or Inguinal Adenopathy Neurological: Cranial nerves II-XII grossly intact, Neuro grossly intact, Motor Exam 5/5 strength throughout Psych/Mental Status: Alert and oriented to time, place, person, mood and affect Vital Signs Temp Pulse Resp BP Pulse Ox 36.8 C 99 16 135/68 H 92 10/18/18 06:11 10/18/18 06:11 10/18/18 06:11 10/18/18 06:11 10/18/18 07:10 Oxygen Delivery Method Room Air Weight: 91.626 kg Body Mass Index (BMI) 34.7 Intake and Output for Last 24 Hours Intake Total 1336 / 1336 636 / 636 Output Total 700 / 700 1000 / 1000 Balance 636 / 636 -364 / -364 Microbiology Past 72 Hours 10/17/18 13:00 Urine Culture - Preliminary Urine, Clean Catch Culture exhibits no growth. Laboratory Tests Past 24 Hrs WBC RBC Hgb Hct MCV WBC 7.7 RBC 2.53 L Hgb 7.5 L Hct 23.1 L MCV 91.3 MCH 29.6 MCHC 32.5 RDW 19.0 H RDW Differential 59.5 H Plt Count 3 L* Clinical Impression(s) from Imaging Studies Chest X-Ray 10/17/18 11:12 IMPRESSION: Persistent left lower lobe infiltrate with blunting of the left costophrenic angle. There has been improvement as compared to prior study. Electronically Signed: Bobby Birmingham MD at 12:19 EST Tel [phone], Service support , Chest CT 10/17/18 13:55 IMPRESSION: Dense infiltration in the left lower lobe with a small left pleural effusion. Minimal atelectasis and/or scarring at the right lung base. 1.8 cm x 1.9 cm irregular nodular density in the right upper lobe. Follow-up is recommended. Electronically Signed: Bobby Birmingham MD at 14:58 EST Tel [phone], Service support , Assessment/Plan All Active Problems Neutropenic fever (Acute) Sepsis (Acute) Pancytopenia (Acute) HCAP (healthcare-associated pneumonia) (Acute) RECOMMENDATIONS: 1. Continue IV antibiotics 2. Await faith cultures 3. Possible bronchoscopy on Saturday 4. Attempt to platelet count of 30,000 5. Await oncology recommendations IMPRESSIONS: 1. Neutropenic fever with lung infiltrates Some concern for aspergillosis leading to neutropenic fever. Patient does have significant pancytopenia with blasts. Doubt pleural effusion is large enough for thoracentesis, even diagnostic. Bronchoscopy would be an option, but typically platelet counts should be higher than 30,000 to limit bleeding complications. This can be limited by using an oral approach. Risks and benefits were reviewed with the patient and she is agreeable to moving forward with bronchoscopy if necessary. Continue IV antibiotics for now. Await oncology recommendations. 2. AML/advanced age/pancytopenia/recent chemotherapy Complicates care, management, recovery and prognosis. Transfusions per oncology. Given the amount of platelets that would be required to get 30,000, Lasix may be necessary. Code Visit Inpatient E AND M: 10227 Init Hosp L3 10/18/18 1159 <Electronically signed by Rashaun Bansal MD> Date Rashaun Bansal MD Cosigner Signature (if applicable): Date CC: Rashaun Bansal MD; Stephane Knapp DO Signed BASIC METABOLIC Collected: 10/18/2018 Status: F Source: [place] PROFILE ([facility]) 6:15 AM [facility] REPOSITORY TYPE CODE TESTS RESULT OUT OF RANGE REFERENCE UNITS LAB L501.0100 74-106 mg/dL High GLU 110 Result Comment: Fasting Glucose result from 100 to 125 mg/dL suggests IMPAIRED HOMEOSTASIS per A.D.A. criteria. Please note revised GLUCOSE reference range effective 2017. LAB L501.1000 7-18 mg/dL Normal BUN 11 LAB L501.1100 0.55-1.02 mg/dL Normal CREAT,SERUM 0.65 Result Comment: The validity of the calculated GFR AND GFRAA in patients over 70 years has not been determined. Clinical correlation is essential. LAB L501.1110 >60 mL/min Normal EST GFR 95 Result Comment: Non- GFR Calc LAB L501.1115 >60 mL/min Normal EST GFR - AA 115 Result Comment: GFR Calc LAB L501.1255 ml/min Normal Estimated CRCL 41.97 LAB L501.1300 10-20 RATIO Normal BUN/CRE 17.0 LAB L501.2200 8.5-10 mg/dL Normal .1 CA 9.6 LAB L501.5300 136-14 mmol/L Normal 5 NA 140 LAB L501.5600 3.5-5. mmol/L Normal 1 K 3.8 LAB L501.5900 98-107 mmol/L Normal CL 105 LAB L501.6100 21.0-3 mmol/L Normal 2.0 CO2 27.0 LAB L501.6200 5-15 Normal GAP 8 Performed By: #### L500.2500 #### [facility] [address] [place], [address] CBC W/DIFF, AUTOMATED Collected: 10/18/2018 Status: C Source: [place] 6:15 AM [facility] REPOSITORY Order Comment: CRITICAL VALUE VERIFIED. CALLED TO NAVI 10/18/18 0835 Bonny Fam. RESULTS READ BACK BY NAVI SAENZ . TYPE CODE TESTS RESULT OUT OF REFERENCE UNITS RANGE LAB L100.1000 4.4-11.0 K/mm3 WBC Normal 7.7 LAB L100.1200 4.2-5.4 M/mm3 Low RBC 2.53 LAB L100.1300 12.0-15.0 g/dl Low HGB 7.5 LAB L100.1400 37-47 % Low HCT 23.1 LAB L100.1500 81-99 fL MCV Normal 91.3 LAB L100.1600 27.0-32.0 pg MCH Normal 29.6 LAB L100.1700 32-36 g/gl MCHC Normal 32.5 LAB L100.1810 11.6-14.6 % RDW CV High 19.0 LAB L100.1820 35.1-43.9 fl RDW SD High 59.5 LAB L100.1900 150-450 K/mm3 Low PLT alert 3 LAB L100.3100 MANUAL DIFF CELLS COUNTED Normal 100 LAB L100.3700 0-0 % BLAST High alert 95 LAB L100.3800 19-41 % Low LYMPH 5 LAB L100.5500 ADEQ PLT EST Normal MKD DEC LAB L100.7300 ANISO Normal 2+ LAB L100.7600 HYPOCHROMASIA Normal 1+ LAB L100.2620 2.0-7.7 X10 3/uL Low Absolute Neut 0.0 LAB L100.2720 0.83-4.51 X10 3/ul Low Absolute Lymph 0.40 LAB L100.9900 PATH REV Normal Reviewed Result Comment: Numerous immature cells consistent with blasts are noted. As per patient's EMR, the patient has known history of AML. Normocytic anemia. Thrombocytopenia. Clinical correlation necessary. Ronan Anglin M.D. 10/21/18 AMENDED REPORT 10/21/18 1441 PATH REV previously reported as: March kaleb Performed By: #### L100.0100 #### [facility] [address] [place], [address] Observed: 10/17/2018 Status: F Source: [place] LEGIONELLA ANTIGEN 7:05 PM [facility] URINE REPOSITORY Specimen Source: URINE, CLEAN CATCH Legionella, UR Legionella Antigen result interpretation: Negative Presumptive negative for Legionella pneumophila serogroup 1 antigen in urine, suggesting no recent or current infection. Legionella Ag, Urine Negative (See interpretation below) Performed By: #### M300.4500 #### [facility] [address] [place], [address] STREP Observed: 10/17/2018 Status: F Source: [place] PNEUMONIAE ANTIG(UR,CSF) 7:05 PM [facility] REPOSITORY S pneumo Ag URINE INTERPRETATION Negative Urine Presumptive negative for pneumococcal pneumonia, suggesting no current or recent pneumococcal infection. Infection due to S pneumoniae cannot be ruled out since the antigen present in the sample may be below the detection limit of the test. Strep pneumo Test Negative URINE (See interpretation below) Performed By: #### M300.4600 #### [facility] [address] [place], [address] HISTORY AND PHYSICAL Observed: 10/17/2018 Status: F Source: [place] EXAM 5:24 PM [facility] REPOSITORY [facility] Medical Records Department [address] [place] [id number] History and Physical 10/17/18 1626 MR#: [id number] Acct: [id number] Name: TARI BLACK Rep #: [id number] : 1945 73 From: Charan AKBAR PCP: Stephane Knapp DO Status: REG ER Y Location: ED <Charan Garnica - Last Filed: 10/17/18 16:26> Problem List (1) Neutropenic fever Status: Acute (2) HCAP (healthcare-associated pneumonia) Status: Acute (3) Sepsis Status: Acute (4) AML (acute myeloblastic leukemia) Status: Chronic (5) Obesity Status: Chronic History of Present Illness Date of Admission: 10/17/18 Chief Complaint: fever The patient is a 73 year old F recently admitted to the hospital with neutropenic fever, treated with vanc and alexia, transitioned oral levaquin and augmentin, diascharged 2 days prior, who presents to the ER with recurrent fever. She has a hx of AML for which she is treated by Dr. Knapp with chemotherapy, last round 2 weeks prior, with more planned in October. Yesterday and today she had fevers as high as 102.6 last night 101.8 this AM. She has taken tylenol, currently not febrile in the ER. She c/o nonproductive cough, no hemoptysis, with some left lower rib pain on coughing, and is SOB with exertion. She was somewhat dizzy this AM. She has no chills or night sweats. She has some diarrhea and nausea, no abdominal pain. No dysuria. On last admission she had gram positive rods in her sputum and staph epi in her urine. She appears to have left lower lobe pna on CXR and CT here, and on CT a RUL nodular density. 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 Paternal History Items: - - Father with history of CO at age 43. Sibling History Items: - - Sister with a history of lung cancer. Review of Systems Constitutional: Reports: Fever, Weakness. Denies: Chills, Weight Change HEENT: Denies: Head Aches, Sinus Congestion, Sinus Drainage Cardiovascular: Denies: Chest Pain, Palpitations Respiratory: Reports: Cough, Pleuritic Pain, Shortness of breath upon exertion. Denies: Shortness of breath at rest, Sputum production Gastrointestinal: Denies: Abdominal Pain, Nausea, Vomiting Genitourinary: Denies: Dysuria Musculoskeletal: Denies: Joint Pain, Joint Tenderness Skin: Denies: Rash, Wounds Neurological: Denies: Numbness, Tingling, Focal weakness Psychiatric: Denies: Anxiety, Depression, Homicidal Ideations, Suicidal Ideations Hematologic/ Lymphatic: Denies: Easy Bruising, Easy Bleeding VTE Information - Inpt Only VTE Present on Admission: No VTE Mechan Device Prophylaxis: SCD's VTE Pharm Prophylaxis ordered?: No Patient Problems: Active and Suspected Problems HCAP (healthcare-associated pneumonia) (Acute) - Physical Exam General: Alert, Oriented x3, Cooperative HEENT: Atraumatic, PERRLA, EOMI, Normocephalic Neck: Supple, No JVD, Negative Carotid Bruits Lungs: Diminished, Rales - faint LLL Cardiovascular: Regular rate, No murmurs Abdomen: Bowel Sounds Present, Soft, Non Tender Extremities: No edema, Capillary Refill Less than 3 Seconds Skin: No rashes, No breakdown Musculoskeletal: No Tenderness to Palpation of Joints or Extremities Neurological: Cranial nerves II-XII grossly intact Psych/Mental Status: Normal Affect, Appropriate, Alert and oriented to time, place, person, mood and affect Vital Signs Temp Pulse Resp BP Pulse Ox 98.0 F 94 16 107/56 L 94 10/17/18 10:45 10/17/18 15:57 10/17/18 15:57 10/17/18 13:30 10/17/18 15:57 Oxygen Delivery Method Room Air Weight: 202 lb Body Mass Index (BMI) 34.7 Laboratory Tests Past 24 Hrs WBC 8.2 RBC 2.75 L Hgb 8.2 L Assessment/Plan All Active Problems Neutropenic fever (Acute) Sepsis (Acute) Pancytopenia (Acute) HCAP (healthcare-associated pneumonia) (Acute) 1. Sepsis 2/2 Neutropenic fever 2/2 HCAP - Vanc/Alexia. Pulm consult. Bronch saturday. Lactate neg. Reculture blood/sputum, obtain urine antigens. UA borderline. Previous resp culture with gram positive cocci and rods, urine with staph epi. She is not hypoxic at rest. Sepsis criteria met with pna present, decreased WBCs and tachycardia. CXR with LLL Pna CT chest with LLL pna, RUL nodular density 2. Pancytopenia 2/2 cancer/chemo, AML - consult Dr. Knapp. Platelets are of particular concern, but this is about what they were last admission. No bleeding/hemoptysis noted. Last chemo 2 weeks prior, next round Oct 27. DVT ppx: SCDs, severely thrombocytopenic. This patient was seen by Charan Garnica PA-C under the supervision of Dr. Frankel. <Luis Frankel - Last Filed: 10/17/18 17:24> Problem List (1) Neutropenic fever Status: Acute History of Present Illness The patient is a 73 year old F just discharged from the the with pneumonia. Presents with 1 day history of fever. Patient has a temperature of 101.8 on the as well as today. Patient advised to go to the emergency room by her. Patient had a CAT scan that showed a left lower lobe infiltrate essentially unchanged from previous. As recommendation by oncology the patient be admitted started on vancomycin and meropenem and have pulmonary see her for a bronchoscopy. [] Past Medical History Allergies No Known Allergies Allergy (Verified 10/11/18 22:58) Smoking Status: Never smoker Tobacco Use: Non-smoker Alcohol: None Drugs: None - *Family History Maternal History Items: - Paternal History Items: - Sibling History Items: - Review of Systems Constitutional: Reports: Fever, Weakness. Denies: Chills, Weight Change HEENT: Denies: Head Aches, Sinus Congestion, Sinus Drainage Cardiovascular: Denies: Chest Pain, Palpitations Respiratory: Reports: Cough, Pleuritic Pain, Shortness of breath upon exertion. Denies: Shortness of breath at rest, Sputum production Gastrointestinal: Denies: Abdominal Pain, Nausea, Vomiting Genitourinary: Denies: Dysuria Musculoskeletal: Denies: Joint Pain, Joint Tenderness Skin: Denies: Rash, Wounds Neurological: Denies: Focal weakness, Numbness, Tingling Psychiatric: Denies: Anxiety, Depression, Homicidal Ideations, Suicidal Ideations Hematologic/ Lymphatic: Denies: Easy Bruising, Easy Bleeding Comment: A 10 point review of systems were negative except as mentioned in the history of present illness and the other review of systems. VTE Information - Inpt Only VTE Present on Admission: No VTE Mechan Device Prophylaxis: None - Due to severe from a cytopenia VTE Pharm Prophylaxis ordered?: No Reason prophylaxis not ordered:: Medical Contraindication - Physical Exam General: Alert, Oriented x3, Cooperative, No apparent distress HEENT: Atraumatic, Normocephalic Oral: Moist Mucosa, No Gingival or Mucosal Lesions/ Ulcerations Neck: No Nodes, Thyroid Normal Size and Texture Lungs: Diminished, - - Crackles left lower lobe Cardiovascular: Regular rate, Regular Rhythm, Normal S1, Normal S2, No murmurs Abdomen: Bowel Sounds Present, Soft, Non Tender, Non-Distended Extremities: No edema, No Calf Tenderness Skin: - - Few petechiae on left upper extremity Musculoskeletal: No Tenderness to Palpation of Joints or Extremities, No Muscle Wasting Psych/Mental Status: Normal Affect, Appropriate Vital Signs Temp Pulse Resp BP Pulse Ox 36.7 C 98 16 137/66 H 97 10/17/18 10:45 10/17/18 17:14 10/17/18 17:14 10/17/18 17:14 10/17/18 17:14 Oxygen Delivery Method Room Air Weight: 91.626 kg Body Mass Index (BMI) 34.7 Laboratory Tests Past 24 Hrs WBC 8.2 RBC 2.75 L Hgb 8.2 L Assessment/Plan Patient seen and examined independently. Data reviewed. I agree with the above note by the physician resident programs assistant. 1. Sepsis * Present on arrival * Secondary to neutropenic fever and pneumonia 2. Neutropenic fever * Patient will be on meropenem and vancomycin * Follow-up cultures * Oncology consult 3. Left lower lobe pneumonia * unclear type * check Cx and Ag * pulm toilet 4. thrombocytopenia * less than 10k, will transfuse 5. DVT proph: mechanical andchemical contraindicated given thrombocytopenia. Code Visit Inpatient E AND M: 64180 Init Hosp L3 10/17/18 1641 <Electronically signed by Charan AKBAR> Date Charan AKBAR 10/17/18 1724<Electronically signed by Luis Frankel DO> Cosigner Signature: Date (if applicable) Luis Frankel DO CC: RAFFY Garnica; Luis Fraknel DO; Stephane Knapp DO Signed EMERGENCY DEPARTMENT Observed: 10/17/2018 Status: F Source: [place] SUMMARY 4:17 PM [facility] REPOSITORY [facility] Medical Records Department [address] [place] [address] Emergency Department Summary 10/17/18 1115 MR#: [id number] Acct: [id number] Name: TARI BLACK Rep #: [id number] : 1945 73 From: Giles Wagner MD PCP: Stephane Knapp DO Status: REG ER - ER Visit Summary Date of Service: 10/17/18 Chief Complaint: Fever History of Present Illness: The patient is a 73 F history of leukemia currently on chemotherapy. Last chemotherapy treatment was 2 weeks ago. She was admitted to the hospital and just discharged 2 days ago for recent pneumonia.. Patient also has known anemia and thrombocyte she states last night she had fever as high as 102.6. She denies nausea, vomiting, diarrhea or dysuria. She has had a mild cough with mild shortness of breath. She denies currently any chest pain. There is no hemoptysis. No leg swelling or calf pain. Physical Examination: Well-appearing older female. Vital signs are stable and afebrile. Currently her temperature is 92. She did take Tylenol 2 hours prior to arrival. She is in no distress. HEENT exam unremarkable. Moist mucous membranes. Neck nontender. No meningismus. No lymphadenopathy. Lungs clear to auscultation bilaterally. Heart regular rhythm no murmur. Abdomen soft and nontender. Normal bowel sounds no peritoneal signs. Extremities patient is moving all 4. Calves are nontender without edema or cords. Neurologically patient is awake and alert with no focal motor deficits. Is normal. Sensation is normal. Back nontender. Skin no rashes. Test Results: Chest x-ray shows a left lower lobe infiltrate that is improved according the radiologist compared to the recent study. White count 8. Hemoglobin 8.2. Hematocrit 25. Platelet count of 7000 which is her baseline. Chemistries unremarkable gap is 7 creatinine 0.7. Liver enzymes unremarkable UA normal. Lactic 0.9. Blood cultures pending. CT of the chest with IV contrast as requested by her oncologist she has a dense left lower lobe infiltrate and a nodular density in the right upper lobe. Emergency Department Course and Treatment: Patient will undergo an ED neutropenic workup. Treatment Plan: I did speak to Dr. Knapp the patient's oncologist from [facility]. His concern is with the patient's immunosuppressed state, recent antibiotics, fever and chemotherapy that she may be developing a aspergillosis infection of her lungs. Our plan was to readmit her have her also evaluated by pulmonology for possible bronchoscopy in the next several days. And consider restarting her antibiotics. I discussed this with the hospitalist Dr. Luis eubanks and he wanted me to hold off on starting any antibiotics at this time and he will discuss with the oncologist a plan. Disposition: Admit Impression: Fever Status post chemotherapy for leukemia limited use Recent pneumonia Immunocompromised with anemia and thrombocytopenia secondary to chemotherapy. This note was generated with [employer] dictation software. It may contain incorrect words, spelling, and punctuation that were not noted in review of the chart prior to signing ED Disposition - Plan for ED Patient: Chief Complaint: Fever Referrals: Stephane Knapp, [Primary Care Provider] - What to do if you have Problems For any increased pain, shortness of breath, bleeding, nausea or vomiting, chest pain, or any unexpected problems, contact your Primary Care Provider. Call [employer] [facility] ([phone]) or report to the closest Emergency Room. Call 911 if necessary. 10/17/18 1617 <Electronically signed by Giles Wagner MD> Date Giles Wagner MD Cosigner Signature (If Indicated): Date CC: Stephane Knapp DO CHEST WITH CONTRAST Observed: 10/17/2018 Status: F Source: [place] 1:56 PM [facility] REPOSITORY [facility] Imaging Services [address] [place] [address] Chest WITH Contrast MR#: [id number] Acct: [id number] Name: TARI BLACK Rep #: [id number] : 1945 F 73 From: Bobby Birmingham MD PCP: Stephane Knapp DO Status: REG ER Study: Chest WITH Contrast Date of Exam: 10/17/18 Exam# [id number] Ordering Dr: Giles Wagner MD STUDY: CT CHEST WITH CONTRAST REASON FOR EXAM: Female, 73 years old. History of pulmonary yeast infection. RADIATION DOSAGE (If Supplied By Facility): CTDIvol = ( 10.89 ) mGy, DLP = ( 453.48 ) mGycm TECHNIQUE: Transaxial imaging was performed following intravenous administration of 100 ml of Isovue 370 contrast material. Multiplanar coronal and sagittal images were reformatted. Individualized dose optimization techniques were used for this CT. COMPARISON: None. FINDINGS: There is a 1.8 cm x 1.9 cm irregular nodular density in the right upper lobe. There is evidence of dense infiltration in the left lower lobe with a small left pleural effusion. Minimal atelectasis and/or scarring at the right lung base. There is no demonstrated pleural abnormality. There are calcifications of the coronary arteries. Minimal posterior pericardial thickening. Normal mediastinum. Normal hilar regions. Normal enhanced pulmonary arteries. There is atherosclerotic calcification of the aortic arch with tortuosity and elongation of the aortic arch and descending thoracic aorta. There are multi-level degenerative changes of the thoracic spine. Osteopenia. Increased kyphosis. Calcified granuloma in the right lobe of the liver. Small hiatal hernia. CT/Chest WITH Contrast IMPRESSION: Dense infiltration in the left lower lobe with a small left pleural effusion. Minimal atelectasis and/or scarring at the right lung base. 1.8 cm x 1.9 cm irregular nodular density in the right upper lobe. Follow-up is recommended. Electronically Signed: Bobby Birmingham MD at 14:58 EST Tel [phone], Service support , CC: Giles Wagner MD; Stephane Knapp DO Flight Superintendent: Signed URINALYSIS, COMPLETE Collected: 10/17/2018 Status: F Source: [place] 1:00 PM [facility] REPOSITORY Order Comment: Order Date: 10/17/18 How was Urine Obtained? NEWSPAPER PHOTO EDITOR TO SPECIFY TYPE CODE TESTS RESULT OUT OF RANGE REFERENCE UNITS LAB L400.3000 Yellow COLOR Normal Yellow LAB L400.3050 Clear Normal CLARITY Clear LAB L400.3200 Normal mg/dl Normal GLUCOSE, UR Normal LAB L400.3300 Negative mg/dL Normal BILIRUBIN URINE Negative LAB L400.3400 Negative mg/dl High 5 KETONE UR LAB L400.3465 1.002-1.030 Normal SP.GR. DIPSTX 1.025 LAB L400.3550 5.0 - 8.0 pH UR Normal 5.0 LAB L400.3600 Negative mg/dl High PROT 30 DIPSTX LAB L400.3700 Normal mg/dl High 1 UROBILI LAB L400.3750 Negative Normal NITRITE UR Negative LAB L400.3780 Negative /ul High 10 OCCULT BLOOD-UR LAB L400.3800 Negative /ul High LEUK 25 ESTERASE LAB L400.4050 0-5 /hpf WBC Normal 0-5 SEEN LAB L400.4100 0-5 /hpf Normal RBC-UA 0-5 SEEN LAB L400.4150 5-10 /hpf SQUAM Normal EPI 0-5 SEEN LAB L400.4300 None Seen /hpf 1+ Normal BACTERIA LAB L400.4350 <or=2+ /hpf 0 Normal MUCUS, URINE SEEN LAB L400.4700 <or=2+ /hpf CA OX 1+ Normal CRYSTAL Performed By: #### L400.0001 #### [facility] [address] [place], [place], [address] Observed: 10/17/2018 Status: F Source: [place] CULTURE, URINE 1:00 PM [facility] REPOSITORY Order Date: 10/17/18 Urine Culture Culture exhibits no growth. Performed By: #### M100.0650 #### [facility] [address] [place], [address] Observed: 10/17/2018 Status: F Source: [place] CULTURE, BLOOD (WB) 11:35 AM [facility] REPOSITORY BC No growth in 5 days. Performed By: #### M200.1000 #### [facility] [address] [place], [address] COMPREHENSIVE METABOLIC Collected: 10/17/2018 Status: F Source: [place] FINN 11:30 AM [facility] REPOSITORY TYPE CODE TESTS RESULT OUT OF RANGE REFERENCE UNITS LAB L501.0100 74-106 mg/dL High GLU 118 Result Comment: Fasting Glucose result from 100 to 125 mg/dL suggests IMPAIRED HOMEOSTASIS per A.D.A. criteria. Please note revised GLUCOSE reference range effective 2017. LAB L501.1000 7-18 mg/dL Normal BUN 17 LAB L501.1100 0.55-1.02 mg/dL Normal CREAT,SERUM 0.73 Result Comment: The validity of the calculated GFR AND GFRAA in patients over 70 years has not been determined. Clinical correlation is essential. LAB L501.1110 >60 mL/min Normal EST GFR 82 Result Comment: Non- GFR Calc LAB L501.1115 >60 mL/min Normal EST GFR - AA 100 Result Comment: GFR Calc LAB L501.1255 ml/min Normal Estimated CRCL 41.97 LAB L501.1300 10-20 RATIO High BUN/CRE 23.3 LAB L501.1500 6.4-8. g/dL Normal 2 T PROT 7.3 LAB L501.1800 3.2-5. g/dL Low 0 ALB 2.9 LAB L501.1950 2.2-4. g/dL High 2 GLOB 4.4 LAB L501.2000 0.9-2. RATIO Low 4 A/G 0.7 LAB L501.2200 8.5-10 mg/dL Normal .1 CA 9.9 LAB L501.4100 15-37 U/L Normal AST 20 LAB L501.4305 45-117 U/L Normal ALK P 89 LAB L501.4405 13-56 U/L Normal ALT 19 LAB L501.4600 0.20-1 mg/dL High .00 T BILI 1.30 LAB L501.5300 136-14 mmol/L Normal 5 NA 136 LAB L501.5600 3.5-5. mmol/L Normal 1 K 3.8 LAB L501.5900 98-107 mmol/L Normal CL 102 LAB L501.6100 21.0-3 mmol/L Normal 2.0 CO2 27.0 LAB L501.6200 5-15 Normal GAP 7 Performed By: #### L500.4050 #### [facility] [address] [place], [place], [address] LACTIC ACID Collected: 10/17/2018 Status: F Source: [place] 11:30 AM [facility] REPOSITORY Order Comment: Yes/No query for Sepsis Lactate Rule Y TYPE CODE TESTS RESULT OUT OF RANGE REFERENCE UNITS LAB L503.6005 0.4-2.0 mmol/L Normal LACTIC ACID 0.9 Performed By: #### L503.6005 #### [facility] [address] [place], [place], [address] CBC W/DIFF, AUTOMATED Collected: 10/17/2018 Status: C Source: [place] 11:30 AM [facility] REPOSITORY TYPE CODE TESTS RESULT OUT OF RANGE REFERENCE UNITS LAB L100.1000 4.4-11.0 K/mm3 Normal WBC 8.2 Result Comment: CRITICAL VALUE VERIFIED. CALLED TO SAMRA EUGENE 10/17/18 1236 Shawn King. RESULTS READ BACK BY ANNE MARIE . AMENDED REPORT 10/17/18 1236 WBC previously reported as: 8.2 K/mm3 LAB L100.1200 4.2-5.4 M/mm3 Low RBC 2.75 LAB L100.1300 12.0-15.0 g/dl Low HGB 8.2 LAB L100.1400 37-47 % Low HCT 25.0 LAB L100.1500 81-99 fL Normal MCV 90.9 LAB L100.1600 27.0-32.0 pg Normal MCH 29.8 LAB L100.1700 32-36 g/gl Normal MCHC 32.8 LAB L100.1810 11.6-14.6 % High RDW CV 19.0 LAB L100.1820 35.1-43.9 fl High RDW SD 58.8 LAB L100.1900 150-450 K/mm3 Low alert PLT 7 LAB L100.3100 MANUAL DIFF Normal CELLS COUNTED 100 LAB L100.3200 47-70 % Low SEGS 2 LAB L100.3400 0-1 % Normal META 1 LAB L100.3500 0-0 High MYELO 1 LAB L100.3700 0-0 % High alert BLAST 84 LAB L100.3800 19-41 % Low LYMPH 10 LAB L100.3900 0-10 % Normal MONOCYTE 2 LAB L100.5500 ADEQ Normal PLT EST MKD DEC LAB L100.7000 NORM C AND C NORMAL Normal RED CELL MORPH N CHROM LAB L100.7300 Normal ANISO 1+ LAB L100.2620 2.0-7.7 X10 3/uL Low Absolute Neut 0.2 LAB L100.2720 0.83-4.51 X10 3/ul Low Absolute Lymph 0.82 LAB L100.9900 Normal PATH REV Reviewed Result Comment: Numerous immature cells consistent with blasts are noted. The patient has known history of AML as per patient's EMR. Normocytic anemia. Thrombocytopenia. Clinical correlation necessary. Ronan Anglin M.D. 10/17/18 AMENDED REPORT 10/17/18 1557 PATH REV previously reported as: March Performed By: #### L100.0100 #### [facility] [address] [place], [address] Observed: 10/17/2018 Status: F Source: [place] CULTURE, BLOOD (WB) 11:30 AM [facility] REPOSITORY BC No growth in 5 days. Performed By: #### M200.1000 #### [facility] [address] [place], [address] CHEST PA AND LATERAL Observed: 10/17/2018 Status: F Source: [place] 11:13 AM [facility] REPOSITORY [facility] Imaging Services [address] [place] [address] Chest PA and Lateral MR#: [id number] Acct: [id number] Name: TARI BLACK Rep #: [id number] : 1945 F 73 From: Bobby Birmingham MD PCP: Stephane Knapp DO Status: REG ER Study: Chest PA and Lateral Date of Exam: 10/17/18 Exam# [id number] Ordering Dr: Giles Wagner MD STUDY: X-RAY CHEST REASON FOR EXAM: Female, 73 years old. Left-sided chest pain. Fever. TECHNIQUE: PA and lateral views of the chest. COMPARISON: Comparison is made with prior examination dated October 14, 2018. FINDINGS: EKG electrodes are seen. Persistent left lower lobe infiltrate. There is been a mild degree of improved aeration at the left lung base. There is no demonstrated pleural abnormality. Normal size heart. Normal mediastinum and william. Normal visualized pulmonary arteries. Normal visualized aortic arch and descending thoracic aorta. There are diffuse degenerative changes of the visualized thoracic spine. Increased kyphosis. Normal visualized ribs, clavicles, and shoulders. There is no demonstrated abnormality of the visualized soft tissue structures of the upper abdomen. RAD/Chest PA and Lateral IMPRESSION: Persistent left lower lobe infiltrate with blunting of the left costophrenic angle. There has been improvement as compared to prior study. Electronically Signed: Bobby Birmingham MD at 12:19 EST Tel [phone], Service support , CC: Giles Wagner MD; Stephane Knapp DO Flight Superintendent: Signed 12 LEAD ELECTROCARDIOGRAM Observed: 10/17/2018 Status: F Source: [place] 9:23 AM [facility] REPOSITORY [facility] Cardiovascular Services [address] [place] [address] 12 Lead EKG 10/11/18 1904 MR#: [id number] Acct: [id number] Name: TARI BLACK Rep #: [id number] : 1945 73 From: Seamus Drummond MD Attending Dr: Vianey Evans MD Status: DIS IN Ordering Dr: Aileen Diane MD Date: 10/11/18 Location: [facility] Sex: F C Admitted: 10/11/18 Test Reason : FEVER Blood Pressure : / mmHG Vent. Rate : 105 BPM Atrial Rate : 105 BPM P-R Int : 156 ms QRS Dur : 084 ms QT Int : 322 ms P-R-T Axes : 004 000 -04 degrees QTc Int : 425 ms Sinus tachycardia Otherwise normal ECG Confirmed by CANDACE BURK, SEAMUS ([id number]), deputy editor in chief LISSETTE NEVAREZ ([id number]) on 10/13/2018 2:18:57 PM Referred By: SARAI Confirmed By:SEAMUS DRUMMOND MD 10/13/18 1419 Date Seamus Drummond MD CC: Aileen Diane MD; Vianey Evans MD; Stephane Knapp DO Signed [place] ABS GR + CBC Collected: 10/16/2018 Status: F Source: [place] 8:27 AM [facility] REPOSITORY TYPE CODE TESTS RESULT OUT OF REFERENCE UNITS RANGE LAB WWBC 3.70-11.00 k/uL [place] WBC 8.84 Result Comment: Result checked and verified No clot detected. LAB WRBC 3.90-5.20 m/uL Low [place] RBC 2.77 LAB WHGB 11.5-15.5 g/dL Low [place] Hemoglobin 8.4 LAB WHCT 36.0-46.0 % Low [place] Hematocrit 26.4 LAB WMCV 80.0-100.0 fL [place] MCV 95.3 LAB WMCH 26.0-34.0 pg [place] MCH 30.3 LAB WMCHC 30.5-36.0 g/dL [place] MCHC 31.8 LAB WRDW 11.5-15.0 % [place] RDW High 19.3 LAB WPLT 150-400 k/uL Low [place] Alert Platelet Cnt 6 Result Comment: Result checked and verified No clot detected. Platelet count confirmed by manual review of peripheral blood smear. Final report called to and read back by LEONARDO LEWIS [id number] BY BESSY/NAIN LAB ABGRAN 1.45-7.50 k/uL Absol Low Gran Count <0.03 LAB ABSNUC <0.01 k/uL Absolute nRBC PRELIM WBC=9.27 PLT=4,CALLED TO YUNIOR LEWIS [id number],B RAIZA Performed By: #### WAGCBC #### [facility] [address] [place], [place] [address] ABO RH BLOOD TYPE, Collected: 10/16/2018 Status: F Source: [place] PATIENT 8:25 AM [facility] REPOSITORY Order Comment: PRETRANSFUSION PLT = 4 PERFORMED AT [facility] CMV NEG? N Give When? 10-17-18 @ 1200 Irradiated? N TYPE CODE TESTS RESULT OUT OF RANGE REFERENCE UNITS LAB B10.0800 O Normal BLOOD NEGATIVE TYPE GEL Performed By: #### B10.0010 #### [facility] [address] [place], [place], [address] ABO RH BLOOD TYPE, Collected: 10/16/2018 Status: F Source: [place] PATIENT 8:25 AM [facility] REPOSITORY Order Comment: PRETRANSFUSION PLT = 4 PERFORMED AT [facility] CMV NEG? N Give When? When Ready Irradiated? N TYPE CODE TESTS RESULT OUT OF RANGE REFERENCE UNITS LAB B10.0800 O Normal BLOOD NEGATIVE TYPE GEL Performed By: #### B10.0010 #### [facility] [address] [place], [address] PPHR Collected: 10/16/2018 Status: F Source: [place] 8:25 AM [facility] REPOSITORY TYPE CODE TESTS RESULT OUT OF REFERENCE UNITS RANGE LAB U100.0700 [id number] TRANSFUSED PRODUCT: Platelets Apheresis PPHR LR SD COUNT: 1 Performed By: #### U100.0700 #### Non-[facility] - refer to report for specific site DISCHARGE SUMMARY Observed: 10/15/2018 Status: F Source: [place] 3:29 PM [facility] REPOSITORY [facility] Medical Records Department [address] [facility] [place] [address] Discharge Summary 10/15/18 1151 MR#: [id number] Acct: [id number] Name: TARI BLACK Raimundo Rep #: [id number] : 1945 73 From: Vianey Evans MD PCP: Stephane Knapp DO Status: ADM IN Location: [place] [address] Discharge Date and Diagnosis - Problem List Patient Problems: Active and Suspected Problems Neutropenic fever (Acute) Sepsis (Acute) Pancytopenia (Acute) Date of Admission: 10/11/18 Date of Discharge: 10/15/18 - Primary Discharge Diagnosis Active and Suspected Problems Neutropenic fever (Acute) Sepsis (Acute) Pancytopenia (Acute) - Secondary Discharge Diagnosis Chronic Problems AML (acute myeloblastic leukemia) (Chronic) HTN (hypertension) (Chronic) Obesity (Chronic) Hospital Course and Treatment Imaging Results: Diagnostic Data Abdomen/Pelvis CT 10/11/18 18:38 IMPRESSION: Large consolidation of the left lower lobe. Smaller infiltrate of the medial right lower lobe. Negative for pleural effusion. No acute abdominal findings. Elongated right liver lobe typical of a Hai's lobe. Mild splenomegaly. Normal gallbladder and pancreas. Normal size of the kidneys bilaterally without hydronephrosis or ureteral stones. One nonobstructing cortical calcification of the left kidney. Renal cysts. Negative for evidence of bowel obstruction, perforation or inflammatory bowel changes. Diverticulosis without evidence of acute diverticulitis. Negative for pelvic mass or free fluid of the pelvis. Electronically Signed: Beena Skaggs MD at 20:48 EST , Service support , Chest X-Ray 10/14/18 09:02 IMPRESSION: Stable infiltrate in the left lower lobe with small left pleural effusion. Blunting of the right costophrenic angle. Electronically Signed: Bobby Birmingham MD at 15:04 EST Tel [phone], Service support , oncology- Dr Jimenez Operations: None Procedures: None Summary of Care Provided: [] Mrs. Black is a 73-year-old female with a past medical history of hypertension, obesity, urine retention with intermittent self-catheterization as needed and recently diagnosed AML being treated with chemotherapy by Dr. Knapp. She presented to the emergency department at [facility] on 10/11/2018 complaining of generalized weakness, fatigue, poor appetite, nausea/vomiting and abdominal discomfort since her chemotherapy 10/10/2018. Temperature was elevated in the emergency room to 100 F (despite OP Levaquin)and the heart rate was increased to 108 bpm. She was 93% saturated on room air. Hemoglobin was low at 7.6 and platelets were 7000. White blood cell count was unrecordable. Lactic acid was 0.8. Urinalysis had no significant pyuria however the patient has severe leukopenia. Chest x-ray showed a focal increased area of density in the posterior left base secondary to possible infiltrate. CT of the abdomen and pelvis revealed a large consolidation in the left lower lobe with a smaller infiltrate in the right middle lobe. There were no acute abdominal findings. Gallbladder and pancreas appeared normal. She received vancomycin and meropenem in the emergency room and admitted to the hospital with a diagnosis of sepsis secondary to HCAP in a patient who is neutropenic on chemotherapy. Meropenem and vancomycin were continued at admission. Patient was given 1 unit of apheresed platelets and 1 unit of packed red blood cells. Patient has been seen by oncology- Dr. Knapp. Oncology did not recommend growth factors. She was transfused a total of 3 units of leucoreduced apheresed platelets. However, platelets remained refractory to transfusion and was still 8 at time of discharge. Urine culture grew Staph epidermidis, and mixed gram positive organisms; sputum and blood cultures were negative. SHe remained stable, and became afebrile. She was discharged home on 10/15/18; she is to follow up with her PCP and oncologist. Platelets to be checked by oncologist at her next visit in 3 days time, and to get transfusion as needed. She was discharged with a script for PO augmentin 875mg bic x 7 days. Patient seen and examined prior to discharge. She had no complaints and felt well. She denied any fever, chills, coughm, chest pain, SOB, abdominal pain, diarrhea or vomiting. Review of systems is otherwise negative. o/e: Vital Signs Height 5 ft 4 in Weight: 210 lb 8.663 oz Weight in Pounds 210.5 lbs Pulse Ox 96 General: Alert, Oriented x3, Cooperative, No apparent distress, Well developed HEENT: Atraumatic, PERRLA, EOMI, Normocephalic Oral: Moist Mucosa Neck: Supple, No Nuchal Rigidity, Lungs: Clear to auscultation, Normal air movement, No rhonchi, No wheeze, No rales Cardiovascular: Regular rate, Regular Rhythm, Normal S1, Normal S2, No murmurs, Abdomen: Bowel Sounds Present, Soft, Non Tender, Non-Distended Extremities: No edema, Capillary Refill Less than 3 Seconds Skin: No rashes, No breakdown Neurological: Cranial nerves II-XII grossly intact, Neuro grossly intact, Psych/Mental Status: Normal Affect, Appropriate, Alert and oriented to time, place, person, mood and affect Plan as described above. Patient Problems: Active and Suspected Problems Neutropenic fever (Acute) Sepsis (Acute) Pancytopenia (Acute) - Physical Exam Vital Signs Temp Pulse Resp BP Pulse Ox 98.7 F 96 20 H 144/75 H 96 10/15/18 08:43 10/15/18 08:43 10/15/18 08:43 10/15/18 08:43 10/15/18 08:43 Oxygen Flow Rate (L/min) 1 Oxygen Delivery Method Room Air Weight: 210 lb 8.663 oz Body Mass Index (BMI) 36.1 Intake and Output for Last 24 Hours Intake Total 3891 / 3891 4285 / 4285 3796 / 3796 Output Total 4050 / 4050 3000 / 3000 Balance -159 / -159 1285 / 1285 3796 / 3796 Microbiology Past 72 Hours 10/12/18 21:20 Gram Stain - Final Sputum, Expectorated/Coughed Respiratory Culture - Final 10/11/18 19:30 Urine Culture - Final Laboratory Tests Past 24 Hrs Diff Path Review Reviewed Discharge Activity: Return to Normal Activity Weight Bearing Status: Weight bearing as tolerated Call your doctor if you observe: Fever of 101 or Higher Home Medications: Medications to take at Discharge Acyclovir 400 mg PO BID 10/11/18 Ondansetron [Zofran] 8 mg PO Q8H PRN PRN 10/11/18 levoFLOXacin tablet [Levaquin tablet] 500 mg PO DAILY 10/11/18 Amox/Clavulanate Tablet [Augmentin Tablet] 875 mg PO BIDCM #14 tablet 10/15/18 Following Prescrptions Were Given to Patient: Amox/Clavulanate Tablet [Augmentin Tablet] 875 mg PO BIDCM #14 tablet Primary Care Physician: Stephane Knapp DO [Primary Care Provider] - Please follow up with your Primary Care Physician in: 1 week Patient Instructions: Neutropenia, What Is Pneumonia?, Pneumonia Treatment Disposition: Home Minutes spent on discharge:: 45 Patient Condition:: Stable Medical Necessity - Tobacco Use Smoking Status: Never smoker Tobacco Use: Non-smoker Meaningful Use Info Meaningful Use Diagnoses (Choose all that apply): None applicable Code Visit [place]patient [place] M: [address] Disch Hosp 10/15/18 1529 <Electronically signed by Vianey Evans MD> Date Vianey Evans MD Cosigner Signature (if applicable): Date CC: Vianey Evans MD; Stephane Knapp DO Signed DISCHARGE INSTRUCTION Observed: 10/15/2018 Status: F Source: [place] 11:51 AM [facility] REPOSITORY [facility] Medical Records Department [address] [place] [address] Instructions for Home/Discharge Instructions 10/15/18 1148 MR#: [id number] Acct: [id number] Name: TARI BLACK Rep #: [id number] : 1945 73 From: Vianey Evans MD PCP: Stephane Knapp DO Status: ADM IN - Discharge Diagnoses Current Active Problems: Current Active and Chronic Problems Neutropenic fever (Acute) Sepsis (Acute) Pancytopenia (Acute) AML (acute myeloblastic leukemia) (Chronic) HTN (hypertension) (Chronic) Obesity (Chronic) You will use the following diet at home:: Cardiac Your food should be the consistency of: Regular Your liquids should be the consistency of: Regular/Thin Discharge Activity: Return to Normal Activity Weight Bearing Status: Weight bearing as tolerated Call your doctor if you observe: Fever of 101 or Higher Instructions: Neutropenia, What Is Pneumonia?, Pneumonia Treatment Additional Instructions: platelets to be followed up with repeat CBC in oncologist's office on Saturday10/17/18 Allergies/Adverse Reactions: Allergies No Known Allergies Allergy (Verified 10/11/18 22:58) Medications to take at Discharge Acyclovir 400 mg PO BID 10/11/18 Ondansetron [Zofran] 8 mg PO Q8H PRN PRN 10/11/18 levoFLOXacin tablet [Levaquin tablet] 500 mg PO DAILY 10/11/18 Amox/Clavulanate Tablet [Augmentin Tablet] 875 mg PO BIDCM #14 tablet 10/15/18 The following prescriptions were given: Amox/Clavulanate Tablet [Augmentin Tablet] 875 mg PO BIDCM #14 tablet Primary Care Physician: Stephane Knapp DO [Primary Care Provider] - Please follow up with your Primary Care Physician in: 1 week Test Results: Test results from this visit will be discussed in further detail at your follow-up appointment, if applicable. Proposed Discharge Date: 10/15/18 10/15/18 1151 <Electronically signed by Vianey Evans MD> Date Vianey Evans MD CC: Stephane Knapp DO CHEST PA AND LATERAL Observed: 10/14/2018 Status: F Source: [place] 9:03 AM [facility] REPOSITORY [facility] Imaging Services [address] [place] [address] Chest PA and Lateral MR#: [id number] Acct: [id number] Name: TARI BLACK Rep #: [id number] : 1945 F 73 From: Bobby Birmingham MD PCP: Stephane Knapp DO Status: ADM IN Study: Chest PA and Lateral Date of Exam: 10/14/18 Exam# [id number] Ordering Dr: Nirali Jimenez MD STUDY: X-RAY CHEST REASON FOR EXAM: Female, 73 years old. Cough. TECHNIQUE: PA and lateral views of the chest. COMPARISON: Comparison is made with prior study dated the 2017. FINDINGS: Stable left lower lobe infiltration with some blunting of left costophrenic angle. Blunting of the right cuspid angle. Normal size heart. Normal mediastinum and william. Normal visualized pulmonary arteries. Normal visualized aortic arch and descending thoracic aorta. There are diffuse degenerative changes of the visualized thoracic spine. Increased kyphosis. There is degenerative osteoarthritis of the bilateral shoulders. There is no demonstrated abnormality of the visualized soft tissue structures of the upper abdomen. RAD/Chest PA and Lateral IMPRESSION: Stable infiltrate in the left lower lobe with small left pleural effusion. Blunting of the right costophrenic angle. Electronically Signed: Bobby Birmingham MD at 15:04 EST Tel [phone], Service support , CC: Nirali Jimenez MD; Stephane Knapp DO Flight Superintendent: Signed BASIC METABOLIC Collected: 10/14/2018 Status: F Source: [place] PROFILE (BMP) 7:00 AM [facility] REPOSITORY TYPE CODE TESTS RESULT OUT OF RANGE REFERENCE UNITS LAB L501.0100 74-106 mg/dL High GLU 109 Result Comment: Fasting Glucose result from 100 to 125 mg/dL suggests IMPAIRED HOMEOSTASIS per A.D.A. criteria. Please note revised GLUCOSE reference range effective 2017. LAB L501.1000 7-18 mg/dL Normal BUN 9 LAB L501.1100 0.55-1.02 mg/dL Normal CREAT,SERUM 0.66 Result Comment: The validity of the calculated GFR AND GFRAA in patients over 70 years has not been determined. Clinical correlation is essential. LAB L501.1110 >60 mL/min Normal EST GFR 92 Result Comment: Non- GFR Calc LAB L501.1115 >60 mL/min Normal EST GFR - AA 111 Result Comment: GFR Calc LAB L501.1255 ml/min Normal Estimated CRCL 41.97 LAB L501.1300 10-20 RATIO Normal BUN/CRE 13.5 LAB L501.2200 8.5-10 mg/dL Normal .1 CA 9.7 LAB L501.5300 136-14 mmol/L Normal 5 NA 140 LAB L501.5600 3.5-5. mmol/L Normal 1 K 3.6 LAB L501.5900 98-107 mmol/L Normal CL 107 LAB L501.6100 21.0-3 mmol/L Normal 2.0 CO2 27.0 LAB L501.6200 5-15 Normal GAP 6 Performed By: #### L500.2500 #### [facility] [address] [place], [address] CBC W/DIFF, AUTOMATED Collected: 10/14/2018 Status: C Source: [place] 7:00 AM [facility] REPOSITORY TYPE CODE TESTS RESULT OUT OF RANGE REFERENCE UNITS LAB L100.1000 4.4-11.0 K/mm3 Normal WBC 8.5 LAB L100.1200 4.2-5.4 M/mm3 Low RBC 2.82 LAB L100.1300 12.0-15.0 g/dl Low HGB 8.6 LAB L100.1400 37-47 % Low HCT 26.8 LAB L100.1500 81-99 fL Normal MCV 95.0 LAB L100.1600 27.0-32.0 pg Normal MCH 30.5 LAB L100.1700 32-36 g/gl Normal MCHC 32.1 LAB L100.1810 11.6-14.6 % High RDW CV 19.0 LAB L100.1820 35.1-43.9 fl High RDW SD 58.9 LAB L100.1900 150-450 K/mm3 Low alert PLT 8 Result Comment: RESULTS CALLED TO CROW ROJO 10/14/18 0857 Nida Bowman. REPORT READ BACK BY SAME. LAB L100.2620 2.0-7.7 X10 3/uL Low Absolute Neut 0.1 Result Comment: AMENDED REPORT 10/14/18 1003 Absolute Neut previously reported as: 0.5 L X10^3/uL LAB L100.2720 0.83-4.51 X10 3/ul Normal Absolute Lymph 3.06 Result Comment: AMENDED REPORT 10/14/18 1003 Absolute Lymph previously reported as: 6.63 H X10^3/ul LAB L100.3100 MANUAL DIFF Normal CELLS COUNTED 100 LAB L100.3200 47-70 % Low 1 SEGS LAB L100.3700 0-0 % High 63 alert BLAST LAB L100.3800 19-41 % 36 Normal LYMPH LAB L100.5500 ADEQ Normal PLT EST MKD DEC LAB L100.7000 NORM C AND NORMAL C Normal RED CELL NORM C+C MORPH LAB L100.9900 Normal PATH REV Reviewed Result Comment: Numerous immature cells consistent with blasts are noted. As per patient's EMR, the patient has known history of AML. Normocytic anemia. Thrombocytopenia. Clinical correlation necessary. Ronan Anglin M.D. 10/14/18 AMENDED REPORT 10/14/18 1211 PATH REV previously reported as: March Performed By: #### L100.0100 #### [facility] [address] [place], [address] VANCOMYCIN, TROUGH Collected: 10/13/2018 Status: F Source: [place] LEVEL 8:16 PM [facility] REPOSITORY Order Comment: Time Medication is to be Given? 2030 TYPE CODE TESTS RESULT OUT OF REFERENCE UNITS RANGE LAB L501.8820 5.0-15.0 ug/mL Low VANCO, TROUGH 4.3 Result Comment: VANCOMYCIN STANDARED DRUG THERAPY TROUGH LEVEL: 5.0 - 15.0 mg/L VANCOMYCIN HIGH INTENSITY THERAPY TROUGH LEVEL: 15.0 - 20.0 mg/L High Intensity therapy recommended for serious life threatening infections include: - Meningitis -Endocarditis -Pneumonia (Ventilator/Healtcare Associated) -Sepsis PLEASE CONTACT PHARMACY SERVICES (#[id number]) FOR INTERPRETATION OF RESULTS. Performed By: #### L501.8820 #### [facility] [address] [place], [address] COMPREHENSIVE METABOLIC Collected: 10/13/2018 Status: F Source: [place] PROFIL 6:00 AM [facility] REPOSITORY TYPE CODE TESTS RESULT OUT OF RANGE REFERENCE UNITS LAB L501.0100 74-106 mg/dL Normal GLU 105 Result Comment: Fasting Glucose result from 100 to 125 mg/dL suggests IMPAIRED HOMEOSTASIS per A.D.A. criteria. Please note revised GLUCOSE reference range effective 2017. LAB L501.1000 7-18 mg/dL Normal BUN 7 LAB L501.1100 0.55-1.02 mg/dL Normal CREAT,SERUM 0.63 Result Comment: The validity of the calculated GFR AND GFRAA in patients over 70 years has not been determined. Clinical correlation is essential. LAB L501.1110 >60 mL/min Normal EST GFR 97 Result Comment: Non- GFR Calc LAB L501.1115 >60 mL/min Normal EST GFR - AA 118 Result Comment: GFR Calc LAB L501.1255 ml/min Normal Estimated CRCL 41.97 LAB L501.1300 10-20 RATIO Normal BUN/CRE 11.1 LAB L501.1500 6.4-8. g/dL Low 2 T PROT 6.3 LAB L501.1800 3.2-5. g/dL Low 0 ALB 2.5 LAB L501.1950 2.2-4. g/dL Normal 2 GLOB 3.8 LAB L501.2000 0.9-2. RATIO Low 4 A/G 0.7 LAB L501.2200 8.5-10 mg/dL Normal .1 CA 9.3 LAB L501.4100 15-37 U/L Normal AST 20 LAB L501.4305 45-117 U/L Normal ALK P 107 LAB L501.4405 13-56 U/L Normal ALT 18 LAB L501.4600 0.20-1 mg/dL High .00 T BILI 1.10 LAB L501.5300 136-14 mmol/L Normal 5 NA 141 LAB L501.5600 3.5-5. mmol/L Normal 1 K 3.6 LAB L501.5900 98-107 mmol/L Normal CL 107 LAB L501.6100 21.0-3 mmol/L Normal 2.0 CO2 27.0 LAB L501.6200 5-15 Normal GAP 7 Performed By: #### L500.4050, L501.2300, L501.5200 #### [facility] [address] [place], [place], [id number] PHOSPHORUS Collected: 10/13/2018 Status: F Source: [place] 6:00 AM [facility] REPOSITORY TYPE CODE TESTS RESULT OUT OF RANGE REFERENCE UNITS LAB L501.2300 2.5-4.9 mg/dL Normal PHOS 2.6 Performed By: #### L500.4050, L501.2300, L501.5200 #### [facility] [address] [place], [place], [address] MAGNESIUM Collected: 10/13/2018 Status: F Source: [place] 6:00 AM [facility] REPOSITORY TYPE CODE TESTS RESULT OUT OF RANGE REFERENCE UNITS LAB L501.5200 1.6-2.6 mg/dL Normal MG 2.0 Performed By: #### L500.4050, L501.2300, L501.5200 #### [facility] [address] [place], [address] CBC W/DIFF, AUTOMATED Collected: 10/13/2018 Status: C Source: [place] 6:00 AM [facility] REPOSITORY TYPE CODE TESTS RESULT OUT OF RANGE REFERENCE UNITS LAB L100.1000 4.4-11.0 K/mm3 Normal WBC 9.6 LAB L100.1200 4.2-5.4 M/mm3 Low RBC 2.60 LAB L100.1300 12.0-15.0 g/dl Low HGB 7.7 LAB L100.1400 37-47 % Low HCT 23.7 LAB L100.1500 81-99 fL Normal MCV 91.2 LAB L100.1600 27.0-32.0 pg Normal MCH 29.6 LAB L100.1700 32-36 g/gl Normal MCHC 32.5 LAB L100.1810 11.6-14.6 % High RDW CV 18.9 LAB L100.1820 35.1-43.9 fl High RDW SD 58.4 LAB L100.1900 150-450 K/mm3 Low alert PLT 8 Result Comment: CRITICAL VALUE VERIFIED. CALLED TO QUIN HERNANDEZ 10/13/18 0751 Meggan Wolfe. RESULTS READ BACK BY SAME. LAB L100.3100 MANUAL DIFF Normal CELLS COUNTED 100 LAB L100.3200 47-70 % Low 1 SEGS LAB L100.3500 0-0 1 High MYELO LAB L100.3700 0-0 % 13 High alert BLAST LAB L100.3800 19-41 % 82 High alert LYMPH LAB L100.3900 0-10 % 3 Normal MONOCYTE LAB L100.5500 ADEQ Normal PLT EST MKD DEC LAB L100.7000 NORM C AND NORMAL C Normal RED CELL MORPH NORM C+C LAB L100.2620 2.0-7.7 X10 3/uL Low Absolute Neut 0.1 LAB L100.2720 0.83-4.51 X10 3/ul High Absolute Lymph 7.87 LAB L100.9900 Normal PATH REV Reviewed Result Comment: Immature cells consistent with blasts are noted. As per patient's EMR, the patient has clinical history of AML. Normocytic anemia. Thrombocytopenia. Clinical correlation necessary. Ronan Anglin M.D. 10/13/18 AMENDED REPORT 10/13/18 1157 PATH REV previously reported as: March Performed By: #### L100.0100, L100.4425 #### [facility] [address] [place], [address] NRBC PANEL Collected: 10/13/2018 Status: F Source: [place] 6:00 AM [facility] REPOSITORY TYPE CODE TESTS RESULT OUT OF RANGE REFERENCE UNITS LAB L100.4450 0-5 % Normal NRBC, FLAGGED 0.8 LAB L100.4455 0-5 10 3/uL Normal NRBC # 0.08 Performed By: #### L100.0100, L100.4425 #### [facility] [address] [place], [address] Observed: 10/12/2018 Status: F Source: [place] CULTURE, SPUTUM 9:20 PM [facility] REPOSITORY List Antibiotics Last 48 Hours? meropenem, vancomycin List Antibiotics to be Started? ? admitted 10/11 Gram Stain Acceptable Specimen? Yes (<25 Epithelial cells per/lpf) Gram Stain 1+ White Blood Cells 1+ Epithelial cells 4+ Gram positive rods 3+ Gram positive cocci Resp. Culture Gram positive joao suggestive of a diptheroid. There are no CLSI standards for interpretation of this Drug/Organism combination. ORGANISM 1: Gram positive joao Amount Growth 3+ Performed By: #### M100.0800 #### [facility] [address] [place], [address] CBC-COMPLETE BLOOD CNT Collected: 10/12/2018 Status: F Source: [place] NO DIFF 6:48 PM [facility] REPOSITORY TYPE CODE TESTS RESULT OUT OF RANGE REFERENCE UNITS LAB L100.1000 4.4-11.0 K/mm3 Normal WBC 7.9 LAB L100.1200 4.2-5.4 M/mm3 Low RBC 2.58 LAB L100.1300 12.0-15.0 g/dl Low HGB 7.6 LAB L100.1400 37-47 % Low HCT 23.7 LAB L100.1500 81-99 fL Normal MCV 91.9 LAB L100.1600 27.0-32.0 pg Normal MCH 29.5 LAB L100.1700 32-36 g/gl Normal MCHC 32.1 LAB L100.1810 11.6-14.6 % High RDW CV 19.1 LAB L100.1820 35.1-43.9 fl High RDW SD 59.3 LAB L100.1900 150-450 K/mm3 Low alert PLT 7 Result Comment: RESULTS CALLED TO PITO CARRIZALES RN MS-3 10/12/181939 Dorothy Arevalo. REPORT READ BACK BY SAME . LAB L100.2000 6.2-12.0 fl Test Normal not performed MPV Performed By: #### L100.0500 #### [facility] [address] [place], [address] CONSULTATION Observed: 10/12/2018 Status: F Source: [place] 9:22 AM [facility] REPOSITORY [facility] Medical Records Department [address] [place] [address] Consultation 10/12/18 0707 MR#: [id number] Acct: [id number] Name: TARI BLACK Rep #: [id number] : 1945 73 From: Stephane Knapp DO PCP: Stephane Knapp DO Status: ADM IN Y Location: [place] [id number] Problem List (1) Neutropenic fever Status: Acute (2) AML (acute myeloblastic leukemia) Status: Chronic Qualifiers: Leukemia Active/Remission status: without remission Qualified Code(s): C92.00 - Acute myeloblastic leukemia, not having achieved remission - Consult Date of Consult: 10/12/18 - Reason for Consult HPI: The patient is a 73-year-old female with a past medical history significant for hypertension who was seen by her PCP in July 2018 for increasing fatigue and headache. CBC evidently revealed pancytopenia with 68% blasts on peripheral smear. Patient was admitted directly to [facility]. BONE MARROW ASPIRATE, TOUCH PREPARATION, CLOT SECTION, CORE BIOPSY AND PERIPHERAL BLOOD (A-C): - ACUTE MYELOID LEUKEMIA, SEE COMMENT. COMMENT: Further subclassification requires correlation with clinical presentation and with pending molecular and cytogenetic studies. 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 Patient opted for 'low dose' therapy with Vidaza. Had completed two cycles as of last week. Has chronic thrombocytopenia with highest plt count since diagnosis 15K. Neutropenic from time of diagnosis and was on oral prophylactic Levaquin. Developed fever to 101 last pm. Presented to ED and CBC confirmed neutropenia. CT A/P was done due to complaint of abdominal pain. Incidental LLL infiltrate. Patient has occasional cough chronically with sputum production, but his is chronic. Cannot expectorate sputum. Not short of breath at rest or with walking. No chest pain or wheezing. Had not had rigors in last few days. Bowels had not moved for about 6 days. Moved yesterday. Abdominal pain improved. She says she is feeling better overall this am. Appetite is normal. Fever resolving. Allergies No Known Allergies Allergy (Verified 10/11/18 22:58) Current Medications Acetaminophen (Tylenol) 650 mg PO Q4H PRN PRN PRN Reason: FEVER Hydrocodone Bitart/Acetaminophen (Mandaree 5mg-325mg) 1 - 2 tablet PO Q6H PRN PRN PRN Reason: Moderate-severe pain Acyclovir (Zovirax) 400 mg PO BID JOHANNY Al Hydroxide/Mg Hydroxide (Mylanta Ii) 30 ml PO Q6H PRN PRN PRN Reason: Gastric burning Albuterol Sulfate (Ventolin Aerosols) 2.5 mg INHALATION Q2H PRN PRN PRN Reason: SHORTNESS OF BREATH Diphenhydramine HCl (Benadryl) 25 mg IV X1 PRN Famotidine (Pepcid) 20 mg PO BID JOHANNY Hydralazine HCl (Apresoline Iv) 10 mg IV Q4H PRN PRN PRN Reason: SBP > 160 Sodium Chloride () 1,000 mls @ 125 mls/hr IV .Q8H JOHANNY Last Admin: 10/11/18 23:28 Dose: 125 mls/hr Meropenem 500 mg/ Sodium (Chloride) 60 mls @ 100 mls/hr IV Q6 JOHANNY Last Admin: 10/12/18 05:28 Dose: 100 mls/hr Vancomycin IV Pharmacy to Dose (1 ea/ Sodium Chloride) 500 mls @ 250 mls/hr IV X1 PRN; Protocol PRN Reason: Rx to Dose Sodium Chloride () 250 mls @ 15 mls/hr IV .[id number] PRN PRN Reason: SALINE FLUSH Vancomycin HCl 1,250 mg/ (Sodium Chloride) 275 mls @ 167 mls/hr IV Q24H JOHANNY Magnesium Hydroxide (Milk Of Magnesia) 30 ml PO DAILY PRN PRN PRN Reason: Constipation Morphine Sulfate () 1 - 2 mg IV Q4H PRN PRN PRN Reason: PAIN Nutritional Formula (Lactose Free) (Ensure Clear) 120 ml PO 4X/DAY JOHANNY Ondansetron HCl (Zofran) 4 mg IV Q8H PRN PRN PRN Reason: NAUSEA Promethazine HCl (Phenergan) 12.5 mg IV Q6H PRN PRN PRN Reason: NAUSEA/VOMITING Sodium Chloride () 5 - 30 ml IV UD PRN PRN Reason: SALINE FLUSH SOC: Non-smoker. No EtOH use. Lives with and family in [place], [place]. ROS: Constitutional: No recent changes in weight. Neuro: Denies recent changes in vision, hearing and balance. Denies symptoms of neuropathy. +PARRA. HEENT: Denies sinus pain or pressure. Denies nasal discharge. Denies recent sore throat. Resp: See above. CVS: Denies exertional chest pain, PND, orthopnea. GI: Denies reflux, n/v, and melena or hematochezia. : Denies dysuria, frequency and gross hematuria. Endo: Denies hot flashes. Heat and cold intolerance. Musculoskeletal: Denies bone, back, joint and muscular pain. Heme: Denies episodes of unusual bleeding and unexplained bruising. Psych: Mood has been normal. PHYSICAL EXAM: Vitals: Vital Signs Temp 98.1 F 10/12/18 05:18 Pulse 83 10/12/18 05:18 Resp 18 10/12/18 05:18 BP 129/67 H 10/12/18 05:18 Pulse Ox 98 10/12/18 05:18 Intake AND Output GENERAL: Looks well and is in no acute distress. EYES: Sclerae are anicteric bilaterally. ENT: Oral mucosa is unremarkable. No sign of thrush or mucositis. No evidence of gingival or mucosal bleeding. NECK: Supple. LYMPHATIC: No palpable peripheral adenopathy. RESPIRATORY: Inspiratory breath sounds are of normal intensity in all delgado except left base. There is decreased air entry and faint crackles there. No wheeze or coarse rhonchi. CARDIOVASCULAR: Rhythm is regular. Normal intensity S1/S2. ABDOMEN: The abdomen is nondistended. Bowel sounds are present. Mild tenderness upper abdomen. SKIN: No jaundice or rash. NEUROLOGIC: AAO x3; No focal motor weakness. ASSESSMENT/PLAN: 1) Neutropenic fever. Assessment: -Patient developed fever while on Levaquin with no other symptoms--cough is infrequent, chronic and unchanged. -Subjectively feeling better on broader spectrum antibiotics. Plan: -Continue meropenem and vancomycin for now. 2) LLL infiltrate. Assessment: -CT images reviewed. Rather dense and large infiltrate LLL. -May be evolving fungal pneumonia, but I would expect her symptoms to be much more pronounced. -She appears to be responding to broader spec antibiotics as noted above. Plan: -Follow up CT chest with IV contrast in several days if continues to remain afebrile and blood cultures do not indicate more urgent need for CT. 3) Pancytopenia. Assessment: -Secondary to AML. -No bleeding issues. -Does not need irradiated blood products. Plan: -Transfuse 1 unit platelets for plt count <10K. -No growth factors. -Transfuse RBCs for Hgb <7-7.5 g/dL pending symptoms. 4) AML. Assessment: -Blast count remains significantly high following 2 cycles of Vidaza. Plan: -Further therapy will depend on outcome of problems above. 10/12/18 0922 <Electronically signed by Stephane Knapp DO> Date Stephane Knapp DO Cosigner Signature (if applicable): Date CC: Shannan Leggett; Stephane Knapp DO Signed BASIC METABOLIC Collected: 10/12/2018 Status: F Source: [place] PROFILE (BMP) 5:56 AM [facility] REPOSITORY TYPE CODE TESTS RESULT OUT OF RANGE REFERENCE UNITS LAB L501.0100 74-106 mg/dL Normal GLU 99 Result Comment: Please note revised GLUCOSE reference range effective 2017. LAB L501.1000 7-18 mg/dL Normal BUN 9 LAB L501.1100 0.55-1.02 mg/dL Normal CREAT,SERUM 0.69 Result Comment: The validity of the calculated GFR AND GFRAA in patients over 70 years has not been determined. Clinical correlation is essential. LAB L501.1110 >60 mL/min Normal EST GFR 88 Result Comment: Non- GFR Calc LAB L501.1115 >60 mL/min Normal EST GFR - AA 107 Result Comment: GFR Calc LAB L501.1255 ml/min Normal Estimated CRCL 41.97 LAB L501.1300 10-20 RATIO Normal BUN/CRE 13.1 LAB L501.2200 8.5-10 mg/dL Normal .1 CA 9.6 LAB L501.5300 136-14 mmol/L Normal 5 NA 141 LAB L501.5600 3.5-5. mmol/L Normal 1 K 3.7 LAB L501.5900 98-107 mmol/L Normal CL 107 LAB L501.6100 21.0-3 mmol/L Normal 2.0 CO2 26.0 LAB L501.6200 5-15 Normal GAP 8 Performed By: #### L500.2500 #### [facility] [address] [place], [address] CBC W/DIFF, AUTOMATED Collected: 10/12/2018 Status: C Source: [place] 5:56 AM [facility] REPOSITORY TYPE CODE TESTS RESULT OUT OF RANGE REFERENCE UNITS LAB L100.1000 4.4-11.0 K/mm3 Normal WBC 9.7 LAB L100.1200 4.2-5.4 M/mm3 Low RBC 2.66 LAB L100.1300 12.0-15.0 g/dl Low HGB 7.9 LAB L100.1400 37-47 % Low HCT 24.5 LAB L100.1500 81-99 fL Normal MCV 92.1 LAB L100.1600 27.0-32.0 pg Normal MCH 29.7 LAB L100.1700 32-36 g/gl Normal MCHC 32.2 LAB L100.1810 11.6-14.6 % High RDW CV 18.9 LAB L100.1820 35.1-43.9 fl High RDW SD 58.3 LAB L100.1900 150-450 K/mm3 Low alert PLT 6 Result Comment: CRITICAL VALUE VERIFIED. CALLED TO KEENACAROLINE TAPIAON 10/12/18 0636 Angeles Ann. RESULTS READ BACK BY SAME . LAB L100.2100 47-70 % Low NEUT% 7.2 LAB L100.2200 19-41 % High LY% 76.6 LAB L100.2300 0-10 % High MONO% 15.8 LAB L100.2400 0-5 % Normal EO% 0.2 LAB L100.2500 0-1 % Normal BASO% 0.2 LAB L100.2550 0.0-0.9 % Normal IM GRAN % 0.000 Result Comment: IG% - Immature Granulocytes (promyelocytes, myelocytes and metamyelocytes) > 1% indicates that a LEFT SHIFT is Present. LAB L100.2620 2.0-7.7 X10 3/uL Low Absolute Neut 0.7 LAB L100.2720 0.83-4.51 X10 3/ul Absolute Lymph High 7.40 LAB L100.4500 SMEAR COMMENT Normal SCAN LAB L100.5500 ADEQ PLT EST Normal MKD DEC LAB L100.7300 ANISO Normal 1+ LAB L100.7500 POLYCHROMASIA Normal 1+ LAB L100.7600 HYPOCHROMASIA Normal 2+ LAB L100.7700 MICROCYTES Normal 1+ LAB L100.9900 PATH REV Normal Reviewed Result Comment: Immature cells consistent with blasts are noted. As per patient's EMR, the patient has clinical history of AML. Normocytic anemia. Thrombocytopenia. Clinical correlation necessary. Ronan Anglin M.D. 10/13/18 AMENDED REPORT 10/13/18 1156 PATH REV previously reported as: March Performed By: #### L100.0100, L100.4425 #### [facility] [address], [address] NR PANEL Collected: 10/12/2018 Status: F Source: [place] 5:56 AM [facility] REPOSITORY TYPE CODE TESTS RESULT OUT OF RANGE REFERENCE UNITS LAB L100.4450 0-5 % Normal NRBC, FLAGGED 0.7 LAB L100.4455 0-5 10 3/uL Normal NRBC # 0.07 Performed By: #### L100.0100, L100.4425 #### [facility] [address] [place], [address] EMERGENCY DEPARTMENT Observed: 10/12/2018 Status: F Source: [place] SUMMARY 1:43 AM [facility] REPOSITORY [facility] Medical Records Department [address] [place] [address] Emergency Department Summary 10/11/18 1838 MR#: [id number] Acct: [id number] Name: TARI BLACK Rep #: [id number] : 1945 73 From: Aileen Diane MD PCP: Stephane Knapp DO Status: ADM IN - ER Visit Summary Date of Service: 10/11/18 Chief Complaint: Fever in a neutropenic patient History of Present Illness: The patient is a 73 F who presents for 1 day of fever. Patient is currently receiving chemotherapy for acute leukemia and is neutropenic. Patient developed a fever this morning and has felt unwell since. She feels generally fatigued and weak, with a headache and abdominal pain. She vomited yesterday but no vomiting or nausea today. She has been having difficulty urinating today, which is a chronic issue for her sometimes requiring self-catheterization. She last voided spontaneously 2 hours ago. Patient denies cough, congestion, chest pain, sore throat, shortness of breath, rash, dysuria. She denies any other medical problems. Physical Examination: Vital signs: Temperature of 100, hemodynamically stable, no hypoxia on room air General: well nourished, well developed, in no distress Skin: warm, dry, no rash, no pallor HEENT: normocephalic and atraumatic; PERRL, EOMI, moist mucous membranes, no oropharyngeal lesions appreciated, neck is supple and nontender, no lymphadenopathy Cardiovascular: Tachycardic rate and rhythm without murmurs, no peripheral edema, 2+ pulses all distal extremities Respiratory: No increased work of breathing, lungs are clear to auscultation bilaterally, no rales, rhonchi or wheezing Abdominal: Abdomen is soft, mildly distended, tender in the epigastrium with normoactive bowel sounds, no guarding or rebound, diffuse contusions in various states of healing from subcutaneous injections MSK: Moves all extremities, no deformities, normal strength Neuro: Awake and alert, oriented 4. No facial droop, sensation and motor function intact and symmetric Test Results: Abnormal Lab Results WBC Not Reportable Corrected WBC 10.6 RBC 2.51 L Hgb 7.6 L Hct 23.3 L MCV 92.8 MCH 30.3 WBC Corrected WBC RBC Hgb Hct MCV MCH MCHC RDW RDW Differential Plt Count Clinical Impression(s) from Imaging Studies Abdomen/Pelvis CT 10/11/18 18:38 IMPRESSION: Large consolidation of the left lower lobe. Smaller infiltrate of the medial right lower lobe. Negative for pleural effusion. No acute abdominal findings. Elongated right liver lobe typical of a Hai's lobe. Mild splenomegaly. Normal gallbladder and pancreas. Normal size of the kidneys bilaterally without hydronephrosis or ureteral stones. One nonobstructing cortical calcification of the left kidney. Renal cysts. Negative for evidence of bowel obstruction, perforation or inflammatory bowel changes. Diverticulosis without evidence of acute diverticulitis. Negative for pelvic mass or free fluid of the pelvis. Electronically Signed: Beena Skaggs MD at 20:48 EST , Service support , Chest X-Ray 10/11/18 19:45 IMPRESSION: Focal density in the posterior left base primarily on the lateral view. This is consistent with atelectasis infiltrate or mass. CT of the chest with contrast is recommended. Electronically Signed: Ramos Mccoy MD at 21:03 EST , Service support , Medications Given Discontinued Medications Acetaminophen (Tylenol) 650 mg PO X1 ONE Stop: 10/11/18 21:48 Last Admin: 10/11/18 22:03 Dose: 650 mg Sodium Chloride () 500 mls @ 999 mls/hr IV .Q31M JOHANNY Stop: 10/11/18 19:15 Last Admin: 10/11/18 19:26 Dose: 999 mls/hr Meropenem 1 gm/ Sodium (Chloride) 120 mls @ 200 mls/hr IV X1 ONE Stop: 10/11/18 19:11 Last Admin: 10/11/18 19:26 Dose: 200 mls/hr Vancomycin HCl 1,500 mg/ (Sodium Chloride) 530 mls @ 250 mls/hr IV X1 ONE Stop: 10/11/18 21:07 Last Admin: 10/11/18 20:29 Dose: 250 mls/hr Emergency Department Course and Treatment: Neutropenic fever workup was performed. Patient was started empirically on vancomycin and meropenem. Labs showed leukopenia with blast predominance, platelets of 7 and hemoglobin of 7.6. Lactate was within normal limits. EKG showed a sinus tachycardia without ischemic changes. Chest x-ray was concerning for a left basilar infiltrate. CT the abdomen and pelvis was performed because of patient's complaint of abdominal pain. It also showed the left lower lobe infiltrate. Patient was given Tylenol for a headache. Her headache is mild and does not seem meningitic. Patient was discussed with Dr. Knapp regarding the low platelet count, and he states that patient receives platelet transfusions regularly because of chronic thrombocytopenia. She does not need an emergent platelet transfusion in the emergency department, but but can receive 1 on the floor either tonight or after he evaluates her tomorrow. Patient was discussed with Dr. Leggett and admitted for neutropenic fever with concern for a left lower lobe pneumonia. Treatment Plan: [] Disposition: [] Impression: Neutropenic fever, left lower lobe pneumonia, thrombocytopenia, neutropenia, anemia This note was generated with [employer] dictation software. It may contain incorrect words, spelling, and punctuation that were not noted in review of the chart prior to signing ED Disposition - Plan for ED Patient: Disposition: Acute Care Hospital [facility] Chief Complaint: Fever What to do if you have Problems For any increased pain, shortness of breath, bleeding, nausea or vomiting, chest pain, or any unexpected problems, contact your Primary Care Provider. Call [employer] [facility] ([phone]) or report to the closest Emergency Room. Call 911 if necessary. 10/12/18 0143 <Electronically signed by Aileen Diane MD> Date Aileen Marreroigner Signature (If Indicated): Date CC: Stephane Knapp DO MAGNESIUM Collected: 10/11/2018 Status: F Source: [place] 11:00 PM [facility] REPOSITORY TYPE CODE TESTS RESULT OUT OF RANGE REFERENCE UNITS LAB L501.5200 1.6-2.6 mg/dL Normal MG 1.9 Performed By: #### L501.5200 #### [facility] [address] [place], [place], [address] PHOSPHORUS Collected: 10/11/2018 Status: F Source: [place] 11:00 [facility] REPOSITORY TYPE CODE TESTS RESULT OUT OF RANGE REFERENCE UNITS LAB L501.2300 2.5-4.9 mg/dL Normal PHOS 3.0 Performed By: #### L501.2300 #### [facility] [address] [place], [address] TYPE AND SCREEN Collected: 10/11/2018 Status: F Source: [place] 11:00 [facility] REPOSITORY Order Comment: CMV NEG? N Number of units to transfuse: 1 Is there a >20% drop in pt's BP? N Is the pt's CVP (central venous pressure) <3 cm/H2O? N Is the EBL >/= 1000ml in adults or >/= 12ml/kg in children? N Is there an orthostatic change in pt's BP(SBP drop >10mmHg)? N Is pt's HR > 100 bpm? Y Reason for Ordering Blood: Acute Are the blood/blood products to be transfused? Y Is the patient having/had surgery? N CMV NEG?* Y Give When? When Ready Irradiated? N Leukodepleted? Y Reason for Type AND Screen/Red Cells: ANEMIA TYPE CODE TESTS RESULT OUT OF RANGE REFERENCE UNITS LAB B10.0800 O Normal BLOOD TYPE GEL NEGATIVE LAB B100.4000 Normal Antibody NEGATIVE Screen Performed By: #### B101.7450 #### [facility] [address] [place], [address] Collected: 10/11/2018 Status: F Source: [place] 11:00 PM [facility] REPOSITORY TYPE CODE TESTS RESULT OUT OF REFERENCE UNITS RANGE LAB U100.0000 [id number] TRANSFUSED PRODUCT: T AND S with Crossmatch, Red Cells COUNT: 1 Performed By: #### U100.0000 #### [facility] - refer to report for specific site PPHR Collected: 10/11/2018 Status: F Source: [place] 11:00 PM [facility] REPOSITORY TYPE CODE TESTS RESULT OUT OF REFERENCE UNITS RANGE LAB U100.0700 [id number] TRANSFUSED PRODUCT: Platelets Apheresis PPHR LR SD COUNT: 1 Performed By: #### U100.0700 #### [facility] - refer to report for specific site PPHR Collected: 10/11/2018 Status: F Source: [place] 11:00 PM [facility] REPOSITORY TYPE CODE TESTS RESULT OUT OF REFERENCE UNITS RANGE LAB U100.0700 [id number] TRANSFUSED PRODUCT: Platelets Apheresis PPHR LR SD COUNT: 1 Performed By: #### U100.0700 #### [facility] - refer to report for specific site PPHR Collected: 10/11/2018 Status: F Source: [place] 10:49 PM [facility] REPOSITORY TYPE CODE TESTS RESULT OUT OF REFERENCE UNITS RANGE LAB U100.0700 [id number] TRANSFUSED PRODUCT: Platelets Apheresis PPHR LR SD COUNT: 1 Performed By: #### U100.0700 #### [facility] - refer to report for specific site HISTORY AND PHYSICAL Observed: 10/11/2018 Status: F Source: [place] EXAM 10:33 PM [facility] REPOSITORY [facility] Medical Records Department [address] [place] [address] History and Physical 10/11/182142 MR#: [id number] Acct: [id number] Name: TARI BLACK Rep #: [id number] : 1945 73 From: Shannan Leggett PCP: Stephane Knapp DO Status: ADM IN Location: [place] [id number] Problem List (1) Neutropenic fever Status: Acute (2) Sepsis Status: Acute Qualifiers: Sepsis type: sepsis due to unspecified organism Qualified Code(s): A41.9 - Sepsis, unspecified organism (3) Pancytopenia Status: Acute (4) AML (acute myeloblastic leukemia) Status: Chronic Qualifiers: Leukemia Active/Remission status: without remission Qualified Code(s): C92.00 - Acute myeloblastic leukemia, not having achieved remission (5) HTN (hypertension) Status: Chronic Qualifiers: Hypertension type: essential hypertension Qualified Code(s): I10 - Essential (primary) hypertension (6) Obesity Status: Chronic Qualifiers: Obesity type: due to excess calories Obesity classification: adult class 2 (BMI 35 - 39.9) Serious obesity comorbidity presence: with serious comorbidity Body mass index: BMI 35.0-35.9 Qualified Code(s): E66.01 - Morbid (severe) obesity due to excess calories; Z68.35 - Body mass index (BMI) 35.0-35.9, adult History of Present Illness Date of Admission: 10/11/18 Chief Complaint: Malaise, N/V, upper abd discomfort, fever The patient is a 73 y/o F w/ PMHx: HTN off regimen since initiation of chemotherapy secondary to hypotension, Obesity, Urinary Retention with intermittent self-catheterization need, recent Dx AML on chemotherapy (Vidaza) currently completed her 2nd round the week prior to current presentation with planned continued cycles with expected response in 4-6 months to assist with blast reduction, Chronic Pancytopenia requiring plts transfusions often 2-3x/week who presents to the [facility] ED on 10/11/18 with history of generalize malaise, fatigue, poor oral intake, generalized abdominal discomfort primarily BL UQ, L>R in addition to headache without light or sound sensitivity since last chemotherapy (Saturday past) in addition to onset fever on day of ED presentation. She also noted nausea and emesis over the last 24 hours. She denied any recent cough or dyspnea even with exertion. Patient recommended to present to the [facility] ED for evaluation per Dr. Knapp. In the ED work-up included included T 100, heart rate 108, BP 141/70, respiratory rate 16, 93% room air, CBC with non-reportable WBC, hemoglobin 7.6, platelets 7, blast 69%, coags PT 15.4, INR 1.2, PTT 48, CMP with sodium 134, glucose 119, lactic acid 0.8, total bilirubin 1.6, AST/ALT 32/22, alk phos 126, urinalysis with no obvious infection, chest x-ray with focal density in the posterior left base primarily on the lateral view consistent with atelectasis infiltrate or mass, CT A/P with large consolidation of the left lower lobe, smaller infiltrate of the right middle lobe, no pleural effusion, no acute abdominal findings, elongated right liver lobe typical of Hai's lobe, mild spinal megaly, normal gallbladder and pancreas, normal size of the kidneys bilaterally without hydronephrosis or ureteral stones, one nonobstructing cortical calcification of the left kidney, renal cyst, diverticulosis without evidence of diverticulitis, no evidence of pelvic mass or free fluid, urine culture and blood culture x2 obtained per ED. In the ED patient administered vancomycin, meropenem, normal saline, Tylenol p.o. x1. 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 Paternal History Items: - - Father with history of CO at age 43. Sibling History Items: - - Sister with a history of lung cancer. Review of Systems Constitutional: Reports: Anorexia, Fever, Malaise, Weakness, Fatigue. Denies: Chills, Weight Change HEENT: Reports: Head Aches. Denies: Sinus Congestion, Sinus Drainage Cardiovascular: Denies: Chest Pain, Palpitations Respiratory: Denies: Cough, Shortness of breath at rest, Sputum production Gastrointestinal: Reports: Abdominal Pain, Nausea, Vomiting Genitourinary: Reports: Retention. Denies: Dysuria Musculoskeletal: Reports: Back Pain, Joint Pain. Denies: Joint Tenderness Skin: Denies: Rash, Wounds Neurological: Denies: Numbness, Tingling, Focal weakness Psychiatric: Denies: Anxiety, Depression, Homicidal Ideations, Suicidal Ideations Hematologic/ Lymphatic: Reports: Anemia, Easy Bruising, Easy Bleeding VTE Information - Inpt Only VTE Present on Admission: No VTE Mechan Device Prophylaxis: SCD's VTE Pharm Prophylaxis ordered?: No Reason prophylaxis not ordered:: Medical Contraindication Patient Problems: Active and Suspected Problems Neutropenic fever (Acute) Sepsis (Acute) Pancytopenia (Acute) Subjective: Seated upright in the ED bed, fatigued appearance. Objective: Physical Examination: General: awake, alert, oriented x 3 and cooperative, seated upright in the ED bed in no apparent distress. Skin: normal color, turgor, no icterus, cyanosis. HEENT: AT/NC, EOMI, PERRLA, dry MM, no carotid bruits or JVD noted. Lungs: Diminished BS BL bases, L>R, moderate effort, no rales, ronchi or wheezing. Heart: Tachycardic with regular rhythm; no gallop, rub audible. Abdomen: soft, obese, NTTP, ND, normal BS, no HSM; however difficult to assess w/ her habitus. Extremities: no cyanosis, clubbing, mild BL ankle nonpitting edema. Neurological: patient awake, alert, oriented x 3; cognitive function intact; pupils equally reactive to light and accomodation; cranial nerves II-XII grossly normal, moving all 4 extremities, no focal deficits, strength moderately globally decreased. Psychiatric: affect appears mildly flat, fatigued, no acute evidence of depressive or anxiety feelings. - Physical Exam Vital Signs Temp Pulse Resp BP Pulse Ox 99.5 F H 108 H 18 141/70 H 93 10/11/18 20:36 10/11/18 18:10 10/11/18 20:36 10/11/18 18:10 10/11/18 18:10 Oxygen Delivery Method Room Air Weight: 208 lb Body Mass Index (BMI) 35.6 Laboratory Tests Past 24 Hrs WBC Not Reportable Corrected WBC 10.6 RBC 2.51 L Hgb 7.6 L Hct 23.3 L MCV 92.8 MCH 30.3 WBC Corrected WBC RBC Hgb Hct MCV MCH MCHC RDW RDW Differential Plt Count Assessment/Plan All Active Problems Neutropenic fever (Acute) Sepsis (Acute) Pancytopenia (Acute) The patient is a 73 y/o F w/ PMHx: HTN off regimen since initiation of chemotherapy secondary to hypotension, Obesity, Urinary Retention with intermittent self-catheterization need, recent Dx AML on chemotherapy (Vidaza) currently completed her 2nd round the week prior to current presentation with planned continued cycles with expected response in 4-6 months to assist with blast reduction, Chronic Pancytopenia requiring plts transfusions often 2-3x/week who presents to the [facility] ED on 10/11/18 with history of generalize malaise, fatigue, poor oral intake, generalized abdominal discomfort primarily BL UQ, L>R in addition to headache without light or sound sensitivity since last chemotherapy (Saturday past) in addition to onset fever on day of ED presentation. (1) Acute Sepsis secondary to Neutropenic fever secondary to HCAP LLL, RML: Febrile, tachycardic, pancytopenic as noted w/ source. LA normal. ED work-up included included T 100, heart rate 108, BP 141/70, respiratory rate 16, 93% room air, CBC with non-reportable WBC, hemoglobin 7.6, platelets 7, blast 69%, coags PT 15.4, INR 1.2, PTT 48, CMP with sodium 134, glucose 119, lactic acid 0.8, total bilirubin 1.6, AST/ALT 32/22, alk phos 126, urinalysis with no obvious infection, chest x-ray with focal density in the posterior left base primarily on the lateral view consistent with atelectasis infiltrate or mass, CT A/P with large consolidation of the left lower lobe, smaller infiltrate of the right middle lobe, no pleural effusion, no acute abdominal findings, elongated right liver lobe typical of Hai's lobe, mild spinal megaly, normal gallbladder and pancreas, normal size of the kidneys bilaterally without hydronephrosis or ureteral stones, one nonobstructing cortical calcification of the left kidney, renal cyst, diverticulosis without evidence of diverticulitis, no evidence of pelvic mass or free fluid, urine culture and blood culture x2 obtained per ED. Oncology aware, consult pending. Will admit to [facility], maintain on Neutropenic precautions, obtain mag and phos level given recent chemotherapy treatments, maintain I AND Os, treat with IV meropenem and vancomycin pending cultures, obtain sputum cx although suspect will not be able to give, obtain urine antigens, maintain on ATC duoneb and PRN albuterol, encourage IS, HOB. PRN tylenol, anti-emetics, pain regimen. (2) Acute on chronic pancytopenia: Admission CBC with non- reportable WBC, hemoglobin 7.6, platelets 7, blast 69%, baseline Plts 5-10, requires transfusion 2-3x per week, baseline Hgb 9, discussion with Dr. Knapp with plan to administer 1 u PRBC and 1 pack Plts, noting no need to irradiate products but will need IV Benadryl prior second to pruritus. (3) AML: Patient following w/ Dr. Knapp/Dr. Jimenez, patient on chemotherapy (Vidaza) currently completed her 2nd round the week prior to current presentation with planned continued cycles with expected response in 4-6 months to assist with blast reduction. Mag and Phos pending as noted. Treatment neutropenia as noted #1 and pancytopenia as noted #2. Oncology consulted, aware, pending. Given patient poor oral intake with recent chemotherapy as discussed with patient and family will request nutrition consultation. (4) Urinary Retention, Intermittent: Noted history of urinary retention with intermittent self-catheterization needs, will perform bladder scans and continue home PRN regimen catheterization. UA not marked appearing. (5) Hypertension: No longer on regimen as noted improvement when diagnosed w/ AML, PRN hydralazine. (6) Obesity: Weight loss and lifestyle changes encouraged. (7) DVT Prophylaxis: SCDs, defer chemoprophylaxis given acute on chronic pancytopenia. (8) CODE status: Discussed CODE status at length including difference between FULL code, DNR-CCA and DNR-CC status. Following discussions about the differences in these status, requested DNR-CCA, no intubation status. Daughter x 2 and Son-in-law present she notes are her health care decision makers in the event she is unable. Advanced Care Planning Face to Face Time: 17 minutes. Code Visit Inpatient E AND M: 55109 Init Hosp L3 Procedures: 66082 Advncd Care Plan 30 Min 10/11/18 3672 <Electronically signed by Shannan Leggett > Date Shannan Leggett Cosigner Signature: Date (if applicable) CC: Shannan Pooja Leggett; Stephane Knapp Signed URINALYSIS, COMPLETE Collected: 10/11/2018 Status: F Source: [place] 7:30 PM [facility] REPOSITORY Order Comment: How was Urine Obtained? NEWSPAPER PHOTO EDITOR TO SPECIFY TYPE CODE TESTS RESULT OUT OF RANGE REFERENCE UNITS LAB L400.3000 Yellow COLOR Normal Yellow LAB L400.3050 Clear Normal CLARITY Sl. Cloudy LAB L400.3200 Normal mg/dl Normal GLUCOSE, UR Normal LAB L400.3300 Negative mg/dL Normal BILIRUBIN URINE Negative LAB L400.3400 Negative mg/dl Normal KETONE UR Negative LAB L400.3465 1.002-1.030 Normal SP.GR. DIPSTX 1.010 LAB L400.3550 5.0 - 8.0 pH UR Normal 8.0 LAB L400.3600 Negative mg/dl High PROT 30 DIPSTX LAB L400.3700 Normal mg/dl High 1 UROBILI LAB L400.3750 Negative Normal NITRITE UR Negative LAB L400.3780 Negative /ul Normal OCCULT BLOOD-UR Negative LAB L400.3800 Negative /ul LEUK Normal ESTERASE Negative LAB L400.4050 0-5 /hpf WBC 0 Normal SEEN LAB L400.4100 0-5 /hpf 0 Normal RBC-UA SEEN LAB L400.4150 5-10 /hpf SQUAM Normal EPI 0-5 SEEN LAB L400.4300 None Seen /hpf 0 Normal BACTERIA SEEN LAB L400.4350 <or=2+ /hpf 0 Normal MUCUS, URINE SEEN LAB L400.4900 1+ Normal AMORPHOUS PHOS Performed By: #### L400.0001 #### [facility] [address] [place], [place], [address] STREP Observed: 10/11/2018 Status: F Source: [place] PNEUMONIAE ANTIG(UR,CSF) 7:30 PM [facility] REPOSITORY S pneumo Ag URINE INTERPRETATION Negative Urine Presumptive negative for pneumococcal pneumonia, suggesting no current or recent pneumococcal infection. Infection due to S pneumoniae cannot be ruled out since the antigen present in the sample may be below the detection limit of the test. Strep pneumo Test Negative URINE (See interpretation below) Performed By: #### M300.4600 #### [facility] [place], [place], [address] Observed: 10/11/2018 Status: F Source: [place] LEGIONELLA ANTIGEN 7:30 PM [facility] URINE REPOSITORY Legionella, UR Legionella Antigen result interpretation: Negative Presumptive negative for Legionella pneumophila serogroup 1 antigen in urine, suggesting no recent or current infection. Legionella Ag, Urine Negative (See interpretation below) Performed By: #### M300.4500 #### [facility] [place], [place], [id number] Observed: 10/11/2018 Status: F Source: [place] CULTURE, URINE 7:30 PM [facility] REPOSITORY Urine Culture ORGANISM 1: Mixed Gram Positive Organisms Ruth Count 11,000-25,000 MIX CULTURE Mixed contaminants. Submit a new specimen if indicated. Performed By: #### M100.0650 #### [facility] [address] [place] [address]. [place], [place], [address] Observed: 10/11/2018 Status: F Source: [place] CULTURE, URINE 7:30 PM [facility] REPOSITORY Urine Culture ORGANISM 1: Staphylococcus epidermidis Ruth Count 25,000-50,000 MIX CULTURE Mixed contaminants. Submit a new specimen if indicated. Staphylococcus epidermidis: REACTION Benzylpenicillin NF >=0.5 R Cefoxitin *NF + Inducable Clindamycin Resistan - Gentamicin $ <=0.5 S Levofloxacin $ >=8 R Linezolid $$$$ 1 S Nitrofurantoin $ <=16 S Oxacillin NF >=4 R Rifampin $$ <=0.5 S Tetracycline NF >=16 R Vancomycin $ 1 S (NF) indicates non-formulary drug at [facility]. Approval by Infectious Disease Specialist required before non-formulary drugs may be ordered and/or dispensed. * CLSI guidelines does not recommend testing of cephalosporins. This interpretation is deduced from Beta-lactam/penicillin results. Performed By: #### M100.0650 #### [facility] [place], [address] Observed: 10/11/2018 Status: F Source: [place] CULTURE, BLOOD (WB) 7:25 PM [facility] REPOSITORY BC No growth in 5 days. Performed By: #### M200.1000 #### [facility] [address] [place], [address] PROTHROMBIN TIME W/INR Collected: 10/11/2018 Status: F Source: [place] 6:50 PM [facility] REPOSITORY TYPE CODE TESTS RESULT OUT OF RANGE REFERENCE UNITS LAB L300.4150 11.7-14.9 SECONDS High PROTIME 15.4 LAB L300.4200 Normal INR 1.2 Performed By: #### L300.3900, L300.4310 #### [facility] [address] [place], [address] PARTIAL THROMBOPLAST Collected: 10/11/2018 Status: F Source: [place] TIME 6:50 PM [facility] REPOSITORY TYPE CODE TESTS RESULT OUT OF REFERENCE UNITS RANGE LAB L300.4310 24.1-36.2 Seconds High PTT 48.0 Performed By: #### L300.3900, L300.4310 #### [facility] [address] [place], [address] CBC W/DIFF, AUTOMATED Collected: 10/11/2018 Status: C Source: [place] 6:50 PM [facility] REPOSITORY TYPE CODE TESTS RESULT OUT OF RANGE REFERENCE UNITS LAB L100.1100 4.4-11.0 K/mm3 Normal CORRECTED WBC 10.6 LAB L100.1200 4.2-5.4 M/mm3 Low RBC 2.51 LAB L100.1300 12.0-15.0 g/dl Low HGB 7.6 LAB L100.1400 37-47 % Low HCT 23.3 LAB L100.1500 81-99 fL MCV Normal 92.8 LAB L100.1600 27.0-32.0 pg MCH Normal 30.3 LAB L100.1700 32-36 g/gl MCHC Normal 32.6 LAB L100.1810 11.6-14.6 % High RDW CV 19.3 LAB L100.1820 35.1-43.9 fl High RDW SD 61.3 LAB L100.1900 150-450 K/mm3 Low PLT alert 7 Result Comment: RESULTS CALLED TO ANITA 10/11/188 Laya Bartholomew. REPORT READ BACK BY SAME. LAB L100.2000 6.2-12.0 fl Test Normal MPV not performed LAB L100.2620 2.0-7.7 X10 Low 3/uL 0.1 Absolute Neut LAB L100.2720 0.83-4.51 X10 3/ul 3.18 Normal Absolute Lymph LAB L100.3200 47-70 % Low 1 SEGS LAB L100.3700 0-0 % High 69 alert BLAST Result Comment: CALLED TO JUANA MIKE 10/11/182010 BY MACY AMENDED REPORT 10/11/182010 BLAST previously reported as: 69 *H % LAB L100.3800 19-41 % LYMPH 30 Normal LAB L100.5500 ADEQ PLT EST Normal MKD DEC LAB L100.7300 ANISO 2+ Normal LAB L100.7500 POLYCHROMASIA Normal RARE LAB L100.7900 BASO STIP Normal RARE LAB L100.9900 PATH REV Normal Reviewed Result Comment: Immature cells consistent with blasts are noted. As per patient's EMR, the patient has clinical history of AML. Normocytic anemia. Thrombocytopenia. Clinical correlation necessary. Ronan Anglin M.D. 10/13/18 AMENDED REPORT 10/13/18 1152 PATH REV previously reported as: March kaleb LAB L100.3100 MANUAL DIFF Normal CELLS COUNTED 100 Performed By: #### L100.0100, L100.4425 #### [facility] [address] [place], [address] NRBC PANEL Collected: 10/11/2018 Status: F Source: [place] 6:50 PM [facility] REPOSITORY TYPE CODE TESTS RESULT OUT OF RANGE REFERENCE UNITS LAB L100.4450 0-5 % Normal NRBC, FLAGGED 1.1 LAB L100.4455 0-5 10 3/uL Normal NRBC # 0.11 Performed By: #### L100.0100, L100.4425 #### [facility] [address] [place], [address] COMPREHENSIVE METABOLIC Collected: 10/11/2018 Status: F Source: [place] FINN 6:50 PM [facility] REPOSITORY TYPE CODE TESTS RESULT OUT OF RANGE REFERENCE UNITS LAB L501.0100 74-106 mg/dL High GLU 119 Result Comment: Fasting Glucose result from 100 to 125 mg/dL suggests IMPAIRED HOMEOSTASIS per A.D.A. criteria. Please note revised GLUCOSE reference range effective 2017. LAB L501.1000 7-18 mg/dL Normal BUN 9 LAB L501.1100 0.55-1.02 mg/dL Normal CREAT,SERUM 0.73 Result Comment: The validity of the calculated GFR AND GFRAA in patients over 70 years has not been determined. Clinical correlation is essential. LAB L501.1110 >60 mL/min Normal EST GFR 83 Result Comment: Non- GFR Calc LAB L501.1115 >60 mL/min Normal EST GFR - AA 100 Result Comment: GFR Calc LAB L501.1255 ml/min Normal Estimated CRCL 41.97 LAB L501.1300 10-20 RATIO Normal BUN/CRE 12.3 LAB L501.1500 6.4-8. g/dL Normal 2 T PROT 6.8 LAB L501.1800 3.2-5. g/dL Low 0 ALB 2.8 LAB L501.1950 2.2-4. g/dL Normal 2 GLOB 4.0 LAB L501.2000 0.9-2. RATIO Low 4 A/G 0.7 LAB L501.2200 8.5-10 mg/dL Normal .1 CA 9.5 LAB L501.4100 15-37 U/L Normal AST 32 LAB L501.4305 45-117 U/L High ALK P 126 LAB L501.4405 13-56 U/L Normal ALT 22 LAB L501.4600 0.20-1 mg/dL High .00 T BILI 1.60 LAB L501.5300 136-14 mmol/L Low 5 NA 134 LAB L501.5600 3.5-5. mmol/L Normal 1 K 3.9 LAB L501.5900 98-107 mmol/L Normal CL 102 LAB L501.6100 21.0-3 mmol/L Normal 2.0 CO2 28.0 LAB L501.6200 5-15 Low GAP 4 Performed By: #### L500.4050 #### [facility] [address] [place], [address] LACTIC ACID Collected: 10/11/2018 Status: F Source: [place] 6:50 PM [facility] REPOSITORY Order Comment: Yes/No query for Sepsis Lactate Rule Y TYPE CODE TESTS RESULT OUT OF RANGE REFERENCE UNITS LAB L503.6005 0.4-2.0 mmol/L Normal LACTIC ACID 0.8 Performed By: #### L503.6005 #### [facility] [address] [place], [place], [address] Observed: 10/11/2018 Status: F Source: [place] CULTURE, BLOOD (WB) 6:50 PM [facility] REPOSITORY BC No growth in 5 days. Performed By: #### M200.1000 #### [facility] [address] [place], [place], [address] ABDOMEN/PELVIS WITHOUT Observed: 10/11/2018 Status: F Source: [place] CONT 6:39 PM [facility] REPOSITORY [facility] Imaging Services [address] [facility] [place] [address] Abdomen/Pelvis without Cont MR#: [id number] Acct: [id number] Name: TARI BLACK Rep #: [id number] : 1945 F 73 From: Beena Skaggs MD PCP: Stephane Knapp DO Status: REG ER Study: Abdomen/Pelvis without Cont Date of Exam: 10/11/18 Exam# [id number] Ordering Dr: Aileen Diane MD STUDY: CT ABDOMEN AND PELVIS WITHOUT CONTRAST REASON FOR EXAM: Female, 73 years old. Fever. History of leukemia. RADIATION DOSAGE (If Supplied By Facility): CTDIvol = ( 19.08 ) mGy, DLP = ( 934.49 ) mGycm TECHNIQUE: Transaxial images were obtained from the dome of the diaphragm to the symphysis pubis without oral contrast, and without intravenous contrast. Sagittal and coronal images were reconstructed. Individualized dose optimization techniques were used for this CT. COMPARISON: PA and lateral chest October 11, 2018 FINDINGS: Partially rounded groundglass and dense consolidation of the left lower lobe negative for pleural effusion. Small multifocal roundish infiltrate of the posterior right lower lobe. The visualized portions of the heart are within normal limits. Benign globular calcification and the superficial layer of the right liver dome. Elongated right liver lobe, probably Hai's lobe. Normal gallbladder and extrahepatic biliary system. Splenomegaly with a coronal length of 14 cm. Normal pancreas. Normal bilateral adrenal glands. Normal right kidney. Nonobstructing cortical calcification, 1 mm, in the lower pole of the left kidney subcentimeter exophytic cyst in the lower pole of the left kidney. Otherwise unremarkable left kidney without hydronephrosis or stones. Nondistended stomach. Nondistended small bowel. Nondistended colon. Minimal diverticulosis without evidence of acute diverticulitis. The appendix is visualized and appears normal. There is diffuse atherosclerotic calcification of the abdominal aorta, without a demonstrated aneurysm. Normal inferior vena cava. Normal retroperitoneum. Normal urinary bladder. Negative for pelvic mass or free fluid of the pelvis. Subcutaneous stranding of the abdominal wall on both sides consistent with injection sites. Patient has extreme thinning of the rectus muscles bilaterally with a general dysraphism and protrusion of the abdominal cavity without herniation. There are diffuse degenerative changes of the visualized lumbar spine with demineralized osseous structures. CT/Abdomen/Pelvis without Cont IMPRESSION: Large consolidation of the left lower lobe. Smaller infiltrate of the medial right lower lobe. Negative for pleural effusion. No acute abdominal findings. Elongated right liver lobe typical of a Hai's lobe. Mild splenomegaly. Normal gallbladder and pancreas. Normal size of the kidneys bilaterally without hydronephrosis or ureteral stones. One nonobstructing cortical calcification of the left kidney. Renal cysts. Negative for evidence of bowel obstruction, perforation or inflammatory bowel changes. Diverticulosis without evidence of acute diverticulitis. Negative for pelvic mass or free fluid of the pelvis. Electronically Signed: Beena Skaggs MD at 20:48 EST , Service support , CC: Aileen Diane MD; Stephane Knapp DO Flight Superintendent: Signed CHEST PA AND LATERAL Observed: 10/11/2018 Status: F Source: [place] 6:39 PM [facility] REPOSITORY [facility] Imaging Services [address] [address] Chest PA and Lateral MR#: [id number] Acct: [id number] Name: TARI BLACK Rep #: [id number] : 1945 F 73 From: Ramos Mccoy MD PCP: Stephane Knapp DO Status: REG ER Study: Chest PA and Lateral Date of Exam: 10/11/18 Exam# [id number] Ordering Dr: Aileen Diane MD STUDY: X-RAY CHEST REASON FOR EXAM: Female, 73 years old. Fever TECHNIQUE: Frontal and lateral views of the chest. COMPARISON: None. FINDINGS: Hyperexpansion of the lungs. Lateral view shows prominent opacification in the posterior left lung base also seen on CT of the abdomen and pelvis and consistent with focal infiltrate or mass. CT of the chest with contrast is recommended. No gross effusions. Normal size heart. Normal mediastinum and william. Normal visualized pulmonary arteries. Normal visualized aortic arch and descending thoracic aorta. There are diffuse degenerative changes of the visualized thoracic spine. There is exaggerated kyphosis. Normal visualized ribs, clavicles, and shoulders. There is no demonstrated abnormality of the visualized soft tissue structures of the upper abdomen. RAD/Chest PA and Lateral IMPRESSION: Focal density in the posterior left base primarily on the lateral view. This is consistent with atelectasis infiltrate or mass. CT of the chest with contrast is recommended. Electronically Signed: Ramos Mccoy MD at 21:03 EST , Service support , CC: Aileen Diane MD; Stephane Knapp DO Flight Superintendent: Signed [place] ABS GR + CBC Collected: 10/06/2018 Status: F Source: [place] 9:23 AM [facility] REPOSITORY TYPE CODE TESTS RESULT OUT OF REFERENCE UNITS RANGE LAB WWBC 3.70-11.00 k/uL Test [place] WBC sent to [facility]. Result Comment: Account Credited LAB WRBC 3.90-5.20 m/uL Test [place] RBC sent to [facility]. Result Comment: Account Credited LAB WHGB 11.5-15.5 g/dL [place] Test Hemoglobin sent to [facility]. Result Comment: Account Credited LAB WHCT 36.0-46.0 % [place] Test Hematocrit sent to [facility]. Result Comment: Account Credited LAB WMCV 80.0-100.0 fL Test [place] MCV sent to [facility]. Result Comment: Account Credited LAB WMCH 26.0-34.0 pg Test [place] MCH sent to [facility]. Result Comment: Account Credited LAB WMCHC 30.5-36.0 g/dL Test [place] MCHC sent to [facility]. Result Comment: Account Credited LAB WRDW 11.5-15.0 % Test [place] RDW sent to [facility]. Result Comment: Account Credited LAB WPLT 150-400 k/uL Test [place] sent to [place] Platelet [facility]. Result Comment: Account Credited LAB WMPV 9.0-12.7 fL Test [place] MPV sent to [facility]. Result Comment: Account Credited LAB ABGRAN 1.45-7.50 k/uL Test Absol sent to [facility]. Result Comment: Account Credited LAB ABSNUC <0.01 k/uL Test Absolute nRBC sent to [facility]. Result Comment: Account Credited CBC W/DIFF, AUTOMATED Collected: 10/06/2018 Status: C Source: [place] 9:21 AM [facility] REPOSITORY Order Comment: CRITICAL VALUE VERIFIED. CALLED TO MARY CAMPOVERDE RN AT [facility] 10/06/18 1124 Felisa Flanagan. RESULTS READ BACK BY SAME . TYPE CODE TESTS RESULT OUT OF RANGE REFERENCE UNITS LAB L100.1200 4.2-5.4 M/mm3 Low 3.07 RBC LAB L100.1300 12.0-15.0 g/dl Low 9.3 HGB LAB L100.1400 37-47 % Low 29.0 HCT LAB L100.1500 81-99 fL 94.5 Normal MCV LAB L100.1600 27.0-32.0 pg 30.3 Normal MCH LAB L100.1700 32-36 g/gl 32.1 Normal MCHC LAB L100.1810 11.6-14.6 % High 19.1 RDW CV LAB L100.1820 35.1-43.9 fl High 61.3 RDW SD LAB L100.1900 150-450 K/mm3 Low 6 alert PLT LAB L100.2000 6.2-12.0 fl Test Normal MPV not performed LAB L100.2620 2.0-7.7 X10 3/uL Low 0.0 Absolute Neut Result Comment: AMENDED REPORT 10/06/18 1125 Absolute Neut previously reported as: 0.4 L X10^3/uL LAB L100.2720 0.83-4.51 X10 3/ul Normal Absolute Lymph 4.17 Result Comment: AMENDED REPORT 10/06/18 1126 Absolute Lymph previously reported as: 8.64 H X10^3/ul LAB L100.3100 MANUAL DIFF CELLS COUNTED Normal 100 LAB L100.3700 0-0 % High BLAST 45 alert LAB L100.3800 19-41 % High LYMPH 43 LAB L100.3900 0-10 % High MONOCYTE 11 LAB L100.4000 0-5 % EOS 1 Normal LAB L100.5500 ADEQ PLT EST Normal MKD DEC LAB L100.7600 HYPOCHROMASIA 1+ Normal LAB L100.1100 4.4-11.0 K/mm3 CORRECTED WBC Normal 9.7 LAB L100.9900 PATH REV Normal Reviewed Result Comment: Immature cells consistent with blasts are noted. Thrombocytopenia. Normocytic anemia. As per patient's EMR, the patient has known clinical history of AML. Clinical correlation necessary. Ronan Anglin M.D. 10/07/18 AMENDED REPORT 10/07/18 1015 PATH REV previously reported as: May Performed By: #### L100.0100, L100.4458 #### [facility] [address] [place], [address] NRBC PANEL Collected: 10/06/2018 Status: F Source: [place] 9:21 AM [facility] REPOSITORY Order Comment: CRITICAL VALUE VERIFIED. CALLED TO MARY CAMPOVERDE RN AT [facility] 10/06/18 1124 Felisa Flanagan. RESULTS READ BACK BY SAME . TYPE CODE TESTS RESULT OUT OF RANGE REFERENCE UNITS LAB L100.4450 0-5 % Normal NRBC, FLAGGED 0.9 LAB L100.4455 0-5 10 3/uL Normal NRBC # 0.09 Performed By: #### L100.0100, L100.4425 #### [facility] [address] [place], [address] ABO RH BLOOD TYPE, Collected: 10/06/2018 Status: F Source: [place] PATIENT 9:21 AM [facility] REPOSITORY Order Comment: PRETRANSFUSION PLT = 6 [facility] NEG? N Give When? 10/07/18 @1300 Irradiated? N TYPE CODE TESTS RESULT OUT OF RANGE REFERENCE UNITS LAB B10.0800 O Normal BLOOD NEGATIVE TYPE GEL Performed By: #### B10.0010 #### [facility] [address] [place], [address] PPHR Collected: 10/06/2018 Status: F Source: [place] 9:21 AM [facility] REPOSITORY TYPE CODE TESTS RESULT OUT OF REFERENCE UNITS RANGE LAB U100.0700 [id number] TRANSFUSED PRODUCT: Platelets Apheresis PPHR LR SD COUNT: 2 Performed By: #### U100.0700 #### Non[facility] - refer to report for specific site [place] MANUAL DIFF Collected: 10/02/2018 Status: F Source: [facility] 1:16 PM [facility] ORDERABLE. REPOSITORY TYPE CODE TESTS RESULT OUT OF REFERENCE UNITS RANGE LAB WNEU % [place] Neut% 2 LAB WLYM % [place] Lymp% 26 LAB WBLAST 0 % High [place] Blast 72 LAB WNRBC 0 /100 WBC High [place] nRBC 1 LAB WRBCM [place] RBC Slight Morph Result Comment: Polychromasia Anisocytosis 1+ Ovalocytes LAB WPLTE [place] Platelet Platelet Est estimate decreased Performed By: #### ANDF, WAGCBC #### [facility] link bird [address] [place], [place] [address] [place] ABS GR + CBC Collected: 10/02/2018 Status: F Source: [place] 1:16 PM [facility] REPOSITORY TYPE CODE TESTS RESULT OUT OF REFERENCE UNITS RANGE LAB WWBC 3.70-11.00 k/uL [place] WBC 8.85 Result Comment: Result rechecked. LAB WRBC 3.90-5.20 m/uL Low [place] RBC 2.46 LAB WHGB 11.5-15.5 g/dL Low [place] Hemoglobin 7.8 LAB WHCT 36.0-46.0 % Low [place] Hematocrit 24.1 LAB WMCV 80.0-100.0 fL [place] MCV 98.0 LAB WMCH 26.0-34.0 pg [place] MCH 31.7 LAB WMCHC 30.5-36.0 g/dL [place] MCHC 32.4 LAB WRDW 11.5-15.0 % [place] RDW High 20.3 LAB WPLT 150-400 k/uL Low [place] Alert Platelet Cnt 4 Result Comment: Result rechecked. No clot detected. Platelet count confirmed by manual review of peripheral blood smear. Called to and read back by: DR Daina GOLDMAN HEM/ONC 10/02/182138 JUANI LAB WMPV 9.0-12.7 fL [place] MPV Unable to report LAB ABSNUC <0.01 k/uL Absolute nRBC Rechecked, called to and read back by: Result Comment: PLT=5,WBC=9.10 B.BRINDLY BY KATHRYN 1343 Performed By: #### WMANDF, WAGCBC #### [facility] [address] [place], [place] [address] TYPE AND SCREEN Collected: 10/02/2018 Status: F Source: [place] 1:10 PM [facility] REPOSITORY Order Comment: PRETRANSFUSION HGB = 7.8 HCT = 24.1 PERFORMED AT [facility] PRETRANSFUSION PLT = 5 PERFORMED AT [facility] CMV NEG?* N CMV NEG? N Give When? 10/03/18 AFTER CHEMO Irradiated? N Leukodepleted? Y Reason for Type AND Screen/Red Cells: ANEMIA TYPE CODE TESTS RESULT OUT OF RANGE REFERENCE UNITS LAB B10.0800 O Normal BLOOD TYPE GEL NEGATIVE LAB B100.4000 Normal Antibody NEGATIVE Screen Performed By: #### B101.7450 #### [facility] [address] [place] [place], [address] PPHR Collected: 10/02/2018 Status: F Source: [place] 1:10 PM [facility] REPOSITORY TYPE CODE TESTS RESULT OUT OF REFERENCE UNITS RANGE LAB U100.0700 [id number] TRANSFUSED PRODUCT: Platelets Apheresis PPHR LR SD COUNT: 2 Performed By: #### U100.0700 #### [facility] - refer to report for specific site RC Collected: 10/02/2018 Status: F Source: [place] 1:10 PM [facility] REPOSITORY TYPE CODE TESTS RESULT OUT OF REFERENCE UNITS RANGE LAB U100.0000 [id number] TRANSFUSED PRODUCT: T AND S with Crossmatch, Red Cells COUNT: 2 Performed By: #### U100.0000 #### [facility] - refer to report for specific site [place] MANUAL DIFF Collected: 09/29/2018 Status: F Source: [facility] 1:53 PM [facility] ORDERABLE. REPOSITORY TYPE CODE TESTS RESULT OUT OF REFERENCE UNITS RANGE LAB WLYM % 18 [place] Lymp% LAB WMON % 2 [place]% LAB WMYELO 0 % 2 High [place] Myelocyte LAB WBLAST 0 % 78 High [place] Blast LAB WNRBC 0 /100 WBC 1 High [place] nRBC LAB WRBCM [place] RBC Anisocytosis Morph Result Comment: Slight Polychromasia 1+ Ovalocytes 1+ Schistocytes LAB WPLTE [place] Platelet Platelet Est estimate decreased Performed By: #### WMANDF, WAGCBC #### [facility] [address] [place], [place] [address] [place] ABS GR + CBC Collected: 09/29/2018 Status: F Source: [place] 1:53 PM [facility] REPOSITORY TYPE CODE TESTS RESULT OUT OF REFERENCE UNITS RANGE LAB WWBC 3.70-11.00 k/uL [place] High WBC 12.23 LAB WRBC 3.90-5.20 m/uL Low [place] RBC 2.94 LAB WHGB 11.5-15.5 g/dL Low [place] Hemoglobin 9.3 LAB WHCT 36.0-46.0 % Low [place] Hematocrit 28.8 LAB WMCV 80.0-100.0 fL [place] MCV 98.0 LAB WMCH 26.0-34.0 pg [place] MCH 31.6 LAB WMCHC 30.5-36.0 g/dL [place] MCHC 32.3 LAB WRDW 11.5-15.0 % [place] High RDW 20.7 LAB WPLT 150-400 k/uL Low [place] Alert Platelet Cnt 5 Result Comment: Rechecked, called to and read back by: CAROLE Colon,LEONARDO,[id number],GUI LAB ABSNUC <0.01 k/uL PRELIM Absolute nRBC WBC=12.42 Performed By: #### ANDF, WAGCBC #### [facility] [address] [place] [address] ABO RH BLOOD TYPE, Collected: 09/29/2018 Status: F Source: [place] PATIENT 1:50 PM [facility] REPOSITORY Order Comment: PRETRANSFUSION PLT = 5 PERFORMED AT [facility] CMV NEG? N Give When? 09/30/18 Irradiated? N TYPE CODE TESTS RESULT OUT OF RANGE REFERENCE UNITS LAB B10.0800 O Normal BLOOD NEGATIVE TYPE GEL Performed By: #### B10.0010 #### [facility] [address] [place] [address]. [place], [place], [address] PPHR Collected: 09/29/2018 Status: F Source: [place] 1:50 PM [facility] REPOSITORY TYPE CODE TESTS RESULT OUT OF REFERENCE UNITS RANGE LAB U100.0700 [id number] TRANSFUSED PRODUCT: Platelets Apheresis PPHR LR SD COUNT: 2 Performed By: #### U100.0700 #### [facility] - refer to report for specific site [place] CBC AND DIFF Collected: 09/25/2018 Status: F Source: [place] 12:13 PM [facility] REPOSITORY TYPE CODE TESTS RESULT OUT OF REFERENCE UNITS RANGE LAB WWBC 3.70-11.00 k/uL High [place] WBC 13.11 Result Comment: Result checked and verified No clot detected. LAB WRBC 3.90-5.20 m/uL Low [place] RBC 3.03 LAB WHGB 11.5-15.5 g/dL Low [place] Hemoglobin 9.7 LAB WHCT 36.0-46.0 % Low [place] Hematocrit 29.4 LAB WMCV 80.0-100.0 fL [place] MCV 97.0 LAB WMCH 26.0-34.0 pg [place] MCH 32.0 LAB WMCHC 30.5-36.0 g/dL [place] MCHC 33.0 LAB WRDW 11.5-15.0 % [place] RDW High 20.9 LAB WPLT 150-400 k/uL Low [place] Alert Platelet Cnt 3 Result Comment: Result checked and verified No clot detected. Platelet count confirmed by manual review of peripheral blood smear. Final report called to and read back by JOSHUA PATTERSON 1221 09.25.18 BYBESSY/NAIN Called to and read back by: Dr. Knapp 09/25/20182119 by Scott Leahy. LAB CBCCOM PRELIM WBC 13.87, PLATELET=0, CALLED TO CAROLE Colon,LEONARDO,[id number],BY.BYBESSY Comment LAB WLYM 23 % [place] Lymp% LAB WBLAST 77 0 % High [place] Blast LAB WNRBC 3 0 /100 WBC High [place] nRBC LAB WALYM 1.00 k/uL 3.02 -4.0 0 [place] Abs Lymp LAB WRBCM Anisocytosis [place] RBC Morph Result Comment: Slight Polychromasia 1+ Schistocytes 1+ Ovalocytes LAB WDFCOM [place] Saroj Rods Diff Comment LAB WPLTE [place] Platelet Platelet Est estimate decreased Performed By: #### WCBCDF #### [facility] [address] [place], [place] [address] ABO RH BLOOD TYPE, Collected: 09/25/2018 Status: F Source: [place] PATIENT 12:05 PM [facility] REPOSITORY Order Comment: PRETRANSFUSION PLT = 0 [facility] CMV NEG? N Give When? 09-26-18 AT 11AM Irradiated? N TYPE CODE TESTS RESULT OUT OF RANGE REFERENCE UNITS LAB B10.0800 O Normal BLOOD NEGATIVE TYPE GEL Performed By: #### B10.0010 #### [facility] [address] [place], [address] PPHR Collected: 09/25/2018 Status: F Source: [place] 12:05 PM [facility] REPOSITORY TYPE CODE TESTS RESULT OUT OF REFERENCE UNITS RANGE LAB U100.0700 [id number] TRANSFUSED PRODUCT: Platelets Apheresis PPHR LR SD COUNT: 2 Performed By: #### U100.0700 #### [facility] - refer to report for specific site PROGRESS Observed: 09/22/2018 Status: COMPLETED Source: [place] 9:41 AM [facility] REPOSITORY HNO ID: [id number] Author: Stephane Knapp Service: (none) Author Type: Physician Type: Progress Notes Filed: 09/22/2018 9:48 AM Note Text: Diagnosis: 1) AML. HPI: The patient is a 73-year-old female with a past medical history significant for hypertension who was seen by her PCP for increasing fatigue and headache. CBC evidently revealed pancytopenia with 68% blasts on peripheral smear. [facility] Per recent hospital discharge Principal Problem: Acute leukemia (HCC) Overview: Tari Black is a 73 year old female with PMH of HTN and arthritis being admitted due to concern for acute [...] Vidaza locally. Appointment scheduled for 08/[address] [place] [address] Knapp. ? Active Problems: Pancytopenia (HCC) Overview: Secondary to acute leukemia - Transfuse LR + IR blood products for Hgb <8; Plt <10 or active bleeding - No transfusions today 08/19/2018 ? 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 - CT A/P: no e/o perianal abscess. - Start sitz baths PRN - Continue PRN Oxy IR - Continue topical Lidocaine PRN - Continue bowel regimen -->improving, 08/18. ? HTN (hypertension) Overview: - Hold home Lisinopril w/ soft BPs, c/o intermittent dizziness ? Electrolyte imbalance risk Overview: - Replete K, Mg per protocol - Reg diet ? Urinary retention Overview: Urinary retention noted on 08/15, possibly r/t constipation vs rectal pain - Strict I AND O' s - Continue bowel regimen -Discontinue angel catheter 08/18 - Bladder Scan on 08/19 with >900 cc urine retained; Straight Cath; Urology consulted, appreciate assistance - Urine culture; UA ordered - Flomax started (daily) 08/19 ? Hospital discharge follow-up Overview: - Appointment scheduled in [place] with Dr. Knapp for 08/20. - Follow up with Urology requested; Patient will get phone call to verify date and time; F/u with PCP int med (Dr Avalos) at [facility] on Saturday at 3PM - Home care consult for straight cath (Supplies per CM) BONE MARROW ASPIRATE, TOUCH PREPARATION, CLOT SECTION, CORE BIOPSY AND PERIPHERAL BLOOD (A-C): - ?ACUTE MYELOID LEUKEMIA, SEE COMMENT. COMMENT: Further subclassification requires correlation with clinical presentation and with pending molecular and cytogenetic studies. 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 Current therapy: 1) Vidaza. Presents for ongoing hematologic management. Interim history: She had significant nausea when using Phenergan as an antiemetic during initial administration. Once change Zofran, that helped the nausea significantly. She is however getting fairly frequent headaches after taking it. These of been manageable. Her energy level is down. Her appetite fluctuates. She's had no unusual bleeding or unexplained bruising. Urrinary retention has self resolved and she has discontinued self-catheterization. She feels she is urinating to completion. She is taking prophylactic acyclovir and levofloxacin. She's not had any episode of fever, chills or night sweats. PMH, medications and allergies personally reviewed by me today. Any changes documented in appropriate section. ROS: Constitutional: See above. Neuro: Denies PARRA, vertigo, dizziness and imbalance. Denies symptoms of neuropathy. HEENT: No recent change in voice, vision or hearing. Resp: Denies cough, wheeze and hemoptysis. Denies shortness of breath at rest. CVS: Denies exertional chest pain, PND, orthopnea and LE edema. GI: Denies dysgeusia. Denies symptoms of stomatitis. Denies dysphagia and odynophagia. Denies reflux, n/v, change in bowel habits (frequent constipation) and abdominal pain. : Denies dysuria or gross hematuria. Endo: Denies hot flashes. Denies polyuria and polydipsia. Denies heat and cold intolerance. Musculoskeletal: Denies bone, back, joint and muscular pain. Derm: Denies rash. Denies jaundice and diffuse pruritis. Heme: See above. Psych: Normal mood. PHYSICAL EXAM: Vitals: Blood pressure 134/75, pulse 100, temperature 37.1 ?C (98.8 ?F), temperature source Temporal Artery, weight 95.3 kg (210 lb). Fatigued-appearing and in no acute distress. EYES: Sclerae are anicteric bilaterally. NECK: Supple. LYMPHATIC: There is no palpable cervical, supraclavicular adenopathy. RESPIRATORY: Inspiratory breath sounds are of normal intensity in all delgado. No rales, wheezes or rhonchi. CARDIOVASCULAR: Rhythm is regular. Normal intensity S1/S2. There is no gallop or murmur. ABDOMEN: The abdomen is nondistended. No tenderness. Extremities: No swelling or edema. SKIN: No jaundice or rash. Petechiae and small purpura left forearm. NEUROLOGIC: scholarship counselor II-XII are grossly intact. ASSESSMENT/PLAN: (C95.00) Acute leukemia not having achieved remission (HCC) (primary encounter diagnosis) Assessment: -KPS is 70-80%. -Tolerating Vidaza well with the exception of nausea which was controlled much better with ondansetron. -Stable blast percentage overall. -Marked decrease in platelet count since starting therapy. She's been receiving platelet transfusions twice a week. No unusual bleeding or unexplained bruising however. -Discussed with the family today that I would like to delay treatment 1 week in order to see if there's any platelet recovery. Plan: -CBC/possible transfusion twice weekly. -Second cycle Vidaza next week regardless of plt count. -Bone marrow biopsy after 4-6 months of therapy. -Continue Levaquin and acyclovir prophylaxis. Stephane Knapp DO CNOVSP Observed: 09/22/2018 Status: COMPLETED Source: [place] 9:10 AM [facility] REPOSITORY Visit (SP) Office ([place]) TARI BLACK ([id number]) 1945 F Date Time Provider Department 09/22/18 9:10 AM STEPHANE KNAPP During your visit today, we recorded the following information about you: Temperature Pulse Blood pressure Weight 98.8 degrees 100/minute 134/75 95.3 kg Stephane Knapp DO 09/22/2018 9:48 AM Signed Diagnosis: 1) AML. HPI: The patient is a 73-year-old female with a past medical history significant for hypertension who was seen by her PCP for increasing fatigue and headache. CBC evidently revealed pancytopenia with 68% blasts on peripheral smear. [facility] Per [facility] hospital discharge Principal Problem: Acute leukemia (HCC) Overview: Tari Black is a 73 year old female with PMH of HTN and arthritis being admitted due to concern for acute [...] Vidaza locally. Appointment scheduled for 08/[address] [place] [address] Knapp. ? Active Problems: Pancytopenia (HCC) Overview: Secondary to acute leukemia - Transfuse LR + IR blood products for Hgb <8; Plt <10 or active bleeding - No transfusions today 08/19/2018 ? 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 - CT A/P: no e/o perianal abscess. - Start sitz baths PRN - Continue PRN Oxy IR - Continue topical Lidocaine PRN - Continue bowel regimen -->improving, 08/18. ? HTN (hypertension) Overview: - Hold home Lisinopril w/ soft BPs, c/o intermittent dizziness ? Electrolyte imbalance risk Overview: - Replete K, Mg per protocol - Reg diet ? Urinary retention Overview: Urinary retention noted on 08/15, possibly r/t constipation vs rectal pain - Strict I AND O' s - Continue bowel regimen -Discontinue angel catheter 08/18 - Bladder Scan on 08/19 with >900 cc urine retained; Straight Cath; Urology consulted, appreciate assistance - Urine culture; UA ordered - Flomax started (daily) 08/19 ? Hospital discharge follow-up Overview: - Appointment scheduled in [place] with Dr. Knapp for 08/20. - Follow up with Urology requested; Patient will get phone call to verify date and time; F/u with PCP int med (Dr Avalos) at [facility] on Saturday at 3PM - Home care consult for straight cath (Supplies per CM) BONE MARROW ASPIRATE, TOUCH PREPARATION, CLOT SECTION, CORE BIOPSY AND PERIPHERAL BLOOD (A-C): - ?ACUTE MYELOID LEUKEMIA, SEE COMMENT. COMMENT: Further subclassification requires correlation with clinical presentation and with pending molecular and cytogenetic studies. 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 Current therapy: 1) Vidaza. Presents for ongoing hematologic management. Interim history: She had significant nausea when using Phenergan as an antiemetic during initial administration. Once change Zofran, that helped the nausea significantly. She is however getting fairly frequent headaches after taking it. These of been manageable. Her energy level is down. Her appetite fluctuates. She's had no unusual bleeding or unexplained bruising. Urrinary retention has self resolved and she has discontinued self-catheterization. She feels she is urinating to completion. She is taking prophylactic acyclovir and levofloxacin. She's not had any episode of fever, chills or night sweats. PMH, medications and allergies personally reviewed by me today. Any changes documented in appropriate section. ROS: Constitutional: See above. Neuro: Denies PARRA, vertigo, dizziness and imbalance. Denies symptoms of neuropathy. HEENT: No recent change in voice, vision or hearing. Resp: Denies cough, wheeze and hemoptysis. Denies shortness of breath at rest. CVS: Denies exertional chest pain, PND, orthopnea and LE edema. GI: Denies dysgeusia. Denies symptoms of stomatitis. Denies dysphagia and odynophagia. Denies reflux, n/v, change in bowel habits (frequent constipation) and abdominal pain. : Denies dysuria or gross hematuria. Endo: Denies hot flashes. Denies polyuria and polydipsia. Denies heat and cold intolerance. Musculoskeletal: Denies bone, back, joint and muscular pain. Derm: Denies rash. Denies jaundice and diffuse pruritis. Heme: See above. Psych: Normal mood. PHYSICAL EXAM: Vitals: Blood pressure 134/75, pulse 100, temperature 37.1 ?C (98.8 ?F), temperature source Temporal Artery, weight 95.3 kg (210 lb). Fatigued-appearing and in no acute distress. EYES: Sclerae are anicteric bilaterally. NECK: Supple. LYMPHATIC: There is no palpable cervical, supraclavicular adenopathy. RESPIRATORY: Inspiratory breath sounds are of normal intensity in all delgado. No rales, wheezes or rhonchi. CARDIOVASCULAR: Rhythm is regular. Normal intensity S1/S2. There is no gallop or murmur. ABDOMEN: The abdomen is nondistended. No tenderness. Extremities: No swelling or edema. SKIN: No jaundice or rash. Petechiae and small purpura left forearm. NEUROLOGIC: scholarship counselor II-XII are grossly intact. ASSESSMENT/PLAN: (C95.00) Acute leukemia not having achieved remission (HCC) (primary encounter diagnosis) Assessment: -KPS is 70-80%. -Tolerating Vidaza well with the exception of nausea which was controlled much better with ondansetron. -Stable blast percentage overall. -Marked decrease in platelet count since starting therapy. She's been receiving platelet transfusions twice a week. No unusual bleeding or unexplained bruising however. -Discussed with the family today that I would like to delay treatment 1 week in order to see if there's any platelet recovery. Plan: -CBC/possible transfusion twice weekly. -Second cycle Vidaza next week regardless of plt count. -Bone marrow biopsy after 4-6 months of therapy. -Continue Levaquin and acyclovir prophylaxis. Stephane Knapp DO Referring Provider: SETPHANE KNAPP [[id number]] Allergies As of Date: 09/22/2018 (No Known Allergies) Date Reviewed: 09/22/2018 Reviewed by: Lesli Hook - Fully Assessed Reason for Visit: Established Patient [175] Primary Visit Diagnosis:Acute leukemia not having achieved remission (HCC) [C95.00] Follow-up and Disposition History Recorded Prescriptions as of 09/22/2018 Sig: OXYCODONE 5 MG TABLET Take 5 mg by mouth every 6 ho* ACYCLOVIR 400 MG TABLET Take 1 tablet by mouth twice * LEVOFLOXACIN 500 MG TABLET Take 1 tablet by mouth once d* ONDANSETRON HCL 8 MG TABLET Take 1 tablet by mouth every * TAMSULOSIN 0.4 MG CAPSULE Take 1 capsule by mouth once * Problem List As Of Date 09/22/2018 Noted Resolved Pancytopenia (HCC) [D61.818] INVALID FOR* [...] Hx of transfusion [Z92.89] INVALID FOR* More... Encounter Status:Closed by STEPHANE KNAPP DO on 09/22/18 [place] CBC AND DIFF Collected: 09/22/2018 Status: F Source: [place] 8:54 AM [facility] REPOSITORY TYPE CODE TESTS RESULT OUT OF REFERENCE UNITS RANGE LAB WWBC 3.70-11.00 k/uL High [place] WBC 12.62 Result Comment: Result rechecked. Sample checked for a clot. LAB WRBC 3.90-5.20 m/uL Low [place] RBC 2.55 LAB WHGB 11.5-15.5 g/dL Low [place] Hemoglobin 8.2 LAB WHCT 36.0-46.0 % Low [place] Hematocrit 25.5 LAB WMCV 80.0-100.0 fL [place] MCV 100.0 LAB WMCH 26.0-34.0 pg [place] MCH 32.2 LAB WMCHC 30.5-36.0 g/dL [place] MCHC 32.2 LAB WRDW 11.5-15.0 % [place] RDW High 20.3 LAB WPLT 150-400 k/uL Low [place] Alert Platelet Cnt <2 Result Comment: Rechecked, called to and read back by: RAINE,[id number],BYJOSE MIGUEL LAB WMPV 9.0-12.7 fL Unable to [place] MPV report LAB CBCCOM PRELIM WBC Comment 13.53 LAB WNEU % 2 [place] Neut% LAB WLYM % 17 [place] Lymp% LAB WMON % 1 [place]% LAB WBLAST 0 % 80 High [place] Blast LAB WNRBC 0 /100 WBC 3 High [place] nRBC LAB WANEU 1.45-7.50 k/uL 0.25 Low [place] Abs Neut LAB WALYM 1.00-4.00 k/uL 2.15 [place] Abs Lymp LAB WAMON <0.87 k/uL 0.13 [place] Abs [place] LAB WRBCM Anisocytosis [place] RBC Morph Result Comment: 1+ Tear Drop Cells 1+ Ovalocytes Slight Polychromasia LAB WPLTE [place] Platelet Platelet Est estimate decreased Performed By: #### WCBCDF #### [facility] [address] [place], [place] [address] BASIC METABOLIC PANL Collected: 09/22/2018 Status: F Source: [place] 8:53 AM [facility] REPOSITORY TYPE CODE TESTS RESULT OUT OF REFERENCE UNITS RANGE LAB GLU 74-99 mg/dL Requisitioning Glucose entry error Result Comment: WRONG TEST LOCATION Account Credited [facility] [id number] Performed By: #### BMP #### [facility] [address] [place], [place] [address] TYPE AND SCREEN Collected: 09/22/2018 Status: F Source: [place] 8:50 AM [facility] REPOSITORY Order Comment: PRETRANSFUSION HGB = 8.2 HCT = 25.5 PERFORMED AT [facility] PRETRANSFUSION PLT = <2 PERFORMED AT [facility] CMV NEG?* N CMV NEG? N Give When? 09/23/18 08:30AM Irradiated? N Leukodepleted? Y Reason for Type AND Screen/Red Cells: ANEMIA TYPE CODE TESTS RESULT OUT OF RANGE REFERENCE UNITS LAB B10.0800 O Normal BLOOD TYPE GEL NEGATIVE LAB B100.4000 Normal Antibody NEGATIVE Screen Performed By: #### B101.7450 #### [facility] [address] [place], [address] PPHR Collected: 09/22/2018 Status: F Source: [place] 8:50 AM [facility] REPOSITORY TYPE CODE TESTS RESULT OUT OF REFERENCE UNITS RANGE LAB U100.0700 [id number] TRANSFUSED PRODUCT: Platelets Apheresis PPHR LR SD COUNT: 2 Performed By: #### U100.0700 #### [facility] - refer to report for specific site RC Collected: 09/22/2018 Status: F Source: [place] 8:50 AM [facility] REPOSITORY TYPE CODE TESTS RESULT OUT OF REFERENCE UNITS RANGE LAB U100.0000 [id number] TRANSFUSED PRODUCT: T AND S with Crossmatch, Red Cells COUNT: 2 Performed By: #### U100.0000 #### [facility] - refer to report for specific site BASIC METABOLIC PANL Collected: 09/22/2018 Status: F Source: [place] 8:40 AM [facility] REPOSITORY TYPE CODE TESTS RESULT OUT OF REFERENCE UNITS RANGE LAB GLU 74-99 mg/dL High Glucose 162 Result Comment: The [place] Diabetes Association (ADA) provides guidance for cutoff values for fasting glucose and random glucose. The ADA defines fasting as no caloric intake for at least 8 hours. Fas ting plasma glucose results between 100 to 125 [...] Standards of Medical Care in Diabetes 2016, [place] Diabetes Association. Diabetes Care. 2016.39(Suppl 1). LAB BUN 7-21 mg/dL BUN 13 LAB CRET 0.58-0.96 mg/dL Creatinine 0.89 LAB NA 136-144 mmol/L Sodium 140 LAB K 3.7-5.1 mmol/L Potassium 4.2 LAB CL 97-105 mmol/L Chloride 100 LAB CO2 22-30 mmol/L CO2 22 LAB AGAP 9-18 mmol/L Anion Gap 18 LAB CA 8.5-10.2 mg/dL Calcium, High Total 10.5 LAB GFRAA eGFR- Amer. >60 LAB GFRNAA [...] accurately reflect actual GFR. Performed By: #### BMP #### [facility] [address] [place], [place] [address] HEPATIC FUNCTN PANEL Collected: 09/22/2018 Status: F Source: [place] 8:40 AM [facility] REPOSITORY TYPE CODE TESTS RESULT OUT OF REFERENCE UNITS RANGE LAB ALB 3.9-4.9 g/dL Albumin 4.3 LAB TBIL 0.2-1.3 mg/dL Bilirubin, High Total 1.8 LAB CBIL <0.2 mg/dL High Bilirubin,Conjuga 0.3 tara LAB ALKP 34-123 U/L Alkaline Phosphatase 69 LAB AST 13-35 U/L AST 27 LAB ALT 7-38 U/L ALT 14 LAB TP 6.3-8.0 g/dL Protein, Total 7.2 Performed By: #### HFP, MG1 #### [facility] [address] [place], [place] [address] MAGNESIUM Collected: 09/22/2018 Status: F Source: [place] 8:40 AM [facility] REPOSITORY TYPE CODE TESTS RESULT OUT OF REFERENCE UNITS RANGE LAB MG 1.7-2.3 mg/dL Magnesium 2.1 Performed By: #### HFP, MG1 #### [facility] [address] [place], [place] [address] ABO RH BLOOD TYPE, Collected: 09/18/2018 Status: F Source: [place] PATIENT 8:29 AM [facility] REPOSITORY Order Comment: PRETRANSFUSION PLT = <2 PERFORMED AT [facility] CMV NEG? N Give When? 09/19/18 @1200 Irradiated? N TYPE CODE TESTS RESULT OUT OF RANGE REFERENCE UNITS LAB B10.0800 O Normal BLOOD NEGATIVE TYPE GEL Performed By: #### B10.0010 #### [facility] [address] [place], [place], [address] PPHR Collected: 09/18/2018 Status: F Source: [place] 8:29 AM [facility] REPOSITORY TYPE CODE TESTS RESULT OUT OF REFERENCE UNITS RANGE LAB U100.0700 [id number] TRANSFUSED PRODUCT: Platelets Apheresis PPHR LR SD COUNT: 2 Performed By: #### U100.0700 #### [facility] - refer to report for specific site [place] ABS GR + CBC Collected: 09/18/2018 Status: F Source: [place] 8:24 AM [facility] REPOSITORY TYPE CODE TESTS RESULT OUT OF REFERENCE UNITS RANGE LAB WWBC 3.70-11.00 k/uL High [place] WBC 11.15 Result Comment: Result rechecked. Sample checked for a clot. LAB WRBC 3.90-5.20 m/uL Low [place] RBC 2.71 LAB WHGB 11.5-15.5 g/dL Low [place] Hemoglobin 8.8 LAB WHCT 36.0-46.0 % Low [place] Hematocrit 26.7 LAB WMCV 80.0-100.0 fL [place] MCV 98.5 LAB WMCH 26.0-34.0 pg [place] MCH 32.5 LAB WMCHC 30.5-36.0 g/dL [place] MCHC 33.0 LAB WRDW 11.5-15.0 % [place] RDW High 20.0 LAB WPLT 150-400 k/uL Low [place] Alert Platelet Cnt <2 Result Comment: CKDPR,JOSELINE,PORCELAIN ENAMEL INSTALLER,[id number],BYJOSE MIGUEL Platelet count confirmed by manual review of peripheral blood smear. LAB WMPV 9.0-12.7 fL [place] MPV Unable to report LAB ABGRAN 1.45-7.50 k/uL Absol Low Gran Count 0.00 LAB ABSNUC <0.01 k/uL Absolute nRBC PRELIM WBC=11.43 Performed By: #### JAMES, DIFF #### [facility] [address] [place], [place] [address] DIFFERENTIAL Collected: 09/18/2018 Status: F Source: [place] ([facility] LAB USE 8:24 AM [facility] ONLY) REPOSITORY TYPE CODE TESTS RESULT OUT OF REFERENCE UNITS RANGE LAB NEUT % Neut% 17 LAB LYMPH % 23 Lymph% LAB MYELO % 2 Myelo% LAB BLAST 0 % High 58 Blast% LAB NRBC 0 /100 WBC High NRBCs 1 LAB RBCMOR Red SEE COMMENT Cell Morph Result Comment: Anisocytosis Slight Polychromasia Few Ovalocytes Platelet estimate decreased LAB DIFCOM Diff SEE Comments COMMENT Result Comment: Left Shift Performed By: #### JAMES, DIFF #### [facility] [address] [place], [place] [address] [place] MANUAL DIFF Collected: 09/15/2018 Status: F Source: [place] NOT 12:59 PM [facility] ORDERABLE. REPOSITORY TYPE CODE TESTS RESULT OUT OF REFERENCE UNITS RANGE LAB WNEU % [place] Neut% 1 LAB WLYM % [place] Lymp% 26 LAB WBLAST 0 % High [place] Blast 73 LAB WRBCM [place] RBC FEW Morph Result Comment: Ovalocytes Few RBC Fragments Anisocytosis Slight Polychromasia LAB WPLTE [place] Platelet Platelet Est estimate decreased Performed By: #### WMANDKEI MylesBC #### [facility] [address] [place] [address] [place] ABS GR + CBC Collected: 09/15/2018 Status: F Source: [place] 12:59 PM [facility] REPOSITORY TYPE CODE TESTS RESULT OUT OF REFERENCE UNITS RANGE LAB WWBC 3.70-11.00 k/uL [place] WBC 10.86 LAB WRBC 3.90-5.20 m/uL Low [place] RBC 2.78 LAB WHGB 11.5-15.5 g/dL Low [place] Hemoglobin 9.1 LAB WHCT 36.0-46.0 % Low [place] Hematocrit 27.4 LAB WMCV 80.0-100.0 fL [place] MCV 98.6 LAB WMCH 26.0-34.0 pg [place] MCH 32.7 LAB WMCHC 30.5-36.0 g/dL [place] MCHC 33.2 LAB WRDW 11.5-15.0 % [place] High RDW 20.0 LAB WPLT 150-400 k/uL Low [place] Alert Platelet Cnt 5 Result Comment: Result rechecked. No clot detected. Platelet count confirmed by manual review of peripheral blood smear. Final report called to and read back by Daina Campoverde RPO [id number] 09.15.2018 [place] LAB WMPV 9.0-12.7 fL [place] MPV Unable to report LAB ABGRAN 1.45-7.50 k/uL Low Absol Gran 0.11 Count Result Comment: Result rechecked. LAB ABSNUC <0.01 k/uL Preliminary Absolute nRBC result. Interpret with caution. Final results may vary. Results requested and read back by: Result Comment: WBC=10.86,PLT=5(CRITICAL)JOSHUA BY KATHRYN 1329 Performed By: #### WMANDF, JAMES #### [facility] [address] [place], [place] [address] ABO RH BLOOD TYPE, Collected: 09/15/2018 Status: F Source: [place] PATIENT 12:57 PM [facility] REPOSITORY Order Comment: PRETRANSFUSION PLT = 5 PERFORMED AT [facility] CMV NEG? N Give When? 09/16/18 @ 0830 Irradiated? N TYPE CODE TESTS RESULT OUT OF RANGE REFERENCE UNITS LAB B10.0800 O Normal BLOOD NEGATIVE TYPE GEL Performed By: #### B10.0010 #### [facility] [address] [place], [place], [address] PPHR Collected: 09/15/2018 Status: F Source: [place] 12:57 PM [facility] REPOSITORY TYPE CODE TESTS RESULT OUT OF REFERENCE UNITS RANGE LAB U100.0700 [id number] TRANSFUSED PRODUCT: Platelets Apheresis PPHR LR SD COUNT: 2 Performed By: #### U100.0700 #### [facility] - refer to report for specific site ABO RH BLOOD TYPE, Collected: 09/11/2018 Status: F Source: [place] PATIENT 8:14 AM [facility] REPOSITORY Order Comment: PRETRANSFUSION HGB = 9.3 HCT = PERFORMED AT [facility] PRETRANSFUSION PLT = 19 PERFORMED AT [facility] CMV NEG? N Give When? 09/12/18 Irradiated? N Comments: @0830 TYPE CODE TESTS RESULT OUT OF RANGE REFERENCE UNITS LAB B10.0800 O Normal BLOOD NEGATIVE TYPE GEL Performed By: #### B10.0010 #### [facility] [place], [place], [address] PPHR Collected: 09/11/2018 Status: F Source: [place] 8:14 AM [facility] REPOSITORY TYPE CODE TESTS RESULT OUT OF REFERENCE UNITS RANGE LAB U100.0700 [id number] TRANSFUSED PRODUCT: Platelets Apheresis PPHR LR SD COUNT: 2 Performed By: #### U100.0700 #### [facility] - refer to report for specific site [place] MANUAL DIFF Collected: 09/11/2018 Status: F Source: [place] NOT 8:10 AM [facility] ORDERABLE. REPOSITORY TYPE CODE TESTS RESULT OUT OF REFERENCE UNITS RANGE LAB WLYM % 26 [place] Lymp% LAB WBLAST 0 % 74 High [place] Blast LAB WRBCM [place] Anisocytosis RBC Morph Result Comment: Slight Polychromasia Few Ovalocytes LAB WDFCOM [place] Saroj Rods Diff Comment LAB WPLTE [place] Platelet Platelet Est estimate decreased Performed By: #### WMANDF #### [facility] [address] [place] [id number] PROGRESS Observed: 09/08/2018 Status: COMPLETED Source: [place] 4:08 PM [facility] REPOSITORY HNO ID: [id number] Author: Samra Berkowitz (Sw) Service: (none) Author Type: Electricity Trader Type: Progress Notes Filed: 09/08/2018 4:09 PM Note Text: Social Work Problem Referral Note INFORMATION/REFERRAL : Tari Black 73 year old female was referred by family - Name: Sharon, daughter to [facility] Social Work for the following reason(s): FMLA PERSONS INTERVIEWED: family - Name: Sharon INTERVENTION: Information AND Referral Service Co-ordination Affect/Mood: The patient is noted as patient not present IDENTIFIED PROBLEMS/NEEDS: FMLA for daughter to care for patient Intervention/Referral to be provided:No further intervention required IMPRESSION/PLAN: TRUE met with patient's daughter to complete FMLA for her to help care for patient. TRUE completed and provided to doctor to review/sign. TRUE then faxed to number provided by daughter and sent copy to scanning. F/U APPOINTMENT: YESENIA Browne ABO RH BLOOD TYPE, Collected: 09/08/2018 Status: F Source: [place] PATIENT 8:30 AM [facility] REPOSITORY Order Comment: PRETRANSFUSION HGB = 9.8 HCT = PERFORMED AT [facility] PRETRANSFUSION PLT = 2 PERFORMED AT [facility] CMV NEG? N Give When? 09/09/18 08:30AM Irradiated? N Comments: 09/09/18 TYPE CODE TESTS RESULT OUT OF RANGE REFERENCE UNITS LAB B10.0800 O Normal BLOOD NEGATIVE TYPE GEL Performed By: #### B10.0010 #### [facility] [address] [place], [address] PPHR Collected: 09/08/2018 Status: F Source: [place] 8:30 AM [facility] REPOSITORY TYPE CODE TESTS RESULT OUT OF REFERENCE UNITS RANGE LAB U100.0700 [id number] TRANSFUSED PRODUCT: Platelets Apheresis PPHR LR SD COUNT: 2 Performed By: #### U100.0700 #### [facility] - refer to report for specific site [place] ABS GR + CBC Collected: 09/08/2018 Status: F Source: [place] 8:30 AM [facility] REPOSITORY TYPE CODE TESTS RESULT OUT OF REFERENCE UNITS RANGE LAB WWBC 3.70-11.00 k/uL High [place] WBC 11.78 Result Comment: Result rechecked. Sample checked for a clot. LAB WRBC 3.90-5.20 m/uL Low [place] RBC 3.02 LAB WHGB 11.5-15.5 g/dL Low [place] Hemoglobin 9.8 LAB WHCT 36.0-46.0 % Low [place] Hematocrit 29.5 LAB WMCV 80.0-100.0 fL [place] MCV 97.7 LAB WMCH 26.0-34.0 pg [place] MCH 32.5 LAB WMCHC 30.5-36.0 g/dL [place] MCHC 33.2 LAB WRDW 11.5-15.0 % [place] RDW High 19.0 LAB WPLT 150-400 k/uL Low [place] Alert Platelet Cnt <2 Result Comment: Rechecked, called to and read back by: LEONARDO TREVIZO,[id number],BYJOSE MIGUEL LAB WMPV 9.0-12.7 fL Unable to [place] MPV assay. Analytical difficulty. Result Comment: Test performed at: [facility] [place] [facility], [address] [place] [address] Rd[address] [place] [address]. LAB ABGRAN 1.45-7.50 k/uL Absol Low Gran Count 0.00 LAB ABSNUC <0.01 k/uL Absolute nRBC PRELIM WBC 12.25 Performed By: #### WAGCBC, WMANDF #### [facility] [address] [place], [place] [address] [place] MANUAL DIFF Collected: 09/08/2018 Status: F Source: [facility] 8:30 AM [facility] ORDERABLE. REPOSITORY TYPE CODE TESTS RESULT OUT OF REFERENCE UNITS RANGE LAB WLYM % [place] Lymp% 10 LAB WMON % [place]% 1 LAB WBLAST 0 % High [place] Blast 89 LAB WNRBC 0 /100 WBC High [place] nRBC 1 LAB WRBCM [place] RBC 1+ Morph Result Comment: Ovalocytes Anisocytosis Slight Polychromasia LAB WPLTE [place] Platelet Platelet Est estimate decreased Performed By: #### WAGCBC, WMANDF #### [facility] [address] [place] [id number] CNSW Observed: 09/08/2018 Status: COMPLETED Source: [place] 12:00 AM [facility] REPOSITORY Social Work (HEMAWS) TARI BLACK ([id number]) 1945 F Date Time Provider Department 09/08/18 SAMRA BERKOWITZ (TRUE) FISH During your visit today, we recorded the following information about you: YESENIA Christopher 09/08/2018 4:09 PM Signed Social Work Problem Referral Note INFORMATION/REFERRAL : Tari Black 73 year old female was referred by family - Name: Sharon, daughter to [facility] Social Work for the following reason(s): FMLA PERSONS INTERVIEWED: family - Name: Sharon INTERVENTION: Information AND Referral Service Co-ordination Affect/Mood: The patient is noted as patient not present IDENTIFIED PROBLEMS/NEEDS: FMLA for daughter to care for patient Intervention/Referral to be provided:No further intervention required IMPRESSION/PLAN: TRUE met with patient's daughter to complete FMLA for her to help care for patient. TRUE completed and provided to doctor to review/sign. TRUE then faxed to number provided by daughter and sent copy to scanning. F/U APPOINTMENT: YESENIA Browne Allergies As of Date: 09/08/2018 (No Known Allergies) Date Reviewed: 08/28/2018 Reviewed by: Rox Helton - Fully Assessed Reason for Visit: Social Work Services [507] Cmt: FMLA Prescriptions as of 09/08/2018 Sig: ONDANSETRON HCL 8 MG TABLET Take 1 tablet by mouth every * ACYCLOVIR 400 MG TABLET Take 1 tablet by mouth twice * TAMSULOSIN 0.4 MG CAPSULE Take 1 capsule by mouth once * CATHETER 14 FR Insert 1 Each into the urethr* LEVOFLOXACIN 500 MG TABLET Take 1 tablet by mouth once d* Problem List As Of Date 09/08/2018 Noted Resolved [...] Hx of transfusion [Z92.89] INVALID FOR* More... Encounter Status:Closed by SAMRA BERKOWITZ on 09/08/18 [place] CBC Collected: 09/04/2018 Status: F Source: [place] 8:55 AM [facility] REPOSITORY TYPE CODE TESTS RESULT OUT OF REFERENCE UNITS RANGE LAB WWBC 3.70-11.00 k/uL [place] WBC 7.73 LAB WRBC 3.90-5.20 m/uL Low [place] RBC 2.50 LAB WHGB 11.5-15.5 g/dL Low [place] Hemoglobin 8.0 LAB WHCT 36.0-46.0 % Low [place] Hematocrit 24.3 LAB WMCV 80.0-100.0 fL [place] MCV 97.2 LAB WMCH 26.0-34.0 pg [place] MCH 32.0 LAB WMCHC 30.5-36.0 g/dL [place] MCHC 32.9 LAB WRDW 11.5-15.0 % [place] High RDW 18.5 LAB WPLT 150-400 k/uL Low [place] Alert Platelet Cnt 9 LAB WMPV 9.0-12.7 fL Low [place] MPV 8.7 Result Comment: Test performed at: [facility] [place] [facility], [address] [place] [address]. LAB ABSNUC <0.01 k/uL Rechecked, Absolute nRBC called to and read back by: Result Comment: JOSHUA BY Lopez MARIA 0922 TYPE AND SCREEN Collected: 09/04/2018 Status: F Source: [place] 8:51 AM [facility] REPOSITORY Order Comment: PRETRANSFUSION HGB = 8.0 HCT = PERFORMED AT [facility] PRETRANSFUSION PLT = 9 PERFORMED AT [facility] CMV NEG?* N CMV NEG? N Give When? 09/05 @0900 Irradiated? N Leukodepleted? Y Reason for Type AND Screen/Red Cells: ANEMIA TYPE CODE TESTS RESULT OUT OF RANGE REFERENCE UNITS LAB B10.0800 O Normal BLOOD TYPE GEL NEGATIVE LAB B100.4000 Normal Antibody NEGATIVE Screen Performed By: #### B101.7450 #### [facility] [address] [place], [address] PPHR Collected: 09/04/2018 Status: F Source: [place] 8:51 AM [facility] REPOSITORY TYPE CODE TESTS RESULT OUT OF REFERENCE UNITS RANGE LAB U100.0700 [id number] TRANSFUSED PRODUCT: Platelets Apheresis PPHR LR SD COUNT: 1 Performed By: #### U100.0700 #### [facility] - refer to report for specific site RC Collected: 09/04/2018 Status: F Source: [place] 8:51 AM [facility] REPOSITORY TYPE CODE TESTS RESULT OUT OF REFERENCE UNITS RANGE LAB U100.0000 [id number] TRANSFUSED PRODUCT: T AND S with Crossmatch, Red Cells COUNT: 2 Performed By: #### U100.0000 #### [facility] - refer to report for specific site [place] ABS GR + CBC Collected: 09/01/2018 Status: F Source: [place] 9:06 AM [facility] REPOSITORY TYPE CODE TESTS RESULT OUT OF REFERENCE UNITS RANGE LAB WWBC 3.70-11.00 k/uL [place] WBC 6.74 Result Comment: No clot detected. LAB WRBC 3.90-5.20 m/uL [place] RBC Low 2.85 LAB WHGB 11.5-15.5 g/dL [place] Low Hemoglobin 9.0 LAB WHCT 36.0-46.0 % [place] Low Hematocrit 26.9 LAB WMCV 80.0-100.0 fL [place] MCV 94.9 LAB WMCH 26.0-34.0 pg [place] MCH 31.6 LAB WMCHC 30.5-36.0 g/dL [place] MCHC 33.5 LAB WRDW 11.5-15.0 % [place] RDW High 18.0 LAB WPLT 150-400 k/uL [place] Low Platelet Cnt 11 Result Comment: CALLED TO JOSHUA,LEONARDO,[id number],BYJOSE MIGUEL LAB WMPV 9.0-12.7 fL [place] MPV 11.6 Result Comment: Test performed at: [facility] [place] [facility], [address] [place] [address] Rd[address] [place] [address]. LAB ABGRAN 1.45-7.50 k/uL Low Absol 0.19 Gran Count Performed By: #### WAGCBC #### [facility] [address] [place], [place] [id number] ABO RH BLOOD TYPE, Collected: 09/01/2018 Status: F Source: [place] PATIENT 8:57 AM [facility] REPOSITORY Order Comment: PRETRANSFUSION PLT = 11 PERFORMED AT [facility] CMV NEG? N Give When? 09/02 Irradiated? N TYPE CODE TESTS RESULT OUT OF RANGE REFERENCE UNITS LAB B10.0800 O Normal BLOOD NEGATIVE TYPE GEL Performed By: #### B10.0010 #### [facility] [address] [place], [place], [address] PPHR Collected: 09/01/2018 Status: F Source: [place] 8:57 AM [facility] REPOSITORY TYPE CODE TESTS RESULT OUT OF REFERENCE UNITS RANGE LAB U100.0700 [id number] TRANSFUSED PRODUCT: Platelets Apheresis PPHR LR SD COUNT: 2 Performed By: #### U100.0700 #### [facility] - refer to report for specific site [place] CBC Collected: 08/28/2018 Status: F Source: [place] 12:34 PM [facility] REPOSITORY TYPE CODE TESTS RESULT OUT OF REFERENCE UNITS RANGE LAB WWBC 3.70-11.00 k/uL [place] WBC 6.44 Result Comment: Result rechecked. LAB WRBC 3.90-5.20 m/uL [place] RBC Low 3.11 LAB WHGB 11.5-15.5 g/dL [place] Low Hemoglobin 9.8 LAB WHCT 36.0-46.0 % [place] Low Hematocrit 29.7 LAB WMCV 80.0-100.0 fL [place] MCV 95.5 LAB WMCH 26.0-34.0 pg [place] MCH 31.5 LAB WMCHC 30.5-36.0 g/dL [place] MCHC 33.0 LAB WRDW 11.5-15.0 % [place] RDW High 17.9 LAB WPLT 150-400 k/uL [place] Low Platelet Cnt 14 Result Comment: Rechecked, called to and read back by: MATARN,[id number],BYJOSE MIGUEL LAB WMPV 9.0-12.7 fL [place] MPV 11.6 Result Comment: Test performed at: [address] [place] [address]. LAB ABSNUC <0.01 k/uL Absolute nRBC PRELIM WBC 6.57 Performed By: #### WCBC #### [facility] [address] [place], [place] [address] ABO RH BLOOD TYPE, Collected: 08/28/2018 Status: F Source: [place] PATIENT 12:30 PM [facility] REPOSITORY Order Comment: PRETRANSFUSION PLT = 14 PERFORMED AT [facility] CMV NEG? N Give When? 08/29 1300 Irradiated? N TYPE CODE TESTS RESULT OUT OF RANGE REFERENCE UNITS LAB B10.0800 O Normal BLOOD NEGATIVE TYPE GEL Performed By: #### B10.0010 #### [facility] [address] [facility] [place], [address] PPHR Collected: 08/28/2018 Status: F Source: [place] 12:30 PM [facility] REPOSITORY TYPE CODE TESTS RESULT OUT OF REFERENCE UNITS RANGE LAB U100.0700 [id number] TRANSFUSED PRODUCT: Platelets Apheresis PPHR LR SD COUNT: 1 Performed By: #### U100.0700 #### [facility] - refer to report for specific site PROGRESS Observed: 08/28/2018 Status: COMPLETED Source: [place] 11:41 AM [facility] REPOSITORY HNO ID: [id number] Author: Dorothy Sepulveda Jr. 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 Ended up in retention. Catheter placed. Had subsequently been cathing after. Voiding well now. pvr 8cc today. Review of Systems Constitutional: Negative. Respiratory: Negative. Cardiovascular: Negative. Gastrointestinal: Negative. Genitourinary: Negative. Skin: Negative. Neurological: Negative. Psychiatric/Behavioral: Negative. LAB: Creatinine Date Value Ref Range Status 08/19/2018 0.75 0.58 - 0.96 mg/dL Final No results found for: PSA Glucose, Urine (mg/dL) Date Value 08/19/2018 Negative Bilirubin, Urine (no units) Date Value 08/19/2018 Negative Ketones, Urine (no units) Date Value 08/19/2018 Negative Specific [place], Ur (no units) Date Value 08/19/2018 1.014 Hemoglobin/Blood,Ur ( ) Date Value 08/19/2018 1+ pH, Urine (no units) Date Value 08/19/2018 7.0 Protein, Urine (mg/dL) Date Value 08/19/2018 Negative Nitrites (no units) Date Value 08/19/2018 Negative WBC, Urine (/HPF) Date Value 08/19/2018 0-5 MEDICATIONS: ondansetron (ZOFRAN) 8 mg tablet Take 1 tablet by mouth every 8 hours as needed for Nausea/Vomiting. acyclovir (ZOVIRAX) 400 mg tablet Take 1 tablet by mouth twice daily. tamsulosin ER (FLOMAX) 0.4 mg cap Take 1 capsule by mouth once daily. Catheter (SELF-CATHETER, FEMALE) 14 Fr misc Insert 1 Each into the urethra as needed (5x daily as needed for urinary retention). levoFLOXacin (LEVAQUIN) 500 mg tablet Take 1 tablet by mouth once daily. Take until directed to stop. HISTORIES PAST MEDICAL HISTORY Diagnosis Date - Arthritis - Hypertension FAMILY HISTORY Problem Relation Age of Onset - Diabetes Mother - Heart Father - Breast Cancer Sister SOCIAL HISTORY Social History Substance Use Topics - Smoking status: Never Smoker - Smokeless tobacco: Never Used - Alcohol use Not on file PHYSICAL EXAMINATION Ht 162.6 cm (5' 4) Wt 94.3 kg (208 lb) BMI 35.70 kg/m? General appearance: Well appearing, alert, in no acute distress and well-hydrated, well nourished Skin: Skin color, texture, turgor normal, no suspicious rashes or lesions Respiratory:+ effort Cardiovascular: Not examined GI: Normal abdominal exam, Abdomen soft, non-tender. No masses, organomegaly Musculoskeletal: normal ROM Neuro: No gross neurologic defecits Genitourinary: not examined ASSESSMENT: (R33.9) Urinary retention (primary encounter diagnosis) PLAN: Stop cathing Stop flomax Fu prn Dorothy Sepulveda Jr, MD CNOV Observed: 08/28/2018 Status: COMPLETED Source: [place] 11:00 AM [facility] REPOSITORY Office Visit (AKURFL) TARI BLACK ([id number]) 1945 F Date Time Provider Department 08/28/18 11:00 AM DOROTHY SEPULVEDA JR During your visit today, we recorded the following information about you: Weight Height 94.3 kg 1.626 m Dorothy Sepulveda Jr, MD 08/28/2018 11:42 AM Signed NEW PATIENT HISTORY AND PHYSICAL EXAM PATIENT INFO: Tari Black 73 year old REFERRING PROVIDER: Data Unavailable PCP: Yariel Villasenor MD HPI Tari Black is a 73 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 Undergoing treatment. Ended up in retention. Catheter placed. Had subsequently been cathing after. Voiding well now. pvr 8cc today. Review of Systems Constitutional: Negative. Respiratory: Negative. Cardiovascular: Negative. Gastrointestinal: Negative. Genitourinary: Negative. Skin: Negative. Neurological: Negative. Psychiatric/Behavioral: Negative. LAB: Creatinine Date Value Ref Range Status 08/19/2018 0.75 0.58 - 0.96 mg/dL Final No results found for: PSA Glucose, Urine (mg/dL) Date Value 08/19/2018 Negative Bilirubin, Urine (no units) Date Value 08/19/2018 Negative Ketones, Urine (no units) Date Value 08/19/2018 Negative Specific [place], Ur (no units) Date Value 08/19/2018 1.014 Hemoglobin/Blood,Ur ( ) Date Value 08/19/2018 1+ pH, Urine (no units) Date Value 08/19/2018 7.0 Protein, Urine (mg/dL) Date Value 08/19/2018 Negative Nitrites (no units) Date Value 08/19/2018 Negative WBC, Urine (/HPF) Date Value 08/19/2018 0-5 MEDICATIONS: ondansetron (ZOFRAN) 8 mg tablet Take 1 tablet by mouth every 8 hours as needed for Nausea/Vomiting. acyclovir (ZOVIRAX) 400 mg tablet Take 1 tablet by mouth twice daily. tamsulosin ER (FLOMAX) 0.4 mg cap Take 1 capsule by mouth once daily. Catheter (SELF-CATHETER, FEMALE) 14 Fr misc Insert 1 Each into the urethra as needed (5x daily as needed for urinary retention). levoFLOXacin (LEVAQUIN) 500 mg tablet Take 1 tablet by mouth once daily. Take until directed to stop. HISTORIES PAST MEDICAL HISTORY Diagnosis Date - Arthritis - Hypertension FAMILY HISTORY Problem Relation Age of Onset - Diabetes Mother - Heart Father - Breast Cancer Sister SOCIAL HISTORY Social History Substance Use Topics - Smoking status: Never Smoker - Smokeless tobacco: Never Used - Alcohol use Not on file PHYSICAL EXAMINATION Ht 162.6 cm (5' 4) Wt 94.3 kg (208 lb) BMI 35.70 kg/m? General appearance: Well appearing, alert, in no acute distress and well-hydrated, well nourished Skin: Skin color, texture, turgor normal, no suspicious rashes or lesions Respiratory:+ effort Cardiovascular: Not examined GI: Normal abdominal exam, Abdomen soft, non-tender. No masses, organomegaly Musculoskeletal: normal ROM Neuro: No gross neurologic defecits Genitourinary: not examined ASSESSMENT: (R33.9) Urinary retention (primary encounter diagnosis) PLAN: Stop cathing Stop flomax Fu prn Dorothy Sepulveda Jr, MD Referring Provider: SELF [200] Allergies As of Date: 08/28/2018 (No Known Allergies) Date Reviewed: 08/28/2018 Reviewed by: Dorothy Sepulveda Jr. - Fully Assessed Reason for Visit: New Patient [172] Urinary Retention [228] Primary Visit Diagnosis:Urinary retention [R33.9] Order(s):UA DIP, URINE (POC) [[id number]] Order #: [id number]. #:[id number] Prescriptions as of 08/28/2018 Sig: ONDANSETRON HCL 8 MG TABLET Take 1 tablet by mouth every * ACYCLOVIR 400 MG TABLET Take 1 tablet by mouth twice * TAMSULOSIN 0.4 MG CAPSULE Take 1 capsule by mouth once * CATHETER 14 FR Insert 1 Each into the urethr* LEVOFLOXACIN 500 MG TABLET Take 1 tablet by mouth once d* Problem List As Of Date 08/28/2018 Noted Resolved [...] Constipation [K59.00] INVALID FOR*08/20/2018 Priority: I More... Disposition: Return if symptoms worsen or fail to improve. Follow-up and Disposition History Recorded Encounter Status:Closed by DOROTHY SEPULVEDA MD on 08/28/18 [place] MANUAL DIFF Collected: 08/25/2018 Status: F Source: [facility] 1:16 PM [facility] ORDERABLE. REPOSITORY TYPE CODE TESTS RESULT OUT OF REFERENCE UNITS RANGE LAB WLYM % [place] Lymp% 23 LAB WBLAST 0 % High [place] Blast 77 LAB WRBCM [place] RBC Slight Morph Result Comment: Polychromasia Anisocytosis 1+ Ovalocytes LAB WPLTE [place] Platelet Platelet Est estimate decreased Performed By: #### WMANDF, WAGCBC #### [facility] [address] [place] [address] [place] ABS GR + CBC Collected: 08/25/2018 Status: F Source: [place] 1:16 PM [facility] REPOSITORY TYPE CODE TESTS RESULT OUT OF REFERENCE UNITS RANGE LAB WWBC 3.70-11.00 k/uL [place] WBC 10.58 LAB WRBC 3.90-5.20 m/uL Low [place] RBC 3.25 LAB WHGB 11.5-15.5 g/dL Low [place] Hemoglobin 10.2 LAB WHCT 36.0-46.0 % Low [place] Hematocrit 31.0 LAB WMCV 80.0-100.0 fL [place] MCV 95.4 LAB WMCH 26.0-34.0 pg [place] MCH 31.4 LAB WMCHC 30.5-36.0 g/dL [place] MCHC 32.9 LAB WRDW 11.5-15.0 % [place] High RDW 17.4 LAB WPLT 150-400 k/uL Low [place] Platelet Cnt 19 Result Comment: Called to and read back by: Joshua Knapp's Office 08/25/18 Lis Duque Correct time called 1450 LAB WMPV 9.0-12.7 fL [place] MPV 10.5 Result Comment: Test performed at: [facility] [place] [facility], [address] [place] [address]. LAB ABGRAN 1.45-7.50 k/uL Absol Low Gran Count 0.00 LAB ABSNUC <0.01 k/uL Absolute nRBC PRELIM WBC 10.99 Performed By: #### WMANDF, WAGCBC #### [facility] [address] [place], [place] [address] CNCO Observed: 08/25/2018 Status: COMPLETED Source: [place] 12:00 AM [facility] REPOSITORY Letter Text August 25, 2018 Tari Black [address] [facility] [address] Dear Ms. Black, The nurses and staff of [id number] unit at [facility] hope this letter finds you feeling well and progressing in your recovery. It was an honor for us to provide your nursing care. We know that placing our Patients First and maintaining a culture of continuous improvement, each and every day, are essential to the success of our organization. We want to hear from you. If you have any comments, questions or concerns about your hospital stay, please feel free to contact me, Camilla Lyn [phone] or e-mail [email or web address]. Additionally, you will receive a survey in the mail asking you to rate the care you received while in the hospital. Please take the time to complete and send back the survey. I personally review all the results and would appreciate your feedback. Please consider completing this survey for each individual visit. Thank you in advance for your participation and thank you for choosing the [facility] for your healthcare needs. Sincerely, Camilla Lyn Nurse Performance Management Consultant G[facility] Leukemia Unit CNPN Observed: 08/25/2018 Status: COMPLETED Source: [place] 12:00 AM [facility] REPOSITORY Telephone (FISH) TARI BLACK ([id number]) 1945 F Date Time Provider Department 08/25/18 STEPHANE KNAPP During your visit today, we recorded the following information about you: Emma Campoverde LPN, LEONARDO 08/25/2018 2:53 PM Signed Patient?s identity has been confirmed by name and birthdate: Yes Call received from April Richey at 2:50 PM to report an urgent value for Platelets with a result of 19. Dr. Knapp was notified of the result at 3:00PM. LEONARDO Yan DO 08/25/2018 3:01 PM Signed No transfusion indicated. We will be rechecking CBC for possible transfusion on . DO Jordana Bray Psr 08/25/2018 5:01 PM Signed Left detailed message on secured voicemail as indicated below. Allergies As of Date: 08/25/2018 (No Known Allergies) Date Reviewed: 08/20/2018 Reviewed by: Lesli Hook - Fully Assessed Reason for Visit: urgent results [Other] Prescriptions as of 08/25/2018 Sig: PROMETHAZINE 25 MG [...] Take 1 tablet by mouth every * Problem List As Of Date 08/25/2018 Noted Resolved [...] Constipation [K59.00] INVALID FOR*08/20/2018 Priority: I More... Encounter Status:Closed by EMMA CAMPOVERDE on 08/25/18 PROGRESS Observed: 08/22/2018 Status: COMPLETED Source: [place] 3:23 PM [facility] REPOSITORY HNO ID: [id number] Author: Samra Berkowitz (Sw) Service: (none) Author Type: Electricity Trader Type: Progress Notes Filed: 08/22/2018 3:24 PM Note Text: Social Work Problem Referral Note INFORMATION/REFERRAL : Tari Black 73 year old female was referred by physician - Dr. Knapp to [facility] for the following reason(s): financial assistance - meals, parking, etc. PERSONS INTERVIEWED: family - Name: Darron and physician - Dr. Knapp INTERVENTION: Phone Contact, Team Meeting and Information AND Referral Service Co-ordination Affect/Mood: The patient is noted as patient not present IDENTIFIED PROBLEMS/NEEDS: Financial Intervention/Referral to be provided:Arrangements made for continuity of care IMPRESSION/PLAN: TRUE spoke with patient's family member Darron and obtained household income information. TRUE spoke with patient's doctor regarding financial needs for [employer]. TRUE provided completed application to pharmacy to submit to [employer] F/U APPOINTMENT: YESENIA Browne Observed: 08/22/2018 Status: COMPLETED Source: [place] 12:00 AM [facility] REPOSITORY Social Work (FISH) BLACKTARI TODD ([id number]) 1945 F Date Time Provider Department 08/22/18 SAMRA BERKOWITZ (SW) During your visit today, we recorded the following information about you: YESENIA Christopher 08/22/2018 3:24 PM Signed Social Work Problem Referral Note INFORMATION/REFERRAL : Tari Black 73 year old female was referred by physician - Dr. Knapp to [facility] for the following reason(s): financial assistance - meals, parking, etc. PERSONS INTERVIEWED: family - Name: Darron and physician - Dr. Knapp INTERVENTION: Phone Contact, Team Meeting and Information AND Referral Service Co-ordination Affect/Mood: The patient is noted as patient not present IDENTIFIED PROBLEMS/NEEDS: Financial Intervention/Referral to be provided:Arrangements made for continuity of care IMPRESSION/PLAN: SW spoke with patient's family member Darron and obtained household income information. SW spoke with patient's doctor regarding financial needs for [place]. SW provided completed application to pharmacy to submit to [employer] F/U APPOINTMENT: PRYESENIA Gallardo Allergies As of Date: 08/22/2018 (No Known Allergies) Date Reviewed: 08/20/2018 Reviewed by: Lesli Hook - Fully Assessed Reason for Visit: Social Work Services [507] Prescriptions as of 08/22/2018 Sig: PROMETHAZINE 25 MG [...] Take 1 tablet by mouth every * Problem List As Of Date 08/22/2018 Noted Resolved [...] Constipation [K59.00] INVALID FOR*08/20/2018 Priority: I More... Encounter Status:Closed by SAMRA BERKOWITZ on 08/22/18 [place] CBC Collected: 08/20/2018 Status: F Source: [place] 4:20 PM [facility] REPOSITORY TYPE CODE TESTS RESULT OUT OF REFERENCE UNITS RANGE LAB WWBC 3.70-11.00 k/uL [place] WBC 9.47 LAB WRBC 3.90-5.20 m/uL Low [place] RBC 3.19 LAB WHGB 11.5-15.5 g/dL Low [place] Hemoglobin 10.0 LAB WHCT 36.0-46.0 % Low [place] Hematocrit 30.2 LAB WMCV 80.0-100.0 fL [place] MCV 94.7 LAB WMCH 26.0-34.0 pg [place] MCH 31.3 LAB WMCHC 30.5-36.0 g/dL [place] MCHC 33.1 LAB WRDW 11.5-15.0 % [place] High RDW 17.4 LAB WPLT 150-400 k/uL Low [place] Platelet Cnt 24 Result Comment: Result checked and verified LAB WMPV 9.0-12.7 fL [place] MPV 11.4 Result Comment: Test performed at: [facility] [place] [facility], [address] [place] [address] Rd[address] [place] [address]. PROGRESS Observed: 08/20/2018 Status: COMPLETED Source: [place] 3:22 PM [facility] REPOSITORY HNO ID: [id number] Author: Stephane Knapp Service: (none) Author Type: Physician Type: Progress Notes Filed: 08/21/2018 1:04 PM Note Text: [facility]. HPI: Patient is a 73-year-old female with a past medical history significant for hypertension who was seen by her PCP for increasing fatigue and headache. CBC evidently revealed pancytopenia with 68% blasts on peripheral smear. [facility]. Per recent hospital discharge Principal Problem: Acute leukemia (HCC) Overview: Tari Black is a 73 year old female with PMH of HTN and arthritis being admitted due to concern for acute [...] Vidaza locally. Appointment scheduled for 08/[address] [place] [address] Knapp. ? Active Problems: Pancytopenia (HCC) Overview: Secondary to acute leukemia - Transfuse LR + IR blood products for Hgb <8; Plt <10 or active bleeding - No transfusions today 08/19/2018 ? 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 - CT A/P: no e/o perianal abscess. - Start sitz baths PRN - Continue PRN Oxy IR - Continue topical Lidocaine PRN - Continue bowel regimen -->improving, 08/18. ? HTN (hypertension) Overview: - Hold home Lisinopril w/ soft BPs, c/o intermittent dizziness ? Electrolyte imbalance risk Overview: - Replete K, Mg per protocol - Reg diet ? Urinary retention Overview: Urinary retention noted on 08/15, possibly r/t constipation vs rectal pain - Strict I AND O' s - Continue bowel regimen -Discontinue angel catheter 08/18 - Bladder Scan on 08/19 with >900 cc urine retained; Straight Cath; Urology consulted, appreciate assistance - Urine culture; UA ordered - Flomax started (daily) 08/19 ? Hospital discharge follow-up Overview: - Appointment scheduled in [place] with Dr. Knapp for 08/20. - Follow up with Urology requested; Patient will get phone call to verify date and time; F/u with PCP int med (Dr Avalos) at [facility] on Saturday at 3PM - Home care consult for straight cath (Supplies per CM) BONE MARROW ASPIRATE, TOUCH PREPARATION, CLOT SECTION, CORE BIOPSY AND PERIPHERAL BLOOD (A-C): - ?ACUTE MYELOID LEUKEMIA, SEE COMMENT. COMMENT: Further subclassification requires correlation with clinical presentation and with pending molecular and cytogenetic studies. 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 Family hasn't yet filled prescription for levofloxacin. She's had no fever. However she said she did feel rather poorly today. No shaking chills. Appetite is doing fair. Her hospitalization was complicated by urinary retention. This is been symptomatic for several weeks prior to her presentation. She's had to straight catheter this morning. She is using a fresh dural catheter each time she does. No dysuria or gross hematuria. She's not had any unusual bleeding but is bruising rather easily. PHYSICAL EXAM: Vitals: Blood pressure 136/77, pulse 88, temperature 37.2 ?C (98.9 ?F), temperature source Oral, height 165.1 cm (5' 5), weight 98.9 kg (218 lb). Fatigued-appearing and in no acute distress. EYES: Sclerae are anicteric bilaterally. NECK: Supple. LYMPHATIC: There is no palpable cervical, supraclavicular adenopathy. RESPIRATORY: Inspiratory breath sounds are of normal intensity in all delgado. No rales, wheezes or rhonchi. CARDIOVASCULAR: Rhythm is regular. Normal intensity S1/S2. There is no gallop or murmur. ABDOMEN: The abdomen is nondistended. No organomegaly. No tenderness. Extremities: No swelling or edema. SKIN: No jaundice or rash. No petechiae. Few ecchymoses from recent venipuncture on the forearms. NEUROLOGIC: scholarship counselor II-XII are grossly intact. 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 She did not want to undergo induction chemotherapy which I think was a very good decision on her part. We discussed the role of Vidaza and management of AML especially in elderly patients and I pointed out some of the trials guiding our decisions. She is a good candidate for treatment. She has good social support although she will be commuting quite a distance fairly often to undergo therapy and assess/received transfusional support. She understands that her transfusion need will likely increase in frequency especially during the first several months of treatment. She also understands that the goal of therapy is likely prolongation without cure. She also understands the treatment would be indefinitely as long she is tolerating it well and it is leading to clinical benefit, i.e. reduction in transfusion requirement for prevention of progression leukemia. -I discussed the rationale, logistics, potential risks (including ), benefits and alternatives, as well as the personnel involved in the administration of azacitadine. I answered her questions in detail and she verbalized understanding and agreed with the recommended therapy. Please see the electronic consent document for details of doses and schedule. Plan: -CBC/possible transfusion twice weekly. -Begin Vidaza next week. -Bone marrow biopsy after 4-6 months of therapy. -Referral to gynecology for assessment urinary retention. Total crgh-od-mams time was >60 minutes with greater than 45 minutes spent discussing the issues outlined above and/or coordinating care. Stephane Knapp DO CNOVSP Observed: 08/20/2018 Status: COMPLETED Source: [place] 3:00 PM [facility] REPOSITORY Visit (SP) Office (FISH) TARI BLACK ([id number]) 1945 F Date Time Provider Department 08/20/18 3:00 PM STEPHANE KNAPP During your visit today, we recorded the following information about you: Temperature Pulse Blood pressure Weight 98.9 degrees 88/minute 136/77 98.9 kg Height 1.651 m Stephane Knapp DO 08/21/2018 1:04 PM Signed Patient referred following hospital discharge for [facility] for AML. HPI: Patient is a 73-year-old female with a past medical history significant for hypertension who was seen by her PCP for increasing fatigue and headache. CBC evidently revealed pancytopenia with 68% blasts on peripheral smear. Patient was admitted directly to [facility]. Per recent hospital discharge Principal Problem: Acute leukemia (HCC) Overview: Tari Black is a 73 year old female with PMH of HTN and arthritis being admitted due to concern for acute [...] Vidaza locally. Appointment scheduled for 08/[address] [place] [address] Knapp. ? Active Problems: Pancytopenia (HCC) Overview: Secondary to acute leukemia - Transfuse LR + IR blood products for Hgb <8; Plt <10 or active bleeding - No transfusions today 08/19/2018 ? 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 - CT A/P: no e/o perianal abscess. - Start sitz baths PRN - Continue PRN Oxy IR - Continue topical Lidocaine PRN - Continue bowel regimen -->improving, 08/18. ? HTN (hypertension) Overview: - Hold home Lisinopril w/ soft BPs, c/o intermittent dizziness ? Electrolyte imbalance risk Overview: - Replete K, Mg per protocol - Reg diet ? Urinary retention Overview: Urinary retention noted on 08/15, possibly r/t constipation vs rectal pain - Strict I AND O' s - Continue bowel regimen -Discontinue angel catheter 08/18 - Bladder Scan on 08/19 with >900 cc urine retained; Straight Cath; Urology consulted, appreciate assistance - Urine culture; UA ordered - Flomax started (daily) 08/19 ? Hospital discharge follow-up Overview: - Appointment scheduled in [place] with Dr. Knapp for 08/20. - Follow up with Urology requested; Patient will get phone call to verify date and time; F/u with PCP int med (Dr Avalos) at [facility] on Saturday at 3PM - Home care consult for straight cath (Supplies per CM) BONE MARROW ASPIRATE, TOUCH PREPARATION, CLOT SECTION, CORE BIOPSY AND PERIPHERAL BLOOD (A-C): - ?ACUTE MYELOID LEUKEMIA, SEE COMMENT. COMMENT: Further subclassification requires correlation with clinical presentation and with pending molecular and cytogenetic studies. 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 Family hasn't yet filled prescription for levofloxacin. She's had no fever. However she said she did feel rather poorly today. No shaking chills. Appetite is doing fair. Her hospitalization was complicated by urinary retention. This is been symptomatic for several weeks prior to her presentation. She's had to straight catheter this morning. She is using a fresh dural catheter each time she does. No dysuria or gross hematuria. She's not had any unusual bleeding but is bruising rather easily. PHYSICAL EXAM: Vitals: Blood pressure 136/77, pulse 88, temperature 37.2 ?C (98.9 ?F), temperature source Oral, height 165.1 cm (5' 5), weight 98.9 kg (218 lb). Fatigued-appearing and in no acute distress. EYES: Sclerae are anicteric bilaterally. NECK: Supple. LYMPHATIC: There is no palpable cervical, supraclavicular adenopathy. RESPIRATORY: Inspiratory breath sounds are of normal intensity in all delgado. No rales, wheezes or rhonchi. CARDIOVASCULAR: Rhythm is regular. Normal intensity S1/S2. There is no gallop or murmur. ABDOMEN: The abdomen is nondistended. No organomegaly. No tenderness. Extremities: No swelling or edema. SKIN: No jaundice or rash. No petechiae. Few ecchymoses from recent venipuncture on the forearms. NEUROLOGIC: scholarship counselor II-XII are grossly intact. 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 She did not want to undergo induction chemotherapy which I think was a very good decision on her part. We discussed the role of Vidaza and management of AML especially in elderly patients and I pointed out some of the trials guiding our decisions. She is a good candidate for treatment. She has good social support although she will be commuting quite a distance fairly often to undergo therapy and assess/received transfusional support. She understands that her transfusion need will likely increase in frequency especially during the first several months of treatment. She also understands that the goal of therapy is likely prolongation without cure. She also understands the treatment would be indefinitely as long she is tolerating it well and it is leading to clinical benefit, i.e. reduction in transfusion requirement for prevention of progression leukemia. -I discussed the rationale, logistics, potential risks (including ), benefits and alternatives, as well as the personnel involved in the administration of azacitadine. I answered her questions in detail and she verbalized understanding and agreed with the recommended therapy. Please see the electronic consent document for details of doses and schedule. Plan: -CBC/possible transfusion twice weekly. -Begin Vidaza next week. -Bone marrow biopsy after 4-6 months of therapy. -Referral to gynecology for assessment urinary retention. Total yugw-ta-uzsl time was >60 minutes with greater than 45 minutes spent discussing the issues outlined above and/or coordinating care. 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 FOR NAUSEADisp: 30 tabletRfl: 5 CATARINO CBC [SQWCB] Order #: [id number] FUTURE Follow-up and Disposition History Recorded Prescriptions as of 08/20/2018 Sig: ACYCLOVIR 400 MG [...] Take 1 tablet by mouth every * Problem List As Of Date 08/20/2018 Noted Resolved [...] Constipation [K59.00] INVALID FOR*08/20/2018 Priority: I More... Encounter Status:Closed by STEPHANE KNAPP DO on 08/21/18 CNDS Observed: 08/19/2018 Status: COMPLETED Source: [place] 7:03 [facility] REPOSITORY HNO ID: [id number] Author: Moe Eden Service: Hematology/Oncology Author Type: Physician Type: Discharge Summaries Filed: 09/02/2018 11:12 AM Note Text: DISCHARGE SUMMARY PATIENT NAME: Tari Black ADMISSION DATE: 08/14/2018 DISCHARGE DATE: 08/19/2018 ATTENDING PHYSICIAN: Dr Eden Code Status: Not on file Highest Readmission Risk Score: 20 The 30 day readmissions risk score is derived from an internally validated risk model which evaluates patient level characteristics, utilization history, medication orders and lab results up until the day of discharge. Patients with a score of 40 or above are considered highest risk for readmission. Specific patient level drivers will be listed at the bottom of the summary. REASON FOR HOSPITALIZATION: Acute Leukemia DIAGNOSIS: AML OPERATIONS DURING HOSPITALIZATION: None PROCEDURES DURING HOSPITALIZATION: BMBX CXR EKG CT brain HOSPITAL COURSE: Principal Problem: Acute leukemia (HCC) Overview: Tari Black is a 73 year old female with PMH of HTN and arthritis being admitted due to concern for acute [...] Vidaza locally. Appointment scheduled for 08/[address] [place] [address] Knapp. 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 - CT A/P: no e/o perianal abscess. - Start sitz baths PRN - Continue PRN Oxy IR - Continue topical Lidocaine PRN - Continue bowel regimen -->improving, 08/18. HTN (hypertension) Overview: - Hold home Lisinopril w/ soft BPs, c/o intermittent dizziness Electrolyte imbalance risk Overview: - Replete K, Mg per protocol - Reg diet Urinary retention Overview: Urinary retention noted on 08/15, possibly r/t constipation vs rectal pain - Strict I AND O' s - Continue bowel regimen -Discontinue angel catheter 08/18 - Bladder Scan on 08/19 with >900 cc urine retained; Straight Cath; Urology consulted, appreciate assistance - Urine culture; UA ordered - Flomax started (daily) 08/19 Hospital discharge follow-up Overview: - Appointment scheduled in [place] with Dr. Knapp for 08/20. - Follow up with Urology requested; Patient will get phone call to verify date and time; F/u with PCP int med (Dr Avalos) at [facility] on Saturday at 3PM - Home care consult for straight cath (Supplies per CM) Resolved Problems: Headache Overview: - Resolved. - CT brain 08/14- Negative for acute findings - PRN oxy Nausea Overview: ?secondary to acute leukemia - Zofran PRN available - resolved Constipation Overview: -likely exacerbated by opioid use -Senna BID, Colace BID, Miralax daily -continue Lactulose PRN -resolved CONSULTING TEAMS DURING HOSPITALIZATION: Colorectal PATIENT CONDITION AT DISCHARGE: Stable DISCHARGE DISPOSITION: Home with Home Health Care INFORMATION PROVIDED TO PATIENT: Discharge instructions DIET: Resume pre-hospital diet ACTIVITY: Resume pre-hospital activity WOUND/SURGICAL SITE CARE: None ALLERGIES No Known Allergies DISCHARGE MEDICATION: Discharge Medication List as of 08/19/2018 5:31 PM START taking these medications acyclovir (ZOVIRAX) 400 mg tablet Take 1 tablet by mouth twice daily. Normal, Disp-60 tablet, R-0 tamsulosin ER (FLOMAX) 0.4 mg cap Take 1 capsule by mouth once daily. Normal, Disp-14 capsule, R-0, Long-term Catheter (SELF-CATHETER, FEMALE) 14 Fr misc Insert 1 Each into the urethra as needed (5x daily as needed for urinary retention). Print RX, Disp-200 Each, R-0 oxyCODONE IR (ROXICODONE) 5 mg immediate release tablet Take 1 tablet by mouth every 6 hours as needed for Pain for up to 5 days. Print RX, Disp-10 tablet, R-0 Dx: 1. Rectal pain CONTINUE these medications which have CHANGED levoFLOXacin (LEVAQUIN) 500 mg tablet Take 1 tablet by mouth once daily. Take until directed to stop. Normal, Disp-30 tablet, R-0 ondansetron (ZOFRAN) 4 mg tablet Take 1 tablet by mouth every 6 hours as needed. FOR NAUSEA Normal, Disp-30 tablet, R-0 FUTURE APPOINTMENTS: See schedule for follow up appointments The patient's risk for 30-day readmission is determined using the following contributing factors: Pt variables contributing to increased readmission risk: 12 Most Recent BUN Result 10.4 First Resulted Calcium During Admission 1 Insurance - Self Pay 1 Discharge Disposition - Home 1 History of Anemia SIGNATURE: Harini Cassidy APRN.CNP PAGER/CONTACT #: [phone] DATE: August 20, 2018 TIME: 8:32 AM potential risks of hospital discharge and parameters to return reviewed with patient in detail. URINALYSIS Collected: 08/19/2018 Status: F Source: [place] 6:35 PM [facility] REPOSITORY TYPE CODE TESTS RESULT OUT OF RANGE REFERENCE UNITS LAB UC Yellow Color Yellow LAB [facility] Clear Clarity Abnormal Cloudy Alert LAB UGLUC Negative mg/dL Glucose, Urine Negative LAB UBIL Negative Bilirubin, Urine Negative LAB UKET Negative Ketones, Urine Negative LAB USPG 1.005-1.030 Specific [place], Ur 1.014 LAB UHGB Negative Abnormal Hemoglobin/Blood, 1+ Alert Ur LAB UPH 4.5-8.0 pH 7.0 LAB UPROT Negative mg/dL Protein, Urine Negative LAB UUROB Normal Abnormal Urobilinogen Elevated Alert LAB UNITR Negative Nitrites Negative LAB ULKEST Negative Leukest Negative LAB UCOM Comments SEE COMMENT Result Comment: Microscopic Examination Performed LAB UWBC 0-5 /HPF WBC 0-5 LAB URBC 0-3 /HPF RBC 0-3 LAB UCAST 0 /LPF Abnormal Alert Cast SEE COMMENT Result Comment: 1-3 Hyaline Cast LAB UEPI /HPF Epithelial SEE Cells COMMENT Result Comment: Few Squamous Epithelial Cells LAB UMCOM Urine SEE Carloz Comment COMMENT Result Comment: Result rechecked. Performed By: #### UA #### [facility] link bird [address] [place], [place] [address] Observed: 08/19/2018 Status: F Source: [place] URINE CULTURE 6:35 PM [facility] REPOSITORY Sp. Request/Comment: - Specimen received in preservative Culture Result - No growth (<1,000 CFU/ml) Performed By: #### URCUL #### [facility] link bird [address] [place], [place] [address] PLAN OF CARE Observed: 08/19/2018 Status: COMPLETED Source: [place] 3:47 PM [facility] REPOSITORY HNO ID: [id number] Author: Cristina Kurtz (Rec Therapist) Service: (none) Author Type: (none) Type: Plan of Care Filed: 08/19/2018 3:51 PM Note Text: PHARMACY BEDSIDE DELIVERY SERVICE Patient Name: Tair Black The marked outpatient medications were Filled at: [facility] and delivered to the patient's bedside to patient Medication List START taking these medications acyclovir 400 mg tablet Commonly known as: ZOVIRAX Take 1 tablet by mouth twice daily. Delivered Catheter 14 Fr Misc Commonly known as: SELF-CATHETER, FEMALE Insert 1 Each into the urethra as needed (5x daily as needed for urinary retention). levoFLOXacin 500 mg tablet Commonly known as: LevaQUIN Take 1 tablet by mouth once daily. Take until directed to stop. Didn't receive rx for this medication ondansetron 4 mg tablet Commonly known as: ZOFRAN Take 1 tablet by mouth every 6 hours as needed. FOR NAUSEA Didn't receive rx for this medication oxyCODONE IR 5 mg immediate release tablet Commonly known as: ROXICODONE Take 1 tablet by mouth every 6 hours as needed for Pain for up to 5 days. Delivered tamsulosin ER 0.4 mg Cap Commonly known as: FLOMAX Take 1 capsule by mouth once daily. Delivered Cristina Kurtz (Rec Therapist) PAGER: [phone] August 19, 2018 3:47 PM PLAN OF CARE Observed: 08/19/2018 Status: COMPLETED Source: [place] 3:23 PM [facility] REPOSITORY HNO ID: [id number] Author: Jez (Iglesia) Ata Service: Urology Author Type: Resident Type: Plan of Care Filed: 08/19/2018 3:26 PM Note Text: Notified by primary team that they would like to discharge patient today and have her be seen as outpatient for urinary retention. She was counseled on ISC v indwelling angel by primary and patient desires to perform ISC. - will arrange o/p urology follow up (requested on epic) - please have her call urology appt scheduling [phone], if she has not heard back about appointment request - send urine culture to r/o UTI as source of retention - minimize anticholinergics, narcotics - aggressive bowel regimen to treat constipation Martín Berumen MD [id number] NURSING PROG Observed: 08/19/2018 Status: COMPLETED Source: [place] 2:28 PM [facility] REPOSITORY HNO ID: [id number] Author: Aggie (Rn) MADELAINE Madrid Service: (none) Author Type: Registered Nurse Type: Nursing Progress Note Filed: 08/19/2018 7:12 PM Note Text: Nursing Progress Note Patient Name: Tari Black Patient Location: / Daily Note: [id number]: Pt resting in bed on assessment. Pt up to bathroom to urinate. Abdomen more distended today than yesterday. Pt voiding frequently but does not feel as though she is emptying bladder. Bladder scan completed, >914cc. WINDOW DRAPER, Harini notified and orders for straight cath being placed. 1030: Fluids D/C'd. Straight cath with 825cc output. Pt stated she felt much better and pressure was gone. 1245: At bedside for atbx. Discussed with family learning how to straight cath pt, gave material for them to review. 1400: Working with Naturopathic Oncology Provider, Harini Wilburn NP for pt D/C 9595-9720: Reviewed D/c papers with pt and family. Answered questions and reviewed medications. Bedside pharm delivered medications. Gave verbal instructions while demonstrating to pt family how to straight cath pt for urine retention. Family asked questions and verbalized understanding. Home health appt scheduled for tomorrow. UA/UC collected and sent to lab 1700: Pt discharge home. This note was completed by: Aggie Madrid RN SOCIAL WORK Observed: 08/19/2018 Status: COMPLETED Source: [place] 2:05 PM [facility] REPOSITORY HNO ID: [id number] Author: Ruba Winters Service: Social Work Author Type: Electricity Trader Type: Social Work Filed: 08/19/2018 2:09 PM Note Text: SOCIAL WORK FOLLOW UP NOTE: [facility] Date of service:08/19/2018 Tari Black is being seen for a follow up social work visit. Today's visit includes: daughters TOPICS ADDRESSED: Coping/support. SW met with patient daughters to provide support and education regarding caregiver role at home. Daughters had numerous questions. SW suggested they speak with rn and nursing assistants. SW to remain available as needed. PLAN: Continue follow up as needed and Provide emotional support to patient/family F/U APPOINTMENT: YESENIA Rivera CASE MANAGEM Observed: 08/19/2018 Status: COMPLETED Source: [place] 1:59 PM [facility] REPOSITORY HNO ID: [id number] Author: Shavon LewRn) MADELAINE Rodriguez Service: Case Management Author Type: Registered Nurse Type: Care Mgt Progress Note Filed: 08/19/2018 3:50 PM Note Text: CARE MANAGEMENT DISCHARGE NOTE SERVICE DATE: 08/19/2018 SERVICE TIME: 1:59 PM LOS: 5 days FREEDOM OF CHOICE GIVEN: Yes CM spoke to Tari gustavo LOTT Financial Disclosure Provided The patient and/or family has been given the Provider List: Yes Preference: [facility], [facility], [facility], [facility], [facility] manager french met with patient at bedside. Explained role of church supervisor and discharge planning. Pt family at bedside. Pt was open to [facility] at discharge for more self-cath teaching, and clinical RN José Miguel to help do teaching prior to discharge. Pt will discharge to home address, CM to start referral. CM contacted [facility] for self-cath supplies. CM faxed over script and H AND P and face sheet to Oriana Awanruiz at [facility] and spoke on phone, stated they can help with supplies, and CM told clinical RN to send a few days supply home with pt, as takes a few days for [facility] to send to patient home. ADDENDUM: 3:49pm [facility]HC at discharge will be [facility] and SOC will be for tomorrow 08/20. CM to send discharge summary via [facility]. CM updated GLUE MACHINE OPERATOR, clinical RN and gave pt information sheet for reference. Family to transport. SIGNATURE: Shavon Rodriguez RN PATIENT NAME: Tari Black DATE: August 19, 2018 TIME: 1:59 PM PAGER/CONTACT #: [phone] PLAN OF CARE Observed: 08/19/2018 Status: COMPLETED Source: [place] 1:54 PM [facility] REPOSITORY HNO ID: [id number] Author: Cristina Kurtz ([place]) Service: (none) Author Type: (none) Type: Plan of Care Filed: 08/19/2018 1:54 PM Note Text: Pharmacy Discharge Medication Service: This patient has elected to receive their discharge prescriptions through the [facility] Bedside Prescription Delivery program. The prescriptions are currently being processed. A follow-up note will be entered once the prescriptions have been filled and delivered to the patient. Please contact me with any questions or updates to the patient's discharge medications. Cristina Kurtz ([place]) DCT Contact Info: [phone] PLAN OF CARE Observed: 08/19/2018 Status: COMPLETED Source: [place] 1:53 PM [facility] REPOSITORY HNO ID: [id number] Author: Cristina Kurtz ([place]) Service: (none) Author Type: (none) Type: Plan of Care Filed: 08/19/2018 1:53 PM Note Text: DATA OPERATIONS LEADER BEDSIDE DELIVERY SURVEY 1. Patient to use [facility] Bedside Delivery - YES 2. If fax, patient would like us to fax prescriptions to Pharmacy of choice a. Pharmacy: b. Location: c. Phone: 3. Insurance card on file - N/A 4. Credit card for payment - N/A PROGRESS Observed: 08/19/2018 Status: COMPLETED Source: [place] 7:26 AM [facility] REPOSITORY HNO ID: [id number] Author: Harini Cassidy Service: Hematology/Oncology Author Type: Nurse Practitioner Type: Progress Notes Filed: 08/19/2018 1:52 PM Note Text: ONCOLOGY LEUKEMIA PROGRESS NOTE SERVICE DATE: 08/19/2018 SERVICE TIME: 829 Subjective INTERIM HISTORY - Afebrile; VSS - Persistent urinary retention- Urology consulted - Nurse teaching straight Cath; Will f/u with urology outpatient - Anticipating discharge today REVIEW OF SYSTEMS GENERAL: No fever or chills. HEENT: No headache, nose bleed, mouth pain or sore throat. RESPIRATORY: No cough or shortness of breath. CARDIOVASCULAR: No chest pain, palpitations or leg swelling. GI: Eating, drinking and taking pills adequately; no difficulty swallowing : + urinary retention MUSCULOSKELTAL: No pain. SKIN: No rash or itching. VENOUS ACCESS: Peripheral. No concerns. Objective PHYSICAL EXAM VITALS: Temp (24hrs), Av.8 ?C (98.2 ?F), Min:36.5 ?C (97.7 ?F), Max:36.9 ?C (98.4 ?F) BP 126/59 Pulse 83 Temp 36.9 ?C (98.5 ?F) (Oral) Resp 18 Ht 167.5 cm (5' 5.95) Wt 101.5 kg (223 lb 11.2 oz) SpO2 97% BMI 36.17 kg/m? INTAKE AND OUTPUT Intake/Output Summary (Last 24 hours) at 08/19/18 1352 Last data filed at 08/19/18 1300 Gross per 24 hour Intake 1690 ml Output 3277 ml Net -1587 ml General: Alert, NAD HEENT: Anicteric sclera. No oral lesions or erythema. Heart/CV: RRR, No murmurs/rubs/gallops. Lungs/Resp/Chest: ?Lungs CTAB, no wheezing, rhonchi, or crackles. Abd: ?Soft, non tender, non distended. Bowel sounds present. Extremities: no LE edema, no cyanosis. Skin: No rashes appreciated. Neuro/Psych: ?Follows commands appropriately. Affect appropriate for setting and situation. Line Site: PIV site without erythema, tenderness or drainage. MEDICATIONS Current hospital medications: tamsulosin ER 0.4 mg cap(s) (FLOMAX) 0.4 mg ORAL DAILY bacitracin-polymyxin B 500-10,000 unit/gram (POLYSPORIN) TOPICAL TID polyethylene glycol 3350 17 g packet (MIRALAX, GLYCOLAX) 17 g ORAL DAILY PRN melatonin 3 mg tab(s) 3 mg ORAL AT BEDTIME lidocaine 2 % (XYLOCAINE) MUCOUS MEMBRANE TID PRN docusate sodium 100 mg cap(s) (COLACE) 100 mg ORAL BID senna 8.6 mg tab(s) (SENOKOT) 8.6 mg ORAL BID piperacillin-tazobactam 3.375 g in dextrose (iso-osmotic) 50 mL (ZOSYN) 3.375 g INTRAVENOUS q 6 H oxyCODONE IR 5-10 mg tab(s) (ROXICODONE) 5-10 mg ORAL q 4 H PRN iv contrast (radiology procedure) INTRAVENOUS DIRECTED PRN allopurinol 300 mg tab(s) (ZYLOPRIM) 300 mg ORAL DAILY acyclovir 400 mg tab(s) (ZOVIRAX) 400 mg ORAL BID potassium chloride iv piggyback 20 mEq/100 mL 20 mEq INTRAVENOUS PRN potassium chloride ER 40-60 mEq tab(s) (K-DUR, KLOR-CON) 40- 60 mEq ORAL DAILY PRN magnesium sulfate in sterile water 4 g iv piggyback 4 g INTRAVENOUS PRN salt and soda 10 mL oral liquid 10 mL ORAL QID nystatin 5 mL CUP (MYCOSTATIN) 5 mL ORAL QID ohvjeryuquWCBYY-jqvadb-zwhxogvws 10 mL oral liquid (BMX 1:1:1) 10 mL ORAL q 4 H PRN 0.9% NaCl 3-5 mL 3-5 mL INTRAVENOUS q 12 H acetaminophen 650 mg tab(s) (TYLENOL) 650 mg ORAL q 4 H PRN diphenhydrAMINE 25 mg (BENADRYL) 25 mg ORAL q 6 H PRN ondansetron (PF) 8 mg injection (ZOFRAN) 8 mg INTRAVENOUS q 8 H PRN lactulose 20 g CUP (DUPHALAC, CONSTULOSE) 20 g ORAL BID LABORATORY DATA Recent Labs 08/19/18 0532 08/18/18 0214 08/17/18 0502 WBC 7.23 7.25 8.47 RBC 2.95* 2.51* 2.62* HB 9.2* 7.9* 8.4* HCT 26.7* 23.0* 24.2* PLT 23* 22* 23* MCV 90.5 91.6 92.4 MCH 31.2 31.5 32.1 MCHC 34.5 34.3 34.7 RDWCV 17.6* 17.4* 17.5* MPV 10.2 11.2 11.6 NEUTP 2.0 1.8 3.5 ABSNEUT 0.14* 0.13* 0.30* ABLAST 59.0* 71.4* 63.2* LYMPHP 35.0 26.8 33.3 MONOP 4.0 0.0 0.0 EODINP 0.0 0.0 0.0 BASOP 0.0 0.0 0.0 ABSMONO 0.29 0.00 0.00 ABSEOSIN 0.00 0.00 0.00 ABSBASO 0.00 0.00 0.00 Recent Labs 08/19/18 0532 08/18/1821308/17/18 0502 NA 140 134* 134* K 4.1 4.1 4.4 CHLOR 103 101 99 CO2 26 24 24 CREAT 0.75 0.74 0.81 BUN 12 10 15 GLUC 134* 162* 132* P 3.0 2.4* 3.0 TPROT 6.4 6.1* 6.3 ALB 3.5* 3.2* 3.4* CA 10.0 9.5 9.6 ALKPHOS 67 63 62 TBILI 1.0 1.1 1.5* AST 19 20 22 ALT 20 18 15 URICACID 1.8* 1.8* 2.6 PTSEC 10.9 10.9 11.2 INR 1.0 1.0 1.1 APTT 24.7 26.2 25.9 DATA: Diagnostic tests reviewed for today's visit: Most recent labs and imaging results. Assessment/Plan Active Hospital Problems Diagnosis Date Noted - 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/2018 Priority: A Overview Note: Tari Black is a 73 year old female with PMH of HTN and arthritis being admitted due to concern for acute [...] Vidaza locally. Appointment scheduled for 08/[address] [place] [address] Knapp. - Pancytopenia (HCC) 08/14/2018 Priority: B Overview Note: Secondary to acute leukemia - Transfuse LR + IR blood products for Hgb <8; Plt <10 or active bleeding - No transfusions today 08/19/2018 - Headache Priority: B Overview Note: - Resolved. - CT brain 08/14- Negative for acute findings - PRN oxy - Nausea Priority: C Overview Note: ?secondary to acute leukemia - Zofran PRN available - resolved - Immunodeficiency (HCC) 08/14/2018 Priority: D Overview Note: secondary to acute leukemia - ppx acyclovir - Rectal pain Priority: E Overview Note: Pt reports 3-day course of rectal pain TELECOM COORDINATOR - No visible signs of hemorrhoids, fissure or abnormality - CORS consulted, appreciate assistance. - CT A/P: no e/o perianal abscess. - Start sitz baths PRN - Continue PRN Oxy IR - Continue topical Lidocaine PRN - Continue bowel regimen -->improving, 08/18. - HTN (hypertension) 08/14/2018 Priority: F Overview Note: - Hold home Lisinopril w/ soft BPs, c/o intermittent dizziness - Electrolyte imbalance risk Priority: F Overview Note: - Replete K, Mg per protocol - Reg diet - Urinary retention Priority: H Overview Note: Urinary retention noted on 08/15, possibly r/t constipation vs rectal pain - Strict I AND O' s - Continue bowel regimen -Discontinue angel catheter 08/18 - Bladder Scan on 08/19 with >900 cc urine retained; Straight Cath; Urology consulted, appreciate assistance - Urine culture; UA ordered - Flomax started (daily) 08/19 - Constipation 08/17/2018 Priority: I Overview Note: -likely exacerbated by opioid use -Senna BID, Colace BID, Miralax daily -continue Lactulose PRN -resolved - Hospital discharge follow-up Overview Note: - Appointment scheduled in [place] with Dr. Knapp for 08/20. - Follow up with Urology requested; Patient will get phone call to verify date and time; F/u with PCP int med (Dr Avalos) at [facility] on Saturday at 3PM - Home care consult for straight cath (Supplies per CM) Medication and Non-Pharmacologic VTE Prophylaxis/Anticoagulants 08/14/181514 vte pharmacologic prophylaxis contraindicated ([place]) 08/14/181514 vte non-pharmacologic prophylaxis contraindicated ([place] 08/14/181514 activity - mobilize patient ([place]) SIGNATURE: Harini Cassidy APRN.CNP PATIENT NAME: Tari Black DATE: August 19, 2018 TIME: 7:26 AM PAGER/CONTACT #: [phone] HEMATOLOGY/MEDICAL ONCOLOGY STAFF: TEACHING PHYSICIAN NOTE OF PERSONAL INVOLVEMENT IN CARE I have reviewed the progress note obtained and documented by the MARISSA and I personally participated in the murphy components. I have discussed the case and management of the patient's care with the MARISSA. The following comments revise or confirm relevant murphy components of the MARISSA. IMPRESSION/PLAN: Counts fairly stable. ADAME, consult urology No txf needs. Patient has decided to pursue outpatient AZA in [place] Signed: Moe Eden Pager Number: [phone] Date and Time of Service: 08-19-2018 Authenticated by responsible provider. FIBRINOGEN Collected: 08/19/2018 Status: F Source: [place] 5:32 AM [facility] [place] REPOSITORY TYPE CODE TESTS RESULT OUT OF REFERENCE UNITS RANGE LAB FIBCT 200-400 mg/dL High Fibrinogen 424 Performed By: #### FIBCT, PT, PTT, LD6, CMP, PHOS, URIC, CBCDIF #### [facility] [address] [place], [place] [address] PROTIME Collected: 08/19/2018 Status: F Source: [place] 5:32 AM [facility] REPOSITORY TYPE CODE TESTS RESULT OUT OF RANGE REFERENCE UNITS LAB PSEC 9.7-13.0 sec PT Sec 10.9 LAB INR 0.9-1.3 PT INR 1.0 Result Comment: Vitamin K Antagonist (VKA) Therapeutic Range: INR 2 to 3 (Target INR of 2.5) Note: For patients treated with VKA drugs, such as warfarin, the [place] [employer] Chest Physicians 2012 Guideline recommends [...] Chest 2012, 141:7S-47S Diallo RA, et al. [facility] 2017, 70: 252-289 Performed By: #### FIBCT, PT, PTT, LD6, CMP, PHOS, URIC, CBCDIF #### [facility] [address] [place], [place] [address] APTT Collected: 08/19/2018 Status: F Source: [place] 5:32 [facility] REPOSITORY TYPE CODE TESTS RESULT OUT [...] laboratory APTT reagent in use throughout the [facility]. Performed By: #### FIBCT, PT, PTT, LD6, CMP, PHOS, URIC, CBCDIF #### [facility] [address] [place], [place] [address] LD Collected: 08/19/2018 Status: F Source: [facility] 5:32 AM [facility] REPOSITORY TYPE CODE TESTS RESULT OUT OF RANGE REFERENCE UNITS LAB LD 135-214 U/L High LD 282 Performed By: #### FIBCT, PT, PTT, LD6, CMP, PHOS, URIC, CBCDIF #### [facility] [address] [place], [place] [address] COMP METABOLIC PANEL Collected: 08/19/2018 Status: F Source: [place] 5:32 AM [facility] REPOSITORY TYPE CODE TESTS RESULT OUT OF REFERENCE UNITS RANGE LAB TP 6.3-8.0 g/dL Protein, Total 6.4 LAB ALB 3.9-4.9 g/dL Low Albumin 3.5 LAB CA 8.5-10.2 mg/dL Calcium, Total 10.0 LAB TBIL 0.2-1.3 mg/dL Bilirubin, Total 1.0 LAB ALKP 34-123 U/L Alkaline Phosphatase 67 LAB AST 13-35 U/L AST 19 LAB GLU 74-99 mg/dL Glucose High 134 Result Comment: The [place] Diabetes Association (ADA) provides guidance for cutoff values for fasting glucose and random glucose. The ADA defines fasting as no caloric intake for at least 8 hours. Fas ting plasma glucose results between 100 to 125 [...] Standards of Medical Care in Diabetes 2016, [place] Diabetes Association. Diabetes Care. 2016.39(Suppl 1). LAB BUN 7-21 mg/dL BUN 12 LAB CRET 0.58-0.96 mg/dL Creatinine 0.75 LAB NA 136-144 mmol/L Sodium 140 LAB K 3.7-5.1 mmol/L Potassium 4.1 LAB CL 97-105 mmol/L Chloride 103 LAB CO2 22-30 mmol/L CO2 26 LAB AGAP 9-18 mmol/L Anion Gap 11 LAB ALT 7-38 U/L ALT 20 LAB GFRAA eGFR- Amer. >60 LAB GFRNAA [...] PTT, LD6, CMP, PHOS, URIC, CBCDIF #### [facility] [address] [place] [address] PHOSPHORUS Collected: 08/19/2018 Status: F Source: [place] 5:32 AM [facility] REPOSITORY TYPE CODE TESTS RESULT OUT OF REFERENCE UNITS RANGE LAB PHOS 2.7-4.8 mg/dL Phosphorus 3.0 Performed By: #### FIBCT, PT, PTT, LD6, CMP, PHOS, URIC, CBCDIF #### [facility] [address] [place] [address] URIC ACID Collected: 08/19/2018 Status: F Source: [place] 5:32 AM [facility] REPOSITORY TYPE CODE TESTS RESULT OUT OF RANGE REFERENCE UNITS LAB URIC 2.5-6.6 mg/dL Low Uric Acid 1.8 Performed By: #### FIBCT, PT, PTT, LD6, CMP, PHOS, URIC, CBCDIF #### [place] [address] CBC AND DIFFERENTIAL Collected: 08/19/2018 Status: F Source: [place] 5:32 AM [facility] REPOSITORY TYPE CODE TESTS RESULT OUT OF REFERENCE UNITS RANGE LAB WBC 3.70-11.00 k/uL WBC 7.23 LAB RBC 3.90-5.20 m/uL Low RBC 2.95 LAB HGB 11.5-15.5 g/dL Low Hemoglobin 9.2 LAB HCT 36.0-46.0 % Low Hematocrit 26.7 LAB MCV 80.0-100.0 fL MCV 90.5 LAB MCH 26.0-34.0 pG MCH 31.2 LAB MCHC 30.5-36.0 g/dL MCHC 34.5 LAB RDWCV 11.5-15.0 % RDW-CV High 17.6 LAB PLTCT 150-400 k/uL Low Platelet Count 23 Result Comment: Result checked and verified No clot detected. LAB MPV 9.0-12.7 fL MPV 10.2 LAB ANEUT % Neut% 2.0 LAB AANEUT 1.45-7.50 k/uL Abs Neut 0.14 Low LAB ALYMP % Lymph% 35.0 LAB AALYMP 1.00-4.00 k/uL Abs Lymph 2.53 LAB AMONO % [place]% 4.0 LAB AAMONO <0.87 k/uL Abs [place] 0.29 LAB AEOS % Eosin% 0.0 LAB AAEOS <0.46 k/uL Abs Eosin 0.00 LAB ABASO % Baso% 0.0 LAB AABASO <0.11 k/uL Abs Baso 0.00 LAB ABIMMG k/uL 0.14 ANC(includeSEG+BAND ) LAB ABLAST 0 % Blast% 59.0 High LAB ANIIMI Anisocytosis Present LAB OVAIMI Ovalocytes Few LAB POLIMI Polychromasia Slight LAB PLTEST Platelet Estimate Platelet estimate decreased LAB DTYP DTYPE Manual Diff Performed By: #### FIBCT, PT, PTT, LD6, CMP, PHOS, URIC, CBCDIF #### [facility] [address] [place], [place] [address] NURSING PROG Observed: 08/18/2018 Status: COMPLETED Source: [place] 5:28 PM [facility] REPOSITORY HNO ID: [id number] Author: Aggie (Rn) MADELAINE Madrid Service: (none) Author Type: Registered Nurse Type: Nursing Progress Note Filed: 08/18/2018 5:32 PM Note Text: Nursing Progress Note Patient Name: Tari Black Patient Location: [place] [address] Daily Note: 0916: Pt resting in bed on assessment. VSS. Afebrile. Complaint of slight headache, declined pain meds. Pt stated no rectal pain. Denied nausea, SOB, dizziness. 1352: 1 unit of RBC's up and transfusing. VSS. Afebrile 1609: RBC's completed. VSS. Afebrile. 1730: Angel removed, pt tolerated well This note was completed by: Aggie Madrid RN NUTRITION Observed: 08/18/2018 Status: COMPLETED Source: [place] 4:46 PM [facility] [place] REPOSITORY HNO ID: [id number] Author: Mechelle Paredes Service: Nutrition Therapy Author Type: Registered Dietitian Type: Nutrition Filed: 08/18/2018 4:49 PM Note Text: NUTRITION THERAPY PROGRESS NOTE SERVICE DATE: 08/18/2018 SERVICE TIME: 1100 RECOMMENDED DIAGNOSIS: NO MALNUTRITION IDENTIFIED per Registered Dietitian on 08/15 NUTRITION CARE PLAN Intervention: Continue Regular diet Continue oral supplements : Boost Glucose Control and Ensure Enlive supplements Monitor oral intakes Monitor and Evaluation: Goal: Meet >75% of estimated needs Monitor fluid/electrolyte balance Monitor labs, I/Os, vital signs, weight Discharge Nutrition Recommendations: Diet: Regular Supplements: patient's preference Interval History: possible d/c tomorrow Nutritional Intake: Nutritional Intake Prior to Admission: >75% estimated energy needs over the past 4 day(s) Current Diet Order DIET REGULAR Peripheral 08/17/18 0920 Assessment Left Forearm 22 Gauge (Active) Indwelling Urinary Catheter 08/15/18 1600 Angel 16 Fr (Active) Height: 167.5 cm (5' 5.95) (verified by Piper HERNANDEZ) Admission Weight: 97.1 kg (214 lb 1.1 oz) (verified by Piper HERNANDEZ) Current Weight: 101.7 kg (224 lb 4.8 oz) Body mass index is 36.26 kg/m?. class 2 obesity Recent Labs 08/18/18 0214 GLUC 162* BUN 10 CREAT 0.74 NA 134* K 4.1 CHLOR 101 CO2 24 ALB 3.2* P 2.4* HB 7.9* HCT 23.0* WBC 7.25 ALLERGIES No Known Allergies Current Facility-Administered Medications: bacitracin-polymyxin B 500-10,000 unit/gram (POLYSPORIN) TOPICAL TID polyethylene glycol 3350 17 g packet (MIRALAX, GLYCOLAX) 17 g ORAL DAILY PRN melatonin 3 mg tab(s) 3 mg ORAL AT BEDTIME lidocaine 2 % (XYLOCAINE) MUCOUS MEMBRANE TID PRN docusate sodium 100 mg cap(s) (COLACE) 100 mg ORAL BID senna 8.6 mg tab(s) (SENOKOT) 8.6 mg ORAL BID piperacillin-tazobactam 3.375 g in dextrose (iso-osmotic) 50 mL (ZOSYN) 3.375 g INTRAVENOUS q 6 H oxyCODONE IR 5-10 mg tab(s) (ROXICODONE) 5-10 mg ORAL q 4 H PRN iv contrast (radiology procedure) INTRAVENOUS DIRECTED PRN allopurinol 300 mg tab(s) (ZYLOPRIM) 300 mg ORAL DAILY acyclovir 400 mg tab(s) (ZOVIRAX) 400 mg ORAL BID potassium chloride iv piggyback 20 mEq/100 mL 20 mEq INTRAVENOUS PRN Or potassium chloride ER 40-60 mEq tab(s) (K-DUR, KLOR-CON) 40- 60 mEq ORAL DAILY PRN magnesium sulfate in sterile water 4 g iv piggyback 4 g INTRAVENOUS PRN salt and soda 10 mL oral liquid 10 mL ORAL QID nystatin 5 mL CUP (MYCOSTATIN) 5 mL ORAL QID yrzghmxlicNUOLA-kswupy-jtbziveuv 10 mL oral liquid (BMX 1:1:1) 10 mL ORAL q 4 H PRN 0.9% NaCl 3-5 mL 3-5 mL INTRAVENOUS q 12 H acetaminophen 650 mg tab(s) (TYLENOL) 650 mg ORAL q 4 H PRN diphenhydrAMINE 25 mg (BENADRYL) 25 mg ORAL q 6 H PRN NaCl 0.9% iv infusion 100 mL/hr INTRAVENOUS CONTINUOUS ondansetron (PF) 8 mg injection (ZOFRAN) 8 mg INTRAVENOUS q 8 H PRN lactulose 20 g CUP (DUPHALAC, CONSTULOSE) 20 g ORAL BID Date 08/17/18 1500 - 08/18/18 0659 08/18/18 0700 - 08/19/18 0659 Shift 8613-1029 5008-5271 24 Hour Total 3647-1425 2558-9538 0907-0977 24 Hour Total I N T A K E PO 480 1125 1125 PO 480 885 885 Supplements (mL) 240 240 IV 950 1040 2340 50 50 NS 0.9% 747 617 5890 Zosyn IV 50 50 150 50 50 Blood Products 301 301 PRBC Intake (mL) 300 300 Packed Red Blood Cells Number of Units 1 1 Shift Total 950 1040 2820 1476 1476 O U T P U T Urine 800 1800 2950 2375 2375 Void (ml) 1150 1150 Tube Output ( Indwelling Urinary Catheter 08/15/18 1600 Angel 16 Fr) 687 066 1446 2375 2375 # of BMs Number of BMs 1 x 1 x Shift Total 800 1800 2950 2375 2375 Weight (kg) 100.7 100.7 100.7 101.7 101.7 101.7 101.7 Vitamin and Mineral Labs in the past year:No results for input(s): CHROMIUM, COPPER, MANGANESE, SELENIUM, VITAMINA, VITB1, VITB2, VITB6, B12, METHYLMAL, VITD25, VITAMINE, VITAK, ZINC, TIBC, FE, KAL in the last 8784 hours. MNT Billing Type: Re-assess/15 min 3 units SIGNATURE: Mechelle Paredes, MS RD LD [facility] PATIENT NAME: Tari Black DATE: August 18, 2018 TIME: 4:47 PM PAGER: [phone] SOCIAL WORK Observed: 08/18/2018 Status: COMPLETED Source: [place] 1:28 PM [facility] REPOSITORY HNO ID: [id number] Author: Ruba Winters Service: Social Work Author Type: Electricity Trader Type: Social Work Filed: 08/18/2018 1:30 PM Note Text: SOCIAL WORK FOLLOW UP NOTE: [facility] Date of service: 08/18/2018 Tari Black is being seen for a follow up social work visit. Today's visit includes: patient and numerous family members. TOPICS ADDRESSED: Coping/support. SW completed follow up and patient indicated that she may discharge on following day and completing treatment in [facility]. No other questions or concerns at this time. PLAN: Continue follow up as needed and Provide emotional support to patient/family F/U APPOINTMENT: YESENIA Rivera PROGRESS Observed: 08/18/2018 Status: COMPLETED Source: [place] 8:21 AM [facility] REPOSITORY HNO ID: [id number] Author: Isabella Navarrete) Jeferson Service: Hematology/Oncology Author Type: Nurse Practitioner Type: Progress Notes Filed: 08/18/2018 4:32 PM Note Text: ONCOLOGY LEUKEMIA PROGRESS NOTE SERVICE DATE: 08/18/2018 SERVICE TIME: 8:21 AM Subjective INTERIM HISTORY - Feeling well, rectal pain improving - Tentatively planning for discharge tomorrow, leaning towards receiving treatment in [place]. REVIEW OF SYSTEMS GENERAL: No fever or chills. HEENT: No headache, nose bleed, mouth pain or sore throat. RESPIRATORY: No cough or shortness of breath. CARDIOVASCULAR: No chest pain, palpitations or leg swelling. GI: Eating, drinking and taking pills adequately; no difficulty swallowing, N/V/D/C. MUSCULOSKELTAL: No pain. SKIN: No rash or itching. VENOUS ACCESS: Peripheral. No concerns. Objective PHYSICAL EXAM VITALS: Temp (24hrs), Av.1 ?C (98.8 ?F), Min:36.5 ?C (97.7 ?F), Max:37.3 ?C (99.2 ?F) BP 130/65 Pulse 78 Temp 36.5 ?C (97.7 ?F) (Oral) Resp 18 Ht 167.5 cm (5' 5.95) Wt 101.7 kg (224 lb 4.8 oz) SpO2 96% BMI 36.26 kg/m? INTAKE AND OUTPUT Intake/Output Summary (Last 24 hours) at 08/18/18 0821 Last data filed at 08/18/18 0810 Gross per 24 hour Intake 2820 ml Output 3350 ml Net -530 ml General: Alert, NAD HEENT: Anicteric sclera. No oral lesions or erythema. Heart/CV: RRR, No murmurs/rubs/gallops. Lungs/Resp/Chest: ?Lungs CTAB, no wheezing, rhonchi, or crackles. Abd: ?Soft, non tender, non distended. Bowel sounds present. Extremities: no LE edema, no cyanosis. Skin: No rashes appreciated. Neuro/Psych: ?Follows commands appropriately. Affect appropriate for setting and situation. Line Site: PIV site without erythema, tenderness or drainage. MEDICATIONS Current hospital medications: bacitracin-polymyxin B 500-10,000 unit/gram (POLYSPORIN) TOPICAL TID polyethylene glycol 3350 17 g packet (MIRALAX, GLYCOLAX) 17 g ORAL DAILY PRN melatonin 3 mg tab(s) 3 mg ORAL AT BEDTIME lidocaine 2 % (XYLOCAINE) MUCOUS MEMBRANE TID PRN docusate sodium 100 mg cap(s) (COLACE) 100 mg ORAL BID senna 8.6 mg tab(s) (SENOKOT) 8.6 mg ORAL BID piperacillin-tazobactam 3.375 g in dextrose (iso-osmotic) 50 mL (ZOSYN) 3.375 g INTRAVENOUS q 6 H oxyCODONE IR 5-10 mg tab(s) (ROXICODONE) 5-10 mg ORAL q 4 H PRN iv contrast (radiology procedure) INTRAVENOUS DIRECTED PRN allopurinol 300 mg tab(s) (ZYLOPRIM) 300 mg ORAL DAILY acyclovir 400 mg tab(s) (ZOVIRAX) 400 mg ORAL BID potassium chloride iv piggyback 20 mEq/100 mL 20 mEq INTRAVENOUS PRN potassium chloride ER 40-60 mEq tab(s) (K-DUR, KLOR-CON) 40- 60 mEq ORAL DAILY PRN magnesium sulfate in sterile water 4 g iv piggyback 4 g INTRAVENOUS PRN salt and soda 10 mL oral liquid 10 mL ORAL QID nystatin 5 mL CUP (MYCOSTATIN) 5 mL ORAL QID glhazgysgzFLQDH-allsgn-oobhiryap 10 mL oral liquid (BMX 1:1:1) 10 mL ORAL q 4 H PRN 0.9% NaCl 3-5 mL 3-5 mL INTRAVENOUS q 12 H acetaminophen 650 mg tab(s) (TYLENOL) 650 mg ORAL q 4 H PRN diphenhydrAMINE 25 mg (BENADRYL) 25 mg ORAL q 6 H PRN NaCl 0.9% iv infusion 100 mL/hr INTRAVENOUS CONTINUOUS ondansetron (PF) 8 mg injection (ZOFRAN) 8 mg INTRAVENOUS q 8 H PRN lactulose 20 g CUP (DUPHALAC, CONSTULOSE) 20 g ORAL BID LABORATORY DATA Recent Labs 08/18/1821308/17/18 0502 08/16/18 0508 WBC 7.25 8.47 7.27 RBC 2.51* 2.62* 2.53* HB 7.9* 8.4* 7.9* HCT 23.0* 24.2* 23.2* PLT 22* 23* 23* MCV 91.6 92.4 91.7 MCH 31.5 32.1 31.2 MCHC 34.3 34.7 34.1 RDWCV 17.4* 17.5* 18.9* MPV 11.2 11.6 11.2 NEUTP 1.8 3.5 7.0 ABSNEUT 0.13* 0.30* 0.51* ABLAST 71.4* 63.2* 68.7* LYMPHP 26.8 33.3 24.3 MONOP 0.0 0.0 0.0 EODINP 0.0 0.0 0.0 BASOP 0.0 0.0 0.0 ABSMONO 0.00 0.00 0.00 ABSEOSIN 0.00 0.00 0.00 ABSBASO 0.00 0.00 0.00 Recent Labs 08/18/1821308/17/18 0502 08/16/18 0508 NA 134* 134* 137 K 4.1 4.4 4.2 CHLOR 101 99 101 CO2 24 24 25 CREAT 0.74 0.81 0.73 BUN 10 15 12 GLUC 162* 132* 124* P 2.4* 3.0 2.7 TPROT 6.1* 6.3 6.6 ALB 3.2* 3.4* 3.6* CA 9.5 9.6 10.0 ALKPHOS 63 62 64 TBILI 1.1 1.5* 1.4* AST 20 22 14 ALT 18 15 11 URICACID 1.8* 2.6 3.4 PTSEC 10.9 11.2 10.7 INR 1.0 1.1 1.0 APTT 26.2 25.9 25.4 CULTURES IMAGING PROCEDURES DATA: Diagnostic tests reviewed for today's visit: Most recent labs and imaging results. Assessment/Plan Active Hospital Problems Diagnosis Date Noted - 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/2018 Priority: A Overview Note: aTri Black is a 73 year old female with PMH of HTN and arthritis being admitted due to concern for acute leukemia after going to her PCP for upset stomach, headaches, and fatigue (CBC showing pancytopenia). - 68% peripheral blasts on CBC, 08/16. - 08/15 peripheral flow: AML - CXR No acute findings, EKG NSR - mIVF, allopurinol, TLS labs daily - BMBx 08/15 -->path in process. - Discussion of treatment options today, 08/17 --> Vidaza vs induction vs trial. Pt AND family contemplating, but leaning towards Vidaza locally. Appointment scheduled for 08/[address] [place] [address] Knapp. - Line placement, echo -->pending treatment decision. - Pancytopenia (HCC) 08/14/2018 Priority: B Overview Note: Secondary to acute leukemia - Transfuse LR + IR blood products for Hgb <8; Plt <10 or active bleeding - Received PRBC transfusion today, 08/18. - Headache Priority: B Overview Note: - Resolved. 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 - CT A/P: no e/o perianal abscess. - Start sitz baths PRN - Continue PRN Oxy IR - Continue topical Lidocaine PRN - Continue bowel regimen -->improving, 08/18. - HTN (hypertension) 08/14/2018 Priority: F Overview Note: - Hold home Lisinopril w/ soft BPs, c/o intermittent dizziness - Electrolyte imbalance risk Priority: F Overview Note: - Replete K, Mg per protocol - Reg diet - continue mIVF NS @ 100cc/hr - Urinary retention Priority: H Overview Note: Urinary retention noted on 08/15, possibly r/t constipation vs rectal pain - Strict I AND O' s - Continue bowel regimen -Discontinue angel catheter. - Constipation 08/17/2018 Priority: I Overview Note: -likely exacerbated by opioid use -last BM 08/13 -Senna BID, Colace BID, Miralax daily -continue Lactulose PRN - Hospital discharge follow-up Overview Note: - Pending diagnosis, treatment plan - Following Dr Hoang - PT/OT: eval AND treat - Appointment scheduled in [place] with Dr. Knapp for 08/20. Medication and Non-Pharmacologic VTE Prophylaxis/Anticoagulants 08/14/18 151 vte pharmacologic prophylaxis contraindicated (wi,oh) 08/14/18 1515 vte non-pharmacologic prophylaxis contraindicated (wi,oh) 08/14/18 1515 activity - mobilize patient (wi,oh) VTE Prophylaxis: Contraindicated due to thrombocytopenia. SIGNATURE: Isabella Govea APRN.GLUE MACHINE OPERATOR PATIENT NAME: Tari Black DATE: August 18, 2018 TIME: 8:21 AM PAGER/CONTACT #: [phone] HEMATOLOGY/MEDICAL ONCOLOGY STAFF: TEACHING PHYSICIAN NOTE OF PERSONAL INVOLVEMENT IN CARE I have reviewed the progress note obtained and documented by the MARISSA and I personally participated in the murphy components. I have discussed the case and management of the patient's care with the MARISSA. The following comments revise or confirm relevant murphy components of the MARISSA. IMPRESSION/PLAN: Await BM Bx/asp results. Periphery with 70% blasts. Txf pRBC for anemia. Afebrile on zosyn. Signed: Moe Eden Pager Number: [phone] Date and Time of Service: Date: 08-18-18 Authenticated by responsible provider. APTT Collected: 08/18/2018 Status: F Source: [place] 2:14 AM [facility] [place] [place] REPOSITORY TYPE CODE TESTS RESULT OUT OF [...] laboratory APTT reagent in use throughout the [facility]. Sample checked for a clot. Performed By: #### PTT, FIBCT, PT, LD6, CMP, PHOS, URIC, CBCDIF #### [facility] [address] [place], [place] [address] FIBRINOGEN Collected: 08/18/2018 Status: F Source: [place] 2:14 AM [facility] REPOSITORY TYPE CODE TESTS RESULT OUT OF REFERENCE UNITS RANGE LAB FIBCT 200-400 mg/dL High Fibrinogen 462 Result Comment: Result rechecked. Sample checked for a clot. Performed By: #### PTT, FIBCT, PT, LD6, CMP, PHOS, URIC, CBCDIF #### [facility] [address] [place], [place] [address] PROTIME Collected: 08/18/2018 Status: F Source: [place] 2:14 AM [facility] REPOSITORY TYPE CODE TESTS RESULT OUT OF RANGE REFERENCE UNITS LAB PSEC 9.7-13.0 sec PT Sec 10.9 Result Comment: Sample checked for a clot. LAB INR 0.9-1.3 PT INR 1.0 Result Comment: Vitamin K Antagonist (VKA) Therapeutic Range: INR 2 to 3 (Target INR of 2.5) Note: For patients treated with VKA drugs, such as warfarin, the [place] [employer] of Chest Physicians 2012 Guideline recommends [...] Chest 2012, 141:7S-47S Diallo RA et al. [facility] 2017, 70: 252-289 Sample checked for a clot. Performed By: #### PTT, FIBCT, PT, LD6, CMP, PHOS, URIC, CBCDIF #### [facility] [address] [place], [place] [address] LD Collected: 08/18/2018 Status: F Source: [facility] 2:14 AM [facility] REPOSITORY TYPE CODE TESTS RESULT OUT OF RANGE REFERENCE UNITS LAB LD 135-214 U/L High LD 303 Performed By: #### PTT, FIBCT, PT, LD6, CMP, PHOS, URIC, CBCDIF #### [facility] [address] [place], [place] [address] COMP METABOLIC PANEL Collected: 08/18/2018 Status: F Source: [place] 2:14 AM [facility] REPOSITORY TYPE CODE TESTS RESULT OUT OF REFERENCE UNITS RANGE LAB TP 6.3-8.0 g/dL Low Protein, Total 6.1 LAB ALB 3.9-4.9 g/dL Low Albumin 3.2 LAB CA 8.5-10.2 mg/dL Calcium, Total 9.5 LAB TBIL 0.2-1.3 mg/dL Bilirubin, Total 1.1 LAB ALKP 34-123 U/L Alkaline Phosphatase 63 LAB AST 13-35 U/L AST 20 LAB GLU 74-99 mg/dL Glucose High 162 Result Comment: The [place] Diabetes Association (ADA) provides guidance for cutoff values for fasting glucose and random glucose. The ADA defines fasting as no caloric intake for at least 8 hours. Fas ting plasma glucose results between 100 to 125 [...] Standards of Medical Care in Diabetes 2016, [place] Diabetes Association. Diabetes Care. 2016.39(Suppl 1). LAB BUN 7-21 mg/dL BUN 10 LAB CRET 0.58-0.96 mg/dL Creatinine 0.74 LAB NA 136-144 mmol/L Sodium Low 134 LAB K 3.7-5.1 mmol/L Potassium 4.1 [...] PT, LD6, CMP, PHOS, URIC, CBCDIF #### [facility] [address] [place], [place] [address] PHOSPHORUS Collected: 08/18/2018 Status: F Source: [place] 2:14 AM [facility] REPOSITORY TYPE CODE TESTS RESULT OUT OF REFERENCE UNITS RANGE LAB PHOS 2.7-4.8 mg/dL Low Phosphorus 2.4 Performed By: #### PTT, FIBCT, PT, LD6, CMP, PHOS, URIC, CBCDIF #### [place] [address] URIC ACID Collected: 08/18/2018 Status: F Source: [place] 2:14 AM [facility] REPOSITORY TYPE CODE TESTS RESULT OUT OF RANGE REFERENCE UNITS LAB URIC 2.5-6.6 mg/dL Low Uric Acid 1.8 Performed By: #### PTT, FIBCT, PT, LD6, CMP, PHOS, URIC, CBCDIF #### [facility] [address] [place], [place] [address] CBC AND DIFFERENTIAL Collected: 08/18/2018 Status: F Source: [place] 2:14 [facility] REPOSITORY TYPE CODE TESTS RESULT OUT OF REFERENCE UNITS RANGE LAB WBC 3.70-11.00 k/uL WBC 7.25 LAB RBC 3.90-5.20 m/uL Low RBC 2.51 LAB HGB 11.5-15.5 g/dL Low Hemoglobin 7.9 LAB HCT 36.0-46.0 % Low Hematocrit 23.0 LAB MCV 80.0-100.0 fL MCV 91.6 LAB MCH 26.0-34.0 pG MCH 31.5 LAB MCHC 30.5-36.0 g/dL MCHC 34.3 LAB RDWCV 11.5-15.0 % RDW-CV High 17.4 LAB PLTCT 150-400 k/uL Low Platelet Count 22 Result Comment: Result checked and verified No clot detected. LAB MPV 9.0-12.7 fL MPV 11.2 LAB ANEUT % Neut% 1.8 LAB AANEUT 1.45-7.50 k/uL Abs Neut 0.13 Low LAB ALYMP % Lymph% 26.8 LAB AALYMP 1.00-4.00 k/uL Abs Lymph 1.94 LAB AMONO % [place]% 0.0 LAB AAMONO <0.87 k/uL Abs [place] 0.00 LAB AEOS % Eosin% 0.0 LAB AAEOS <0.46 k/uL Abs Eosin 0.00 LAB ABASO % Baso% 0.0 LAB AABASO <0.11 k/uL Abs Baso 0.00 LAB NRBC 0 /100 WBC NRBCs 1 High LAB ABLAST 0 % Blast% 71.4 High LAB ANIIMI Anisocytosis Present LAB POLIMI Polychromasia Slight LAB PLTEST Platelet Estimate Platelet estimate decreased LAB DTYP DTYPE Manual Diff Performed By: #### PTT, FIBCT, PT, LD6, CMP, PHOS, URIC, CBCDIF #### [facility] [address] [place] [id number] TYPE AND SCREEN Collected: 08/18/2018 Status: F Source: [place] 2:13 AM [facility] REPOSITORY TYPE CODE TESTS RESULT OUT OF REFERENCE UNITS RANGE LAB %ABR O ABO/RH(D) NEGATIVE LAB % Antibody NEG Screen Performed By: #### TSCR #### [facility] [address] [place] [address] NURSING PROG Observed: 08/17/2018 Status: COMPLETED Source: [place] 11:07 AM [facility] REPOSITORY HNO ID: [id number] Author: Melanie (Rn) MADELAINE Zamarripa Service: (none) Author Type: Registered Nurse Type: Nursing Progress Note Filed: 08/17/2018 2:54 PM Note Text: Nursing Progress Note Patient Name: Tari Black Patient Location: [facility] [place] 006/ Daily Note: 0745: Pt off the floor to radiology for CXR. 0822: Pt resting in bed at this time. Assessment completed per flowsheet - pt c/o 4/10 rectal pain, 10mg of oxycodone administered. Pt also c/o dizziness - Jeannie MO NP aware. Pt accidentally pulled IV out in radiology - will place new IV for IVF. Will continue to monitor. POC reviewed - pt verbalized understanding. Will continue to monitor. 0920: New 22G placed in L FA - NS infusing per JAN. 1100: Small blood clot noted in angel catheter tubing, no other s/s active bleeding noted. Jeannie Villatoro NP notified. No new orders at this time. 1205: Pt assisted with sitz bath and states relief. Keisha care/catheter care completed. Will continue to monitor. This note was completed by: Melanie Zamarripa RN XR CHEST 2V FRONTAL/LAT Observed: 08/17/2018 Status: F Source: [place] 8:01 AM [facility] REPOSITORY * * *Final Report* * * DATE OF EXAM: Aug 17 2018 8:01AM SARAH [id number] - XR CHEST 2V FRONTAL/LAT / PROCEDURE REASON: Fever of unknown origin * * * * Physician Interpretation * * * * EXAMINATION: CHEST RADIOGRAPH (2 VIEW FRONTAL and LATERAL) CLINICAL HISTORY: Fever of unknown origin, MQ: XC2_5 Comparison: 08/14/2018 RESULT: Lines, tubes, and devices: None. Lungs and pleura: Apical regions are incompletely included. Evaluation for tiny pneumothoraces would be difficult. There has been development of tiny pleural effusions. Minimal atelectatic changes have developed at the bases. Superimposed minimal inflammatory changes cannot be excluded. Cardiomediastinal silhouette: Heart normal. Thoracic aorta is mildly tortuous. Other: . IMPRESSION: As above Flight Superintendent: YOSEF Transcribe Date/Time: Aug 17 2018 1:12P Dictated by : DINORAH MANCIA MD This examination was interpreted and the report reviewed and electronically signed by: DINORAH MANCIA MD on Aug 17 2018 1:13PM EST [id number] PROGRESS Observed: 08/17/2018 Status: COMPLETED Source: [place] 7:10 AM [facility] [place] REPOSITORY HNO ID: [id number] Author: Horace Hoang Service: Hematology/Oncology Author Type: Physician Type: Progress Notes Filed: 08/18/2018 5:47 AM Note Text: ONCOLOGY LEUKEMIA PROGRESS NOTE SERVICE DATE: 08/17/2018 SERVICE TIME: 7:11 AM Subjective INTERIM HISTORY Febrile, Tmax 38 @2218, other VSS BCs in process, started on Zosyn Awaiting BMBx results Discussion w/ pt, family re: treatment options Constipation persists, continue bowel regimen REVIEW OF SYSTEMS GENERAL: ?+ fever, no chills. Intermittent dizziness. HEENT: + intermittent?headaches; No?nose bleed, mouth pain or sore throat. RESPIRATORY: No cough or shortness of breath. CARDIOVASCULAR: No chest pain, palpitations or leg swelling. GI: Eating, drinking and taking pills adequately; no difficulty swallowing, abdominal discomfort, blood in stools, black stools or diarrhea; + rectal pain -improving. : No discomfort with voiding or gross blood in urine. MUSCULOSKELTAL: No pain. SKIN: No rash or itching. VENOUS?ACCESS: Peripheral. No concerns. Objective PHYSICAL EXAM VITALS: Temp (24hrs), Av.2 ?C (99 ?F), Min:36.6 ?C (97.9 ?F), Max:38 ?C (100.4 ?F) BP 127/84 Pulse 94 Temp 37.2 ?C (99 ?F) (Oral) Resp 18 Ht 167.5 cm (5' 5.95) Wt 100.7 kg (222 lb 0.1 oz) SpO2 96% BMI 35.89 kg/m? INTAKE AND OUTPUT Intake/Output Summary (Last 24 hours) at 08/17/18 1602 Last data filed at 08/17/18 1400 Gross per 24 hour Intake 3070 ml Output 675 ml Net 2395 ml GENERAL: ?No acute distress; alert and oriented x 3. HEENT: No mucositis. LUNGS: Clear to auscultation; no wheezing, rhonchi or rales. HEART: Regular rhythm; normal rate; no murmur. ABDOMEN: Bowel sounds present; soft, non-tender and not distended. No external hemorrhoids or obvious abscess. EXTREMITIES: No edema. SKIN: No rash. VENOUS ACCESS: No erythema, tenderness or drainage. MEDICATIONS Current hospital medications: bacitracin-polymyxin B 500-10,000 unit/gram (POLYSPORIN) TOPICAL TID lidocaine 2 % (XYLOCAINE) MUCOUS MEMBRANE TID PRN docusate sodium 100 mg cap(s) (COLACE) 100 mg ORAL BID senna 8.6 mg tab(s) (SENOKOT) 8.6 mg ORAL BID piperacillin-tazobactam 3.375 g in dextrose (iso-osmotic) 50 mL (ZOSYN) 3.375 g INTRAVENOUS q 6 H oxyCODONE IR 5-10 mg tab(s) (ROXICODONE) 5-10 mg ORAL q 4 H PRN iv contrast (radiology procedure) INTRAVENOUS DIRECTED PRN allopurinol 300 mg tab(s) (ZYLOPRIM) 300 mg ORAL DAILY acyclovir 400 mg tab(s) (ZOVIRAX) 400 mg ORAL BID potassium chloride iv piggyback 20 mEq/100 mL 20 mEq INTRAVENOUS PRN potassium chloride ER 40-60 mEq tab(s) (K-DUR, KLOR-CON) 40- 60 mEq ORAL DAILY PRN magnesium sulfate in sterile water 4 g iv piggyback 4 g INTRAVENOUS PRN salt and soda 10 mL oral liquid 10 mL ORAL QID nystatin 5 mL CUP (MYCOSTATIN) 5 mL ORAL QID [id number]-[id number] 10 mL oral liquid (BMX 1:1:1) 10 mL ORAL q 4 H PRN 0.9% NaCl 3-5 mL 3-5 mL INTRAVENOUS q 12 H acetaminophen 650 mg tab(s) (TYLENOL) 650 mg ORAL q 4 H PRN diphenhydrAMINE 25 mg (BENADRYL) 25 mg ORAL q 6 H PRN NaCl 0.9% iv infusion 100 mL/hr INTRAVENOUS CONTINUOUS ondansetron (PF) 8 mg injection (ZOFRAN) 8 mg INTRAVENOUS q 8 H PRN lactulose 20 g CUP (DUPHALAC, CONSTULOSE) 20 g ORAL BID LABORATORY DATA Recent Labs 08/17/18 0502 08/16/18 0508 08/16/18 0020 WBC 8.47 7.27 7.23 RBC 2.62* 2.53* 2.40* HB 8.4* 7.9* 7.5* HCT 24.2* 23.2* 22.0* PLT 23* 23* 22* MCV 92.4 91.7 91.7 MCH 32.1 31.2 31.3 MCHC 34.7 34.1 34.1 RDWCV 17.5* 18.9* 18.6* MPV 11.6 11.2 10.8 NEUTP 3.5 7.0 1.8 ABSNEUT 0.30* 0.51* 0.13* ABLAST 63.2* 68.7* 68.4* LYMPHP 33.3 24.3 29.8 MONOP 0.0 0.0 0.0 EODINP 0.0 0.0 0.0 BASOP 0.0 0.0 0.0 ABSMONO 0.00 0.00 0.00 ABSEOSIN 0.00 0.00 0.00 ABSBASO 0.00 0.00 0.00 Recent Labs 08/17/18 0502 08/16/18 0508 08/16/18 0020 NA 134* 137 136 K 4.4 4.2 4.1 CHLOR 99 101 102 CO2 24 25 22 CREAT 0.81 0.73 0.78 BUN 15 12 13 GLUC 132* 124* 130* P 3.0 2.7 2.5* TPROT 6.3 6.6 6.6 ALB 3.4* 3.6* 3.5* CA 9.6 10.0 9.6 ALKPHOS 62 64 62 TBILI 1.5* 1.4* 1.4* AST 22 14 16 ALT 15 11 12 URICACID 2.6 3.4 3.4 PTSEC 11.2 10.7 10.9 INR 1.1 1.0 1.0 APTT 25.9 25.4 24.0 DATA: Diagnostic tests reviewed for today's visit: Most recent labs and imaging results. Assessment/Plan Active Hospital Problems Diagnosis Date Noted - 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/2018 Priority: A Overview Note: Tari Black is a 73 year old female with PMH of HTN and arthritis being admitted due to concern for acute leukemia after going to her PCP for upset stomach, headaches, and fatigue (CBC showing pancytopenia). - 68% peripheral blasts on CBC, 08/16. - 08/15 peripheral flow: AML - CXR No acute findings, EKG NSR - mIVF, allopurinol, TLS labs daily - BMBx 08/15 -->path in process. - Discussion of treatment options today, 08/17 --> Vidaza vs induction vs trial. Pt AND family contemplating. - Line placement, echo -->pending treatment decision. - Pancytopenia (HCC) 08/14/2018 Priority: B Overview Note: Secondary to acute leukemia - Transfuse LR + IR blood products for Hgb <8; Plt <10 or active bleeding - No transfusion needs today, 08/17. 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 - CT A/P: no e/o perianal abscess. - Start sitz baths PRN - Continue PRN Oxy IR - Continue topical Lidocaine PRN - Continue bowel regimen -->improving, 08/17. - HTN (hypertension) 08/14/2018 Priority: F Overview Note: - Hold home Lisinopril w/ soft BPs, c/o intermittent dizziness - Electrolyte imbalance risk Priority: F Overview Note: - Replete K, Mg per protocol - Reg diet - continue mIVF NS @ 100cc/hr - Urinary retention Priority: H Overview Note: Urinary retention noted on 08/15, possibly r/t constipation vs rectal pain - Continue angel xgd - Strict I AND O' s - Continue bowel regimen - Constipation 08/17/2018 Priority: I Overview Note: -likely exacerbated by opioid use -last BM 08/13 -Senna BID, Colace BID, Miralax daily -continue Lactulose PRN - Hospital discharge follow-up Overview Note: - Pending diagnosis, treatment plan - Following Dr Hoang - PT/OT: eval AND treat Medication and Non-Pharmacologic VTE Prophylaxis/Anticoagulants 08/14/18 151 vte pharmacologic prophylaxis contraindicated (fl,oh) 08/14/18 151 vte non-pharmacologic prophylaxis contraindicated (fl,oh) 08/14/18 1515 activity - mobilize patient (fl,oh) VTE Prophylaxis: Contraindicated severe thrombocytopenia SIGNATURE: Sandy Villatoro APRN.CNP PATIENT NAME: Tari Black DATE: August 17, 2018 TIME: 7:10 AM PAGER/CONTACT #: [phone] HEMATOLOGY/MEDICAL ONCOLOGY STAFF: TEACHING PHYSICIAN NOTE OF PERSONAL INVOLVEMENT IN CARE ? I have reviewed the progress note obtained and documented by the licensed independent practitioner and I personally participated in the murphy components. I have discussed the case and management of the patient's care with the licensed independent practitioner. The following comments revise or confirm relevant murphy components of the licensed independent practitioner's note. ? IMPRESSION/PLAN: AML by flow cytometry. Awaiting thre final results of BMBx. The [facility] conducts standard manufacturing quality engineer validation for all diagnosed patients new to the cancer institute and this will also be performed during this admission.? Discussed therapeutic options including 7+3 (with or without HCT), hypomethylating agents versus clinical trial ([employer] study). For clinical trial eligibility, BMBx results required Rectal pain, CT negative, rectal surgery following. She is immunocompromised and will need transfusion support. ? Horace Hoang MD PhD MPH Associate Staff Hematologic Oncology and Blood Disorders Pager [phone] Date of service: 08/17/2018 FIBRINOGEN Collected: 08/17/2018 Status: F Source: [place] 5:02 AM [facility] REPOSITORY TYPE CODE TESTS RESULT OUT OF REFERENCE UNITS RANGE LAB FIBCT 200-400 mg/dL High Fibrinogen 434 Performed By: #### FIBCT, PT, PTT, LD6, CMP, PHOS, URIC, CBCDIF #### [facility] [address] [place] [id number] PROTIME Collected: 08/17/2018 Status: F Source: [place] 5:02 AM [facility] REPOSITORY TYPE CODE TESTS RESULT OUT OF RANGE REFERENCE UNITS LAB PSEC 9.7-13.0 sec PT Sec 11.2 LAB INR 0.9-1.3 PT INR 1.1 Result Comment: Vitamin K Antagonist (VKA) Therapeutic Range: INR 2 to 3 (Target INR of 2.5) Note: For patients treated with VKA drugs, such as warfarin, the [place] College of Chest Physicians 2012 Guideline recommends [...] Chest 2012, 141:7S-47S Diallo RA, et al. [facility] 2017, 70: 252-289 Performed By: #### FIBCT, PT, PTT, LD6, CMP, PHOS, URIC, CBCDIF #### [facility] [address] [place] [id number] APTT Collected: 08/17/2018 Status: F Source: [place] 5:02 AM [facility] REPOSITORY TYPE CODE TESTS RESULT [...] laboratory APTT reagent in use throughout the [facility]. Performed By: #### FIBCT, PT, PTT, LD6, CMP, PHOS, URIC, CBCDIF #### [facility] [address] [place], [place] [address] LD Collected: 08/17/2018 Status: F Source: [facility] 5:02 AM [facility] REPOSITORY TYPE CODE TESTS RESULT OUT OF RANGE REFERENCE UNITS LAB LD 135-214 U/L High LD 293 Performed By: #### FIBCT, PT, PTT, LD6, CMP, PHOS, URIC, CBCDIF #### [facility] [address] [place], [place] [address] COMP METABOLIC PANEL Collected: 08/17/2018 Status: F Source: [place] 5:02 AM [facility] REPOSITORY TYPE CODE TESTS RESULT OUT OF REFERENCE UNITS RANGE LAB TP 6.3-8.0 g/dL Protein, Total 6.3 LAB ALB 3.9-4.9 g/dL Low Albumin 3.4 LAB CA 8.5-10.2 mg/dL Calcium, Total 9.6 LAB TBIL 0.2-1.3 mg/dL Bilirubin, High Total 1.5 LAB ALKP 34-123 U/L Alkaline Phosphatase 62 LAB AST 13-35 U/L AST 22 LAB GLU 74-99 mg/dL Glucose High 132 Result Comment: The [place] Diabetes Association (ADA) provides guidance for cutoff values for fasting glucose and random glucose. The ADA defines fasting as no caloric intake for at least 8 hours. Fas ting plasma glucose results between 100 to 125 [...] Standards of Medical Care in Diabetes 2016, [place] Diabetes Association. Diabetes Care. 2016.39(Suppl 1). LAB BUN 7-21 mg/dL BUN 15 LAB CRET 0.58-0.96 mg/dL Creatinine 0.81 LAB NA 136-144 mmol/L Sodium Low 134 LAB K 3.7-5.1 mmol/L Potassium 4.4 [...] PTT, LD6, CMP, PHOS, URIC, CBCDIF #### [facility] [address] [place] [address] PHOSPHORUS Collected: 08/17/2018 Status: F Source: [place] 5:02 [facility] REPOSITORY TYPE CODE TESTS RESULT OUT OF REFERENCE UNITS RANGE LAB PHOS 2.7-4.8 mg/dL Phosphorus 3.0 Performed By: #### FIBCT, PT, PTT, LD6, CMP, PHOS, URIC, CBCDIF #### [facility] [address] [place] [address] URIC ACID Collected: 08/17/2018 Status: F Source: [place] 5:02 [facility] REPOSITORY TYPE CODE TESTS RESULT OUT OF RANGE REFERENCE UNITS LAB URIC 2.5-6.6 mg/dL Uric Acid 2.6 Performed By: #### FIBCT, PT, PTT, LD6, CMP, PHOS, URIC, CBCDIF #### [facility] [address] [place], [place] [address] CBC AND DIFFERENTIAL Collected: 08/17/2018 Status: F Source: [place] 5:02 [facility] REPOSITORY TYPE CODE TESTS RESULT OUT OF REFERENCE UNITS RANGE LAB WBC 3.70-11.00 k/uL WBC 8.47 LAB RBC 3.90-5.20 m/uL Low RBC 2.62 LAB HGB 11.5-15.5 g/dL Low Hemoglobin 8.4 LAB HCT 36.0-46.0 % Low Hematocrit 24.2 LAB MCV 80.0-100.0 fL MCV 92.4 LAB MCH 26.0-34.0 pG MCH 32.1 LAB MCHC 30.5-36.0 g/dL MCHC 34.7 LAB RDWCV 11.5-15.0 % RDW-CV High 17.5 LAB PLTCT 150-400 k/uL Low Platelet Count 23 Result Comment: Result checked and verified No clot detected. LAB MPV 9.0-12.7 fL MPV 11.6 LAB ANEUT % Neut% 3.5 LAB AANEUT 1.45-7.50 k/uL Abs Neut 0.30 Low LAB ALYMP % Lymph% 33.3 LAB AALYMP 1.00-4.00 k/uL Abs Lymph 2.82 LAB AMONO % [place]% 0.0 LAB AAMONO <0.87 k/uL Abs [place] 0.00 LAB AEOS % Eosin% 0.0 LAB AAEOS <0.46 k/uL Abs Eosin 0.00 LAB ABASO % Baso% 0.0 LAB AABASO <0.11 k/uL Abs Baso 0.00 LAB ABLAST 0 % Blast% 63.2 High LAB ANIIMI Anisocytosis Present LAB OVAIMI Ovalocytes Few LAB POLIMI Polychromasia Slight LAB PLTEST Platelet Estimate Platelet estimate decreased LAB DTYP DTYPE Manual Diff Performed By: #### FIBCT, PT, PTT, LD6, CMP, PHOS, URIC, CBCDIF #### [facility] [address] [place], [place] [address] UA W/CULT IF INDICATED Collected: 08/17/2018 Status: F Source: [place] 4:52 AM [facility] REPOSITORY TYPE CODE TESTS RESULT OUT OF RANGE REFERENCE UNITS LAB UCOL Yellow Color Yellow LAB [facility] Clear Clarity Clear LAB UGLUC Negative mg/dL Glucose, Urine Negative LAB UBIL Negative Bilirubin, Urine Negative LAB UKET Negative Ketones, Urine Negative LAB USPG 1.005-1.030 Specific [place], Ur 1.012 LAB UHGB Negative Abnormal Hemoglobin/Blood, 1+ Alert Ur LAB UPH 4.5-8.0 pH 6.0 LAB UPROT Negative mg/dL Protein, Urine Negative LAB UUROB Normal Urobilinogen Normal LAB UNITR Negative Nitrites Negative LAB ULKEST Negative Leukest Negative LAB UCOM Comments SEE COMMENT Result Comment: Microscopic Examination Performed LAB UMCOM Urine SEE Carloz Comment COMMENT Result Comment: N/A LAB UWBC 0-5 /HPF WBC 0-5 LAB URBC 0-3 /HPF Abnormal Alert RBC 3-5 Performed By: #### UACII #### [facility] [address] [place], [place] [address] NURSING PROG Observed: 08/16/2018 Status: COMPLETED Source: [place] 11:13 PM [facility] REPOSITORY HNO ID: [id number] Author: Kristal (Rn) MADELAINE Flores Service: (none) Author Type: Registered Nurse Type: Nursing Progress Note Filed: 08/16/2018 11:14 PM Note Text: Nursing Progress Note Patient Name: Tari Black Patient Location: [place] [address] Daily Note: 2215: Pt febrile 100.4, all other VSS. Due for FAITH, circulation man notified. Tylenol given. 2230: BC x2 drawn AND sent. Zosyn started. X-ray paged for chest x-ray. This note was completed by: Kristal Flores RN Observed: 08/16/2018 Status: F Source: [place] BLOOD CULTURE 10:43 PM [facility] REPOSITORY Culture Result - No growth 5 days Performed By: #### BLCUL #### [facility] [address] [place], [place] [address] Observed: 08/16/2018 Status: F Source: [place] BLOOD CULTURE 10:43 PM [facility] REPOSITORY Culture Result - No growth 5 days Performed By: #### BLCUL #### [facility] [address] [place], [place] [address] NURSING PROG Observed: 08/16/2018 Status: COMPLETED Source: [place] 12:27 PM [facility] REPOSITORY HNO ID: [id number] Author: Melanie Prieto) MADELAINE Zamarripa Service: (none) Author Type: Registered Nurse Type: Nursing Progress Note Filed: 08/16/2018 12:32 PM Note Text: Nursing Progress Note Patient Name: Tari Black Patient Location: [place] [address] Daily Note: 0730: Pt resting in bed at this time. Assessment completed per flowsheet - pt c/o 8/10 rectal pain. 10mg of oxycodone administered per JAN. Pt denies PARRA, SOB, dizziness, N/V, diarrhea. Pt states last BM was on Saturday - will admin scheduled lactulose. POC reviewed with pt - will transfuse 1u PRBCs today. Pt verbalized understanding. Will continue to monitor. 0930: PRBC transfusion started. AM lisinopril held d/t c/o dizziness, BP 104/52. MAlexandr Villatoro NP notified. 1205: 5mg of oxy administered for c/o 4/10 rectal pain. 1217: PRBC transfusion complete. VSS, no s/s transfusion reaction. This note was completed by: Melanie Zamarripa RN CONSULT PROG Observed: 08/16/2018 Status: COMPLETED Source: [place] 8:50 AM [facility] REPOSITORY HNO ID: [id number] Author: Cristian Black Service: Colorectal Author Type: Resident Type: Consult Progress Note Filed: 08/16/2018 9:09 AM Note Text: . GENERAL SURGERY PROGRESS NOTE Service Date: August 16, 2018 Patient Name: Tari Black Hospital Day: 3 OR DATE: * No surgery found * * No surgery found * Assessment and Plan: Tari Black is a 73 year old female, who was admitted on 08/14/2018 for Pancytopenia (HCC). CORS was consulted for rectal pain. NO CT evidence of perianal abscess or other acute process. Pt continues to have rectal pain. Plan: - no surgical intervention at this point - will perform repeat rectal exam with staff today - management per primary team Will discuss plan with Dr. Hilliard. Cristian Black MD, PhD General Surgery, PGY-1 Pager: [phone]; Date: 08/16/2018 Time: 8:51 AM Patient Active Hospital Problem List: Pancytopenia (HCC) (08/14/2018) Headache () Nausea () Immunodeficiency (HCC) (08/14/2018) HTN (hypertension) (08/14/2018) Electrolyte imbalance risk () Anemia () Thrombocytopenia (HCC) () Rectal pain () Hospital discharge follow-up () Urinary retention () Subjective: Interval Events: No acute events overnight. Pain: controlled. Continues to have rectal pain. Physical Exam: BP 106/51 Pulse 90 Temp 37.3 ?C (99.1 ?F) (Oral) Resp 18 Ht 167.5 cm (5' 5.95) Wt 96.9 kg (213 lb 9.6 oz) SpO2 93% BMI 34.53 kg/m? GENERAL/NEURO: Awake, Alert, NAD HEENT: Normocephalic, Atraumatic CHEST: Unlabored breathing on RA, hemodynamically stable ABDOMEN: Soft, Non-tender, Non-Distended EXTREMITIES: warm, well perfused, no jaundice Labs: CBC, Coags, BMP, Mg, Phos Recent Labs 08/16/18 0508 08/16/18 0020 08/15/18 1225 WBC 7.27 7.23 7.82 HB 7.9* 7.5* 7.4* HCT 23.2* 22.0* 21.5* PLT 23* 22* 25* INR 1.0 1.0 1.0 APTT 25.4 24.0 23.8 NA 137 136 136 K 4.2 4.1 4.3 CHLOR 101 102 102 CO2 25 22 24 BUN 12 13 14 CREAT 0.73 0.78 0.73 GLUC 124* 130* 106* CA 10.0 9.6 9.6 P 2.7 2.5* 2.3* Liver Function, Amylase, AND Lipase Recent Labs 08/16/18 0508 08/16/18 0020 08/15/18 1225 TPROT 6.6 6.6 6.8 ALB 3.6* 3.5* 3.9 ALT 11 12 13 AST 14 16 15 ALKPHOS 64 62 67 TBILI 1.4* 1.4* 1.2 Intake and Output: Date 08/15/18 07 - 08/16/18 0659 08/16/18 0700 - 08/17/18 0659 Shift 3695-5053 7356-5072 1731-0058 24 Hour Total 8411-6172 5209-5096 3562-3773 24 Hour Total I N T A K E PO 320 320 PO 320 320 Supplements (mL) 0 0 IV 596 974 0868 NS 0.9% 535 376 2364 Blood Products 1 1 Packed Red Blood Cells Number of Units 1 1 Other Amount Wasted PRBC 0 mL 0 mL Shift Total 7593 250 6718 O U T P U T Urine 900 1340 2425 4665 Void (ml) 200 200 Straight cath (ml) 700 700 Tube Output ( Indwelling Urinary Catheter 08/15/18 1600 Angel 16 Fr) 1340 2425 3765 # of BMs Number of BMs 0 x 0 x 0 x Shift Total 900 1340 2425 4665 Weight (kg) 96.5 96.5 96.5 96.5 96.9 96.9 96.9 96.9 Current Medications: Current hospital medications: oxyCODONE IR 5-10 mg tab(s) (ROXICODONE) 5-10 mg ORAL q 4 H PRN iv contrast (radiology procedure) INTRAVENOUS DIRECTED PRN enteric contrast (radiology procedure) ORAL DIRECTED PRN lisinopril 20 mg tab(s) (ZESTRIL, PRINIVIL) 20 mg ORAL DAILY allopurinol 300 mg tab(s) (ZYLOPRIM) 300 mg ORAL DAILY acyclovir 400 mg tab(s) (ZOVIRAX) 400 mg ORAL BID potassium chloride iv piggyback 20 mEq/100 mL 20 mEq INTRAVENOUS PRN potassium chloride ER 40-60 mEq tab(s) (K-DUR, KLOR-CON) 40- 60 mEq ORAL DAILY PRN magnesium sulfate in sterile water 4 g iv piggyback 4 g INTRAVENOUS PRN salt and soda 10 mL oral liquid 10 mL ORAL QID nystatin 5 mL CUP (MYCOSTATIN) 5 mL ORAL QID dcmlzlqbpmZSZPT-bsvqfe-pissakmti 10 mL oral liquid (BMX 1:1:1) 10 mL ORAL q 4 H PRN 0.9% NaCl 3-5 mL 3-5 mL INTRAVENOUS q 12 H acetaminophen 650 mg tab(s) (TYLENOL) 650 mg ORAL q 4 H PRN diphenhydrAMINE 25 mg (BENADRYL) 25 mg ORAL q 6 H PRN NaCl 0.9% iv infusion 100 mL/hr INTRAVENOUS CONTINUOUS ondansetron (PF) 8 mg injection (ZOFRAN) 8 mg INTRAVENOUS q 8 H PRN lactulose 20 g CUP (DUPHALAC, CONSTULOSE) 20 g ORAL BID Prior to Admission Medications: No prescriptions on file. PROGRESS Observed: 08/16/2018 Status: COMPLETED Source: [place] 7:59 AM [facility] REPOSITORY O ID: [id number] Author: Sandy Villatoro Service: Hematology/Oncology Author Type: Nurse Practitioner Type: Progress Notes Filed: 08/16/2018 3:37 PM Note Text: ONCOLOGY LEUKEMIA PROGRESS NOTE SERVICE DATE: 08/16/2018 SERVICE TIME: 7:59 AM Subjective INTERIM HISTORY Afebrile, VSS Peripheral flow consistent w/ AML Awaiting BMBx results Rectal pain persists CT A/P: no e/o perianal abscess Continue PRN Oxy, Lido, sitz baths CORS following REVIEW OF SYSTEMS GENERAL: No fever or chills. Intermittent dizziness. HEENT: + intermittent headaches; No nose bleed, mouth pain or sore throat. RESPIRATORY: No cough or shortness of breath. CARDIOVASCULAR: No chest pain, palpitations or leg swelling. GI: Eating, drinking and taking pills adequately; no difficulty swallowing, abdominal discomfort, blood in stools, black stools or diarrhea; + rectal pain -persistent. : No discomfort with voiding or gross blood in urine. MUSCULOSKELTAL: No pain. SKIN: No rash or itching. VENOUS ACCESS: Peripheral. No concerns. Objective PHYSICAL EXAM VITALS: Temp (24hrs), Av ?C (98.6 ?F), Min:36.6 ?C (97.9 ?F), Max:37.5 ?C (99.5 ?F) BP 136/50 Pulse 95 Temp 37.6 ?C (99.6 ?F) (Oral) Resp 18 Ht 167.5 cm (5' 5.95) Wt 96.9 kg (213 lb 9.6 oz) SpO2 96% BMI 34.53 kg/m? INTAKE AND OUTPUT Intake/Output Summary (Last 24 hours) at 08/16/18 1537 Last data filed at 08/16/18 1100 Gross per 24 hour Intake 1548 ml Output 4240 ml Net -2692 ml GENERAL: No acute distress; alert and oriented x 3. HEENT: No mucositis. LUNGS: Clear to auscultation; no wheezing, rhonchi or rales. HEART: Regular rhythm; normal rate; no murmur. ABDOMEN: Bowel sounds present; soft, non-tender and not distended. No external hemorrhoids or obvious abscess. EXTREMITIES: No edema. SKIN: No rash. VENOUS ACCESS: No erythema, tenderness or drainage. MEDICATIONS Current hospital medications: lidocaine 2 % (XYLOCAINE) MUCOUS MEMBRANE TID PRN oxyCODONE IR 5-10 mg tab(s) (ROXICODONE) 5-10 mg ORAL q 4 H PRN iv contrast (radiology procedure) INTRAVENOUS DIRECTED PRN enteric contrast (radiology procedure) ORAL DIRECTED PRN allopurinol 300 mg tab(s) (ZYLOPRIM) 300 mg ORAL DAILY acyclovir 400 mg tab(s) (ZOVIRAX) 400 mg ORAL BID potassium chloride iv piggyback 20 mEq/100 mL 20 mEq INTRAVENOUS PRN potassium chloride ER 40-60 mEq tab(s) (K-DUR, KLOR-CON) 40- 60 mEq ORAL DAILY PRN magnesium sulfate in sterile water 4 g iv piggyback 4 g INTRAVENOUS PRN salt and soda 10 mL oral liquid 10 mL ORAL QID nystatin 5 mL CUP (MYCOSTATIN) 5 mL ORAL QID hexmndzncbVPZVV-kjtiyc-nvkythwqu 10 mL oral liquid (BMX 1:1:1) 10 mL ORAL q 4 H PRN 0.9% NaCl 3-5 mL 3-5 mL INTRAVENOUS q 12 H acetaminophen 650 mg tab(s) (TYLENOL) 650 mg ORAL q 4 H PRN diphenhydrAMINE 25 mg (BENADRYL) 25 mg ORAL q 6 H PRN NaCl 0.9% iv infusion 100 mL/hr INTRAVENOUS CONTINUOUS ondansetron (PF) 8 mg injection (ZOFRAN) 8 mg INTRAVENOUS q 8 H PRN lactulose 20 g CUP (DUPHALAC, CONSTULOSE) 20 g ORAL BID LABORATORY DATA Recent Labs 08/16/18 0508 08/16/18 0020 08/15/18 1225 WBC 7.27 7.23 7.82 RBC 2.53* 2.40* 2.26* HB 7.9* 7.5* 7.4* HCT 23.2* 22.0* 21.5* PLT 23* 22* 25* MCV 91.7 91.7 95.1 MCH 31.2 31.3 32.7 MCHC 34.1 34.1 34.4 RDWCV 18.9* 18.6* 17.9* MPV 11.2 10.8 10.8 NEUTP 7.0 1.8 0.9 ABSNEUT 0.51* 0.13* 0.07* ABLAST 68.7* 68.4* 69.8* LYMPHP 24.3 29.8 29.3 MONOP 0.0 0.0 0.0 EODINP 0.0 0.0 0.0 BASOP 0.0 0.0 0.0 ABSMONO 0.00 0.00 0.00 ABSEOSIN 0.00 0.00 0.00 ABSBASO 0.00 0.00 0.00 Recent Labs 08/16/18 0508 08/16/18 0020 08/15/18 1225 08/15/18 0427 NA 137 136 136 138 K 4.2 4.1 4.3 4.3 CHLOR 101 102 102 102 CO2 25 22 24 25 CREAT 0.73 0.78 0.73 0.72 BUN 12 13 14 14 GLUC 124* 130* 106* 129* P 2.7 2.5* 2.3* 2.5* TPROT 6.6 6.6 6.8 6.9 ALB 3.6* 3.5* 3.9 3.8* CA 10.0 9.6 9.6 10.0 ALKPHOS 64 62 67 64 TBILI 1.4* 1.4* 1.2 1.3 AST 14 16 15 19 ALT 11 12 13 14 URICACID 3.4 3.4 -- 4.0 PTSEC 10.7 10.9 10.8 -- INR 1.0 1.0 1.0 -- APTT 25.4 24.0 23.8 25.1 DATA: Diagnostic tests reviewed for today's visit: Most recent labs and imaging results. Assessment/Plan Active Hospital Problems Diagnosis Date Noted - 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/2018 Priority: A Overview Note: Tari Black is a 73 year old female with PMH of HTN and arthritis being admitted due to concern for acute leukemia after going to her PCP for upset stomach, headaches, and fatigue (CBC showing pancytopenia). - 68% peripheral blasts on CBC, 08/16. - 08/15 peripheral flow: AML - CXR No acute findings, EKG NSR - mIVF, allopurinol, TLS labs daily - BMBx 08/15 -->path in process. -Treatment discussion, line placement, echo -->once Dx finalized. - Pancytopenia (HCC) 08/14/2018 Priority: B Overview Note: Secondary to acute leukemia - Transfuse LR + IR blood products for Hgb <8; Plt <10 or active bleeding - Transfuse RBCs today, 08/16. 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 - CT A/P: no e/o perianal abscess. - Start sitz baths PRN - Continue PRN Oxy IR - Start topical Lidocaine PRN - Continue bowel regimen - HTN (hypertension) 08/14/2018 Priority: F Overview Note: - Hold home Lisinopril w/ soft BPs, c/o intermittent dizziness - Electrolyte imbalance risk Priority: F Overview Note: - Replete K, Mg per protocol - Reg diet - continue mIVF NS @ 100cc/hr - Urinary retention Priority: H Overview Note: Urinary retention noted on 08/15, possibly r/t constipation vs rectal pain - Continue angel xgd - Strict I AND O' s - Continue bowel regimen - Hospital discharge follow-up Overview Note: - Pending diagnosis, treatment plan - Following Dr Hoang - PT/OT: eval AND treat Medication and Non-Pharmacologic VTE Prophylaxis/Anticoagulants 08/14/18 1515 vte pharmacologic prophylaxis contraindicated (fl,oh) 08/14/18 1515 vte non-pharmacologic prophylaxis contraindicated (fl,oh) 08/14/18 1515 activity - mobilize patient (fl,oh) VTE Prophylaxis: Contraindicated thrombocytopenia SIGNATURE: Sandy Villatoro APRN.CNP PATIENT NAME: Tari Black DATE: August 16, 2018 TIME: 7:59 AM PAGER/CONTACT #: [phone] HEMATOLOGY/MEDICAL ONCOLOGY STAFF: TEACHING PHYSICIAN NOTE OF PERSONAL INVOLVEMENT IN CARE ? I have reviewed the progress note obtained and documented by the licensed independent practitioner and I personally participated in the murphy components. I have discussed the case and management of the patient's care with the licensed independent practitioner. The following comments revise or confirm relevant murphy components of the licensed independent practitioner's note. ? IMPRESSION/PLAN: Suspected acute leukemia. Patient admitted for induction chemotherapy.??[facility] conducts standard manufacturing quality engineer validation for all diagnosed patients new to the cancer institute and this will also be performed during this admission. Awaiting BM biopsy final result. Rectal pain, CT negative, rectal surgery following. She is immunocompromised and will need transfusion support. ? Rachael Collier MD Associate Staff Pager:[phone] August 16, 2018 1:14 PM PROTIME Collected: 08/16/2018 Status: F Source: [place] 5:08 AM [facility] REPOSITORY TYPE CODE TESTS RESULT OUT OF RANGE REFERENCE UNITS LAB PSEC 9.7-13.0 sec PT Sec 10.7 LAB INR 0.9-1.3 PT INR 1.0 Result Comment: Vitamin K Antagonist (VKA) Therapeutic Range: INR 2 to 3 (Target INR of 2.5) Note: For patients treated with VKA drugs, such as warfarin, the [place] [employer]icians 2012 Guideline recommends [...] Chest 2012, 141:7S-47S Diallo RA, et al. [facility] 2017, 70: 252-289 Performed By: #### PT, PTT, CMP, PHOS, URIC, CBCDIF #### [facility] [address] [place], [place] [address] APTT Collected: 08/16/2018 Status: F Source: [place] 5:08 AM [facility] REPOSITORY TYPE CODE TESTS RESULT [...] laboratory APTT reagent in use throughout the [facility]. Performed By: #### PT, PTT, CMP, PHOS, URIC, CBCDIF #### [facility] [address] [place], [place] [address] COMP METABOLIC PANEL Collected: 08/16/2018 Status: F Source: [place] 5:[address] [place] [address] REPOSITORY TYPE CODE TESTS RESULT OUT OF REFERENCE UNITS RANGE LAB TP 6.3-8.0 g/dL Protein, Total 6.6 LAB ALB 3.9-4.9 g/dL Low Albumin 3.6 LAB CA 8.5-10.2 mg/dL Calcium, Total 10.0 LAB TBIL 0.2-1.3 mg/dL Bilirubin, High Total 1.4 LAB ALKP 34-123 U/L Alkaline Phosphatase 64 LAB AST 13-35 U/L AST 14 LAB GLU 74-99 mg/dL Glucose High 124 Result Comment: The [place] Diabetes Association (ADA) provides guidance for cutoff values for fasting glucose and random glucose. The ADA defines fasting as no caloric intake for at least 8 hours. Fas ting plasma glucose results between 100 to 125 [...] Standards of Medical Care in Diabetes 2016, [place] Diabetes Association. Diabetes Care. 2016.39(Suppl 1). LAB BUN 7-21 mg/dL BUN 12 LAB CRET 0.58-0.96 mg/dL Creatinine 0.73 LAB NA 136-144 mmol/L Sodium 137 LAB K 3.7-5.1 mmol/L Potassium 4.2 LAB CL 97-105 mmol/L Chloride 101 LAB CO2 22-30 mmol/L CO2 25 LAB AGAP 9-18 mmol/L Anion Gap 11 LAB ALT 7-38 U/L ALT 11 LAB GFRAA eGFR- Amer. >60 LAB GFRNAA [...] PT, PTT, CMP, PHOS, URIC, CBCDIF #### [facility] [address] [place], [place] [address] PHOSPHORUS Collected: 08/16/2018 Status: F Source: [place] 5:08 AM [facility] REPOSITORY TYPE CODE TESTS RESULT OUT OF REFERENCE UNITS RANGE LAB PHOS 2.7-4.8 mg/dL Phosphorus 2.7 Performed By: #### PT, PTT, CMP, PHOS, URIC, CBCDIF #### [facility] [address] [place], [place] [address] URIC ACID Collected: 08/16/2018 Status: F Source: [place] 5:08 AM [facility] REPOSITORY TYPE CODE TESTS RESULT OUT OF RANGE REFERENCE UNITS LAB URIC 2.5-6.6 mg/dL Uric Acid 3.4 Performed By: #### PT, PTT, CMP, PHOS, URIC, CBCDIF #### [facility] [address] [place] [id number] CBC AND DIFFERENTIAL Collected: 08/16/2018 Status: F Source: [place] 5:08 AM [facility] REPOSITORY TYPE CODE TESTS RESULT OUT OF REFERENCE UNITS RANGE LAB WBC 3.70-11.00 k/uL WBC 7.27 LAB RBC 3.90-5.20 m/uL Low RBC 2.53 LAB HGB 11.5-15.5 g/dL Low Hemoglobin 7.9 LAB HCT 36.0-46.0 % Low Hematocrit 23.2 LAB MCV 80.0-100.0 fL MCV 91.7 LAB MCH 26.0-34.0 pG MCH 31.2 LAB MCHC 30.5-36.0 g/dL MCHC 34.1 LAB RDWCV 11.5-15.0 % RDW-CV High 18.9 LAB PLTCT 150-400 k/uL Low Platelet Count 23 Result Comment: Result checked and verified No clot detected. LAB MPV 9.0-12.7 fL MPV 11.2 LAB ANEUT % Neut% 7.0 LAB AANEUT 1.45-7.50 k/uL Abs Neut 0.51 Low LAB ALYMP % Lymph% 24.3 LAB AALYMP 1.00-4.00 k/uL Abs Lymph 1.77 LAB AMONO % [place]% 0.0 LAB AAMONO <0.87 k/uL Abs [place] 0.00 LAB AEOS % Eosin% 0.0 LAB AAEOS <0.46 k/uL Abs Eosin 0.00 LAB ABASO % Baso% 0.0 LAB AABASO <0.11 k/uL Abs Baso 0.00 LAB ABLAST 0 % Blast% 68.7 High LAB ANIIMI Anisocytosis Present LAB OVAIMI Ovalocytes Few LAB PLTEST Platelet Estimate Platelet estimate decreased LAB DTYP DTYPE Manual Diff Performed By: #### PT, PTT, CMP, PHOS, URIC, CBCDIF #### [facility] [address] [place], [place] [address] NURSING PROG Observed: 08/16/2018 Status: COMPLETED Source: [place] 2:52 AM [facility] REPOSITORY HNO ID: [id number] Author: Kristal (Rn) MADELAINE Flores Service: (none) Author Type: Registered Nurse Type: Nursing Progress Note Filed: 08/16/2018 6:48 AM Note Text: Nursing Progress Note Patient Name: Tari Black Patient Location: [place] [address]/[facility] Daily Note: 0230: Lysis labs resulted Hgb 7.5 AND Phos 2.5. call or contact centre manager notified. No orders received. This note was completed by: Kristal Flores RN FIBRINOGEN Collected: 08/16/2018 Status: F Source: [place] 12:20 AM [facility] REPOSITORY TYPE CODE TESTS RESULT OUT OF REFERENCE UNITS RANGE LAB FIBCT 200-400 mg/dL High Fibrinogen 424 Performed By: #### FIBCT, PT, PTT, LD6, CMP, PHOS, URIC, CBCDIF #### [facility] [address] [place], [place] [address] PROTIME Collected: 08/16/2018 Status: F Source: [place] 12:20 AM [facility] REPOSITORY TYPE CODE TESTS RESULT OUT OF RANGE REFERENCE UNITS LAB PSEC 9.7-13.0 sec PT Sec 10.9 LAB INR 0.9-1.3 PT INR 1.0 Result Comment: Vitamin K Antagonist (VKA) Therapeutic Range: INR 2 to 3 (Target INR of 2.5) Note: For patients treated with VKA drugs, such as warfarin, the [place] [employer]icians 2012 Guideline recommends [...] MICHEL, et al. Chest 2012, 141:7S-47S Diallo RA, et al. [facility] 2017, 70: 252-289 Performed By: #### FIBCT, PT, PTT, LD6, CMP, PHOS, URIC, CBCDIF #### [facility] [address] [place], [place] [address] APTT Collected: 08/16/2018 Status: F Source: [place] 12:20 AM [facility] REPOSITORY TYPE CODE TESTS RESULT [...] laboratory APTT reagent in use throughout the [facility]. Performed By: #### FIBCT, PT, PTT, LD6, CMP, PHOS, URIC, CBCDIF #### [facility] [address] [place], [place] [address] LD Collected: 08/16/2018 Status: F Source: [facility] 12:20 AM [facility] REPOSITORY TYPE CODE TESTS RESULT OUT OF RANGE REFERENCE UNITS LAB LD 135-214 U/L High LD 268 Performed By: #### FIBCT, PT, PTT, LD6, CMP, PHOS, URIC, CBCDIF #### [facility] [address] [place], [place] [id number] COMP METABOLIC PANEL Collected: 08/16/2018 Status: F Source: [place] 12:20 AM [facility] REPOSITORY TYPE CODE TESTS RESULT OUT OF REFERENCE UNITS RANGE LAB TP 6.3-8.0 g/dL Protein, Total 6.6 LAB ALB 3.9-4.9 g/dL Low Albumin 3.5 LAB CA 8.5-10.2 mg/dL Calcium, Total 9.6 LAB TBIL 0.2-1.3 mg/dL Bilirubin, High Total 1.4 LAB ALKP 34-123 U/L Alkaline Phosphatase 62 LAB AST 13-35 U/L AST 16 LAB GLU 74-99 mg/dL Glucose High 130 Result Comment: The [place] Diabetes Association (ADA) provides guidance for cutoff values for fasting glucose and random glucose. The ADA defines fasting as no caloric intake for at least 8 hours. Fas ting plasma glucose results between 100 to 125 [...] Standards of Medical Care in Diabetes 2016, [place] [employer] Association. Diabetes Care. 2016.39(Suppl 1). LAB BUN 7-21 mg/dL BUN 13 LAB CRET 0.58-0.96 mg/dL Creatinine 0.78 LAB NA 136-144 mmol/L Sodium 136 LAB K 3.7-5.1 mmol/L Potassium 4.1 LAB CL 97-105 mmol/L Chloride 102 LAB CO2 22-30 mmol/L CO2 22 LAB AGAP 9-18 mmol/L Anion Gap 12 LAB ALT 7-38 U/L ALT 12 LAB GFRAA eGFR- Amer. >60 LAB GFRNAA [...] PTT, LD6, CMP, PHOS, URIC, CBCDIF #### [facility] [address] [place], [place] [address] PHOSPHORUS Collected: 08/16/2018 Status: F Source: [place] 12:20 AM [facility] REPOSITORY TYPE CODE TESTS RESULT OUT OF REFERENCE UNITS RANGE LAB PHOS 2.7-4.8 mg/dL Low Phosphorus 2.5 Performed By: #### FIBCT, PT, PTT, LD6, CMP, PHOS, URIC, CBCDIF #### [place] [address] URIC ACID Collected: 08/16/2018 Status: F Source: [place] 12:20 AM [facility] REPOSITORY TYPE CODE TESTS RESULT OUT OF RANGE REFERENCE UNITS LAB URIC 2.5-6.6 mg/dL Uric Acid 3.4 Performed By: #### FIBCT, PT, PTT, LD6, CMP, PHOS, URIC, CBCDIF #### [place] [id number] CBC AND DIFFERENTIAL Collected: 08/16/2018 Status: F Source: [place] 12:20 AM [facility] REPOSITORY TYPE CODE TESTS RESULT OUT OF REFERENCE UNITS RANGE LAB WBC 3.70-11.00 k/uL WBC 7.23 LAB RBC 3.90-5.20 m/uL Low RBC 2.40 LAB HGB 11.5-15.5 g/dL Low Hemoglobin 7.5 LAB HCT 36.0-46.0 % Low Hematocrit 22.0 LAB MCV 80.0-100.0 fL MCV 91.7 LAB MCH 26.0-34.0 pG MCH 31.3 LAB MCHC 30.5-36.0 g/dL MCHC 34.1 LAB RDWCV 11.5-15.0 % RDW-CV High 18.6 LAB PLTCT 150-400 k/uL Low Platelet Count 22 Result Comment: Result checked and verified No clot detected. LAB MPV 9.0-12.7 fL MPV 10.8 LAB ANEUT % Neut% 1.8 LAB AANEUT 1.45-7.50 k/uL Abs Neut 0.13 Low LAB ALYMP % Lymph% 29.8 LAB AALYMP 1.00-4.00 k/uL Abs Lymph 2.15 LAB AMONO % [place]% 0.0 LAB AAMONO <0.87 k/uL Abs [place] 0.00 LAB AEOS % Eosin% 0.0 LAB AAEOS <0.46 k/uL Abs Eosin 0.00 LAB ABASO % Baso% 0.0 LAB AABASO <0.11 k/uL Abs Baso 0.00 LAB NRBC 0 /100 WBC NRBCs 2 High LAB ABLAST 0 % Blast% 68.4 High LAB ANIIMI Anisocytosis Present LAB AUEIMI Saroj Rods Present LAB OVAIMI Ovalocytes Few LAB PLTEST Platelet Estimate Platelet estimate decreased LAB DTYP DTYPE Manual Diff Performed By: #### FIBCT, PT, PTT, LD6, CMP, PHOS, URIC, CBCDIF #### [facility] [address] [place] [id number] PROGRESS Observed: 08/15/2018 Status: COMPLETED Source: [place] 9:21 PM [facility] REPOSITORY HNO ID: [id number] Author: SUSI Huff (Ct) Service: Radiology Author Type: Clinical Scrap Preparer Type: Progress Notes Filed: 08/15/2018 9:21 PM Note Text: Radiology Service Progress Note PATIENT NAME: Tari Black DATE OF SERVICE: August 15, 2018 TIME: 9:21 PM PATIENT IDENTITY VERIFICATION COMPLETED USING TWO (2) METHODS: Patient confirmed name verbally and ID band matches.. PATIENT GENDER DATA: Female. status: : No status: NO. PATIENT RELEVANT IMPLANT DATA REVIEWED: Not Applicable RADIOLOGY DEPARTMENT: CT; Exam(s) Completed: Abdomen/Pelvis PERIPHERAL IV DATA: Inpatient: see LDA documentation SIGNED BY: SUSI Huff August 15, 2018 9:[address] ABD/PEL W IVCON Observed: 08/15/2018 Status: F Source: [place] 9:20 PM [facility] REPOSITORY * * *Final Report* * * DATE OF EXAM: Aug 15 2018 9:20PM [facility] [place] ABD/PEL W IVCON / PROCEDURE REASON: Infection, abdomen-pelvis * * * * Physician Interpretation * * * * EXAMINATION: CT ABDOMEN AND PELVIS WITH IV CONTRAST CLINICAL HISTORY: Patient presented with abdominal pain and headache, concern for acute leukemia due to pancytopenia. Patient complains of perianal pain, rule out perianal abscess. TECHNIQUE: CT of the abdomen and pelvis was performed using standard technique, scanning from just above the dome of the diaphragm to the symphysis pubis. MQ: CTAP_3 Contrast: IV: 150 ml of Omnipaque 300 Oral: 900 ml of 50ML Omnipaque [address] Radiation dose: Integrated Dose-length product (DLP) for this visit = 997 mGy*cm. CT Dose Reduction Employed: Automated exposure control (AEC) COMPARISON: None. RESULT: Liver: No mass. 1.3 cm hepatic dome and 0.9 cm segment VIII partly calcified hepatic lesions. Biliary: No bile duct dilation. Gallbladder is unremarkable. Spleen: No mass. No splenomegaly. Pancreas: No mass or duct dilation. Adrenals: No mass. Kidneys: Mild right renal atrophy with cortical thinning. Multiple hypoattenuating lesions in the left kidney, probable cysts, for example a 1.4 cm left inferior pole cyst (2:68) with punctate wall calcification. GI tract: No dilation or wall thickening. Diffuse colonic diverticulosis without signs of diverticulitis. Lymph nodes: No abdominal or pelvic lymphadenopathy. Mesentery/Peritoneum: No ascites or mass. Retroperitoneum: No mass. Vasculature: The celiac axis and SMA are patent. The portal vein and branches, splenic vein, SMV, and hepatic veins are patent. Arterial atherosclerotic disease without aneurysm. Pelvis: No mass, ascites or fluid collection. Angel catheter within partially decompressed bladder.. No CT evidence of perianal abscess. Bones/Soft Tissues: Large rectus diastases. Scoliosis with advanced degenerative changes. Lower thorax: Bibasilar atelectasis. IMPRESSION: NO CT EVIDENCE OF PERIANAL ABSCESS OR OTHER ACUTE PROCESS IN THE ABDOMEN AND PELVIS. Flight Superintendent: YOSEF Transcribe Date/Time: Aug 15 2018 9:50P Dictated by : ABRAM SALAZAR MD This examination was interpreted and the report reviewed and electronically signed by: NIC SARAVIA MD on Aug 16 2018 8:26AM EST [id number] NURSING PROG Observed: 08/15/2018 Status: COMPLETED Source: [place] 4:36 PM [facility] REPOSITORY HNO ID: [id number] Author: Hillary (Rn) MADELAINE Solitario Service: (none) Author Type: Registered Nurse Type: Nursing Progress Note Filed: 08/15/2018 6:11 PM Note Text: Nursing Progress Note Patient Name: Tari Black Patient Location: [place] [address]/[facility]18 Daily Note: 1545- pt. Complaining of feeling full. Pt. Has not been able to void since straight cath at 1030am. Bladder scan done- 712m. WINDOW DRAPER Harini notified. Angel placed by MADELAINE Branch. 640 ml out. Vss. Afebrile. Denies pain. No nausea. Assessment done per flowsheet. Supportive family at bedside. 1700- oral contrast started. Verbal education provided to pt and family regarding procedure. 1810- Oral contrast finished. CT notified. This note was completed by: Hillary Solitario RN CONSULT PROG Observed: 08/15/2018 Status: COMPLETED Source: [place] 4:05 PM [facility] REPOSITORY HNO ID: [id number] Author: Brigitte Hilliard Service: Colorectal Author Type: Physician Type: Consult Progress Note Filed: 08/16/2018 3:09 PM Note Text: [facility] INITIAL CONSULT SERVICE DATE: 08/15/2018 SERVICE TIME: 16:00 REASON FOR CONSULT: Perianal pain in setting of ? Acute leukemia REQUESTING PHYSICIAN: Dr Hoang PRIMARY CARE PHYSICIAN: Yariel Villasenor MD Subjective HISTORY OF PRESENT ILLNESS: Ms. Black is a 73 year old female who presents for abdominal discomfort, fatigue and easy bruising; CBC showed pancytopenia (Hb and platelet) ? Leukemic process. Now for hematological workup. PMH Obesity; HTN (on Lisinopril), Arthritis; No previous abdo surgey Denied any NANDV; however she had perianal pain for the last 3 days; no fever/chills/rigors; no discharge; passing flatus but no BM for 3 days; no [place] bleeding; Never had a colonoscopy Currently having difficulty urinating; feeling bloated; no abdo pain FUNCTIONAL STATUS: Participate in moderate recreational activities, such as golf, bowling, dancing, doubles tennis, or throwing a baseball or football (6.00 METs) No past medical history on file. No past surgical history on file. No family history on file. Social History Substance Use Topics - Smoking status: Not on file - Smokeless tobacco: Not on file - Alcohol use Not on file No prescriptions prior to admission. Current hospital medications: oxyCODONE IR 5-10 mg tab(s) (ROXICODONE) 5-10 mg ORAL q 4 H PRN iv contrast (radiology procedure) INTRAVENOUS DIRECTED PRN enteric contrast (radiology procedure) ORAL DIRECTED PRN lisinopril 20 mg tab(s) (ZESTRIL, PRINIVIL) 20 mg ORAL DAILY allopurinol 300 mg tab(s) (ZYLOPRIM) 300 mg ORAL DAILY acyclovir 400 mg tab(s) (ZOVIRAX) 400 mg ORAL BID potassium chloride iv piggyback 20 mEq/100 mL 20 mEq INTRAVENOUS PRN potassium chloride ER 40-60 mEq tab(s) (K-DUR, KLOR-CON) 40- 60 mEq ORAL DAILY PRN magnesium sulfate in sterile water 4 g iv piggyback 4 g INTRAVENOUS PRN salt and soda 10 mL oral liquid 10 mL ORAL QID nystatin 5 mL CUP (MYCOSTATIN) 5 mL ORAL QID dbkomxylyaLQRWV-zjqhwj-wksgzlusd 10 mL oral liquid (BMX 1:1:1) 10 mL ORAL q 4 H PRN 0.9% NaCl 3-5 mL 3-5 mL INTRAVENOUS q 12 H acetaminophen 650 mg tab(s) (TYLENOL) 650 mg ORAL q 4 H PRN diphenhydrAMINE 25 mg (BENADRYL) 25 mg ORAL q 6 H PRN NaCl 0.9% iv infusion 125 mL/hr INTRAVENOUS CONTINUOUS ondansetron (PF) 8 mg injection (ZOFRAN) 8 mg INTRAVENOUS q 8 H PRN lactulose 20 g CUP (DUPHALAC, CONSTULOSE) 20 g ORAL BID ALLERGIES No Known Allergies Objective PHYSICAL EXAM: BP 123/53 Pulse 97 Temp (Src) 98.1 (Oral) Resp 16 Ht 5' 5.945[verified by Piper RN[ (1.68m) Wt 212 lb 11.9 oz (96.5kg) SpO2 95% BMI 34.40 kg/(m2). Physical Exam Performed Abdo: soft and non tender Discussed with WINDOW DRAPER: not neutropenic, can perform ZOHREH Perianal exam with Machine Shop Inspector (nurse on duty): slight swelling posteriorly with tenderness; no sign of fissure when effacing perianal skin; scarring in left posterior lateral position ? Previous external drainage site; tender posteriorly in distal rectum and anal canal posteriorly; no obvious collection. DATA: Diagnostic tests reviewed for today's visit: Most recent labs Impression/Recommendations 1. Hematological changes: ;low Hb and platelet - awaiting BMT result 2. Perianal pain ? Perianal abscess but not clinically evident - warrant CT for evaluation given abdo bloating and low Hb; ? Abscess ? Other underlying GI malignancy Will d/w staff (Dr Hilliard) SIGNATURE: JOURDAN FONSECA MD PATIENT NAME: Tari Black DATE: August 15, 2018 TIME: 4:05 PM PAGER/CONTACT #: [phone] [facility] Staff: I saw, interviewed and examined the patient. agree with the note above. Anal pain for 4 days [since Saturday] in context of hematological dz. No systemic features of infection nor local signs of infection or sepsis. CTscan negative for occult source of sepsis However tender to gentle pressure on posterior perianal area. Suspect anal fissure. Suggest/recommend: Warm sitz bath Lidocaine gel every 4 hours Diltiazem 2% cream [compound drug, made in pharmacy]: apply pea size on the anal orifice Common AE: itchiness and headache. Discussed with pt and family at robbie side. No surgical intervention. Please call with any questions or concerns Brigitte Hilliard MD PROCEDURE Observed: 08/15/2018 Status: COMPLETED Source: [place] 1:44 PM [facility] REPOSITORY O ID: [id number] Author: Xuan Lomax (Fel) Service: Hematology/Oncology Author Type: Fellow Type: Procedures Filed: 08/15/2018 1:47 PM Note Text: BEDSIDE PROCEDURE NOTE PROCEDURE DATE: August 15, 2018 PROCEDURE START TIME: 10:30 AM PRIMARY PROCEDURALIST: Xuan Lomax MD NUCLEAR SUPERVISING OPERATOR(S): 1 INFORMED CONSENT: Informed Consent obtained and on the chart UNIVERSAL PROTOCOL / SAFETY CHECKLIST Sign in Communication: Completed Time Out: Team Confirms the Correct Patient, Correct Procedure, Correct Site and Site Marking, Correct Position (if applicable), Prep and Dry Time (if applicable). Time: 10:30 am Affirmation of Time Out: YES Sign Out Discussion: Completed PROCEDURE: BONE MARROW BIOPSY Aspiration Type: Unilateral Site: Left Posterior Superior Iliac Crest Patient Position: Right lateral decubitis Site Prep: Povidone iodine, allowed to dry for 30 seconds Local Anesthesia: 0 mls of 2% Buffered Lidocaine and 10 mls of 1% Lidocaine Procedure: FieldAware biopsy system was used.,Using aseptic technique, bone marrow aspiration was performed.,A touch prep was taken.,Core biopsy was obtained in 2 pieces of 2.0 cm and 0.5 cm.,The core biopsy was confirmed.,Pressure dressing applied to Bone Marrow site(s). Hemostasis maintained.,Post-procedure care was reviewed and explained to the patient.,Patient instructed to call with any complaints of redness, swelling, increased or unresolved pain, bleeding, chills, bruising, and/or fever.,Patient verbalized understanding. Complications: None Patient tolerated procedure well. Specimens: Routine analysis Differential Cytogenetics Flow cytometry FLT3 mutational status FISH for BCR-ABL and MLL DNA extraction NGS Estimated Blood Loss: 10 ml SIGNATURE: Xuan Lomax MD PATIENT NAME: Tari Black DATE: August 15, 2018 TIME: 1:44 PM PAGER/CONTACT #: [phone] SOCIAL WORK Observed: 08/15/2018 Status: COMPLETED Source: [place] 1:36 PM [facility] REPOSIT[facility] HNO ID: [id number] Author: Ruba Winters Service: Social Work Author Type: Electricity Trader Type: Social Work Filed: 08/15/2018 2:06 PM Note Text: PSYCHOSOCIAL ASSESSMENT Date of Service: August 15, 2018 Tari Black is a 73 year old female being seen for initial social work assessment. Diagnosis: Acute Leukemia New Primary Oncologist: Dr. Hoang Radiation Oncologist: BILL Goals of Care: Curative intent Today's visit includes: self/patient Family History of Cancer: Not discussed *SUPPORT NETWORK: Marital status: ( in jail). Parent(s): Child/Children: Yes. wild animal caretaker arrangements needed: No Home Health Provider: Not discussed Community Services: No Johanna Identified: Yes Orthodoxy/Spirituality: Jewish Are these practices or beliefs that may affect or influence treatment? No *EMPLOYMENT/FINANCIAL/HEALTH INSURANCE: Employment: Retired Income source: Supported financially by family Insurance: Jewish [employer] Policy Prescription coverage: No COBRA Is the patient appropriate for referral to [facility] COBRA Assistance program? No Financial Distress: Patient uncertain at this time. [place]: No *LIVING ARRANGEMENTS: Type: House- independent ranch Resides with: 2 adult daughters *FUNCTIONAL STATUS: Cognitive limitations: none Physical limitations: none Language barrier: No Hearing Impaired: No Speech Impaired: No Visual Impairments: No Literacy Issues: Yes, will need medical details explained. Special considerations/accommodations needed: No MENTAL HEALTH HISTORY: No History of combat/trauma: No Substance Use and Treatment History: denied History of Abuse: No Issues with: ? Sleep:No ? Eating:No ? Exercising: No ? Stress Management: No *ADVANCE DIRECTIVES/LEGAL DOCUMENTS: Living Will: No and declined at this time Health Care Durable Power of Support Clerk: No and declined at this time Scanned into EPIC: No Guardianship: No Scanned into EPIC:No *COPING STATUS: Coping Strengths: supportive relationships with immediate family, with friends, with extended family, with neighbors and with worship spirituality successful managing past crises hopefulness self advocate strong problem-solving skills ability to plan able to follow direction consistently over time able to communicate effectively Current affect/mood: anxious History of Loss: Yes, in jail Adjustment to diagnosis: responding appropriately *BARRIERS/CARE CHALLENGES: Geographically isolated Are barriers/care challenges identified likely to have an impact on the patient's quality of life during treatment? No *CLINICAL IMPRESSION: SW met with patient to complete assessment. Patient denied any history of depression or anxiety. Patient reported that she has 2 adult daughters that live with her. One daughter has use of a cell phone. Patient is old order Jewish however one of the less strict categories. Patient reported that her is currently in jail however did not elaborate regarding circumstances. SW made referral to [facility] for family members. Patient will need further education regarding diagnosis and treatment plan. SW to remain available as needed. Patient revealed feeling overwhelmed. SW provided active listening and support. INTERVENTIONS/REFERRALS TO BE PROVIDED: Communicate pertinent medical/psychosocial information to Cancer Center team Provide emotional support to patient/family Referral to community resource Assist with financial support applications Resources and Referrals: ? Internal: NA ? External: N/A PLAN: Follow up appointment with TRUE in: YESENIA Rivera CASE MGT INIT Observed: 08/15/2018 Status: COMPLETED Source: [place] 1:15 PM [facility] REPOSITORY HNO ID: [id number] Author: Shavon (Rn) MADELAINE Rodriguez Service: Case Management Author Type: Registered Nurse Type: Care Mgt Initial Assessment Filed: 08/15/2018 1:18 PM Note Text: CARE MANAGEMENT: ASSESSMENT AND DISCHARGE PLAN SERVICE DATE: 08/15/2018 SERVICE TIME: 1:15 PM PRIMARY CARE PHYSICIAN: Yariel Villasenor MD ADMISSION STATUS: Inpatient Needs Prior to Discharge: To Be Determined MEDICAL: Patient/Convict Guard Stated Goals: To return home to life as it was Health Insurance: [place] POLICY See above Health Issues Impacting Discharge Plan: None Last Admission Date: none Is this Within the Past 30 days? No Advance Directive: Current Advance Directive: Living Will In Chart: No Mail Weigher Attempted to Assist with AD Completion: No Unable to Assist Due To:: Other: See Comment (Pt has at home) Health Literacy: 1. How often do you need to have someone help you when you read instructions, pamphlets, or other written material from your doctor or pharmacy? Sometimes - 3 2. How confident are you filling out medical forms by yourself? Quite a bit - 2 If Patient scores > 3 on either question, the following interventions were put into place: Sit with Patient and Gave Patient the opportunity to ask questions FUNCTIONAL AND COGNITIVE/BEHAVIORAL PRIOR TO ADMISSION: Baseline Mental Status: Alert, Person, Place , Time and Situation Functional Status: Independent Does Patient Currently Receive Any Community Services or Home Care? None Equipment Prior to Admission: None Has the Patient Been in a [facility] Facility in the Past 30 days? No SOCIAL: Living Arrangement: Home Lives With: 2 daughters and a son in law and grandchildren Financial Resources: N/A Primary Contact: Extended Emergency Contact Information Primary Emergency Contact: Junior Sonia Mobile Relation: Son Secondary Emergency Contact: Darron Dinero Mobile Relation: Son Supportive: Yes Other Important Patient Contacts: None Caregiver Assessment: Caregiver is ready, willing and able to meet the patient's needs as recommended by the inter-professional team? No Caregiver Needed Patient's transition needs and plan for meeting these needs: Family will be able to transport Does the patient have an acute stroke diagnosis, or has the patient had a stroke during this admission? No Medication Adherence: I am convinced of the importance of my prescription medication: Agree completely - 0 I worry that my prescription medication will do more harm than good to me Disagree completely - 0 I feel financially burdened by my [id number]-hr-owopji expenses for my prescription medication: Disagree completely - 0 Patient is categorized as low risk < 2 Are you interested in bedside delivery of your medications? No Food Concerns: In the Last Month, Have You had Trouble Getting Food? No trouble getting food During the Last Month, Have You Worried Whether Your Food Would Run Out Before You Had Enough Money to Buy More? No Is the Patient Psychosocially Complex? No ASSESSMENT AND PLAN: Medical Needs: TBD Psychosocial Needs: None FREEDOM OF CHOICE EXPLAINED: N/A POTENTIAL TRANSITION PLANS Home To Be Determined manager french met with patient at bedside. Explained role of church supervisor and discharge planning. Pt stated indep with ADL's/IADL's and able to communicate needs. Indep prior to admission, here for blood work being off, had a BMBX today, awaiting results. Care management team is following patient for skilled needs and discharge planning. 24 hours notice is required if any new needs are anticipated in order to ensure a safe discharge. NO WEEKEND DISCHARGE ANTICIPATED. You may page weekend counter caser @[phone] for any immediate discharge planning needs. Primary team to continue to manage and evaluate patient?s care. Naturopathic Oncology Provider will reassess on Saturday for ongoing coordination of discharge plan. SIGNATURE: Shavon Rodriguez RN PATIENT NAME: Tari Black DATE: August 15, 2018 TIME: 1:15 PM PAGER/CONTACT #: [phone] FIBRINOGEN Collected: 08/15/2018 Status: F Source: [place] 12:25 PM [facility] REPOSITORY TYPE CODE TESTS RESULT OUT OF REFERENCE UNITS RANGE LAB FIBCT 200-400 mg/dL High Fibrinogen 450 Performed By: #### FIBCT, PT, PTT, CMP, PHOS, CBCDIF #### [facility] [address] [place] [address] PROTIME Collected: 08/15/2018 Status: F Source: [place] 12:25 PM [facility] REPOSITORY TYPE CODE TESTS RESULT OUT OF RANGE REFERENCE UNITS LAB PSEC 9.7-13.0 sec PT Sec 10.8 LAB INR 0.9-1.3 PT INR 1.0 Result Comment: Vitamin K Antagonist (VKA) Therapeutic Range: INR 2 to 3 (Target INR of 2.5) Note: For patients treated with VKA drugs, such as warfarin, the [place] College of Chest Physicians 2012 Guideline recommends [...] MICHEL, et al. Chest 2012, 141:7S-47S Diallo RA, et al. [facility] 2017, 70: 252-289 Performed By: #### FIBCT, PT, PTT, CMP, PHOS, CBCDIF #### [facility] [address] [place], [place] [address] APTT Collected: 08/15/2018 Status: F Source: [place] 12:25 PM [facility] REPOSITORY TYPE CODE TESTS RESULT [...] laboratory APTT reagent in use throughout the [facility]. Performed By: #### FIBCT, PT, PTT, CMP, PHOS, CBCDIF #### [facility] [address] [place], [place] [address] COMP METABOLIC PANEL Collected: 08/15/2018 Status: F Source: [place] 12:25 PM [facility] REPOSITORY TYPE CODE TESTS RESULT OUT OF REFERENCE UNITS RANGE LAB TP 6.3-8.0 g/dL Protein, Total 6.8 LAB ALB 3.9-4.9 g/dL Albumin 3.9 LAB CA 8.5-10.2 mg/dL Calcium, Total 9.6 LAB TBIL 0.2-1.3 mg/dL Bilirubin, Total 1.2 LAB ALKP 34-123 U/L Alkaline Phosphatase 67 LAB AST 13-35 U/L AST 15 LAB GLU 74-99 mg/dL Glucose High 106 Result Comment: The [place] Diabetes Association (ADA) provides guidance for cutoff values for fasting glucose and random glucose. The ADA defines fasting as no caloric intake for at least 8 hours. Fas ting plasma glucose results between 100 to 125 [...] Standards of Medical Care in Diabetes 2016, [place] Diabetes Association. Diabetes Care. 2016.39(Suppl 1). LAB BUN 7-21 mg/dL BUN 14 LAB CRET 0.58-0.96 mg/dL Creatinine 0.73 LAB NA 136-144 mmol/L Sodium 136 LAB K 3.7-5.1 mmol/L Potassium 4.3 LAB CL 97-105 mmol/L Chloride 102 LAB CO2 22-30 mmol/L CO2 24 LAB AGAP 9-18 mmol/L Anion Gap 10 LAB ALT 7-38 U/L ALT 13 LAB GFRAA eGFR- Amer. >60 LAB GFRNAA . eGFR-All Other Races >60 Result Comment: eGFR (Estimated GFR) Units of measure: mL/min/1.73 meters squared eGFR is derived from the reexpressed MDRD Study equation using the following parameters: serum creatinine, age, gender and race. The creatinine assay has been calibrated to be traceable to IDCO. An eGFR <60 mL/min/1.73m2 for >3 months is consistent with chronic kidney disease. Refer to KDOQI guidelines for clinical interpretation. In patients with unstable renal function, e.g. those with acute kidney injury, the eGFR may not accurately reflect actual GFR. Performed By: #### FIBCT, PT, PTT, CMP, PHOS, CBCDIF #### [facility] [address] [place], [place] [address] PHOSPHORUS Collected: 08/15/2018 Status: F Source: [place] 12:25 PM [facility] REPOSITORY TYPE CODE TESTS RESULT OUT OF REFERENCE UNITS RANGE LAB PHOS 2.7-4.8 mg/dL Low Phosphorus 2.3 Performed By: #### FIBCT, PT, PTT, CMP, PHOS, CBCDIF #### [facility] [address] [place], [place] [address] CBC AND DIFFERENTIAL Collected: 08/15/2018 Status: F Source: [place] 12:25 [facility] REPOSITORY TYPE CODE TESTS RESULT OUT OF REFERENCE UNITS RANGE LAB WBC 3.70-11.00 k/uL WBC 7.82 LAB RBC 3.90-5.20 m/uL Low RBC 2.26 LAB HGB 11.5-15.5 g/dL Low Hemoglobin 7.4 LAB HCT 36.0-46.0 % Low Hematocrit 21.5 LAB MCV 80.0-100.0 fL MCV 95.1 LAB MCH 26.0-34.0 pG MCH 32.7 LAB MCHC 30.5-36.0 g/dL MCHC 34.4 LAB RDWCV 11.5-15.0 % RDW-CV High 17.9 LAB PLTCT 150-400 k/uL Low Platelet Count 25 Result Comment: Result checked and verified No clot detected. LAB MPV 9.0-12.7 fL MPV 10.8 LAB ANEUT % Neut% 0.9 LAB AANEUT 1.45-7.50 k/uL Abs Neut 0.07 Low LAB ALYMP % Lymph% 29.3 LAB AALYMP 1.00-4.00 k/uL Abs Lymph 2.29 LAB AMONO % [place]% 0.0 LAB AAMONO <0.87 k/uL Abs [place] 0.00 LAB AEOS % Eosin% 0.0 LAB AAEOS <0.46 k/uL Abs Eosin 0.00 LAB ABASO % Baso% 0.0 LAB AABASO <0.11 k/uL Abs Baso 0.00 LAB ABLAST 0 % Blast% 69.8 High LAB ANIIMI Anisocytosis Present LAB AUEIMI Saroj Rods Present LAB OVAIMI Ovalocytes Few LAB PLTEST Platelet Estimate Platelet estimate decreased LAB DTYP DTYPE Manual Diff Performed By: #### FIBCT, PT, PTT, CMP, PHOS, CBCDIF #### [facility] [address] [place], [place] [address] FLT3 GENE MUTATIONS Collected: 08/15/2018 Status: F Source: [place] 11:05 [facility] REPOSITORY TYPE CODE TESTS RESULT OUT OF REFERENCE UNITS RANGE LAB FLTRES Result Duplicate request Result Comment: Account Credited SEE RESULT FOR HNMNGS. DMCKNIGHT 08 15 2018 Performed By: #### FLT3 #### [facility] [address] FLOW CYTO HOLD Collected: 08/15/2018 Status: F Source: [place] SAMPLE 11:05 AM [facility] REPOSITORY TYPE CODE TESTS RESULT OUT OF REFERENCE UNITS RANGE LAB FLOHLD A bone marrow sample was Flow received for potential Cyto Hold flow cytometry Sample studies. Following morphologic review of the bone marrow, flow cytometric studies will be ordered by the hematopathologist if testing is indicated. Please see the corresponding bone marrow surgical pathology report. Result Comment: [id number] Performed By: #### FLOHLD #### [facility] [address] [place], [place] [address] FISH FOR PML/ROBERT Collected: 08/15/2018 Status: F Source: [place] 11:05 [facility] REPOSITORY TYPE CODE TESTS RESULT OUT OF REFERENCE UNITS RANGE LAB APLRES APL (NOTE) Result Result Comment: FISH results will follow in [facility] surgical pathology case #[id number] when complete. Performed By: #### APLFSH #### [facility] [address] [place], [place] [address] FISH FOR BCR/ABL1 Collected: 08/15/2018 Status: F Source: [place] 11:05 AM [facility] REPOSITORY TYPE CODE TESTS RESULT OUT OF REFERENCE UNITS RANGE LAB BCRRES BCR (NOTE) Result Result Comment: FISH results will follow in [facility] surgical pathology case #[id number] when complete. Performed By: #### BCRFSH #### [facility] [address] [place] [address] BCR-ABL QUALITATIVE Collected: 08/15/2018 Status: F Source: [place] 11:05 [facility] REPOSITORY TYPE CODE TESTS RESULT OUT OF REFERENCE UNITS RANGE LAB BCRQLR BCR-ABL Qualitative (NOTE) Result Comment: Please refer to [facility] Surgical Pathology report, Performed By: #### BCRQL, NUCBUF #### [facility] [address] [place] [id number] DNA EXTRACTION (BUFFY) Collected: 08/15/2018 Status: F Source: [place] 11:05 [facility] REPOSITORY TYPE CODE TESTS RESULT OUT OF REFERENCE UNITS RANGE LAB NUCBC DNA Extration BC (NOTE) Result Comment: This specimen was received and successfully processed for future DNA purification should molecular testing be needed. Specimens will be available for 3 years from the date of collection. To order testing on this specimen for [facility] patients, please place an [facility] order for DNA and RNA Extractions for Clinical Testing ([id number]). To order testing for patients outside of the [facility] system, please request DNA and RNA Extraction for Clinical Testing, order code [id number]. If additional paperwork is required for testing, please send completed forms via secure email to . Performed By: #### BCRQL, NUCBUF #### [facility] [address] [id number] ALL B CELL MRD Collected: 08/15/2018 Status: F Source: [place] 11:05 [facility] REPOSITORY TYPE CODE TESTS RESULT OUT OF REFERENCE UNITS RANGE LAB BMRDR View ALL B results in Cell MRD Scanned Documents link when available. Performed By: #### BMRD #### [facility] [address] [id number] SURGICAL PATHOLOGY Observed: 08/15/2018 Status: C Source: [place] 11:05 AM [facility] REPOSITORY ADDITIONAL PROCEDURES PRESENT Specimen originated from [facility] Specimen #: [id number] Submitting Physician: HORACE HOANG MD FINAL DIAGNOSIS BONE MARROW ASPIRATE, TOUCH PREPARATION, CLOT SECTION, CORE BIOPSY AND PERIPHERAL BLOOD (A-C): - ACUTE MYELOID LEUKEMIA, SEE COMMENT. COMMENT: Further subclassification requires correlation with clinical presentation and with pending molecular and cytogenetic studies. 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 PERIPHERAL BLOOD: CBC (08/15/18): WBC 7.62 k/uL; Hgb 7.7 g/dL; MCV 93.9 fL; RDW 18%; Plts 29 k/uL Differential (%): Segs 3; Lymphs 30; Monos 0; Eos 0; Baso 0; Blasts 67 Morphology/Interpretation: Marked increase in circulating blasts, characterized by intermediate size, round to irregular nuclear borders, fine chromatin, often prominent nucleoli and scant to moderate cytoplasm with occasional Saroj rods. Normocytic anemia with anisocytosis; thrombocytopenia and neutropenia. BONE MARROW ASPIRATE Normal % (0-2) 39 % [...] evaluation. Megakaryocytes: Dysmegakaryopoiesis, with occasional small forms and forms with multiple nuclei. Erythropoiesis: Maturation, with dyserythropoiesis. Granulopoiesis: Full maturation. Other: Blasts are increased, with morphology as described in peripheral blood, except that Saroj rods are not as well characterized. BONE MARROW BIOPSY: Adequacy: Adequate. Cellularity: Increased (greater than 95%). ME ratio: Increased. Hematopoiesis: Increased mononuclear cells compatible with blasts, with diminished maturing trilineage hematopoiesis. Megakaryocytes: Present. Megakaryocyte morphology: Some small forms and forms with multiple nuclei are present. Lymphoid infiltrate: None. Bone trabeculae: Normal. CLOT SECTION: Marrow particles: Many. Morphology: Similar to biopsy. Cytochemistry stains performed on the aspirate smear (myeloperoxidase, nonspecific esterase) show that a significant population of blasts is positive for myeloperoxidase. Blasts are largely negative for non-specific esterase, and non-specific esterase positive cells represent less than 10% of cellularity.. ANCILLARY TESTS: Flow cytometry: Performed on peripheral blood. Cytogenetics: Pending. FISH: PML/ROBERT Molecular: Buffy coat stored. DB/db 08/18/2018 Joseph James M.D. (Electronic Signature) SPECIMEN SUBMITTED A: BONE MARROW, ASPIRATE LPIC B: BONE MARROW, BIOPSY LPIC C: BONE MARROW, CLOT LPIC ADDITIONAL PROCEDURE(S) CYTOGENETICS Date Ordered: 08/15/2018 Date Reported: 09/09/2018 Procedure Results and Interpretation (NOTE) Performing Pathologist: Dr. Shant Ledesma MD Interpretation: Lab Analysis No: [id number] Doctor/Pathologist: Natalya/Erika Surgical Pathology No: [id number] Clinical diagnosis: Pancytopenia Specimen Type: Bone Marrow [...] Pathologist Interpretation: Shant Ledesma MD Performed by [facility], [address] 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 Procedure Pathologist: Joseph James M.D. Electronic Signature FISH for BCR/ABL1 Date Ordered: 08/15/2018 Date Reported: 08/18/2018 Procedure Results and Interpretation FISH for t(9;22) BCR/ABL1 Rearrangement Sample Type: Bone Marrow Number of nuclei scored: 200 RESULT: Anomaly Result Reference Range BCR/ABL1 0% (0-2%) INTERPRETATION: A BCR/ABL1 rearrangement was not detected. Quantitative RT- PCR studies are suggested for routine monitoring of minimal residual disease. Clinical correlation is suggested. METHODOLOGY: The dual color, dual fusion BCR (22q11.2) and ABL1 (9q34) probe ([employer], [place], [place]) was used in this interphase FISH assay to detect the presence of the [place] chromosome. This test should not be used for the detection of minimal residual disease. Pathologist Interpretation: Dorothy Kraft M.D., PhD. ANALYTE SPECIFIC REAGENT (ASR) DISCLAIMER This test was developed and its performance characteristics determined by [facility] ([facility]). It has not been cleared or approved by the FDA. -[facility] is regulated under CLIA as qualified to perform high-complexity testing. This test is used for clinical purposes. It should not be regarded as investigational or for research. MC/kg 08/18/2018 Procedure Pathologist: Dorothy Kraft M.D., Ph.D. Electronic Signature BCR-ABL QUALITATIVE MULTIPLEX RT-PCR Date Ordered: 08/15/2018 Date Reported: 08/23/2018 Procedure Results and Interpretation BCR/ABL1 RT-PCR, QUALITATIVE Specimen type: Bone marrow Result: BCR/ABL1 fusion transcripts are NOT DETECTED Interpretation: RT-PCR studies are negative for BCR/ABL1 fusion transcripts. For more sensitive residual disease detection in patients with a history of BCR/ABL1 positive chronic myeloid leukemia or acute lymphoblastic leukemia, please order BCR/ABL1 p210 RT-PCR, Quantiative or BCR/ABL1 p190 RT-PCR, Quantitative. Methodology: RNA was purified from this sample, and cDNA prepared by reverse practicing urologist. Multiplex RT-PCR studies were performed using fluorescently labeled primers for BCR/ABL1 fusion transcripts including p210 (e13a2, e14a2, e13a3, e14a3), p190 (e1a2, e1a3), p230 (e19a2) and e6a2 isoforms. As an amplification control, primers for wild-type BCR are also included. PCR products are analyzed by capillary electrophoresis. The limit of detection of this assay is approximately 1% BCR/ABL1 normalized copy numbers (BCRABL1/ABL1). This test was developed and its performance characteristics determined by [facility] ([facility]). It has not been cleared or approved by the FDA. -[facility] is regulated under CLIA as qualified to perform high-complexity testing. This test is used for clinical purposes. It should not be regarded as investigational or for research. As Reviewed by: Dorothy De Oliveira M.D. EDITH/girish 08/21/2018 Procedure Pathologist: Dorothy De Oliveira M.D.. Electronic Signature HN FLT3 ITD Mutation Analysis Date Ordered: 08/15/2018 Date Reported: 08/18/2018 Procedure Results and Interpretation Sample Type: Bone Marrow Result FLT3 internal tandem duplication (ITD) mutation: NOT DETECTED Comment: FLT3/ITD is found in ~20-30% of adult patients and in ~5-12% of infants and children with acute myeloid leukemia (AML). FLT3/ITD are most often associated with a normal karyotype, t(15;17), and t(6;9). FLT3/ITD is associated with leukocytosis and a poor prognosis in both children and adults. In cytogenetically normal AML, FLT3/ITD has been associated with a poor prognosis. FLT3 mutation status has been reported to change between diagnosis and relapse; this may relate to the instability of FLT3 mutations. Method: DNA is isolated from the specimen provided. Regions of the FLT3 tyrosine kinase receptor gene are subjected to the polymerase chain reaction (PCR) using fluorescently labeled forward PCR primers. PCR products are analyzed by capillary gel electrophoresis for in-frame length mutations (ITD mutations). This assay can detect ITD mutant alleles which represent ~5-10 % of the total alleles. The ITD ratio is calculated as the area under the curve of the ITD signal to the area under the curve of the wild type signal. Limitations: Due to the diversity of potential ITD mutations, standardized calibration material is not available and calculated ITD peak ratios may therefore not be directly comparable across laboratories. As PCR efficiency varies with the size of the insertion mutation, calculated peak ratios may not necessarily correlate with percentage of mutant alleles. ITD ratio information should be interpreted with caution, in conjunction with other cytogenetic and molecular findings to assess prognosis within myeloid neoplasms. As Reviewed by: Dorothy De Oliveira M.D. EDITH/cp 08/18/2018 References: 1. Lolita MP, Sonido P, Tianewi E, et al. Mutational landscape of AML with normal cytogenetics: biological and clinical implications. Blood Rev.2013;27:13-22. 2. Fede WALKER, Domi M, Devendra ME, et al. Prognostic relevance of integrated genetic profiling in acute myeloid leukemia. N Engl J Med. 2012 Feb 06;366 (12):1079-89. 3. Matheus Charles, Carl E, Radha Marroquin,. et al. Diagnosis and management of AML in adults: 2017 ELN recommendations from an international expert panel. Blood 129, 851232 (2017). This test was developed and its performance characteristics determined by [facility] ([facility]). It has not been cleared or approved by the FDA. [facility] is regulated under CLIA as qualified to perform high-complexity testing. This test is used for clinical purposes. It should not be regarded as investigational or for research. Procedure Pathologist: Dorothy De Oliveira M.D.. Electronic Signature FISH FOR PML/ROBERT Date Ordered: 08/15/2018 Date Reported: 08/18/2018 Procedure Results and Interpretation FISH for t(15;17) PML/Robert Translocation Sample Type: Bone Marrow Number of nuclei scored: 200 RESULT: Anomaly Result Reference Range (Bone marrow) PML/ROBERT 0% (0-3%) INTERPRETATION: Interphase fluorescence in situ hybridization studies are negative for a PML/ROBERT rearrangement. METHODOLOGY: The dual color dual fusion PML (15q22) and ROBERT (17q21) probes ([employer], [place], [place]) were used in this interphase FISH assay to detect the presence of the t(15;17) chromosome translocation. This result does not exclude and should not be used for detection of minimal residual disease. Pathologist Interpretation: Dorothy Kraft M.D., PhD. ANALYTE SPECIFIC REAGENT (ASR) DISCLAIMER This test was developed and its performance characteristics determined by [facility] ([facility]). It has not been cleared or approved by the FDA. [facility] is regulated under CLIA as qualified to perform high-complexity testing. This test is used for clinical purposes. It should not be regarded as investigational or for research. MC/kg 08/18/2018 Procedure Pathologist: Dorothy Kraft M.D., Ph.D. Electronic Signature CLINICAL DATA ACUTE LEUKEMIA GROSS DESCRIPTION A. Received are air-dried bone marrow aspirate smears. Submitted for light microscopy. B. Received in zinc formalin are three segments of cylindrical tissue aggregating to 2.7 x 0.2 x 0.2 cm, delarosa-red and of a firm consistency. Totally submitted in formalin in one cassette after decalcification. C. Received in zinc formalin are multiple segments of red, hemorrhagic material aggregating to 3.0 x 2.2 x 0.6 cm. Totally submitted in one cassette. Gross examination performed at [facility], [address] [place] [address] FFS 08/16/2018 12:53:58 AM Date of Report: 08/19/2018 Date of Procedure: 08/15/2018 Date of Receipt: 08/15/2018 Submitted by: HORACE HOANG MD Location: G111 Diagnostic interpretation performed at [facility], [address] [place] [address]. CHROMOSOME BM Collected: 08/15/2018 Status: F Source: [place] 11:05 AM [facility] REPOSITORY TYPE CODE TESTS RESULT OUT OF REFERENCE UNITS RANGE LAB CRBM Chromosome (NOTE) Analysis Result Comment: Performing Pathologist: Dr. Shant Ledesma MD Interpretation: Lab Analysis No: [id number] Doctor/Pathologist: Natalya/Erika Surgical Pathology No: [id number] Clinical diagnosis: Pancytopenia Specimen Type: Bone Marrow [...] Pathologist Interpretation: Shant Ledesma MD Performed by [facility], [id number] [place] [address]. [place] [id number] Toll free: Performed By: #### [facility] #### [place] [id number] [place] [address] HEM NEPL NGS PNL Collected: 08/15/2018 Status: F Source: [place] BM 11:05 AM [facility] REPOSITORY TYPE CODE TESTS RESULT OUT OF REFERENCE UNITS RANGE LAB HNMNG Hem Jonah (NOTE) NGS Pnl BM Result Comment: Please see linked document for full results. Performed By: #### [facility] #### [place] [address] B-ALL FUS DET PANEL Collected: 08/15/2018 Status: F Source: [place] 11:05 AM [facility] REPOSITORY TYPE CODE TESTS RESULT OUT OF REFERENCE UNITS RANGE LAB JEWEL SWANSON, Cancelled by Interp clinician Result Comment: Per performing lab. [place] Account Credited Performed By: #### [facility] #### [place] [address] NURSING PROG Observed: 08/15/2018 Status: COMPLETED Source: [place] 10:53 AM [facility] REPOSITORY HNO ID: [id number] Author: Sharon (Madelaine) Ed, MADELAINE Service: (none) Author Type: Registered Nurse Type: Nursing Progress Note Filed: 08/15/2018 10:54 AM Note Text: Nursing Progress Note Patient Name: Tari Black Patient Location: [place] [address] Daily Note: 1030: pt c/o distention, urgency to void and discomfort. Prior to BMBx, this RN along with RN Sarina goodwined pt. Pt's output was 700cc. Will continue to monitor. This note was completed by: Sharon Ward, RN NUTRITION Observed: 08/15/2018 Status: COMPLETED Source: [place] 9:25 AM [facility] REPOSITORY HNO ID: [id number] Author: Mechelle Ho) Reggie Service: Nutrition Therapy Author Type: Registered Dietitian Type: Nutrition Filed: 08/15/2018 12:46 PM Note Text: NUTRITION THERAPY INITIAL ASSESSMENT SERVICE DATE: 08/15/2018 SERVICE TIME: 929 RECOMMENDED MALNUTRITION DIAGNOSIS: NO MALNUTRITION IDENTIFIED NUTRITION CARE PLAN: Problem, Etiology and Signs/Symptoms: Suboptimal oral intake related to illness as evidenced by reports of insufficient oral intake over the past 3 weeks. Intervention: Continue Regular diet Provide Ensure Enlive x 1 daily .Check acceptance. Monitor oral intakes Monitor and Evaluation: Goal: Meet >75% of estimated needs Monitor fluid/electrolyte balance Monitor labs, I/Os, vital signs, weight Discharge Nutrition Recommendations: Diet: Regular Supplements: patient's preference Per HPI: Patient is a 73 year old female admitted with concern for acute leukemia. PMH: HTN Current Diet Order DIET REGULAR Lines and Drains: Peripheral 08/14/18 1630 Right Antecubital 22 Gauge (Active) Nutritional Intake Prior to Admission: <75% estimated energy needs over the past 3 week(s). Seen at bedside and reports decline in appetite over the past 3 weeks, eating smaller portions. Intermittent nausea but no vomiting. Current oral intake is fair--receptive to trial Ensure Enlive x 1 daily. GI symptoms: nausea Nutrition Abdominal Exam: and not assessed ANTHROPOMETRICS Height: 167.5 cm (5' 5.95) (verified by Piper RN) Admission Weight: 97.1 kg (214 lb 1.1 oz) (verified by Piper RN) Current Weight: 96.5 kg (212 lb 11.9 oz) Body mass index is 34.4 kg/m?. class 2 obesity Weight has decreased by 3 kg over 3 weeks representing 3 % weight change potentially clinically significant but does not meet criteria to support a malnutrition diagnosis Last Wt 08/15/18 : 96.5 kg (212 lb 11.9 oz) Dosing Weight: 96.5 kg [place] weight: 59 kg Resting Metabolic Rate: 1480 Estimated kilocalorie needs: 0613-8559 kilocalories determined by 15-20 kcal/kg dosing wt/d Estimated protein needs: 90 grams determined by 1.5 g/kg Dosing weight Estimated fluid needs: 0185-6042 milliliters based on 1 mL per kcal NUTRITION FOCUSED PHYSICAL EXAM: Subcutaneous Fat Loss Orbital No fat loss Triceps No fat loss Mid-axillary at the iliac crest No fat loss Muscle Loss Locations: Temporalis No muscle loss Pectoralis No muscle loss Deltoids No muscle loss Interosseous No muscle loss Latissimus dorsi, trapezius No muscle loss Quadriceps No muscle loss Gastrocnemius No muscle loss Potential micronutrient deficiency revealed in: No deficiency identified Edema: Yes Lower extremities Mild 1+ Ascites: No Assessment of Functional Status: Functional capacity is unrelated to nutrition status Temperature Max in 24 hours: Temp (24hrs), Av ?C (98.6 ?F), Min:36.8 ?C (98.2 ?F), Max:37.2 ?C (99 ?F) BP 124/56 Pulse 95 Temp 36.8 ?C (98.2 ?F) (Oral) Resp 16 Ht 167.5 cm (5' 5.95) Wt 96.5 kg (212 lb 11.9 oz) SpO2 96% BMI 34.40 kg/m? Recent Labs 08/15/18 0427 GLUC 129* BUN 14 CREAT 0.72 NA 138 K 4.3 CHLOR 102 CO2 25 ALB 3.8* P 2.5* HB 7.2* HCT 20.8* WBC 7.11 Potential Signs of Inflammation: chronic condition ALLERGIES No Known Allergies Current Facility-Administered Medications: oxyCODONE IR 5-10 mg tab(s) (ROXICODONE) 5-10 mg ORAL q 4 H PRN lisinopril 20 mg tab(s) (ZESTRIL, PRINIVIL) 20 mg ORAL DAILY allopurinol 300 mg tab(s) (ZYLOPRIM) 300 mg ORAL DAILY acyclovir 400 mg tab(s) (ZOVIRAX) 400 mg ORAL BID potassium chloride iv piggyback 20 mEq/100 mL 20 mEq INTRAVENOUS PRN Or potassium chloride ER 40-60 mEq tab(s) (K-DUR, KLOR-CON) 40- 60 mEq ORAL DAILY PRN magnesium sulfate in sterile water 4 g iv piggyback 4 g INTRAVENOUS PRN salt and soda 10 mL oral liquid 10 mL ORAL QID nystatin 5 mL CUP (MYCOSTATIN) 5 mL ORAL QID [id number]-ibuosa-rypkiimgy 10 mL oral liquid (BMX 1:1:1) 10 mL ORAL q 4 H PRN 0.9% NaCl 3-5 mL 3-5 mL INTRAVENOUS q 12 H acetaminophen 650 mg tab(s) (TYLENOL) 650 mg ORAL q 4 H PRN diphenhydrAMINE 25 mg (BENADRYL) 25 mg ORAL q 6 H PRN NaCl 0.9% iv infusion 125 mL/hr INTRAVENOUS CONTINUOUS ondansetron (PF) 8 mg injection (ZOFRAN) 8 mg INTRAVENOUS q 8 H PRN lactulose 20 g CUP (DUPHALAC, CONSTULOSE) 20 g ORAL BID Date 08/14/18699 - 08/15/18 0659 08/15/18699 - 08/16/18 0659 Shift 1776-6135 9045-7438 9929-2316 24 Hour Total 8912-0399 5865-1489 2174-9754 24 Hour Total I N T A K E PO 120 120 PO 120 120 Supplements (mL) 0 0 IV 1000 1000 990 990 NS 0.9% 1000 1000 990 990 Blood Products 1 1 Packed Red Blood Cells Number of Units 1 1 Other Amount Wasted PRBC 0 mL 0 mL Shift Total 1000 1000 1111 1111 O U T P U T Urine 975 975 900 900 Void (ml) 975 975 200 200 Straight cath (ml) 700 700 Emesis 0 0 Emesis (ml) 0 0 # of BMs Number of BMs 0 x 0 x 0 x 0 x Shift Total 975 975 900 900 Weight (kg) 97.1 97.1 97.1 97.1 96.5 96.5 96.5 96.5 Vitamin and Mineral Labs in the past year:No results for input(s): CHROMIUM, COPPER, MANGANESE, SELENIUM, VITAMINA, VITB1, VITB2, VITB6, B12, METHYLMAL, VITD25, VITAMINE, VITAK, ZINC, TIBC, FE, KAL in the last 8784 hours. MNT Billing Type: Initial Assess/15 min 4 units SIGNATURE: Mechelle Paredes MS RD LD CNS FAND PATIENT NAME: Tari Black DATE: August 15, 2018 TIME: 9:25 AM PAGER: [phone] PROGRESS Observed: 08/15/2018 Status: COMPLETED Source: [place] 7:44 AM [facility] REPOSITORY HNO ID: [id number] Author: Horace Hoang Service: Hematology/Oncology Author Type: Physician Type: Progress Notes Filed: 08/15/2018 2:08 PM Note Text: ONCOLOGY LEUKEMIA PROGRESS NOTE SERVICE DATE: 08/15/2018 SERVICE TIME: 1000 Subjective INTERIM HISTORY - Afebrile; VSS - BMBX today REVIEW OF SYSTEMS GENERAL: No fever or chills. HEENT: + intermittent headaches; No nose bleed, mouth pain or sore throat. RESPIRATORY: No cough or shortness of breath. CARDIOVASCULAR: No chest pain, palpitations or leg swelling. GI: Eating, drinking and taking pills adequately; no difficulty swallowing, abdominal discomfort, blood in stools, black stools or diarrhea; + rectal pain : No discomfort with voiding or gross blood in urine. MUSCULOSKELTAL: No pain. SKIN: No rash or itching. VENOUS ACCESS: Peripheral. No concerns. Objective PHYSICAL EXAM VITALS: Temp (24hrs), Av.1 ?C (98.7 ?F), Min:36.8 ?C (98.3 ?F), Max:37.2 ?C (99 ?F) BP 100/52 Pulse 91 Temp 37.3 ?C (99.2 ?F) (Oral) Resp 16 Ht 167.5 cm (5' 5.95) Wt 96.5 kg (212 lb 11.9 oz) SpO2 97% BMI 34.40 kg/m? INTAKE AND OUTPUT Intake/Output Summary (Last 24 hours) at 08/15/18 1329 Last data filed at 08/15/18 1136 Gross per 24 hour Intake 2111 ml Output 1875 ml Net 236 ml GENERAL: No acute distress; alert and oriented x 3. HEENT: No mucositis. LUNGS: Clear to auscultation; no wheezing, rhonchi or rales. HEART: Regular rhythm; normal rate; no murmur. ABDOMEN: Bowel sounds present; soft, non-tender and not distended. EXTREMITIES: No edema. SKIN: No rash. VENOUS ACCESS: No erythema, tenderness or drainage. MEDICATIONS Current hospital medications: oxyCODONE IR 5-10 mg tab(s) (ROXICODONE) 5-10 mg ORAL q 4 H PRN lisinopril 20 mg tab(s) (ZESTRIL, PRINIVIL) 20 mg ORAL DAILY allopurinol 300 mg tab(s) (ZYLOPRIM) 300 mg ORAL DAILY acyclovir 400 mg tab(s) (ZOVIRAX) 400 mg ORAL BID potassium chloride iv piggyback 20 mEq/100 mL 20 mEq INTRAVENOUS PRN potassium chloride ER 40-60 mEq tab(s) (K-DUR, KLOR-CON) 40- 60 mEq ORAL DAILY PRN magnesium sulfate in sterile water 4 g iv piggyback 4 g INTRAVENOUS PRN salt and soda 10 mL oral liquid 10 mL ORAL QID nystatin 5 mL CUP (MYCOSTATIN) 5 mL ORAL QID jimzqztxodRZKFA-ojxbex-alureftyo 10 mL oral liquid (BMX 1:1:1) 10 mL ORAL q 4 H PRN 0.9% NaCl 3-5 mL 3-5 mL INTRAVENOUS q 12 H acetaminophen 650 mg tab(s) (TYLENOL) 650 mg ORAL q 4 H PRN diphenhydrAMINE 25 mg (BENADRYL) 25 mg ORAL q 6 H PRN NaCl 0.9% iv infusion 125 mL/hr INTRAVENOUS CONTINUOUS ondansetron (PF) 8 mg injection (ZOFRAN) 8 mg INTRAVENOUS q 8 H PRN lactulose 20 g CUP (DUPHALAC, CONSTULOSE) 20 g ORAL BID LABORATORY DATA Recent Labs 08/15/1842608/14/18212908/14/18 1630 WBC 7.11 7.04 7.62 RBC 2.22* 2.28* 2.44* HB 7.2* 7.5* 7.7* HCT 20.8* 21.6* 22.9* PLT 22* 25* 25* MCV 93.7 94.7 93.9 MCH 32.4 32.9 31.6 MCHC 34.6 34.7 33.6 RDWCV 17.9* 17.8* 18.0* MPV 11.1 10.7 11.5 NEUTP 3.5 3.0 3.0 ABSNEUT 0.25* 0.21* 0.23* ABLAST 67.3* 58.0* 67.0* LYMPHP 29.2 39.0 30.0 MONOP 0.0 0.0 0.0 EODINP 0.0 0.0 0.0 BASOP 0.0 0.0 0.0 ABSMONO 0.00 0.00 0.00 ABSEOSIN 0.00 0.00 0.00 ABSBASO 0.00 0.00 0.00 Recent Labs 08/15/18 1225 08/15/1842608/14/18 21308/14/18 1630 NA -- 138 134* 135* K -- 4.3 4.5 5.5* CHLOR -- 102 100 101 CO2 -- 25 23 24 CREAT -- 0.72 0.79 0.76 BUN -- 14 16 16 GLUC -- 129* 192* 120* P -- 2.5* 2.1* 2.8 TPROT -- 6.9 6.8 7.2 ALB -- 3.8* 3.9 4.2 CA -- 10.0 9.8 10.4* ALKPHOS -- 64 65 61 TBILI -- 1.3 1.3 1.5* AST -- 19 17 51* ALT -- 14 14 17 URICACID -- 4.0 4.6 4.9 PTSEC 10.8 -- -- 10.8 INR 1.0 -- -- 1.0 APTT 23.8 25.1 23.9 22.0* CULTURES IMAGING PROCEDURES DATA: Diagnostic tests reviewed for today's visit: Most recent labs and imaging results. Assessment/Plan Active Hospital Problems Diagnosis Date Noted - Pancytopenia (HCC) 08/14/2018 Priority: A Overview Note: Tari Black is a 73 year old female with PMH of HTN and arthritis being admitted due to concern for acute leukemia after going to her PCP for upset stomach, headaches, and fatigue (CBC showing pancytopenia). - CXR No acute findings, EKG NSR - mIVF, allopurinol, TLS labs q 8 hours - Plan for bone marrow biopsy today 08/15 (10 AM) - Transfuse LR + IR blood products for Hgb <8; Plt <10 - Transfuse RBCs today 08/15/2018 - Headache Priority: B Overview Note: - CT brain 08/14- Negative for acute findings - PRN oxy - Nausea Priority: C Overview Note: - Zofran PRN - Immunodeficiency (HCC) 08/14/2018 Priority: D Overview Note: - ppx acyclovir - HTN (hypertension) 08/14/2018 Priority: E Overview Note: - Continue home lisinopril - Electrolyte imbalance risk Priority: F Overview Note: - Replete electrolytes per protocol - mIVF NS @ 100cc/hr - Anemia Priority: G Overview Note: Secondary to suspected acute leukemia - Transfuse LR + IR blood products for Hgb < 8 - Transfuse RBCs today 08/15/2018 - Thrombocytopenia (HCC) Priority: H Overview Note: Secondary to suspected acute leukemia - Transfuse LR + IR blood products for PLT <10 - Rectal pain Priority: I Overview Note: Rectal pain x 3 days per patient - No visible signs of hemorrhoids or skin breakdown - Colorectal Surg consulted; Appreciate recs - PRN oxy - Hospital discharge follow-up Overview Note: - Following Dr Hoang Medication and Non-Pharmacologic VTE Prophylaxis/Anticoagulants 08/14/18 151 vte pharmacologic prophylaxis contraindicated (fl,oh) 08/14/18 1515 vte non-pharmacologic prophylaxis contraindicated (fl,oh) 08/14/18 1515 activity - mobilize patient (wi,oh) SIGNATURE: Harini Cassidy APRN.CNP PATIENT NAME: Tari Black DATE: August 15, 2018 TIME: 7:44 AM PAGER/CONTACT #: [phone] HEMATOLOGY/MEDICAL ONCOLOGY STAFF: TEACHING PHYSICIAN NOTE OF PERSONAL INVOLVEMENT IN CARE I have reviewed the progress note obtained and documented by the licensed independent practitioner and I personally participated in the murphy components. I have discussed the case and management of the patient's care with the licensed independent practitioner. The following comments revise or confirm relevant murphy components of the licensed independent practitioner's note. IMPRESSION/PLAN: Suspected acute leukemia. Patient admitted for induction chemotherapy. The [facility] conducts standard manufacturing quality engineer validation for all diagnosed patients new to the cancer institute and this will also be performed during this admission. Had BMBx today. Flow cytometry results awaited. Supportive care and transfusion support. ? Horace Hoang MD PhD MPH Associate Staff Hematologic Oncology and Blood Disorders Pager [phone] Date of service: 08/15/2018 FIBRINOGEN Collected: 08/15/2018 Status: F Source: [place] 4:27 AM [facility] REPOSITORY TYPE CODE TESTS RESULT OUT OF REFERENCE UNITS RANGE LAB FIBCT 200-400 mg/dL High Fibrinogen 450 Performed By: #### FIBCT, PTT, LD6, CMP, PHOS, URIC, CBCDIF #### [facility] [address] [place], [place] [address] APTT Collected: 08/15/2018 Status: F Source: [place] 4:27 AM [facility] REPOSITORY TYPE CODE TESTS RESULT [...] laboratory APTT reagent in use throughout the [facility]. Performed By: #### FIBCT, PTT, LD6, CMP, PHOS, URIC, CBCDIF #### [facility] [address] [place], [place] [address] LD Collected: 08/15/2018 Status: F Source: [facility] 4:27 AM [facility] REPOSITORY TYPE CODE TESTS RESULT OUT OF RANGE REFERENCE UNITS LAB LD 135-214 U/L High LD 263 Performed By: #### FIBCT, PTT, LD6, CMP, PHOS, URIC, CBCDIF #### [facility] [address] [place], [place] [address] COMP METABOLIC PANEL Collected: 08/15/2018 Status: F Source: [place] 4:27 AM [facility] REPOSITORY TYPE CODE TESTS RESULT OUT OF REFERENCE UNITS RANGE LAB TP 6.3-8.0 g/dL Protein, Total 6.9 LAB ALB 3.9-4.9 g/dL Low Albumin 3.8 LAB CA 8.5-10.2 mg/dL Calcium, Total 10.0 LAB TBIL 0.2-1.3 mg/dL Bilirubin, Total 1.3 LAB ALKP 34-123 U/L Alkaline Phosphatase 64 LAB AST 13-35 U/L AST 19 LAB GLU 74-99 mg/dL Glucose High 129 Result Comment: The [place] Diabetes Association (ADA) provides guidance for cutoff values for fasting glucose and random glucose. The ADA defines fasting as no caloric intake for at least 8 hours. Fas ting plasma glucose results between 100 to 125 [...] Standards of Medical Care in Diabetes 2016, [place] Diabetes Association. Diabetes Care. 2016.39(Suppl 1). LAB [...] PTT, LD6, CMP, PHOS, URIC, CBCDIF #### [facility] [address] [place], [place] [id number] PHOSPHORUS Collected: 08/15/2018 Status: F Source: [place] 4:27 AM [facility] REPOSITORY TYPE CODE TESTS RESULT OUT OF REFERENCE UNITS RANGE LAB PHOS 2.7-4.8 mg/dL Low Phosphorus 2.5 Performed By: #### FIBCT, PTT, LD6, CMP, PHOS, URIC, CBCDIF #### [facility] [address] [place], [place] [address] URIC ACID Collected: 08/15/2018 Status: F Source: [place] 4:27 AM [facility] REPOSITORY TYPE CODE TESTS RESULT OUT OF RANGE REFERENCE UNITS LAB URIC 2.5-6.6 mg/dL Uric Acid 4.0 Performed By: #### FIBCT, PTT, LD6, CMP, PHOS, URIC, CBCDIF #### [facility] [address], [place] [address] CBC AND DIFFERENTIAL Collected: 08/15/2018 Status: F Source: [place] 4:27 AM [facility] REPOSITORY TYPE CODE TESTS RESULT OUT OF REFERENCE UNITS RANGE LAB WBC 3.70-11.00 k/uL WBC 7.11 LAB RBC 3.90-5.20 m/uL Low RBC 2.22 LAB HGB 11.5-15.5 g/dL Low Hemoglobin 7.2 LAB HCT 36.0-46.0 % Low Hematocrit 20.8 LAB MCV 80.0-100.0 fL MCV 93.7 LAB MCH 26.0-34.0 pG MCH 32.4 LAB MCHC 30.5-36.0 g/dL MCHC 34.6 LAB RDWCV 11.5-15.0 % RDW-CV High 17.9 LAB PLTCT 150-400 k/uL Low Platelet Count 22 Result Comment: Result checked and verified No clot detected. LAB MPV 9.0-12.7 fL MPV 11.1 LAB ANEUT % Neut% 3.5 LAB AANEUT 1.45-7.50 k/uL Abs Neut 0.25 Low LAB ALYMP % Lymph% 29.2 LAB AALYMP 1.00-4.00 k/uL Abs Lymph 2.08 LAB AMONO % [place]% 0.0 LAB AAMONO <0.87 k/uL Abs [place] 0.00 LAB AEOS % Eosin% 0.0 LAB AAEOS <0.46 k/uL Abs Eosin 0.00 LAB ABASO % Baso% 0.0 LAB AABASO <0.11 k/uL Abs Baso 0.00 LAB ABLAST 0 % Blast% 67.3 High LAB ANIIMI Anisocytosis Present LAB AUEIMI Saroj Rods Present LAB OVAIMI Ovalocytes Few LAB PLTEST Platelet Estimate Platelet estimate decreased LAB DTYP DTYPE Manual Diff Performed By: #### FIBCT, PTT, LD6, CMP, PHOS, URIC, CBCDIF #### [facility] [address] [place], [place] [address] SURGICAL PATHOLOGY Observed: 08/15/2018 Status: F Source: [place] 12:00 AM [facility] REPOSITORY PROCEDURE REPORT Specimen originated from [facility] Specimen #: [id number] Submitting Physician: HARINI CASSIDY CNP SPECIMEN SUBMITTED A: PERIPHERAL BLOOD PROCEDURE(S) FLOW CYTOMETRY - ACUTE LEUKEMIA IMMUNOPHENOTYPING Date Ordered: 08/15/2018 Date Reported: 08/15/2018 Procedure Results and Interpretation Specimen type: Peripheral blood CBC (08/14/2018): WBC = 7.62 k/uL; Hgb = 7.7 g/dL; Plt = 29 k/uL Differential (%): Neutrophil: 3; Lymphocyte: 30; Monocyte: 0; Eosinophil: 0; Basophil: 0; Blast: 67 Morphology comments: Normocytic anemia with anisocytosis and ovalocytes. Thrombocytopenia. Neutropenia with increased circulating blasts. Blasts are intermediate in size with round to irregular nuclear borders, fine chromatin, scant to moderate cytoplasm, and identifiable nucleoli. Saroj rods are identified. Results: % total events Lymphocyte gate: 22 Granulocytic gate: 3 Monocytic gate: 0 Blast gate: 73 Viability: 100% Marker Normal Cell Result (Blast) Type CD2 T/NK cells Negative CD3 T-cells Negative CD4 T-cell subset Negative CD5 T-cells Negative CD7 T/NK-cells Negative CD8 T-cell subset Negative CD10 B-cell subset Negative CD11b Myeloid Negative CD13 Myeloid Positive CD14 Monocyte Negative CD16 Myeloid Negative CD56 T/NK cell Negative CD19 B-cell Negative CD20 B-cell Negative CD22 B-cell Negative CD33 Myeloid Positive CD34 Blast Negative CD38 Activation Positive CD45 Faith-leukocyte Positive CD64 Myeloid Positive (dim) CD65 Myeloid Negative CD117 Blast Positive HLADR Class II MHC Positive (dim) Interpretation: Flow cytometric analysis of the peripheral blood reveals that 73% of total events have the CD45 and side-scatter properties of blasts. The blasts are myeloid and express CD13, CD33, CD38, CD45, CD64 (dim), CD117, HLA-DR (dim). 22% of total events have the CD45 and side-scatter properties of lymphocytes and consist of a mixture of T-cells (81%;CD4:CD8 ratio = 3.2), NK cells (9%) and B-cells (11%). 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 Correlation with the clinical and marrow morphologic findings is suggested. ANALYTE SPECIFIC REAGENT (ASR) DISCLAIMER This test was developed and its performance characteristics determined by [facility] ([facility]). It has not been cleared or approved by the FDA. [facility] is regulated under CLIA as qualified to perform high-complexity testing. This test is used for clinical purposes. It should not be regarded as investigational or for research. Procedure Pathologist: Joseph James M.D. Electronic Signature CLINICAL DATA None provided. GROSS DESCRIPTION RECEIVED A 2 ML EDTA TUBE OF PERIPHERAL BLOOD LABELED TARI BLACK. ENTIRELY SUBMITTED FOR FLOW CYTOMETRY. Date of Report: Date of Procedure: 08/15/2018 Date of Receipt: 08/15/2018 Submitted: HARINI CASSIDY CNP Diagnostic interpretation performed at [facility], [address] [place] [address]. FIBRINOGEN Collected: 08/14/2018 Status: F Source: [place] 9:30 [facility] REPOSITORY TYPE CODE TESTS RESULT OUT OF REFERENCE UNITS RANGE LAB FIBCT 200-400 mg/dL High Fibrinogen 438 Performed By: #### FIBCT, PTT, CMP, PHOS, URIC, CBCDIF #### [facility] [address] [place] [address] APTT Collected: 08/14/2018 Status: F Source: [place] 9:30 [facility] REPOSITORY TYPE CODE TESTS RESULT [...] laboratory APTT reagent in use throughout the [facility]. Performed By: #### FIBCT, PTT, CMP, PHOS, URIC, CBCDIF #### [facility] [address] [place], [place] [address] COMP METABOLIC PANEL Collected: 08/14/2018 Status: F Source: [place] 9:30 PM [facility] REPOSITORY TYPE CODE TESTS RESULT OUT OF REFERENCE UNITS RANGE LAB TP 6.3-8.0 g/dL Protein, Total 6.8 LAB ALB 3.9-4.9 g/dL Albumin 3.9 LAB CA 8.5-10.2 mg/dL Calcium, Total 9.8 LAB TBIL 0.2-1.3 mg/dL Bilirubin, Total 1.3 LAB ALKP 34-123 U/L Alkaline Phosphatase 65 LAB AST 13-35 U/L AST 17 LAB GLU 74-99 mg/dL Glucose High 192 Result Comment: The [place] Diabetes Association (ADA) provides guidance for cutoff values for fasting glucose and random glucose. The ADA defines fasting as no caloric intake for at least 8 hours. Fas ting plasma glucose results between 100 to 125 [...] Standards of Medical Care in Diabetes 2016, [place] Diabetes Association. Diabetes Care. 2016.39(Suppl 1). LAB BUN 7-21 mg/dL BUN 16 LAB CRET 0.58-0.96 mg/dL Creatinine 0.79 LAB NA 136-144 mmol/L Sodium Low 134 LAB K 3.7-5.1 mmol/L Potassium 4.5 [...] FIBCT, PTT, CMP, PHOS, URIC, CBCDIF #### [facility] [address] [place], [place] [address] PHOSPHORUS Collected: 08/14/2018 Status: F Source: [place] 9:30 PM [facility] REPOSITORY TYPE CODE TESTS RESULT OUT OF REFERENCE UNITS RANGE LAB PHOS 2.7-4.8 mg/dL Low Phosphorus 2.1 Performed By: #### FIBCT, PTT, CMP, PHOS, URIC, CBCDIF #### [facility] [place] [address] URIC ACID Collected: 08/14/2018 Status: F Source: [place] 9:30 PM [facility] REPOSITORY TYPE CODE TESTS RESULT OUT OF RANGE REFERENCE UNITS LAB URIC 2.5-6.6 mg/dL Uric Acid 4.6 Performed By: #### FIBCT, PTT, CMP, PHOS, URIC, CBCDIF #### [address] [address] CBC AND DIFFERENTIAL Collected: 08/14/2018 Status: F Source: [place] 9:30 PM [facility] REPOSITORY TYPE CODE TESTS RESULT OUT OF REFERENCE UNITS RANGE LAB WBC 3.70-11.00 k/uL WBC 7.04 LAB RBC 3.90-5.20 m/uL Low RBC 2.28 LAB HGB 11.5-15.5 g/dL Low Hemoglobin 7.5 LAB HCT 36.0-46.0 % Low Hematocrit 21.6 LAB MCV 80.0-100.0 fL MCV 94.7 LAB MCH 26.0-34.0 pG MCH 32.9 LAB MCHC 30.5-36.0 g/dL MCHC 34.7 LAB RDWCV 11.5-15.0 % RDW-CV High 17.8 LAB PLTCT 150-400 k/uL Low Platelet Count 25 Result Comment: Result checked and verified Less than optimal volume of specimen received and tested. No clot detected. LAB MPV 9.0-12.7 fL MPV 10.7 LAB ANEUT % Neut% 3.0 LAB AANEUT 1.45-7.50 k/uL Abs Neut 0.21 Low LAB ALYMP % Lymph% 39.0 LAB AALYMP 1.00-4.00 k/uL Abs Lymph 2.75 LAB AMONO % [place]% 0.0 LAB AAMONO <0.87 k/uL Abs [place] 0.00 LAB AEOS % Eosin% 0.0 LAB AAEOS <0.46 k/uL Abs Eosin 0.00 LAB ABASO % Baso% 0.0 LAB AABASO <0.11 k/uL Abs Baso 0.00 LAB ABIMMG k/uL 0.21 ANC(includeSEG+BAN D) LAB ABLAST 0 % Blast% 58.0 High LAB ANIIMI Anisocytosis Present LAB OVAIMI Ovalocytes Few LAB PLTEST Platelet Estimate Platelet estimate decreased LAB DTYP DTYPE Manual Diff Performed By: #### FIBCT, PTT, CMP, PHOS, URIC, CBCDIF #### [facility] [address] [place], [place] [address] XR CHEST 2V FRONTAL/LAT Observed: 08/14/2018 Status: F Source: [place] 8:33 PM [facility] REPOSITORY * * *Final Report* * * DATE OF EXAM: Aug 14 2018 8:33PM SARAH [id number] - XR CHEST 2V FRONTAL/LAT / PROCEDURE REASON: Leukemia * * * * Physician Interpretation * * * * EXAMINATION: CHEST RADIOGRAPH (2 VIEW FRONTAL and LATERAL) CLINICAL HISTORY: Leukemia, MQ: XC2_5 Comparison: None RESULT: Lines, tubes, and devices: None. Lungs and pleura: Lungs are hypoinflated with no consolidation or mass lesion. Prominence of the lung markings in the perihilar and basilar regions is likely secondary to crowded vessels, given the low lung volume. This could limit the evaluation for subtle interstitial or bronchial abnormalities, especially in the medial aspect of the bases. No pleural effusion or pneumothorax. Cardiomediastinal silhouette: Heart within normal. Thoracic aorta is mildly tortuous. Other: . IMPRESSION: As above Flight Superintendent: PSCB Transcribe Date/Time: Aug 14 2018 10:28P Dictated by : DINORAH MANCIA MD This examination was interpreted and the report reviewed and electronically signed by: DINORAH MANCIA MD on Aug 14 2018 10:29PM EST [id number] CONFIRM BLOOD TYPE Collected: 08/14/2018 Status: F Source: [place] 6:00 PM [facility] REPOSITORY TYPE CODE TESTS RESULT OUT OF REFERENCE UNITS RANGE LAB %ABR O ABO/RH(D) NEGATIVE Performed By: #### CONABO #### [facility] [address] [place], [place] [address] NURSING PROG Observed: 08/14/2018 Status: COMPLETED Source: [place] 5:04 PM [facility] REPOSITORY HNO ID: [id number] Author: Piper (Rn) MADELAINE Robert Service: (none) Author Type: Registered Nurse Type: Nursing Progress Note Filed: 08/14/2018 6:53 PM Note Text: Nursing Progress Note Patient Name: Tari Black Patient Location: [place] [address]/[facility]18 Daily Note: 1500: pt arrived on unit via wheelchair, stable condition, supportive family at bedside. Assessments complete per flow sheets.VSS, height and weight verified with GISELLE Spivey. Pt oriented to room and unit. Falls risk assessment and plan complete, pt compliant. Pt c/o 5/10 dull headache behind the eyes. WINDOW DRAPER Kyara cartagena at bedside. 1630: 22g in R AC placed, labs drawn and sent, NS @ 100ml/hr initiated. 1745: hgb resulted 7.7, on-call MD notified. Con ABO drawn and sent. This note was completed by: Piper RobertMADELAINE CT BRAIN WO IVCON Observed: 08/14/2018 Status: F Source: [place] 5:04 PM [facility] REPOSITORY * * *Final Report* * * DATE OF EXAM: Aug 14 2018 5:04PM [facility] [place] [place] BRAIN WO IVCON / PROCEDURE REASON: Headache, acute, normal neuro exam * * * * Physician Interpretation * * * * EXAMINATION: CT BRAIN WO IVCON CLINICAL HISTORY: Headache, acute, normal neuro exam TECHNIQUE: Serial axial images without IV contrast were obtained from the vertex to the foramen magnum. MQ: CTBWO_3 CT Dose-Length Product (DLP): 706 mGy*cm CT Dose Reduction Employed: No dose reduction techniques were required COMPARISON: None. RESULT: Post-operative change: None. Acute change: No evidence of an acute infarct or other acute parenchymal process. Hemorrhage: No evidence of acute intracranial hemorrhage. Mass Lesion / Mass Effect: As seen on axial image 18 of series 2, there is increased soft tissue signal involving periventricular white matter at the lateral, ventral margin of the left lateral ventricle. This process measures 1.5 x 0.7 cm in AP and transverse diameter. 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 Confirmation with MRI is recommended to exclude infiltrative process. Chronic change: Scattered patchy foci of low attenuation are present within supratentorial white matter which is a nonspecific finding but likely represents mild microvascular ischemia. Parenchyma: There is mild prominence of cerebellar folia. The brain parenchyma is otherwise within normal limits for age. Ventricles: The ventricles are within normal limits of size and configuration for age. Paranasal sinuses and skull base: The visualized paranasal sinuses are grossly clear. The skull base and imaged soft tissues are unremarkable. IMPRESSION: No acute process. 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 However, nonurgent MRI confirmation is recommended to exclude infiltrative process. Flight Superintendent: PSCB Transcribe Date/Time: Aug 14 2018 5:06P Dictated by : ANT MURPHY MD This examination was interpreted and the report reviewed and electronically signed by: ANT MURPHY MD on Aug 14 2018 5:10PM EST [id number] ECG COMPLETE W Observed: 08/14/2018 Status: F Source: [place] INTERPRETATION 4:38 PM [facility] REPOSITORY NAME : TARI BLACK PID : [id number] : 1945 Gender : Female Race : ORD : [id number] Procedure Date : Aug 14 2018 16:38:06 Edit Date : Aug 15 2018 11:55:22 Diagnosis:NORMAL SINUS RHYTHM NORMAL ECG Confirmed by TAHMINA LOGAN M.D. ([id number]) on 08/15/2018 11:55:17 AM Ventricular Rate : 97 BPM Atrial Rate : 97 BPM P-R Interval : 184 ms QRS Duration : 84 ms Q-T Interval : 330 ms QTC Calculation(Bezet) : 419 ms P [place] : 25 degrees R [place] : 1 degrees T [place] : 6 degrees Test Reason : ALL Location : 17 : [place] [address] Overread By : TAHMINA LOGAN M.D. Edited By : TAHMINA LOGAN M.D. Referred By : , Acquired by : MEGGAN KHAN PROGRESS Observed: 08/14/2018 Status: COMPLETED Source: [place] 4:37 PM [facility] REPOSITORY HNO ID: [id number] Author: Yoandy Faustin (Rt) Service: Radiology Author Type: Scrap Preparer Type: Progress Notes Filed: 08/14/2018 4:58 PM Note Text: Radiology Service Progress Note PATIENT NAME: Tari Black DATE OF SERVICE: August 14, 2018 TIME: 4:37 PM PATIENT IDENTITY VERIFICATION COMPLETED USING TWO (2) METHODS: Patient confirmed name verbally and ID band matches.. PATIENT GENDER DATA: Female. status: : No status: NO. PATIENT RELEVANT IMPLANT DATA REVIEWED: Yes RADIOLOGY DEPARTMENT: CT; Exam(s) Completed: Brain PERIPHERAL IV DATA: Not applicable SIGNED BY: RT Mery August 14, 2018 4:37 PM LD Collected: 08/14/2018 Status: F Source: [facility] 4:30 PM [facility] REPOSITORY TYPE CODE TESTS RESULT OUT OF RANGE REFERENCE UNITS LAB LD 135-214 U/L High LD 674 Result Comment: Results may be falsely increased due to interference by hemolysis. Suggest reorder as clinically indicated. Performed By: #### LD6, PTT, FIBCT, CMP, PHOS, URIC, HIV12C, HREMOP, CBCDIF, STFREV #### [facility] [address] [place] [id number] APTT Collected: 08/14/2018 Status: F Source: [place] 4:30 PM [facility] REPOSITORY TYPE CODE TESTS RESULT OUT OF RANGE REFERENCE UNITS LAB APTT 23.0-32.4 sec Low APTT 22.0 Result Comment: Unfractionated Heparin Therapeutic [...] laboratory APTT reagent in use throughout the [facility]. Performed By: #### LD6, PTT, FIBCT, CMP, PHOS, URIC, HIV12C, HREMOP, CBCDIF, STFREV #### [facility] [address] [place] [id number] FIBRINOGEN Collected: 08/14/2018 Status: F Source: [place] 4:30 [facility] REPOSITORY TYPE CODE TESTS RESULT OUT OF REFERENCE UNITS RANGE LAB FIBCT 200-400 mg/dL High Fibrinogen 428 Performed By: #### LD6, PTT, FIBCT, CMP, PHOS, URIC, HIV12C, HREMOP, CBCDIF, STFREV #### [facility] [address] [place] [address] COMP METABOLIC PANEL Collected: 08/14/2018 Status: F Source: [place] 4:30 [facility] REPOSITORY TYPE CODE TESTS RESULT OUT OF REFERENCE UNITS RANGE LAB TP 6.3-8.0 g/dL Protein, Total 7.2 LAB ALB 3.9-4.9 g/dL Albumin 4.2 LAB CA 8.5-10.2 mg/dL Calcium, High Total 10.4 LAB TBIL 0.2-1.3 mg/dL Bilirubin, High Total 1.5 LAB ALKP 34-123 U/L Alkaline Phosphatase 61 Result Comment: Results may be falsely decreased due to interference by hemolysis. Suggest reorder as clinically indicated. LAB AST 13-35 U/L High AST 51 Result Comment: Results may be falsely increased due to interference by hemolysis. Suggest reorder as clinically indicated. LAB GLU 74-99 mg/dL High Glucose 120 Result Comment: The [place] Diabetes Association (ADA) provides guidance for cutoff values for fasting glucose and random glucose. The ADA defines fasting as no caloric intake for at least 8 hours. Fas ting plasma glucose results between 100 to 125 [...] Standards of Medical Care in Diabetes 2016, [place] Diabetes Association. Diabetes Care. 2016.39(Suppl 1). LAB BUN 7-21 mg/dL BUN 16 LAB CRET 0.58-0.96 mg/dL Creatinine 0.76 LAB NA 136-144 mmol/L Low Sodium 135 LAB K 3.7-5.1 mmol/L Potassium High 5.5 Result Comment: Results may be falsely [...] PHOS, URIC, HIV12C, HREMOP, CBCDIF, STFREV #### [place] [id number] [place] [address] PHOSPHORUS Collected: 08/14/2018 Status: F Source: [place] 4:30 PM [facility] REPOSITORY TYPE CODE TESTS RESULT OUT OF REFERENCE UNITS RANGE LAB PHOS 2.7-4.8 mg/dL Phosphorus 2.8 Result Comment: Results may be falsely increased due to interference by hemolysis. Suggest reorder as clinically indicated. Performed By: #### LD6, PTT, FIBCT, CMP, PHOS, URIC, HIV12C, HREMOP, CBCDIF, STFREV #### [place] [address] URIC ACID Collected: 08/14/2018 Status: F Source: [place] 4:30 PM [facility] REPOSITORY TYPE CODE TESTS RESULT OUT OF RANGE REFERENCE UNITS LAB URIC 2.5-6.6 mg/dL Uric Acid 4.9 Performed By: #### LD6, PTT, FIBCT, CMP, PHOS, URIC, HIV12C, HREMOP, CBCDIF, STFREV #### [place] [address] HIV 12 COMBO (AG/AB) Collected: 08/14/2018 Status: F Source: [place] 4:30 PM [facility] REPOSITORY TYPE CODE TESTS RESULT OUT OF REFERENCE UNITS RANGE LAB HVAGAB Non Reactive HIV Non Reactive 12 Ag/Ab Result Comment: (NOTE) HIV Information: [place] Rev. Code 3701.243(E): This information has been [...] PHOS, URIC, HIV12C, HREMOP, CBCDIF, STFREV #### [place] [id number] [place] [id number] HEPATITIS REMOTE PANEL Collected: 08/14/2018 Status: F Source: [place] 4:30 PM [facility] REPOSITORY TYPE CODE TESTS RESULT OUT OF REFERENCE UNITS RANGE LAB AHBCOT Negative Hep B Core Ab,Total Negative LAB AHCV Negative Hepatitis C Ab Negative IA LAB HBSAGR Negative HBsAg Negative LAB AHBSAG Negative HepB Surface Ab,Qual Negative Result Comment: NEGATIVE Performed By: #### LD6, PTT, FIBCT, CMP, PHOS, URIC, HIV12C, HREMOP, CBCDIF, STFREV #### [facility] [address] [place], [place] [address] CBC AND DIFFERENTIAL Collected: 08/14/2018 Status: F Source: [place] 4:30 PM [facility] REPOSITORY TYPE CODE TESTS RESULT OUT OF REFERENCE UNITS RANGE LAB WBC 3.70-11.00 k/uL WBC 7.62 LAB RBC 3.90-5.20 m/uL Low RBC 2.44 LAB HGB 11.5-15.5 g/dL Low Hemoglobin 7.7 LAB HCT 36.0-46.0 % Low Hematocrit 22.9 LAB MCV 80.0-100.0 fL MCV 93.9 LAB MCH 26.0-34.0 pG MCH 31.6 LAB MCHC 30.5-36.0 g/dL MCHC 33.6 LAB RDWCV 11.5-15.0 % RDW-CV High 18.0 LAB PLTCT 150-400 k/uL Low Platelet Count 25 Result Comment: Result checked and verified No clot detected. LAB MPV 9.0-12.7 fL MPV 11.5 LAB ANEUT % Neut% 3.0 Result Comment: See Staff Review LAB AANEUT 1.45-7.50 k/uL Abs Neut Low 0.23 LAB ALYMP % Lymph% 30.0 LAB AALYMP 1.00-4.00 k/uL Abs Lymph 2.29 LAB AMONO % [place]% 0.0 LAB AAMONO <0.87 k/uL Abs [place] 0.00 LAB AEOS % Eosin% 0.0 LAB AAEOS <0.46 k/uL Abs Eosin 0.00 LAB ABASO % Baso% 0.0 LAB AABASO <0.11 k/uL Abs Baso 0.00 LAB ABIMMG k/uL ANC(includeSEG+BAN 0.23 D) LAB ABLAST 0 % Blast% High 67.0 LAB ANIIMI Anisocytosis Present LAB OVAIMI Ovalocytes Few LAB PLTEST Platelet Estimate Platelet estimate decreased LAB DTYP DTYPE Manual Diff Performed By: #### LD6, PTT, FIBCT, CMP, PHOS, URIC, HIV12C, HREMOP, CBCDIF, STFREV #### [facility] [address] [place], [place] [address] STAFF REVIEW Collected: 08/14/2018 Status: F Source: [place] LAB USE ONLY 4:30 PM [facility] [place] REPOSITORY TYPE CODE TESTS RESULT OUT OF REFERENCE UNITS RANGE LAB SREVW Staff SEE COMMENT Review Result Comment: Blasts with Saroj rods, consistent with acute myeloid leukemia LAB SRPATH Pathologist Reviewed by Joseph James M.D. ([id number]) Performed By: #### LD6, PTT, FIBCT, CMP, PHOS, URIC, HIV12C, HREMOP, CBCDIF, STFREV #### [facility] [address] [place], [place] [address] PROTIME Collected: 08/14/2018 Status: F Source: [place] 4:30 PM [facility] REPOSITORY TYPE CODE TESTS RESULT OUT OF RANGE REFERENCE UNITS LAB PSEC 9.7-13.0 sec PT Sec 10.8 LAB INR 0.9-1.3 PT INR 1.0 Result Comment: Vitamin K Antagonist (VKA) Therapeutic Range: INR 2 to 3 (Target INR of 2.5) Note: For patients treated with VKA drugs, such as warfarin, the [place] [employer] 2012 Guideline recommends [...] MICHEL, et al. Chest 2012, 141:7S-47S Diallo RA, et al. [facility] 2017, 70: 252-289 Performed By: #### PT #### [facility] [address] [place], [place] [address] TYPE AND SCREEN Collected: 08/14/2018 Status: F Source: [place] 4:30 PM [facility] REPOSITORY TYPE CODE TESTS RESULT OUT OF REFERENCE UNITS RANGE LAB %ABR O ABO/RH(D) NEGATIVE LAB % Antibody NEG Screen Performed By: #### TSCR #### [facility] [address] [place], [place] [address] HISTORY PHYSICAL Observed: 08/14/2018 Status: COMPLETED Source: [place] 2:45 PM [facility] REPOSITORY HNO ID: [id number] Author: Horace Hoang Service: Hematology/Oncology Author Type: Physician Type: HANDP Filed: 08/15/2018 2:04 PM Note Text: HISTORY AND PHYSICAL EXAMINATION SERVICE DATE: 08/14/2018 SERVICE TIME: 1446 PRIMARY CARE PHYSICIAN: Yariel Villasenor MD Subjective CHIEF COMPLAINT: Pancytopenia HPI: This is a 73 year old female who presents with PMH HTN (on Lisinopril), Arthritis, takes a daily aspirin (held on admission), being admitted due to concern for acute leukemia. She presented to her PCP after experiencing persistent upset stomach, headaches, fatigue, and easy bruising. Her CBC showed pancytopenia and she was sent to [facility] for further workup. FUNCTIONAL STATUS: Independent No past medical history on file. No past surgical history on file. No family history on file. Social History Substance Use Topics - Smoking status: Not on file - Smokeless tobacco: Not on file - Alcohol use Not on file No prescriptions prior to admission. ALLERGIES No Known Allergies COMPLETE REVIEW OF SYSTEMS: GENERAL: No weight loss, fevers; + fatigue HEENT: + headaches, No changes in hearing or vision, no nose bleeds or other nasal problems NECK: Negative for lumps, goiter, pain and significant neck swelling RESPIRATORY: Negative for cough, hemoptysis, wheezing, COPD, dyspnea or shortness of breath CARDIOVASCULAR: Negative for chest pain, leg swelling, hypertension, CHF or palpitations GI:+ Nausea; No diarrhea : No history of dysuria, frequency or incontinence MUSCULOSKELETAL: Negative for joint pain or swelling, back pain or muscle pain SKIN: Negative for lesions, rash, and itching Objective PHYSICAL EXAM: Physical Exam Performed: GENERAL: Alert, no distress, cooperative SKIN: Skin color, texture, turgor normal. No rashes or lesions. HEAD/SINUSES: No significant findings EYES: PERRLA, EOMI EARS: External ears normal, canals clear NOSE: Nares normal. Septum midline. OROPHARYNX: Lips, mucosa, and tongue normal. Teeth and gums normal. Oropharynx normal. NECK: No jugulovenous distention BACK: Back symmetric, Normal curvature LUNGS: Lungs clear to auscultation, Good diaphragmatic excursion CARDIAC: Normal S1 and S2 ABDOMEN: Abdomen soft, non-tender, BS normal, No masses or organomegaly EXTREMITIES: Extremities normal, no deformities, edema, clubbing or skin discoloration. Good capillary refill., No ulcers NEURO: Gait normal. Reflexes normal and symmetric. PULSES: 2+ radial, 2+ carotid BP 148/78 Pulse 100 Temp (Src) 98.3 (Oral) Resp 16 Ht 5' 5.945[verified by Piper HERNANDEZ[ (1.68m) Wt 214 lb 1.1 oz (97.1kg) SpO2 99% BMI 34.61 kg/(m2). DATA: Diagnostic tests reviewed for today's visit: Most recent labs and imaging results. Assessment/Plan Active Hospital Problems Diagnosis - Pancytopenia (HCC) Tari Black is a 73 year old female with PMH of HTN and arthritis being admitted due to concern for acute leukemia after going to her PCP for upset stomach, headaches, and fatigue (CBC showing pancytopenia). - CXR, EKG ordered - mIVF, allopurinol, TLS labs q 8 hours - Plan for bone marrow biopsy tomorrow 08/15 - Transfuse LR + IR blood products for Hgb <8; Plt <10 - CBC ordered on admission - Headache - CT brain 08/14 - PRN ultram - Nausea - Zofran PRN - Immunodeficiency (HCC) - ppx acyclovir - HTN (hypertension) - Continue home lisinopril - Electrolyte imbalance risk - Replete electrolytes per protocol - mIVF NS @ 100cc/hr - Hospital discharge follow-up - Following Dr Hoang Medication and Non-Pharmacologic VTE Prophylaxis/Anticoagulants SIGNATURE: Harini Cassidy APRN.CNP PATIENT NAME: Tari Black DATE: August 14, 2018 TIME: 2:45 PM PAGER/CONTACT #: [phone] HEMATOLOGY/MEDICAL ONCOLOGY STAFF: TEACHING PHYSICIAN NOTE OF PERSONAL INVOLVEMENT IN CARE I have reviewed the progress note obtained and documented by the licensed independent practitioner and I personally participated in the murphy components. I have discussed the case and management of the patient's care with the licensed independent practitioner. The following comments revise or confirm relevant murphy components of the licensed independent practitioner's note. IMPRESSION/PLAN: Suspected acute leukemia. Patient admitted for induction chemotherapy. The [facility] conducts standard manufacturing quality engineer validation for all diagnosed patients new to the cancer institute and this will also be performed during this admission. Schedule for BMBx and send blood for flow cytometry. SUpportive care and transfusion support. ? Horace Hoang MD PhD MPH Associate Staff Hematologic Oncology and Blood Disorders Pager [phone] Date of service: 08/14/2018 ? FE Collected: 08/12/2018 Status: F Source: [facility] 3:42 PM [facility] REPOSITORY TYPE CODE TESTS RESULT OUT OF RANGE REFERENCE UNITS LAB FE(LOINC) 37-170 mcg/dL Iron 58 Performed By: #### ESR, CBCPR, TSH, DIFF, FE, CRP, MORPH, GFR, LIPID, CBC, CMP #### [place] [address] TSH Collected: 08/12/2018 Status: F Source: [facility] 3:42 PM [facility] REPOSITORY TYPE CODE TESTS RESULT OUT OF RANGE REFERENCE UNITS LAB TSH(LOINC) 0.360-3.740 mcIU/mL TSH 1.050 Result Comment: Please note as of 06/01/17 new pediatric reference intervals were added for this test. Performed By: #### ESR, CBCPR, TSH, DIFF, FE, CRP, MORPH, GFR, LIPID, CBC, CMP #### [address] [address] CMP Collected: 08/12/2018 Status: F Source: [facility] 3:42 PM [facility] REPOSITORY TYPE CODE TESTS RESULT OUT OF REFERENCE UNITS RANGE LAB GLU(LOINC) 82-115 mg/dL Glucose Level 109 LAB NA(LOINC) 136-145 mEq/L Sodium Level 142 LAB K(LOINC) 3.5-5.0 mEq/L Potassium Level 4.4 LAB CL(LOINC) 98-110 mEq/L Chloride 107 LAB CO2(LOINC) 22-32 mEq/L CO2 27 LAB EBAL(LOINC 4.0-15.0 mEq/L ) Electrolyte Balance 8.0 LAB BUN(LOINC) 8.0-22.0 mg/dL BUN High 25.0 LAB CRE(LOINC) 0.50-1.20 mg/dL Creatinine Lvl (s) 0.76 LAB BC(LOINC) 10.0-22.0 ratio High BUN/Creatinine 32.9 Ratio LAB CA(LOINC) 8.4-10.1 mg/dL [...] 10-49 U/L ALT/SGPT 27 Performed By: #### ESR, CBCPR, TSH, DIFF, FE, CRP, MORPH, GFR, LIPID, CBC, CMP #### [place] [address] .GFR Collected: 08/12/2018 Status: F Source: [facility] 3:42 PM [facility] REPOSITORY TYPE CODE TESTS RESULT OUT OF REFERENCE UNITS RANGE LAB GFRAA(LOINC ml/min/1.73 ) sqm GFR >60 [place] Result Comment: GFR Population mean for , [...] 15 mL/min/1.73 square meters Performed By: #### ESR, CBCPR, TSH, DIFF, FE, CRP, MORPH, GFR, LIPID, CBC, CMP #### [place] [address] LIPID Collected: 08/12/2018 Status: F Source: [facility] 3:42 PM [facility] REPOSITORY TYPE CODE TESTS RESULT OUT OF REFERENCE UNITS RANGE LAB CHOL(LOINC 50-199 mg/dL ) Cholesterol 196 Result Comment: Cholesterol Reference Interval: Less than 200 Desirable 200-239 Borderline high risk 240 and above High risk LAB TRIG(LOINC) 3-149 mg/dL Triglycerides High 296 Result Comment: Triglyceride Reference Interval: Less than 150 Normal 150-199 Borderline high risk 200-499 High risk 500 or higher Very high risk LAB HD(LOINC) 40-59 mg/dL HDL Low Cholesterol 33 Result Comment: HDL Reference Interval: [...] above Very high risk Performed By: #### ESR, CBCPR, TSH, DIFF, FE, CRP, MORPH, GFR, LIPID, CBC, CMP #### [address] [address] ESR Collected: 08/12/2018 Status: F Source: [facility] 3:42 PM [facility] REPOSITORY TYPE CODE TESTS RESULT OUT OF REFERENCE UNITS RANGE LAB ESR(LOINC) 0-30 mm/hr Erythrocyte High Sed Rate 89 Performed By: #### ESR, CBCPR, TSH, DIFF, FE, CRP, MORPH, GFR, LIPID, CBC, CMP #### [address] [address] .MANUAL DIFF Collected: 08/12/2018 Status: C Source: [facility] 3:42 PM [facility] REPOSITORY TYPE CODE TESTS RESULT OUT OF RANGE REFERENCE UNITS LAB LIMIT(LOIN C) Cells Counted 100 LAB NEUM(LOINC 50.0-75.0 % ) Low Neutrophil %, 2.0 Manual LAB LYMM(LOINC 20.0-40.0 % ) Lymphocyte %, 22.0 Manual LAB MONM(LOINC 2.0-13.0 % ) Low Monocyte %, Manual 0.0 LAB EOM(LOINC) 0.0-6.0 % Eosinophil %, 0.0 Manual LAB BASM(LOINC 0.0-2.5 % ) Basophil %, Manual 0.0 LAB OCT(LOINC) % Other Cell Types 0.0 LAB ANEUM(LOIN 2.25-8.10 10 3/mcL C) Abnormal Neutrophil, Abs 0.13 Alert Manual LAB ABLYMM(BARRIE 0.90-4.32 10 3/mcL NC) Lymphocyte, Abs 1.52 Manual LAB AMONM(LOIN 0.09-1.40 10 3/mcL C) Low Monocyte, Abs 0.00 Manual LAB AEOSM(LOIN 0.00-0.65 10 3/mcL C) Eosinophil, Abs 0.00 Manual LAB ABASM(LOIN 0.00-0.27 10 3/mcL C) Basophil, Abs 0.00 Manual LAB BLAST(LOIN % C) Blast Abnormal 76.0 Alert Performed By: #### ESR, CBCPR, TSH, DIFF, FE, CRP, MORPH, GFR, LIPID, CBC, CMP #### [address] [address] .MORPH Collected: 08/12/2018 Status: C Source: [facility] 3:42 PM [facility] REPOSITORY TYPE CODE TESTS RESULT OUT OF REFERENCE UNITS RANGE LAB PLTE(LOINC ) Platelet Estimate Grt Decreased LAB DCOMM(LOIN C) Differential See Below Comment Result Comment: Pathologist to review smear. other cells to be identified by pathologist LAB ANIS(LOINC) Anisocytosis Slight LAB POIK(LOINC) Poik Slight LAB SCHIS(LOINC) Schistocyte Few LAB SPHR(LOINC) Spherocyte Few Performed By: #### ESR, CBCPR, TSH, DIFF, FE, CRP, MORPH, GFR, LIPID, CBC, CMP #### [place] [address] CBC Collected: 08/12/2018 Status: F Source: [facility] 3:42 [facility] REPOSITORY TYPE CODE TESTS RESULT OUT OF REFERENCE UNITS RANGE LAB WBC(LOINC) 4.50-10.80 10 3/mcL WBC 6.90 LAB RBCCT(LOINC 4.10-5.30 10 6/mcL ) Low RBC 2.50 LAB HGB(LOINC) 12.0-16.0 G/dL Low Hgb 8.1 LAB HCT(LOINC) 34.0-46.0 % Low Hct 23.1 LAB MCV(LOINC) 80.0-99.0 fL MCV 92.6 LAB MCH(LOINC) 27.0-33.0 pg MCH 32.4 LAB MCHC(LOINC) 32.0-36.0 G/dL MCHC 35.0 LAB RDW(LOINC) 11.5-15.5 % High RDW 17.3 LAB PLT(LOINC) 150-450 10 3/mcL Low Platelet 29 LAB MPV(LOINC) 6.6-10.5 fL MPV 8.6 Performed By: #### ESR, CBCPR, TSH, DIFF, FE, CRP, MORPH, GFR, LIPID, CBC, CMP #### [place] [address] CRP Collected: 08/12/2018 Status: F Source: [facility] 3:42 [facility] REPOSITORY TYPE CODE TESTS RESULT OUT OF REFERENCE UNITS RANGE LAB CRP(LOINC) <=0.80 mg/dL High C-Reactive 2.18 Protein Performed By: #### ESR, CBCPR, TSH, DIFF, FE, CRP, MORPH, GFR, LIPID, CBC, CMP #### [address] [address] .CBC PATH REVIEW Collected: 08/12/2018 Status: F Source: [facility] 3:42 PM [facility] REPOSITORY TYPE CODE TESTS RESULT OUT OF REFERENCE UNITS RANGE LAB CBCPR(LOIN C) ACUTE CBC Path LEUKEMIA WITH Review 75% BLASTS. RECOMMEND HEMATOLOGY CONSULT WITH BONE MARROW EVALUATION. Result Comment: Electronically signed by: RACHEL BLAKE MD 08.13.2018 10:05 EDT Performed By: #### ESR, CBCPR, TSH, DIFF, FE, CRP, MORPH, GFR, LIPID, CBC, CMP #### [address] [address] ALLERGIES ALLERGIES DATE TYPE / CODE NAME / CODE REACTION SEVERITY SOURCE 10/11/2018 Drug No Known Unknown [place] Allergy/327534476(S Allergies/F[facility] [facility]) [address](RXNORM) Hospital Repository Drug NO KNOWN [place] Class/694184849(SNO ALLERGIES Clinic Other MED CT) [place] Repository NG/200837094(SNOMED NO KNOWN [facility]) ALLERGIES [facility] Repository Miscellaneous No Known Drug Moderate Mike Pomerene Allergy/937901738(S Allergies (Severity [facility] NOMED CT) Modifier) [facility] (Qualifier Repository Value) ENCOUNTERS ENCOUNTERS ADMIT/DISCHARGE ACCOUNT NUMBER ADMITTING ENCOUNTER LOCATION SOURCE CLASS 10/17/2018/10/20/20 [id number] Marly[place], Inpatient Catar[place] Cat[place] 18 Luis Encounter [facility] ding:LF2Pcyb Repository : CW641Skk: 1 10/17/2018 [id number] [place] Ambulatory BMSBuilding: [place] Luis BMS.[facility] Repository 10/17/2018 [id number] [place] Ambulatory BMSBuilding: [place] Luis BMS.CF.[facility] [place] [place] Repository 10/17/2018 [id number] [place] Ambulatory BMSBuilding: [place] Luis BMS.[facility] Repository 10/17/2018 [id number] [place] Ambulatory BMSBuilding: [place] Luis BMS.CF.[facility] [place] [place] Repository 10/17/2018 [id number] [place]arly[place], Ambulatory BMSBuilding: [place] Luis BMS.[facility] Repository 10/17/2018 [id number] [place], Ambulatory BMSBuilding: [place] Luis BMS.CF.[facility] [place] [place] Repository 10/17/2018 [id number] Ambulatory BMSBuilding: [place] BMS.[facility] Repository 10/17/2018 [id number] Ambulatory [facility] ding:MEDOUTP Repository 10/16/2018/10/16/20 [id number] Ambulatory [address] Repository 10/11/2018 [id number] White, Ambulatory BMSBuilding: [place] Shannan BMS.[facility] Repository 10/11/2018 [id number] [place], Ambulatory BMSBuilding: [place] Shannan BMS.[facility] Repository 10/11/2018 [id number] [place], Ambulatory BMSBuilding: [place] Shannan BMS.[facility] Repository 10/11/2018 [id number] White, Ambulatory BMSBuilding: [place] Shannan BMS.[facility] Repository 10/11/2018 [id number] White, Ambulatory BMSBuilding: [place] Shannan BMS.[facility] Repository 10/11/2018/10/15/20 [id number] White, Inpatient Catarino Catarino 18 Shannan [facility] ding:[address] Repository : UK640Fqz: 1 10/07/2018 [id number] Ambulatory [facility] ding:MEDOUT Repository 10/06/2018 [id number] Ambulatory [facility] ding:LABSPEC Repository 10/06/2018/10/06/20 [id number] Ambulatory [address] Repository 10/03/2018/10/06/20 [id number] Ambulatory [address] Repository 10/03/2018 [id number] Ambulatory [facility] ding:MEDOUTP Repository 10/02/2018/10/02/20 [id number] Ambulatory [address] Repository 10/02/2018/10/06/20 [id number] Ambulatory [address] Repository 10/01/2018/10/02/20 [id number] Ambulatory [address] Main [place] Repository 09/30/2018 [id number] [facility] Rep[facility] 09/30/2018/10/01/20 [id number] Ambulatory [address] Main [place] Repository 09/29/2018/09/30/20 [id number] Ambulatory [address] Main [place] Repository 09/29/2018/09/29/20 [id number] Ambulatory [address] Main [place] Repository 09/26/2018 [id number] [facility] Repository 09/25/2018/09/25/20 [id number] Ambulatory [address] [place] Repository 09/25/2018/09/25/20 [id number] Ambulatory [address] Main [place] Repository 09/23/2018 [id number] Ambulatory [facility] Hospital ding:MEDOUTP Repository 09/22/2018/09/23/20 [id number] Ambulatory [address] Main [place] Repository 09/22/2018/09/22/20 [id number] Ambulatory [address] [place] Repository 09/19/2018 [id number] [facility] Repository 09/18/2018/09/18/20 [id number] Ambulatory [address] [place] Repository 09/16/2018 [id number] Ambulatory [facility] Hospital ding:MEDOUTP Repository 09/15/2018/09/15/20 [id number] Ambulatory [address] [place] Repository 09/12/2018 [id number] [facility] Repository 09/11/2018/09/11/20 [id number] Ambulatory [address] [place] Repository 09/09/2018 [id number] [facility] ding[facility]MED[facility] Repository 09/08/2018/09/08/20 [id number] Ambulatory [address] [place] Repository 09/05/2018 [id number] [facility] ding:MED[facility]P Repository 09/04/2018/10/18 [id number] Ambulatory [place] 18 [facility] Main [place] Repository 09/02/2018 [id number] Ambulatory [facility] ding:MEDOUTP Repository 09/01/2018/09/01/20 [id number] Ambulatory [address] [place] Repository 08/29/2018/09/01/20 [id number] Ambulatory [address] [place] Repository 08/29/2018 [id number] Ambulatory [facility] ding:MEDOUTP Repository 08/28/2018/08/29/20 [id number] Ambulatory [address] [place] Repository 08/28/2018/08/28/20 [id number] Ambulatory [address] [place] Repository 08/28/2018/08/28/20 [id number] Ambulatory [address] Other [place] Repository 08/28/2018/08/28/20 [id number] Ambulatory AZKSENIA [address] MEDICAL Repository CENTERBuildi ng:REEMA 08/27/2018/08/28/20 [id number] Ambulatory [address] [place] Repository 08/26/2018/08/27/20 [id number] Ambulatory [address] [place] Repository 08/25/2018 [id number] JACKLYN, Ambulatory Mike VALDEZ [facility] Repository 08/25/2018/08/27/20 [id number] Ambulatory [address] [place] Repository 08/25/2018/08/25/20 [id number] Ambulatory [address] [place] Repository 08/25/2018/08/25/20 [id number] Ambulatory [address] [facility] [place] Repository 08/20/2018/08/22/20 [id number] Ambulatory [address] [place] Repository 08/20/2018/08/22/20 [id number] Ambulatory [address] [place] Repository 08/20/2018/08/28/20 [id number] Ambulatory RBuilding:LISA Gonzales 18 [facility] Repository 08/14/2018/08/19/20 [id number] NATALYA, Jerry [place] [address] SUDIPTO Encounter [facility] Main [place] Repository PAYERS PAYERS ENCOUNTER GUARANTOR PAYER SUBSCRIBER SOURCE 10/17/2018 TARI [id number] Primary TARI A YODERDOB: [place] TR Insurance:YARSANISM [id number] [place] [address]Niz: GROUPPolicy Number: Repository [id number] (HP) Date: [address] [place] [address]GH: 10/17/2018 Secondary NOT GIVENUNK [place] Insurance:SELF PAY [facility]: Effective Repository Date:2018-10-17 10/17/2018 TARI A [id number] Primary TARI A YODERDOB: [place] TR Insurance:YARSANISM [id number] [place] [address]Lgh: GROUPPolicy Number: Repository [id number] (HP) Date: [address] [place] [address]OC: 10/17/2018 Secondary NOT GIVENUNK [place] Insurance:SELF PAY [facility] Number: Effective Repository Date:2018-10-17 10/17/2018 TARI A [id number] Primary TARI A YODERDOB: [place] Insurance:YARSANISM [id number] [place] [address]Pmt: GROUPPolicy Number: Repository [id number] (HP) Date: [address] [place] [address]SZ: 10/17/2018 Secondary NOT GIVENUNK [place] Insurance:SELF PAY [facility] Number: Effective Repository Date:2018-10-17 10/17/2018 TARI A [id number] Primary TARI A YODERDOB: [place] TR Insurance:YARSANISM [id number] [place] [address]Wrr: GROUPPolicy Number: Repository [id number] (HP) Date: [address] [place] [address]RU: 10/17/2018 Secondary NOT GIVENUNK [place] Insurance:SELF PAY [facility]: Effective Repository Date:2018-10-17 10/17/2018 TARI Raimundo [id number] Primary TARI A YODERDOB: [place] TR Insurance:YARSANISM [id number] [address] [address]Iyt: GROUPPolicy Number: Repository [id number] (HP) Date: [address] [address]JK: 10/17/2018 Secondary NOT GIVENUNK [place] Insurance:SELF PAY [facility] Number: Effective Repository Date:2018-10-17 10/17/2018 TARI Eubanks [id number] Primary TARI A YODERDOB: [place] Insurance:YARSANISM [id number] [address]Qmg: GROUPPolicy Number: Repository [id number] (HP) Date: [address] [address]TM: 10/17/2018 Secondary NOT GIVENUNK [place] Insurance:SELF PAY [facility] Number: Effective Repository Date:2018-10-17 10/17/2018 TARI A [id number] Primary TARI A YODERDOB: [place] Insurance:YARSANISM [id number] [address] [address]Knl: GROUPPolicy Number: Repository [id number] (HP) Date: [address] [address]ZN: 10/17/2018 Secondary NOT GIVENUNK [place] Insurance:SELF PAY [facility] Number: Effective Repository Date:2018-10-17 10/17/2018 TARI A [id number] Primary TARI A YODERDOB: [place] Insurance:YARSANISM [id number] [place] [address]Mws: GROUPPolicy Number: Repository [id number] (HP) Date: [address] [address]UB: 10/17/2018 Secondary NOT GIVENUNK [place] Insurance:SELF PAY [facility] Number: Effective Repository Date:2018-10-17 10/17/2018 TARI A [id number] Primary TARI A YODERDOB: [place] TR Insurance:YARSANISM [id number] [place] [address]Whw: GROUPPolicy Number: Repository [id number] (HP) Date: [address] [address]UK: 10/17/2018 Secondary NOT GIVENUNK [place] Insurance:SELF PAY [facility] Number: Effective Repository Date:2018-10-16 10/11/2018 TARI A [id number] Primary TARI A YODERDOB: [place] Insurance:YARSANISM [id number] [address]Rcs: GROUPPolicy Number: Repository [id number] (HP) Date: [address] [address]MF: 10/11/2018 Secondary NOT GIVENUNK [place] Insurance:SELF PAY [facility] Number: Effective Repository Date:2018-10-11 10/11/2018 TARI A [id number] Primary TARI A YODERDOB: [place] TR Insurance:YARSANISM [id number] [address]Yai: GROUPPolicy Number: Repository [id number] (HP) Date: [address] [address]WE: 10/11/2018 Secondary NOT GIVENUNK [place] Insurance:SELF PAY [facility] Number: Effective Repository Date:2018-10-11 10/11/2018 TARI A [id number] Primary TARI A YODERDOB: [place] Insurance:YARSANISM [id number] [place] [address]Cly: GROUPPolicy Number: Repository [id number] (HP) Date: [address] [address]MX: 10/11/2018 Secondary NOT GIVENUNK [place] Insurance:SELF PAY [facility] Number: Effective Repository Date:2018-10-11 10/11/2018 TARI Eubanks [id number] Primary TARI A YODERDOB: [place] Insurance:YARSANISM [id number] [place] [address]Jmz: GROUPPolicy Number: Repository [id number] (HP) Date: [address] [address]KW: 10/11/2018 Secondary NOT GIVENUNK [place] Insurance:SELF PAY [facility] Number: Effective Repository Date:2018-10-11 10/11/2018 TARI Eubanks [id number] Primary TARI A YODERDOB: [place] TR Insurance:YARSANISM [id number] [address] [place] [address]Dxh: GROUPPolicy Number: Repository [id number] (HP) Date: TWP [address] [place] [address]XL: 10/11/2018 Secondary NOT GIVENUNK [place] Insurance:SELF PAY [facility]: Effective Repository Date:2018-10-11 10/11/2018 TARI A [id number] Primary TARI A YODERDOB: [place] TR Insurance:YARSANISM [id number] [place] [address]Gcr: GROUPPolicy Number: Repository [id number] (HP) Date: [address] [address]FG: 10/11/2018 Secondary NOT GIVENUNK [place] Insurance:SELF PAY [facility] Number: Effective Repository Date:2018-10-11 10/07/2018 TARI A [id number] Primary TARI A YODERDOB: [place] TR Insurance:YARSANISM [id number] [address] [place] [address]Edx: GROUPPolicy Number: Repository [id number] (HP) Date: TW[address] [address]PI: 10/07/2018 Secondary NOT GIVENUNK [place] Insurance:SELF PAY [facility] Number: Effective Repository Date:2018-10-06 10/06/2018 TARI A [id number] Primary TARI A YODERDOB: [place] TR Insurance:YARSANISM [id number] [address] [place] [address]Jgn: GROUPPolicy Number: Repository [id number] (HP) Date: [address] [address]OG: 10/06/2018 Secondary NOT GIVENUNK [place] Insurance:SELF PAY [facility] Number: Effective Repository Date:2018-10-06 10/03/2018 TARI A [id number] Primary TARI A YODERDOB: [place] TR Insurance:YARSANISM [id number] [address] [place] [address]Jyp: GROUPPolicy Number: Repository [id number] (HP) Date: TWP [address] [place] [address]LP: 10/03/2018 Secondary NOT GIVENUNK [place] Insurance:SELF PAY [facility]: Effective Repository Date:2018-10-02 09/30/2018 TARI A [id number] Primary TARI A YODERDOB: [place] TR Insurance:YARSANISM [id number] [place] [address]Gjz: GROUPPolicy Number: Repository [id number] (HP) Date: TWP RD [address] [place] [address]JT: 09/30/2018 Secondary NOT GIVENUNK [place] Insurance:SELF PAY [facility] Number: Effective Repository Date:2018-09-29 09/26/2018 TARI Eubanks [id number] Primary TARI A YODERDOB: [place] TR Insurance:YARSANISM [id number] [place] [address]Srh: GROUPPolicy Number: Repository [id number] (HP) Date: TW[address] [address]KC: 09/26/2018 Secondary NOT GIVENUNK [place] Insurance:SELF PAY [facility] Number: Effective Repository Date:2018-09-25 09/23/2018 TARI Eubanks [id number] Primary TARI A YODERDOB: [place] TR Insurance:YARSANISM [id number] [place] [address]Pvl: GROUPPolicy Number: Repository [id number] (HP) Date: TWP [address] [address]DI: 09/23/2018 Secondary NOT GIVENUNK [place] Insurance:SELF PAY [facility] Number: Effective Repository Date:2018-09-22 09/19/2018 TARI Eubanks [id number] Primary TARI A YODERDOB: [place] TR Insurance:YARSANISM [id number] [place] [address]Rrf: GROUPPolicy Number: Repository [id number] (HP) Date: TWP RD [address] [place] [address]FQ: 09/19/2018 Secondary NOT GIVENUNK [place] Insurance:SELF PAY [facility] Number: Effective Repository Date:2018-09-18 09/16/2018 TARI A [id number] Primary TARI A YODERDOB: [place] TR Insurance:YARSANISM [id number] [address] [place] [address]Fpu: GROUPPolicy Number: Repository [id number] (HP) Date: TWP [address] [address]QI: 09/16/2018 Secondary NOT GIVENUNK [place] Insurance:SELF PAY [facility] Number: Effective Repository Date:2018-09-15 09/12/2018 TARI A [id number] Primary TARI A YODERDOB: [place] TR Insurance:YARSANISM [id number] [address] [place] [address]Gab: GROUPPolicy Number: Repository [id number] (HP) Date: TWP [address] [address]VR: 09/12/2018 Secondary NOT GIVENUNK [place] Insurance:SELF PAY [facility] Number: Effective Repository Date:2018-09-11 09/09/2018 TARI A [id number] Primary TARI A YODERDOB: [place] TR Insurance:YARSANISM [id number] [address] [place] [address]Wnv: GROUPPolicy Number: Repository [id number] (HP) Date: T[address] [address]CL: 09/09/2018 Secondary NOT GIVENUNK [place] Insurance:SELF PAY [facility] Number: Effective Repository Date:2018-09-08 09/05/2018 TARI A [id number] Primary TARI A YODERDOB: [place] TR Insurance:YARSANISM [id number] [address]Ose: GROUPPolicy Number: Repository [id number] (HP) Date: TW[address] [address]CM: 09/05/2018 Secondary NOT GIVENUNK [place] Insurance:SELF PAY [facility] Number: Effective Repository Date:2018-09-04 09/02/2018 TARI A [id number] Primary TARI A YODERDOB: [place] TR Insurance:YARSANISM [id number] [place] [address]Kps: GROUPPolicy Number: Repository [id number] (HP) Date: TW[address] [address]VX: 09/02/2018 Secondary NOT GIVENUNK [place] Insurance:SELF PAY [facility] Number: Effective Repository Date:2018-09-01 08/29/2018 TARI A [id number] Primary TARI A YODERDOB: [place] TR Insurance:YARSANISM [id number] [place] [address]Nof: GROUPPolicy Number: Repository .Effective (HP) Date: TW[address] [address]JQ: 08/29/2018 Secondary NOT GIVENUNK [place] Insurance:SELF PAY [facility] Number: Effective Repository Date:2018-08-28 08/28/2018 TARI YODERDOB: Primary TARI YODERDOB: [facility] [id number] Insurance:YARSANISM [id number] [address] Number: [id number]: [id number] Date: () 08/25/2018 TARI A YODERDOB: Primary TARI A YODERDOB: Mike Philippe Insurance:RADIOLOGY [id number] [facility] PACKAGEPolicy Number: 9 [facility] [address] [place] [address], Effective Date: [address] [place] [address], Repository [place] [id number]: S[place] [phone] () 08/20/2018 TARI YODERDOB: Primary TARI YODERDOB: Caret [employer] Insurance:SELF [id number] [facility] PAYPolicy Number: [address] [place] [address], Effective [address] [place] [address], [place] [address]Bzq: Date:2018-08-19 - [place] [address]Szf: [id number] Name: ()Tel: [phone] (HP) ([phone]) [phone]
== END 2018-10-20 15:46 | disposition hospice, home (50) | DRG 871 ==
LOC: ED 11:19 → MS3 17:51
PROVIDERS: Hospitalist; Internal Medicine Critical Care Medicine; Physician Assistant; Emergency Provider Emergency Medicine; Family Provider Internal Medicine Hematology & Oncology; PCP Internal Medicine Hematology & Oncology; Visit Provider Family Medicine
DX: A41.9 Sepsis, unspecified organism (principal); J18.9 Pneumonia, unspecified organism; C92.00 Acute myeloblastic leukemia, not having achieved remission; D70.3 Neutropenia due to infection; R50.81 Fever presenting with conditions classified elsewhere; E66.9 Obesity, unspecified; Z66 Do not resuscitate; Z51.5 Encounter for palliative care; R33.9 Retention of urine, unspecified; Y95 Nosocomial condition; D64.81 Anemia due to antineoplastic chemotherapy; T45.1X5A Adverse effect of antineoplastic and immunosuppressive drugs, initial encounter; D69.59 Other secondary thrombocytopenia; I10 Essential (primary) hypertension; Z68.34 Body mass index [BMI] 34.0-34.9, adult
CPT/HCPCS: 36415; 71046; 71260; 80048; 80053; 80202; 81001; 83605; 85025; 86606; 86644; 86850; 86900; 86920; 86922; 86965; 87040; 87070; 87086; 87205; 87449; 94640; 94667; 97802; 99283; J2185; J7030; J7040; J7050; P9016; P9035; Q9967; A4216